=== PATIENT | male | born 1955 | race Caucasian/White ===

== ENCOUNTER 2017-10-03 11:53 | Outpatient (RCR) | payer MEDICARE, SELFPAY ==
[2017-09-10 16:59] LABS: Prothrombin Time (Protime)PT. 35.1 SECONDS (11.7-14.9)
[2017-09-10 17:25] LABS: International Normalized Ratio 3.7
[2017-10-03 12:27] LABS: Absolute Lymphocyte Count 1.36 X10^3/ul (0.83-4.51); Absolute Neutrophil Count 5.1 X10^3/uL (2.0-7.7); Basophil# 0.02 X10^3/uL; Basophil% 0.3 % (0-1); Eosinophil# 0.14 X10^3/uL; Eosinophils% 1.9 % (0-5); Hematocrit 45.5 % (40-54); Hemoglobin 15.1 g/dl (13.0-16.5); Lymphocyte # 1.36 X10^3/ul (4.0); Lymphocyte % 18.5 % (19-41); Mean Corp Hgb Conc 33.2 g/gl (32-36); Mean Corpuscular Hgb 32.7 pg (27.0-32.0); Mean Corpuscular Volume 98.5 fL (80-94); Mean Platelet Vol. 8.9 fl (6.2-12.0); Monocyte# 0.72 X10^3/uL; Monocyte% 9.8 % (0-10); Neutrophil # 5.09 X10^3/uL (2.7-7.7); Neutrophil % 69.1 % (47-70); Platelet Count 179 K/mm3 (150-450); RBC Distribution Width CV 13.9 % (11.6-14.6); RBC Distribution Width SD 49.4 fl (35.1-43.9); Red Blood Count 4.62 M/mm3 (4.6-6.2); White Blood Count 7.4 K/mm3 (4.4-11.0)
[2017-10-03 12:29] LABS: POSITIVE COUNT NO; POSITIVE DIFFERENTIAL NO; POSITIVE MORPHOLOGY NO
[2017-10-03 12:41] LABS: International Normalized Ratio 3.1
[2017-10-03 12:57] LABS: Vitamin B12 506 pg/mL (211-911)
[2017-10-03 13:00] LABS: ALB/GLOB Ratio 0.8 RATIO (0.9-2.4); AST(SGOT) 26 U/L (15-37); Alanine Aminotransfer ALT/SGPT 37 U/L (16-61); Albumin, Serum 3.5 g/dL (3.2-5.0); Alkaline Phosphatase 133 U/L (45-117); Anion Gap 7 (5-15); BUN 11 mg/dL (7-18); BUN/Creat Ratio 11.3 RATIO (10-20); Calcium,Total 8.3 mg/dL (8.5-10.1); Chloride 103 mmol/L (98-107); Creatinine, Serum 0.97 mg/dL (0.70-1.30); EST Glomerular Filtration Rate 83 mL/min (>60); Est Glom Filt Rate - Afr Amer 101 mL/min (>60); Globulin 4.2 g/dL (2.2-4.2); Glucose 93 mg/dL (70-110); Potassium 4.4 mmol/L (3.5-5.1); Protein, Total 7.7 g/dL (6.4-8.2); Sodium Level 138 mmol/L (136-145); Thyroid Stim Hormone (TSH) 1.66 uIU/mL (0.358-3.74)
[2017-10-05 03:56] LABS: Rapid Plasmin Reagin (RPR) NONREACTIVE (NONREACTIVE)
== END 2017-10-03 12:15 | disposition home or self-care (01) ==
LOC: LAB 11:53
PROVIDERS: Family Provider Preventive Medicine Occupational Medicine; PCP Preventive Medicine Occupational Medicine; Visit Provider Internal Medicine Cardiovascular Disease
DX: Z79.01 Long term (current) use of anticoagulants (principal); Z95.4 Presence of other heart-valve replacement; Z79.899 Other long term (current) drug therapy; F03.90 Unspecified dementia, unspecified severity, without behavioral disturbance, psychotic disturbance, mood disturbance, and anxiety
CPT/HCPCS: 36415; 80053; 82607; 84443; 85025; 85610; 86592

== ENCOUNTER → 2017-10-08 12:31 | Outpatient (CLI) | payer MEDICARE, SELFPAY ==
--- NOTE | 2017-10-08 13:05 | MRI_ITS ---
STUDY: MRI BRAIN WITHOUT CONTRAST REASON FOR EXAM: Male, 61 years old. MEMORY LOSS,DEMENTIA X 9 MONTHS. TECHNIQUE: Standardized multiplanar fat and water weighted pulse sequences were obtained. COMPARISON: May 12, 2017 FINDINGS: There is mild cerebral atrophy with widening of the extra-axial spaces and ventricular dilatation. There are a limited number of small white matter hyperintensities, distributed throughout the deep white matter tracts of the cerebral hemispheres, consistent with mild chronic white matter ischemic changes. Normal bilateral basal ganglia. Normal thalami. There is no extra-axial fluid accumulation. Normal flow voids within the major intracranial circulation suggesting patency by spin echo criteria. Normal sella turcica, pituitary gland, infundibular stalk, optic chiasm and hypothalamus. Normal tectal plate and pineal gland. Normal midbrain, vikki and medulla. Normal cerebellum. Normal basal cisterns. Normal bilateral temporal bones. Normal bilateral internal auditory canals. There is a left mastoid fluid signal. MRI/Brain without Contrast IMPRESSION: No acute intracranial abnormality or masses. Mild chronic microvascular ischemic changes. Electronically Signed: Cory Lopez MD at 11:35 EST Tel , Service support ,
== END ==
PROVIDERS: Family Provider Preventive Medicine Occupational Medicine; PCP Preventive Medicine Occupational Medicine; Visit Provider Psychiatry & Neurology Neurology
DX: R41.3 Other amnesia (principal); F03.90 Unspecified dementia, unspecified severity, without behavioral disturbance, psychotic disturbance, mood disturbance, and anxiety
CPT/HCPCS: 70551

== ENCOUNTER 2017-10-30 11:36 | Outpatient (RCR) | payer MEDICARE, SELFPAY ==
[2017-09-10 15:30] VITALS: BMI 35.6
[2017-09-10 15:34] VITALS: BP 96/60
[2017-10-30 12:56] LABS: International Normalized Ratio 3.2; Prothrombin Time (Protime)PT. 31.2 SECONDS (11.7-14.9)
== END 2017-10-30 15:00 | disposition home or self-care (01) ==
LOC: LAB 11:36
PROVIDERS: Family Provider Preventive Medicine Occupational Medicine; PCP Preventive Medicine Occupational Medicine; Visit Provider Internal Medicine Cardiovascular Disease
DX: Z95.4 Presence of other heart-valve replacement (principal); Z79.01 Long term (current) use of anticoagulants
CPT/HCPCS: 36415; 85610

== ENCOUNTER → 2017-11-05 10:35 | Outpatient (CLI) | payer MEDICARE, SELFPAY ==
--- NOTE | 2017-11-05 08:00 | PET_ITS ---
EXAMINATION: FDG PET BRAIN INDICATIONS: A 61-year-old male with reported history of short-term memory loss. COMPARISON EXAMINATION: None available. TECHNIQUE: Following the intravenous administration of 12.05 mCi of F-18 deoxyglucose via the left antecubital fossa, multiplanar image acquisitions of the brain obtained at 60 minutes post radiopharmaceutical administration reveal: SERUM GLUCOSE LEVEL: 101 mg/dl. HEIGHT: 73 inches. WEIGHT: 270 lbs. FINDINGS: 1. Qualitative, visual analysis demonstrates relatively symmetric and preserved glucose metabolism noted in the bilateral frontal, parietal, temporal and occipital lobes of the cerebral cortex. There is symmetric visualization of the basal ganglia, as well as cerebellar hemispheres. PET/PET Brain Metabolic Eval IMPRESSION: 1. NEGATIVE EXAMINATION. There is no definitive qualitative scintigraphic evidence of altered glucose metabolism indicative of dementia, Alzheimer type. (Kimmy, Molecular Imaging and Biology 4:239, 2004). Electronic Signature Allan Meraz D.O. Electronically Signed: Allan Meraz DO at 0:00 EST Tel , Service support ,
== END ==
PROVIDERS: Family Provider Preventive Medicine Occupational Medicine; PCP Preventive Medicine Occupational Medicine; Visit Provider Psychiatry & Neurology Neurology
DX: R41.3 Other amnesia (principal); F03.90 Unspecified dementia, unspecified severity, without behavioral disturbance, psychotic disturbance, mood disturbance, and anxiety
CPT/HCPCS: 78608; A9552

== ENCOUNTER → 2017-11-13 20:01 | Outpatient (CLI) | payer MEDICARE, MEDICAID, SELFPAY | PROVIDERS: Family Provider Preventive Medicine Occupational Medicine; PCP Preventive Medicine Occupational Medicine; Visit Provider Psychiatry & Neurology Neurology | DX: G47.33 Obstructive sleep apnea (adult) (pediatric) (principal) | CPT/HCPCS: 95810 ==

== ENCOUNTER → 2017-12-06 20:22 | Outpatient (CLI) | payer MEDICARE, SELFPAY | PROVIDERS: Family Provider Preventive Medicine Occupational Medicine; PCP Preventive Medicine Occupational Medicine; Visit Provider Psychiatry & Neurology Neurology | DX: G47.33 Obstructive sleep apnea (adult) (pediatric) (principal) | CPT/HCPCS: 95811 ==

== ENCOUNTER 2017-12-18 16:00 | Outpatient (RCR) | payer MEDICARE, SELFPAY ==
[2017-12-11 12:50] LABS: International Normalized Ratio 3.4; Prothrombin Time (Protime)PT. 34.4 SECONDS (11.7-14.9)
[2017-12-18 17:17] LABS: International Normalized Ratio 3.3; Prothrombin Time (Protime)PT. 33.5 SECONDS (11.7-14.9)
[2017-12-18 17:41] LABS: PSA,Total - Annual Screen 1.11 ng/mL (0.00-4.00)
== END 2017-12-18 17:00 | disposition home or self-care (01) ==
LOC: LAB 16:00
PROVIDERS: Family Provider Preventive Medicine Occupational Medicine; PCP Preventive Medicine Occupational Medicine; Visit Provider Internal Medicine Cardiovascular Disease
DX: I25.10 Atherosclerotic heart disease of native coronary artery without angina pectoris (principal); Z95.5 Presence of coronary angioplasty implant and graft; Z95.2 Presence of prosthetic heart valve; Z79.01 Long term (current) use of anticoagulants; Z12.5 Encounter for screening for malignant neoplasm of prostate
CPT/HCPCS: 36415; 84153; 85610; G0103

== ENCOUNTER 2018-01-08 10:38 | Outpatient (RCR) | payer MEDICARE, SELFPAY ==
[2018-01-08 11:53] LABS: International Normalized Ratio 3.3; Prothrombin Time (Protime)PT. 33.7 SECONDS (11.7-14.9)
== END 2018-01-08 11:00 | disposition home or self-care (01) ==
LOC: LAB 10:38
PROVIDERS: Family Provider Preventive Medicine Occupational Medicine; PCP Preventive Medicine Occupational Medicine; Visit Provider Internal Medicine Cardiovascular Disease
DX: I25.10 Atherosclerotic heart disease of native coronary artery without angina pectoris (principal); Z95.5 Presence of coronary angioplasty implant and graft; Z95.2 Presence of prosthetic heart valve; Z79.01 Long term (current) use of anticoagulants
CPT/HCPCS: 36415; 85610

== ENCOUNTER 2018-02-26 11:58 | Outpatient (RCR) | payer MEDICARE, SELFPAY ==
[2018-02-26 12:23] LABS: Prothrombin Time (Protime)PT. 36.7 SECONDS (11.7-14.9)
[2018-02-26 12:34] LABS: International Normalized Ratio 3.7
== END 2018-02-26 13:00 | disposition home or self-care (01) ==
LOC: LAB 11:58
PROVIDERS: Family Provider Preventive Medicine Occupational Medicine; PCP Preventive Medicine Occupational Medicine; Visit Provider Internal Medicine Cardiovascular Disease
DX: I25.10 Atherosclerotic heart disease of native coronary artery without angina pectoris (principal); Z95.5 Presence of coronary angioplasty implant and graft; Z95.2 Presence of prosthetic heart valve; Z79.01 Long term (current) use of anticoagulants
CPT/HCPCS: 36415; 85610

== ENCOUNTER 2018-03-07 12:29 | Outpatient (RCR) | payer MEDICARE, SELFPAY ==
[2018-03-07 13:36] LABS: International Normalized Ratio 3.4; Prothrombin Time (Protime)PT. 34.8 SECONDS (11.7-14.9)
== END 2018-03-07 14:00 | disposition home or self-care (01) ==
LOC: LAB 12:29
PROVIDERS: Family Provider Preventive Medicine Occupational Medicine; PCP Preventive Medicine Occupational Medicine; Visit Provider Internal Medicine Cardiovascular Disease
DX: I25.10 Atherosclerotic heart disease of native coronary artery without angina pectoris (principal); Z95.5 Presence of coronary angioplasty implant and graft; Z95.2 Presence of prosthetic heart valve; Z79.01 Long term (current) use of anticoagulants
CPT/HCPCS: 36415; 85610

== ENCOUNTER 2018-04-10 08:20 | Outpatient (RCR) | payer MEDICARE, SELFPAY ==
[2018-04-10 09:51] LABS: International Normalized Ratio 3.3; Prothrombin Time (Protime)PT. 33.8 SECONDS (11.7-14.9)
[2018-04-10 10:03] LABS: AST(SGOT) 27 U/L (15-37); Alanine Aminotransfer ALT/SGPT 36 U/L (16-61); Albumin, Serum 3.4 g/dL (3.2-5.0); Alkaline Phosphatase 119 U/L (45-117); Bilirubin, Direct 0.12 mg/dL (0.00-0.30); Cholesterol 145 mg/dL (200); Globulin 3.9 g/dL (2.2-4.2); High Density Lipoprotein 43 mg/dL; Protein, Total 7.3 g/dL (6.4-8.2); Triglycerides 134 mg/dL; Very Low Density Lipoprotein 27 mg/dL (5-40)
== END 2018-04-10 10:00 | disposition home or self-care (01) ==
LOC: LAB 08:20
PROVIDERS: Family Provider Preventive Medicine Occupational Medicine; PCP Preventive Medicine Occupational Medicine; Visit Provider Internal Medicine Cardiovascular Disease
DX: I25.10 Atherosclerotic heart disease of native coronary artery without angina pectoris (principal); Z95.5 Presence of coronary angioplasty implant and graft; Z95.2 Presence of prosthetic heart valve; Z79.01 Long term (current) use of anticoagulants
CPT/HCPCS: 36415; 80061; 80076; 85610

== ENCOUNTER → 2018-04-18 08:44 | Outpatient (CLI) | payer MEDICARE, MEDICAID, SELFPAY | PROVIDERS: Family Provider Preventive Medicine Occupational Medicine; PCP Preventive Medicine Occupational Medicine; Visit Provider Internal Medicine Cardiovascular Disease | DX: I35.2 Nonrheumatic aortic (valve) stenosis with insufficiency (principal) | CPT/HCPCS: 93306; Q9957; A4216; C8929 ==

== ENCOUNTER → 2018-04-23 08:20 | Outpatient (CLI) | payer MEDICARE, MEDICAID, SELFPAY | PROVIDERS: Family Provider Preventive Medicine Occupational Medicine; PCP Preventive Medicine Occupational Medicine; Visit Provider Preventive Medicine Occupational Medicine | DX: R10.11 Right upper quadrant pain (principal) | CPT/HCPCS: 76705 ==

== ENCOUNTER → 2018-05-14 13:00 | Outpatient (CLI) | payer MEDICARE, MEDICAID, SELFPAY ==
--- NOTE | 2018-05-14 13:02 | CT_ITS ---
STUDY: CTA OF THE ABDOMINAL AORTA AND BILATERAL LOWER EXTREMITIES REASON FOR EXAM: Male, 62 years old. Abdominal pain history of appendectomy calvarium. RADIATION DOSAGE (If Supplied By Facility): CTDIvol = ( 47.73 ) mGy, DLP = ( 1363.39 ) mGycm TECHNIQUE: Axial CT angiography multi-detector data acquisition was obtained from the lung bases to the acetabulum following intravenous administration of 100 ml of Isovue 370 contrast. Axial images and MIP images were reconstructed from the axial data set. Post-processing of the angiographic images was performed, with multiplanar reformation and 3D reconstruction. The patient was premedicated for iodine contrast. Individualized dose optimization techniques were used for this CT. TECHNICAL QUALITY: Good COMPARISON: CT angiogram January 12, 2015 Descriptors of Narrowing: None (0%) Mild (< 50%) Moderate (50-70%) Severe (70-90%) Subtotal/Total Occlusion (90-100%) Non-Evaluable (technically non-diagnostic FINDINGS: Abdominal aorta: Aorta is mildly tortuous as it enters the abdomen with minimal calcification. The aorta and at the celiac is not calcified measuring 2.6 x 2.6 cm. Aorta at the takeoff of the right renal artery measures 2.1 x 2.1 cm. There is calcification at the takeoff of the left renal artery and the aorta. The aorta below the kidneys measures 2.4 x 2.1 cm. Above the bifurcation the aorta is partially calcified and measures 3.0 x 2.9 cm. Celiac and superior mesenteric arteries: There is minimal plaque formation at the takeoff of the celiac. There is minimal less than 50% narrowing of the takeoff of the left celiac axis. There is calcification of the takeoff of the superior mesenteric artery with minimal peripheral thrombus and less than 50% stenosis. There is some calcification of the distal celiac without obstruction. Inferior mesenteric artery: There is calcification of the take off of the inferior mesenteric artery. Right renal artery(arteries): There is calcification the takeoff of the right renal artery with minimal narrowing. Left renal artery(arteries): There is fairly dense calcification the takeoff of the left renal artery with moderate narrowing of the takeoff. There is good contrast enhancement of the left renal artery. Right common iliac artery: There is moderate plaque formation the takeoff of the right iliac. Right proximal external iliac artery: There is mild to moderate plaque formation of the mid right external iliac. The distal right external iliac is out of the [id number]-geja. Right proximal internal iliac artery: There is mild diffuse narrowing. Left common iliac artery: There is mild diffuse narrowing. There is mild to moderate plaque formation at the takeoff. Left proximal external iliac artery: There is mild plaque formation minimal narrowing narrowing. Left proximal internal iliac artery: There is minimal calcification. Within the left and right hepatic lobes there are are small cystic structures measuring up to 5.8 mm suggesting small cyst or prominent portal triads. This is similar to the prior study. The gallbladder is nonvisualized. The spleen pancreas adrenal glands are normal. There is stable bilateral extrarenal pelvis. There is a floz-yi-otmdcqzq amount of stool in the colon. There is diverticulosis without diverticulitis. There is degenerative change in the thoracolumbar spine. There is a spinal fusion at L4-L5 and L5-S1. At the level of L2-L3 L3-L4 there is severe disc space narrowing and endplate sclerosis moderate neural foramina narrowing mild to moderate central stenosis. At L4-L5 there is a broad disc bulge and moderate to severe neural foramina narrowing moderate to severe central stenosis. There is mild neural foramina narrowing at L5-S1. There is degenerative change of the SI joints. There is bilateral lower lobe atelectasis and/or early developing infiltrates. There is a nodular density measuring 7.9 mm which is not seen on prior study. There is a partially visualized aortic cardiac valve repair. CT/CTA Abdomen W/WO Contrast IMPRESSION: Findings as detailed above with mild atherosclerotic disease of aorta. There is minimal relative distention of the distal aorta up to 3 cm slightly larger than prior study when it measured 2.8 x 2.6 cm, indicating mild aneurysmal dilatation for which a 6-12 month serial follow-up is recommended or as clinically appropriate. There is mild narrowing of the proximal celiac without stenosis. New left lower lobe 7.9 mm nodule which may represent postinflammatory change and/or neoplastic nodule. There is bilateral lower lobe minimal groundglass opacity suggesting atelectasis and/or developing infiltrates. Electronically Signed: Teetee Ni MD at 16:49 EDT Tel , Service support ,
[2018-05-14 13:15] LABS: CREATININE FINGERSTICK 1.1 mg/dL (0.70-1.30)
[2018-05-14 13:25] VITALS: BP 133/67; PULSE 62; RESP 18; O2SAT 95; BMI 33.6
== END ==
PROVIDERS: Family Provider Preventive Medicine Occupational Medicine; PCP Preventive Medicine Occupational Medicine; Visit Provider Internal Medicine Gastroenterology
DX: R10.9 Unspecified abdominal pain (principal); I77.4 Celiac artery compression syndrome
CPT/HCPCS: 74175; Q9967; J3490

== ENCOUNTER → 2018-06-07 08:51 | Outpatient (CLI) | payer MEDICARE, MEDICAID, SELFPAY ==
[2018-06-07 11:51] VITALS: PULSE 100; PULSE 66; PULSE 67; PULSE 89; PULSE 92; PULSE 94; PULSE 95; O2SAT 93; O2SAT 94; O2SAT 95; O2SAT 96; O2SAT 97
--- NOTE | 2018-06-07 14:39 | PCM.PSN.6M ---
PSN 6 Minute Walk Test - 6 Minute Walk Test 6 Minute Walk Test: 6 Minute Walk Test PSN:6-Minute Walk Test Start: 06/07/18 11:12 Freq: Status: Active Protocol: RESP.6MINW Document 06/07/18 11:51 [facility] (Rec: 06/07/18 11:54 [facility] [id number]) 6 Minute Walk Test Date Performed 06/07/18 Time Performed 09:00 Height 6 ft 1 in Weight: 117.934 kg Weight in Pounds 260.[address]: Misael Norton Assistive device used: None Pre-test Oxygen Delivery Method Room Air Pulse Ox (%) 96 Pulse Rate (60-100 beats/min) 66 Dyspnea Elba Scale (0-10) 4 Reported Symptoms Increased Work of Breathing 1st minute Oxygen Delivery Method Room Air Pulse Ox (%) 95 Pulse Rate (60-100 beats/min) 92 Dyspnea Elba Scale (0-10) 4 Number of Rests Taken 0 Reported Symptoms Increased Work of Breathing 2nd minute Oxygen Delivery Method Room Air Pulse Ox (%) 94 Pulse Rate (60-100 beats/min) 89 Dyspnea Elba Scale (0-10) 4 Number of Rests Taken 0 Reported Symptoms Increased Work of Breathing 3rd minute Oxygen Delivery Method Room Air Pulse Ox (%) 94 Pulse Rate (60-100 beats/min) 94 Dyspnea Elba Scale (0-10) 5 Number of Rests Taken 0 Reported Symptoms Increased Work of Breathing 4th minute Oxygen Delivery Method Room Air Pulse Ox (%) 93 Pulse Rate (60-100 beats/min) 95 Dyspnea Elba Scale (0-10) 5 Number of Rests Taken 0 Reported Symptoms Increased Work of Breathing 5th minute Oxygen Delivery Method Room Air Pulse Ox (%) 94 Pulse Rate (60-100 beats/min) 89 Dyspnea Elba Scale (0-10) 5 Number of Rests Taken 0 Reported Symptoms Increased Work of Breathing 6th minute Oxygen Delivery Method Room Air Pulse Ox (%) 94 Pulse Rate (60-100 beats/min) 100 Dyspnea Elba Scale (0-10) 5 Number of Rests Taken 0 Reported Symptoms Increased Work of Breathing Post-test Oxygen Delivery Method Room Air Pulse Ox (%) 97 Pulse Rate (60-100 beats/min) 67 Dyspnea Elba Scale (0-10) 3 Reported Symptoms Increased Work of Breathing Full Laps Walked 20 Partial Lap, Number of Tiles Walked 12 Total Distance Walked (ft) 1192 - Interpretation Interpretation: The patient was able to ambulate 1192 feet over the course of 6 minutes on room air with no assistive devices or breaks. The patient experienced no significant desaturation or tachycardia during testing. - Recommendations Recommendations: No supplemental oxygen is indicated. Normal walking oximetry.
--- NOTE | 2018-07-23 12:38 | WT_ITS ---
PSN 6 Minute Walk Test - 6 Minute Walk Test 6 Minute Walk Test: 6 Minute Walk Test PSN:6-Minute Walk Test Start: 06/07/18 11:12 Freq: Status: Active Protocol: RESP.6MINW Document 06/07/18 11:51 [facility] (Rec: 06/07/18 11:54 [facility] [id number]) 6 Minute Walk Test Date Performed 06/07/18 Time Performed 09:00 Height 6 ft 1 in Weight: 117.934 kg Weight in Pounds 260.[address]: Misael Norton Assistive device used: None Pre-test Oxygen Delivery Method Room Air Pulse Ox (%) 96 Pulse Rate (60-100 beats/min) 66 Dyspnea Elba Scale (0-10) 4 Reported Symptoms Increased Work of Breathing 1st minute Oxygen Delivery Method Room Air Pulse Ox (%) 95 Pulse Rate (60-100 beats/min) 92 Dyspnea Elba Scale (0-10) 4 Number of Rests Taken 0 Reported Symptoms Increased Work of Breathing 2nd minute Oxygen Delivery Method Room Air Pulse Ox (%) 94 Pulse Rate (60-100 beats/min) 89 Dyspnea Elba Scale (0-10) 4 Number of Rests Taken 0 Reported Symptoms Increased Work of Breathing 3rd minute Oxygen Delivery Method Room Air Pulse Ox (%) 94 Pulse Rate (60-100 beats/min) 94 Dyspnea Elba Scale (0-10) 5 Number of Rests Taken 0 Reported Symptoms Increased Work of Breathing 4th minute Oxygen Delivery Method Room Air Pulse Ox (%) 93 Pulse Rate (60-100 beats/min) 95 Dyspnea Elba Scale (0-10) 5 Number of Rests Taken 0 Reported Symptoms Increased Work of Breathing 5th minute Oxygen Delivery Method Room Air Pulse Ox (%) 94 Pulse Rate (60-100 beats/min) 89 Dyspnea Elba Scale (0-10) 5 Number of Rests Taken 0 Reported Symptoms Increased Work of Breathing 6th minute Oxygen Delivery Method Room Air Pulse Ox (%) 94 Pulse Rate (60-100 beats/min) 100 Dyspnea Elba Scale (0-10) 5 Number of Rests Taken 0 Reported Symptoms Increased Work of Breathing Post-test Oxygen Delivery Method Room Air Pulse Ox (%) 97 Pulse Rate (60-100 beats/min) 67 Dyspnea Elba Scale (0-10) 3 Reported Symptoms Increased Work of Breathing Full Laps Walked 20 Partial Lap, Number of Tiles Walked 12 Total Distance Walked (ft) 1192 - Interpretation Interpretation: The patient was able to ambulate 1192 feet over the course of 6 minutes on room air with no assistive devices or breaks. The patient experienced no significant desaturation or tachycardia during testing. - Recommendations Recommendations: No supplemental oxygen is indicated. Normal walking oximetry.
== END ==
PROVIDERS: Family Provider Preventive Medicine Occupational Medicine; PCP Preventive Medicine Occupational Medicine; Referring Provider Internal Medicine Critical Care Medicine; Visit Provider Internal Medicine Critical Care Medicine
DX: R06.02 Shortness of breath (principal); R06.00 Dyspnea, unspecified; R06.01 Orthopnea
CPT/HCPCS: 94618

== ENCOUNTER → 2018-06-08 08:58 | Outpatient (CLI) | payer MEDICARE, MEDICAID, SELFPAY ==
--- NOTE | 2018-06-08 09:12 | CT_ITS ---
STUDY: CT CHEST WITHOUT CONTRAST REASON FOR EXAM: Male, 62 years old. Pulmonary nodule follow-up, valve replacement, CABG and atrial fibrillation. RADIATION DOSAGE (If Supplied By Facility): CTDIvol = ( 17.94 ) mGy, DLP = ( 708.50 ) mGycm TECHNIQUE: Transaxial 2.5 mm imaging was performed without the administration of intravenous contrast material. Multiplanar coronal and sagittal images were reformatted. This examination is limited for the evaluation of gastrointestinal, solid organs and vascular structures due to the lack of intravenous contrast. Individualized dose optimization techniques were used for this CT. COMPARISON: CTA abdomen 05/14/2018. CT chest 11/21/2013. FINDINGS: The previously seen pleural based nodular density posterior medial left lower lobe with adjacent linear pattern likely atelectasis has decreased in size and density since previous examination, currently measuring 0.5 x 0.6 cm with resolution of previous atelectatic pattern. Mild symmetric centrilobular emphysema, peripheral interstitial pulmonary changes most consistent with mild pulmonary fibrosis in the apices as well as lung bases. The atelectatic changes/compression of basilar dependent parenchyma is less pronounced compared to previous CTA abdomen examination. There is no demonstrated pleural abnormality. Normal heart and pericardium. Post aortic valve replacement with postsurgical changes. There is coronary artery calcification/ Normal mediastinum. Normal hilar regions. Normal unenhanced pulmonary arteries. There is atherosclerotic calcification of the aortic arch with tortuosity and elongation of the aortic arch and descending thoracic aorta. There is ectasia of the ascending thoracic aorta 4.8 x 4.8 cm, previously 4.9 x 4.8 cm descending thoracic aorta of 2.9 x 2.9 cm. Status post CABG Appropriate osseous structures. There is no demonstrated abnormality of the visualized upper abdomen. CT/Chest without Contrast IMPRESSION: Improved aeration with significant resolution of previous atelectatic changes particularly involving the posterior medial left lower lobe with a faint pleural-based residual smaller nodule which has decreased density with improved aeration since previous examination felt to likely a benign entity. No other pulmonary nodules or masses detected. Mild symmetric centrilobular emphysema, mild pulmonary fibrosis. Ectasia of the ascending thoracic aorta, atherosclerosis, coronary artery disease, status post-CABG are stable findings. CT Follow-Up of Small Pulmonary Nodules Nodule size is average of length and width. Nodule size. Low risk patient. Non smoking history. <4mm No follow-up needed (risk of malignancy <1%) 4-6mm Follow up CT at 12 months, if unchanged, no further imaging needed. 6-8mm Initial follow up at 6-12 month, then at 18-24 months if no changes. > 8mm Follow-up CT at 3, 9, and 24 months, dynamic contrast CT, PET and /or biopsy. Nodule size. High risk patients. Smoking history. <4mm Follow-up 12 months: if unchanged, no further follow-up. 4-6mm Initial follow-up at 6-12 months,then at 18-24 months if no change. 6-8mm Initial follow-up at 3-6months, then at 9-12 and 24 months if no change. >8mm Same as for low risk patient. [employer] STATEMENT Electronically Signed: Marissa Rodriguez MD at 7:43 EDT , Service support ,
== END ==
PROVIDERS: Family Provider Preventive Medicine Occupational Medicine; PCP Preventive Medicine Occupational Medicine; Referring Provider Internal Medicine Critical Care Medicine; Visit Provider Internal Medicine Critical Care Medicine
DX: R91.1 Solitary pulmonary nodule (principal)
CPT/HCPCS: 71250

== ENCOUNTER → 2018-06-13 08:22 | Outpatient (CLI) | payer MEDICARE, SELFPAY ==
--- NOTE | 2018-06-13 13:04 | PFT ---
INTRODUCTION: The patient is a 62-year-old male that presents for pulmonary function studies secondary to a diagnosis of shortness of breath. Respiratory therapy reports good patient effort. Bronchodilators were used during testing. INTERPRETATION: Forced expiration spirometry demonstrates the presence of a mild large airways obstructive ventilatory defect. There was no significant response to aerosolized bronchodilators. Spirograms are of good quality and do not plateau indicating slow emptying of the lungs. Body plethysmography was performed and revealed a TLC and RV at the upper limits of normal. Diffusing capacity by single breath CO is within normal limits at 73% of predicted. IMPRESSION: These pulmonary function studies demonstrate the presence of an irreversible mild large airways obstructive ventilatory defect. TLC and RV are at the upper limits of normal, indicating possible early hyperinflation/air trapping. Diffusing capacity is preserved.
== END ==
PROVIDERS: Family Provider Preventive Medicine Occupational Medicine; PCP Preventive Medicine Occupational Medicine; Referring Provider Internal Medicine Critical Care Medicine; Visit Provider Internal Medicine Critical Care Medicine
DX: R06.00 Dyspnea, unspecified (principal); R06.01 Orthopnea; R06.02 Shortness of breath; G47.33 Obstructive sleep apnea (adult) (pediatric)
CPT/HCPCS: 94060; 94726; 94729; 94762

== ENCOUNTER → 2018-06-18 12:02 | Outpatient (CLI) | payer MEDICARE, SELFPAY | PROVIDERS: Family Provider Preventive Medicine Occupational Medicine; PCP Preventive Medicine Occupational Medicine; Visit Provider Internal Medicine Critical Care Medicine | DX: R69 Illness, unspecified (principal) ==

== ENCOUNTER → 2018-09-12 14:32 | Outpatient (CLI) | payer MEDICARE, SELFPAY ==
[2018-09-12 11:19] VITALS: BMI 33.9
--- NOTE | 2018-09-12 14:36 | CT_ITS ---
STUDY: CT CHEST WITHOUT CONTRAST REASON FOR EXAM: Male, 62 years old. Pulmonary nodule follow-up RADIATION DOSAGE (If Supplied By Facility): CTDIvol = ( 18.89 ) mGy, DLP = ( 769.50 ) mGycm TECHNIQUE: Transaxial imaging was performed without the administration of intravenous contrast material. Multiplanar coronal and sagittal images were reformatted. Individualized dose optimization techniques were used for this CT. COMPARISON: 06/08/2018 and 11/21/2013 FINDINGS: Pleural-based nodule evident on the prior chest CT has resolved with no noncalcified pulmonary nodule/mass identified on the current exam. Minimal amount of subpleural reticulation along the periphery of the bilateral upper lobes and bilateral lower lobes with overall decreased atelectasis in the lung bases. There is mild amount of central, cylindrical bronchiectasis. There is no demonstrated pleural abnormality. Normal heart and pericardium. Coronary artery calcifications and aortic valve replacement stable. Sternal wires and mediastinal surgical clips compatible with prior CABG. Normal mediastinum. Normal hilar regions. Normal unenhanced pulmonary arteries. There is atherosclerotic calcification of the aortic arch with tortuosity and elongation of the aortic arch and descending thoracic aorta. Ectasia of the ascending thoracic aorta similar with axial diameter measuring up to 4.8 cm, stable. Degenerative changes of the thoracic spine, stable. No compression deformity or lytic/sclerotic bone lesion. There is no demonstrated abnormality of the visualized upper abdomen. CT/Chest without Contrast IMPRESSION: 1. Since 06/08/2018, favorable change. Resolution of pleural-based nodule in the left lower lobe on the prior CT chest. NO pulmonary nodule/mass. 2. Mild bronchiectasis with subpleural fibrotic changes. Stable. 3. Decreased bibasilar atelectasis. 4. Stable ectasia of the ascending thoracic aorta. Electronically Signed: Feliz Jarrett MD at 16:22 EST , Service support ,
== END ==
PROVIDERS: Family Provider Preventive Medicine Occupational Medicine; PCP Preventive Medicine Occupational Medicine; Referring Provider Internal Medicine Critical Care Medicine; Visit Provider Internal Medicine Critical Care Medicine
DX: R91.1 Solitary pulmonary nodule (principal)
CPT/HCPCS: 71250

== ENCOUNTER 2018-09-12 14:59 | Outpatient (RCR) | payer MEDICARE, OTHER, SELFPAY ==
[2018-09-12 11:19] VITALS: BMI 33.9
[2018-09-12 15:49] LABS: Prothrombin Time (Protime)PT. 31.2 SECONDS (11.7-14.9)
== END 2018-09-12 16:00 | disposition home or self-care (01) ==
LOC: LAB 14:59
PROVIDERS: Family Provider Preventive Medicine Occupational Medicine; PCP Preventive Medicine Occupational Medicine; Visit Provider Internal Medicine Cardiovascular Disease
DX: R91.1 Solitary pulmonary nodule (principal); I25.10 Atherosclerotic heart disease of native coronary artery without angina pectoris; Z95.5 Presence of coronary angioplasty implant and graft; Z95.2 Presence of prosthetic heart valve; Z79.01 Long term (current) use of anticoagulants
CPT/HCPCS: 36415; 71250; 85610

== ENCOUNTER → 2018-09-18 14:58 | Outpatient (CLI) | payer MEDICARE, OTHER, SELFPAY ==
[2018-09-16 08:03] VITALS: BMI 34.2
== END ==
PROVIDERS: Family Provider Preventive Medicine Occupational Medicine; PCP Preventive Medicine Occupational Medicine; Referring Provider Nurse Practitioner Acute Care; Visit Provider Nurse Practitioner Acute Care
DX: J47.9 Bronchiectasis, uncomplicated (principal)
CPT/HCPCS: 94667

== ENCOUNTER → 2018-09-26 19:54 | Outpatient (CLI) | payer MEDICARE, SELFPAY ==
[2018-09-16 08:03] VITALS: BMI 34.2
== END ==
PROVIDERS: Family Provider Preventive Medicine Occupational Medicine; PCP Preventive Medicine Occupational Medicine; Referring Provider Nurse Practitioner Acute Care; Visit Provider Nurse Practitioner Acute Care
DX: G47.33 Obstructive sleep apnea (adult) (pediatric) (principal)
CPT/HCPCS: 95811

== ENCOUNTER → 2018-09-27 12:42 | Outpatient (CLI) | payer MEDICARE, SELFPAY ==
[2018-09-16 08:03] VITALS: BMI 34.2
== END ==
PROVIDERS: Family Provider Preventive Medicine Occupational Medicine; PCP Preventive Medicine Occupational Medicine; Referring Provider Nurse Practitioner Acute Care; Visit Provider Nurse Practitioner Acute Care
DX: G47.33 Obstructive sleep apnea (adult) (pediatric) (principal)

== ENCOUNTER 2018-10-03 19:48 | Observation (INO) | payer MEDICARE, OTHER, SELFPAY ==
[2018-09-16 08:03] VITALS: BMI 34.2
[2018-10-03 19:50] VITALS: BP 147/92; PULSE 68; RESP 22; TEMP 36.4; O2SAT 98; BMI 35.9
--- NOTE | 2018-10-03 20:07 | EKG12_ITS ---
Test Reason : CP Blood Pressure : / mmHG Vent. Rate : 070 BPM Atrial Rate : 070 BPM P-R Int : 214 ms QRS Dur : 172 ms QT Int : 484 ms P-R-T Axes : 063 028 172 degrees QTc Int : 522 ms Sinus rhythm with 1st degree A-V block Possible Left atrial enlargement Left bundle branch block Abnormal ECG Confirmed by JENNI MCLAIN, BERONICA ([id number]), industrial editor RICCI MONTGOMERY ([id number]) on 10/08/2018 8:40:26 AM Referred By: Brandy Larkin Confirmed By:BERONICA ARTEAGA MD
--- NOTE | 2018-10-03 20:07 | RAD_ITS ---
STUDY: X-RAY CHEST REASON FOR EXAM: Male, 62 years old. Left-sided chest pain. TECHNIQUE: Portable chest. COMPARISON: 09/12/2018. FINDINGS: Sternotomy wires are present. The lungs are clear and expanded. There is no demonstrated pleural abnormality. Normal size heart. Normal mediastinum and damian. Normal visualized pulmonary arteries. Normal visualized aortic arch and descending thoracic aorta. Normal visualized thoracic spine. Normal visualized ribs, clavicles, and shoulders. There is no demonstrated abnormality of the visualized soft tissue structures of the upper abdomen. RAD/Chest 1 View (Portable) IMPRESSION: Normal x-ray examination of the chest. Electronically Signed: Zoe Rivera MD at 21:10 EST Tel , Service support ,
[2018-10-03 20:16] LABS: Absolute Lymphocyte Count 1.34 X10^3/ul (0.83-4.51); Absolute Neutrophil Count 4.3 X10^3/uL (2.0-7.7); Basophil# 0.02 X10^3/uL; Basophil% 0.3 % (0-1); Eosinophil# 0.18 X10^3/uL; Eosinophils% 2.8 % (0-5); Hematocrit 42.4 % (40-54); Hemoglobin 14.1 g/dl (13.0-16.5); Lymphocyte # 1.34 X10^3/ul (4.0); Lymphocyte % 20.6 % (19-41); Mean Corp Hgb Conc 33.3 g/gl (32-36); Mean Corpuscular Hgb 32.2 pg (27.0-32.0); Mean Corpuscular Volume 96.8 fL (80-94); Mean Platelet Vol. 8.5 fl (6.2-12.0); Monocyte# 0.66 X10^3/uL; Monocyte% 10.1 % (0-10); Neutrophil # 4.29 X10^3/uL (2.7-7.7); Neutrophil % 65.9 % (47-70); POSITIVE COUNT NO; POSITIVE DIFFERENTIAL NO; POSITIVE MORPHOLOGY NO; Platelet Count 182 K/mm3 (150-450); RBC Distribution Width CV 13.3 % (11.6-14.6); RBC Distribution Width SD 47.6 fl (35.1-43.9); Red Blood Count 4.38 M/mm3 (4.6-6.2); White Blood Count 6.5 K/mm3 (4.4-11.0)
--- NOTE | 2018-10-03 20:18 | ED.DCSUM_ITS ---
- ER Visit Summary Date of Service: 10/03/18 Chief Complaint: Chest pain History of Present Illness: The patient is a 62 M presenting with chest pain. Patient states this started 1.5 hours ago. He states he was playing with his dog and developed midsternal and left-sided chest pain which radiates to his l eft arm. He has associated shortness of breath. He also has associated lightheadedness. He denies nausea, vomiting, diaphoresis. Pain is 8/10. It is worsened with exertion. He has a history of coronary disease, previous CABG and aortic valve replacement. He is on Plavix and Coumadin. He has a family history of early heart disease and is a previous smoker. Physical Examination: Vitals are stable. Patient is afebrile. Alert no acute distress. HEENT exam is unremarkable. Neck is supple. Lungs are mild expiratory wheezing bilaterally. Heart is regular rate and rhythm. Abdomen is soft nontender nondistended. Extremities are unremarkable. Skin is warm and dry. No focal neurologic deficit. Remainder of exam is unremarkable. Emergency Department Course and Treatment: Patient was given aspirin, morphine, Zofran. He was given albuterol aerosol. EKG is sinus rate of 70 with left bundle branch block. Chest x-ray shows no acute process. CBC, chemistries unremarkable. INR is 3.4. Troponin is negative. On repeat evaluation, patient is chest pain-free. Discussed with the hospitalist for admission. Disposition: Observation Impression: Chest pain This note was generated with [employer] dictation software. It may contain incorrect words, spelling, and punctuation that were not noted in review of the chart prior to signing ED Disposition - Plan for ED Patient: Referrals: Bartolo Mitchell DO [Primary Care Provider] -
[2018-10-03 20:19] VITALS: O2SAT 97
[2018-10-03] MEDS: Aspirin 81 MG TAB.CHEW 324 MG PO (20:20)
[2018-10-03] MEDS: Morphine 4 MG/ML Syringe IV (20:20)
[2018-10-03] MEDS: Ondansetron 4 MG/2 ML Vial IV (20:20)
[2018-10-03 20:23] LABS: International Normalized Ratio 3.4; Prothrombin Time (Protime)PT. 34.8 SECONDS (11.7-14.9)
[2018-10-03 20:25] VITALS: PULSE 73; RESP 19
[2018-10-03] MEDS: Albuterol 2.5 MG/3 ML VIAL.NEB. INHALATION (20:25)
[2018-10-03 20:36] LABS: Anion Gap 6 (5-15); BUN 11 mg/dL (7-18); BUN/Creat Ratio 10.6 RATIO (10-20); Calcium,Total 8.2 mg/dL (8.5-10.1); Chloride 106 mmol/L (98-107); Creatinine, Serum 1.04 mg/dL (0.70-1.30); EST Glomerular Filtration Rate 77 mL/min (>60); Est Glom Filt Rate - Afr Amer 93 mL/min (>60); Estimated Creatinine Clearance 86.72 ml/min; Glucose 105 mg/dL (74-106); Sodium Level 140 mmol/L (136-145)
--- NOTE | 2018-10-03 21:08 | PCM.HP.STD ---
Problem List (1) Stage 1 mild COPD by GOLD classification Status: Chronic (2) JAMES (obstructive sleep apnea) Status: Chronic Comment: AHI 16.7 - noncompliant (3) Atherosclerosis of coronary artery of grindstone heart without angina pectoris Status: Chronic Comment: CABG MEDINA-LAD, SVG-D1, SVG-OM1, SVG-PDA 01/2003 POBA-Anastomosis site of the MEDINA-LAD 06/16/2004 [facility] [id number]-RCA 03/2005 [id number]-D1 07/15/2012 @ [facility] (4) Presence of aortocoronary bypass graft Status: Chronic Comment: MEDINA-LAD, SVG-D1, SVG-OM1, SVG-PDA 01/2003 @ [facility] (5) H/O aortic valve replacement Status: Chronic Comment: Mechanical, on Coumadin therapy 09/2004 [facility] @ [facility] (6) Hypertension Status: Chronic History of Present Illness Date of Admission: 10/03/18 Chief Complaint: Chest pain. The patient is a 62 year old M with past medical history as mentioned above presented to the emergency room because of chest pain. This evening, he was playing with his dog when he started having left-sided chest pain, sharp pain, 8 out of 10 in severity, radiates to his left arm, lasted for about 1 hour, associated with mild shortness of breath, nausea and dizziness and without aggravating or relieving factors. When the pain lasted for about an hour, he decided to come to the emergency department. At this time, his pain is better after he received IV morphine and aspirin and it is down to 5 out of 10 in severity. In the emergency department, his vital signs were stable. Routine blood work was unremarkable. EKG revealed normal sinus rhythm with first degree AV block, left bundle branch block and this LBBB was not present on EKG from October,, no acute ST elevation. Chest x-ray showed no acute findings. Patient is being admitted for chest pain for evaluation. 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 (Chronic) Nonrheumatic aortic (valve) stenosis with insufficiency (Chronic) Atherosclerosis of coronary artery of grindstone heart without angina pectoris (Chronic) CABG MEDINA-LAD, SVG-D1, SVG-OM1, SVG-PDA 01/2003 POBA-Anastomosis site of the MEDINA-LAD 06/16/2004 [facility] [id number]-RCA 03/2005 [id number]-MAY-WDF-D1 07/15/2012 @ [facility] History of coronary artery stent placement (Chronic) POBA-Anastomosis site of the MEDINA-LAD 06/16/2004 [facility] [id number]-HFH-Tlp-RCA 03/2005 @ [facility] [id number]-D1 07/15/2012 @ [facility] Non-ST elevation (NSTEMI) myocardial infarction (Chronic) Presence of aortocoronary bypass graft (Chronic ~01/2003) MEDINA-LAD, SVG-D1, SVG-OM1, SVG-PDA 01/2003 @ [facility] H/O aortic valve replacement (Chronic ~09/2004) Mechanical, on Coumadin therapy 09/2004 [facility] @ [facility] Hypertension (Chronic) Medical History: Medical History (Last Reviewed 09/16/18 @ 08:19 by Lilliam Denney, MEDICAL HOUSEKEEPER-C) custodial (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) use of anticoagulants (Chronic) Z79.01 Nonrheumatic aortic (valve) stenosis with insufficiency (Chronic) I35.2 Atherosclerosis of coronary artery of grindstone heart without angina pectoris (Chronic) I25.10 CABG MEDINA-LAD, SVG-D1, SVG-OM1, SVG-PDA 01/2003 POBA-Anastomosis site of the MEDINA-LAD 06/16/2004 [facility] [id number]-HUP-[id number]-RCA 03/2005 [id number]-[id number]-D1 07/15/2012 @ [facility] Non-ST elevation (NSTEMI) myocardial infarction (Chronic) I21.4 Hypertension (Chronic) I10 Arthritis M19.90 Bipolar 1 disorder F31.9 COPD (chronic obstructive pulmonary disease) J44.9 CVA (cerebral vascular accident) I63.9 Depression F32.9 GERD (gastroesophageal reflux disease) K21.9 Lumbar disc disease M51.9 Obstructive sleep apnea G47.33 Peptic ulcer disease K27.9 Status post placement of implantable loop recorder Onset Date: ~2004 Z95.818 Syncope and collapse R55 Bicuspid aortic valve Q23.1 Allergies iodine Allergy (Verified 10/03/18 19:49) Other low BP- does fine with premedication contrast dye Allergy (Uncoded 10/03/18 19:49) Shortness of breath Home Medications: Ambulatory Orders Medication Instructions Recorded Benztropine [Cogentin] 0.5 mg PO BID 10/20/15 Clopidogrel Bisulfate [Plavix] 75 mg PO DAILY 10/20/15 Pravastatin [Pravachol] 40 mg PO DAILY 10/20/15 Risperidone [Risperdal] 4 mg PO BID 10/20/15 Pantoprazole Sodium [Protonix] 40 mg PO DAILY 02/01/17 Tamsulosin HCl [Flomax] 0.4 mg PO QHS 02/01/17 Fluticasone/Salmeterol [Advair 1 puff INHALATION DAILY 05/25/17 250/50 Mcg Diskus] warfarin 5 mg tablet 10 mg PO QDAY #60 tab 01/21/18 bupropion HCl XL 150 mg 24 hr 150 mg PO QAM 09/12/18 tablet, extended release buspirone 10 mg tablet 15 mg PO TID 09/12/18 cetirizine 10 mg tablet 10 mg PO DAILY 09/12/18 fluoxetine 60 mg tablet 60 mg PO DAILY 09/12/18 naltrexone 50 mg tablet 50 mg PO DAILY 09/12/18 potassium chloride ER 10 mEq 10 meq PO DAILY 09/12/18 capsule,extended release acapella See Rx Instructions .ROUTE 09/16/18 .MEDSUPPLY #1 ea albuterol sulfate HFA 90 2 puff INHALATION Q4H #18 g 09/16/18 mcg/actuation aerosol inhaler metoprolol tartrate 25 mg tablet 12.5 mg PO BID #30 tab 09/17/18 Donepezil HCl 10 mg PO DAILY 10/03/18 Surgical History: Surgical History (Last Reviewed 09/16/18 @ 08:19 by ARMEN Cordero) History of coronary artery stent placement (Chronic) Z95.5 POBA-Anastomosis site of the MEDINA-LAD 06/16/2004 [facility] [id number]-RCA 03/2005 @ [facility] [id number]-UVH-[id number]-D1 07/15/2012 @ [facility] Presence of aortocoronary bypass graft (Chronic) Onset Date: ~01/2003 Z95.1 MEDINA-LAD, SVG-D1, SVG-OM1, SVG-PDA 01/2003 @ [facility] H/O aortic valve replacement (Chronic) Onset Date: ~09/2004 Z95.2 Mechanical, on Coumadin therapy 09/2004 [facility] @ [facility] Abdominal Aortagram Onset Date: ~08/18/13 [facility] by Dr Siegel History of appendectomy Z98.890, Z90.49 History of left heart catheterization Onset Date: ~10/22/15 Z98.890 History of lumbar spinal fusion Onset Date: ~06/29/14 Z98.1 History of repair of right rotator cuff Z98.890 Surgical History: angioplasty, appendectomy, cholecystectomy, coronary bypass surgery, tonsillectomy, - - mechanical aortic valve replacement Psychiatric History: Bipolar - Patient is not currently on any medications for bipolar illness Lives: Spouse/ Significant Other Smoking Status: Former smoker Alcohol: None Drugs: None - *Family History Maternal Family History: Family History (Last Reviewed 09/16/18 @ 08:19 by ARMEN Cordero) Father CAD (coronary artery disease) Mother CAD (coronary artery disease) Sister CAD (coronary artery disease) CVA (cerebral vascular accident) History Items: No pertinent history Paternal Family History: Family History (Last Reviewed 09/16/18 @ 08:19 by ARMEN Cordero) Father CAD (coronary artery disease) Mother CAD (coronary artery disease) Sister CAD (coronary artery disease) CVA (cerebral vascular accident) History Items: Heart Disease, - - myocardial infarction Sibling Family History: Family History (Last Reviewed 09/16/18 @ 08:19 by ARMEN Cordero) Father CAD (coronary artery disease) Mother CAD (coronary artery disease) Sister CAD (coronary artery disease) CVA (cerebral vascular accident) History Items: No pertinent history Review of Systems Constitutional: Denies: Anorexia, Chills, Fever, Weakness Eyes: Denies: Blurred vision, Double vision, Drainage, Redness HEENT: Denies: Difficulty Hearing, Ear Pain, Eye Pain, Nasal Congestion, Sore Throat Cardiovascular: Reports: Chest Pain, Light Headedness. Denies: Chest Pressure, Chest Tightness, Edema, Orthopnea, Palpitations, Paroxysmal Noc. Dyspnea, Syncope Respiratory: Reports: Cough, Shortness of Breath. Denies: Sputum production, Wheezing Gastrointestinal: Reports: Nausea. Denies: Abdominal Pain, Constipation, Diarrhea, Vomiting Genitourinary: Denies: Dysuria, Frequency, Hematuria Musculoskeletal: Denies: Arm Pain, Back Pain, Foot Pain Skin: Denies: Dryness, Rash Neurological: Denies: Balance problems, Double vision, Change in Speech, Slurred speech, Headaches, Incoordination, Numbness Psychiatric: Reports: Depression. Denies: Anxiety Endocrine: Denies: Change in Body Habitus, Polydipsia VTE Information - Inpt Only VTE Present on Admission: No VTE Mechan Device Prophylaxis: None VTE Pharm Prophylaxis ordered?: No - Physical Exam General: Alert, Oriented x3, Cooperative, No apparent distress HEENT: Atraumatic, PERRLA, EOMI, Normocephalic Oral: Moist Mucosa, No Gingival or Mucosal Lesions/ Ulcerations Neck: Supple, No JVD, Negative Carotid Bruits, Trachea Midline, Thyroid Normal Size and Texture Lungs: No rales, Diminished, Rhonchi, Wheezes, - - Decreased breath sounds bilateral, bilateral expiratory wheezes, rhonchi. Cardiovascular: Regular rate, Regular Rhythm, Normal S1, Normal S2, - - Metallic click. Abdomen: Bowel Sounds Present, Soft, Non Tender, Non-Distended, No Hepato-splenomegaly, Obese Extremities: No clubbing, No cyanosis, No edema Skin: No rashes, No breakdown Lymphatic: No Cervical, Supraclavicular, or Inguinal Adenopathy Neurological: Cranial nerves II-XII grossly intact, Motor Exam 5/5 strength throughout Psych/Mental Status: Normal Affect, Appropriate, Alert and oriented to time, place, person, mood and affect Vital Signs Temp Pulse Resp BP Pulse Ox 97.5 F L 73 19 H 147/92 H 97 10/03/18 19:50 10/03/18 20:25 10/03/18 20:25 10/03/18 19:50 10/03/18 20:19 Oxygen Delivery Method Room Air Weight: 280 lb Body Mass Index (BMI) 35.9 Laboratory Tests Past 24 Hrs 10/03/18 10/03/18 10/03/18 20:07 20:07 20:07 WBC 6.5 RBC 4.38 L Hgb 14.1 Hct 42.4 MCV 96.8 H MCH 32.2 H MCHC 33.3 RDW 13.3 RDW Differential 47.6 H Plt Count 182 MPV 8.5 Immature Gran % (Auto) 0.300 Neut % (Auto) 65.9 Lymph % (Auto) 20.6 [place] % (Auto) 10.1 H Eos % (Auto) 2.8 Baso % (Auto) 0.3 Absolute Neuts (auto) 4.3 Absolute Lymphs (auto) 1.34 Total Counted Not Reportable PT 34.8 H INR 3.4 Sodium 140 Potassium 4.0 Chloride 106 Carbon Dioxide 28.0 Anion Gap 6 BUN 11 Creatinine 1.04 Estim Creat Clear Calc 86.72 Est GFR (MDRD) Af Amer 93 Est GFR (MDRD) Non-Af 77 BUN/Creatinine Ratio 10.6 Glucose 105 Calcium 8.2 L Troponin I < 0.015 Assessment/Plan This is a 62 years old male patient presented to the ED because of chest pain and he is being admitted for evaluation. #1 chest pain: Patient description of the pain seemed to be typical with radiation to the left arm, associated with shortness of breath, nausea and dizziness. EKG revealed normal sinus rhythm, LBBB which is not evident on EKG from October 15, 2016. Chest x-ray showed no acute findings. Troponin is negative. Plan: Admit to PCU for observation, cardiac monitoring, serial cardiac enzymes, repeat EKG tomorrow morning, nitroglycerin as needed, IV morphine as needed, Tylenol and Zofran as needed, nuclear stress test tomorrow morning if cardiac enzymes are negative, PT OT evaluation and treatment. #2 CAD status post CABG and stents: EKG reviewed as above. Troponin is negative. Plan as above, continue Plavix, metoprolol, statins and Coumadin. #3 status post aortic valve replacement with mechanical valve: On Coumadin, INR is therapeutic. Plan to continue Coumadin, repeat INR tomorrow morning. #4 COPD: Chest x-ray reviewed as above, plan for DuoNeb every 6 hours, albuterol as needed, incentive spirometer. #5 hypertension: Blood pressure stable, continue metoprolol. #6 depression: Continue risperidone and aspirin. #7 obstructive sleep apnea: Noncompliant with CPAP. #8 DVT prophylaxis: On Coumadin, INR is 3.4. This note was generated with Dragon dictation software. It may contain incorrect words, spelling, and punctuation that were not noted in checking the note before signing. Code Visit Inpatient E&M: 78500 Init Hosp L3
--- NOTE | 2018-10-03 21:38 | EKG12_ITS ---
Test Reason : CP ADMIT Blood Pressure : / mmHG Vent. Rate : 068 BPM Atrial Rate : 068 BPM P-R Int : 228 ms QRS Dur : 174 ms QT Int : 494 ms P-R-T Axes : 049 010 124 degrees QTc Int : 525 ms Sinus rhythm with 1st degree A-V block Left bundle branch block Abnormal ECG When compared with ECG of 03-OCT-2018 19:50, MANUAL COMPARISON REQUIRED, DATA IS UNCONFIRMED Confirmed by JENNI MCLAIN, BERONICA ([id number]), telegraph editor RICCI OMNTGOMERY ([id number]) on 10/08/2018 9:00:36 AM Referred By: Brandy Larkin Confirmed By:BERONICA ARTEAGA MD
[2018-10-03 21:50] VITALS: PULSE 73
[2018-10-03 21:54] VITALS: BP 142/68; PULSE 72; RESP 18; TEMP 36.8; O2SAT 96; BMI 34.3
[2018-10-03 23:29] VITALS: PULSE 78
[2018-10-04] VITALS (8 sets, daily range): BP systolic 129–145; BP diastolic 70–82; PULSE 62–72; RESP 14–18; TEMP 36.4–36.8; O2SAT 95–98; BMI 34.3
[2018-10-04] MEDS: busPIRone 15 MG TABLET PO ×2 (00:08→06:03)
[2018-10-04] MEDS: Metoprolol Tartrate 25 MG Tablet 12.5 MG PO ×2 (00:08→08:46)
[2018-10-04] MEDS: Pravastatin 40 MG Tablet PO (00:08)
[2018-10-04] MEDS: Tamsulosin HCl 0.4 MG Capsule PO (00:08)
[2018-10-04] MEDS: Morphine 2 MG/ML Syringe IV ×3 (00:15→10:05)
[2018-10-04] MEDS: 0.9% NaCl Peripheral Flush Adult/Peds IV ×3 (00:15→10:06)
[2018-10-04] MEDS: Ipratropium/Albuterol Sulfate 3 ML AMPUL.NEB INHALATION (01:05)
[2018-10-04 02:36] LABS: Absolute Neutrophil Count 4.4 X10^3/uL (2.0-7.7); Basophil# 0.03 X10^3/uL; Basophil% 0.4 % (0-1); Eosinophil# 0.27 X10^3/uL; Eosinophils% 3.8 % (0-5); Hemoglobin 13.7 g/dl (13.0-16.5); Lymphocyte % 22.7 % (19-41); Mean Corp Hgb Conc 33.4 g/gl (32-36); Mean Corpuscular Hgb 32.6 pg (27.0-32.0); Mean Corpuscular Volume 97.6 fL (80-94); Mean Platelet Vol. 8.9 fl (6.2-12.0); Monocyte# 0.69 X10^3/uL; Monocyte% 9.8 % (0-10); Neutrophil # 4.43 X10^3/uL (2.7-7.7); Neutrophil % 62.9 % (47-70); Platelet Count 210 K/mm3 (150-450); RBC Distribution Width CV 13.3 % (11.6-14.6); RBC Distribution Width SD 46.1 fl (35.1-43.9); White Blood Count 7.1 K/mm3 (4.4-11.0)
[2018-10-04 02:37] LABS: POSITIVE COUNT NO; POSITIVE DIFFERENTIAL NO; POSITIVE MORPHOLOGY NO
[2018-10-04 02:39] LABS: Prothrombin Time (Protime)PT. 35.3 SECONDS (11.7-14.9)
[2018-10-04 02:40] LABS: Partial Thromboplast Time 45.3 Seconds (24.1-36.2)
[2018-10-04 02:46] LABS: International Normalized Ratio 3.5
[2018-10-04 03:00] LABS: Anion Gap 8 (5-15); BUN 13 mg/dL (7-18); BUN/Creat Ratio 13.7 RATIO (10-20); Calcium,Total 8.3 mg/dL (8.5-10.1); Chloride 107 mmol/L (98-107); Creatinine, Serum 0.95 mg/dL (0.70-1.30); EST Glomerular Filtration Rate 86 mL/min (>60); Est Glom Filt Rate - Afr Amer 104 mL/min (>60); Estimated Creatinine Clearance 94.94 ml/min; Glucose 92 mg/dL (74-106); Potassium 3.8 mmol/L (3.5-5.1); Sodium Level 142 mmol/L (136-145)
--- NOTE | 2018-10-04 05:55 | EKG12_ITS ---
Test Reason : AM EKB Blood Pressure : / mmHG Vent. Rate : 060 BPM Atrial Rate : 060 BPM P-R Int : 240 ms QRS Dur : 184 ms QT Int : 508 ms P-R-T Axes : 069 024 161 degrees QTc Int : 508 ms Sinus rhythm with 1st degree A-V block Left bundle branch block Abnormal ECG When compared with ECG of 03-OCT-2018 21:57, MANUAL COMPARISON REQUIRED, DATA IS UNCONFIRMED Confirmed by JENNI MCLAIN, BERONICA ([id number]), brands editor RICCI MONTGOMERY ([id number]) on 10/08/2018 8:59:34 AM Referred By: Brandy Larkin Confirmed By:BERONICA ARTEAGA MD
[2018-10-04] MEDS: Clopidogrel Bisulfate 75 MG Tablet PO (06:03)
[2018-10-04] MEDS: Pantoprazole Sodium 40 MG Tablet PO (06:03)
[2018-10-04] MEDS: Acetaminophen 325 MG Tablet 650 MG PO (08:45)
[2018-10-04] MEDS: Donepezil HCl 10 MG Tablet PO (08:45)
[2018-10-04] MEDS: FLUoxetine 20 MG Capsule 60 MG PO (08:46)
[2018-10-04] MEDS: RisperiDONE 2 MG Tablet 4 MG PO (08:47)
[2018-10-04] MEDS: buPROPion (XL) 150 MG TABLET.XL PO (08:47)
--- NOTE | 2018-10-04 10:14 | PCM.DC ---
You will use the following diet at home:: Cardiac Discharge Activity: Return to Normal Activity Call your doctor if you observe: Shortness of breath, Dizziness, Fainting spells, Chest pain Additional Instructions: Your INR at discharge was 3.5. You will need to hold your coumadin 10/04/18 and 10/05/18. Repeat INR 10/07/18 and follow up with Dr. Uriostegui for results/further recommendations. Allergies/Adverse Reactions: Allergies iodine Allergy (Verified 10/03/18 19:49) Other low BP- does fine with premedication contrast dye Allergy (Uncoded 10/03/18 19:49) Shortness of breath Medications to take at Discharge Benztropine [Cogentin] 0.5 mg PO BID 10/20/15 Clopidogrel Bisulfate [Plavix] 75 mg PO DAILY 10/20/15 Pravastatin [Pravachol] 40 mg PO DAILY 10/20/15 Risperidone [Risperdal] 4 mg PO BID 10/20/15 Pantoprazole Sodium [Protonix] 40 mg PO DAILY 02/01/17 Tamsulosin HCl [Flomax] 0.4 mg PO QHS 02/01/17 Fluticasone/Salmeterol [Advair 250/50 Mcg Diskus] 1 puff INHALATION DAILY 05/25/17 warfarin 5 mg tablet 10 mg PO QDAY #60 tab 01/21/18 bupropion HCl XL 150 mg 24 hr tablet, extended release 150 mg PO QAM 09/12/18 buspirone 10 mg tablet 15 mg PO TID 09/12/18 cetirizine 10 mg tablet 10 mg PO DAILY 09/12/18 fluoxetine 60 mg tablet 60 mg PO DAILY 09/12/18 naltrexone 50 mg tablet 50 mg PO DAILY 09/12/18 potassium chloride ER 10 mEq capsule,extended release 10 meq PO DAILY 09/12/18 acapella See Rx Instructions .ROUTE .MEDSUPPLY #1 ea 09/16/18 metoprolol tartrate 25 mg tablet 12.5 mg PO BID #30 tab 09/17/18 Albuterol Sulfate [Ventolin Hfa] 2 puff INHALATION Q4H 10/03/18 Donepezil HCl 10 mg PO DAILY 10/03/18 Orders to be completed after discharge: Prothrombin Time w/INR Time Frame: 3 Days, Location: Laboratory Primary Care Physician: Bartolo Mitchell DO [Primary Care Provider] - Please follow up with your Primary Care Physician in: 1 Week Test Results: Test results from this visit will be discussed in further detail at your follow-up appointment, if applicable. Please Follow Up With: Darrel Uriostegui MD - May see ALUMINA REFINERY OPERATOR/PA When: 1-2 Weeks Proposed Discharge Date: 10/04/18
--- NOTE | 2018-10-04 10:20 | DCINST_ITS ---
You will use the following diet at home:: Cardiac Discharge Activity: Return to Normal Activity Call your doctor if you observe: Shortness of breath, Dizziness, Fainting spells, Chest pain Additional Instructions: Your INR at discharge was 3.5. You will need to hold your coumadin 10/04/18 and 10/05/18. Repeat INR 10/07/18 and follow up with Dr. Uriostegui for results/further recommendations. Allergies/Adverse Reactions: Allergies iodine Allergy (Verified 10/03/18 19:49) Other low BP- does fine with premedication contrast dye Allergy (Uncoded 10/03/18 19:49) Shortness of breath Medications to take at Discharge Benztropine [Cogentin] 0.5 mg PO BID 10/20/15 Clopidogrel Bisulfate [Plavix] 75 mg PO DAILY 10/20/15 Pravastatin [Pravachol] 40 mg PO DAILY 10/20/15 Risperidone [Risperdal] 4 mg PO BID 10/20/15 Pantoprazole Sodium [Protonix] 40 mg PO DAILY 02/01/17 Tamsulosin HCl [Flomax] 0.4 mg PO QHS 02/01/17 Fluticasone/Salmeterol [Advair 250/50 Mcg Diskus] 1 puff INHALATION DAILY 05/25/17 warfarin 5 mg tablet 10 mg PO QDAY #60 tab 01/21/18 bupropion HCl XL 150 mg 24 hr tablet, extended release 150 mg PO QAM 09/12/18 buspirone 10 mg tablet 15 mg PO TID 09/12/18 cetirizine 10 mg tablet 10 mg PO DAILY 09/12/18 fluoxetine 60 mg tablet 60 mg PO DAILY 09/12/18 naltrexone 50 mg tablet 50 mg PO DAILY 09/12/18 potassium chloride ER 10 mEq capsule,extended release 10 meq PO DAILY 09/12/18 acapella See Rx Instructions .ROUTE .MEDSUPPLY #1 ea 09/16/18 metoprolol tartrate 25 mg tablet 12.5 mg PO BID #30 tab 09/17/18 Albuterol Sulfate [Ventolin Hfa] 2 puff INHALATION Q4H 10/03/18 Donepezil HCl 10 mg PO DAILY 10/03/18 Orders to be completed after discharge: Prothrombin Time w/INR Time Frame: 3 Days, Location: Laboratory Primary Care Physician: Bartolo Mitchell DO [Primary Care Provider] - Please follow up with your Primary Care Physician in: 1 Week Test Results: Test results from this visit will be discussed in further detail at your follow- up appointment, if applicable. Please Follow Up With: Darrel Uriostegui MD - May see PLATFORM MATERIAL HANDLING SUPERVISOR/PA When: 1-2 Weeks Proposed Discharge Date: 10/04/18
--- NOTE | 2018-10-04 10:25 | PCM.DC.SUM ---
<Nettie Pizarro - Last Filed: 10/04/18 10:34> Discharge Date and Diagnosis Date of Admission: 10/03/18 Date of Discharge: 10/04/18 - Primary Discharge Diagnosis 1. Atypical chest pain, ACS ruled out 2. CAD status post CABG/stents 3. Status post aortic valve replacement with mechanical aortic valve 4. Supratherapeutic INR 5. Chronic COPD 6. Depression 7. Hypertension 8. JAMES 9. BPH - Secondary Discharge Diagnosis Chronic Problems (Last Reviewed 09/16/18 @ 08:19 by Lilliam Denney NP-Lesly) Stage 1 mild COPD by GOLD classification (Chronic) Lung nodule (Chronic) Repeat CT of the chest due September 12, 2019 JAMES (obstructive sleep apnea) (Chronic) AHI 16.7 - noncompliant [facility] (current) use of anticoagulants (Chronic) Nonrheumatic aortic (valve) stenosis with insufficiency (Chronic) Atherosclerosis of coronary artery of inupiat heart without angina pectoris (Chronic) CABG MEDINA-LAD, SVG-D1, SVG-OM1, SVG-PDA 01/2003 POBA-Anastomosis site of the MEDINA-LAD 06/16/2004 [facility] [id number] 03/2005 [id number] 07/15/2012 @ [facility] History of coronary artery stent placement (Chronic) POBA-Anastomosis site of the MEDINA-LAD 06/16/2004 [facility] [id number] 03/2005 @ [facility] [id number] 07/15/2012 @ [facility] Non-ST elevation (NSTEMI) myocardial infarction (Chronic) Presence of aortocoronary bypass graft (Chronic ~01/2003) MEDINA-LAD, SVG-D1, SVG-OM1, SVG-PDA 01/2003 @ [facility] H/O aortic valve replacement (Chronic ~09/2004) Mechanical, on Coumadin therapy 09/2004 [facility] @ [facility] Hypertension (Chronic) Hospital Course and Treatment Imaging Results: Diagnostic Data Chest X-Ray 10/03/18 20:07 IMPRESSION: Normal x-ray examination of the chest. Electronically Signed: Zoe Rivera MD at 21:10 EST Tel , Service support , Operations: None Procedures: Stress test Summary of Care Provided: The patient is a 62 year old M admitted 10/03/2018 due to chest pain. 1. Atypical chest pain, ACS ruled out-troponin negative. Chest x-ray without acute process. Patient underwent nuclear stress test which was negative for ischemia. Patient follows with Dr. Uriostegui. Follow-up with cardiology in 1-2 weeks. 2. CAD status post CABG/stents-continue Plavix, statin, Coumadin, beta-jd. 3. Status post aortic valve replacement with mechanical aortic valve 4. Supratherapeutic INR-INR 3.5 at discharge. Patient will hold Coumadin 10/04/18 and 10/05/18. Repeat INR 10/07/18 which will be followed by PCP/Cardiology. 5. Chronic COPD-no acute exacerbation. Chest x-ray on admission without acute process. 6. Depression/anxiety-continue home bupropion/buspirone/fluoxetine. 7. Hypertension-stable, continue home metoprolol regimen. 8. JAMES-history of noncompliance with CPAP. 9. BPH-on Flomax. General: Alert, Oriented x3, Cooperative, No apparent distress HEENT: Atraumatic, PERRLA, EOMI, Normocephalic Oral: Moist Mucosa, No Gingival or Mucosal Lesions/ Ulcerations Neck: Supple, No JVD, Negative Carotid Bruits, Trachea Midline, Thyroid Normal Size and Texture Lungs: Clear to auscultation, Diminished Cardiovascular: Regular rate, Regular Rhythm, Normal S1, Normal S2, murmur/click. Abdomen: Bowel Sounds Present, Soft, Non Tender, Non-Distended, No Hepato-splenomegaly, Obese Extremities: No clubbing, No cyanosis, No edema Skin: No rashes, No breakdown Lymphatic: No Cervical, Supraclavicular, or Inguinal Adenopathy Neurological: Cranial nerves II-XII grossly intact, Motor Exam 5/5 strength throughout Psych/Mental Status: Normal Affect, Appropriate Patient seen and examined prior to discharge. Physical assessment as noted above. Patient is stable for discharge with follow up recommendations as noted above. This patient was seen by ARMEN Elizabeth under the supervision of Dr. Savage. - Physical Exam Vital Signs Temp Pulse Resp BP Pulse Ox 98.3 F 72 14 141/82 H 97 10/04/18 08:48 10/04/18 08:48 10/04/18 08:48 10/04/18 08:48 10/04/18 08:48 Oxygen Delivery Method Room Air Weight: 267 lb 6.731 oz Body Mass Index (BMI) 34.3 Intake and Output for Last 24 Hours 10/02/18 10/03/18 10/04/18 23:59 23:59 23:59 Intake Total 325 / 325 Balance 325 / 325 Laboratory Tests Past 24 Hrs 10/03/18 10/03/18 10/03/18 20:07 20:07 20:07 WBC 6.5 RBC 4.38 L Hgb 14.1 Hct 42.4 MCV 96.8 H MCH 32.2 H MCHC 33.3 RDW 13.3 RDW Differential 47.6 H Plt Count 182 MPV 8.5 Immature Gran % (Auto) 0.300 Neut % (Auto) 65.9 Lymph % (Auto) 20.6 [place] % (Auto) 10.1 H Eos % (Auto) 2.8 Baso % (Auto) 0.3 Absolute Neuts (auto) 4.3 Absolute Lymphs (auto) 1.34 Total Counted Not Reportable PT 34.8 H INR 3.4 APTT Sodium 140 Potassium 4.0 Chloride 106 Carbon Dioxide 28.0 Anion Gap 6 BUN 11 Creatinine 1.04 Estim Creat Clear Calc 86.72 Est GFR (MDRD) Af Amer 93 Est GFR (MDRD) Non-Af 77 BUN/Creatinine Ratio 10.6 Glucose 105 Calcium 8.2 L Troponin I < 0.015 10/03/18 10/04/18 10/04/18 23:20 02:16 02:16 WBC 7.1 RBC 4.20 L Hgb 13.7 Hct 41.0 MCV 97.6 H MCH 32.6 H MCHC 33.4 RDW 13.3 RDW Differential 46.1 H Plt Count 210 MPV 8.9 Immature Gran % (Auto) 0.400 Neut % (Auto) 62.9 Lymph % (Auto) 22.7 [place] % (Auto) 9.8 Eos % (Auto) 3.8 Baso % (Auto) 0.4 Absolute Neuts (auto) 4.4 Absolute Lymphs (auto) 1.60 Total Counted Not Reportable PT INR APTT Sodium 142 Potassium 3.8 Chloride 107 Carbon Dioxide 27.0 Anion Gap 8 BUN 13 Creatinine 0.95 Estim Creat Clear Calc 94.94 Est GFR (MDRD) Af Amer 104 Est GFR (MDRD) Non-Af 86 BUN/Creatinine Ratio 13.7 Glucose 92 Calcium 8.3 L Troponin I < 0.015 < 0.015 10/04/18 02:16 WBC RBC Hgb Hct MCV MCH MCHC RDW RDW Differential Plt Count MPV Immature Gran % (Auto) Neut % (Auto) Lymph % (Auto) [place] % (Auto) Eos % (Auto) Baso % (Auto) Absolute Neuts (auto) Absolute Lymphs (auto) Total Counted PT 35.3 H INR 3.5 H* APTT 45.3 H Sodium Potassium Chloride Carbon Dioxide Anion Gap BUN Creatinine Estim Creat Clear Calc Est GFR (MDRD) Af Amer Est GFR (MDRD) Non-Af BUN/Creatinine Ratio Glucose Calcium Troponin I Discharge Diet: Low fat/ Low Cholesterol Discharge Activity: Return to Normal Activity Call your doctor if you observe: Shortness of breath, Dizziness, Fainting spells, Chest pain Home Medications: Medications to take at Discharge Benztropine [Cogentin] 0.5 mg PO BID 10/20/15 Clopidogrel Bisulfate [Plavix] 75 mg PO DAILY 10/20/15 Pravastatin [Pravachol] 40 mg PO DAILY 10/20/15 Risperidone [Risperdal] 4 mg PO BID 10/20/15 Pantoprazole Sodium [Protonix] 40 mg PO DAILY 02/01/17 Tamsulosin HCl [Flomax] 0.4 mg PO QHS 02/01/17 Fluticasone/Salmeterol [Advair 250/50 Mcg Diskus] 1 puff INHALATION DAILY 05/25/17 warfarin 5 mg tablet 10 mg PO QDAY #60 tab 01/21/18 bupropion HCl XL 150 mg 24 hr tablet, extended release 150 mg PO QAM 09/12/18 buspirone 10 mg tablet 15 mg PO TID 09/12/18 cetirizine 10 mg tablet 10 mg PO DAILY 09/12/18 fluoxetine 60 mg tablet 60 mg PO DAILY 09/12/18 naltrexone 50 mg tablet 50 mg PO DAILY 09/12/18 potassium chloride ER 10 mEq capsule,extended release 10 meq PO DAILY 09/12/18 acapella See Rx Instructions .ROUTE .MEDSUPPLY #1 ea 09/16/18 metoprolol tartrate 25 mg tablet 12.5 mg PO BID #30 tab 09/17/18 Albuterol Sulfate [Ventolin Hfa] 2 puff INHALATION Q4H 10/03/18 Donepezil HCl 10 mg PO DAILY 10/03/18 Other Amb Orders: Prothrombin Time w/INR Time Frame: 3 Days, Location: Laboratory Primary Care Physician: Bartolo Mitchell DO [Primary Care Provider] - Please follow up with your Primary Care Physician in: 1 Week Please Follow Up With: Darrel Uriostegui MD - May see PHARMACIST/PA When: 1-2 Weeks Disposition: Home Minutes spent on discharge:: 35 Patient Condition:: Stable Medical Necessity - Tobacco Use Smoking Status: Former smoker Meaningful Use Info Meaningful Use Diagnoses (Choose all that apply): None applicable <Fady Savage - Last Filed: 10/04/18 12:56> Discharge Date and Diagnosis - Secondary Discharge Diagnosis Chronic Problems (Last Reviewed 09/16/18 @ 08:19 by Lilliam Denney NP-C) Stage 1 mild COPD by GOLD classification (Chronic) Lung nodule (Chronic) Repeat CT of the chest due September 12, 2019 JAMES (obstructive sleep apnea) (Chronic) AHI 16.7 - noncompliant [employer] (current) use of anticoagulants (Chronic) Nonrheumatic aortic (valve) stenosis with insufficiency (Chronic) Atherosclerosis of coronary artery of in[place] heart without angina pectoris (Chronic) CABG MEDINA-LAD, SVG-D1, SVG-OM1, SVG-PDA 01/2003 POBA-Anastomosis site of the MEDINA-LAD 06/16/2004 [facility] [id number] 03/2005 [id number] 07/15/2012 @ [facility] History of coronary artery stent placement (Chronic) POBA-Anastomosis site of the MEDINA-LAD 06/16/2004 [facility] [id number] 03/2005 @ [facility] [id number] 07/15/2012 @ [facility] Non-ST elevation (NSTEMI) myocardial infarction (Chronic) Presence of aortocoronary bypass graft (Chronic ~01/2003) MEDINA-LAD, SVG-D1, SVG-OM1, SVG-PDA 01/2003 @ [facility] H/O aortic valve replacement (Chronic ~09/2004) Mechanical, on Coumadin therapy 09/2004 [facility]ve @ [facility] Hypertension (Chronic) Hospital Course and Treatment Imaging Results: 10/04/18 05:55 Nuclear Stress Test - Chemical [NM] AM (NON MEDS) Summary of Care Provided: This patient was seen in conjunction with ARMEN Elizabeth . I have independently interviewed and examined the patient and reviewed pertinent historical, laboratory, and other data. Please refer to ARMEN Elizabeth note for details of this patient's presentation, findings, and recommendations. I have reviewed ARMEN Elizabeth note and concur with documented findings. In brief, patient is a 62-year-old gentleman with past medical history significant for CAD status post previous CABG and stent placement, stroke mechanical aortic valve on systemic anticoagulant with Coumadin who presented with chest pain. Patient was placed on a monitored bed IA was ruled out with serial cardiac enzymes. Patient underwent subsequent nuclear stress test which was negative for stress-induced ischemia Regarding patient mechanical valve patient was on Coumadin with a therapeutic INR again (2.5-3.5). Patient was instructed to follow-up with PCP for repeat INR on 10/07/2018. Hospital course: As documented above - Physical Exam Vital Signs Temp Pulse Resp BP Pulse Ox 98.3 F 72 14 141/82 H 97 10/04/18 08:48 10/04/18 08:48 10/04/18 08:48 10/04/18 08:48 10/04/18 08:48 Oxygen Delivery Method Room Air Weight: 121.3 kg Body Mass Index (BMI) 34.3 Intake and Output for Last 24 Hours 10/02/18 10/03/18 10/04/18 23:59 23:59 23:59 Intake Total 825 / 825 Balance 825 / 825 Laboratory Tests Past 24 Hrs 10/03/18 10/03/18 10/03/18 20:07 20:07 20:07 WBC 6.5 RBC 4.38 L Hgb 14.1 Hct 42.4 MCV 96.8 H MCH 32.2 H MCHC 33.3 RDW 13.3 RDW Differential 47.6 H Plt Count 182 MPV 8.5 Immature Gran % (Auto) 0.300 Neut % (Auto) 65.9 Lymph % (Auto) 20.6 [place] % (Auto) 10.1 H Eos % (Auto) 2.8 Baso % (Auto) 0.3 Absolute Neuts (auto) 4.3 Absolute Lymphs (auto) 1.34 Total Counted Not Reportable PT 34.8 H INR 3.4 APTT Sodium 140 Potassium 4.0 Chloride 106 Carbon Dioxide 28.0 Anion Gap 6 BUN 11 Creatinine 1.04 Estim Creat Clear Calc 86.72 Est GFR (MDRD) Af Amer 93 Est GFR (MDRD) Non-Af 77 BUN/Creatinine Ratio 10.6 Glucose 105 Calcium 8.2 L Troponin I < 0.015 10/03/18 10/04/18 10/04/18 23:20 02:16 02:16 WBC 7.1 RBC 4.20 L Hgb 13.7 Hct 41.0 MCV 97.6 H MCH 32.6 H MCHC 33.4 RDW 13.3 RDW Differential 46.1 H Plt Count 210 MPV 8.9 Immature Gran % (Auto) 0.400 Neut % (Auto) 62.9 Lymph % (Auto) 22.7 [place] % (Auto) 9.8 Eos % (Auto) 3.8 Baso % (Auto) 0.4 Absolute Neuts (auto) 4.4 Absolute Lymphs (auto) 1.60 Total Counted Not Reportable PT INR APTT Sodium 142 Potassium 3.8 Chloride 107 Carbon Dioxide 27.0 Anion Gap 8 BUN 13 Creatinine 0.95 Estim Creat Clear Calc 94.94 Est GFR (MDRD) Af Amer 104 Est GFR (MDRD) Non-Af 86 BUN/Creatinine Ratio 13.7 Glucose 92 Calcium 8.3 L Troponin I < 0.015 < 0.015 10/04/18 02:16 WBC RBC Hgb Hct MCV MCH MCHC RDW RDW Differential Plt Count MPV Immature Gran % (Auto) Neut % (Auto) Lymph % (Auto) [place] % (Auto) Eos % (Auto) Baso % (Auto) Absolute Neuts (auto) Absolute Lymphs (auto) Total Counted PT 35.3 H INR 3.5 H* APTT 45.3 H Sodium Potassium Chloride Carbon Dioxide Anion Gap BUN Creatinine Estim Creat Clear Calc Est GFR (MDRD) Af Amer Est GFR (MDRD) Non-Af BUN/Creatinine Ratio Glucose Calcium Troponin I Code Visit OBSV E&M: [id number] Observation care discharge
--- NOTE | 2018-10-04 10:33 | DS.PCM_ITS ---
<Nettie Pizarro - Last Filed: 10/04/18 10:34> Discharge Date and Diagnosis Date of Admission: 10/03/18 Date of Discharge: 10/04/18 - Primary Discharge Diagnosis 1. Atypical chest pain, ACS ruled out 2. CAD status post CABG/stents 3. Status post aortic valve replacement with mechanical aortic valve 4. Supratherapeutic INR 5. Chronic COPD 6. Depression 7. Hypertension 8. JAMES 9. BPH - Secondary Discharge Diagnosis Chronic Problems (Last Reviewed 09/16/18 @ 08:19 by Lilliam Denney NP-Lesly) Stage 1 mild COPD by GOLD classification (Chronic) Lung nodule (Chronic) Repeat CT of the chest due September 12, 2019 JAMES (obstructive sleep apnea) (Chronic) AHI 16.7 - noncompliant residential (current) use of anticoagulants (Chronic) Nonrheumatic aortic (valve) stenosis with insufficiency (Chronic) Atherosclerosis of coronary artery of [place] heart without angina pectoris (Chronic) CABG MEDINA-LAD, SVG-D1, SVG-OM1, SVG-PDA 01/2003 POBA-Anastomosis site of the MEDINA-LAD 06/16/2004 [facility] [id number] 03/2005 [id number] 07/15/2012 @ [facility] History of coronary artery stent placement (Chronic) POBA-Anastomosis site of the MEDINA-LAD 06/16/2004 [facility] [id number]-VVP-[id number]-RCA 03/2005 @ [facility] [id number] 07/15/2012 @ [facility] Non-ST elevation (NSTEMI) myocardial infarction (Chronic) Presence of aortocoronary bypass graft (Chronic ~01/2003) MEDINA-LAD, SVG-D1, SVG-OM1, SVG-PDA 01/2003 @ [facility] H/O aortic valve replacement (Chronic ~09/2004) Mechanical, on Coumadin therapy 09/2004 [facility] @ [facility] Hypertension (Chronic) Hospital Course and Treatment Imaging Results: Diagnostic Data Chest X-Ray 10/03/18 20:07 IMPRESSION: Normal x-ray examination of the chest. Electronically Signed: Zoe Rivera MD at 21:10 EST Tel , Service support , Operations: None Procedures: Stress test Summary of Care Provided: The patient is a 62 year old M admitted 10/03/2018 due to chest pain. 1. Atypical chest pain, ACS ruled out-troponin negative. Chest x-ray without acute process. Patient underwent nuclear stress test which was negative for ischemia. Patient follows with Dr. Uriostegui. Follow-up with cardiology in 1-2 weeks. 2. CAD status post CABG/stents-continue Plavix, statin, Coumadin, beta-jd. 3. Status post aortic valve replacement with mechanical aortic valve 4. Supratherapeutic INR-INR 3.5 at discharge. Patient will hold Coumadin 10/04/18 and 10/05/18. Repeat INR 10/07/18 which will be followed by PCP/Cardiology. 5. Chronic COPD-no acute exacerbation. Chest x-ray on admission without acute process. 6. Depression/anxiety-continue home bupropion/buspirone/fluoxetine. 7. Hypertension-stable, continue home metoprolol regimen. 8. JAMES-history of noncompliance with CPAP. 9. BPH-on Flomax. General: Alert, Oriented x3, Cooperative, No apparent distress HEENT: Atraumatic, PERRLA, EOMI, Normocephalic Oral: Moist Mucosa, No Gingival or Mucosal Lesions/ Ulcerations Neck: Supple, No JVD, Negative Carotid Bruits, Trachea Midline, Thyroid Normal Size and Texture Lungs: Clear to auscultation, Diminished Cardiovascular: Regular rate, Regular Rhythm, Normal S1, Normal S2, murmur/click. Abdomen: Bowel Sounds Present, Soft, Non Tender, Non-Distended, No Hepato-sp lenomegaly, Obese Extremities: No clubbing, No cyanosis, No edema Skin: No rashes, No breakdown Lymphatic: No Cervical, Supraclavicular, or Inguinal Adenopathy Neurological: Cranial nerves II-XII grossly intact, Motor Exam 5/5 strength throughout Psych/Mental Status: Normal Affect, Appropriate Patient seen and examined prior to discharge. Physical assessment as noted above. Patient is stable for discharge with follow up recommendations as noted above. This patient was seen by ARMEN Elizabeth under the supervision of Dr. Savage. - Physical Exam Vital Signs Temp Pulse Resp BP Pulse Ox 98.3 F 72 14 141/82 H 97 10/04/18 08:48 10/04/18 08:48 10/04/18 08:48 10/04/18 08:48 10/04/18 08:48 Oxygen Delivery Method Room Air Weight: 267 lb 6.731 oz Body Mass Index (BMI) 34.3 Intake and Output for Last 24 Hours 10/02/18 10/03/18 10/04/18 23:59 23:59 23:59 Intake Total 325 / 325 Balance 325 / 325 Laboratory Tests Past 24 Hrs 10/03/18 10/03/18 10/03/18 20:07 20:07 20:07 WBC 6.5 RBC 4.38 L Hgb 14.1 Hct 42.4 MCV 96.8 H MCH 32.2 H MCHC 33.3 RDW 13.3 RDW Differential 47.6 H Plt Count 182 MPV 8.5 Immature Gran % (Auto) 0.300 Neut % (Auto) 65.9 Lymph % (Auto) 20.6 [place] % (Auto) 10.1 H Eos % (Auto) 2.8 Baso % (Auto) 0.3 Absolute Neuts (auto) 4.3 Absolute Lymphs (auto) 1.34 Total Counted Not Reportable PT 34.8 H INR 3.4 APTT Sodium 140 Potassium 4.0 Chloride 106 Carbon Dioxide 28.0 Anion Gap 6 BUN 11 Creatinine 1.04 Estim Creat Clear Calc 86.72 Est GFR (MDRD) Af Amer 93 Est GFR (MDRD) Non-Af 77 BUN/Creatinine Ratio 10.6 Glucose 105 Calcium 8.2 L Troponin I < 0.015 10/03/18 10/04/18 10/04/18 23:20 02:16 02:16 WBC 7.1 RBC 4.20 L Hgb 13.7 Hct 41.0 MCV 97.6 H MCH 32.6 H MCHC 33.4 RDW 13.3 RDW Differential 46.1 H Plt Count 210 MPV 8.9 Immature Gran % (Auto) 0.400 Neut % (Auto) 62.9 Lymph % (Auto) 22.7 [place] % (Auto) 9.8 Eos % (Auto) 3.8 Baso % (Auto) 0.4 Absolute Neuts (auto) 4.4 Absolute Lymphs (auto) 1.60 Total Counted Not Reportable PT INR APTT Sodium 142 Potassium 3.8 Chloride 107 Carbon Dioxide 27.0 Anion Gap 8 BUN 13 Creatinine 0.95 Estim Creat Clear Calc 94.94 Est GFR (MDRD) Af Amer 104 Est GFR (MDRD) Non-Af 86 BUN/Creatinine Ratio 13.7 Glucose 92 Calcium 8.3 L Troponin I < 0.015 < 0.015 10/04/18 02:16 WBC RBC Hgb Hct MCV MCH MCHC RDW RDW Differential Plt Count MPV Immature Gran % (Auto) Neut % (Auto) Lymph % (Auto) [place] % (Auto) Eos % (Auto) Baso % (Auto) Absolute Neuts (auto) Absolute Lymphs (auto) Total Counted PT 35.3 H INR 3.5 H* APTT 45.3 H Sodium Potassium Chloride Carbon Dioxide Anion Gap BUN Creatinine Estim Creat Clear Calc Est GFR (MDRD) Af Amer Est GFR (MDRD) Non-Af BUN/Creatinine Ratio Glucose Calcium Troponin I Discharge Diet: Low fat/ Low Cholesterol Discharge Activity: Return to Normal Activity Call your doctor if you observe: Shortness of breath, Dizziness, Fainting spells, Chest pain Home Medications: Medications to take at Discharge Benztropine [Cogentin] 0.5 mg PO BID 10/20/15 Clopidogrel Bisulfate [Plavix] 75 mg PO DAILY 10/20/15 Pravastatin [Pravachol] 40 mg PO DAILY 10/20/15 Risperidone [Risperdal] 4 mg PO BID 10/20/15 Pantoprazole Sodium [Protonix] 40 mg PO DAILY 02/01/17 Tamsulosin HCl [Flomax] 0.4 mg PO QHS 02/01/17 Fluticasone/Salmeterol [Advair 250/50 Mcg Diskus] 1 puff INHALATION DAILY 05/25/17 warfarin 5 mg tablet 10 mg PO QDAY #60 tab 01/21/18 bupropion HCl XL 150 mg 24 hr tablet, extended release 150 mg PO QAM 09/12/18 buspirone 10 mg tablet 15 mg PO TID 09/12/18 cetirizine 10 mg tablet 10 mg PO DAILY 09/12/18 fluoxetine 60 mg tablet 60 mg PO DAILY 09/12/18 naltrexone 50 mg tablet 50 mg PO DAILY 09/12/18 potassium chloride ER 10 mEq capsule,extended release 10 meq PO DAILY 09/12/18 ac[place] See Rx Instructions .ROUTE .MEDSUPPLY #1 ea 09/16/18 metoprolol tartrate 25 mg tablet 12.5 mg PO BID #30 tab 09/17/18 Albuterol Sulfate [Ventolin Hfa] 2 puff INHALATION Q4H 10/03/18 Donepezil HCl 10 mg PO DAILY 10/03/18 Other Amb Orders: Prothrombin Time w/INR Time Frame: 3 Days, Location: Laboratory Primary Care Physician: Bartolo Mitchell DO [Primary Care Provider] - Please follow up with your Primary Care Physician in: 1 Week Please Follow Up With: Darrel Uriostegui MD - May see CLIENT RELATIONSHIP CONSULTANT/PA When: 1-2 Weeks Disposition: Home Minutes spent on discharge:: 35 Patient Condition:: Stable Medical Necessity - Tobacco Use Smoking Status: Former smoker Meaningful Use Info Meaningful Use Diagnoses (Choose all that apply): None applicable <Fady Savage - Last Filed: 10/04/18 12:56> Discharge Date and Diagnosis - Secondary Discharge Diagnosis Chronic Problems (Last Reviewed 09/16/18 @ 08:19 by Lilliam Denney NP-C) Stage 1 mild COPD by GOLD classification (Chronic) Lung nodule (Chronic) Repeat CT of the chest due September 12, 2019 JAMES (obstructive sleep apnea) (Chronic) AHI 16.7 - noncompliant residential (current) use of anticoagulants (Chronic) Nonrheumatic aortic (valve) stenosis with insufficiency (Chronic) Atherosclerosis of coronary artery of [place] heart without angina pectoris (Chronic) CABG MEDINA-LAD, SVG-D1, SVG-OM1, SVG-PDA 01/2003 POBA-Anastomosis site of the MEDINA-LAD 06/16/2004 [facility] [id number] 03/2005 [id number]-D1 07/15/2012 @ [facility] History of coronary artery stent placement (Chronic) POBA-Anastomosis site of the MEDINA-LAD 06/16/2004 [facility] [id number] 03/2005 @ [facility] [id number] 07/15/2012 @ [facility] Non-ST elevation (NSTEMI) myocardial infarction (Chronic) Presence of aortocoronary bypass graft (Chronic ~01/2003) MEDINA-LAD, SVG-D1, SVG-OM1, SVG-PDA 01/2003 @ [facility] H/O aortic valve replacement (Chronic ~09/2004) Mechanical, on Coumadin therapy 09/2004 [facility] @ [facility] Hypertension (Chronic) Hospital Course and Treatment Imaging Results: 10/04/18 05:55 Nuclear Stress Test - Chemical [NM] AM (NON MEDS) Summary of Care Provided: This patient was seen in conjunction with ARMEN Elizabeth . I have independently interviewed and examined the patient and reviewed pertinent historical, laboratory, and other data. Please refer to ARMEN Elizabeth note for details of this patient's presentation, findings, and recommendations. I have reviewed ARMEN Elizabeth note and concur with documented findings. In brief, patient is a 62-year-old gentleman with past medical history significant for CAD status post previous CABG and stent placement, stroke mechanical aortic valve on systemic anticoagulant with Coumadin who presented with chest pain. Patient was placed on a monitored bed NV was ruled out with serial cardiac enzymes. Patient underwent subsequent nuclear stress test which was negative for stress-induced ischemia Regarding patient mechanical valve patient was on Coumadin with a therapeutic INR again (2.5-3.5). Patient was instructed to follow-up with PCP for repeat INR on 10/07/2018. Hospital course: As documented above - Physical Exam Vital Signs Temp Pulse Resp BP Pulse Ox 98.3 F 72 14 141/82 H 97 10/04/18 08:48 10/04/18 08:48 10/04/18 08:48 10/04/18 08:48 10/04/18 08:48 Oxygen Delivery Method Room Air Weight: 121.3 kg Body Mass Index (BMI) 34.3 Intake and Output for Last 24 Hours 10/02/18 10/03/18 10/04/18 23:59 23:59 23:59 Intake Total 825 / 825 Balance 825 / 825 Laboratory Tests Past 24 Hrs 10/03/18 10/03/18 10/03/18 20:07 20:07 20:07 WBC 6.5 RBC 4.38 L Hgb 14.1 Hct 42.4 MCV 96.8 H MCH 32.2 H MCHC 33.3 RDW 13.3 RDW Differential 47.6 H Plt Count 182 MPV 8.5 Immature Gran % (Auto) 0.300 Neut % (Auto) 65.9 Lymph % (Auto) 20.6 [place] % (Auto) 10.1 H Eos % (Auto) 2.8 Baso % (Auto) 0.3 Absolute Neuts (auto) 4.3 Absolute Lymphs (auto) 1.34 Total Counted Not Reportable PT 34.8 H INR 3.4 APTT Sodium 140 Potassium 4.0 Chloride 106 Carbon Dioxide 28.0 Anion Gap 6 BUN 11 Creatinine 1.04 Estim Creat Clear Calc 86.72 Est GFR (MDRD) Af Amer 93 Est GFR (MDRD) Non-Af 77 BUN/Creatinine Ratio 10.6 Glucose 105 Calcium 8.2 L Troponin I < 0.015 10/03/18 10/04/18 10/04/18 23:20 02:16 02:16 WBC 7.1 RBC 4.20 L Hgb 13.7 Hct 41.0 MCV 97.6 H MCH 32.6 H MCHC 33.4 RDW 13.3 RDW Differential 46.1 H Plt Count 210 MPV 8.9 Immature Gran % (Auto) 0.400 Neut % (Auto) 62.9 Lymph % (Auto) 22.7 [place] % (Auto) 9.8 Eos % (Auto) 3.8 Baso % (Auto) 0.4 Absolute Neuts (auto) 4.4 Absolute Lymphs (auto) 1.60 Total Counted Not Reportable PT INR APTT Sodium 142 Potassium 3.8 Chloride 107 Carbon Dioxide 27.0 Anion Gap 8 BUN 13 Creatinine 0.95 Estim Creat Clear Calc 94.94 Est GFR (MDRD) Af Amer 104 Est GFR (MDRD) Non-Af 86 BUN/Creatinine Ratio 13.7 Glucose 92 Calcium 8.3 L Troponin I < 0.015 < 0.015 10/04/18 02:16 WBC RBC Hgb Hct MCV MCH MCHC RDW RDW Differential Plt Count MPV Immature Gran % (Auto) Neut % (Auto) Lymph % (Auto) [place] % (Auto) Eos % (Auto) Baso % (Auto) Absolute Neuts (auto) Absolute Lymphs (auto) Total Counted PT 35.3 H INR 3.5 H* APTT 45.3 H Sodium Potassium Chloride Carbon Dioxide Anion Gap BUN Creatinine Estim Creat Clear Calc Est GFR (MDRD) Af Amer Est GFR (MDRD) Non-Af BUN/Creatinine Ratio Glucose Calcium Troponin I Code Visit OBSV E&M: 50159 Observation care discharge
--- NOTE | 2018-10-04 11:57 | STRESSREP ---
Stress Test Report Pharmacologic myocardial perfusion stress test. 62-year-old man with a history of chest pain, status post coronary bypass surgery. Medications Coumadin, Plavix, Lopressor, Flomax. Stress protocol: Resting EKG demonstrates normal sinus rhythm with a left bundle branch block is noted. 0.4 mg of regadenoson was infused per usual protocol followed by rapid intravenous saline flush injection continuous EKG monitoring was performed. The maximum heart rate attained was 84 bpm which was 52% of maximum predicted heart rate the maximum workload was 1 metabolic equivalent. The resting blood pressure 130/90 6 m of mercury. At rest and during peak infusion nonspecific ST-T wave changes were noted. Myocardial perfusion protocol. 15.0 mCi of technetium 99m sestamibi was injected at rest. 0.4 mg of regadenoson was infused per usual protocol peak infusion 44.0 mCi of technetium 99m sestamibi was injected stress images were obtained stress and rest images were reconstructed and compared in the short axis vertical and horizontal long axis. Gated images were also obtained per Perfusion SPECT analysis: Review of the stress images demonstrate mildly reduced perfusion noted in all areas of the myocardium the resting images demonstrate a similar pattern. No obvious reversibility is noted to suggest ischemia. Gated SPECT analysis: The gated ejection fraction is noted to be 49%. Conclusion: Normal pharmacologic myocardial perfusion stress test. Left bundle branch block patent noted Mild cardiomyopathy present.
--- NOTE | 2018-10-04 13:28 | NURSING ---
Alejandro Pizarro [employer] notified this RN that pt can take coumadin today and tomorrow. Voicemail left for pt stating this information by this RN. call back number left if pt had further questions
== END 2018-10-04 10:20 | disposition home or self-care (01) ==
LOC: ED 20:49 → PCU 21:19
PROVIDERS: Admitting Provider Hospitalist; Emergency Provider Emergency Medicine; Family Provider Preventive Medicine Occupational Medicine; PCP Preventive Medicine Occupational Medicine; Referring Provider Hospitalist; Visit Provider Internal Medicine
DX: R07.89 Other chest pain (principal); R06.02 Shortness of breath; R42 Dizziness and giddiness; I44.7 Left bundle-branch block, unspecified; G47.33 Obstructive sleep apnea (adult) (pediatric); I25.10 Atherosclerotic heart disease of native coronary artery without angina pectoris; I10 Essential (primary) hypertension; J44.9 Chronic obstructive pulmonary disease, unspecified; I25.2 Old myocardial infarction; M19.90 Unspecified osteoarthritis, unspecified site; M51.9 Unspecified thoracic, thoracolumbar and lumbosacral intervertebral disc disorder; F31.9 Bipolar disorder, unspecified; F41.9 Anxiety disorder, unspecified; Z95.1 Presence of aortocoronary bypass graft; Z82.49 Family history of ischemic heart disease and other diseases of the circulatory system; Z87.891 Personal history of nicotine dependence; Z95.2 Presence of prosthetic heart valve; Z91.19 Patient's noncompliance with other medical treatment and regimen; Z79.02 Long term (current) use of antithrombotics/antiplatelets; Z79.51 Long term (current) use of inhaled steroids; Z79.01 Long term (current) use of anticoagulants; Z79.899 Other long term (current) drug therapy
CPT/HCPCS: 36415; 71045; 78452; 80048; 84484; 85025; 85610; 85730; 93005; 93017; 94640; 96374; 96375; 96376; 99218; 99283; A9500; A4216; G0378; J2405; J2785

== ENCOUNTER 2018-10-15 12:46 | Outpatient (RCR) | payer MEDICARE, SELFPAY ==
[2018-10-04 08:07] VITALS: BMI 33.9
[2018-10-15 13:50] LABS: Prothrombin Time (Protime)PT. 35.3 SECONDS (11.7-14.9)
[2018-10-15 13:56] LABS: International Normalized Ratio 3.5
== END 2018-10-31 14:51 | disposition home or self-care (01) ==
LOC: LAB 12:46
PROVIDERS: Family Provider Preventive Medicine Occupational Medicine; PCP Preventive Medicine Occupational Medicine; Referring Provider Internal Medicine Cardiovascular Disease; Visit Provider Internal Medicine Cardiovascular Disease
DX: I25.10 Atherosclerotic heart disease of native coronary artery without angina pectoris (principal); Z95.5 Presence of coronary angioplasty implant and graft; Z95.2 Presence of prosthetic heart valve; Z79.01 Long term (current) use of anticoagulants
CPT/HCPCS: 36415; 85610

== ENCOUNTER → 2018-10-25 10:37 | Outpatient (CLI) | payer MEDICARE, OTHER, SELFPAY ==
[2018-10-23 14:22] VITALS: BMI 34.3
[2018-10-25 11:17] VITALS: PULSE 101; PULSE 108; PULSE 111; PULSE 112; PULSE 76; PULSE 80; O2SAT 93; O2SAT 94; O2SAT 96; O2SAT 984
--- NOTE | 2018-10-26 10:16 | PCM.PSN.6M ---
PSN 6 Minute Walk Test - 6 Minute Walk Test 6 Minute Walk Test: 6 Minute Walk Test PSN:6-Minute Walk Test Start: 10/25/18 11:17 Freq: Status: Active Protocol: [id number] Document 10/25/18 11:17 JIM (Rec: 10/25/18 11:20 JIM [id number]) 6 Minute Walk Test Date Performed 10/25/18 Time Performed 11:00 Height 6 ft 1 in Weight: 117.934 kg Weight in Pounds 260.[address]: Misael Norton Assistive device used: None Pre-test Oxygen Delivery Method Room Air Pulse Ox (%) 94 Pulse Rate (60-100 beats/min) 76 Dyspnea [place] Scale (0-10) 2 Exertion [place] Scale (6-20) 6 1st minute Oxygen Delivery Method Room Air Pulse Ox (%) 93 Pulse Rate (60-100 beats/min) 101 H 2nd minute Oxygen Delivery Method Room Air Pulse Ox (%) 93 Pulse Rate (60-100 beats/min) 112 H 3rd minute Oxygen Delivery Method Room Air Pulse Ox (%) 93 Pulse Rate (60-100 beats/min) 112 H 4th minute Oxygen Delivery Method Room Air Pulse Ox (%) 94 Pulse Rate (60-100 beats/min) 111 H 5th minute Oxygen Delivery Method Room Air Pulse Ox (%) 984 Pulse Rate (60-100 beats/min) 108 H 6th minute Oxygen Delivery Method Room Air Pulse Ox (%) 94 Pulse Rate (60-100 beats/min) 108 H Dyspnea [place] Scale (0-10) 4 Exertion [place] Scale (6-20) 14 Post-test Oxygen Delivery Method Room Air Pulse Ox (%) 96 Pulse Rate (60-100 beats/min) 80 Full Laps Walked 20 Partial Lap, Number of Tiles Walked 42 Total Distance Walked (ft) 1222 - Interpretation Interpretation: The patient was able to ambulate 1222 feet over the course of 6 minutes on room air with no assistive devices or breaks. The patient had an oxygen moi of 93% and a peak heart rate of 112 bpm. - Recommendations Recommendations: No supplemental oxygen is indicated at this time.
== END ==
PROVIDERS: Family Provider Preventive Medicine Occupational Medicine; PCP Preventive Medicine Occupational Medicine; Referring Provider Nurse Practitioner Acute Care; Visit Provider Nurse Practitioner Acute Care
DX: J44.9 Chronic obstructive pulmonary disease, unspecified (principal)
CPT/HCPCS: 94618

== ENCOUNTER 2018-11-16 05:47 | Inpatient (IN) | payer MEDICARE, SELFPAY ==
[2018-11-16] VITALS (22 sets, daily range): BP systolic 80–129; BP diastolic 58–72; PULSE 78–141; RESP 13–28; TEMP 36.7–38.8; O2SAT 92–100; BMI 35.3; BMI 35.6; BMI 35.7
--- NOTE | 2018-11-16 06:05 | RAD_ITS ---
STUDY: X-RAY CHEST REASON FOR EXAM: Male, 62 years old. New onset of shortness of breath. TECHNIQUE: Three AP portable views of the chest. COMPARISON: October 03, 2018. FINDINGS: The patient has had a sternotomy. Left-sided loop recorder is visible. There is hyperinflation of the lungs consistent with chronic obstructive lung disease (COPD). There is no demonstrated pleural abnormality. Normal size heart. Normal mediastinum and damian. There is prominence of the pulmonary hilar arteries without peripheral pulmonary vascular congestion. There is atherosclerotic calcification of the aortic arch with tortuosity. Normal visualized thoracic spine. Normal visualized ribs, clavicles, and shoulders. There is no demonstrated abnormality of the visualized soft tissue structures of the upper abdomen. RAD/Chest 1 View (Portable) IMPRESSION: Heterogeneous right basilar airspace consolidation suggesting pneumonia. Electronically Signed: Tania Ramires MD at 6:38 EDT , Service support ,
--- NOTE | 2018-11-16 06:05 | EKG12_ITS ---
Test Reason : CP Blood Pressure : / mmHG Vent. Rate : 134 BPM Atrial Rate : 147 BPM P-R Int : 000 ms QRS Dur : 154 ms QT Int : 372 ms P-R-T Axes : 000 020 110 degrees QTc Int : 555 ms Wide QRS tachycardia , probably Sinus Tachycardia w LBBB Left bundle branch block Abnormal ECG Confirmed by CHANDA RIBEIRO ([id number]), editor continuity and script SHERITA HANDY ([id number]) on 11/18/2018 4:27:47 PM Referred By: SALINA Confirmed By:CHANDA RIBEIRO
--- NOTE | 2018-11-16 06:10 | ED.VIS.GEN ---
History of Present Illness Chief Complaint: Shortness of Breath Informant: Patient Onset: Hours - 3 Context: Sudden Onset - woke him up from sleep Timing: Continuous Quality: wheezing Location: chest Current Severity: Moderate Maximum Severity: Moderate Worsened by: exertion Relieved by: albuterol at home but only a little Associated Symptoms: left chest pain w/ left arm numbness Narrative: Left arm numbness is gone now. Has COPD but no home oxygen. Since he felt like he was wheezing, he did a 3 mL vial of albuterol nebulized in addition to a puff from an MDI. This seemed to help a little. He is tachycardic, he does not feel his heart racing or any palpitations in his chest. No lightheadedness. No recent edema. No significant cough or upper respiratory infection symptoms lately, he states he felt fine when he went to bed. He has a history of mechanical aortic valve and several cardiac stents but never had a myocardial infarction and so has never had symptoms like this before. He is on warfarin and Plavix and states he has been on those medicines for several years. No recent travel, leg pain/swelling, fevers, hospitalization/immobilization or surgery. States he has been using his CPAP machine every night, including tonight. - Past Medical History (1) Atherosclerosis of coronary artery of [place] heart without angina pectoris Status: Chronic Comment: CABG MEDINA-LAD, SVG-D1, SVG-OM1, SVG-PDA 01/2003 POBA-Anastomosis site of the MEDINA-LAD 06/16/2004 [facility] [id number] 03/2005 [id number] 07[facility] (2) History of coronary artery stent placement Status: Chronic Comment: POBA-Anastomosis site of the MEDINA-LAD 06/16/2004 [facility] [id number] 03/2005 @ [facility] [id number] 07[facility]/2012 [facility] (3) Hypertension Status: Chronic (4) JAMES (obstructive sleep apnea) Status: Chronic Comment: AHI 16.7 - noncompliant (5) Stage 1 mild COPD by GOLD classification Status: Chronic Past Medical History - Allergies and Home Meds Allergies/Adverse Reactions: Allergies iodine Allergy (Verified 11/16/18 05:52) Other low BP- does fine with premedication contrast dye Allergy (Uncoded 11/16/18 05:52) Shortness of breath Primary Care Physician: Bartolo Mitchell DO [Primary Care Provider] - Surgical History: angioplasty, appendectomy, cholecystectomy, coronary bypass surgery, tonsillectomy, - - mechanical aortic valve replacement Lives: With Family Smoking Status: Former smoker Drugs: None - Family History Maternal Family History: Family History (Last Reviewed 10/31/18 @ 14:18 by ARMEN Cordero) Father CAD (coronary artery disease) Mother CAD (coronary artery disease) Sister CAD (coronary artery disease) CVA (cerebral vascular accident) Family History: Reports: No pertinent history Paternal Family History: Family History (Last Reviewed 10/31/18 @ 14:18 by ARMEN Cordero) Father CAD (coronary artery disease) Mother CAD (coronary artery disease) Sister CAD (coronary artery disease) CVA (cerebral vascular accident) Family History: Reports: Heart Disease, - - myocardial infarction Sibling Family History: Family History (Last Reviewed 10/31/18 @ 14:18 by ARMEN Cordero) Father CAD (coronary artery disease) Mother CAD (coronary artery disease) Sister CAD (coronary artery disease) CVA (cerebral vascular accident) Family History: Reports: No pertinent history Review of Systems General: Denies: Chills, Fever, Sweats Eyes: Denies: Visual changes - bilaterally, Diplopia ENT: Denies: Rhinorrhea, Sore throat Cardiovascular: Reports: Chest pain. Denies: Palpitations, Heart racing Respiratory: Reports: Dyspnea, Dyspnea on exertion, Paroxysmal nocturnal dyspnea. Denies: Cough, Sputum, Orthopnea Gastrointestinal: Reports: Nausea, Vomiting. Denies: Abdominal pain, Diarrhea Genitourinary: Denies: Dysuria, Hematuria, Frequency Musculoskeletal: Denies: Back pain, Swelling, Extremity Pain Skin: Denies: Rash, Wounds Neurological: Reports: Numbness. Denies: Headache, Weakness Hematologic: Reports: Easy bruising, Easy bleeding Physical Exam Vital Signs/Narrative: Vital Signs Temp Pulse Resp BP Pulse Ox 11/16/18 05:48 99.5 F H 141 H 28 H 97/66 95 Inital Vital Signs reviewed: Yes General: Well nourished, Well developed. Negative for: No Acute Distress - +mild resp distress Head: Normocephalic, Atraumatic Eyes: Perrl, EOMI ENT: Moist mucous membranes, No rhinorrhea Neck: Supple, Nontender Cardiovascular: Regular rate, Regular rhythm, Tachycardia Respiratory: Chest nontender, Wheezing - mild end-expiratory, diffusely; sounds tight, Diminished - throughout, - - mild resp distress. Negative for: Rales, Rhonchi Abdomen: Soft, Nontender, Nondistended, Normal bowel sounds Back: Nontender, Normal Inspection Extremities: Nontender, No edema. Negative for: Edema, Calf Tenderness Skin: Normal color, No rash Neurological: Alert, Oriented x3, Cranial nerves II-XII grossly intact, Normal Strength, Normal Sensation, Normal Gait Psychological: Normal affect, Normal Mood Diagnostic/Tx/Re-eval Impressions Chest X-Ray 11/16/18 06:05 IMPRESSION: Heterogeneous right basilar airspace consolidation suggesting pneumonia. Electronically Signed: Tania Ramires MD at 6:38 EDT , Service support , 11/16/18 06:05 Chest 1 View (Portable) [RAD] Stat Laboratory Results 11/16/18 11/16/18 11/16/18 05:54 05:54 05:54 WBC 6.4 RBC 4.46 L Hgb 14.8 Hct 43.6 MCV 97.8 H MCH 33.2 H MCHC 33.9 RDW 13.6 RDW Differential 47.4 H Plt Count 209 MPV 9.2 Immature Gran % (Auto) 0.300 Neut % (Auto) 81.5 H Lymph % (Auto) 9.7 L [place] % (Auto) 7.3 Eos % (Auto) 0.9 Baso % (Auto) 0.3 Absolute Neuts (auto) 5.2 Absolute Lymphs (auto) 0.62 L Total Counted Not Reportable PT 36.4 H INR 3.6 H* D-Dimer Quant (PE/DVT) Cancelled Sodium 141 Potassium 4.2 Chloride 110 H Carbon Dioxide 22.0 Anion Gap 9 BUN 13 Creatinine 1.20 Estim Creat Clear Calc 73.06 Est GFR (MDRD) Af Amer 79 Est GFR (MDRD) Non-Af 65 BUN/Creatinine Ratio 10.8 Glucose 158 H Lactic Acid Calcium 7.7 L Troponin I < 0.015 11/16/18 06:20 WBC RBC Hgb Hct MCV MCH MCHC RDW RDW Differential Plt Count MPV Immature Gran % (Auto) Neut % (Auto) Lymph % (Auto) Trinity % (Auto) Eos % (Auto) Baso % (Auto) Absolute Neuts (auto) Absolute Lymphs (auto) Total Counted PT INR D-Dimer Quant (PE/DVT) Sodium Potassium Chloride Carbon Dioxide Anion Gap BUN Creatinine Estim Creat Clear Calc Est GFR (MDRD) Af Amer Est GFR (MDRD) Non-Af BUN/Creatinine Ratio Glucose Lactic Acid 2.2 H Calcium Troponin I - Rhythm Strip Rhythm Strip: Sinus Tach Rate: 130 Ectopy: None - EKG Initial EKG Interpretation: No Acute Injury Pattern, Sinus Tachycardia, LBBB, Non-Specific ST Changes Prior: Unchanged - Medical Decision Making Given his tachypnea and tachycardia, as well as developing a temp over 101, meets sepsis criteria. His lactate returned elevated over 2, so he has severe sepsis. His blood pressure is stable and he does not require treatment for shock. He was given antibiotics just after blood cultures were obtained, all of which was ordered just after I saw his chest x-ray which shows a right lower lobe infiltrate. Interesting since the patient has not been coughing, but it does not look like pulmonary edema. His high fever is consistent with this. I am sending an influenza swab, he did not have an influenza vaccine this year. He is breathing much better after a duo nebulizer treatment, we did not give him a lot of beta agonist since he was already tachycardic. It did not make him more tachycardic it actually helped his breathing. He is feeling shaky and is asking for something to help him calm his nerves, so since we are monitoring him closely I will give him a small dose of IV Ativan. He is not hypoxic, but certainly has respiratory insufficiency and appears ill. Will admit him for further treatment. Solu-Medrol also given. Awaiting results of BNP. ED Disposition - Plan for ED Patient: Disposition: Acute Care [facility] Diagnosis: Chest pain, unspecified, Severe sepsis, Community acquired pneumonia, COPD with exacerbation, Respiratory insufficiency Referrals: Bartolo Mitchell DO [Primary Care Provider] -
[2018-11-16] MEDS: Ondansetron 4 MG/2 ML Vial IV (06:12)
[2018-11-16] MEDS: Aspirin 81 MG TAB.CHEW 324 MG PO (06:12)
--- NOTE | 2018-11-16 06:14 | ED.DCSUM_ITS ---
History of Present Illness Chief Complaint: Shortness of Breath Informant: Patient Onset: Hours - 3 Context: Sudden Onset - woke him up from sleep Timing: Continuous Quality: wheezing Location: chest Current Severity: Moderate Maximum Severity: Moderate Worsened by: exertion Relieved by: albuterol at home but only a little Associated Symptoms: left chest pain w/ left arm numbness Narrative: Left arm numbness is gone now. Has COPD but no home oxygen. Since he felt like he was wheezing, he did a 3 mL vial of albuterol nebulized in addition to a puff from an MDI. This seemed to help a little. He is tachycardic, he does not feel his heart racing or any palpitations in his chest. No lightheadedness. No recent edema. No significant cough or upper respiratory infection symptoms lately, he states he felt fine when he went to bed. He has a history of mechanical aortic valve and several cardiac stents but never had a myocardial infarction and so has never had symptoms like this before. He is on warfarin and Plavix and states he has been on those medicines for several years. No recent travel, leg pain/swelling, fevers, hospitalization/immobilization or surgery. States he has been using his CPAP machine every night, including t onight. - Past Medical History (1) Atherosclerosis of coronary artery of [place] heart without angina pectoris Status: Chronic Comment: CABG MEDINA-LAD, SVG-D1, SVG-OM1, SVG-PDA 01/2003 POBA-Anastomosis site of the MEDINA-LAD 06/16/2004 [facility] [id number] 03/2005 [id number] 07/15/2012 @ [facility] (2) History of coronary artery stent placement Status: Chronic Comment: POBA-Anastomosis site of the MEDINA-LAD 06/16/2004 [facility] [id number] 03/2005 @ [facility] [id number] 07/15/2012 @ [facility] (3) Hypertension Status: Chronic (4) JAMES (obstructive sleep apnea) Status: Chronic Comment: AHI 16.7 - noncompliant (5) Stage 1 mild COPD by GOLD classification Status: Chronic Past Medical History - Allergies and Home Meds Allergies/Adverse Reactions: Allergies iodine Allergy (Verified 11/16/18 05:52) Other low BP- does fine with premedication contrast dye Allergy (Uncoded 11/16/18 05:52) Shortness of breath Primary Care Physician: Bartolo Mitchell DO [Primary Care Provider] - Surgical History: angioplasty, appendectomy, cholecystectomy, coronary bypass surgery, tonsillectomy, - - mechanical aortic valve replacement Lives: With Family Smoking Status: Former smoker Drugs: None - Family History Maternal Family History: Family History (Last Reviewed 10/31/18 @ 14:18 by ARMEN Cordero) Father CAD (coronary artery disease) Mother CAD (coronary artery disease) Sister CAD (coronary artery disease) CVA (cerebral vascular accident) Family History: Reports: No pertinent history Paternal Family History: Family History (Last Reviewed 10/31/18 @ 14:18 by ARMEN Cordero) Father CAD (coronary artery disease) Mother CAD (coronary artery disease) Sister CAD (coronary artery disease) CVA (cerebral vascular accident) Family History: Reports: Heart Disease, - - myocardial infarction Sibling Family History: Family History (Last Reviewed 10/31/18 @ 14:18 by ARMEN Cordero) Father CAD (coronary artery disease) Mother CAD (coronary artery disease) Sister CAD (coronary artery disease) CVA (cerebral vascular accident) Family History: Reports: No pertinent history Review of Systems General: Denies: Chills, Fever, Sweats Eyes: Denies: Visual changes - bilaterally, Diplopia ENT: Denies: Rhinorrhea, Sore throat Cardiovascular: Reports: Chest pain. Denies: Palpitations, Heart racing Respiratory: Reports: Dyspnea, Dyspnea on exertion, Paroxysmal nocturnal dyspnea. Denies: Cough, Sputum, Orthopnea Gastrointestinal: Reports: Nausea, Vomiting. Denies: Abdominal pain, Diarrhea Genitourinary: Denies: Dysuria, Hematuria, Frequency Musculoskeletal: Denies: Back pain, Swelling, Extremity Pain Skin: Denies: Rash, Wounds Neurological: Reports: Numbness. Denies: Headache, Weakness Hematologic: Reports: Easy bruising, Easy bleeding Physical Exam Vital Signs/Narrative: Vital Signs Temp Pulse Resp BP Pulse Ox 11/16/18 05:48 99.5 F H 141 H 28 H 97/66 95 Inital Vital Signs reviewed: Yes General: Well nourished, Well developed. Negative for: No Acute Distress - +mild resp distress Head: Normocephalic, Atraumatic Eyes: Perrl, EOMI ENT: Moist mucous membranes, No rhinorrhea Neck: Supple, Nontender Cardiovascular: Regular rate, Regular rhythm, Tachycardia Respiratory: Chest nontender, Wheezing - mild end-expiratory, diffusely; sounds tight, Diminished - throughout, - - mild resp distress. Negative for: Rales, Rhonchi Abdomen: Soft, Nontender, Nondistended, Normal bowel sounds Back: Nontender, Normal Inspection Extremities: Nontender, No edema. Negative for: Edema, Calf Tenderness Skin: Normal color, No rash Neurological: Alert, Oriented x3, Cranial nerves II-XII grossly intact, Normal Strength, Normal Sensation, Normal Gait Psychological: Normal affect, Normal Mood Diagnostic/Tx/Re-eval Impressions Chest X-Ray 11/16/18 06:05 IMPRESSION: Heterogeneous right basilar airspace consolidation suggesting pneumonia. Electronically Signed: Tania Ramires MD at 6:38 EDT , Service support , 11/16/18 06:05 Chest 1 View (Portable) [RAD] Stat Laboratory Results 11/16/18 11/16/18 11/16/18 05:54 05:54 05:54 WBC 6.4 RBC 4.46 L Hgb 14.8 Hct 43.6 MCV 97.8 H MCH 33.2 H MCHC 33.9 RDW 13.6 RDW Differential 47.4 H Plt Count 209 MPV 9.2 Immature Gran % (Auto) 0.300 Neut % (Auto) 81.5 H Lymph % (Auto) 9.7 L [place] % (Auto) 7.3 Eos % (Auto) 0.9 Baso % (Auto) 0.3 Absolute Neuts (auto) 5.2 Absolute Lymphs (auto) 0.62 L Total Counted Not Reportable PT 36.4 H INR 3.6 H* D-Dimer Quant (PE/DVT) Cancelled Sodium 141 Potassium 4.2 Chloride 110 H Carbon Dioxide 22.0 Anion Gap 9 BUN 13 Creatinine 1.20 Estim Creat Clear Calc 73.06 Est GFR (MDRD) Af Amer 79 Est GFR (MDRD) Non-Af 65 BUN/Creatinine Ratio 10.8 Glucose 158 H Lactic Acid Calcium 7.7 L Troponin I < 0.015 11/16/18 06:20 WBC RBC Hgb Hct MCV MCH MCHC RDW RDW Differential Plt Count MPV Immature Gran % (Auto) Neut % (Auto) Lymph % (Auto) [place] % (Auto) Eos % (Auto) Baso % (Auto) Absolute Neuts (auto) Absolute Lymphs (auto) Total Counted PT INR D-Dimer Quant (PE/DVT) Sodium Potassium Chloride Carbon Dioxide Anion Gap BUN Creatinine Estim Creat Clear Calc Est GFR (MDRD) Af Amer Est GFR (MDRD) Non-Af BUN/Creatinine Ratio Glucose Lactic Acid 2.2 H Calcium Troponin I - Rhythm Strip Rhythm Strip: Sinus Tach Rate: 130 Ectopy: None - EKG Initial EKG Interpretation: No Acute Injury Pattern, Sinus Tachycardia, LBBB, Non-Specific ST Changes Prior: Unchanged - Medical Decision Making Given his tachypnea and tachycardia, as well as developing a temp over 101, meets sepsis criteria. His lactate returned elevated over 2, so he has severe sepsis. His blood pressure is stable and he does not require treatment for shock. He was given antibiotics just after blood cultures were obtained, all of which was ordered just after I saw his chest x-ray which shows a right lower lobe infiltrate. Interesting since the patient has not been coughing, but it does not look like pulmonary edema. His high fever is consistent with this. I am sending an influenza swab, he did not have an influenza vaccine this year. He is breathing much better after a duo nebulizer treatment, we did not give him a lot of beta agonist since he was already tachycardic. It did not make him more tachycardic it actually helped his breathing. He is feeling shaky and is asking for something to help him calm his nerves, so since we are monitoring him closely I will give him a small dose of IV Ativan. He is not hypoxic, but certainly has respiratory insufficiency and appears ill. Will admit him for further treatment. Solu-Medrol also given. Awaiting results of BNP. ED Disposition - Plan for ED Patient: Disposition: Acute Care Hospital [facility] Diagnosis: Chest pain, unspecified, Severe sepsis, Community acquired pneumonia, COPD with exacerbation, Respiratory insufficiency Referrals: Bartolo Mitchell DO [Primary Care Provider] -
[2018-11-16 06:15] LABS: Absolute Lymphocyte Count 0.62 X10^3/ul (0.83-4.51); Absolute Neutrophil Count 5.2 X10^3/uL (2.0-7.7); Basophil# 0.02 X10^3/uL; Basophil% 0.3 % (0-1); Eosinophil# 0.06 X10^3/uL; Eosinophils% 0.9 % (0-5); Hematocrit 43.6 % (40-54); Hemoglobin 14.8 g/dl (13.0-16.5); Lymphocyte # 0.62 X10^3/ul (4.0); Lymphocyte % 9.7 % (19-41); Mean Corp Hgb Conc 33.9 g/gl (32-36); Mean Corpuscular Hgb 33.2 pg (27.0-32.0); Mean Corpuscular Volume 97.8 fL (80-94); Mean Platelet Vol. 9.2 fl (6.2-12.0); Monocyte# 0.47 X10^3/uL; Monocyte% 7.3 % (0-10); Neutrophil # 5.23 X10^3/uL (2.7-7.7); Neutrophil % 81.5 % (47-70); Platelet Count 209 K/mm3 (150-450); RBC Distribution Width CV 13.6 % (11.6-14.6); RBC Distribution Width SD 47.4 fl (35.1-43.9); Red Blood Count 4.46 M/mm3 (4.6-6.2); White Blood Count 6.4 K/mm3 (4.4-11.0)
[2018-11-16 06:18] LABS: POSITIVE COUNT NO; POSITIVE DIFFERENTIAL NO; POSITIVE MORPHOLOGY NO
[2018-11-16 06:19] LABS: Prothrombin Time (Protime)PT. 36.4 SECONDS (11.7-14.9)
[2018-11-16 06:24] LABS: International Normalized Ratio 3.6
[2018-11-16] MEDS: Ipratropium/Albuterol Sulfate 3 ML AMPUL.NEB INHALATION ×5 (06:24→22:39)
[2018-11-16 06:38] LABS: Anion Gap 9 (5-15); BUN 13 mg/dL (7-18); BUN/Creat Ratio 10.8 RATIO (10-20); Calcium,Total 7.7 mg/dL (8.5-10.1); Chloride 110 mmol/L (98-107); EST Glomerular Filtration Rate 65 mL/min (>60); Est Glom Filt Rate - Afr Amer 79 mL/min (>60); Estimated Creatinine Clearance 73.06 ml/min; Glucose 158 mg/dL (74-106); Potassium 4.2 mmol/L (3.5-5.1); Sodium Level 141 mmol/L (136-145)
[2018-11-16] MEDS: Acetaminophen 500 MG Tablet 1000 MG PO (07:02)
[2018-11-16] MEDS: MethylPREDNISolone 125 MG/2 ML Vial IV (07:03)
[2018-11-16] MEDS: Azithromycin 250 MG Tablet 500 MG PO (07:03)
[2018-11-16] MEDS: LORazepam 2 MG/ML Syringe 0.5 MG IV (07:03)
[2018-11-16 07:04] LABS: Lactic Acid 2.2 mmol/L (0.4-2.0)
[2018-11-16] MEDS: Ceftriaxone 1 GM/50 ML BAG IV (07:07)
[2018-11-16] MEDS: 0.9% Normal Saline 1,000 ML 999 ML IV (07:07)
--- NOTE | 2018-11-16 07:18 | HP.PCM_ITS ---
Problem List (1) Aspiration pneumonia Status: Suspected Qualifiers: Laterality: right (2) Hypotension Status: Acute Qualifiers: Hypotension type: unspecified hypotension type Qualified Code(s): I95.9 - H ypotension, unspecified Comment: suspect due to dehydration (3) Dehydration Status: Acute (4) Chest pain, unspecified Status: Resolved (5) Community acquired pneumonia Status: Acute (6) COPD with exacerbation Status: Acute (7) Stage 1 mild COPD by GOLD classification Status: Chronic (8) Lung nodule Status: Chronic Comment: Repeat CT of the chest due September 12, 2019 (9) JAMES (obstructive sleep apnea) Status: Chronic Comment: AHI 16.7 - noncompliant (10) 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 Status: Chronic (11) Nonrheumatic aortic (valve) stenosis with insufficiency Status: Chronic (12) Atherosclerosis of coronary artery of [place] heart without angina pectoris Status: Chronic Comment: CABG MEDINA-LAD, SVG-D1, SVG-OM1, SVG-PDA 01/2003 POBA-Anastomosis site of the MEDINA-LAD 06/16/2004 [facility] [id number] 03/2005 [id number] 07/15/2012 @ [facility] (13) History of coronary artery stent placement Status: Chronic Comment: POBA-Anastomosis site of the MEDINA-LAD 06/16/2004 [facility] [id number] 03/2005 @ [facility] [id number] 07/15/2012 @ [facility] (14) Non-ST elevation (NSTEMI) myocardial infarction Status: Inactive (15) Presence of aortocoronary bypass graft Status: Chronic Comment: MEDINA-LAD, SVG-D1, SVG-OM1, SVG-PDA 01/2003 @ [facility] (16) H/O aortic valve replacement Status: Chronic Comment: Mechanical, on Coumadin therapy 09/2004 [facility] @ [facility] (17) Hypertension Status: Chronic (18) Dementia Status: Chronic (19) Bipolar disorder Status: Chronic (20) GERD (gastroesophageal reflux disease) Status: Chronic (21) CVA (cerebral vascular accident) Status: Chronic (22) PUD (peptic ulcer disease) Status: Chronic (23) Obesity (BMI 30-39.9) Status: Chronic History of Present Illness Date of Admission: 11/16/18 Chief Complaint: SOB, shaking The patient is a 62 year old M with a past medical history of hypertension, bipolar disorder, coronary artery disease with history of CABG and PCI, bicuspid aortic valve status post mechanical aortic valve replacement, chronic anticoagulation with warfarin, GERD, peptic ulcer disease, remote CVA, obstructive sleep apnea noncompliant with CPAP, COPD and obesity who presented to the emergency department at [facility] on 11/16/2018 complaining of awakening suddenly at 3 AM with shortness of breath and shaking. He states he felt well when he went to bed and denies any recent fever, chills, nausea, vomiting, cough, wheezing. He used his inhalers and then his nebulizer without significant improvement and he came to the emergency room. He denies any sick contacts. He did not have an influenza shot this year but he has had Pneumovax in the past. Vital signs of presentation to the emergency department were temperature 98.3, pulse rate 72, blood pressure 141/82, respiratory rate 14 and he was 95-97% saturated on room air. Respiratory rate then went up to 28. The blood pressure when I was in the room examining him was 80/50 and he complained of lightheadedness. CBC showed a white blood cell count of 6.4 with a left shift. Hemoglobin and platelets were within normal limits. INR was supratherapeutic at 3.6. BMP was unremarkable with the exception of creatinine of 1.2 which is up from 0.95 in early October. Lactic acid was 2.2 and troponin was less than 0.015. Chest x-ray showed right lower lobe pneumonia. He was given a DuoNeb aerosol in the emergency room and his breathing improved. At the time of my examination he had no conversational dyspnea, was not tachypneic and had no accessory muscle use. He was not wheezing. Influenza swab in the emergency room was negative. Blood cultures were sent. He was admitted to the hospital with a diagnosis of pneumonia and I suspect this may be secondary to aspiration due to it's very sudden onset and the face that he felt well when he went to bed and it awoke him suddenly from sleep. He has a known hx of GERD. ECHO within the past 6 months shows a normal AF and stress in Apr was negative. 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 (Chronic) Nonrheumatic aortic (valve) stenosis with insufficiency (Chronic) Atherosclerosis of coronary artery of [place] heart without angina pectoris (Chronic) CABG MEDINA-LAD, SVG-D1, SVG-OM1, SVG-PDA 01/2003 POBA-Anastomosis site of the MEDINA-LAD 06/16/2004 [facility] [id number] 03/2005 [id number] 07/15/2012 @ [facility] History of coronary artery stent placement (Chronic) POBA-Anastomosis site of the MEDINA-LAD 06/16/2004 [facility] [id number] 03/2005 @ [facility] [id number] 07/15/2012 @ [facility] Presence of aortocoronary bypass graft (Chronic ~01/2003) MEDINA-LAD, SVG-D1, SVG-OM1, SVG-PDA 01/2003 @ [facility] H/O aortic valve replacement (Chronic ~09/2004) Mechanical, on Coumadin therapy 09/2004 [facility]ve @ [facility] Hypertension (Chronic) Medical History: Medical History (Last Reviewed 11/16/18 @ 08:12 by Jose Lepe DO) alf (current) use of anticoagulants (Chronic) Z79.01 Nonrheumatic aortic (valve) stenosis with insufficiency (Chronic) I35.2 Atherosclerosis of coronary artery of [place] heart without angina pectoris (Chronic) I25.10 CABG MEDINA-LAD, SVG-D1, SVG-OM1, SVG-PDA 01/2003 POBA-Anastomosis site of the MEDINA-LAD 06/16/2004 [facility] [id number] 03/2005 [id number] 07/15/2012 @ [facility] Hypertension (Chronic) I10 Arthritis M19.90 Bipolar 1 disorder F31.9 COPD (chronic obstructive pulmonary disease) J44.9 CVA (cerebral vascular accident) I63.9 Depression F32.9 GERD (gastroesophageal reflux disease) K21.9 Lumbar disc disease M51.9 Obstructive sleep apnea G47.33 Peptic ulcer disease K27.9 Status post placement of implantable loop recorder Onset Date: ~2004 Z95.818 Syncope and collapse R55 Bicuspid aortic valve Q23.1 Non-ST elevation (NSTEMI) myocardial infarction (Inactive) I21.4 Allergies iodine Allergy (Verified 11/16/18 05:52) Other low BP- does fine with premedication contrast dye Allergy (Uncoded 11/16/18 05:52) Shortness of breath Home Medications: Ambulatory Orders Medication Instructions Recorded Benztropine [Cogentin] 0.5 mg PO TID 10/20/15 Clopidogrel Bisulfate [Plavix] 75 mg PO DAILY 10/20/15 Risperidone [Risperdal] 4 mg PO BID 10/20/15 Pantoprazole Sodium [Protonix] 40 mg PO BID 02/01/17 Tamsulosin HCl [Flomax] 0.4 mg PO QHS 02/01/17 Fluticasone/Salmeterol [Advair 1 puff INHALATION DAILY 05/25/17 250/50 Mcg Diskus] warfarin 5 mg tablet 10 mg PO QDAY #60 tab 01/21/18 bupropion HCl XL 150 mg 24 hr 150 mg PO QAM 09/12/18 tablet, extended release buspirone 10 mg tablet 15 mg PO TID 09/12/18 cetirizine 10 mg tablet 10 mg PO DAILY 09/12/18 fluoxetine 60 mg tablet 40 mg PO DAILY 09/12/18 naltrexone 50 mg tablet 50 mg PO DAILY 09/12/18 potassium chloride ER 10 mEq 10 meq PO DAILY 09/12/18 capsule,extended release acapella See Rx Instructions .ROUTE 09/16/18 .MEDSUPPLY #1 ea metoprolol tartrate 25 mg tablet 12.5 mg PO BID #30 tab 09/17/18 Albuterol Sulfate [Ventolin Hfa] 2 puff INHALATION Q4H 10/03/18 Donepezil HCl 10 mg PO DAILY 10/03/18 albuterol sulfate 2.5 mg/3 mL 2.5 mg INHALATION Q4H PRN #180 ml 10/23/18 (0.083 %) solution for nebulization Surgical History: Surgical History (Last Reviewed 11/16/18 @ 08:12 by Jose Lepe DO) History of coronary artery stent placement (Chronic) Z95.5 POBA-Anastomosis site of the MEDINA-LAD 06/16/2004 [facility] [id number] 03/2005 @ [facility] [id number] 07/15/2012 @ [facility] Presence of aortocoronary bypass graft (Chronic) Onset Date: ~01/2003 Z95.1 MEDINA-LAD, SVG-D1, SVG-OM1, SVG-PDA 01/2003 @ [facility] H/O aortic valve replacement (Chronic) Onset Date: ~09/2004 Z95.2 Mechanical, on Coumadin therapy 09/2004 [facility] Valve @ [facility] Abdominal Aortagram Onset Date: ~08/18/13 [facility] by Dr Siegel History of appendectomy Z98.890, Z90.49 History of left heart catheterization Onset Date: ~10/22/15 Z98.890 History of lumbar spinal fusion Onset Date: ~06/29/14 Z98.1 History of repair of right rotator cuff Z98.890 Surgical History: angioplasty, appendectomy, cholecystectomy, coronary bypass surgery, tonsillectomy, - - mechanical aortic valve replacement Psychiatric History: Bipolar Lives: With Family Smoking Status: Former smoker - quit in 2008 Tobacco Use: Non-smoker Alcohol: None Drugs: None - *Family History Maternal Family History: Family History (Last Reviewed 11/16/18 @ 08:11 by Jose Lepe DO) Father CAD (coronary artery disease) Mother CAD (coronary artery disease) Sister CAD (coronary artery disease) CVA (cerebral vascular accident) History Items: No pertinent history Paternal Family History: Family History (Last Reviewed 11/16/18 @ 08:11 by Jose Lepe DO) Father CAD (coronary artery disease) Mother CAD (coronary artery disease) Sister CAD (coronary artery disease) CVA (cerebral vascular accident) History Items: Heart Disease, - - myocardial infarction Sibling Family History: Family History (Last Reviewed 11/16/18 @ 08:11 by Jose Lepe DO) Father CAD (coronary artery disease) Mother CAD (coronary artery disease) Sister CAD (coronary artery disease) CVA (cerebral vascular accident) History Items: No pertinent history Review of Systems Constitutional: Denies: Anorexia, Chills, Fever, Malaise, Weight Change Eyes: Denies: Blurred vision HEENT: Denies: Difficulty Swallowing, Head Aches, Sinus Congestion, Sinus Drainage, Sore Throat Cardiovascular: Reports: Light Headedness. Denies: Chest Pain, Edema, Palpitations Respiratory: Reports: Shortness of Breath, Shortness of breath at rest, Shortness of breath upon exertion, Wheezing. Denies: Cough, Hemoptysis, Pleuritic Pain, Sputum production Gastrointestinal: Reports: Abdominal Pain - epigastric. Denies: Diarrhea, Nausea, Vomiting Genitourinary: Denies: Dysuria Musculoskeletal: Denies: Joint Pain, Joint Tenderness Skin: Denies: Jaundice, Rash, Wounds Neurological: Denies: Focal weakness, Numbness, Tingling, Seizures Psychiatric: Denies: Anxiety, Depression, Homicidal Ideations, Suicidal Ideations Endocrine: Denies: Change in Body Habitus Hematologic/ Lymphatic: Denies: Easy Bruising, Easy Bleeding, Hx of blood clot VTE Information - Inpt Only VTE Present on Admission: No VTE Mechan Device Prophylaxis: None VTE Pharm Prophylaxis ordered?: No Reason prophylaxis not ordered:: Treatment Not Indicated - he is supratherapeutic on Warfarin Patient Problems: Active and Suspected Problems (Last Reviewed 10/31/18 @ 14:18 by Lilliam almeida PRECIPITATOR OPERATOR-C) Community acquired pneumonia (Acute) COPD with exacerbation (Acute) Aspiration pneumonia (Suspected) Hypotension (Acute) suspect due to dehydration Dehydration (Acute) - Physical Exam General: Alert, Cooperative, No apparent distress HEENT: Atraumatic, PERRLA, EOMI, Normocephalic Neck: Supple, No JVD, Negative Carotid Bruits Lungs: Diminished, Rales - base, Wheezes - R base Cardiovascular: Regular rate, Normal S1, Normal S2, No murmurs - but he has a metallic click from the mechanical AV, No rub noted, No Gallop Abdomen: Bowel Sounds Present, Soft, Non Tender, Non-Distended, Obese Extremities: No clubbing, No cyanosis, No edema, Peripheral Pulses Normal Skin: No rashes, No breakdown Musculoskeletal: No Tenderness to Palpation of Joints or Extremities Neurological: Cranial nerves II-XII grossly intact, Neuro grossly intact Psych/Mental Status: Normal Affect, Appropriate Vital Signs Temp Pulse Resp BP Pulse Ox 101.9 F H 119 H 23 H 106/62 94 11/16/18 06:49 11/16/18 06:49 11/16/18 06:49 11/16/18 06:49 11/16/18 06:49 Oxygen Flow Rate (L/min) 2 Oxygen Delivery Method Nasal Cannula Weight: 270 lb Body Mass Index (BMI) 35.6 Laboratory Tests Past 24 Hrs 11/16/18 11/16/18 11/16/18 05:54 05:54 05:54 WBC 6.4 RBC 4.46 L Hgb 14.8 Hct 43.6 MCV 97.8 H MCH 33.2 H MCHC 33.9 RDW 13.6 RDW Differential 47.4 H Plt Count 209 MPV 9.2 Immature Gran % (Auto) 0.300 Neut % (Auto) 81.5 H Lymph % (Auto) 9.7 L [place] % (Auto) 7.3 Eos % (Auto) 0.9 Baso % (Auto) 0.3 Absolute Neuts (auto) 5.2 Absolute Lymphs (auto) 0.62 L Total Counted Not Reportable PT 36.4 H INR 3.6 H* D-Dimer Quant (PE/DVT) Cancelled Sodium 141 Potassium 4.2 Chloride 110 H Carbon Dioxide 22.0 Anion Gap 9 BUN 13 Creatinine 1.20 Estim Creat Clear Calc 73.06 Est GFR (MDRD) Af Amer 79 Est GFR (MDRD) Non-Af 65 BUN/Creatinine Ratio 10.8 Glucose 158 H Lactic Acid Calcium 7.7 L Troponin I < 0.015 B-Natriuretic Peptide 11/16/18 11/16/18 05:54 06:20 WBC RBC Hgb Hct MCV MCH MCHC RDW RDW Differential Plt Count MPV Immature Gran % (Auto) Neut % (Auto) Lymph % (Auto) [place] % (Auto) Eos % (Auto) Baso % (Auto) Absolute Neuts (auto) Absolute Lymphs (auto) Total Counted PT INR D-Dimer Quant (PE/DVT) Sodium Potassium Chloride Carbon Dioxide Anion Gap BUN Creatinine Estim Creat Clear Calc Est GFR (MDRD) Af Amer Est GFR (MDRD) Non-Af BUN/Creatinine Ratio Glucose Lactic Acid 2.2 H Calcium Troponin I B-Natriuretic Peptide Pending Assessment/Plan All Active Problems (Last Reviewed 10/31/18 @ 14:18 by Lilliam Denney, JOB-C) Community acquired pneumonia (Acute) COPD with exacerbation (Acute) Hypotension (Acute) Dehydration (Acute) Chest pain, unspecified (Resolved) Impressions 1. RLL PNA of sudden onset at 3 AM associated with sudden onset SOB. Suspect aspiration. Known hx of GERD. Zosyn started. Blood and sputum cultures ordered. Respiratory panel and urine for Legionella and streptococcal antigens ordered. 2. Acute exacerbation COPD. ATC aerosolized bronchodilators ordered. IS and PEP 3. hypotension with increased creat - suspect due to dehydration. 1 L NS bolus ordered. Maintenance fluids ordered at 150 cc/hr 4. COPD 5. CAD with hx of CABG and PCI 6. BPD 7. GERD/PUD 8. HTN 9. HLD Urine for streptococcal antigen Urine for Legionella antigen Respiratory panel Influenza swab Sputum for Gram stain C&S Blood cultures ?2 Mucinex 1200 mg twice daily Aerosolized bronchodilators Incentive spirometry PEP Ambulatory pulse ox prior to DC Code Visit Inpatient E&M: 43183 Subs Hosp L3
--- NOTE | 2018-11-16 07:30 | ED.RN ---
pt bp decreased. 80/50. rechecked bp x2, consistently low. ns bolus infusing.
--- NOTE | 2018-11-16 07:53 | ED.RN ---
0700 LACTIC 2.2 CALLED FROM THE LAB
[2018-11-16 08:33] LABS: BNP,B-Type NATRIURETIC PEPTIDE 75.2 pg/mL (0-100)
[2018-11-16 09:34] LABS: AST(SGOT) 23 U/L (15-37); Alanine Aminotransfer ALT/SGPT 32 U/L (16-61); Albumin, Serum 3.3 g/dL (3.2-5.0); Alkaline Phosphatase 153 U/L (45-117); Bilirubin, Direct 0.13 mg/dL (0.00-0.30); Globulin 3.4 g/dL (2.2-4.2); Magnesium 1.6 mg/dL (1.6-2.6); Phosphorus 1.1 mg/dL (2.5-4.9); Protein, Total 6.7 g/dL (6.4-8.2)
[2018-11-16 10:26] LABS: Reflex Lactate? Y
[2018-11-16] MEDS: Loratadine 10 MG Tablet PO (10:49)
[2018-11-16] MEDS: guaiFENesin 1,200 MG Tablet 1200 MG PO ×2 (10:49→21:58)
[2018-11-16] MEDS: Clopidogrel Bisulfate 75 MG Tablet PO (10:49)
[2018-11-16] MEDS: RisperiDONE 2 MG Tablet 4 MG PO ×2 (10:49→21:59)
[2018-11-16] MEDS: Pantoprazole Sodium 40 MG Tablet PO ×2 (10:49→21:58)
[2018-11-16] MEDS: buPROPion (XL) 150 MG TABLET.XL PO (10:49)
[2018-11-16] MEDS: FLUoxetine 20 MG Capsule 40 MG PO (10:49)
[2018-11-16] MEDS: 0.9% Normal Saline 1,000 ML 150 ML IV (11:16)
[2018-11-16 11:36] LABS: Lactic Acid 2.3 mmol/L (0.4-2.0)
[2018-11-16] MEDS: Acetaminophen 325 MG Tablet 650 MG PO ×2 (12:02→16:32)
[2018-11-16 12:37] LABS: Color, Urine Yellow (Yellow); Glucose, Dipstick Normal (Normal); Ketone-Dipstick Negative (Negative); Leukocyte Esterase-Dipstick Negative /ul (Negative); Nitrite-Dipstick Negative (Negative); Occult Blood-Urine 10 /ul (Negative); Protein-Dipstick Negative (Negative); Urine Bilirubin Dipstick Negative (Negative); Urine Clarity Clear (Clear); Urine Urobilinogen Normal (Normal)
[2018-11-16 12:47] LABS: M R Staph aureus DNA By PCR Negative (Negative); Probe Check PASS; Specimen Processing Control PASS
--- NOTE | 2018-11-16 13:22 | CM.UR ---
RN CM Assessment Met face to face with patient for initial transition planning/care coordination assessment. Introduced myself and my role. Verb understanding and agreement for assessment. Presentation: SOB--continued even after inhaler and aerosols. PCP: Paula Jimenez Pharmacy: [facility] Insurance: [facility] Prescription Benefit: yes LNOK: Alissa Matos Home: Apartment with 6 steps to enter. Has 2nd floor in apt with 11 steps to 2nd floor. ADLs: Independent with ADLs. Transportation: drives. States he can't drive any longer due to medication that causes blurred vision. DME: CPAP, nebulizer, grab bars. Got cpap and nebulizer from [facility]. SNF/HHC: [facility] previously. Passport/waiver care nurse rn: None Advance Directives: No advance directives. DC PLAN: Plan to dc home. Case Management will continue to follow for possible oxygen. patient would like home o2 d/t shortness of breath. Instructed he will need to meet criteria but we will continue to follow and help set up if needed. Verb understanding. Alejandro Aguilera RN, CCM.
[2018-11-16] MEDS: busPIRone 15 MG TABLET PO ×2 (15:18→21:58)
[2018-11-16] MEDS: Benztropine 2 MG Tablet 0.5 MG PO ×2 (15:18→21:57)
[2018-11-16] MEDS: Metoprolol Tartrate 25 MG Tablet 12.5 MG PO ×2 (15:19→21:58)
[2018-11-16] MEDS: LORazepam 0.5 MG Tablet PO (21:58)
[2018-11-16] MEDS: Donepezil HCl 10 MG Tablet PO (21:58)
[2018-11-16] MEDS: Tamsulosin HCl 0.4 MG Capsule PO (21:59)
[2018-11-17] VITALS (9 sets, daily range): BP systolic 135–153; BP diastolic 62–73; PULSE 70–100; RESP 18–20; TEMP 36.6–36.8; O2SAT 94–97
[2018-11-17] MEDS: 0.9% Normal Saline 1,000 ML 150 ML IV ×2 (03:27→10:27)
--- NOTE | 2018-11-17 05:15 | RAD_ITS ---
STUDY: X-RAY CHEST REASON FOR EXAM: Male, 62 years old. Acute exacerbation of COPD and chest pain. TECHNIQUE: PA and lateral views of the chest. COMPARISON: November 16, 2018. FINDINGS: A loop recorder is visible. Patient has had a sternotomy. Cardiac monitoring leads are present. There is hyperinflation of the lungs consistent with chronic obstructive lung disease (COPD). There is a patchy right sided basilar airspace consolidation and atelectasis. This could represent pneumonia. There is no demonstrated pleural abnormality. Normal size heart. Normal mediastinum and damian. Normal visualized pulmonary arteries. There is atherosclerotic calcification of the aortic arch with tortuosity. There are diffuse degenerative changes of the visualized thoracic spine. There are degenerative changes of both shoulders. There is no demonstrated abnormality of the visualized soft tissue structures of the upper abdomen. RAD/Chest PA and Lateral IMPRESSION: Residual right basilar airspace consolidation possibly representing pneumonia. Electronically Signed: Tania Ramires MD at 6:50 EDT , Service support ,
[2018-11-17 05:44] LABS: Prothrombin Time (Protime)PT. 42.5 SECONDS (11.7-14.9)
[2018-11-17] MEDS: Benztropine 2 MG Tablet 0.5 MG PO ×2 (05:45→14:31)
[2018-11-17] MEDS: busPIRone 15 MG TABLET PO ×2 (05:45→14:31)
[2018-11-17 05:59] LABS: International Normalized Ratio 4.4
[2018-11-17] MEDS: Ipratropium/Albuterol Sulfate 3 ML AMPUL.NEB INHALATION (06:50)
[2018-11-17] MEDS: guaiFENesin 1,200 MG Tablet 1200 MG PO (09:36)
[2018-11-17] MEDS: Loratadine 10 MG Tablet PO (09:36)
[2018-11-17] MEDS: Metoprolol Tartrate 25 MG Tablet 12.5 MG PO (09:36)
[2018-11-17] MEDS: Clopidogrel Bisulfate 75 MG Tablet PO (09:36)
[2018-11-17] MEDS: Pantoprazole Sodium 40 MG Tablet PO (09:37)
[2018-11-17] MEDS: FLUoxetine 20 MG Capsule 40 MG PO (09:37)
[2018-11-17] MEDS: RisperiDONE 2 MG Tablet 4 MG PO (09:37)
[2018-11-17] MEDS: buPROPion (XL) 150 MG TABLET.XL PO (09:38)
--- NOTE | 2018-11-17 12:13 | PN_ITS ---
Patient Problems: Active and Suspected Problems (Last Reviewed 11/16/18 @ 08:12 by Jose Lepe DO) Community acquired pneumonia (Acute) COPD with exacerbation (Acute) Aspiration pneumonia (Suspected) Hypotension (Acute) suspect due to dehydration Dehydration (Acute) Chest pain, unspecified (Acute) Severe sepsis (Acute) Respiratory insufficiency (Acute) Subjective: Day #2 Zosyn The patient is a 62 year old M with a past medical history of hypertension, bipolar disorder, coronary artery disease with history of CABG and PCI, bicuspid aortic valve status post mechanical aortic valve replacement, chronic anticoagulation with warfarin, GERD, peptic ulcer disease, remote CVA, obstructive sleep apnea noncompliant with CPAP, COPD and obesity who presented to the emergency department at [facility] on 11/16/2018 complaining of awakening suddenly at 3 AM with shortness of breath and shaking. He was diagnosed with RLL pneumonia which I suspect may be due to aspiration related to GERD. He was admitted to the hospital and started on Zosyn. T-max is 101.9 while in the ER. He has been afebrile since arriving on PCU. Vital signs are stable. He is 97% saturated on room air. Good oral intake All lab was personally reviewed. INR is 4.4 today despite giving a decreased dose yesterday of 2.5 (25% of his normal dose) Sputum had 1+ white blood cells with no organisms. Legionella and streptococcal antigens in the urine were negative. Respiratory panel was negative. - Physical Exam Vital Signs Temp Pulse Resp BP Pulse Ox 97.9 F 70 18 135/62 H 97 11/17/18 09:30 11/17/18 11:23 11/17/18 09:30 11/17/18 09:36 11/17/18 09:30 Oxygen Flow Rate (L/min) 2 Oxygen Delivery Method Room Air Weight: 270 lb 4.587 oz Body Mass Index (BMI) 35.6 Intake and Output for Last 24 Hours 11/15/18 11/16/18 11/17/18 23:59 23:59 23:59 Intake Total 1598 / 1598 2074 Balance 1598 / 1598 2074 Microbiology Past 72 Hours 11/16/18 14:45 Gram Stain - Final Sputum, Expectorated/Coughed 11/16/18 10:18 Respiratory Panel (PCR) - Final Mucosa - Nose 11/16/18 12:10 Streptococcus pneumoniae Antigen (M - Final Urine, Clean Catch 11/16/18 12:10 Legionella Antigen - Final Urine, Clean Catch 11/16/18 07:07 Influenza Types A,B Direct FA (ELVIA) - Final Mucosa - Nose Laboratory Tests Past 24 Hrs 11/16/18 11/16/18 11/17/18 10:25 12:10 04:55 PT 42.5 H INR 4.4 H* Urine Color Yellow Urine Clarity Clear Urine pH 6.0 Ur Specific [place] 1.010 Urine Protein Negative Urine Glucose (UA) Normal Urine Ketones Negative Urine Occult Blood 10 H Urine Nitrite Negative Urine Bilirubin Negative Urine Urobilinogen Normal Ur Leukocyte Esterase Negative MRSA (PCR) Negative Medical Necessity - Tobacco Use Smoking Status: Former smoker Tobacco Use: Non-smoker Assessment/Plan All Active Problems (Last Reviewed 11/16/18 @ 08:12 by Jose Lepe DO) Community acquired pneumonia (Acute) COPD with exacerbation (Acute) Hypotension (Acute) Dehydration (Acute) Chest pain, unspecified (Acute) Severe sepsis (Acute) Respiratory insufficiency (Acute) Chest pain, unspecified (Resolved)
--- NOTE | 2018-11-17 14:31 | DCINST_ITS ---
- Discharge Diagnoses Current Active Problems: Current Active and Chronic Problems (Last Reviewed 11/16/18 @ 08:12 by Jose Lepe DO) Community acquired pneumonia (Acute) COPD with exacerbation (Acute) Hypotension (Acute) suspect due to dehydration Dehydration (Acute) Dementia (Chronic) Bipolar disorder (Chronic) GERD (gastroesophageal reflux disease) (Chronic) CVA (cerebral vascular accident) (Chronic) PUD (peptic ulcer disease) (Chronic) Obesity (BMI 30-39.9) (Chronic) Chest pain, unspecified (Acute) Severe sepsis (Acute) Respiratory insufficiency (Acute) You will use the following diet at home:: Other - Resume previous diet Your food should be the consistency of: Regular Your liquids should be the consistency of: Regular/Thin Discharge Activity: Return to Normal Activity, - - Do not lie down for 2 hours after eating. Call your doctor if you observe: Fever of 101 or Higher, Shortness of breath, Dizziness, Fainting spells, Swelling in the ankles, Chest pain, - - Call your PCP if severe diarrhea ( > 5 stools a day), painful sores in the mouth, painful swallowing, rash or itching. Taking a probiotic such as Lactobacillus or Kefir can help with loose stools while taking antibiotics. Instructions: Lifestyle Changes for Controlling GERD, What Is GERD? Additional Instructions: I think the reason you woke up suddenly short of breath and why you got pneumonia when you were fine when you went to bed is that you had reflux and then aspirated into the trachea/lungs. You should not lie down for at least 2 hours after eating. I am sending you home on an antibiotic that you will take for 7 days. I advise you to use the aewrosol machine every 4 hours while awake for the next 3-4 days and then just as needed. The INR is too high. I only gave you 2.5 mg yesterday and it is still high so I want you to skip the warfarin today and then restart on Sunday. Allergies/Adverse Reactions: Allergies iodine Allergy (Verified 11/16/18 05:52) Other low BP- does fine with premedication contrast dye Allergy (Uncoded 11/16/18 05:52) Shortness of breath Medications to take at Discharge Benztropine [Cogentin] 0.5 mg PO TID 10/20/15 Clopidogrel Bisulfate [Plavix] 75 mg PO DAILY 10/20/15 Risperidone [Risperdal] 4 mg PO BID 10/20/15 Pantoprazole Sodium [Protonix] 40 mg PO BID 02/01/17 Tamsulosin HCl [Flomax] 0.4 mg PO QHS 02/01/17 Fluticasone/Salmeterol [Advair 250/50 Mcg Diskus] 1 puff INHALATION BID 05/25/17 bupropion HCl XL 150 mg 24 hr tablet, extended release 150 mg PO QAM 09/12/18 buspirone 10 mg tablet 15 mg PO TID 09/12/18 cetirizine 10 mg tablet 10 mg PO DAILY 09/12/18 fluoxetine 60 mg tablet 40 mg PO DAILY 09/12/18 naltrexone 50 mg tablet 50 mg PO DAILY 09/12/18 potassium chloride ER 10 mEq capsule,extended release 10 meq PO DAILY 09/12/18 acapella See Rx Instructions .ROUTE .MEDSUPPLY #1 ea 09/16/18 metoprolol tartrate 25 mg tablet 12.5 mg PO BID #30 tab 09/17/18 Albuterol Sulfate [Ventolin Hfa] 2 puff INHALATION Q4H 10/03/18 Donepezil HCl 10 mg PO QHS 10/03/18 albuterol sulfate 2.5 mg/3 mL (0.083 %) solution for nebulization 2.5 mg INHALATION Q4H PRN #180 ml 10/23/18 Warfarin Sodium [Coumadin] 10 mg PO QHS 11/16/18 Amox/Clavulanate Tablet [Augmentin Tablet] 875 mg PO Q12H #14 tablet 11/17/18 Guaifenesin [Mucinex] 1,200 mg PO BID #20 tab 11/17/18 The following prescriptions were given: Amox/Clavulanate Tablet [Augmentin Tablet] 875 mg PO Q12H #14 tablet Guaifenesin [Mucinex] 1,200 mg PO BID #20 tab Primary Care Physician: Bartolo Mitchell DO [Primary Care Provider] - Please follow up with your Primary Care Physician in: Sunday or SUN Test Results: Test results from this visit will be discussed in further detail at your follow- up appointment, if applicable. Proposed Discharge Date: 11/17/18
--- NOTE | 2018-11-17 14:42 | PCM.DC.SUM ---
Discharge Date and Diagnosis Date of Admission: 11/16/18 Date of Discharge: 11/17/18 - Primary Discharge Diagnosis Active and Suspected Problems (Last Reviewed 11/16/18 @ 08:12 by Jose Lepe DO) Aspiration Pneumonia COPD with exacerbation (Acute) Hypotension (Acute) due to dehydration Dehydration (Acute) Chest pain, unspecified (Acute) Severe sepsis (Acute) - ruled out Supratherapeutic INR - Secondary Discharge Diagnosis Chronic Problems (Last Reviewed 11/16/18 @ 08:12 by Jose Lepe DO) Dementia (Chronic) Bipolar disorder (Chronic) GERD (gastroesophageal reflux disease) (Chronic) CVA (cerebral vascular accident) (Chronic) PUD (peptic ulcer disease) (Chronic) Obesity (BMI 30-39.9) (Chronic) Stage 1 mild COPD by GOLD classification (Chronic) Lung nodule (Chronic) Repeat CT of the chest due September 12, 2019 JAMES (obstructive sleep apnea) (Chronic) AHI 16.7 - noncompliant FDC (current) use of anticoagulants (Chronic) Nonrheumatic aortic (valve) stenosis with insufficiency (Chronic) Atherosclerosis of coronary artery of [place] heart without angina pectoris (Chronic) CABG MEDINA-LAD, SVG-D1, SVG-OM1, SVG-PDA 01/2003 POBA-Anastomosis site of the MEDINA-LAD 06/16/2004 [facility] [id number] 03/2005 [id number] 07/15/2012 @ [facility] History of coronary artery stent placement (Chronic) POBA-Anastomosis site of the MEDINA-LAD 06/16/2004 [facility] [id number] 03/2005 @ [facility] [id number] 07/15/2012 @ [facility] Presence of aortocoronary bypass graft (Chronic ~01/2003) MEDINA-LAD, SVG-D1, SVG-OM1, SVG-PDA 01/2003 @ [facility] H/O aortic valve replacement (Chronic ~09/2004) Mechanical, on Coumadin therapy 09/2004 [facility] @ [facility] Hypertension (Chronic) Hospital Course and Treatment Imaging Results: Clinical Impression(s) from Imaging Studies Chest X-Ray 11/16/18 06:05 IMPRESSION: Heterogeneous right basilar airspace consolidation suggesting pneumonia. Electronically Signed: Tania Ramires MD at 6:38 EDT , Service support , Chest X-Ray 11/17/18 05:15 IMPRESSION: Residual right basilar airspace consolidation possibly representing pneumonia. Electronically Signed: Tania Ramires MD at 6:50 EDT , Service support , Laboratory Tests 11/17/18 11/16/18 11/16/18 Range/Units 04:55 12:10 11:02 WBC (4.4-11.0) K/mm3 RBC (4.6-6.2) M/mm3 Hgb (13.0-16.5) g/dl Hct (40-54) % MCV (80-94) fL MCH (27.0-32.0) pg MCHC (32-36) g/gl RDW (11.6-14.6) % RDW Differential (35.1-43.9) fl Plt Count (150-450) K/mm3 MPV (6.2-12.0) fl Immature Gran % (Auto) (0.0-0.9) % Neut % (Auto) (47-70) % Lymph % (Auto) (19-41) % [place] % (Auto) (0-10) % Eos % (Auto) (0-5) % Baso % (Auto) (0-1) % Absolute Neuts (auto) (2.0-7.7) X10^3/uL Absolute Lymphs (auto) (0.83-4.51) X10^3/ul Total Counted PT 42.5 H (11.7-14.9) SECONDS INR 4.4 H* D-Dimer Quant (PE/DVT) Sodium (136-145) mmol/L Potassium (3.5-5.1) mmol/L Chloride (98-107) mmol/L Carbon Dioxide (21.0-32.0) mmol/L Anion Gap (5-15) BUN (7-18) mg/dL Creatinine (0.70-1.30) mg/dL Estim Creat Clear Calc ml/min Est GFR (MDRD) Af Amer (>60) mL/min Est GFR (MDRD) Non-Af (>60) mL/min BUN/Creatinine Ratio (10-20) RATIO Glucose (74-106) mg/dL Lactic Acid 2.3 H (0.4-2.0) mmol/L Calcium (8.5-10.1) mg/dL Phosphorus (2.5-4.9) mg/dL Magnesium (1.6-2.6) mg/dL Total Bilirubin (0.20-1.00) mg/dL Direct Bilirubin (0.00-0.30) mg/dL AST (15-37) U/L ALT (16-61) U/L Alkaline Phosphatase (45-117) U/L Troponin I (<0.045) ng/mL B-Natriuretic Peptide (0-100) pg/mL Total Protein (6.4-8.2) g/dL Albumin (3.2-5.0) g/dL Globulin (2.2-4.2) g/dL Urine Color Yellow (Yellow) Urine Clarity Clear (Clear) Urine pH 6.0 (5.0 - 8.0) Ur Specific [place] 1.010 (1.002-1.030) Urine Protein Negative (Negative) mg/dl Urine Glucose (UA) Normal (Normal) mg/dl Urine Ketones Negative (Negative) mg/dl Urine Occult Blood 10 H (Negative) /ul Urine Nitrite Negative (Negative) Urine Bilirubin Negative (Negative) mg/dL Urine Urobilinogen Normal (Normal) mg/dl Ur Leukocyte Esterase Negative (Negative) /ul MRSA (PCR) (Negative) 11/16/18 11/16/18 11/16/18 Range/Units 10:25 06:20 05:54 WBC (4.4-11.0) K/mm3 RBC (4.6-6.2) M/mm3 Hgb (13.0-16.5) g/dl Hct (40-54) % MCV (80-94) fL MCH (27.0-32.0) pg MCHC (32-36) g/gl RDW (11.6-14.6) % RDW Differential (35.1-43.9) fl Plt Count (150-450) K/mm3 MPV (6.2-12.0) fl Immature Gran % (Auto) (0.0-0.9) % Neut % (Auto) (47-70) % Lymph % (Auto) (19-41) % [place] % (Auto) (0-10) % Eos % (Auto) (0-5) % Baso % (Auto) (0-1) % Absolute Neuts (auto) (2.0-7.7) X10^3/uL Absolute Lymphs (auto) (0.83-4.51) X10^3/ul Total Counted PT (11.7-14.9) SECONDS INR D-Dimer Quant (PE/DVT) Sodium (136-145) mmol/L Potassium (3.5-5.1) mmol/L Chloride (98-107) mmol/L Carbon Dioxide (21.0-32.0) mmol/L Anion Gap (5-15) BUN (7-18) mg/dL Creatinine (0.70-1.30) mg/dL Estim Creat Clear Calc ml/min Est GFR (MDRD) Af Amer (>60) mL/min Est GFR (MDRD) Non-Af (>60) mL/min BUN/Creatinine Ratio (10-20) RATIO Glucose (74-106) mg/dL Lactic Acid 2.2 H (0.4-2.0) mmol/L Calcium (8.5-10.1) mg/dL Phosphorus 1.1 L* (2.5-4.9) mg/dL Magnesium 1.6 (1.6-2.6) mg/dL Total Bilirubin 0.50 (0.20-1.00) mg/dL Direct Bilirubin 0.13 (0.00-0.30) mg/dL AST 23 (15-37) U/L ALT 32 (16-61) U/L Alkaline Phosphatase 153 H (45-117) U/L Troponin I (<0.045) ng/mL B-Natriuretic Peptide (0-100) pg/mL Total Protein 6.7 (6.4-8.2) g/dL Albumin 3.3 (3.2-5.0) g/dL Globulin 3.4 (2.2-4.2) g/dL Urine Color (Yellow) Urine Clarity (Clear) Urine pH (5.0 - 8.0) Ur Specific [place] (1.002-1.030) Urine Protein (Negative) mg/dl Urine Glucose (UA) (Normal) mg/dl Urine Ketones (Negative) mg/dl Urine Occult Blood (Negative) /ul Urine Nitrite (Negative) Urine Bilirubin (Negative) mg/dL Urine Urobilinogen (Normal) mg/dl Ur Leukocyte Esterase (Negative) /ul MRSA (PCR) Negative (Negative) 11/16/18 11/16/18 11/16/18 Range/Units 05:54 05:54 05:54 WBC (4.4-11.0) K/mm3 RBC (4.6-6.2) M/mm3 Hgb (13.0-16.5) g/dl Hct (40-54) % MCV (80-94) fL MCH (27.0-32.0) pg MCHC (32-36) g/gl RDW (11.6-14.6) % RDW Differential (35.1-43.9) fl Plt Count (150-450) K/mm3 MPV (6.2-12.0) fl Immature Gran % (Auto) (0.0-0.9) % Neut % (Auto) (47-70) % Lymph % (Auto) (19-41) % [place] % (Auto) (0-10) % Eos % (Auto) (0-5) % Baso % (Auto) (0-1) % Absolute Neuts (auto) (2.0-7.7) X10^3/uL Absolute Lymphs (auto) (0.83-4.51) X10^3/ul Total Counted PT 36.4 H (11.7-14.9) SECONDS INR 3.6 H* D-Dimer Quant (PE/DVT) Cancelled Sodium 141 (136-145) mmol/L Potassium 4.2 (3.5-5.1) mmol/L Chloride 110 H (98-107) mmol/L Carbon Dioxide 22.0 (21.0-32.0) mmol/L Anion Gap 9 (5-15) BUN 13 (7-18) mg/dL Creatinine 1.20 (0.70-1.30) mg/dL Estim Creat Clear Calc 73.06 ml/min Est GFR (MDRD) Af Amer 79 (>60) mL/min Est GFR (MDRD) Non-Af 65 (>60) mL/min BUN/Creatinine Ratio 10.8 (10-20) RATIO Glucose 158 H (74-106) mg/dL Lactic Acid (0.4-2.0) mmol/L Calcium 7.7 L (8.5-10.1) mg/dL Phosphorus (2.5-4.9) mg/dL Magnesium (1.6-2.6) mg/dL Total Bilirubin (0.20-1.00) mg/dL Direct Bilirubin (0.00-0.30) mg/dL AST (15-37) U/L ALT (16-61) U/L Alkaline Phosphatase (45-117) U/L Troponin I < 0.015 (<0.045) ng/mL B-Natriuretic Peptide 75.2 (0-100) pg/mL Total Protein (6.4-8.2) g/dL Albumin (3.2-5.0) g/dL Globulin (2.2-4.2) g/dL Urine Color (Yellow) Urine Clarity (Clear) Urine pH (5.0 - 8.0) Ur Specific [place] (1.002-1.030) Urine Protein (Negative) mg/dl Urine Glucose (UA) (Normal) mg/dl Urine Ketones (Negative) mg/dl Urine Occult Blood (Negative) /ul Urine Nitrite (Negative) Urine Bilirubin (Negative) mg/dL Urine Urobilinogen (Normal) mg/dl Ur Leukocyte Esterase (Negative) /ul MRSA (PCR) (Negative) 11/16/18 Range/Units 05:54 WBC 6.4 (4.4-11.0) K/mm3 RBC 4.46 L (4.6-6.2) M/mm3 Hgb 14.8 (13.0-16.5) g/dl Hct 43.6 (40-54) % MCV 97.8 H (80-94) fL MCH 33.2 H (27.0-32.0) pg MCHC 33.9 (32-36) g/gl RDW 13.6 (11.6-14.6) % RDW Differential 47.4 H (35.1-43.9) fl Plt Count 209 (150-450) K/mm3 MPV 9.2 (6.2-12.0) fl Immature Gran % (Auto) 0.300 (0.0-0.9) % Neut % (Auto) 81.5 H (47-70) % Lymph % (Auto) 9.7 L (19-41) % [place] % (Auto) 7.3 (0-10) % Eos % (Auto) 0.9 (0-5) % Baso % (Auto) 0.3 (0-1) % Absolute Neuts (auto) 5.2 (2.0-7.7) X10^3/uL Absolute Lymphs (auto) 0.62 L (0.83-4.51) X10^3/ul Total Counted Not Reportable PT (11.7-14.9) SECONDS INR D-Dimer Quant (PE/DVT) Sodium (136-145) mmol/L Potassium (3.5-5.1) mmol/L Chloride (98-107) mmol/L Carbon Dioxide (21.0-32.0) mmol/L Anion Gap (5-15) BUN (7-18) mg/dL Creatinine (0.70-1.30) mg/dL Estim Creat Clear Calc ml/min Est GFR (MDRD) Af Amer (>60) mL/min Est GFR (MDRD) Non-Af (>60) mL/min BUN/Creatinine Ratio (10-20) RATIO Glucose (74-106) mg/dL Lactic Acid (0.4-2.0) mmol/L Calcium (8.5-10.1) mg/dL Phosphorus (2.5-4.9) mg/dL Magnesium (1.6-2.6) mg/dL Total Bilirubin (0.20-1.00) mg/dL Direct Bilirubin (0.00-0.30) mg/dL AST (15-37) U/L ALT (16-61) U/L Alkaline Phosphatase (45-117) U/L Troponin I (<0.045) ng/mL B-Natriuretic Peptide (0-100) pg/mL Total Protein (6.4-8.2) g/dL Albumin (3.2-5.0) g/dL Globulin (2.2-4.2) g/dL Urine Color (Yellow) Urine Clarity (Clear) Urine pH (5.0 - 8.0) Ur Specific [place] (1.002-1.030) Urine Protein (Negative) mg/dl Urine Glucose (UA) (Normal) mg/dl Urine Ketones (Negative) mg/dl Urine Occult Blood (Negative) /ul Urine Nitrite (Negative) Urine Bilirubin (Negative) mg/dL Urine Urobilinogen (Normal) mg/dl Ur Leukocyte Esterase (Negative) /ul MRSA (PCR) (Negative) Microbiology 11/16/18 14:45 Sputum, Expectorated/Coughed Gram Stain - Final 11/16/18 14:45 Sputum, Expectorated/Coughed Respiratory Culture - Preliminary Appears to be normal respiratory kartik. Further studies to follow. 11/16/18 10:18 Mucosa - Nose Respiratory Panel (PCR) - Final 11/16/18 12:10 Urine, Clean Catch Streptococcus pneumoniae Antigen (M - Final 11/16/18 12:10 Urine, Clean Catch Legionella Antigen - Final 11/16/18 07:07 Mucosa - Nose Influenza Types A,B Direct FA (ELVIA) - Final none Operations: None Procedures: None Summary of Care Provided: The patient is a 62 year old M with a past medical history of hypertension, bipolar disorder, coronary artery disease with history of CABG and PCI, bicuspid aortic valve status post mechanical aortic valve replacement, chronic anticoagulation with warfarin, GERD, peptic ulcer disease, remote CVA, obstructive sleep apnea noncompliant with CPAP, COPD and obesity who presented to the emergency department at [facility] on 11/16/2018 complaining of awakening suddenly at 3 AM with shortness of breath and shaking. He states he felt well when he went to bed and denies any recent fever, chills, nausea, vomiting, cough, wheezing. He used his inhalers and then his nebulizer without significant improvement and he came to the emergency room. He denies any sick contacts. He did not have an influenza shot this year but he has had Pneumovax in the past. Vital signs of presentation to the emergency department were temperature 98.3, pulse rate 72, blood pressure 141/82, respiratory rate 14 and he was 95-97% saturated on room air. Respiratory rate then went up to 28. The blood pressure when I was in the room examining him was 80/50 and he complained of lightheadedness. CBC showed a white blood cell count of 6.4 with a left shift. Hemoglobin and platelets were within normal limits. INR was supratherapeutic at 3.6. BMP was unremarkable with the exception of creatinine of 1.2 which is up from 0.95 in early October. Lactic acid was 2.2 and troponin was less than 0.015. Chest x-ray showed right lower lobe pneumonia. He was given a DuoNeb aerosol in the emergency room and his breathing improved. At the time of my examination he had no conversational dyspnea, was not tachypneic and had no accessory muscle use. He was not wheezing. Influenza swab in the emergency room was negative. Blood cultures were sent. He was admitted to the hospital with a diagnosis of pneumonia and I suspect this may be secondary to aspiration due to it's very sudden onset and the face that he felt well when he went to bed and it awoke him suddenly from sleep. He has a known hx of GERD. He was admitted to the PCU on Zosyn. The following day he was AF with normal vital signs. He was 97% saturated on room air. He denied cough and also denies shortness of breath. Auscultation of the lungs revealed them to be clear to auscultation but diminished. There were no wheezes and no rails. Chest x-ray showed resolving right lower lobe infiltrate. Telemetry showed normal sinus rhythm and sinus tachycardia with bundle branch block. He was discharged home on Augmentin 875 mg twice daily. He was instructed to not take Coumadin tonight but resume on 11/18/2018. He will follow-up with his primary care physician in the next 2-3 days for a repeat PT/INR. This note was generated with [employer] dictation software. It may contain incorrect words, spelling, and punctuation that were not noted in checking the note before signing. - Physical Exam Vital Signs Temp Pulse Resp BP Pulse Ox 97.9 F 70 20 H 135/62 H 97 11/17/18 09:30 11/17/18 11:23 11/17/18 11:12 11/17/18 09:36 11/17/18 09:30 Oxygen Flow Rate (L/min) 2 Oxygen Delivery Method Room Air Weight: 270 lb 4.587 oz Body Mass Index (BMI) 35.6 Intake and Output for Last 24 Hours 11/15/18 11/16/18 11/17/18 23:59 23:59 23:59 Intake Total 1598 / 1598 2795 / 2795 Balance 1598 / 1598 2795 / 2795 Microbiology Past 72 Hours 11/16/18 14:45 Gram Stain - Final Sputum, Expectorated/Coughed Respiratory Culture - Preliminary Appears to be normal respiratory kartik. Further studies to follow. 11/16/18 10:18 Respiratory Panel (PCR) - Final Mucosa - Nose 11/16/18 12:10 Streptococcus pneumoniae Antigen (M - Final Urine, Clean Catch 11/16/18 12:10 Legionella Antigen - Final Urine, Clean Catch 11/16/18 07:07 Influenza Types A,B Direct FA (ELVIA) - Final Mucosa - Nose Laboratory Tests Past 24 Hrs 11/17/18 04:55 PT 42.5 H INR 4.4 H* Discharge Activity: Return to Normal Activity, - - Do not lie down for 2 hours after eating. Call your doctor if you observe: Fever of 101 or Higher, Shortness of breath, Dizziness, Fainting spells, Swelling in the ankles, Chest pain, - - Call your PCP if severe diarrhea ( > 5 stools a day), painful sores in the mouth, painful swallowing, rash or itching. Taking a probiotic such as Lactobacillus or Kefir can help with loose stools while taking antibiotics. Home Medications: Medications to take at Discharge Benztropine [Cogentin] 0.5 mg PO TID 10/20/15 Clopidogrel Bisulfate [Plavix] 75 mg PO DAILY 10/20/15 Risperidone [Risperdal] 4 mg PO BID 10/20/15 Pantoprazole Sodium [Protonix] 40 mg PO BID 02/01/17 Tamsulosin HCl [Flomax] 0.4 mg PO QHS 02/01/17 Fluticasone/Salmeterol [Advair 250/50 Mcg Diskus] 1 puff INHALATION BID 05/25/17 bupropion HCl XL 150 mg 24 hr tablet, extended release 150 mg PO QAM 09/12/18 buspirone 10 mg tablet 15 mg PO TID 09/12/18 cetirizine 10 mg tablet 10 mg PO DAILY 09/12/18 fluoxetine 60 mg tablet 40 mg PO DAILY 09/12/18 naltrexone 50 mg tablet 50 mg PO DAILY 09/12/18 potassium chloride ER 10 mEq capsule,extended release 10 meq PO DAILY 09/12/18 acapella See Rx Instructions .ROUTE .MEDSUPPLY #1 ea 01/14/19 metoprolol tartrate 25 mg tablet 12.5 mg PO BID #30 tab 09/17/18 Albuterol Sulfate [Ventolin Hfa] 2 puff INHALATION Q4H 10/03/18 Donepezil HCl 10 mg PO QHS 10/03/18 albuterol sulfate 2.5 mg/3 mL (0.083 %) solution for nebulization 2.5 mg INHALATION Q4H PRN #180 ml 10/23/18 Warfarin Sodium [Coumadin] 10 mg PO QHS 11/16/18 Amox/Clavulanate Tablet [Augmentin Tablet] 875 mg PO Q12H #14 tablet 11/17/18 Guaifenesin [Mucinex] 1,200 mg PO BID #20 tab 11/17/18 Following Prescrptions Were Given to Patient: Amox/Clavulanate Tablet [Augmentin Tablet] 875 mg PO Q12H #14 tablet Guaifenesin [Mucinex] 1,200 mg PO BID #20 tab Primary Care Physician: Bartolo Mitchell DO [Primary Care Provider] - Please follow up with your Primary Care Physician in: Sunday or SUN Patient Instructions: What Is GERD?, Lifestyle Changes for Controlling GERD Disposition: Home Minutes spent on discharge:: 30 Patient Condition:: Good Medical Necessity - Tobacco Use Smoking Status: Former smoker Tobacco Use: Non-smoker Meaningful Use Info Meaningful Use Diagnoses (Choose all that apply): None applicable Code Visit Inpatient E&M: 88196 Disch Hosp
--- NOTE | 2018-11-17 14:46 | DS.PCM_ITS ---
Discharge Date and Diagnosis Date of Admission: 11/16/18 Date of Discharge: 11/17/18 - Primary Discharge Diagnosis Active and Suspected Problems (Last Reviewed 11/16/18 @ 08:12 by Jose Lepe DO) Aspiration Pneumonia COPD with exacerbation (Acute) Hypotension (Acute) due to dehydration Dehydration (Acute) Chest pain, unspecified (Acute) Severe sepsis (Acute) - ruled out Supratherapeutic INR - Secondary Discharge Diagnosis Chronic Problems (Last Reviewed 11/16/18 @ 08:12 by Jose Lepe DO) Dementia (Chronic) Bipolar disorder (Chronic) GERD (gastroesophageal reflux disease) (Chronic) CVA (cerebral vascular accident) (Chronic) PUD (peptic ulcer disease) (Chronic) Obesity (BMI 30-39.9) (Chronic) Stage 1 mild COPD by GOLD classification (Chronic) Lung nodule (Chronic) Repeat CT of the chest due September 12, 2019 JAMES (obstructive sleep apnea) (Chronic) AHI 16.7 - noncompliant FPC (current) use of anticoagulants (Chronic) Nonrheumatic aortic (valve) stenosis with insufficiency (Chronic) Atherosclerosis of coronary artery of [place] heart without angina pectoris (Chronic) CABG MEDINA-LAD, SVG-D1, SVG-OM1, SVG-PDA 01/2003 POBA-Anastomosis site of the MEDINA-LAD 06/16/2004 [facility] [id number] 03/2005 [id number]-[id number]-CVP-D1 07/15/2012 @ [facility] History of coronary artery stent placement (Chronic) POBA-Anastomosis site of the MEDINA-LAD 06/16/2004 [facility] [id number]-[id number] 03/2005 @ [facility] [id number]-TPL-BWL-D1 07/15/2012 @ [facility] Presence of aortocoronary bypass graft (Chronic ~01/2003) MEDINA-LAD, SVG-D1, SVG-OM1, SVG-PDA 01/2003 @ [facility] H/O aortic valve replacement (Chronic ~09/2004) Mechanical, on Coumadin therapy 09/2004 [facility]ve @ [facility] Hypertension (Chronic) Hospital Course and Treatment Imaging Results: Clinical Impression(s) from Imaging Studies Chest X-Ray 11/16/18 06:05 IMPRESSION: Heterogeneous right basilar airspace consolidation suggesting pneumonia. Electronically Signed: Tania Ramires MD at 6:38 EDT , Service support , Chest X-Ray 11/17/18 05:15 IMPRESSION: Residual right basilar airspace consolidation possibly representing pneumonia. Electronically Signed: Tania Ramires MD at 6:50 EDT , Service support , Laboratory Tests 11/17/18 11/16/18 11/16/18 Range/Units 04:55 12:10 11:02 WBC (4.4-11.0) K/mm3 RBC (4.6-6.2) M/mm3 Hgb (13.0-16.5) g/dl Hct (40-54) % MCV (80-94) fL MCH (27.0-32.0) pg MCHC (32-36) g/gl RDW (11.6-14.6) % RDW Differential (35.1-43.9) fl Plt Count (150-450) K/mm3 MPV (6.2-12.0) fl Immature Gran % (Auto) (0.0-0.9) % Neut % (Auto) (47-70) % Lymph % (Auto) (19-41) % Reagan % (Auto) (0-10) % Eos % (Auto) (0-5) % Baso % (Auto) (0-1) % Absolute Neuts (auto) (2.0-7.7) X10^3/uL Absolute Lymphs (auto) (0.83-4.51) X10^3/ul Total Counted PT 42.5 H (11.7-14.9) SECONDS INR 4.4 H* D-Dimer Quant (PE/DVT) Sodium (136-145) mmol/L Potassium (3.5-5.1) mmol/L Chloride (98-107) mmol/L Carbon Dioxide (21.0-32.0) mmol/L Anion Gap (5-15) BUN (7-18) mg/dL Creatinine (0.70-1.30) mg/dL Estim Creat Clear Calc ml/min Est GFR (MDRD) Af Amer (>60) mL/min Est GFR (MDRD) Non-Af (>60) mL/min BUN/Creatinine Ratio (10-20) RATIO Glucose (74-106) mg/dL Lactic Acid 2.3 H (0.4-2.0) mmol/L Calcium (8.5-10.1) mg/dL Phosphorus (2.5-4.9) mg/dL Magnesium (1.6-2.6) mg/dL Total Bilirubin (0.20-1.00) mg/dL Direct Bilirubin (0.00-0.30) mg/dL AST (15-37) U/L ALT (16-61) U/L Alkaline Phosphatase (45-117) U/L Troponin I (<0.045) ng/mL B-Natriuretic Peptide (0-100) pg/mL Total Protein (6.4-8.2) g/dL Albumin (3.2-5.0) g/dL Globulin (2.2-4.2) g/dL Urine Color Yellow (Yellow) Urine Clarity Clear (Clear) Urine pH 6.0 (5.0 - 8.0) Ur Specific Bishop 1.010 (1.002-1.030) Urine Protein Negative (Negative) mg/dl Urine Glucose (UA) Normal (Normal) mg/dl Urine Ketones Negative (Negative) mg/dl Urine Occult Blood 10 H (Negative) /ul Urine Nitrite Negative (Negative) Urine Bilirubin Negative (Negative) mg/dL Urine Urobilinogen Normal (Normal) mg/dl Ur Leukocyte Esterase Negative (Negative) /ul MRSA (PCR) (Negative) 11/16/18 11/16/18 11/16/18 Range/Units 10:25 06:20 05:54 WBC (4.4-11.0) K/mm3 RBC (4.6-6.2) M/mm3 Hgb (13.0-16.5) g/dl Hct (40-54) % MCV (80-94) fL MCH (27.0-32.0) pg MCHC (32-36) g/gl RDW (11.6-14.6) % RDW Differential (35.1-43.9) fl Plt Count (150-450) K/mm3 MPV (6.2-12.0) fl Immature Gran % (Auto) (0.0-0.9) % Neut % (Auto) (47-70) % Lymph % (Auto) (19-41) % Reagan % (Auto) (0-10) % Eos % (Auto) (0-5) % Baso % (Auto) (0-1) % Absolute Neuts (auto) (2.0-7.7) X10^3/uL Absolute Lymphs (auto) (0.83-4.51) X10^3/ul Total Counted PT (11.7-14.9) SECONDS INR D-Dimer Quant (PE/DVT) Sodium (136-145) mmol/L Potassium (3.5-5.1) mmol/L Chloride (98-107) mmol/L Carbon Dioxide (21.0-32.0) mmol/L Anion Gap (5-15) BUN (7-18) mg/dL Creatinine (0.70-1.30) mg/dL Estim Creat Clear Calc ml/min Est GFR (MDRD) Af Amer (>60) mL/min Est GFR (MDRD) Non-Af (>60) mL/min BUN/Creatinine Ratio (10-20) RATIO Glucose (74-106) mg/dL Lactic Acid 2.2 H (0.4-2.0) mmol/L Calcium (8.5-10.1) mg/dL Phosphorus 1.1 L* (2.5-4.9) mg/dL Magnesium 1.6 (1.6-2.6) mg/dL Total Bilirubin 0.50 (0.20-1.00) mg/dL Direct Bilirubin 0.13 (0.00-0.30) mg/dL AST 23 (15-37) U/L ALT 32 (16-61) U/L Alkaline Phosphatase 153 H (45-117) U/L Troponin I (<0.045) ng/mL B-Natriuretic Peptide (0-100) pg/mL Total Protein 6.7 (6.4-8.2) g/dL Albumin 3.3 (3.2-5.0) g/dL Globulin 3.4 (2.2-4.2) g/dL Urine Color (Yellow) Urine Clarity (Clear) Urine pH (5.0 - 8.0) Ur Specific Bishop (1.002-1.030) Urine Protein (Negative) mg/dl Urine Glucose (UA) (Normal) mg/dl Urine Ketones (Negative) mg/dl Urine Occult Blood (Negative) /ul Urine Nitrite (Negative) Urine Bilirubin (Negative) mg/dL Urine Urobilinogen (Normal) mg/dl Ur Leukocyte Esterase (Negative) /ul MRSA (PCR) Negative (Negative) 11/16/18 11/16/18 11/16/18 Range/Units 05:54 05:54 05:54 WBC (4.4-11.0) K/mm3 RBC (4.6-6.2) M/mm3 Hgb (13.0-16.5) g/dl Hct (40-54) % MCV (80-94) fL MCH (27.0-32.0) pg MCHC (32-36) g/gl RDW (11.6-14.6) % RDW Differential (35.1-43.9) fl Plt Count (150-450) K/mm3 MPV (6.2-12.0) fl Immature Gran % (Auto) (0.0-0.9) % Neut % (Auto) (47-70) % Lymph % (Auto) (19-41) % Reagan % (Auto) (0-10) % Eos % (Auto) (0-5) % Baso % (Auto) (0-1) % Absolute Neuts (auto) (2.0-7.7) X10^3/uL Absolute Lymphs (auto) (0.83-4.51) X10^3/ul Total Counted PT 36.4 H (11.7-14.9) SECONDS INR 3.6 H* D-Dimer Quant (PE/DVT) Cancelled Sodium 141 (136-145) mmol/L Potassium 4.2 (3.5-5.1) mmol/L Chloride 110 H (98-107) mmol/L Carbon Dioxide 22.0 (21.0-32.0) mmol/L Anion Gap 9 (5-15) BUN 13 (7-18) mg/dL Creatinine 1.20 (0.70-1.30) mg/dL Estim Creat Clear Calc 73.06 ml/min Est GFR (MDRD) Af Amer 79 (>60) mL/min Est GFR (MDRD) Non-Af 65 (>60) mL/min BUN/Creatinine Ratio 10.8 (10-20) RATIO Glucose 158 H (74-106) mg/dL Lactic Acid (0.4-2.0) mmol/L Calcium 7.7 L (8.5-10.1) mg/dL Phosphorus (2.5-4.9) mg/dL Magnesium (1.6-2.6) mg/dL Total Bilirubin (0.20-1.00) mg/dL Direct Bilirubin (0.00-0.30) mg/dL AST (15-37) U/L ALT (16-61) U/L Alkaline Phosphatase (45-117) U/L Troponin I < 0.015 (<0.045) ng/mL B-Natriuretic Peptide 75.2 (0-100) pg/mL Total Protein (6.4-8.2) g/dL Albumin (3.2-5.0) g/dL Globulin (2.2-4.2) g/dL Urine Color (Yellow) Urine Clarity (Clear) Urine pH (5.0 - 8.0) Ur Specific Bishop (1.002-1.030) Urine Protein (Negative) mg/dl Urine Glucose (UA) (Normal) mg/dl Urine Ketones (Negative) mg/dl Urine Occult Blood (Negative) /ul Urine Nitrite (Negative) Urine Bilirubin (Negative) mg/dL Urine Urobilinogen (Normal) mg/dl Ur Leukocyte Esterase (Negative) /ul MRSA (PCR) (Negative) 11/16/18 Range/Units 05:54 WBC 6.4 (4.4-11.0) K/mm3 RBC 4.46 L (4.6-6.2) M/mm3 Hgb 14.8 (13.0-16.5) g/dl Hct 43.6 (40-54) % MCV 97.8 H (80-94) fL MCH 33.2 H (27.0-32.0) pg MCHC 33.9 (32-36) g/gl RDW 13.6 (11.6-14.6) % RDW Differential 47.4 H (35.1-43.9) fl Plt Count 209 (150-450) K/mm3 MPV 9.2 (6.2-12.0) fl Immature Gran % (Auto) 0.300 (0.0-0.9) % Neut % (Auto) 81.5 H (47-70) % Lymph % (Auto) 9.7 L (19-41) % Reagan % (Auto) 7.3 (0-10) % Eos % (Auto) 0.9 (0-5) % Baso % (Auto) 0.3 (0-1) % Absolute Neuts (auto) 5.2 (2.0-7.7) X10^3/uL Absolute Lymphs (auto) 0.62 L (0.83-4.51) X10^3/ul Total Counted Not Reportable PT (11.7-14.9) SECONDS INR D-Dimer Quant (PE/DVT) Sodium (136-145) mmol/L Potassium (3.5-5.1) mmol/L Chloride (98-107) mmol/L Carbon Dioxide (21.0-32.0) mmol/L Anion Gap (5-15) BUN (7-18) mg/dL Creatinine (0.70-1.30) mg/dL Estim Creat Clear Calc ml/min Est GFR (MDRD) Af Amer (>60) mL/min Est GFR (MDRD) Non-Af (>60) mL/min BUN/Creatinine Ratio (10-20) RATIO Glucose (74-106) mg/dL Lactic Acid (0.4-2.0) mmol/L Calcium (8.5-10.1) mg/dL Phosphorus (2.5-4.9) mg/dL Magnesium (1.6-2.6) mg/dL Total Bilirubin (0.20-1.00) mg/dL Direct Bilirubin (0.00-0.30) mg/dL AST (15-37) U/L ALT (16-61) U/L Alkaline Phosphatase (45-117) U/L Troponin I (<0.045) ng/mL B-Natriuretic Peptide (0-100) pg/mL Total Protein (6.4-8.2) g/dL Albumin (3.2-5.0) g/dL Globulin (2.2-4.2) g/dL Urine Color (Yellow) Urine Clarity (Clear) Urine pH (5.0 - 8.0) Ur Specific Bishop (1.002-1.030) Urine Protein (Negative) mg/dl Urine Glucose (UA) (Normal) mg/dl Urine Ketones (Negative) mg/dl Urine Occult Blood (Negative) /ul Urine Nitrite (Negative) Urine Bilirubin (Negative) mg/dL Urine Urobilinogen (Normal) mg/dl Ur Leukocyte Esterase (Negative) /ul MRSA (PCR) (Negative) Microbiology 11/16/18 14:45 Sputum, Expectorated/Coughed Gram Stain - Final 11/16/18 14:45 Sputum, Expectorated/Coughed Respiratory Culture - Preliminary Appears to be normal respiratory kartik. Further studies to follow. 11/16/18 10:18 Mucosa - Nose Respiratory Panel (PCR) - Final 11/16/18 12:10 Urine, Clean Catch Streptococcus pneumoniae Antigen (M - Final 11/16/18 12:10 Urine, Clean Catch Legionella Antigen - Final 11/16/18 07:07 Mucosa - Nose Influenza Types A,B Direct FA (ELVIA) - Final none Operations: None Procedures: None Summary of Care Provided: The patient is a 62 year old M with a past medical history of hypertension, bipolar disorder, coronary artery disease with history of CABG and PCI, bicuspid aortic valve status post mechanical aortic valve replacement, chronic anticoagulation with warfarin, GERD, peptic ulcer disease, remote CVA, obstructive sleep apnea noncompliant with CPAP, COPD and obesity who presented to the emergency department at [facility] on 11/16/2018 complaining of awakening suddenly at 3 AM with shortness of breath and shaking. He states he felt well when he went to bed and denies any recent fever, chills, nausea, vomiting, cough, wheezing. He used his inhalers and then his nebulizer without significant improvement and he came to the emergency room. He denies any sick contacts. He did not have an influenza shot this year but he has had Pneumovax in the past. Vital signs of presentation to the emergency department were temperature 98.3, pulse rate 72, blood pressure 141/82, respiratory rate 14 and he was 95-97% saturated on room air. Respiratory rate then went up to 28. The blood pressure when I was in the room examining him was 80/50 and he complained of lightheadedness. CBC showed a white blood cell count of 6.4 with a left shift. Hemoglobin and platelets were within normal limits. INR was supratherapeutic at 3.6. BMP was unremarkable with the exception of creatinine of 1.2 which is up from 0.95 in early October. Lactic acid was 2.2 and troponin was less than 0.015. Chest x-ray showed right lower lobe pneumonia. He was given a DuoNeb aerosol in the emergency room and his breathing improved. At the time of my examination he had no conversational dyspnea, was not tachypneic and had no accessory muscle use. He was not wheezing. Influenza swab in the emergency room was negative. Blood cultures were sent. He was admitted to the hospital with a diagnosis of pneumonia and I suspect this may be secondary to aspiration due to it's very sudden onset and the face that he felt well when he went to bed and it awoke him suddenly from sleep. He has a known hx of GERD. He was admitted to the PCU on Zosyn. The following day he was AF with normal vital signs. He was 97% saturated on room air. He denied cough and also denies shortness of breath. Auscultation of the lungs revealed them to be clear to auscultation but diminished. There were no wheezes and no rails. Chest x-ray showed resolving right lower lobe infiltrate. Telemetry showed normal sinus rhythm and sinus tachycardia with bundle branch block. He was discharged home on Augmentin 875 mg twice daily. He was instructed to not take Coumadin tonight but resume on 11/18/2018. He will follow-up with his primary care physician in the next 2-3 days for a repeat PT/INR. This note was generated with [employer] dictation software. It may contain incorrect words, spelling, and punctuation that were not noted in checking the note before signing. - Physical Exam Vital Signs Temp Pulse Resp BP Pulse Ox 97.9 F 70 20 H 135/62 H 97 11/17/18 09:30 11/17/18 11:23 11/17/18 11:12 11/17/18 09:36 11/17/18 09:30 Oxygen Flow Rate (L/min) 2 Oxygen Delivery Method Room Air Weight: 270 lb 4.587 oz Body Mass Index (BMI) 35.6 Intake and Output for Last 24 Hours 11/15/18 11/16/18 11/17/18 23:59 23:59 23:59 Intake Total 1598 / 1598 2795 / 2795 Balance 1598 / 1598 2795 / 2795 Microbiology Past 72 Hours 11/16/18 14:45 Gram Stain - Final Sputum, Expectorated/Coughed Respiratory Culture - Preliminary Appears to be normal respiratory kartik. Further studies to follow. 11/16/18 10:18 Respiratory Panel (PCR) - Final Mucosa - Nose 11/16/18 12:10 Streptococcus pneumoniae Antigen (M - Final Urine, Clean Catch 11/16/18 12:10 Legionella Antigen - Final Urine, Clean Catch 11/16/18 07:07 Influenza Types A,B Direct FA (ELVIA) - Final Mucosa - Nose Laboratory Tests Past 24 Hrs 11/17/18 04:55 PT 42.5 H INR 4.4 H* Discharge Activity: Return to Normal Activity, - - Do not lie down for 2 hours after eating. Call your doctor if you observe: Fever of 101 or Higher, Shortness of breath, Dizziness, Fainting spells, Swelling in the ankles, Chest pain, - - Call your PCP if severe diarrhea ( > 5 stools a day), painful sores in the mouth, painful swallowing, rash or itching. Taking a probiotic such as Lactobacillus or Kefir can help with loose stools while taking antibiotics. Home Medications: Medications to take at Discharge Benztropine [Cogentin] 0.5 mg PO TID 10/20/15 Clopidogrel Bisulfate [Plavix] 75 mg PO DAILY 10/20/15 Risperidone [Risperdal] 4 mg PO BID 10/20/15 Pantoprazole Sodium [Protonix] 40 mg PO BID 02/01/17 Tamsulosin HCl [Flomax] 0.4 mg PO QHS 02/01/17 Fluticasone/Salmeterol [Advair 250/50 Mcg Diskus] 1 puff INHALATION BID 05/25/17 bupropion HCl XL 150 mg 24 hr tablet, extended release 150 mg PO QAM 09/12/18 buspirone 10 mg tablet 15 mg PO TID 09/12/18 cetirizine 10 mg tablet 10 mg PO DAILY 09/12/18 fluoxetine 60 mg tablet 40 mg PO DAILY 09/12/18 naltrexone 50 mg tablet 50 mg PO DAILY 09/12/18 potassium chloride ER 10 mEq capsule,extended release 10 meq PO DAILY 09/12/18 acapella See Rx Instructions .ROUTE .MEDSUPPLY #1 ea 01/14/19 metoprolol tartrate 25 mg tablet 12.5 mg PO BID #30 tab 09/17/18 Albuterol Sulfate [Ventolin Hfa] 2 puff INHALATION Q4H 10/03/18 Donepezil HCl 10 mg PO QHS 10/03/18 albuterol sulfate 2.5 mg/3 mL (0.083 %) solution for nebulization 2.5 mg INHALATION Q4H PRN #180 ml 10/23/18 Warfarin Sodium [Coumadin] 10 mg PO QHS 11/16/18 Amox/Clavulanate Tablet [Augmentin Tablet] 875 mg PO Q12H #14 tablet 11/17/18 Guaifenesin [Mucinex] 1,200 mg PO BID #20 tab 11/17/18 Following Prescrptions Were Given to Patient: Amox/Clavulanate Tablet [Augmentin Tablet] 875 mg PO Q12H #14 tablet Guaifenesin [Mucinex] 1,200 mg PO BID #20 tab Primary Care Physician: Bartolo Mitchell DO [Primary Care Provider] - Please follow up with your Primary Care Physician in: Sunday or SUN Patient Instructions: What Is GERD?, Lifestyle Changes for Controlling GERD Disposition: Home Minutes spent on discharge:: 30 Patient Condition:: Good Medical Necessity - Tobacco Use Smoking Status: Former smoker Tobacco Use: Non-smoker Meaningful Use Info Meaningful Use Diagnoses (Choose all that apply): None applicable Code Visit Inpatient E&M: 68077 Disch Hosp
--- NOTE | 2018-11-19 15:40 | CASEMGMT ---
JACQUE CAMARA F/U Phone Call LACE: 9 Strata: 3 Discharge date: 11/17/18 Call date: 11/19/18 Call time: [phone] Attempted to reach pt without success at this time, unable to leave message for pt at this time. [place] JACQUE CAMARA Admission dx: CAP, Acute exac COPD, Chest pain
== END 2018-11-17 14:54 | disposition home or self-care (01) | DRG 178 ==
LOC: ED 07:13 → PCU 07:47
PROVIDERS: Admitting Provider Internal Medicine; Emergency Provider Emergency Medicine; Family Provider Preventive Medicine Occupational Medicine; PCP Preventive Medicine Occupational Medicine; Visit Provider Internal Medicine
DX: J69.0 Pneumonitis due to inhalation of food and vomit (principal); J44.1 Chronic obstructive pulmonary disease with (acute) exacerbation; E86.0 Dehydration; G47.33 Obstructive sleep apnea (adult) (pediatric); I25.10 Atherosclerotic heart disease of native coronary artery without angina pectoris; E66.9 Obesity, unspecified; I95.9 Hypotension, unspecified; F31.9 Bipolar disorder, unspecified; K21.9 Gastro-esophageal reflux disease without esophagitis; I10 Essential (primary) hypertension; Z95.2 Presence of prosthetic heart valve; Z68.35 Body mass index [BMI] 35.0-35.9, adult; Z95.5 Presence of coronary angioplasty implant and graft; Z95.1 Presence of aortocoronary bypass graft; Z79.01 Long term (current) use of anticoagulants; Z87.891 Personal history of nicotine dependence
CPT/HCPCS: 36415; 71045; 71046; 80048; 80076; 81002; 83605; 83735; 83880; 84100; 84484; 85025; 85610; 87040; 87070; 87205; 87449; 87633; 87641; 87804; 93005; 94640; 94667; 94668; 99251; 99285; J7030; J7040; A4216; G0463; J2405

== ENCOUNTER 2019-02-08 20:05 | Emergency (ER) | payer MEDICARE, OTHER, SELFPAY ==
[2018-11-16 09:08] VITALS: BMI 35.6
[2019-02-08 20:05] VITALS: BP 146/75; PULSE 106; RESP 18; TEMP 36.7; O2SAT 96; BMI 35.5
[2019-02-08] MEDS: HYDROcodone Bitartrate/Apap 5/325 Tablet PO (20:38)
[2019-02-08 21:10] LABS: Prothrombin Time (Protime)PT. 47.4 SECONDS (11.7-14.9)
--- NOTE | 2019-02-08 21:11 | ED.RN ---
DR. HAAS AWARE OF INR 5.0.
--- NOTE | 2019-02-08 21:20 | ED.DCSUM_ITS ---
- ER Visit Summary Date of Service: 02/08/19 Chief Complaint: Bug bite left arm History of Present Illness: The patient is a [address] Rodríguez, Dr. Uriostegui, and Dr. Norton. He reports that he noticed a bump to the medial left arm this morning and believes a bug bit him. However, he does not know what this would have been. He denies any other trauma. No fall, MVA, or change in activity. He denies any other complaints. Patient does have a history of a [facility] aortic valve replacement in 2004 and takes 10 mg of Coumadin a day. He reports his last INR was 2.5. He denies any easy bruising or bleeding. Physical Examination: Vitals: Stable. Afebrile. General: Well-nourished and well-developed. Head: Normocephalic atraumatic. Neck: Supple, no lymphadenopathy. No JVD. Nontender. Cardiovascular: Regular rate and rhythm. No murmurs. Respiratory: No respiratory distress. Clear to auscultation bilaterally. Abdominal: Soft, nontender, nondistended, normal bowel sounds. No guarding, rebound, or peritoneal signs. Back: Nontender. Extremities: There is no erythema or warmth to the medial left arm. There is a contusion that is approximately 5 cm in diameter that is mildly tender to palpation. He has no pain with movement of his arm. He is neurovascular intact distal to this. He has a 2+ radial pulse.. Skin: Normal color, no rash. Neurologic: Alert and oriented ?3. Cranial nerves II through XII are intact. Normal strength and sensation. Psych: Normal affect. Test Results: INR is 5 Emergency Department Course and Treatment: Patient was given a single dose of [place]. He is resting comfortably. Treatment Plan: Patient was discussed with Dr. Arvizu. He is instructed to hold his Coumadin for the next 2 days and then restarted at his previous dose of 10 mg a day. Get his INR checked again in 6 days. I have suggested that he use Tylenol for pain and ice the area. Follow-up with Dr. Rodríguez in 3 to 5 days if not improving. Return to the emergency department for any worsening symptoms. Disposition: To home in improved and stable condition. Impression: 1. Contusion left arm. 2. Coumadin coagulopathy. 3. History of mechanical aortic valve replacement. This note was generated with [employer] dictation software. It may contain incorrect words, spelling, and punctuation that were not noted in review of the chart prior to signing ED Disposition - Plan for ED Patient: Instructions: ED Hematoma Referrals: Bartolo Mitchell DO [Primary Care Provider] - 3-5 Days if not improving Additional Instructions: Do not take your Coumadin tomorrow or Sunday. Then resume your Coumadin at 10mg a day. Get your INR checked again on Sunday.
[2019-02-08 21:24] VITALS: BP 154/82; PULSE 92; RESP 18; O2SAT 97
== END 2019-02-08 21:26 | disposition home or self-care (01) ==
PROVIDERS: Emergency Provider Emergency Medicine; Family Provider Preventive Medicine Occupational Medicine; PCP Preventive Medicine Occupational Medicine
DX: S40.022A Contusion of left upper arm, initial encounter (principal); D68.32 Hemorrhagic disorder due to extrinsic circulating anticoagulants; T45.515A Adverse effect of anticoagulants, initial encounter; R01.1 Cardiac murmur, unspecified; X58.XXXA Exposure to other specified factors, initial encounter; Y93.9 Activity, unspecified; Y92.9 Unspecified place or not applicable; Z95.2 Presence of prosthetic heart valve; I25.10 Atherosclerotic heart disease of native coronary artery without angina pectoris; J44.9 Chronic obstructive pulmonary disease, unspecified; R10.9 Unspecified abdominal pain; G89.29 Other chronic pain; Z79.02 Long term (current) use of antithrombotics/antiplatelets; Z79.01 Long term (current) use of anticoagulants; Z79.899 Other long term (current) drug therapy
CPT/HCPCS: 36415; 85610; 99283

== ENCOUNTER 2019-02-17 10:58 | Outpatient (RCR) | payer MEDICARE, MEDICAID, SELFPAY ==
[2018-11-01 14:56] VITALS: BMI 34.3
[2019-02-12 12:27] LABS: International Normalized Ratio 1.9; Prothrombin Time (Protime)PT. 21.3 SECONDS (11.7-14.9)
[2019-02-17 11:51] LABS: International Normalized Ratio 3.1; Prothrombin Time (Protime)PT. 32.2 SECONDS (11.7-14.9)
== END 2019-03-02 12:00 | disposition home or self-care (01) ==
LOC: LAB 10:58
PROVIDERS: Physician Assistant Medical; Family Provider Preventive Medicine Occupational Medicine; PCP Preventive Medicine Occupational Medicine; Referring Provider Internal Medicine Cardiovascular Disease; Visit Provider Internal Medicine Cardiovascular Disease
DX: Z79.01 Long term (current) use of anticoagulants (principal)
CPT/HCPCS: 36415; 85610

== ENCOUNTER 2019-03-11 19:38 | Emergency (ER) | payer MEDICARE, OTHER, SELFPAY ==
[2019-03-03 10:26] VITALS: BMI 35.5
[2019-03-11 19:40] VITALS: BP 134/72; PULSE 85; RESP 17; TEMP 36.3; O2SAT 95; BMI 35.8
--- NOTE | 2019-03-11 20:15 | RAD_ITS ---
HISTORY:left shoulder pain. NKI left shoulder pain. NKI COMPARISON: None FINDINGS: # of images incl. paperwork: 4 XR Shoulder Min 2 Views: Left BONE AND JOINTS: No acute fracture or subluxation. There is mild chromic clavicular arthropathy. SOFT TISSUES: Unremarkable. No radiopaque foreign body. There is a battery overlying the left upper hemithorax RAD/Shoulder min 2 Views IMPRESSION: Mild chromic clavicular arthropathy If symptoms persist consider MRI for further evaluation. at 2035 Reported and signed by: Teetee Lynch DO Electronically Signed: Teetee Lynch DO at 20:34 EDT Tel , Service support ,
--- NOTE | 2019-03-11 20:43 | ED.VISSUMM ---
- ER Visit Summary Date of Service: 03/11/19 Chief Complaint: Shoulder pain History of Present Illness: The patient is a 63 M who presents with left shoulder pain that has been getting worse over the past week. Patient describes the pain as sharp and throbbing. Patient states the pain is worse with movement. Patient denies any paresthesias or weakness. Patient denies any specific trauma or injury. Patient thinks he may have torn his rotator cuff because this feels similar to his prior rotator cuff in his right shoulder. Physical Examination: Vital signs are stable. Patient is afebrile. Patient is in no acute distress. Musculoskeletal exam reveals tenderness over the left shoulder. There is no deformity noted. There is no edema or ecchymosis. Range of motion was limited in all motions of the left shoulder secondary to pain. Radial pulses are equal bilaterally. Sensation was intact to light touch in the radial, median, ulnar and axillary areas. Strength is 5/5 in the radial, median, and ulnar areas. Test Results: X-rays of the left shoulder were obtained. There is no acute fracture or dislocation. Emergency Department Course and Treatment: Patient was instructed to ice and elevate the left shoulder. Patient was given a prescription for meloxicam. Patient was instructed to follow-up with his primary care physician in 5 to 7 days. Patient understood and was agreeable with the plan. All questions were answered. Disposition: Discharge home Impression: Left shoulder strain This note was generated with [employer] dictation software. It may contain incorrect words, spelling, and punctuation that were not noted in review of the chart prior to signing ED Disposition - Plan for ED Patient: Disposition: Home or Assisted Living Diagnosis: Left shoulder strain Instructions: SHOULDER PAIN (Uncertain Cause) Prescriptions: Meloxicam 15 mg PO DAILY PRN PRN #20 tab PRN Reason: Pain Prescription Printed Referrals: Bartolo Mitchell DO [Primary Care Provider] - 5-7 Days
[2019-03-11] MEDS: HYDROcodone Bitartrate/Apap 5/325 Tablet PO (20:49)
[2019-03-11 21:59] VITALS: BP 141/73; PULSE 81; RESP 18; O2SAT 95
== END 2019-03-11 22:00 | disposition home or self-care (01) ==
PROVIDERS: Emergency Provider Emergency Medicine; Family Provider Preventive Medicine Occupational Medicine; PCP Preventive Medicine Occupational Medicine
DX: S46.912A Strain of unspecified muscle, fascia and tendon at shoulder and upper arm level, left arm, initial encounter (principal); X58.XXXA Exposure to other specified factors, initial encounter; Y93.9 Activity, unspecified; Y92.9 Unspecified place or not applicable; J44.9 Chronic obstructive pulmonary disease, unspecified; Z95.2 Presence of prosthetic heart valve; Z79.01 Long term (current) use of anticoagulants; Z79.899 Other long term (current) drug therapy
CPT/HCPCS: 36415; 73030; 80061; 80076; 85610; 99283

== ENCOUNTER → 2019-03-25 | Outpatient (CLI) | payer MEDICARE, OTHER, SELFPAY ==
[2019-03-03 10:26] VITALS: BMI 35.5
[2019-03-24 14:30] VITALS: BMI 35.9
[2019-03-25 11:16] VITALS: PULSE 78; PULSE 79; PULSE 89; PULSE 94; PULSE 96; PULSE 97; O2SAT 93; O2SAT 94; O2SAT 95
--- NOTE | 2019-03-25 13:14 | PCM.PSN.6M ---
PSN 6 Minute Walk Test - 6 Minute Walk Test 6 Minute Walk Test: 6 Minute Walk Test PSN:6-Minute Walk Test Start: 03/25/19 11:16 Freq: Status: Active Protocol: [id number] Document 03/25/19 11:16 FR (Rec: 03/25/19 11:21 FR [id number]) 6 Minute Walk Test Date Performed 03/25/19 Time Performed 11:00 Height 6 ft 1 in Weight: 123.377 kg Weight in Pounds 272.0 lbs Assistive device used: None Pre-test Oxygen Delivery Method Room Air Pulse Ox (%) 93 Pulse Rate (60-100 beats/min) 79 Dyspnea Elba Scale (0-10) 4 Exertion [place] Scale (6-20) 11 1st minute Oxygen Delivery Method Room Air Pulse Ox (%) 94 Pulse Rate (60-100 beats/min) 89 2nd minute Oxygen Delivery Method Room Air Pulse Ox (%) 93 Pulse Rate (60-100 beats/min) 94 3rd minute Oxygen Delivery Method Room Air Pulse Ox (%) 93 Pulse Rate (60-100 beats/min) 94 4th minute Oxygen Delivery Method Room Air Pulse Ox (%) 93 Pulse Rate (60-100 beats/min) 97 Reported Symptoms Increased Work of Breathing 5th minute Oxygen Delivery Method Room Air Pulse Ox (%) 94 Pulse Rate (60-100 beats/min) 96 Reported Symptoms Increased Work of Breathing 6th minute Oxygen Delivery Method Room Air Pulse Ox (%) 94 Pulse Rate (60-100 beats/min) 97 Dyspnea Elba Scale (0-10) 7 Exertion [place]ba Scale (6-20) 13 Reported Symptoms Increased Work of Breathing Post-test Oxygen Delivery Method Room Air Pulse Ox (%) 95 Pulse Rate (60-100 beats/min) 78 Full Laps Walked 20 Partial Lap, Number of Tiles Walked 14 Total Distance Walked (ft) 1194 - Interpretation Interpretation: The patient was able to ambulate 1194 feet over the course of 6 minutes on room air with no assistive devices or breaks. The patient did have a decreased baseline saturation of 93%, but no tachycardia or significant desaturation was noted during testing. These findings are consistent with a respiratory limitation exercise tolerance. - Recommendations Recommendations: No supplemental oxygen is indicated at this time.
== END | disposition home or self-care (01) ==
LOC: PSN 10:45
PROVIDERS: Family Provider Preventive Medicine Occupational Medicine; PCP Preventive Medicine Occupational Medicine; Referring Provider Internal Medicine Critical Care Medicine; Visit Provider Internal Medicine Critical Care Medicine
DX: J44.9 Chronic obstructive pulmonary disease, unspecified (principal)
CPT/HCPCS: 94618

== ENCOUNTER 2019-03-27 11:36 | Outpatient (RCR) | payer MEDICARE, SELFPAY ==
[2019-03-03 07:40] VITALS: BMI 35.5
[2019-03-03 10:26] VITALS: BMI 35.5
[2019-03-13 15:13] LABS: International Normalized Ratio 2.6; Prothrombin Time (Protime)PT. 27.9 SECONDS (11.7-14.9)
[2019-03-20 16:45] LABS: Prothrombin Time (Protime)PT. 37.8 SECONDS (11.7-14.9)
[2019-03-20 17:19] LABS: International Normalized Ratio 3.8
[2019-03-27 12:47] LABS: International Normalized Ratio 3.4; Prothrombin Time (Protime)PT. 34.6 SECONDS (11.7-14.9)
[2019-03-27 14:52] LABS: AST(SGOT) 25 U/L (15-37); Alanine Aminotransfer ALT/SGPT 29 U/L (16-61); Albumin, Serum 3.5 g/dL (3.2-5.0); Alkaline Phosphatase 135 U/L (45-117); Bilirubin, Direct 0.13 mg/dL (0.00-0.30); Cholesterol 144 mg/dL (200); Globulin 3.8 g/dL (2.2-4.2); High Density Lipoprotein 42 mg/dL; Protein, Total 7.3 g/dL (6.4-8.2); Triglycerides 120 mg/dL; Very Low Density Lipoprotein 24 mg/dL (5-40)
== END 2019-04-02 16:23 | disposition home or self-care (01) ==
LOC: LAB 11:36
PROVIDERS: Family Provider Preventive Medicine Occupational Medicine; PCP Preventive Medicine Occupational Medicine; Referring Provider Internal Medicine Cardiovascular Disease; Visit Provider Internal Medicine Cardiovascular Disease
DX: Z79.01 Long term (current) use of anticoagulants (principal)
CPT/HCPCS: 36415; 85610

== ENCOUNTER → 2019-03-28 | Outpatient (CLI) | payer MEDICARE, OTHER, SELFPAY ==
[2019-03-03 10:26] VITALS: BMI 35.5
[2019-03-24 14:30] VITALS: BMI 35.9
--- NOTE | 2019-03-28 10:58 | PFTCOMP_ITS ---
COMPLETE PULMONARY FUNCTION TEST INTERPRETATION Brief HPI: Patient is a 63 year old male, currently under the care of myself, who presents to [facility] for complete pulmonary function tests secondary to diagnosis of COPD. Respiratory therapist reports good effort and reproducible results. Interpretation: Forced expiration spirometry shows a mild large airways obstructive ventilatory defect with an FEV1 of 86% predicted. There is a significant bronchodilator response in FVC and FEV1 by strict ATS criteria. Spirograms are of good quality and plateau slowly, indicating slowly emptying areas of the lungs. The respiratory flow volume loop shows decreased expiratory flow rates at high lung volumes consistent with small airways obstruction. Lung volumes by body plethysmography show a normal total lung capacity at 8.17 L, 108% predicted. All other lung volumes are within normal limits. Diffusion capacity by carbon monoxide is decreased at 71% predicted. The airway resistance is normal. Compared to previous pulmonary function tests from 06/13/2018, there has been no significant change. Impression: Partially reversible mild large airways obstructive ventilatory defect and a pattern consistent with COPD/asthma overlap syndrome.
== END | disposition home or self-care (01) ==
LOC: PSN 06:47
PROVIDERS: Family Provider Preventive Medicine Occupational Medicine; PCP Preventive Medicine Occupational Medicine; Referring Provider Internal Medicine Critical Care Medicine; Visit Provider Internal Medicine Critical Care Medicine
DX: J44.9 Chronic obstructive pulmonary disease, unspecified (principal)
CPT/HCPCS: 94060; 94726; 94729

== ENCOUNTER 2019-04-14 10:42 | Outpatient (RCR) | payer MEDICARE, SELFPAY ==
[2019-03-24 14:30] VITALS: BMI 35.9
[2019-04-14 12:30] LABS: International Normalized Ratio 1.9; Prothrombin Time (Protime)PT. 21.3 SECONDS (11.7-14.9)
== END 2019-04-14 11:42 | disposition home or self-care (01) ==
LOC: LAB 10:42
PROVIDERS: Family Provider Preventive Medicine Occupational Medicine; PCP Preventive Medicine Occupational Medicine; Referring Provider Internal Medicine Cardiovascular Disease; Visit Provider Internal Medicine Cardiovascular Disease
DX: Z79.01 Long term (current) use of anticoagulants (principal)
CPT/HCPCS: 36415; 85610

== ENCOUNTER → 2019-04-14 | Outpatient (CLI) | payer MEDICARE, OTHER, SELFPAY ==
[2019-03-24 14:30] VITALS: BMI 35.9
--- NOTE | 2019-04-14 09:53 | ECHOCS_ITS ---
Reason For Study: CAD, AVR Procedure This was a 2D Doppler, Color Flow transthoracic echocardiogram. The study was technically difficult. Exam performed in department. Left Ventricle Moderate concentric left ventricular hypertrophy. The estimated ejection fraction is 45 %. Septal motion consistent with IVCD. Stage 1 diastolic dysfunction. There are regional wall motion abnormalities as specified. Right Ventricle Mildly dilated right ventricle. Normal systolic function. Atria Normal left atrium. Normal right atrium. Normal atrial septum. Mitral Valve The mitral valve is structurally normal. No prolapse or stenosis seen. Tricuspid Valve Normal tricuspid valve. Unable to estimate RV systolic pressure due to insufficient tricuspid regurgitant envelope. Aortic Valve Peak aortic valve gradient 14 mmHg. Mean aortic valve gradient 7 mmHg. Stable appearing mechanical aortic valve apparatus. Pulmonic Valve The pulmonic valve is not well visualized. Great Vessels Normal aortic root. Moderate atherosclerosis of the aortic arch. Normal inferior vena cava. Inferior vena cava collapse with sniff. Pericardium/Pleural No pericardial effusion. Medication 22 gauge I.V. with prn adaptor inserted into left arm. Diluted definity 4ml given slow IV push to enhance endocardial definition. MMode/2D Measurements & Calculations LVIDd: 4.8 cm IVSd: 1.7 cm LVOT diam: 2.7 cm LVIDs: 3.5 cm LVPWd: 1.5 cm RVDd: 3.8 cm FS: 27.5 % LVOT area: 5.8 cm2 Ao root diam: 4.3 cm LAV(MOD-bp): 58.4 ml LA A4 area: 20.1 cm2 LAV(MOD-bp) Indexed: 23.9 ml/m2 LAV(MOD-sp2): 68.5 ml LAV(MOD-sp4): 50.3 ml LA dimension(2D): 4.7 cm RA A4 area: 19.4 cm2 Doppler Measurements & Calculations MV E max troy: 48.3 cm/sec Lat Peak E' Troy: 6.1 cm/sec Med Peak E' Troy: 6.4 cm/sec MV A max troy: 131.3 cm/sec E/E' lat: 7.9 E/E' med: 7.6 MV E/A: 0.37 Ao V2 max: 186.2 cm/sec LV V1 max: 142.7 cm/sec SV(LVOT): 159.6 ml Ao max P.9 mmHg LV V1 max P.2 mmHg Ao V2 mean: 129.7 cm/sec LV V1 mean P.6 mmHg Ao mean P.4 mmHg LV V1 mean: 100.6 cm/sec Ao V2 VTI: 33.6 cm LV V1 VTI: 27.5 cm JOCELYN(I,D): 4.7 cm2 JOCELYN(V,D): 4.4 cm2 PA V2 max: 90.4 cm/sec Interpretation Summary Moderate concentric left ventricular hypertrophy. The estimated ejection fraction is 45 %. Stage 1 diastolic dysfunction. Mildly dilated right ventricle. Unable to estimate RV systolic pressure due to insufficient tricuspid regurgitant envelope. Peak aortic valve gradient 14 mmHg. Mean aortic valve gradient 7 mmHg. Compared to echo report dated 04/18/2018, no appreciable changes noted. The study was technically difficult. Contrast injection was performed. Ordering Physician: Darrel Uriostegui Referring Physician: MD Paula Bartolo Performed By: Judi Mendoza RDCS
== END | disposition home or self-care (01) ==
LOC: CVS 09:51
PROVIDERS: Family Provider Preventive Medicine Occupational Medicine; PCP Preventive Medicine Occupational Medicine; Referring Provider Internal Medicine Cardiovascular Disease; Visit Provider Internal Medicine Cardiovascular Disease
DX: I25.10 Atherosclerotic heart disease of native coronary artery without angina pectoris (principal); I35.2 Nonrheumatic aortic (valve) stenosis with insufficiency; Z95.5 Presence of coronary angioplasty implant and graft; Z95.1 Presence of aortocoronary bypass graft; Z95.2 Presence of prosthetic heart valve
CPT/HCPCS: 36415; 85610; 93306; Q9957; A4216; C8929

== ENCOUNTER 2019-04-28 11:26 | Outpatient (RCR) | payer MEDICARE, SELFPAY ==
[2019-03-24 14:30] VITALS: BMI 35.9
[2019-04-21 13:32] LABS: International Normalized Ratio 2.8; Prothrombin Time (Protime)PT. 29.5 SECONDS (11.7-14.9)
[2019-04-21 13:50] LABS: AST(SGOT) 28 U/L (15-37); Alanine Aminotransfer ALT/SGPT 37 U/L (16-61); Albumin, Serum 3.2 g/dL (3.2-5.0); Alkaline Phosphatase 142 U/L (45-117); Bilirubin, Direct 0.11 mg/dL (0.00-0.30); Cholesterol 131 mg/dL (200); Globulin 3.7 g/dL (2.2-4.2); High Density Lipoprotein 40 mg/dL; Protein, Total 6.9 g/dL (6.4-8.2); Triglycerides 177 mg/dL; Very Low Density Lipoprotein 35 mg/dL (5-40)
[2019-04-28 11:52] LABS: International Normalized Ratio 3.2
== END 2019-04-28 12:26 | disposition home or self-care (01) ==
LOC: LAB 11:26
PROVIDERS: Family Provider Preventive Medicine Occupational Medicine; PCP Preventive Medicine Occupational Medicine; Referring Provider Internal Medicine Cardiovascular Disease; Visit Provider Internal Medicine Cardiovascular Disease
DX: I25.10 Atherosclerotic heart disease of native coronary artery without angina pectoris (principal); Z95.1 Presence of aortocoronary bypass graft; Z95.5 Presence of coronary angioplasty implant and graft
CPT/HCPCS: 36415; 80061; 80076; 85610

== ENCOUNTER 2019-05-30 12:00 | Outpatient (RCR) | payer MEDICARE, OTHER, SELFPAY ==
[2019-03-24 14:30] VITALS: BMI 35.9
--- NOTE | 2019-05-02 15:25 | HP.PTEVAL_ITS ---
Patient's Visit Information PASHA DENISE is a 63 year old M referred to Physical Therapy by Lucius Donnelly DO with a diagnosis of PAIN IN LEFT UPPER ARM,ADHESIVE CAPSULITIS. Date of Evaluation: 05/02/19 Physical Therapist: Raffy Mcguire, PT, Cert MDT, OCS - Visit Plan Frequency: 2x /Week Duration: 4 Weeks Plan: POSSIBLE RTC INVOLVEMENT WITH WEAKNESS. PT INTERVENTIONS WITH RTC/SCAPULAR EX'S ,POSTURAL EX'S,MANUAL THERAPY,ROM,MODALITIES - Subjective Findings: This 63 y/o male presnets to physical therapy with left shoulder pain. Patient developed shoulder pain 2 weeks ,seen Dr arriaga in [place] then had x-ray s. Patient had injury or mechanism of inury otherwise inscidous onset of pain. Patient has shoulder pain global. Pateint is unable to raise arm OH activities impairs housework task ,ADL'S and self hygine. Patient denies parathesia/tingling. No symptoms at rest.Pain affects sleeping. Patient left shoulder impairs ADL's and function. Patient condition affects QOL.PMH: CABG,CVA AFFECTING LEFT SIDE 2012. VOCATION: retired. SOCIAL: - Pain Left Shoulder Pain Intensity (Out of 10): 8 Pain Intensity Range: 10 Comment: movement - Objective POSTURE: mild foward posture ,rounded shoulder. NEURO: intact. PALAPTION: long head,,AC joint. AROM: shoulder flexion 85 degrees,abduction 70 degrees,IR L1. PROM: supine flexion 160 degrees,abduction 155 degrres ,ER 90 degrees,. MMT: RTC 4-/5,supraspinatous 3+/5 pain ,deltoid 3+/5 - Special Tests L Shoulder External Rotation Lag Test - RC Tear: Negative L Shoulder Supine Impingement Test - RC Tear: Negative L Shoulder Drop Sign - IS Test: Negative L Shoulder Empty Can - SS: Positive L Shoulder Belly Press - SupScap: Negative L Shoulder Neer - Impingement: Positive L Shoulder Hand Lisandro - Impingement: Positive L Shoulder Speeds Test - Labrum/Biceps: Positive L Shoulder Shrug Sign - OA/Adhesive Capsulitis: Negative - Goals Goal 1:: Patient to be Independant with HEP Goal Time Frame: 4-6 Weeks Goal 2:: Patient to decrease left shoulder pain by 50% or greater to improve function with ADL'S Goal Time Frame: 4-6 Weeks Goal 3:: Patient to increase strength RTC 4/5 and deltoid 4-/5 to improve function with OH activities. Goal Time Frame: 4-6 Weeks Goal 4:: Patient to improve AROM shoulder flexion and abduction WFL to improve OH activities. Goal Time Frame: 4-6 Weeks Goal 5:: Patient to improve quick dash by 5 points or> to improve ADL'S and QOL. Goal Time Frame: 4-6 Weeks - Rehabilitation Potential Physical Therapy Diagnosis: This 63 y/o male presents with possible RTC involvement with partial tear due to weakness RTC,pain ,unable to raise arm OH for functional ADL'S thus benifit from skilled PT Rehabilitation Potential: Good - Anticipated Interventions Patient/Client Instruction: Educate patient on: Condition, Plan of Care For the Purpose of:: To decrease pain, To increase ROM, To improve muscle performance and motor function, To improve ability to perform ADL's, To increase tolerance to activity/condition/position, To improve ability of physical actions for home/community/work/leisure, To improve health of tissue, To decrease soft tissue restriction, To increase flexibility/ROM, To improve ability to perform tasks related to life management Therapeutic Exercise to Include: Strength training, Postural training, Flexibilty training, Active ROM, Scapular Strength/Stabilization Comment: RTC For the Purpose of:: To decrease pain, To increase ROM, To improve muscle performance and motor function, To increase tolerance to activity/condition/position, To improve ability of physical actions for home/community/work/leisure, To improve health of tissue, To decrease soft tissue restriction, To increase flexibility/ROM, To improve ability to perform tasks related to life management Manual Therapy Techniques to Include: Mobilization Comment: G-H 2-4 For the Purpose of:: To decrease pain, To increase ROM, To improve health of tissue, To decrease soft tissue restriction, To increase flexibility/ROM Thank you for the opportunity to evaluate your patient. For Medicare and Medicare HMO plans, please review the plan of care and approve it. It will need to be FAXED BACK to us at [phone] for Medicare purposes. For Medicare only, by signing this I certify the plan of care. Please let me know if there are questions or concerns regarding this plan of care. Physician Signature: Date:
--- NOTE | 2019-05-30 12:25 | HP.PTDCSUM ---
HP - PT D/C Summary It has been my pleasure to treat PASHA DENISE under orders from Lucius Donnelly DO, for the diagnosis of PAIN IN LEFT UPPER ARM,ADHESIVE CAPSULITIS for a total of 8 visit(s). Discharge Date: Please see the following information for a summary of their discharge status. - Subjective Subjective: Doing well no pain ..stiffness - Pain Left Shoulder Pain Intensity (Out of 10): 0 - Overall Improvement % Improvement: 75 - Objective Objective/Function: POSTURE: mild foward posture. AROM: SHOULDER flexion 140 defrres,abd 150 degrees,ER 90. MMT: RTC 4/5 ,4-/5 DELTOIS - Goals Goal 1:: Patient to be Independant with HEP Goal Progress: Goal Met Goal 2:: Patient to decrease left shoulder pain by 50% or greater to improve function with ADL'S Goal Progress: Goal Met Goal 3:: Patient to increase strength RTC 4/5 and deltoid 4-/5 to improve function with OH activities. Goal Progress: Goal Met Goal 4:: Patient to improve AROM shoulder flexion and abduction WFL to improve OH activities. Goal Progress: Goal Met Goal 5:: Patient to improve quick dash by 5 points or> to improve ADL'S and QOL. Goal Progress: Goal Met - Plan Plan: D/C TO HEP - D/C Information If there are questions or concerns regarding this patient's physical therapy, please feel free to call me at [phone]. Thank you for the referral of this patient. Sincerely, Raffy Mcguire, PT, Cert MDT, OCS
== END 2019-05-30 19:00 | disposition home or self-care (01) ==
LOC: PT 12:00
PROVIDERS: Family Provider Preventive Medicine Occupational Medicine; PCP Preventive Medicine Occupational Medicine; Visit Provider Student in an Organized Health Care Education/Training Program
DX: M79.622 Pain in left upper arm (principal); M75.00 Adhesive capsulitis of unspecified shoulder
CPT/HCPCS: 97110; 97162

== ENCOUNTER → 2019-06-09 14:22 | Outpatient (CLI) | payer MEDICARE, SELFPAY ==
[2019-06-09 07:58] VITALS: BMI 36.9
== END ==
PROVIDERS: Family Provider Preventive Medicine Occupational Medicine; PCP Preventive Medicine Occupational Medicine; Referring Provider Nurse Practitioner Acute Care; Visit Provider Nurse Practitioner Acute Care
DX: J44.1 Chronic obstructive pulmonary disease with (acute) exacerbation (principal)
CPT/HCPCS: 87070; 87205

== ENCOUNTER → 2019-09-19 11:12 | Outpatient (CLI) | payer MEDICARE, SELFPAY ==
[2019-09-19 07:05] VITALS: BMI 37.2
--- NOTE | 2019-09-19 11:34 | RAD_ITS ---
STUDY: X-RAY CHEST REASON FOR EXAM: Male, 63 years old. EFFUSION VS CHF TECHNIQUE: PA and lateral views of the chest. COMPARISON: 11/17/2018 FINDINGS: The lungs are clear and expanded. There is no demonstrated pleural abnormality. Sternal cerclage wires and vascular clips are present from a prior sternotomy and coronary artery bypass graft procedure (CABG). Normal mediastinum and damian. Normal visualized pulmonary arteries. There is atherosclerotic calcification of the aortic arch with tortuosity. Normal visualized thoracic spine. Normal visualized ribs, clavicles, and shoulders. There is no demonstrated abnormality of the visualized soft tissue structures of the upper abdomen. RAD/Chest PA and Lateral IMPRESSION: No acute pulmonary process Electronically Signed: Johan Barrientos MD at 11:50 EST , Service support ,
[2019-09-19 11:43] LABS: Basophil# 0.05 X10^3/uL; Basophil% 0.7 % (0-1); Eosinophil# 0.23 X10^3/uL; Eosinophils% 3.2 % (0-5); Hematocrit 43.8 % (40-54); Hemoglobin 14.4 g/dL (13.0-16.5); Lymphocyte % 15.3 % (19-41); Mean Corp Hgb Conc 32.9 g/dL (32-36); Mean Corpuscular Hgb 31.6 pg (27.0-32.0); Mean Corpuscular Volume 96.3 fL (80-94); Monocyte# 0.79 X10^3/uL; NRBC Flagged by Analyzer 0 % (0-5); Neutrophil # 4.97 X10^3/uL (2.7-7.7); Neutrophil % 69.4 % (47-70); Platelet Count 203 K/mm3 (150-450); RBC Distribution Width CV 13.1 % (11.6-14.6); RBC Distribution Width SD 46.5 fl (35.1-43.9); Red Blood Count 4.55 M/mm3 (4.6-6.2); White Blood Count 7.2 K/mm3 (4.4-11.0)
[2019-09-19 12:08] LABS: Anion Gap 5 (5-15); BUN 14 mg/dL (7-18); Calcium,Total 8.5 mg/dL (8.5-10.1); Chloride 107 mmol/L (98-107); Creatinine, Serum 1.08 mg/dL (0.70-1.30); EST Glomerular Filtration Rate 74 mL/min (>60); Est Glom Filt Rate - Afr Amer 89 mL/min (>60); Glucose 96 mg/dL (74-106); Potassium 4.3 mmol/L (3.5-5.1); Sodium Level 140 mmol/L (136-145)
[2019-09-19 12:13] LABS: BNP,B-Type NATRIURETIC PEPTIDE 53.3 pg/mL (0-100)
== END ==
PROVIDERS: PCP Preventive Medicine Occupational Medicine; Referring Provider Internal Medicine Critical Care Medicine; Visit Provider Internal Medicine Critical Care Medicine
DX: I50.40 Unspecified combined systolic (congestive) and diastolic (congestive) heart failure (principal); Q23.1 Congenital insufficiency of aortic valve; Z86.73 Personal history of transient ischemic attack (TIA), and cerebral infarction without residual deficits; Z95.2 Presence of prosthetic heart valve
CPT/HCPCS: 36415; 71046; 80048; 83880; 85025

== ENCOUNTER → 2019-10-02 12:29 | Outpatient (CLI) | payer MEDICARE, SELFPAY ==
[2019-09-19 07:05] VITALS: BMI 37.2
[2019-09-19 13:05] VITALS: BMI 37.3
[2019-10-02 12:30] VITALS: PULSE 103; PULSE 106; PULSE 110; PULSE 113; PULSE 129; PULSE 130; PULSE 131; O2SAT 94; O2SAT 95; O2SAT 97
--- NOTE | 2019-10-02 13:17 | STEWCON_ITS ---
Reason For Study: CHF Stress Results Protocol: Dobutamine Stress Protocol Maximum Predicted HR: 158 bpm Target HR: 134 bpm % Maximum Predicted HR: 97 % Heart Stage Duration Rate BP Dose Comment (mm:ss) (bpm) BASELINE 82 115/78 STAGE 1 4:13 74 133/6710.00 STAGE 2 3:07 103 117/8820.00 STAGE 3 3:10 120 150/8730.00 0.5MG ATROPINE GIVEN TOTAL, NO CHEST PAIN OR DYSPNEA STAGE 4 3:53 153 162/9940.00THROUGHOUT TEST RECOVERY 94 148/90 Stress Duration: 14:23 mm:ss Maximum Stress HR: 153 bpm Baseline Echocardiogram Findings The estimated ejection fraction is 45 %. Stress Echo Wall motion Data Resting WM Intermediate WM Stress WM Resting Wall Motion Wall Motion Stress Basal anteroseptal: Mildly All other cordova appear to hypokinetic. contract normally. Mid-Anterior : Severely Hypokinetic. Mid-anteroseptal : Mildly hypokinetic. EKG Data The baseline ECG displays normal sinus rhythm. The patient was titrated from 10 mcg to a maximum of 40 mcg of dobutamine during the stress. The maximum heart rate attained was 153 beats per minute. This was 96% of maximum predicted heart rate. During dobutamine infusion, there were no ST or T wave changes noted to suggest ischemia. No clinical angina was noted. Interpretation Summary The estimated ejection fraction is 45 %. Normal, adequate, dobutamine echocardiogram. Negative for ischemia by EKG and echocardiographic anterior. No anginal symptoms noted. Rare PACs and PVCs noted. Appropriate blood pressure response to dobutamine. Final LVEF of 55%. Decrease sensitivity due to left bundle branch block, poor echo windows requiring Definity agent. Test terminated due to attainment target heart rate and dyspnea. Patient tolerated procedure well. No complications. The study was technically difficult. Contrast injection was performed. Ordering Physician: Darrel Uriostegui Referring Physician: Darrel Uriostegui Performed By: Mini Alex RDCS
[2019-10-02 13:52] LABS: Prothrombin Time (Protime)PT. 39.2 SECONDS (11.7-14.9)
[2019-10-02 14:08] LABS: AST(SGOT) 24 U/L (15-37); Alanine Aminotransfer ALT/SGPT 35 U/L (16-61); Albumin, Serum 3.5 g/dL (3.2-5.0); Alkaline Phosphatase 150 U/L (45-117); Bilirubin, Direct 0.13 mg/dL (0.00-0.30); Cholesterol 150 mg/dL (200); Globulin 3.9 g/dL (2.2-4.2); High Density Lipoprotein 42 mg/dL; Protein, Total 7.4 g/dL (6.4-8.2); Triglycerides 153 mg/dL; Very Low Density Lipoprotein 31 mg/dL (5-40)
--- NOTE | 2019-10-03 10:37 | PCM.PSN.6M ---
PSN 6 Minute Walk Test - 6 Minute Walk Test 6 Minute Walk Test: 6 Minute Walk Test PSN:6-Minute Walk Test Start: 10/02/19 12:48 Freq: Status: Active Protocol: RESP.6MINW Document 10/02/19 12:30 HG (Rec: 10/02/19 12:50 HG [id number]) 6 Minute Walk Test Date Performed 10/02/19 Time Performed 12:30 Height 6 ft 2 in Weight: 260 lb Weight in Pounds 260.[address]: Darrel Uriostegui Assistive device used: None Pre-test Oxygen Delivery Method Room Air Pulse Ox (%) 97 Pulse Rate (60-100 beats/min) 106 H Dyspnea Elba Scale (0-10) 2 Exertion Elba Scale (6-20) 8 1st minute Oxygen Delivery Method Room Air Pulse Ox (%) 95 Pulse Rate (60-100 beats/min) 103 H 2nd minute Oxygen Delivery Method Room Air Pulse Ox (%) 94 Pulse Rate (60-100 beats/min) 113 H 3rd minute Oxygen Delivery Method Room Air Pulse Ox (%) 94 Pulse Rate (60-100 beats/min) 113 H 4th minute Oxygen Delivery Method Room Air Pulse Ox (%) 94 Pulse Rate (60-100 beats/min) 131 H 5th minute Oxygen Delivery Method Room Air Pulse Ox (%) 95 Pulse Rate (60-100 beats/min) 129 H 6th minute Oxygen Delivery Method Room Air Pulse Ox (%) 95 Pulse Rate (60-100 beats/min) 130 H Post-test Oxygen Delivery Method Room Air Pulse Ox (%) 97 Pulse Rate (60-100 beats/min) 110 H Dyspnea Elba Scale (0-10) 5 Exertion Elba Scale (6-20) 14 Full Laps Walked 18 Partial Lap, Number of Tiles Walked 0 Total Distance Walked (ft) 1062 - Interpretation Interpretation: The patient ambulated 1062 feet over the course of 6 minutes beginning on room air without assistive devices or breaks. Pretesting oxygen saturation was noted to be 97% on room air. With ambulation, the moi oxygen saturation was 94%. There was no significant exertional oxygen desaturation. - Recommendations Recommendations: There is no indication for the use of supplemental oxygen at this time.
== END ==
PROVIDERS: PCP Preventive Medicine Occupational Medicine; Referring Provider Internal Medicine Cardiovascular Disease; Visit Provider Internal Medicine Cardiovascular Disease
DX: R06.00 Dyspnea, unspecified (principal); I50.40 Unspecified combined systolic (congestive) and diastolic (congestive) heart failure; Q23.1 Congenital insufficiency of aortic valve; E78.00 Pure hypercholesterolemia, unspecified; Z79.01 Long term (current) use of anticoagulants; Z95.2 Presence of prosthetic heart valve
CPT/HCPCS: 36415; 80061; 80076; 85610; 93017; 93350; 94618; J7040; Q9957; A4216; C8928

== ENCOUNTER → 2019-10-09 10:54 | Outpatient (CLI) | payer MEDICARE, SELFPAY ==
[2019-09-19 07:05] VITALS: BMI 37.2
[2019-09-19 13:05] VITALS: BMI 37.3
--- NOTE | 2019-10-09 15:19 | PFTCOMP ---
COMPLETE PULMONARY FUNCTION TEST INTERPRETATION Brief HPI: Patient is a 63 year old male, currently under the care of myself, who presents to [facility] for complete pulmonary function tests secondary to diagnosis of dyspnea. Respiratory therapist reports good effort and reproducible results. Patient was on steroids at the time of testing Interpretation: Forced expiration spirometry shows a mild large airways obstructive ventilatory defect with an FEV1 of 86% predicted. There is a significant bronchodilator response in FEV1 by strict ATS criteria. Spirograms are of good quality and plateau slowly, indicating slowly emptying areas of the lungs. The respiratory flow volume loop shows decreased expiratory flow rates at all lung volumes consistent with airway obstruction. Lung volumes by body plethysmography show an elevated total lung capacity at 8.48 L, 115% predicted. FRC and RV are elevated out of proportion. Lung volume measurements are consistent with hyperinflation and air-trapping. Diffusion capacity by carbon monoxide is decreased at 64% predicted. The airway resistance is normal. Compared to previous pulmonary function tests from 03/28/2019, there is been a significant reduction in DLCO by 15%. Impression: Partially reversible mild large airways obstructive ventilatory defect with a symmetric reduction diffusing capacity, resulting in air trapping with hyperinflation, and a pattern consistent with COPD/asthma overlap syndrome.
== END ==
PROVIDERS: PCP Preventive Medicine Occupational Medicine; Referring Provider Internal Medicine Critical Care Medicine; Visit Provider Internal Medicine Critical Care Medicine
DX: I50.40 Unspecified combined systolic (congestive) and diastolic (congestive) heart failure (principal); Q23.1 Congenital insufficiency of aortic valve; Z95.2 Presence of prosthetic heart valve; Z79.01 Long term (current) use of anticoagulants
CPT/HCPCS: 36415; 85610; 94060; 94726; 94729

== ENCOUNTER 2019-10-09 11:50 | Outpatient (RCR) | payer MEDICARE, SELFPAY ==
[2019-03-24 14:30] VITALS: BMI 35.9
[2019-09-19 13:05] VITALS: BMI 37.3
[2019-10-09 13:02] LABS: International Normalized Ratio 3.3; Prothrombin Time (Protime)PT. 34.1 SECONDS (11.7-14.9)
== END 2019-10-09 18:00 | disposition home or self-care (01) ==
LOC: LAB 11:50
PROVIDERS: Family Provider Preventive Medicine Occupational Medicine; PCP Preventive Medicine Occupational Medicine; Referring Provider Internal Medicine Cardiovascular Disease; Visit Provider Internal Medicine Cardiovascular Disease
DX: Z79.01 Long term (current) use of anticoagulants (principal)
CPT/HCPCS: 36415; 85610

== ENCOUNTER → 2019-11-27 10:51 | Outpatient (CLI) | payer MEDICARE, SELFPAY ==
[2019-09-19 13:05] VITALS: BMI 37.3
--- NOTE | 2019-11-27 11:09 | MRI_ITS ---
STUDY: MRI BRAIN WITHOUT CONTRAST REASON FOR EXAM: Male, 63 years old. Ataxia, memory issues, hx panc ca TECHNIQUE: Standardized multiplanar fat and water weighted pulse sequences were obtained. COMPARISON: 10/08/2017. FINDINGS: No restricted diffusion to suspect acute or subacute ischemic infarct. Normal size of the ventricles and extra-axial spaces for the patient''s age. Subcortical white matter T2 FLAIR hyperintensity foci in both cerebral hemispheres are nonspecific. They''re most likely chronic white matter ischemic changes. They were present previously. No midline shift and no mass effects. Normal bilateral basal ganglia. Normal thalami. There is no extra-axial fluid accumulation. Normal flow voids within the major intracranial circulation suggesting patency by spin echo criteria. Normal sella turcica, pituitary gland, infundibular stalk, optic chiasm and hypothalamus. Normal tectal plate and pineal gland. Normal midbrain, vikki and medulla. Normal cerebellum. Normal basal cisterns. Decreased mucosal edema of the left temporal mastoid bone. Normal right temporal bone. Normal bilateral internal auditory canals. No demonstrated orbital abnormality, within the constraints of a routine brain study. Normal visualized paranasal sinuses. Normal calvarium and skull base. Normal visualized soft tissue structures. Normal visualized upper cervical spine. MRI/Brain without Contrast IMPRESSION: 1. No MRI evidence of acute or subacute ischemic infarct, intracranial mass or acute intracranial abnormality. 2. Chronic subcortical white matter ischemic changes in both cerebral hemispheres are unchanged. 3. Decrease mucosal edema of the left temporal mastoid bone when compared to 10/08/2017. Electronically Signed: Blade Mesa MD at 14:02 EDT , Service support ,
== END ==
PROVIDERS: PCP Preventive Medicine Occupational Medicine; Referring Provider Psychiatry & Neurology Neurology; Visit Provider Psychiatry & Neurology Neurology
DX: R27.0 Ataxia, unspecified (principal); Z79.01 Long term (current) use of anticoagulants
CPT/HCPCS: 36415; 70551; 85610

== ENCOUNTER 2019-12-01 11:07 | Outpatient (RCR) | payer MEDICARE, SELFPAY ==
[2019-09-19 13:05] VITALS: BMI 37.3
[2019-11-27 11:34] LABS: Prothrombin Time (Protime)PT. 58.6 SECONDS (11.7-14.9)
[2019-11-27 11:42] LABS: International Normalized Ratio 6.6
[2019-12-01 12:10] LABS: International Normalized Ratio 2.4; Prothrombin Time (Protime)PT. 26.4 SECONDS (11.7-14.9)
== END 2019-12-01 18:00 | disposition home or self-care (01) ==
LOC: LAB 11:07
PROVIDERS: Family Provider Preventive Medicine Occupational Medicine; PCP Preventive Medicine Occupational Medicine; Referring Provider Internal Medicine Cardiovascular Disease; Visit Provider Internal Medicine Cardiovascular Disease
DX: Z79.01 Long term (current) use of anticoagulants (principal)
CPT/HCPCS: 36415; 85610

== ENCOUNTER 2019-12-02 10:54 | Inpatient (IN) | payer MEDICARE, SELFPAY ==
[2019-09-19 13:05] VITALS: BMI 37.3
[2019-12-02] VITALS (27 sets, daily range): BP systolic 92–134; BP diastolic 60–97; PULSE 82–137; RESP 10–33; TEMP 36.3–38.3; O2SAT 93–99; BMI 35.9; BMI 35.8
--- NOTE | 2019-12-02 11:04 | EKG12_ITS ---
Test Reason : SOB Blood Pressure : / mmHG Vent. Rate : 124 BPM Atrial Rate : 068 BPM P-R Int : 000 ms QRS Dur : 152 ms QT Int : 394 ms P-R-T Axes : 000 031 153 degrees QTc Int : 566 ms Sinus tachycardia Left bundle branch block Abnormal ECG Confirmed by NAKITA MCLAIN, TOMA ([id number]), video editor RICCI MONTGOMERY ([id number] on 12/09/2019 1:57:49 PM Referred By: ORALIA Confirmed By:MARY MACE MD
--- NOTE | 2019-12-02 11:07 | ED.VIS.GEN ---
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 Patient is a poor historian and cannot provide much in the way of history. He tends to answer yes to most questions. He does admit to shortness of breath and cough for the past couple of days. He answers no when asked if he had a fever. He does tell me has a history of breathing problems but is not normally on oxygen. I am unable to verify this. He does report pain on his left side. - Past Medical History (1) Bipolar disorder Status: Chronic (2) COPD (chronic obstructive pulmonary disease) Status: Chronic (3) CVA (cerebral vascular accident) Status: Chronic (4) Dementia Status: Chronic (5) Depression Status: Chronic (6) GERD (gastroesophageal reflux disease) Status: Chronic (7) H/O aortic valve replacement Status: Chronic Comment: Mechanical, on Coumadin therapy 09/2004 [facility] @ [facility] (8) History of coronary artery stent placement Status: Chronic Comment: POBA-Anastomosis site of the MEDINA-LAD 06/16/2004 [facility] [id number] 03/2005 @ [facility] [id number] 07/15/2012 @ [facility] (9) Hypertension Status: Chronic (10) PUD (peptic ulcer disease) Status: Chronic (11) History of appendectomy Status: Resolved Past Medical History - Allergies and Home Meds Allergies/Adverse Reactions: Allergies iodine Allergy (Verified 12/02/19 11:01) Other low BP- does fine with premedication contrast dye Allergy (Uncoded 12/02/19 11:01) Shortness of breath Primary Care Physician: Bartolo Mitchell DO [Primary Care Provider] - Prior records reviewed: Yes Surgical History: angioplasty, appendectomy, cholecystectomy, coronary bypass surgery, tonsillectomy, - - mechanical aortic valve replacement Smoking Status: Former smoker - Family History Maternal Family History: Family History (Last Reviewed 10/23/19 @ 10:49 by ARMEN Cordero) Father CAD (coronary artery disease) Mother CAD (coronary artery disease) Sister CAD (coronary artery disease) CVA (cerebral vascular accident) Family History: Reports: No pertinent history Paternal Family History: Family History (Last Reviewed 10/23/19 @ 10:49 by ARMEN Cordero) Father CAD (coronary artery disease) Mother CAD (coronary artery disease) Sister CAD (coronary artery disease) CVA (cerebral vascular accident) Family History: Reports: Heart Disease, - - myocardial infarction Sibling Family History: Family History (Last Reviewed 10/23/19 @ 10:49 by ARMEN Cordero) Father CAD (coronary artery disease) Mother CAD (coronary artery disease) Sister CAD (coronary artery disease) CVA (cerebral vascular accident) Family History: Reports: No pertinent history Review of Systems General: Reports: - - Difficult to obtain review of systems secondary to patient answering yes to every question. He does answer no when asked about fever.. Denies: Fever Cardiovascular: Reports: Chest pain Respiratory: Reports: Dyspnea, Cough Gastrointestinal: Reports: Abdominal pain Musculoskeletal: Reports: Arthralgias Hematologic: Denies: Easy bruising Allergy: Denies: Uticaria Physical Exam Vital Signs/Narrative: Vital Signs Temp Pulse Resp BP Pulse Ox 12/02/19 10:55 99 F 137 H 33 H 134/97 H 95 Inital Vital Signs reviewed: Yes General: Well nourished, Well developed Head: Normocephalic ENT: Moist mucous membranes Neck: Supple Cardiovascular: Tachycardia Respiratory: Decreased Air Movement Abdomen: Soft, Nontender Extremities: Nontender, No edema Skin: Normal color Neurological: Alert Diagnostic/Tx/Re-eval 12/02/19 12:07 Chest 1 View (Portable) [RAD] Stat Chest x-ray per my review reveals no focal infiltrate. Laboratory Results 12/02/19 12/02/19 12/02/19 11:05 11:05 11:05 WBC 12.2 H RBC 4.48 L Hgb 14.8 Hct 43.5 MCV 97.1 H MCH 33.0 H MCHC 34.0 RDW Std Deviation 52.4 H RDW Coeff of Adalberto 15.0 H Plt Count 214 MPV 8.7 Immature Gran % (Auto) 0.500 Neut % (Auto) 83.7 H Lymph % (Auto) 7.7 L [place] % (Auto) 7.1 Eos % (Auto) 0.6 Baso % (Auto) 0.4 Absolute Neuts (auto) 10.2 H Absolute Lymphs (auto) 0.94 Nucleated RBC % 0 PT INR Sodium 141 Potassium 3.8 Chloride 110 H Carbon Dioxide 23.0 Anion Gap 8 BUN 15 Creatinine 1.12 Estim Creat Clear Calc 79.51 Est GFR (MDRD) Af Amer 85 Est GFR (MDRD) Non-Af 70 BUN/Creatinine Ratio 13.4 Glucose 83 Lactic Acid 3.1 H* Calcium 8.3 L Total Bilirubin 0.50 Direct Bilirubin 0.16 AST 22 ALT 32 Alkaline Phosphatase 158 H Troponin I < 0.015 B-Natriuretic Peptide Total Protein 7.5 Albumin 3.3 Globulin 4.2 Lipase 12/02/19 12/02/19 12/02/19 11:05 11:05 11:05 WBC RBC Hgb Hct MCV MCH MCHC RDW Std Deviation RDW Coeff of Adalberto Plt Count MPV Immature Gran % (Auto) Neut % (Auto) Lymph % (Auto) [place] % (Auto) Eos % (Auto) Baso % (Auto) Absolute Neuts (auto) Absolute Lymphs (auto) Nucleated RBC % PT 30.1 H INR 2.9 Sodium Potassium Chloride Carbon Dioxide Anion Gap BUN Creatinine Estim Creat Clear Calc Est GFR (MDRD) Af Amer Est GFR (MDRD) Non-Af BUN/Creatinine Ratio Glucose Lactic Acid Calcium Total Bilirubin Direct Bilirubin AST ALT Alkaline Phosphatase Troponin I B-Natriuretic Peptide 70.4 Total Protein Albumin Globulin Lipase 59 L - EKG Initial EKG Interpretation: - - Wide-complex QRS with left bundle branch block. This appears similar to EKG from November 16, 2018. At that time is felt patient likely had sinus tach with left bundle branch block. - Medical Decision Making Patient's O2 sats were in the mid 90s on 4 L nasal cannula at the initial time of my evaluation. DuoNeb treatment was ordered. When staff went in to give this patient was standing at bedside and was more agitated. He was given DuoNeb treatment and then started on CPAP. I was able to review prior pulmonary and cardiology records in the computer. It does appear the patient has asthma as well as COPD. He is not on home oxygen. He does supposedly wear CPAP at night. Patient was given 2 additional albuterol treatments with CPAP in place. Patient is currently in bed with respiratory rate around 20. He is still agitated and trying to pull out his monitoring leads, but not attempting to go to bed. I spoke with Dr. Norton who sees the patient from a pulmonary standpoint as an outpatient. He states the patient does have some degree of confusion with dementia, but this certainly sounds more profound than his baseline. He does tend to have asthma as a more prominent feature from a respiratory standpoint as opposed to COPD. We discussed treating patient as a asthma exacerbation for the first 24 hours and if we do not see significant improvement, will certainly require further testing for viral etiology such as coronavirus. Addendum: I spoke with the hospitalist. They requested CT scan of the head to make sure patient did not have a head bleed causing his confusion. This returns with some chronic changes but no acute bleed. Chest CT was also obtained with the patient was in CAT scan. This revealed some scarring at the lung bases but no other abnormality noted. Shortly after I initially spoke with the hospitalist patient's blood pressure did drop to 98/68. He was initiated on IV fluid bolus. Blood pressures responded appropriately with systolic pressure currently in the 120s. Heart rate is improved. Respiratory rate is 20 and O2 sat is 98 to 100% on CPAP. Patient is breathing much more comfortably. Nursing staff states that he does remain confused however is following more commands than he was on arrival. I will speak with hospitalist regarding admission. ED Disposition - Plan for ED Patient: Disposition: [facility] Diagnosis: Severe sepsis, Asthma exacerbation Referrals: Bartolo Mitchell DO [Primary Care Provider] -
[2019-12-02] MEDS: 0.9% Normal Saline 1,000 ML 150 ML IV ×2 (11:11→15:47)
[2019-12-02 11:21] LABS: Absolute Lymphocyte Count 0.94 X10^3/uL (0.83-4.51); Absolute Neutrophil Count 10.2 X10^3/uL (2.0-7.7); Basophil# 0.05 X10^3/uL; Basophil% 0.4 % (0-1); Eosinophil# 0.07 X10^3/uL; Eosinophils% 0.6 % (0-5); Hematocrit 43.5 % (40-54); Hemoglobin 14.8 g/dL (13.0-16.5); Lymphocyte # 0.94 X10^3/ul (4.0); Lymphocyte % 7.7 % (19-41); Mean Corpuscular Volume 97.1 fL (80-94); Mean Platelet Vol. 8.7 fl (6.2-12.0); Monocyte# 0.86 X10^3/uL; Monocyte% 7.1 % (0-10); NRBC Flagged by Analyzer 0 % (0-5); Neutrophil # 10.19 X10^3/uL (2.7-7.7); Neutrophil % 83.7 % (47-70); Platelet Count 214 K/mm3 (150-450); RBC Distribution Width SD 52.4 fl (35.1-43.9); Red Blood Count 4.48 M/mm3 (4.6-6.2); White Blood Count 12.2 K/mm3 (4.4-11.0)
[2019-12-02] MEDS: Ipratropium/Albuterol Sulfate 3 ML AMPUL.NEB INHALATION (11:29)
[2019-12-02 11:34] LABS: AST(SGOT) 22 U/L (15-37); Alanine Aminotransfer ALT/SGPT 32 U/L (16-61); Albumin, Serum 3.3 g/dL (3.2-5.0); Alkaline Phosphatase 158 U/L (45-117); Anion Gap 8 (5-15); BUN 15 mg/dL (7-18); BUN/Creat Ratio 13.4 RATIO (10-20); Bilirubin, Direct 0.16 mg/dL (0.00-0.30); Calcium,Total 8.3 mg/dL (8.5-10.1); Chloride 110 mmol/L (98-107); Creatinine, Serum 1.12 mg/dL (0.70-1.30); EST Glomerular Filtration Rate 70 mL/min (>60); Est Glom Filt Rate - Afr Amer 85 mL/min (>60); Estimated Creatinine Clearance 79.51 ml/min; Globulin 4.2 g/dL (2.2-4.2); Glucose 83 mg/dL (74-106); Potassium 3.8 mmol/L (3.5-5.1); Protein, Total 7.5 g/dL (6.4-8.2); Sodium Level 141 mmol/L (136-145)
[2019-12-02] MEDS: MethylPREDNISolone 125 MG/2 ML Vial IV (11:37)
[2019-12-02 11:44] LABS: BNP,B-Type NATRIURETIC PEPTIDE 70.4 pg/mL (0-100); Lactic Acid 3.1 mmol/L (0.4-1.9)
[2019-12-02] MEDS: Albuterol 2.5 MG/3 ML VIAL.NEB. INHALATION ×3 (11:48→19:45)
[2019-12-02 11:56] LABS: International Normalized Ratio 2.9; Prothrombin Time (Protime)PT. 30.1 SECONDS (11.7-14.9)
[2019-12-02 11:58] LABS: Lipase 59 U/L (73-393)
--- NOTE | 2019-12-02 12:07 | RAD_ITS ---
STUDY: X-RAY CHEST REASON FOR EXAM: Male, 63 years old. Sob, copd; -- H/O [place] TECHNIQUE: Single AP portable view of the chest. COMPARISON: Comparison is made with prior study dated September 19, 2019. FINDINGS: Stable mild increased linear markings at the left lung base suggestive of scarring. There is no demonstrated pleural abnormality. Sternal cerclage wires and vascular clips are present from a prior sternotomy and coronary artery bypass graft procedure (CABG). Recording device is seen in the left axillary region. Normal mediastinum and damian. Normal visualized pulmonary arteries. There is atherosclerotic calcification of the aortic arch with tortuosity. Normal visualized thoracic spine. There is degenerative osteoarthritis of the bilateral shoulders. There is no demonstrated abnormality of the visualized soft tissue structures of the upper abdomen. RAD/Chest 1 View (Portable) IMPRESSION: Stable mild increased markings at the left lung base suggestive of scarring. Electronically Signed: Floyd Lobato, at 12:41 EDT , Service support ,
[2019-12-02] MEDS: Ceftriaxone 1 GM/50 ML BAG IV (12:46)
[2019-12-02] MEDS: 0.9% Normal Saline 1,000 ML 999 ML IV ×2 (12:51→12:52)
--- NOTE | 2019-12-02 12:55 | CT_ITS ---
STUDY: CT BRAIN WITHOUT CONTRAST REASON FOR EXAM: Male, 63 years old. CONFUSION, DYSPNEA, HX-COPD, ASTHMA, GERD, MAGDALENO G-AORTIC VALVE REPLACEMENT, APPY, CABG RADIATION DOSAGE (If Supplied By Facility): CTDIvol = ( 44.99 ) mGy, DLP = ( 812.98 ) mGycm TECHNIQUE: Transaxial CT imaging of the brain was performed without administration of intravenous contrast material. Individualized dose optimization techniques were used for this CT. COMPARISON: Comparison is made with prior examination dated November 21, 2013. FINDINGS: Normal soft tissue structures. Normal calvarium. There is mild cerebral atrophy with widening of the extra-axial spaces and ventricular dilatation. Normal white matter tracts of the cerebral hemispheres. Normal basal ganglia and thalami. Normal brainstem. Normal cerebellum. There is no intracranial hemorrhage. There are no findings of an acute ischemic infarction. Atherosclerotic calcification of the cavernous portions of the internal carotid arteries bilaterally. Normal visualized paranasal sinuses. CT/Brain/Head without Contrast IMPRESSION: Chronic involutional changes of the brain. Electronically Signed: Floyd Lobato, at 13:34 EDT , Service support ,
--- NOTE | 2019-12-02 13:05 | CT_ITS ---
STUDY: CT CHEST WITHOUT CONTRAST REASON FOR EXAM: Male, 63 years old. CONFUSION, DYSPNEA, HX-COPD, ASTHMA, GERD, SURG-AORTIC VALVE REPLACEMENT, APPY, CABG RADIATION DOSAGE (If Supplied By Facility): CTDIvol = ( 20.14 ) mGy, DLP = ( 744.86 ) mGycm TECHNIQUE: Transaxial imaging was performed without the administration of intravenous contrast material. Multiplanar coronal and sagittal images were reformatted. Individualized dose optimization techniques were used for this CT. COMPARISON: Comparison is made with prior examination dated September 12, 2018. FINDINGS: Stable mild degree of scarring in the upper lobes. Since prior study, there has been progressive increased interstitial markings at the lung bases with areas of confluence suggestive of a progressive scarring. No focal consolidation is seen. There is no demonstrated pleural abnormality. Sternal cerclage wires and vascular clips are present from a prior sternotomy and coronary artery bypass graft procedure (CABG). The patient is status post aortic valve replacement. There are calcifications of the coronary arteries. There are multiple small lymph nodes within the mediastinum, which are normal in size and morphology most compatible with reactive lymph hyperplasia. Normal hilar regions. Normal unenhanced pulmonary arteries. There is atherosclerotic calcification of the aortic arch with tortuosity and elongation of the aortic arch and descending thoracic aorta. There is dilatation of the ascending thoracic aorta with a transverse dimension of 4.5 cm. Normal osseous structures. The patient is status post cholecystectomy. CT/Chest without Contrast IMPRESSION: Progressive increased markings at the lung bases suggestive of scarring. Electronically Signed: Floyd Lobato, at 13:47 EDT , Service support ,
--- NOTE | 2019-12-02 13:37 | ED.RN ---
called pt's to update on patient's status. will call when we have a room number to inform her.
[2019-12-02] MEDS: Acetaminophen 650 MG/20 ML UDC PO (13:58)
--- NOTE | 2019-12-02 14:23 | NURSING ---
ICU PAINTSIL SEVERE SEPSIS
--- NOTE | 2019-12-02 14:28 | PCM.HP.STD ---
Problem List (1) Respiratory failure Status: Acute Qualifiers: Chronicity: acute Respiratory failure complication: unspecified whether with hypoxia or hypercapnia Qualified Code(s): J96.00 - Acute respiratory failure, unspecified whether with hypoxia or hypercapnia (2) Fever Status: Acute Qualifiers: Fever type: unspecified Qualified Code(s): R50.9 - Fever, unspecified History of Present Illness Date of Admission: 12/02/19 Chief Complaint: Shortness of breath, chest pain, fever - 3 days The patient is a 63 year old M with past medical history of COPD/asthma, CAD status post CABG, Hypertension who comes in with progressive SOB and fever. Patient denies any sick contacts. He lives at home with his . He states that he started having chest wall discomfort with shortness of breath. His cough is nonproductive. He denies wearing oxygen at home. Patient is a poor historian. His vitals in the ED show Tmax 101F, HR 121, lowest BP 98/68, average BP 132/82, RR 30, He was saturating 95% on 4L and then started on Bipap. His WBC count is 12.2, hemoglobin 14.8, platelet 214, INR 2.8, sodium 141, potassium 3.8, chloride 110, bicarbonate 23, BUN 15, creatinine 1.12, lactic acid 3.1. Chest x-ray showed stable mild increased markings left lung suggestive of scarring. Discussed of the brain showed chronic involutional changes. Chest CT show progressive increased markings at the lung bases suggestive of scarring. Past Medical History Past Medical History (Chronic Problems): Chronic Problems (Last Reviewed 10/23/19 @ 10:49 by Lilliam Denney NP-C) CVA (cerebral vascular accident) (Chronic) GERD (gastroesophageal reflux disease) (Chronic) COPD (chronic obstructive pulmonary disease) (Chronic) Bipolar 1 disorder (Chronic) Depression (Chronic) Obstructive sleep apnea (Chronic) Lumbar disc disease (Chronic) Arthritis (Chronic) Syncope and collapse (Chronic) Peptic ulcer disease (Chronic) Status post placement of implantable loop recorder (Chronic ~2004) Dementia (Chronic) Bipolar disorder (Chronic) GERD (gastroesophageal reflux disease) (Chronic) CVA (cerebral vascular accident) (Chronic) PUD (peptic ulcer disease) (Chronic) Obesity (BMI 30-39.9) (Chronic) Stage 1 mild COPD by GOLD classification (Chronic) Lung nodule (Chronic) Repeat CT of the chest due September 12, 2019 JAMES (obstructive sleep apnea) (Chronic) AHI 16.7 - noncompliant 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 of anticoagulants (Chronic) Nonrheumatic aortic (valve) stenosis with insufficiency (Chronic) Atherosclerosis of coronary artery of [place] heart without angina pectoris (Chronic) CABG MEDINA-LAD, SVG-D1, SVG-OM1, SVG-PDA 01/2003 POBA-Anastomosis site of the MEDINA-LAD 06/16/2004 [facility] ZBR-VZH-Lti-RCA 03/2005 ZCV-QWL-CYD-D1 07/15/2012 @ [facility] History of coronary artery stent placement (Chronic) POBA-Anastomosis site of the MEDINA-LAD 06/16/2004 [facility] IOQ-EES-Jds-RCA 03/2005 @ [facility] [id number]-KDX-[id number]-D1 07/15/2012 @ [facility] Presence of aortocoronary bypass graft (Chronic ~01/2003) MEDINA-LAD, SVG-D1, SVG-OM1, SVG-PDA 01/2003 @ [facility] H/O aortic valve replacement (Chronic ~09/2004) Mechanical, on Coumadin therapy 09/2004 [facility] @ [facility] Hypertension (Chronic) Medical History: Medical History (Last Reviewed 10/23/19 @ 10:49 by Lilliam Denney PROFESSOR [employer]IC[employer]-C) CVA (cerebral vascular accident) (Chronic) I63.9 GERD (gastroesophageal reflux disease) (Chronic) K21.9 COPD (chronic obstructive pulmonary disease) (Chronic) J44.9 Bipolar 1 disorder (Chronic) F31.9 Depression (Chronic) F32.9 Bicuspid aortic valve (Resolved) Q23.1 Obstructive sleep apnea (Chronic) G47.33 Lumbar disc disease (Chronic) M51.9 Arthritis (Chronic) M19.90 Syncope and collapse (Chronic) R55 Peptic ulcer disease (Chronic) K27.9 Status post placement of implantable loop recorder (Chronic) Onset Date: ~2004 Z95.818 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 of anticoagulants (Chronic) Z79.01 Nonrheumatic aortic (valve) stenosis with insufficiency (Chronic) I35.2 Atherosclerosis of coronary artery of [place] heart without angina pectoris (Chronic) I25.10 CABG MEDINA-LAD, SVG-D1, SVG-OM1, SVG-PDA 01/2003 POBA-Anastomosis site of the MEDINA-LAD 06/16/2004 [facility] YFQ-DKG-Elp-RCA 03/2005 CBQ-MSK-GVO-D1 07/15/2012 @ [facility] Hypertension (Chronic) I10 Non-ST elevation (NSTEMI) myocardial infarction (Inactive) I21.4 Allergies iodine Allergy (Verified 12/02/19 11:01) Other low BP- does fine with premedication contrast dye Allergy (Uncoded 12/02/19 11:01) Shortness of breath Home Medications: Ambulatory Orders Medication Instructions Recorded Benztropine [Cogentin] 0.5 mg PO TID 10/20/15 Clopidogrel Bisulfate [Plavix] 75 mg PO DAILY 10/20/15 Risperidone [Risperdal] 4 mg PO BID 10/20/15 Pantoprazole Sodium [Protonix] 40 mg PO BID 02/01/17 Tamsulosin HCl [Flomax] 0.4 mg PO QHS 02/01/17 bupropion HCl 150 mg 24 hr tablet, 150 mg PO QAM 09/12/18 extended release buspirone 10 mg tablet 15 mg PO TID 09/12/18 cetirizine 10 mg tablet 10 mg PO DAILY 09/12/18 fluoxetine 60 mg tablet 40 mg PO DAILY 09/12/18 naltrexone 50 mg tablet 50 mg PO DAILY 09/12/18 potassium chloride 10 mEq 10 meq PO DAILY 09/12/18 capsule,extended release acapella See Rx Instructions .ROUTE 09/16/18 .MEDSUPPLY #1 ea metoprolol tartrate 25 mg tablet 12.5 mg PO BID #30 tab 09/17/18 Donepezil HCl 10 mg PO QHS 10/03/18 albuterol sulfate 2.5 mg INHALATION Q4H PRN #180 ml 10/23/18 Guaifenesin [Mucinex] 1,200 mg PO BID #20 tab 11/17/18 Meloxicam 15 mg PO DAILY PRN PRN #20 tab 03/11/19 fluticasone 500 mcg-salmeterol 50 1 inh INHALATION BID 03/24/19 mcg/dose blistr powdr for inhalation furosemide 40 mg tablet 40 mg PO DAILY #30 tab 09/19/19 mepolizumab 100 mg/mL subcutaneous 100 mg SC Q4W #1 ml 10/22/19 syringe montelukast 10 mg tablet 10 mg PO QPM #30 tab 10/22/19 Warfarin Sodium [Coumadin] 6 mg PO TUWETH 12/02/19 Warfarin Sodium [Coumadin] 7.5 mg PO SUMOFRSA 12/02/19 Surgical History: Surgical History (Last Reviewed 10/23/19 @ 10:49 by ARMEN Cordero) Abdominal Aortagram (Resolved) Onset Date: ~08/18/[address] [address] Siegel History of left heart catheterization (Resolved) Onset Date: ~10/22/15 Z98.890 History of appendectomy (Resolved) Z98.890, Z90.49 History of repair of right rotator cuff (Resolved) Z98.890 History of lumbar spinal fusion (Resolved) Onset Date: ~06/29/14 Z98.1 History of coronary artery stent placement (Chronic) Z95.5 POBA-Anastomosis site of the MEDINA-LAD 06/16/2004 [facility] QIN-KLH-Qjd-RCA 03/2005 @ [facility] FXX-HJX-TMS-D1 07/15/2012 @ [facility] Presence of aortocoronary bypass graft (Chronic) Onset Date: ~01/2003 Z95.1 MEDINA-LAD, SVG-D1, SVG-OM1, SVG-PDA 01/2003 @ [facility] H/O aortic valve replacement (Chronic) Onset Date: ~09/2004 Z95.2 Mechanical, on Coumadin therapy 09/2004 [facility] @ [facility] Surgical History: angioplasty, appendectomy, cholecystectomy, coronary bypass surgery, tonsillectomy, - - mechanical aortic valve replacement Psychiatric History: Bipolar Lives: Spouse/ Significant Other Smoking Status: Former smoker Tobacco Use: Non-smoker Alcohol: None - *Family History Maternal Family History: Family History (Last Reviewed 10/23/19 @ 10:49 by ARMEN Cordero) Father CAD (coronary artery disease) Mother CAD (coronary artery disease) Sister CAD (coronary artery disease) CVA (cerebral vascular accident) History Items: No pertinent history Paternal Family History: Family History (Last Reviewed 10/23/19 @ 10:49 by ARMEN Cordero) Father CAD (coronary artery disease) Mother CAD (coronary artery disease) Sister CAD (coronary artery disease) CVA (cerebral vascular accident) History Items: Heart Disease, - - myocardial infarction Sibling Family History: Family History (Last Reviewed 10/23/19 @ 10:49 by ARMEN Cordero) Father CAD (coronary artery disease) Mother CAD (coronary artery disease) Sister CAD (coronary artery disease) CVA (cerebral vascular accident) History Items: No pertinent history Review of Systems Unable to obtain accurate/complete ROS d/t: Unable to reliably get ROS as patient is on Bipap and is a poor historian VTE Information - Inpt Only VTE Present on Admission: No VTE Pharm Prophylaxis ordered?: Yes Patient Problems: Active and Suspected Problems (Last Reviewed 10/23/19 @ 10:49 by ARMEN Cordero) Asthma exacerbation (Acute) Respiratory failure (Acute) Fever (Acute) Severe sepsis (Acute) - Physical Exam Vitals/I&O's: Vital Signs Temp Pulse Resp BP Pulse Ox 101 F H 112 H 24 H 132/82 H 98 12/02/19 13:47 12/02/19 13:47 12/02/19 13:47 12/02/19 13:47 12/02/19 13:47 Oxygen Flow Rate (L/min) 4 Oxygen Delivery Method Bi-pap Weight: 127.1 kg Body Mass Index (BMI) 35.9 Intake and Output for Last 24 Hours 11/30/19 12/01/19 12/02/19 23:59 23:59 23:59 Intake Total 2305.0 / 2305.0 Balance 2305.0 / 2305.0 General: Alert, Oriented x3, Cooperative HEENT: Atraumatic, PERRLA, EOMI, Normocephalic Neck: Supple, No JVD, Negative Carotid Bruits Lungs: Clear to auscultation, Normal air movement Cardiovascular: Regular rate, No murmurs Abdomen: Bowel Sounds Present, Soft, Non Tender Extremities: No edema, Capillary Refill Less than 3 Seconds Skin: No rashes, No breakdown Musculoskeletal: No Tenderness to Palpation of Joints or Extremities Neurological: Cranial nerves II-XII grossly intact Psych/Mental Status: Normal Affect, Appropriate Laboratory Results 12/02/19 11:05: WBC 12.2 H, RBC 4.48 L, Hgb 14.8, Hct 43.5, MCV 97.1 H, MCH 33.0 H, MCHC 34.0, RDW Std Deviation 52.4 H, RDW Coeff of Adalberto 15.0 H, Plt Count 214, MPV 8.7, Immature Gran % (Auto) 0.500, Neut % (Auto) 83.7 H, Lymph % (Auto) 7.7 L, [place] % (Auto) 7.1, Eos % (Auto) 0.6, Baso % (Auto) 0.4, Absolute Neuts (auto) 10.2 H, Absolute Lymphs (auto) 0.94, Nucleated RBC % 0 12/02/19 11:05: Sodium 141, Potassium 3.8, Chloride 110 H, Carbon Dioxide 23.0, Anion Gap 8, BUN 15, Creatinine 1.12, Estim Creat Clear Calc 79.51, Est GFR (MDRD) Af Amer 85, Est GFR (MDRD) Non-Af 70, BUN/Creatinine Ratio 13.4, Glucose 83, Calcium 8.3 L, Total Bilirubin 0.50, Direct Bilirubin 0.16, AST 22, ALT 32, Alkaline Phosphatase 158 H, Troponin I < 0.015, Total Protein 7.5, Albumin 3.3, Globulin 4.2 12/02/19 11:05: Lactic Acid 3.1 H* 12/02/19 11:05: B-Natriuretic Peptide 70.4 12/02/19 11:05: PT 30.1 H, INR 2.9 12/02/19 11:05: Lipase 59 L Current Medications Sodium Chloride () 1,000 mls @ 150 mls/hr IV .Q6H40M [facility] Last Infusion: 12/02/19 13:28 Dose: Infused Documented by: Assessment/Plan All Active Problems (Last Reviewed 10/23/19 @ 10:49 by Lilliam Denney, JOB-C) Asthma exacerbation (Acute) Respiratory failure (Acute) Fever (Acute) Abdominal Aortagram (Resolved ~08/18/13) History of left heart catheterization (Resolved ~10/22/15) Bicuspid aortic valve (Resolved) History of appendectomy (Resolved) History of repair of right rotator cuff (Resolved) History of lumbar spinal fusion (Resolved ~06/29/14) Community acquired pneumonia (Acute) COPD with exacerbation (Acute) Hypotension (Acute) Dehydration (Acute) Chest pain, unspecified (Acute) Severe sepsis (Acute) Respiratory insufficiency (Acute) Chest pain, unspecified (Resolved) 63 year old M with past medical history of COPD/asthma, CAD status post CABG, Hypertension who comes in with progressive SOB and fever. 1. Acute respiratory failure, unclear etiology, in a patient not on oxygen at home Currently on Bipap Less likely secondary to acute asthma exacerbation as pt had no wheezes on exam. Presented with fever, leukocytosis, lymphopenia Respiratory panel is negative Would need to rule out COVID-19 in the light of this pandemic Admit to ICU, follow airborne protocols 2. Lactic acidosis, admitting lactic acid of 3.1, likely related to hypoxia Will continue to monitor 3. Acute metabolic encephalopathy in a patient with cognitive impairment CT scan of brain shows chronic involutional changes. 4. Hypertension, controlled, initially slightly low, later responsive to fluids Will hold metoprolol for now, will resume if stable 5. CAD s/p CABG/h/o CVA/h/o aortic valve replacement/chronic combined CHF INR is therapeutic at 2.9, continue on coumadin, Plavix, metoprolol on hold for now. 6. Anxiety/depression, on Bupropion, Buspar, Risperidone 7. DVT PPx- INR was therapeutic, 2.9 8. Code status -DNR CCA Discussed in detail with the patient explaining the various types of CODE STATUS-full code, DNR CCA, DNR CC. Patient stated that he did not want to be intubated and kept on artificial support. I am going to keep this CODE STATUS for now. Patient seemed very lucid and understood what I meant. Granted that he came in confused and is reported to have improved tremendously, I will discuss this again with the . Attempts at calling all the phone numbers listed in the system went to voicemail. Will agree to DNR CCA for now and reevaluate that again in a couple of hours. Inpatient E&M: 27841 Init Hosp L3 Procedures: 35639 Advncd Care Plan 30 Min
--- NOTE | 2019-12-02 14:31 | NURSING ---
ICU 2
[2019-12-02 15:11] LABS: Reflex Lactate? Y
--- NOTE | 2019-12-02 15:15 | CPS ---
pt moved to icu on 4 l/m nc-pt placed back on bipap due to sl sob from moving beds.
[2019-12-02] MEDS: 0.9% Normal Saline 1,000 ML 75 ML IV (16:00)
[2019-12-02 16:13] LABS: Lactic Acid 2.7 mmol/L (0.4-1.9)
--- NOTE | 2019-12-02 16:25 | CON.PCM_ITS ---
Problem List (1) Asthma exacerbation Status: Acute Qualifiers: Asthma severity: severe Asthma persistence: persistent Qualified Code(s): J45.51 - Severe persistent asthma with (acute) exacerbation (2) Respiratory failure Status: Acute Qualifiers: Chronicity: acute Respiratory failure complication: unspecified whether with hypoxia or hypercapnia Qualified Code(s): J96.00 - Acute respiratory failure, unspecified whether with hypoxia or hypercapnia (3) CVA (cerebral vascular accident) Status: Chronic (4) GERD (gastroesophageal reflux disease) Status: Chronic (5) COPD (chronic obstructive pulmonary disease) Status: Chronic Qualifiers: COPD type: unspecified COPD Qualified Code(s): J44.9 - Chronic obstructive pulmonary disease, unspecified (6) Bipolar 1 disorder Status: Chronic (7) Depression Status: Chronic (8) Bicuspid aortic valve Status: Resolved (9) Obstructive sleep apnea Status: Chronic (10) Peptic ulcer disease Status: Chronic (11) Status post placement of implantable loop recorder Status: Chronic (12) History of appendectomy Status: Resolved (13) History of repair of right rotator cuff Status: Resolved (14) History of lumbar spinal fusion Status: Resolved (15) Dementia Status: Chronic (16) PUD (peptic ulcer disease) Status: Chronic (17) Obesity (BMI 30-39.9) Status: Chronic (18) Stage 1 mild COPD by GOLD classification Status: Chronic (19) History of coronary artery stent placement Status: Chronic Comment: POBA-Anastomosis site of the MEDINA-LAD 06/16/2004 [facility] [id number] 03/2005 @ [facility] [id number] 07/15/2012 @ [facility] (20) Presence of aortocoronary bypass graft Status: Chronic Comment: MEDINA-LAD, SVG-D1, SVG-OM1, SVG-PDA 01/2003 @ [facility] (21) H/O aortic valve replacement Status: Chronic Comment: Mechanical, on Coumadin therapy 09/2004 [facility] @ [facility] Reason for Consult Date of Consultation: 12/02/19 History of Present Illness: The patient is a 63 year old M, with past medical history listed below and well- known to me from the outpatient office, who presented to [facility] via EMS secondary to shortness of breath. Patient had admitted to some shortness of breath and cough, but became very confused when asked additional questions. Patient is not normally on oxygen, but was hypoxic on presentation. Patient was very confused and unable to provide additional information. In the ER, patient was requiring 4 L nasal cannula to maintain appropriate saturations. Patient had received DuoNeb and was started on BiPAP therapy. Patient received an additional 2 albuterol units with some improvement. Patient was confused and agitated and pulling off leads. After discussing with the hospitalist, a CT scan of the head and chest were obtained. Patient was noted to have a decrease in blood pressure to 98/68 and was initiated on a 30 cc/kg fluid bolus. Patient was then transferred to the intensive care unit. On my evaluation in the intensive care unit, patient was more directable. Past Medical History Past Medical History (Chronic Problems): Chronic Problems (Last Reviewed 10/23/19 @ 10:49 by Lilliam Denney NP-C) CVA (cerebral vascular accident) (Chronic) GERD (gastroesophageal reflux disease) (Chronic) COPD (chronic obstructive pulmonary disease) (Chronic) Bipolar 1 disorder (Chronic) Depression (Chronic) Obstructive sleep apnea (Chronic) Lumbar disc disease (Chronic) Arthritis (Chronic) Syncope and collapse (Chronic) Peptic ulcer disease (Chronic) Status post placement of implantable loop recorder (Chronic ~2004) Dementia (Chronic) Bipolar disorder (Chronic) GERD (gastroesophageal reflux disease) (Chronic) CVA (cerebral vascular accident) (Chronic) PUD (peptic ulcer disease) (Chronic) Obesity (BMI 30-39.9) (Chronic) Stage 1 mild COPD by GOLD classification (Chronic) Lung nodule (Chronic) Repeat CT of the chest due September 12, 2019 JAMES (obstructive sleep apnea) (Chronic) 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) use of anticoagulants (Chronic) Nonrheumatic aortic (valve) stenosis with insufficiency (Chronic) Atherosclerosis of coronary artery of [place] heart without angina pectoris (Chronic) CABG MEDINA-LAD, SVG-D1, SVG-OM1, SVG-PDA 01/2003 POBA-Anastomosis site of the MEDINA-LAD 06/16/2004 [facility] [id number] 03/2005 [id number] 07/15/2012 @ [facility] History of coronary artery stent placement (Chronic) POBA-Anastomosis site of the MEDINA-LAD 06/16/2004 [facility] [id number] 03/2005 @ [facility] [id number] 07/15/2012 @ [facility] Presence of aortocoronary bypass graft (Chronic ~01/2003) MEDINA-LAD, SVG-D1, SVG-OM1, SVG-PDA 01/2003 @ [facility] H/O aortic valve replacement (Chronic ~09/2004) Mechanical, on Coumadin therapy 09/2004 [facility] Valve @ [facility] Hypertension (Chronic) Medical History: Medical History (Last Reviewed 10/23/19 @ 10:49 by Lilliam Denney, JOB-C) CVA (cerebral vascular accident) (Chronic) I63.9 GERD (gastroesophageal reflux disease) (Chronic) K21.9 COPD (chronic obstructive pulmonary disease) (Chronic) J44.9 Bipolar 1 disorder (Chronic) F31.9 Depression (Chronic) F32.9 Bicuspid aortic valve (Resolved) Q23.1 Obstructive sleep apnea (Chronic) G47.33 Lumbar disc disease (Chronic) M51.9 Arthritis (Chronic) M19.90 Syncope and collapse (Chronic) R55 Peptic ulcer disease (Chronic) K27.9 Status post placement of implantable loop recorder (Chronic) Onset Date: ~2004 Z95.818 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) use of anticoagulants (Chronic) Z79.01 Nonrheumatic aortic (valve) stenosis with insufficiency (Chronic) I35.2 Atherosclerosis of coronary artery of [place] heart without angina pectoris (Chronic) I25.10 CABG MEDINA-LAD, SVG-D1, SVG-OM1, SVG-PDA 01/2003 POBA-Anastomosis site of the MEDINA-LAD 06/16/2004 [facility] [id number] 03/2005 [id number] 07/15/2012 @ [facility] Hypertension (Chronic) I10 Non-ST elevation (NSTEMI) myocardial infarction (Inactive) I21.4 Allergies iodine Allergy (Verified 12/02/19 11:01) Other low BP- does fine with premedication contrast dye Allergy (Uncoded 12/02/19 11:01) Shortness of breath Home Medications: Ambulatory Orders Medication Instructions Recorded Benztropine [Cogentin] 0.5 mg PO TID 10/20/15 Clopidogrel Bisulfate [Plavix] 75 mg PO DAILY 10/20/15 Risperidone [Risperdal] 4 mg PO BID 10/20/15 Pantoprazole Sodium [Protonix] 40 mg PO BID 02/01/17 Tamsulosin HCl [Flomax] 0.4 mg PO QHS 02/01/17 bupropion HCl 150 mg 24 hr tablet, 150 mg PO QAM 09/12/18 extended release buspirone 10 mg tablet 15 mg PO TID 09/12/18 cetirizine 10 mg tablet 10 mg PO DAILY 09/12/18 fluoxetine 60 mg tablet 40 mg PO DAILY 09/12/18 naltrexone 50 mg tablet 50 mg PO DAILY 09/12/18 potassium chloride 10 mEq 10 meq PO DAILY 09/12/18 capsule,extended release acapella See Rx Instructions .ROUTE 09/16/18 .MEDSUPPLY #1 ea metoprolol tartrate 25 mg tablet 12.5 mg PO BID #30 tab 09/17/18 Donepezil HCl 10 mg PO QHS 10/03/18 albuterol sulfate 2.5 mg INHALATION Q4H PRN #180 ml 10/23/18 Guaifenesin [Mucinex] 1,200 mg PO BID #20 tab 11/17/18 Meloxicam 15 mg PO DAILY PRN PRN #20 tab 03/11/19 fluticasone 500 mcg-salmeterol 50 1 inh INHALATION BID 03/24/19 mcg/dose blistr powdr for inhalation furosemide 40 mg tablet 40 mg PO DAILY #30 tab 09/19/19 mepolizumab 100 mg/mL subcutaneous 100 mg SC Q4W #1 ml 10/22/19 syringe montelukast 10 mg tablet 10 mg PO QPM #30 tab 10/22/19 Warfarin Sodium [Coumadin] 6 mg PO TUWETH 12/02/19 Warfarin Sodium [Coumadin] 7.5 mg PO SUMOFRSA 12/02/19 Surgical History: Surgical History (Last Reviewed 10/23/19 @ 10:49 by Lilliam Denney NP-C) Abdominal Aortagram (Resolved) Onset Date: ~08/18/[address] [address] Siegel History of left heart catheterization (Resolved) Onset Date: ~10/22/15 Z98.890 History of appendectomy (Resolved) Z98.890, Z90.49 History of repair of right rotator cuff (Resolved) Z98.890 History of lumbar spinal fusion (Resolved) Onset Date: ~06/29/14 Z98.1 History of coronary artery stent placement (Chronic) Z95.5 POBA-Anastomosis site of the MEDINA-LAD 06/16/2004 [facility] [id number] 03/2005 @ [facility] [id number] 07/15/2012 @ [facility] Presence of aortocoronary bypass graft (Chronic) Onset Date: ~01/2003 Z95.1 MEDINA-LAD, SVG-D1, SVG-OM1, SVG-PDA 01/2003 @ [facility] H/O aortic valve replacement (Chronic) Onset Date: ~09/2004 Z95.2 Mechanical, on Coumadin therapy 09/2004 [facility] Valve @ [facility] Surgical History: angioplasty, appendectomy, cholecystectomy, coronary bypass surgery, tonsillectomy, - - mechanical aortic valve replacement Psychiatric History: Bipolar Lives: Spouse/ Significant Other Smoking Status: Former smoker Tobacco Use: Non-smoker Alcohol: None - *Family History Maternal Family History: Family History (Last Reviewed 10/23/19 @ 10:49 by ARMEN Cordero) Father CAD (coronary artery disease) Mother CAD (coronary artery disease) Sister CAD (coronary artery disease) CVA (cerebral vascular accident) History Items: No pertinent history Paternal Family History: Family History (Last Reviewed 10/23/19 @ 10:49 by ARMEN Cordero) Father CAD (coronary artery disease) Mother CAD (coronary artery disease) Sister CAD (coronary artery disease) CVA (cerebral vascular accident) History Items: Heart Disease, - - myocardial infarction Sibling Family History: Family History (Last Reviewed 10/23/19 @ 10:49 by ARMEN Cordero) Father CAD (coronary artery disease) Mother CAD (coronary artery disease) Sister CAD (coronary artery disease) CVA (cerebral vascular accident) History Items: No pertinent history Patient Problems: Active and Suspected Problems (Last Reviewed 10/23/19 @ 10:49 by ARMEN Cordero) Asthma exacerbation (Acute) Respiratory failure (Acute) Fever (Acute) Severe sepsis (Acute) Objective: CT scan of the chest was personally reviewed. This does show what I believe to be an early right lower lobe infiltrate, but there is significant motion art ifact. Complete PFT (10/09/2019): Partially reversible mild large airways obstructive ventilatory defect resulting in air trapping and a reduction in DLCO. (FVC 97%, FEV1 86%, TLC 115%, RV 151%, DLCO 64%) MRI (11/27/2019): No acute infarct with chronic subcortical white matter changes and improved mucosal edema of the left temporal mastoid bone. Stress echo (10/03/2019): EF 55% with left bundle branch block noted. - Physical Exam Vitals/I&O's: Vital Signs Temp Pulse Resp BP Pulse Ox 37.6 C H 107 H 23 H 122/78 H 98 12/02/19 14:41 12/02/19 15:13 12/02/19 15:13 12/02/19 14:41 12/02/19 15:13 Oxygen Flow Rate (L/min) 4 Oxygen Delivery Method Room Air Weight: 127.1 kg Body Mass Index (BMI) 35.9 Intake and Output for Last 24 Hours 11/30/19 12/01/19 12/02/19 23:59 23:59 23:59 Intake Total 3305.0 / 3305.0 Balance 3305.0 / 3305.0 General: Cooperative, Confused, Disoriented HEENT: Atraumatic, PERRLA, EOMI, Normocephalic Oral: Moist Mucosa, No Gingival or Mucosal Lesions/ Ulcerations Neck: Supple, No JVD, No Nodes, Trachea Midline Lungs: No wheeze, No rales, Diminished, Rhonchi - Right base Cardiovascular: Regular rate, Regular Rhythm, Normal S1, Normal S2, No murmurs, No rub noted, No Gallop Abdomen: Bowel Sounds Present, Soft, Non Tender, Non-Distended Extremities: No clubbing, No cyanosis, No edema, Capillary Refill Less than 3 Seconds Skin: No rashes, - - Bruising Musculoskeletal: No Tenderness to Palpation of Joints or Extremities Lymphatic: No Cervical, Supraclavicular, or Inguinal Adenopathy Neurological: Cranial nerves II-XII grossly intact, Neuro grossly intact, Motor Exam 5/5 strength throughout Psych/Mental Status: Agitated, Impulsive, Restless Microbiology Past 72 Hours 12/02/19 11:16 Mucosa - Nasopharyngeal Respiratory Panel (PCR) - Final Laboratory Results 12/02/19 11:05: WBC 12.2 H, RBC 4.48 L, Hgb 14.8, Hct 43.5, MCV 97.1 H, MCH 33.0 H, MCHC 34.0, RDW Std Deviation 52.4 H, RDW Coeff of Adalberto 15.0 H, Plt Count 214, MPV 8.7, Immature Gran % (Auto) 0.500, Neut % (Auto) 83.7 H, Lymph % (Auto) 7.7 L, [place] % (Auto) 7.1, Eos % (Auto) 0.6, Baso % (Auto) 0.4, Absolute Neuts (auto) 10.2 H, Absolute Lymphs (auto) 0.94, Nucleated RBC % 0 12/02/19 11:05: Sodium 141, Potassium 3.8, Chloride 110 H, Carbon Dioxide 23.0, Anion Gap 8, BUN 15, Creatinine 1.12, Estim Creat Clear Calc 79.51, Est GFR (MDRD) Af Amer 85, Est GFR (MDRD) Non-Af 70, BUN/Creatinine Ratio 13.4, Glucose 83, Calcium 8.3 L, Total Bilirubin 0.50, Direct Bilirubin 0.16, AST 22, ALT 32, Alkaline Phosphatase 158 H, Troponin I < 0.015, Total Protein 7.5, Albumin 3.3, Globulin 4.2 12/02/19 11:05: Lactic Acid 3.1 H* 12/02/19 11:05: B-Natriuretic Peptide 70.4 12/02/19 11:05: PT 30.1 H, INR 2.9 12/02/19 11:05: Lipase 59 L 12/02/19 15:30: Lactic Acid 2.7 H* Current Medications Acetaminophen (Tylenol) 650 mg PO Q6H PRN PRN PRN Reason: Pain Score 1-10/Temp > 100.7 F Benztropine Mesylate (Cogentin) 0.5 mg PO TID [facility] Bupropion HCl (Wellbutrin Xl) 150 mg PO QAM [facility] Buspirone HCl (Buspar) 15 mg PO TID [facility] Clopidogrel Bisulfate (Plavix) 75 mg PO DAILY [facility] Donepezil HCl (Aricept) 10 mg PO QHS [facility] Fluoxetine HCl (Prozac) 40 mg PO DAILY [facility] Guaifenesin (Mucinex) 1,200 mg PO BID [facility] Heparin Sodium (Porcine) (Heparin Na) 5,000 unit SC Q8 [facility] Sodium Chloride () 1,000 mls @ 150 mls/hr IV .Q6H40M [facility] Last Admin: 12/02/19 15:47 Dose: 150 mls/hr Documented by: Sodium Chloride () 1,000 mls @ 75 mls/hr IV .[id number] [facility] Stop: 12/03/19 05:27 Loratadine (Claritin) 10 mg PO DAILY [facility] Magnesium Hydroxide (Milk Of Magnesia) 30 ml PO DAILY PRN PRN PRN Reason: Constipation Montelukast Sodium (Singulair) 10 mg PO QHS [facility] Nitroglycerin (Nitrostat) 0.4 mg SUBLINGUAL Q5M PRN PRN Reason: CARDIAC/CHEST PAIN Ondansetron HCl (Zofran) 4 mg IV Q8H PRN PRN PRN Reason: NAUSEA/VOMITING Pantoprazole Sodium (Protonix) 40 mg PO BID [facility] Potassium Chloride (K-Dur) 10 meq PO DAILYCM [facility] Psyllium Hydrophilic Mucilloid (Metamucil) 1 packet PO DAILY PRN PRN PRN Reason: Constipation Risperidone (Risperdal) 4 mg PO BID [facility] Fluticasone/Salmeterol (Advair 500/50 Mcg Diskus) 1 puff INHALATION BID [facility] Tamsulosin HCl (Flomax) 0.4 mg PO QHS [facility] Warfarin Sodium (Coumadin (Pbkc)) 6 mg PO TUWETH [facility] Warfarin Sodium (Coumadin (Pbkc)) 7.5 mg PO SUMOFRSA [facility]; Protocol Clinical Impression(s) from Imaging Studies Chest X-Ray 12/02/19 12:07 IMPRESSION: Stable mild increased markings at the left lung base suggestive of scarring. Electronically Signed: Floyd Lobato, at 12:41 EDT , Service support , Brain CT 12/02/19 12:55 IMPRESSION: Chronic involutional changes of the brain. Electronically Signed: Floyd Lobato, at 13:34 EDT , Service support , Chest CT 12/02/19 13:05 IMPRESSION: Progressive increased markings at the lung bases suggestive of scarring. Electronically Signed: Floyd Lobato, at 13:47 EDT , Service support , Assessment/Plan Active and Suspected Problems (Last Reviewed 10/23/19 @ 10:49 by Lilliam Denney, ARMEN) Asthma exacerbation (Acute) Respiratory failure (Acute) Fever (Acute) Severe sepsis (Acute) RECOMMENDATIONS: 1. Initiate antibiotics for community-acquired pneumonia 2. BiPAP breaks as tolerated 3. Agree with bronchodilators and steroid therapy 4. Okay to stop checking lactates 5. Repeat chest x-ray in a.m. IMPRESSIONS: 1. Acute hypoxic respiratory failure My personal review of the CT scan the chest shows a right lower lobe infiltrate. This was not obvious on chest x-ray. There is significant motion artifact. Will repeat chest x-ray tomorrow. Would treat with antibiotics in the interim, along with steroid therapy. Patient's predominant pathology from a lung perspective is asthma. COVID 19 testing has been sent by the hospitalist. Doubt PE as patient is currently therapeutic on warfarin therapy. 2. Metabolic encephalopathy Clinical suspicion for an element of hypoxia leading to increased c onfusion. Patient does have an element of dementia at baseline, but is able to recognize me in the office, along with his location. We will continue to monitor closely. Delirium protocol is in place. Recent MRI showed no acute cerebral insult, and CT of the head shows no acute bleed. 3. Hypotension Patient with a baseline of hypertension, so baseline medications will be held. Patient has been responsive to fluid thus far. Will need to watch closely as patient also has a history of chronic combined CHF. Patient does not appear to be in acute CHF at this time. Patient's INR is therapeutic, so DVT prophylaxis is likely not indicated. 4. Dementia/CAD status post CABG/history of CVA/aortic valve replacement/anxiety/depression/poor history Complicates care, management, recovery and prognosis. Likely okay to continue baseline psychiatric medications. Would watch INR on a daily basis for Coumadin dosing. TIME: 35 minutes critical care time spent addressing patient's acute hypoxic respiratory failure, encephalopathy, review of all data and collaboration with care team. (4 PM to 5:12 PM) [id number]: [id number] Critical care first hour
[2019-12-02] MEDS: 0.9% Saline Lock 10 ML Syringe IV (21:39)
[2019-12-03] VITALS (33 sets, daily range): BP systolic 97–155; BP diastolic 54–135; PULSE 73–110; RESP 12–22; TEMP 36.4–36.6; O2SAT 94–100
[2019-12-03 03:15] LABS: Glucose, Dipstick Normal (Normal); Ketone-Dipstick Negative (Negative); Leukocyte Esterase-Dipstick Negative /ul (Negative); Nitrite-Dipstick Negative (Negative); Occult Blood-Urine 10 /ul (Negative); Protein-Dipstick 15 mg/dl (Negative); Specific Gravity, Urine 1.025 (1.002-1.030); Urine Bilirubin Dipstick Negative (Negative); Urine Urobilinogen Normal (Normal)
[2019-12-03 03:16] LABS: Color, Urine Yellow (Yellow); Urine Clarity Clear (Clear)
[2019-12-03] MEDS: 0.9% Normal Saline 1,000 ML 75 ML IV (04:25)
[2019-12-03] MEDS: 0.9% Saline Lock 10 ML Syringe IV ×4 (04:25→22:12)
[2019-12-03 04:42] LABS: Absolute Lymphocyte Count 0.74 X10^3/uL (0.83-4.51); Absolute Neutrophil Count 12.8 X10^3/uL (2.0-7.7); Basophil# 0.02 X10^3/uL; Basophil% 0.1 % (0-1); Hematocrit 38.2 % (40-54); Hemoglobin 12.7 g/dL (13.0-16.5); Lymphocyte # 0.74 X10^3/ul (4.0); Lymphocyte % 5.2 % (19-41); Mean Corp Hgb Conc 33.2 g/dL (32-36); Mean Corpuscular Hgb 32.6 pg (27.0-32.0); Mean Corpuscular Volume 97.9 fL (80-94); Monocyte% 4.2 % (0-10); NRBC Flagged by Analyzer 0 % (0-5); Neutrophil % 90.1 % (47-70); Platelet Count 183 K/mm3 (150-450); RBC Distribution Width CV 14.9 % (11.6-14.6); RBC Distribution Width SD 53.6 fl (35.1-43.9); White Blood Count 14.2 K/mm3 (4.4-11.0)
[2019-12-03 04:59] LABS: ALB/GLOB Ratio 0.7 RATIO (0.9-2.4); AST(SGOT) 21 U/L (15-37); Alanine Aminotransfer ALT/SGPT 25 U/L (16-61); Albumin, Serum 2.6 g/dL (3.2-5.0); Alkaline Phosphatase 84 U/L (45-117); Anion Gap 7 (5-15); BUN 14 mg/dL (7-18); BUN/Creat Ratio 18.1 RATIO (10-20); Calcium,Total 7.7 mg/dL (8.5-10.1); Chloride 109 mmol/L (98-107); Creatinine, Serum 0.77 mg/dL (0.70-1.30); EST Glomerular Filtration Rate 108 mL/min (>60); Est Glom Filt Rate - Afr Amer 131 mL/min (>60); Estimated Creatinine Clearance 118.89 ml/min; Globulin 3.7 g/dL (2.2-4.2); Glucose 140 mg/dL (74-106); Potassium 3.7 mmol/L (3.5-5.1); Protein, Total 6.3 g/dL (6.4-8.2); Sodium Level 141 mmol/L (136-145)
[2019-12-03] MEDS: Albuterol 2.5 MG/3 ML VIAL.NEB. INHALATION ×3 (08:16→19:49)
--- NOTE | 2019-12-03 08:56 | PN_ITS ---
Patient Problems: Active and Suspected Problems (Last Updated 12/03/19 @ 09:[address] Brandy Larkin MD) Acute respiratory failure with hypoxia (Acute) Community acquired pneumonia (Acute) Asthma exacerbation (Acute) Subjective: Chief complaint: Follow-up after admission for acute hypoxic respiratory failure, asthma exacerbation, severe sepsis, probable community-acquired pneumonia and suspected COVID 19. Patient seen and examined. No acute events overnight. Today, he is feeling better, shortness of breath minimally improved, denied cough or sputum production. Remains on BiPAP. Heart rate and blood pressure stable, has been having spikes of fever overnight, on BiPAP. He is DNR CCA, no intubation. - Physical Exam Vitals/I&O's: Vital Signs Temp Pulse Resp BP Pulse Ox 97.7 F L 97 18 97/54 L 96 12/03/19 04:00 12/03/19 08:16 12/03/19 08:16 12/03/19 07:00 12/03/19 08:17 Oxygen Flow Rate (L/min) 6 Oxygen Delivery Method Nasal Cannula Weight: 286 lb 9.615 oz Body Mass Index (BMI) 35.8 Intake and Output for Last 24 Hours 12/01/19 12/02/19 12/03/19 23:59 23:59 23:59 Intake Total 3305.0 / 3305.0 1000 / 1000 Output Total 350 / 350 1450 / 1450 Balance 2955.0 / 2955.0 -450 / -450 General: Alert, Cooperative, Confused, - - Mildly short of breath. HEENT: Atraumatic, PERRLA, EOMI, Normocephalic Oral: Moist Mucosa, No Gingival or Mucosal Lesions/ Ulcerations Neck: Supple, No JVD, Negative Carotid Bruits, Trachea Midline, Thyroid Normal Size and Texture Lungs: No wheeze, Diminished, Rhonchi, Short of Breath, - - Decreased with sounds bilateral more on the right base, scattered rhonchi. Cardiovascular: Regular rate, Regular Rhythm, Normal S1, Normal S2, PMI Normal Abdomen: Bowel Sounds Present, Soft, Non Tender, Non-Distended, No Hepato- splenomegaly Extremities: No clubbing, No cyanosis, No edema Skin: No rashes, No breakdown Lymphatic: No Cervical, Supraclavicular, or Inguinal Adenopathy Neurological: Cranial nerves II-XII grossly intact, Neuro grossly intact Psych/Mental Status: Normal Affect, Appropriate Microbiology Past 72 Hours 12/02/19 11:16 Mucosa - Nasopharyngeal Respiratory Panel (PCR) - Final Laboratory Results 12/02/19 11:05: WBC 12.2 H, RBC 4.48 L, Hgb 14.8, Hct 43.5, MCV 97.1 H, MCH 33.0 H, MCHC 34.0, RDW Std Deviation 52.4 H, RDW Coeff of Adalberto 15.0 H, Plt Count 214, MPV 8.7, Immature Gran % (Auto) 0.500, Neut % (Auto) 83.7 H, Lymph % (Auto) 7.7 L, Gibson % (Auto) 7.1, Eos % (Auto) 0.6, Baso % (Auto) 0.4, Absolute Neuts (auto) 10.2 H, Absolute Lymphs (auto) 0.94, Nucleated RBC % 0 12/02/19 11:05: Sodium 141, Potassium 3.8, Chloride 110 H, Carbon Dioxide 23.0, Anion Gap 8, BUN 15, Creatinine 1.12, Estim Creat Clear Calc 79.51, Est GFR (MDRD) Af Amer 85, Est GFR (MDRD) Non-Af 70, BUN/Creatinine Ratio 13.4, Glucose 83, Calcium 8.3 L, Total Bilirubin 0.50, Direct Bilirubin 0.16, AST 22, ALT 32, Alkaline Phosphatase 158 H, Troponin I < 0.015, Total Protein 7.5, Albumin 3.3, Globulin 4.2 12/02/19 11:05: Lactic Acid 3.1 H* 12/02/19 11:05: B-Natriuretic Peptide 70.4 12/02/19 11:05: PT 30.1 H, INR 2.9 12/02/19 11:05: Lipase 59 L 12/02/19 15:30: Lactic Acid 2.7 H* 12/02/19 16:30: COVID-19 (RYLIE) Pending 12/03/19 03:10: Urine Color Yellow, Urine Clarity Clear, Urine pH 6.0, Ur Specific [place] 1.025, Urine Protein 15 H, Urine Glucose (UA) Normal, Urine Ketones Negative, Urine Occult Blood 10 H, Urine Nitrite Negative, Urine Bilirubin Negative, Urine Urobilinogen Normal, Ur Leukocyte Esterase Negative 12/03/19 04:25: WBC 14.2 H, RBC 3.90 L, Hgb 12.7 L, Hct 38.2 L, MCV 97.9 H, MCH 32.6 H, MCHC 33.2, RDW Std Deviation 53.6 H, RDW Coeff of Adalberto 14.9 H, Plt Count 183, MPV 9.0, Immature Gran % (Auto) 0.400, Neut % (Auto) 90.1 H, Lymph % (Auto) 5.2 L, Gibson % (Auto) 4.2, Eos % (Auto) 0.0, Baso % (Auto) 0.1, Absolute Neuts (auto) 12.8 H, Absolute Lymphs (auto) 0.74 L, Nucleated RBC % 0 12/03/19 04:25: Sodium 141, Potassium 3.7, Chloride 109 H, Carbon Dioxide 25.0, Anion Gap 7, BUN 14, Creatinine 0.77, Estim Creat Clear Calc 118.89, Est GFR (MDRD) Af Amer 131, Est GFR (MDRD) Non-Af 108, BUN/Creatinine Ratio 18.1, Glucose 140 H, Calcium 7.7 L, Total Bilirubin 0.50, AST 21, ALT 25, Alkaline Phosphatase 84, Total Protein 6.3 L, Albumin 2.6 L, Globulin 3.7, Albumin/Globulin Ratio 0.7 L Clinical Impression(s) from Imaging Studies Chest X-Ray 12/02/19 12:07 IMPRESSION: Stable mild increased markings at the left lung base suggestive of scarring. Electronically Signed: Floyd Lobato, at 12:41 EDT , Service support , Brain CT 12/02/19 12:55 IMPRESSION: Chronic involutional changes of the brain. Electronically Signed: Floyd Lobato, at 13:34 EDT , Service support , Chest CT 12/02/19 13:05 IMPRESSION: Progressive increased markings at the lung bases suggestive of scarring. Electronically Signed: Floyd Lobato, at 13:47 EDT , Service support , Current Medications Acetaminophen (Tylenol) 650 mg PO Q6H PRN PRN PRN Reason: Pain Score 1-10/Temp > 100.7 F Albuterol Sulfate (Ventolin Aerosols) 2.5 mg INHALATION Q6HWA.RT [facility] Last Admin: 12/03/19 08:16 Dose: 2.5 mg Documented by: Benztropine Mesylate (Cogentin) 0.5 mg PO TID [facility] Last Admin: 12/03/19 05:32 Dose: Not Given Documented by: Bupropion HCl (Wellbutrin Xl) 150 mg PO QAM [facility] Buspirone HCl (Buspar) 15 mg PO TID [facility] Last Admin: 12/03/19 05:32 Dose: Not Given Documented by: Clopidogrel Bisulfate (Plavix) 75 mg PO DAILY [facility] Donepezil HCl (Aricept) 10 mg PO QHS [facility] Last Admin: 12/02/19 23:30 Dose: Not Given Documented by: Fluoxetine HCl (Prozac) 40 mg PO DAILY [facility] Guaifenesin (Mucinex) 1,200 mg PO BID [facility] Last Admin: 12/02/19 23:31 Dose: Not Given Documented by: Azithromycin 500 mg/ Dextrose 255 mls @ 250 mls/hr IV Q24 [facility] Stop: 12/04/19 11:02 Ceftriaxone Sodium (Rocephin) 1 gm in 50 mls @ 100 mls/hr IV Q24 [facility] Sodium Chloride () 250 mls @ 15 mls/hr IV .[id number] PRN PRN Reason: Saline Flush Sodium Chloride () 250 mls @ 15 mls/hr IV .[id number] PRN PRN Reason: Additional IVPB Infusion Loratadine (Claritin) 10 mg PO DAILY [facility] Magnesium Hydroxide (Milk Of Magnesia) 30 ml PO DAILY PRN PRN PRN Reason: Constipation Methylprednisolone (Solu-Medrol) 40 mg IV Q8 [facility] Last Admin: 12/03/19 05:31 Dose: 40 mg Documented by: Montelukast Sodium (Singulair) 10 mg PO QHS [facility] Last Admin: 12/02/19 23:31 Dose: Not Given Documented by: Nitroglycerin (Nitrostat) 0.4 mg SUBLINGUAL Q5M PRN PRN Reason: CARDIAC/CHEST PAIN Ondansetron HCl (Zofran) 4 mg IV Q8H PRN PRN PRN Reason: NAUSEA/VOMITING Pantoprazole Sodium (Protonix) 40 mg PO BID [facility] Last Admin: 12/02/19 23:31 Dose: Not Given Documented by: Potassium Chloride (K-Dur) [facility] Psyllium Hydrophilic Mucilloid (Metamucil) 1 packet PO DAILY PRN PRN PRN Reason: Constipation Risperidone (Risperdal) 4 mg PO BID [facility] Last Admin: 12/02/19 23:31 Dose: Not Given Documented by: Sodium Chloride () 10 - 40 ml IV UD PRN PRN Reason: SALINE FLUSH Last Admin: 12/03/19 05:31 Dose: 10 ml Documented by: Tamsulosin HCl (Flomax) 0.4 mg PO QHS [facility] Last Admin: 12/02/19 23:31 Dose: Not Given Documented by: Warfarin Sodium (Coumadin (Pbkc)) 6 mg PO TuWeTh@1700 [facility]ES[facility] Last Admin: 12/02/19 23:30 Dose: Not Given Documented by: Warfarin Sodium (Coumadin (Pbkc)) 7.5 mg PO SuMoFrSa@1700 TRES[facility]; Protocol Medical Necessity - Tobacco Use Smoking Status: Former smoker Tobacco Use: Non-smoker Assessment/Plan All Active Problems (Last Updated 12/03/19 @ 09:[address] Brandy Larkin MD) Acute respiratory failure with hypoxia (Acute) Community acquired pneumonia (Acute) Asthma exacerbation (Acute) This is a 63 years old male patient presented to the emergency room because of shortness of breath and he was found to have severe sepsis secondary to probable community-acquired pneumonia which is complicated by acute hypoxic respiratory failure and acute metabolic encephalopathy. #1 acute hypoxic respiratory failure: Secondary to severe sepsis and pneumonia which could be viral. Possible asthma exacerbation cannot be ruled out. Patient is on BiPAP. He is DNR CCA, no intubation. Last night, had spikes of fever, heart rate stable, blood pressure is borderline. Pulse ox is 96% on BiPAP. Respiratory panel for viruses was negative. Blood and urine cultures are pending. Patient is on IV antibiotics and IV steroids. Critical care on the case. Plan to continue same treatment. #2 severe sepsis/probable community-acquired pneumonia/suspected COVID-19: Chest x-ray and CT scan chest reviewed. Probable right lung infiltrate. He is on IV Rocephin and Zithromax. Has been having spikes of fever, WBC is trending up. Respiratory panel for pressors were negative. Cultures are pending. Testing for COVID-19 sent, pending. Plan to continue same treatment. #3 acute metabolic encephalopathy: He does have a history of dementia which could be exaggerated by sepsis and infection. Patient is confused and disoriented. CT scan brain showed no acute findings. Plan to treat underlying cause. #4 CAD status post CABG and stents: Stable, no complaints. He is on Plavix and Coumadin. Metoprolol held because of borderline blood pressure. #5 status post aortic valve replacement with mechanical valve: On Coumadin, INR is 2.9. #6 hypertension: Blood pressure is borderline at this time. Lasix and metoprolol held. Plan to monitor. #7 bipolar disorder/depression: Stable, continue Wellbutrin, BuSpar, Prozac and risperidone. #8 history of peptic ulcer disease: He is on Protonix twice daily. #9 COPD: On BiPAP, IV antibiotics and bronchodilators. Plan as above. #10 dementia: Continue Cogentin and Aricept. #11 DVT prophylaxis: On Coumadin, INR is 2.9. This note was generated with [employer] software. It may contain incorrect words, spelling, and punctuation that were not noted in checking the note before signing. Inpatient E&M: [id number] [facility] L3
[2019-12-03] MEDS: FLUoxetine 20 MG Capsule 40 MG PO (09:08)
[2019-12-03] MEDS: Clopidogrel Bisulfate 75 MG Tablet PO (09:08)
[2019-12-03] MEDS: Loratadine 10 MG Tablet PO (09:09)
[2019-12-03] MEDS: Pantoprazole Sodium 40 MG Tablet PO ×2 (09:09→22:10)
[2019-12-03] MEDS: RisperiDONE 2 MG Tablet 4 MG PO ×2 (09:09→22:10)
[2019-12-03] MEDS: guaiFENesin 1,200 MG Tablet 1200 MG PO ×2 (09:09→22:11)
--- NOTE | 2019-12-03 10:06 | PN_ITS ---
Subjective: Patient did okay overnight. Patient did not have any BiPAP breaks, but stabilized on 30% FiO2. Patient did have a fever overnight, but this continues to improve. No hemodynamic instability was reported. General: Alert, No apparent distress, Confused - Still unable to recognize me, Disoriented - Was aware of his name and place, but unaware of clinical condition HEENT: Atraumatic, PERRLA, EOMI, Normocephalic, - - No scleral icterus or injection noted Oral: Moist Mucosa, No Gingival or Mucosal Lesions/ Ulcerations Neck: Supple, No JVD, No Nodes, Trachea Midline Lungs: No rales, Diminished, Rhonchi - Right base, Wheezes Cardiovascular: Regular rate, Regular Rhythm, Normal S1, Normal S2, No murmurs, No rub noted, No Gallop Abdomen: Bowel Sounds Present, Soft, Non Tender, Non-Distended, Obese Extremities: No clubbing, No cyanosis, No edema Skin: - - Unchanged from previous Musculoskeletal: No Tenderness to Palpation of Joints or Extremities Lymphatic: No Cervical, Supraclavicular, or Inguinal Adenopathy Neurological: Cranial nerves II-XII grossly intact, Neuro grossly intact, Motor Exam 5/5 strength throughout Psych/Mental Status: Normal Affect, Appropriate Vital Signs Temp Pulse Resp BP Pulse Ox 36.5 C L 97 18 97/54 L 96 12/03/19 04:00 12/03/19 08:16 12/03/19 08:16 12/03/19 07:00 12/03/19 08:17 Oxygen Flow Rate (L/min) 6 Oxygen Delivery Method Nasal Cannula Weight: 130 kg Body Mass Index (BMI) 35.8 Intake and Output for Last 24 Hours 12/01/19 12/02/19 12/03/19 23:59 23:59 23:59 Intake Total 3305.0 / 3305.0 1000 / 1000 Output Total 350 / 350 1450 / 1450 Balance 2955.0 / 2955.0 -450 / -450 Labs (Last 48 Hours) 12/02/19 12/02/19 12/02/19 11:05 11:05 11:05 WBC 12.2 H RBC 4.48 L Hgb 14.8 Hct 43.5 MCV 97.1 H MCH 33.0 H MCHC 34.0 RDW Std Deviation 52.4 H RDW Coeff of Adalberto 15.0 H Plt Count 214 MPV 8.7 Immature Gran % (Auto) 0.500 Neut % (Auto) 83.7 H Lymph % (Auto) 7.7 L Stanton % (Auto) 7.1 Eos % (Auto) 0.6 Baso % (Auto) 0.4 Absolute Neuts (auto) 10.2 H Absolute Lymphs (auto) 0.94 Nucleated RBC % 0 PT INR Sodium 141 Potassium 3.8 Chloride 110 H Carbon Dioxide 23.0 Anion Gap 8 BUN 15 Creatinine 1.12 Estim Creat Clear Calc 79.51 Est GFR (MDRD) Af Amer 85 Est GFR (MDRD) Non-Af 70 BUN/Creatinine Ratio 13.4 Glucose 83 Lactic Acid 3.1 H* Calcium 8.3 L Total Bilirubin 0.50 Direct Bilirubin 0.16 AST 22 ALT 32 Alkaline Phosphatase 158 H Troponin I < 0.015 B-Natriuretic Peptide Total Protein 7.5 Albumin 3.3 Globulin 4.2 Albumin/Globulin Ratio Lipase Urine Color Urine Clarity Urine pH Ur Specific [place] Urine Protein Urine Glucose (UA) Urine Ketones Urine Occult Blood Urine Nitrite Urine Bilirubin Urine Urobilinogen Ur Leukocyte Esterase COVID-19 (RYLIE) 12/02/19 12/02/19 12/02/19 11:05 11:05 11:05 WBC RBC Hgb Hct MCV MCH MCHC RDW Std Deviation RDW Coeff of Adalberto Plt Count MPV Immature Gran % (Auto) Neut % (Auto) Lymph % (Auto) Stanton % (Auto) Eos % (Auto) Baso % (Auto) Absolute Neuts (auto) Absolute Lymphs (auto) Nucleated RBC % PT 30.1 H INR 2.9 Sodium Potassium Chloride Carbon Dioxide Anion Gap BUN Creatinine Estim Creat Clear Calc Est GFR (MDRD) Af Amer Est GFR (MDRD) Non-Af BUN/Creatinine Ratio Glucose Lactic Acid Calcium Total Bilirubin Direct Bilirubin AST ALT Alkaline Phosphatase Troponin I B-Natriuretic Peptide 70.4 Total Protein Albumin Globulin Albumin/Globulin Ratio Lipase 59 L Urine Color Urine Clarity Urine pH Ur Specific [place] Urine Protein Urine Glucose (UA) Urine Ketones Urine Occult Blood Urine Nitrite Urine Bilirubin Urine Urobilinogen Ur Leukocyte Esterase COVID-19 (RYLIE) 12/02/19 12/02/19 12/03/19 15:30 16:30 03:10 WBC RBC Hgb Hct MCV MCH MCHC RDW Std Deviation RDW Coeff of Adalberto Plt Count MPV Immature Gran % (Auto) Neut % (Auto) Lymph % (Auto) Stanton % (Auto) Eos % (Auto) Baso % (Auto) Absolute Neuts (auto) Absolute Lymphs (auto) Nucleated RBC % PT INR Sodium Potassium Chloride Carbon Dioxide Anion Gap BUN Creatinine Estim Creat Clear Calc Est GFR (MDRD) Af Amer Est GFR (MDRD) Non-Af BUN/Creatinine Ratio Glucose Lactic Acid 2.7 H* Calcium Total Bilirubin Direct Bilirubin AST ALT Alkaline Phosphatase Troponin I B-Natriuretic Peptide Total Protein Albumin Globulin Albumin/Globulin Ratio Lipase Urine Color Yellow Urine Clarity Clear Urine pH 6.0 Ur Specific [place] 1.025 Urine Protein 15 H Urine Glucose (UA) Normal Urine Ketones Negative Urine Occult Blood 10 H Urine Nitrite Negative Urine Bilirubin Negative Urine Urobilinogen Normal Ur Leukocyte Esterase Negative COVID-19 (RYLIE) Pending 12/03/19 12/03/19 04:25 04:25 WBC 14.2 H RBC 3.90 L Hgb 12.7 L Hct 38.2 L MCV 97.9 H MCH 32.6 H MCHC 33.2 RDW Std Deviation 53.6 H RDW Coeff of Adalberto 14.9 H Plt Count 183 MPV 9.0 Immature Gran % (Auto) 0.400 Neut % (Auto) 90.1 H Lymph % (Auto) 5.2 L Stanton % (Auto) 4.2 Eos % (Auto) 0.0 Baso % (Auto) 0.1 Absolute Neuts (auto) 12.8 H Absolute Lymphs (auto) 0.74 L Nucleated RBC % 0 PT INR Sodium 141 Potassium 3.7 Chloride 109 H Carbon Dioxide 25.0 Anion Gap 7 BUN 14 Creatinine 0.77 Estim Creat Clear Calc 118.89 Est GFR (MDRD) Af Amer 131 Est GFR (MDRD) Non-Af 108 BUN/Creatinine Ratio 18.1 Glucose 140 H Lactic Acid Calcium 7.7 L Total Bilirubin 0.50 Direct Bilirubin AST 21 ALT 25 Alkaline Phosphatase 84 Troponin I B-Natriuretic Peptide Total Protein 6.3 L Albumin 2.6 L Globulin 3.7 Albumin/Globulin Ratio 0.7 L Lipase Urine Color Urine Clarity Urine pH Ur Specific [place] Urine Protein Urine Glucose (UA) Urine Ketones Urine Occult Blood Urine Nitrite Urine Bilirubin Urine Urobilinogen Ur Leukocyte Esterase COVID-19 (RYLIE) Microbiology 12/02/19 11:16 Mucosa - Nasopharyngeal Respiratory Panel (PCR) - Final Clinical Impression(s) from Imaging Studies Chest X-Ray 12/02/19 12:07 IMPRESSION: Stable mild increased markings at the left lung base suggestive of scarring. Electronically Signed: Floyd Lobato, at 12:41 EDT , Service support , Brain CT 12/02/19 12:55 IMPRESSION: Chronic involutional changes of the brain. Electronically Signed: Floyd Florlisa, at 13:34 EDT , Service support , Chest CT 12/02/19 13:05 IMPRESSION: Progressive increased markings at the lung bases suggestive of scarring. Electronically Signed: Floyd Florlisa, at 13:47 EDT , Service support , Medical Necessity - Tobacco Use Smoking Status: Former smoker Tobacco Use: Non-smoker Assessment/Plan All Active Problems (Last Updated 12/03/19 @ 09:[address] Brandy Larkin MD) Acute respiratory failure with hypoxia (Acute) Community acquired pneumonia (Acute) Asthma exacerbation (Acute) RECOMMENDATIONS: 1. Continue antibiotics for community-acquired pneumonia 2. BiPAP breaks as tolerated 3. Continue with bronchodilators and steroid therapy 4. Await COVID testing. 5. Possible transfer from the intensive care unit tomorrow IMPRESSIONS: 1. Acute hypoxic respiratory failure My personal review of the CT scan the chest shows a right lower lobe infiltrate. This was not obvious on chest x-ray. There is significant motion artifact. Patient does appear to be responding to therapy. Would treat with antibiotics in the interim, along with steroid therapy. Patient's predominant pathology from a lung perspective is asthma. COVID 19 testing has been sent by the hospitalist. Doubt PE as patient is currently therapeutic on warfarin therapy. 2. Metabolic encephalopathy Slowly improving. Clinical suspicion for an element of hypoxia leading to increased confusion. Patient does have an element of dementia at baseline, but is able to recognize me from the office. We will continue to monitor closely. Delirium protocol is in place. Recent MRI showed no acute cerebral insult, and CT of the head shows no acute bleed. 3. Hypotension Resolved. Patient with a baseline of hypertension, so baseline medications will be held. No additional fluid boluses have been required. Will need to watch closely as patient also has a history of chronic combined CHF. Patient does not appear to be in acute CHF at this time. Patient's INR is therapeutic, so DVT prophylaxis is likely not indicated. Recheck INR tomorrow 4. Dementia/CAD status post CABG/history of CVA/aortic valve replacement/anxiety/depression/poor history Complicates care, management, recovery and prognosis. Likely okay to continue baseline psychiatric medications. Would watch INR on a daily basis for Coumadin dosing. Inpatient E&M: [id number] [facility] L3
[2019-12-03] MEDS: Ceftriaxone 1 GM/50 ML BAG IV (10:29)
--- NOTE | 2019-12-03 12:05 | CASEMGMT ---
RN JAX ASSESSMENT Respiratory panel negative. COVID 19 suspected .Test sent. Pt in isolation precautions. Pt w/confusion. Call placed to pt's at this time. Introduced self and role of JACQUE CAMARA. agreeable to talking w/JACQUE CAMARA and the following information was obtained by her. PCP: Dr Bartolo Mitchell Specialists: Dr Norton--pulmonology, Dr Uriostegui-cardiology, Dr Riley-oncology Preferred Pharmacy: [facility] Retail Insurance: [facility] A and B. Prescription Benefit: Yes. [employer]. Living Will/HPOA: Pt does not have LW or Healthcare POA LNOK: , Iesla Matos. Has 4 adult children. Living Arrangements: Lives with and 2 daughters, Keiko and Charline, in 2-story [facility] w/4 steps to enter. Has approx 8 steps up to 2nd floor where bedroom is. states has rails on stairs and pt able to navigate well. Was independent with IADL's. states d/t memory issues, he needs reminded to do self-care. and daughters manage home mgmt tasks. Transportation: drives. She denies transportation concerns. DME: Has rails on stairs. Has CPAP but does not use it. Nebulizer. Ambulates independently without DME. Does not have Home O2. Reviewed list of local DME companies if pt would need home O2 at discharge. She denies having preference. States no need for further DME at this time. HHC/SNF: [facility] and [facility]HC in the past. wishes for pt to return home and states has no concerns with him going home at time of discharge. CM to follow for home oxygen needs and any further discharge planning/needs. voices no concerns/needs at this time. Advised her to ask for CM if any further questions/concerns/needs arise. Voices understanding. PLAN: D/C Home Follow for O2 needs at discharge. Melissa COUGHLIN RN, CM
[2019-12-03] MEDS: Benztropine 2 MG Tablet 0.5 MG PO ×2 (14:49→22:09)
[2019-12-03] MEDS: busPIRone 15 MG TABLET PO ×2 (14:49→22:11)
[2019-12-03] MEDS: buPROPion (XL) 150 MG TABLET.XL PO (14:49)
[2019-12-03] MEDS: Ondansetron 4 MG/2 ML Vial IV (19:57)
[2019-12-03] MEDS: Tamsulosin HCl 0.4 MG Capsule PO (22:09)
[2019-12-03] MEDS: Donepezil HCl 10 MG Tablet PO (22:10)
[2019-12-03] MEDS: Montelukast 10 MG Tablet PO (22:10)
[2019-12-04] VITALS (15 sets, daily range): BP systolic 106–140; BP diastolic 33–75; PULSE 57–96; RESP 14–20; TEMP 36.1–36.4; O2SAT 95–98
[2019-12-04] MEDS: 0.9% Saline Lock 10 ML Syringe IV ×2 (05:30→21:23)
[2019-12-04] MEDS: busPIRone 15 MG TABLET PO ×3 (06:00→21:18)
[2019-12-04] MEDS: Benztropine 2 MG Tablet 0.5 MG PO ×3 (06:00→21:17)
[2019-12-04] MEDS: Albuterol 2.5 MG/3 ML VIAL.NEB. INHALATION ×3 (07:10→18:45)
[2019-12-04 08:47] LABS: International Normalized Ratio 2.6; Prothrombin Time (Protime)PT. 27.5 SECONDS (11.7-14.9)
[2019-12-04 08:55] LABS: Anion Gap 5 (5-15); BUN 11 mg/dL (7-18); BUN/Creat Ratio 14.7 RATIO (10-20); Calcium,Total 8.2 mg/dL (8.5-10.1); Chloride 109 mmol/L (98-107); Creatinine, Serum 0.75 mg/dL (0.70-1.30); EST Glomerular Filtration Rate 112 mL/min (>60); Est Glom Filt Rate - Afr Amer 136 mL/min (>60); Estimated Creatinine Clearance 122.06 ml/min; Glucose 123 mg/dL (74-106); Potassium 4.3 mmol/L (3.5-5.1); Sodium Level 142 mmol/L (136-145)
--- NOTE | 2019-12-04 09:49 | PN_ITS ---
Patient Problems: Active and Suspected Problems (Last Updated 12/03/19 @ 09:[address] Brandy Larkin MD) Acute respiratory failure with hypoxia (Acute) Community acquired pneumonia (Acute) Asthma exacerbation (Acute) Subjective: Chief complaint: Follow-up after admission for acute hypoxic respiratory failure, asthma exacerbation, severe sepsis, probable community-acquired pneumonia and suspected COVID 19. Patient seen and examined. No acute events overnight. Today, is feeling better, shortness of breath continue to improve every day. Still having mild cough, no sputum production. He remained on oxygen at 4 L since yesterday afternoon. Other vital signs are stable. - Physical Exam Vitals/I&O's: Vital Signs Temp Pulse Resp BP Pulse Ox 97.6 F L 59 L 16 123/72 H 96 12/04/19 00:00 12/04/19 08:32 12/04/19 01:00 12/04/19 01:00 12/04/19 01:00 Oxygen Flow Rate (L/min) 4 Oxygen Delivery Method Nasal Cannula Weight: 286 lb 9.615 oz Body Mass Index (BMI) 35.8 Intake and Output for Last 24 Hours 12/02/19 12/03/19 12/04/19 23:59 23:59 23:59 Intake Total 3305.0 / 3305.0 2955 / 3195 240 / 240 Output Total 350 / 350 3200 / 3650 450 / 450 Balance 2955.0 / 2955.0 -245 / -455 -210 / -210 General: Alert, Cooperative, No apparent distress HEENT: Atraumatic, PERRLA, EOMI, Normocephalic Oral: Moist Mucosa, No Gingival or Mucosal Lesions/ Ulcerations Neck: Supple, No JVD, Negative Carotid Bruits, Trachea Midline, Thyroid Normal Size and Texture Lungs: Normal air movement, No wheeze, No rales, Diminished, - - Decreased breath sounds bilateral. Cardiovascular: Regular rate, Regular Rhythm, Normal S1, Normal S2, PMI Normal Abdomen: Bowel Sounds Present, Soft, Non Tender, Non-Distended, No Hepato- splenomegaly Extremities: No clubbing, No cyanosis, No edema Skin: No rashes, No breakdown Lymphatic: No Cervical, Supraclavicular, or Inguinal Adenopathy Neurological: Cranial nerves II-XII grossly intact, Neuro grossly intact Psych/Mental Status: Normal Affect, Appropriate Microbiology Past 72 Hours 12/02/19 11:10 Blood Culture (Wb) - Anticubital Left Blood Culture - Preliminary No growth in 48 hours. 12/02/19 11:05 Blood Culture (Wb) - Right Hand Blood Culture - Preliminary No growth in 48 hours. 12/02/19 11:16 Mucosa - Nasopharyngeal Respiratory Panel (PCR) - Final Laboratory Results 12/02/19 16:30: COVID-19 (RYLIE) Pending 12/04/19 05:30: WBC Pending, RBC Pending, Hgb Pending, Hct Pending, MCV Pending, MCH Pending, MCHC Pending, RDW Std Deviation Pending, RDW Coeff of Adalberto Pending, Plt Count Pending, Neut % (Auto) Pending, Absolute Neuts (auto) Pending 12/04/19 05:30: PT 27.5 H, INR 2.6 12/04/19 05:30: Sodium Pending, Potassium Pending, Chloride Pending, Carbon Dioxide Pending, Anion Gap Pending, BUN Pending, Creatinine Pending, Est GFR (MDRD) Af Amer Pending, Est GFR (MDRD) Non-Af Pending, BUN/Creatinine Ratio Pending, Glucose Pending, Calcium Pending Current Medications Acetaminophen (Tylenol) 650 mg PO Q6H PRN PRN PRN Reason: Pain Score 1-10/Temp > 100.7 F Albuterol Sulfate (Ventolin Aerosols) 2.5 mg INHALATION Q6HWA.RT [facility] Last Admin: 12/03/19 19:49 Dose: 2.5 mg Documented by: Benztropine Mesylate (Cogentin) 0.5 mg PO TID [facility] Last Admin: 12/04/19 09:46 Dose: Not Given Documented by: Bupropion HCl (Wellbutrin Xl) 150 mg PO QAM [facility] Last Admin: 12/03/19 14:49 Dose: 150 mg Documented by: Buspirone HCl (Buspar) 15 mg PO TID [facility] Last Admin: 12/04/19 09:46 Dose: Not Given Documented by: Clopidogrel Bisulfate (Plavix) 75 mg PO DAILY [facility] Last Admin: 12/03/19 09:08 Dose: 75 mg Documented by: Donepezil HCl (Aricept) 10 mg PO QHS [facility] Last Admin: 12/03/19 22:10 Dose: 10 mg Documented by: Fluoxetine HCl (Prozac) 40 mg PO DAILY [facility] Last Admin: 12/03/19 09:08 Dose: 40 mg Documented by: Guaifenesin (Mucinex) 1,200 mg PO BID [facility] Last Admin: 12/03/19 22:11 Dose: 1,200 mg Documented by: Azithromycin 500 mg/ Dextrose 255 mls @ 250 mls/hr IV Q24 [facility] Stop: 12/04/19 11:02 Last Infusion: 12/03/19 10:00 Dose: Infused Documented by: Ceftriaxone Sodium (Rocephin) 1 gm in 50 mls @ 100 mls/hr IV Q24 [facility] Last Admin: 12/03/19 10:29 Dose: 100 mls/hr Documented by: Sodium Chloride () 250 mls @ 15 mls/hr IV .[id number] PRN PRN Reason: Saline Flush Sodium Chloride () 250 mls @ 15 mls/hr IV .[id number] PRN PRN Reason: Additional IVPB Infusion Loratadine (Claritin) 10 mg PO DAILY [facility] Last Admin: 12/03/19 09:09 Dose: 10 mg Documented by: Magnesium Hydroxide (Milk Of Magnesia) 30 ml PO DAILY PRN PRN PRN Reason: Constipation Methylprednisolone (Solu-Medrol) 40 mg IV Q8 [facility] Last Admin: 12/04/19 09:47 Dose: Not Given Documented by: Montelukast Sodium (Singulair) 10 mg PO QHS [facility] Last Admin: 12/03/19 22:10 Dose: 10 mg Documented by: Nitroglycerin (Nitrostat) 0.4 mg SUBLINGUAL Q5M PRN PRN Reason: CARDIAC/CHEST PAIN Ondansetron HCl (Zofran) 4 mg IV Q8H PRN PRN PRN Reason: NAUSEA/VOMITING Last Admin: 12/03/19 19:57 Dose: 4 mg Documented by: Pantoprazole Sodium (Protonix) 40 mg PO BID [facility] Last Admin: 12/03/19 22:10 Dose: 40 mg Documented by: Potassium [facility] Last Admin: 12/04/19 09:47 Dose: Not Given Documented by: Psyllium Hydrophilic Mucilloid (Metamucil) 1 packet PO DAILY PRN PRN PRN Reason: Constipation Risperidone (Risperdal) 4 mg PO BID [facility] Last Admin: 12/03/19 22:10 Dose: 4 mg Documented by: Sodium Chloride () 10 - 40 ml IV UD PRN PRN Reason: SALINE FLUSH Last Admin: 12/03/19 22:12 Dose: 10 ml Documented by: Sodium Chloride () 10 - 40 ml IV UD PRN PRN Reason: SALINE FLUSH Tamsulosin HCl (Flomax) 0.4 mg PO QHS [facility] Last Admin: 12/03/19 22:09 Dose: 0.4 mg Documented by: Warfarin Sodium (Coumadin (Pbkc)) 6 mg PO [id number] [facility] Last Admin: 12/03/19 16:07 Dose: 6 mg Documented by: Warfarin Sodium (Coumadin (Pbkc)) 7.5 mg PO SuMoFrSa@1700 [facility]; Protocol Medical Necessity - Tobacco Use Smoking Status: Former smoker Tobacco Use: Non-smoker Assessment/Plan All Active Problems (Last Updated 12/03/19 @ 09:[address] Brandy Larkin MD) Acute respiratory failure with hypoxia (Acute) Community acquired pneumonia (Acute) Asthma exacerbation (Acute) This is a 63 years old male patient presented to the emergency room because of shortness of breath and he was found to have severe sepsis secondary to probable community-acquired pneumonia which is complicated by acute hypoxic respiratory f ailure and acute metabolic encephalopathy. #1 acute hypoxic respiratory failure: Attributed to severe sepsis and pneumonia which could be viral. Possible asthma exacerbation cannot be ruled out. He is on IV Rocephin and Zithromax as well as IV Solu-Medrol. He has been on 4 L of oxygen since yesterday, down to 3 L this morning. He is feeling better, less short of breath. Respiratory panel for viruses was negative. Blood culture showed no growth in 48 hours. Urine culture showed no growth. Plan to transfer to [facility] or [facility] based on COVID-19 results. #2 severe sepsis/probable community-acquired pneumonia/suspected COVID-19: Remained on IV Rocephin and Zithromax. He has been afebrile overnight, blood pressure and heart rate are stable, oxygen requirement has been decreasing. Respiratory panel for pressors were negative. Cultures are negative as above. Testing for COVID-19 sent, pending. Plan as above. #3 acute metabolic encephalopathy: He does have a history of dementia which could be exaggerated by sepsis and infection. CT scan brain showed no acute findings. Plan to treat underlying cause. #4 CAD status post CABG and stents: Stable, no complaints. He is on Plavix and Coumadin. Keep holding metoprolol for now.. #5 status post aortic valve replacement with mechanical valve: On Coumadin, INR is 2.6. #6 hypertension: Blood pressure stabilized. Lasix and metoprolol held. Plan to monitor. #7 bipolar disorder/depression: Stable, continue Wellbutrin, BuSpar, Prozac and risperidone. #8 history of peptic ulcer disease: He is on Protonix twice daily. #9 COPD: On BiPAP, IV antibiotics and bronchodilators. Plan as above. #10 dementia: Continue Cogentin and Aricept. #11 DVT prophylaxis: On Coumadin, INR is 2.6. This note was generated with [employer] dictation software. It may contain incorrect words, spelling, and punctuation that were not noted in checking the note before signing. Inpatient E&M: 87137 Subs Hosp L2
[2019-12-04] MEDS: Loratadine 10 MG Tablet PO (10:39)
[2019-12-04] MEDS: Clopidogrel Bisulfate 75 MG Tablet PO (10:39)
[2019-12-04] MEDS: FLUoxetine 20 MG Capsule 40 MG PO (10:39)
[2019-12-04] MEDS: RisperiDONE 2 MG Tablet 4 MG PO ×2 (10:39→21:18)
[2019-12-04] MEDS: buPROPion (XL) 150 MG TABLET.XL PO (10:39)
[2019-12-04] MEDS: guaiFENesin 1,200 MG Tablet 1200 MG PO ×2 (10:39→21:16)
[2019-12-04] MEDS: Pantoprazole Sodium 40 MG Tablet PO ×2 (10:39→21:17)
[2019-12-04] MEDS: Ceftriaxone 1 GM/50 ML BAG IV (10:39)
[2019-12-04 11:49] LABS: Absolute Lymphocyte Count 0.84 X10^3/uL (0.83-4.51); Absolute Neutrophil Count 13.7 X10^3/uL (2.0-7.7); Basophil# 0.01 X10^3/uL; Basophil% 0.1 % (0-1); Hematocrit 38.5 % (40-54); Hemoglobin 12.6 g/dL (13.0-16.5); Lymphocyte # 0.84 X10^3/ul (4.0); Lymphocyte % 5.4 % (19-41); Mean Corp Hgb Conc 32.7 g/dL (32-36); Mean Corpuscular Hgb 32.5 pg (27.0-32.0); Mean Corpuscular Volume 99.2 fL (80-94); Mean Platelet Vol. 9.2 fl (6.2-12.0); Monocyte# 0.88 X10^3/uL; Monocyte% 5.6 % (0-10); NRBC Flagged by Analyzer 0 % (0-5); Neutrophil # 13.68 X10^3/uL (2.7-7.7); Neutrophil % 87.7 % (47-70); Platelet Count 210 K/mm3 (150-450); RBC Distribution Width SD 54.3 fl (35.1-43.9); Red Blood Count 3.88 M/mm3 (4.6-6.2); White Blood Count 15.6 K/mm3 (4.4-11.0)
--- NOTE | 2019-12-04 12:53 | PCM.PN.INT ---
Subjective: Late entry: Patient did well overnight. Patient did not require BiPAP and oxygenation has continued to improve. Patient reports subjective improvement in overall condition. No hemodynamic instability has been reported. Patient's mentation has improved from yesterday. General: Alert, Cooperative, No apparent distress, Disoriented - Intermittently, - - Obese. No conversational dyspnea noted HEENT: Atraumatic, PERRLA, EOMI, Normocephalic, - - No scleral icterus or injection noted Oral: Moist Mucosa, No Gingival or Mucosal Lesions/ Ulcerations, - - Crowded posterior pharynx Neck: Supple, No JVD, No Nodes, Trachea Midline Lungs: No rhonchi, No wheeze, No rales, Diminished, - - Symmetric expansion. No dullness to percussion. Cardiovascular: Regular rate, Regular Rhythm, Normal S1, Normal S2, No murmurs, No rub noted, No Gallop Abdomen: Bowel Sounds Present, Soft, Non Tender, Non-Distended, Obese Extremities: No clubbing, No cyanosis, No edema Skin: - - No change compared to previous Musculoskeletal: No Tenderness to Palpation of Joints or Extremities Lymphatic: No Cervical, Supraclavicular, or Inguinal Adenopathy Neurological: Cranial nerves II-XII grossly intact, Neuro grossly intact, Motor Exam 5/5 strength throughout Psych/Mental Status: Normal Affect, Appropriate Vital Signs Temp Pulse Resp BP Pulse Ox 36.3 C L 94 16 140/75 H 95 12/04/19 11:12 12/04/19 11:27 12/04/19 11:12 12/04/19 11:12 12/04/19 11:12 Oxygen Flow Rate (L/min) 3 Oxygen Delivery Method Nasal Cannula Weight: 130 kg Body Mass Index (BMI) 35.8 Intake and Output for Last 24 Hours 12/02/19 12/03/19 12/04/19 23:59 23:59 23:59 Intake Total 3305.0 / 3305.0 3005 / 3245 545 / 545 Output Total 350 / 350 3200 / 3650 1200 / 1200 Balance 2955.0 / 2955.0 -195 / -405 -655 / -655 Labs (Last 48 Hours) 12/02/19 12/02/19 12/03/19 15:30 16:30 03:10 WBC RBC Hgb Hct MCV MCH MCHC RDW Std Deviation RDW Coeff of Adalberto Plt Count MPV Immature Gran % (Auto) Neut % (Auto) Lymph % (Auto) [place] % (Auto) Eos % (Auto) Baso % (Auto) Absolute Neuts (auto) Absolute Lymphs (auto) Nucleated RBC % PT INR Sodium Potassium Chloride Carbon Dioxide Anion Gap BUN Creatinine Estim Creat Clear Calc Est GFR (MDRD) Af Amer Est GFR (MDRD) Non-Af BUN/Creatinine Ratio Glucose Lactic Acid 2.7 H* Calcium Total Bilirubin AST ALT Alkaline Phosphatase Total Protein Albumin Globulin Albumin/Globulin Ratio Urine Color Yellow Urine Clarity Clear Urine pH 6.0 Ur Specific [place] 1.025 Urine Protein 15 H Urine Glucose (UA) Normal Urine Ketones Negative Urine Occult Blood 10 H Urine Nitrite Negative Urine Bilirubin Negative Urine Urobilinogen Normal Ur Leukocyte Esterase Negative COVID-19 ([facility]LIE) Pending 12/03/19 12/03/19 12/04/19 04:25 04:25 05:30 WBC 14.2 H 15.6 H RBC 3.90 L 3.88 L Hgb 12.7 L 12.6 L Hct 38.2 L 38.5 L MCV 97.9 H 99.2 H MCH 32.6 H 32.5 H MCHC 33.2 32.7 RDW Std Deviation 53.6 H 54.3 H RDW Coeff of Adalberto 14.9 H 15.0 H Plt Count 183 210 MPV 9.0 9.2 Immature Gran % (Auto) 0.400 1.200 H Neut % (Auto) 90.1 H 87.7 H Lymph % (Auto) 5.2 L 5.4 L [place]ette % (Auto) 4.2 5.6 Eos % (Auto) 0.0 0.0 Baso % (Auto) 0.1 0.1 Absolute Neuts (auto) 12.8 H 13.7 H Absolute Lymphs (auto) 0.74 L 0.84 Nucleated RBC % 0 0 PT INR Sodium 141 Potassium 3.7 Chloride 109 H Carbon Dioxide 25.0 Anion Gap 7 BUN 14 Creatinine 0.77 Estim Creat Clear Calc 118.89 Est GFR (MDRD) Af Amer 131 Est GFR (MDRD) Non-Af 108 BUN/Creatinine Ratio 18.1 Glucose 140 H Lactic Acid Calcium 7.7 L Total Bilirubin 0.50 AST 21 ALT 25 Alkaline Phosphatase 84 Total Protein 6.3 L Albumin 2.6 L Globulin 3.7 Albumin/Globulin Ratio 0.7 L Urine Color Urine Clarity Urine pH Ur Specific [place] Urine Protein Urine Glucose (UA) Urine Ketones Urine Occult Blood Urine Nitrite Urine Bilirubin Urine Urobilinogen Ur Leukocyte Esterase COVID-19 (RYLIE) 12/04/19 12/04/19 05:30 05:30 WBC RBC Hgb Hct MCV MCH MCHC RDW Std Deviation RDW Coeff of Adalberto Plt Count MPV Immature Gran % (Auto) Neut % (Auto) Lymph % (Auto) [place] % (Auto) Eos % (Auto) Baso % (Auto) Absolute Neuts (auto) Absolute Lymphs (auto) Nucleated RBC % PT 27.5 H INR 2.6 Sodium 142 Potassium 4.3 Chloride 109 H Carbon Dioxide 28.0 Anion Gap 5 BUN 11 Creatinine 0.75 Estim Creat Clear Calc 122.06 Est GFR (MDRD) Af Amer 136 Est GFR (MDRD) Non-Af 112 BUN/Creatinine Ratio 14.7 Glucose 123 H Lactic Acid Calcium 8.2 L Total Bilirubin AST ALT Alkaline Phosphatase Total Protein Albumin Globulin Albumin/Globulin Ratio Urine Color Urine Clarity Urine pH Ur Specific [place] Urine Protein Urine Glucose (UA) Urine Ketones Urine Occult Blood Urine Nitrite Urine Bilirubin Urine Urobilinogen Ur Leukocyte Esterase COVID-19 ([facility]LIE) Microbiology 12/03/19 03:10 Urine, Clean Catch Urine Culture - Preliminary Culture exhibits no growth. 12/02/19 11:10 Blood Culture (Wb) - Anticubital Left Blood Culture - Preliminary No growth in 48 hours. 12/02/19 11:05 Blood Culture (Wb) - Right Hand Blood Culture - Preliminary No growth in 48 hours. 12/02/19 11:16 Mucosa - Nasopharyngeal Respiratory Panel (PCR) - Final Medical Necessity - Tobacco Use Smoking Status: Former smoker Tobacco Use: Non-smoker Assessment/Plan All Active Problems (Last Updated 12/03/19 @ 09:[address] Brandy Larkin MD) Acute respiratory failure with hypoxia (Acute) Community acquired pneumonia (Acute) Asthma exacerbation (Acute) RECOMMENDATIONS: 1. Continue current antibiotics for community-acquired pneumonia to complete a 5-day course 2. Wean steroids as tolerated 3. Continue with bronchodilators 4. Await COVID testing. 5. Okay to transfer from the intensive care unit IMPRESSIONS: 1. Acute hypoxic respiratory failure My personal review of the CT scan the chest shows a right lower lobe infiltrate. This was not obvious on chest x-ray. There is significant motion artifact. Patient does appear to be responding to antibiotic therapy. Oxygenation is much improved. Will decrease steroid therapy. Patient's predominant pathology from a lung perspective is asthma. COVID 19 testing is still pending. Doubt PE as patient is currently therapeutic on warfarin therapy. 2. Metabolic encephalopathy Slowly improving. Clinical suspicion for an element of hypoxia leading to increased confusion. Patient does have an element of dementia at baseline, but is able to recognize me from the office. We will continue to monitor closely. Delirium protocol is in place. Recent MRI, prior to this hospitalization, showed no acute cerebral insult, and CT of the head shows no acute bleed. 3. Hypotension Resolved. Patient with a baseline of hypertension, so baseline medications will be held. No additional fluid boluses have been required. Will need to watch closely as patient also has a history of chronic combined CHF. Patient does not appear to be in acute CHF at this time. Patient's INR is therapeutic, so additional DVT prophylaxis is likely not indicated. Recheck INR daily as long as on antibiotics 4. Dementia/CAD status post CABG/history of CVA/aortic valve replacement/anxiety/depression/poor history Complicates care, management, recovery and prognosis. Likely okay to continue baseline psychiatric medications. Would watch INR on a daily basis for Coumadin dosing. Inpatient E&M: [id number] [facility] L3
[2019-12-04] MEDS: Acetaminophen 325 MG Tablet 650 MG PO (18:13)
--- NOTE | 2019-12-04 18:45 | CPS ---
pt refused BiPAP for tonight
--- NOTE | 2019-12-04 20:12 | NURSING ---
Received notification from Nursing Knife Setter Fabiola Verma that patients covid 19 test result came back negative.
--- NOTE | 2019-12-04 20:27 | PCM.PN.BLA ---
Progress Note Notified by nursing supervisor parachute manufacturing that Covid 19 test was negative. Also comprehensive respiratory pathogen panel was negative. Discontinue covid 19 precautions. STROKE Vital Signs/Narrative: Vital Signs Pulse Resp 12/04/19 18:45 62 15
[2019-12-04] MEDS: Tamsulosin HCl 0.4 MG Capsule PO (21:17)
[2019-12-04] MEDS: Donepezil HCl 10 MG Tablet PO (21:17)
[2019-12-04] MEDS: Montelukast 10 MG Tablet PO (21:17)
--- NOTE | 2019-12-04 21:55 | PCM.PN.BLA ---
Progress Note Toradol and K pad given for back pain. STROKE Vital Signs/Narrative: Vital Signs Temp Pulse Resp BP Pulse Ox 12/04/19 21:00 97.5 F L 74 18 130/70 H 96 12/04/19 19:00 89 12/04/19 18:45 62 15
[2019-12-04] MEDS: Ketorolac 10 MG Tablet PO (22:03)
[2019-12-05] VITALS (10 sets, daily range): BP systolic 134–143; BP diastolic 59–65; PULSE 51–86; RESP 18–20; TEMP 35.5–36.4; O2SAT 85–96
[2019-12-05] MEDS: Acetaminophen 325 MG Tablet 650 MG PO (02:58)
[2019-12-05] MEDS: 0.9% Saline Lock 10 ML Syringe IV (02:59)
[2019-12-05] MEDS: Benztropine 2 MG Tablet 0.5 MG PO (05:48)
[2019-12-05] MEDS: busPIRone 15 MG TABLET PO (05:48)
[2019-12-05 06:13] LABS: Absolute Neutrophil Count 10.8 X10^3/uL (2.0-7.7); Basophil# 0.01 X10^3/uL; Basophil% 0.1 % (0-1); Hematocrit 39.1 % (40-54); Hemoglobin 12.8 g/dL (13.0-16.5); Lymphocyte % 7.2 % (19-41); Mean Corp Hgb Conc 32.7 g/dL (32-36); Mean Corpuscular Hgb 32.4 pg (27.0-32.0); Mean Platelet Vol. 9.2 fl (6.2-12.0); Monocyte# 0.72 X10^3/uL; Monocyte% 5.7 % (0-10); NRBC Flagged by Analyzer 0 % (0-5); Neutrophil # 10.77 X10^3/uL (2.7-7.7); Neutrophil % 85.7 % (47-70); Platelet Count 202 K/mm3 (150-450); RBC Distribution Width CV 14.8 % (11.6-14.6); RBC Distribution Width SD 53.5 fl (35.1-43.9); Red Blood Count 3.95 M/mm3 (4.6-6.2); White Blood Count 12.6 K/mm3 (4.4-11.0)
[2019-12-05 06:26] LABS: Anion Gap 7 (5-15); BUN 16 mg/dL (7-18); BUN/Creat Ratio 19.7 RATIO (10-20); Calcium,Total 8.3 mg/dL (8.5-10.1); Chloride 110 mmol/L (98-107); Creatinine, Serum 0.81 mg/dL (0.70-1.30); EST Glomerular Filtration Rate 102 mL/min (>60); Est Glom Filt Rate - Afr Amer 124 mL/min (>60); Estimated Creatinine Clearance 113.01 ml/min; Glucose 119 mg/dL (74-106); Potassium 4.2 mmol/L (3.5-5.1); Sodium Level 143 mmol/L (136-145)
[2019-12-05 06:32] LABS: International Normalized Ratio 2.4; Prothrombin Time (Protime)PT. 26.5 SECONDS (11.7-14.9)
[2019-12-05] MEDS: Albuterol 2.5 MG/3 ML VIAL.NEB. INHALATION (06:36)
--- NOTE | 2019-12-05 07:08 | PN_ITS ---
Patient Problems: Active and Suspected Problems (Last Updated 12/03/19 @ 09:[address] Brandy Larkin MD) Acute respiratory failure with hypoxia (Acute) Community acquired pneumonia (Acute) Asthma exacerbation (Acute) Subjective: Patient transferred out of the intensive care unit yesterday. Patient states that he has been doing well overnight and has saturated well on room air. No bleeding has been reported. Patient has not had any significant ambulation, but was just rolled out of COVID yesterday. - Physical Exam Vitals/I&O's: Vital Signs Temp Pulse Resp BP Pulse Ox 36.4 C L 70 18 134/65 H 91 12/05/19 02:52 12/05/19 06:36 12/05/19 06:36 12/05/19 02:52 12/05/19 06:36 Oxygen Flow Rate (L/min) 2 Oxygen Delivery Method Room Air Weight: 127.9 kg Body Mass Index (BMI) 35.8 Intake and Output for Last 24 Hours 12/03/19 12/04/19 12/05/19 23:59 23:59 23:59 Intake Total 3005 / 3245 1325 / 1325 50 / 50 Output Total 3200 / 3650 3600 / 3600 Balance -195 / -405 -2275 / -2275 50 / 50 General: Alert, Oriented x3, Cooperative, No apparent distress, - - Back to baseline from a mentation standpoint. Obese. No conversational dyspnea. HEENT: Atraumatic, PERRLA, EOMI, Normocephalic, - - No scleral icterus or injection noted Oral: Moist Mucosa, No Gingival or Mucosal Lesions/ Ulcerations Neck: Supple, No Nodes, Trachea Midline Lungs: No rhonchi, No rales, Diminished, Wheezes - Sporadic Cardiovascular: Regular rate, Regular Rhythm, Normal S1, Normal S2, No murmurs, No rub noted, No Gallop Abdomen: Bowel Sounds Present, Soft, Non Tender, Non-Distended, Obese Extremities: No clubbing, No cyanosis, Edema - Trace lower extremity Skin: No rashes, No breakdown Musculoskeletal: No Tenderness to Palpation of Joints or Extremities Lymphatic: No Cervical, Supraclavicular, or Inguinal Adenopathy Neurological: Neuro grossly intact - Grossly back to baseline function. Does have history of CVA in the past Psych/Mental Status: Normal Affect, Appropriate Microbiology Past 72 Hours 12/03/19 03:10 Urine, Clean Catch Urine Culture - Preliminary Culture exhibits no growth. 12/02/19 11:10 Blood Culture (Wb) - Anticubital Left Blood Culture - Preliminary No growth in 48 hours. 12/02/19 11:05 Blood Culture (Wb) - Right Hand Blood Culture - Preliminary No growth in 48 hours. 12/02/19 11:16 Mucosa - Nasopharyngeal Respiratory Panel (PCR) - Final Laboratory Results 12/02/19 16:30: COVID-19 (RYLIE) 12/04/19 05:30: WBC 15.6 H, RBC 3.88 L, Hgb 12.6 L, Hct 38.5 L, MCV 99.2 H, MCH 32.5 H, MCHC 32.7, RDW Std Deviation 54.3 H, RDW Coeff of Adalberto 15.0 H, Plt Count 210, MPV 9.2, Immature Gran % (Auto) 1.200 H, Neut % (Auto) 87.7 H, Lymph % (Auto) 5.4 L, [place] % (Auto) 5.6, Eos % (Auto) 0.0, Baso % (Auto) 0.1, Absolute Neuts (auto) 13.7 H, Absolute Lymphs (auto) 0.84, Nucleated RBC % 0 12/04/19 05:30: PT 27.5 H, INR 2.6 12/04/19 05:30: Sodium 142, Potassium 4.3, Chloride 109 H, Carbon Dioxide 28.0, Anion Gap 5, BUN 11, Creatinine 0.75, Estim Creat Clear Calc 122.06, Est GFR ( RD) Af Amer 136, Est GFR (MDRD) Non-Af 112, BUN/Creatinine Ratio 14.7, Glucose 123 H, Calcium 8.2 L 12/05/19 06:04: WBC 12.6 H, RBC 3.95 L, Hgb 12.8 L, Hct 39.1 L, MCV 99.0 H, MCH 32.4 H, MCHC 32.7, RDW Std Deviation 53.5 H, RDW Coeff of Adalberto 14.8 H, Plt Count 202, MPV 9.2, Immature Gran % (Auto) 1.300 H, Neut % (Auto) 85.7 H, Lymph % (Auto) 7.2 L, [place] % (Auto) 5.7, Eos % (Auto) 0.0, Baso % (Auto) 0.1, Absolute Neuts (auto) 10.8 H, Absolute Lymphs (auto) 0.90, Nucleated RBC % 0 12/05/19 06:04: PT 26.5 H, INR 2.4 12/05/19 06:04: Sodium 143, Potassium 4.2, Chloride 110 H, Carbon Dioxide 26.0, Anion Gap 7, BUN 16, Creatinine 0.81, Estim Creat Clear Calc 113.01, Est GFR (MDRD) Af Amer 124, Est GFR (MDRD) Non-Af 102, BUN/Creatinine Ratio 19.7, Glucose 119 H, Calcium 8.3 L Current Medications Acetaminophen (Tylenol) 650 mg PO Q6H PRN PRN PRN Reason: Pain Score 1-10/Temp > 100.7 F Last Admin: 12/05/19 02:58 Dose: 650 mg Documented by: Albuterol Sulfate (Ventolin Aerosols) 2.5 mg INHALATION Q6HWA.RT [facility] Last Admin: 12/05/19 06:36 Dose: 2.5 mg Documented by: Benztropine Mesylate (Cogentin) 0.5 mg PO TID [facility] Last Admin: 12/05/19 05:48 Dose: 0.5 mg Documented by: Bupropion HCl (Wellbutrin Xl) 150 mg PO QAM [facility] Last Admin: 12/04/19 10:39 Dose: 150 mg Documented by: Buspirone HCl (Buspar) 15 mg PO TID [facility] Last Admin: 12/05/19 05:48 Dose: 15 mg Documented by: Clopidogrel Bisulfate (Plavix) 75 mg PO DAILY [facility] Last Admin: 12/04/19 10:39 Dose: 75 mg Documented by: Donepezil HCl (Aricept) 10 mg PO QHS [facility] Last Admin: 12/04/19 21:17 Dose: 10 mg Documented by: Fluoxetine HCl (Prozac) 40 mg PO DAILY [facility] Last Admin: 12/04/19 10:39 Dose: 40 mg Documented by: Guaifenesin (Mucinex) 1,200 mg PO BID [facility] Last Admin: 12/04/19 21:16 Dose: 1,200 mg Documented by: Ceftriaxone Sodium (Rocephin) 1 gm in 50 mls @ 100 mls/hr IV Q24 [facility] Last Infusion: 12/04/19 11:09 Dose: Infused Documented by: Sodium Chloride () 250 mls @ 15 mls/hr IV .[id number] PRN PRN Reason: Saline Flush Sodium Chloride () 250 mls @ 15 mls/hr IV .[id number] PRN PRN Reason: Additional IVPB Infusion Loratadine (Claritin) 10 mg PO DAILY [facility] Last Admin: 12/04/19 10:39 Dose: 10 mg Documented by: Magnesium Hydroxide (Milk Of Magnesia) 30 ml PO DAILY PRN PRN PRN Reason: Constipation Montelukast Sodium (Singulair) 10 mg PO QHS [facility] Last Admin: 12/04/19 21:17 Dose: 10 mg Documented by: Nitroglycerin (Nitrostat) 0.4 mg SUBLINGUAL Q5M PRN PRN Reason: CARDIAC/CHEST PAIN Ondansetron HCl (Zofran) 4 mg IV Q8H PRN PRN PRN Reason: NAUSEA/VOMITING Last Admin: 12/03/19 19:57 Dose: 4 mg Documented by: Pantoprazole Sodium (Protonix) 40 mg PO BID [facility] Last Admin: 12/04/19 21:17 Dose: 40 mg Documented by: Potassium Chloride (K-Dur) [facility] Last Admin: 12/04/19 09:47 Dose: Not Given Documented by: Psyllium Hydrophilic Mucilloid (Metamucil) 1 packet PO DAILY PRN PRN PRN Reason: Constipation Risperidone (Risperdal) 4 mg PO BID [facility] Last Admin: 12/04/19 21:18 Dose: 4 mg Documented by: Sodium Chloride () 10 - 40 ml IV UD PRN PRN Reason: SALINE FLUSH Last Admin: 12/05/19 02:59 Dose: 10 ml Documented by: Sodium Chloride () 10 - 40 ml IV UD PRN PRN Reason: SALINE FLUSH Last Admin: 12/04/19 05:30 Dose: 10 ml Documented by: Tamsulosin HCl (Flomax) 0.4 mg PO QHS [facility] Last Admin: 12/04/19 21:17 Dose: 0.4 mg Documented by: Warfarin Sodium (Coumadin (Pbkc)) 6 mg PO @1700 [facility] Last Admin: 12/04/19 16:58 Dose: 6 mg Documented by: Warfarin Sodium (Coumadin ([facility])) 7.5 mg PO SuMoFrSa@1700 TRESSA; Protocol Medical Necessity - Tobacco Use Smoking Status: Former smoker Tobacco Use: Non-smoker Assessment/Plan All Active Problems (Last Updated 12/03/19 @ 09:[address] Brandy Larkin MD) Acute respiratory failure with hypoxia (Acute) Community acquired pneumonia (Acute) Asthma exacerbation (Acute) RECOMMENDATIONS: 1. Okay to transition to p.o. antibiotics to complete a 5-day course 2. Transition to prednisone therapy and wean over the next 12 days 3. Continue with bronchodilators 4. Walking oximetry prior to discharge. Okay to discharge if no supplemental oxygen is required 5. Okay to discharge from a pulmonary perspective with a 2-week follow-up with nurse practitioner IMPRESSIONS: 1. Acute hypoxic respiratory failure My personal review of the CT scan the chest shows a right lower lobe infiltrate. This was not obvious on chest x-ray. There is significant motion artifact. Patient does appear to be responding to antibiotic therapy. Oxygenation is much improved. We will transition to prednisone therapy at home. This can be weaned over the next 12 days. Patient's predominant pathology from a lung perspective is asthma. COVID 19 testing is negative. Doubt PE as patient is currently therapeutic on warfarin therapy. 2. Metabolic encephalopathy Resolved. Clinical suspicion for an element of hypoxia leading to increased confusion. Patient does have an element of dementia at baseline. Delirium protocol is in place. Recent MRI, prior to this hospitalization, showed no acute cerebral insult, and CT of the head shows no acute bleed. 3. Hypotension Resolved. Patient with a baseline of hypertension, so baseline medication s will be held. No additional fluid boluses have been required. Will need to watch closely as patient also has a history of chronic combined CHF. Patient does not appear to be in acute CHF at this time. Patient's INR is therapeutic, so additional DVT prophylaxis is likely not indicated. Recheck INR daily as long as on antibiotics 4. Dementia/CAD status post CABG/history of CVA/aortic valve replacement/anxiety/depression/poor history Complicates care, management, recovery and prognosis. Likely okay to continue baseline psychiatric medications. Would watch INR on a daily basis for Coumadin dosing. Inpatient E&M: [id number] [facility] Hosp L2
--- NOTE | 2019-12-05 09:02 | DCINST_ITS ---
- Discharge Diagnoses Current Active Problems: Current Active and Chronic Problems (Last Updated 12/03/19 @ 09:[address] Brandy Larkin MD) Acute respiratory failure with hypoxia (Acute) Community acquired pneumonia (Acute) Asthma exacerbation (Acute) You will use the following diet at home:: Cardiac Your food should be the consistency of: Regular Discharge Activity: Return to Normal Activity Weight Bearing Status: Weight bearing as tolerated Call your doctor if you observe: Fever of 101 or Higher, Shortness of breath, Dizziness, Fainting spells, Chest pain, Increased palpitations (irregular heartbeat), Uncontrolled pain Allergies/Adverse Reactions: Allergies iodine Allergy (Verified 12/02/19 11:01) Other low BP- does fine with premedication contrast dye Allergy (Uncoded 12/02/19 11:01) Shortness of breath Medications to take at Discharge Benztropine [Cogentin] 0.5 mg PO TID 10/20/15 Clopidogrel Bisulfate [Plavix] 75 mg PO DAILY 10/20/15 Risperidone [Risperdal] 4 mg PO BID 10/20/15 Pantoprazole Sodium [Protonix] 40 mg PO BID 02/01/17 Tamsulosin HCl [Flomax] 0.4 mg PO QHS 02/01/17 bupropion HCl 150 mg 24 hr tablet, extended release 150 mg PO QAM 09/12/18 buspirone 10 mg tablet 15 mg PO TID 09/12/18 cetirizine 10 mg tablet 10 mg PO DAILY 09/12/18 fluoxetine 60 mg tablet 40 mg PO DAILY 09/12/18 naltrexone 50 mg tablet 50 mg PO DAILY 09/12/18 potassium chloride 10 mEq capsule,extended release 10 meq PO DAILY 09/12/18 acapella See Rx Instructions .ROUTE .MEDSUPPLY #1 ea 09/16/18 metoprolol tartrate 25 mg tablet 12.5 mg PO BID #30 tab 09/17/18 Donepezil HCl 10 mg PO QHS 10/03/18 albuterol sulfate 2.5 mg INHALATION Q4H PRN #180 ml 10/23/18 Guaifenesin [Mucinex] 1,200 mg PO BID #20 tab 11/17/18 Meloxicam 15 mg PO DAILY PRN PRN #20 tab 03/11/19 fluticasone 500 mcg-salmeterol 50 mcg/dose blistr powdr for inhalation 1 inh INHALATION BID 03/24/19 furosemide 40 mg tablet 40 mg PO DAILY #30 tab 09/19/19 mepolizumab 100 mg/mL subcutaneous syringe 100 mg SC Q4W #1 ml 10/22/19 montelukast 10 mg tablet 10 mg PO QPM #30 tab 10/22/19 Warfarin Sodium [Coumadin] 6 mg PO TUWETH 12/02/19 Warfarin Sodium [Coumadin] 7.5 mg PO SUMOFRSA 12/02/19 Oxycodone HCl/Acetaminophen [Percocet 10-325 mg Tablet] 1 tab PO Q6H PRN PRN 12/04/19 Cefdinir [Omnicef [equiv]] 300 mg PO Q12H #6 cap 12/05/19 Prednisone 40 mg PO DAILY #30 tab 12/05/19 The following prescriptions were given: Cefdinir [Omnicef [equiv]] 300 mg PO Q12H #6 cap Transmission Status: Pending to [facility] Prednisone 40 mg PO DAILY #30 tab Prescription Printed Primary Care Physician: Bartolo Mitchell DO [Primary Care Provider] - Please follow up with your Primary Care Physician in: 1 week. Test Results: Test results from this visit will be discussed in further detail at your follow- up appointment, if applicable.
[2019-12-05] MEDS: FLUoxetine 20 MG Capsule 40 MG PO (10:10)
[2019-12-05] MEDS: Pantoprazole Sodium 40 MG Tablet PO (10:10)
[2019-12-05] MEDS: guaiFENesin 1,200 MG Tablet 1200 MG PO (10:10)
[2019-12-05] MEDS: buPROPion (XL) 150 MG TABLET.XL PO (10:11)
[2019-12-05] MEDS: RisperiDONE 2 MG Tablet 4 MG PO (10:11)
[2019-12-05] MEDS: predniSONE 20 MG Tablet 40 MG PO (10:11)
[2019-12-05] MEDS: Clopidogrel Bisulfate 75 MG Tablet PO (10:11)
[2019-12-05] MEDS: Metoprolol Tartrate 25 MG Tablet 12.5 MG PO (10:12)
[2019-12-05] MEDS: Ceftriaxone 1 GM/50 ML BAG IV (10:32)
--- NOTE | 2019-12-05 11:09 | CASEMGMT ---
JACQUE CM NOTE: Ambulatory pulse ox completed. Pt does not qualify for oxygen at this time. COVID test returned and is negative. Discharge order is in. PT/OT evals have been ordered but have not been completed at this time. Call placed to PT/OT to let them know of discharge order to have them come see pt prior to being discharged. Per nurse, Valorie, pt ambulated well during testing. PT/OT state evals deferred at this time. Melissa WASHINGTONN RN CM
--- NOTE | 2019-12-05 12:05 | PCM.DC.SUM ---
Discharge Date and Diagnosis - Problem List Patient Problems: Active and Suspected Problems (Last Updated 12/03/19 @ 09:[address] Brandy Larkin MD) Acute respiratory failure with hypoxia (Acute) Community acquired pneumonia (Acute) Date of Admission: 12/02/19 Date of Discharge: 12/05/19 - Primary Discharge Diagnosis Active and Suspected Problems (Last Updated 12/03/19 @ 09:[address] Brandy Larkin MD) #1 probable community-acquired pneumonia. #2 severe sepsis. #3 acute hypoxic respiratory failure. #4 metabolic encephalopathy. - Secondary Discharge Diagnosis Chronic Problems (Last Updated 12/03/19 @ 09:[address] Brandy Larkin MD) CVA (cerebral vascular accident) (Chronic) GERD (gastroesophageal reflux disease) (Chronic) Bipolar 1 disorder (Chronic) Depression (Chronic) Lumbar disc disease (Chronic) Peptic ulcer disease (Chronic) Status post placement of implantable loop recorder (Chronic ~2004) Dementia (Chronic) Obesity (BMI 30-39.9) (Chronic) Stage 1 mild COPD by GOLD classification (Chronic) Lung nodule (Chronic) Repeat CT of the chest due September 12, 2019 JAMES (obstructive sleep apnea) (Chronic) AHI 16.7 - noncompliant Nonrheumatic aortic (valve) stenosis with insufficiency (Chronic) Atherosclerosis of coronary artery of false pass heart without angina pectoris (Chronic) CABG MEDINA-LAD, SVG-D1, SVG-OM1, SVG-PDA 01/2003 POBA-Anastomosis site of the MEDINA-LAD 06/16/2004 [facility] [id number] 03/2005 [id number] 07/15/2012 @ [facility] History of coronary artery stent placement (Chronic) POBA-Anastomosis site of the MEDINA-LAD 06/16/2004 [facility] [id number] 03/2005 @ [facility] [id number] 07/15/2012 [facility] Presence of aortocoronary bypass graft (Chronic ~01/2003) MEDINA-LAD, SVG-D1, SVG-OM1, SVG-PDA 01/2003 [facility] H/O aortic valve replacement (Chronic ~09/2004) Mechanical, on Coumadin therapy 09/2004 [facility] Valve @ [facility] Hypertension (Chronic) Hospital Course and Treatment Imaging Results: Clinical Impression(s) from Imaging Studies Chest X-Ray 12/02/19 12:07 IMPRESSION: Stable mild increased markings at the left lung base suggestive of scarring. Electronically Signed: Floyd Lobato, at 12:41 EDT , Service support , Brain CT 12/02/19 12:55 IMPRESSION: Chronic involutional changes of the brain. Electronically Signed: Floyd Lobato, at 13:34 EDT , Service support , Chest CT 12/02/19 13:05 IMPRESSION: Progressive increased markings at the lung bases suggestive of scarring. Electronically Signed: Floyd Florrosendopuneet, at 13:47 EDT , Service support , Dr. Norton, pulmonology. Operations: None Procedures: None Summary of Care Provided: Patient seen and examined on the day of discharge and appeared to be stable to be discharged home. Shortness of breath resolved and he remained on room air and pulse ox has been around 94%. Other vital signs are stable. The patient is a 63 year old M presented to the emergency room because of shortness of breath and he was found to have severe sepsis secondary to probable community-acquired pneumonia which is complicated by acute hypoxic respiratory failure and acute metabolic encephalopathy. Also, possibly he had asthma exacerbation. His chest x-ray revealed scarring of the left lung base. CT scan chest without contrast revealed probable right lower lobe infiltrate although it was read by radiology as scarring. Initially, patient was admitted to intensive care unit, was started on BiPAP, IV antibiotics, IV steroids and bronchodilators. There was a concern that he may have COVID-19 viral pneumonia but COVID-19 testing came back negative. Respiratory panel for viruses was negative. Blood and urine culture showed no growth. With IV antibiotics and IV steroids treatment, patient symptoms improved. His oxygenation improved and he was able to come off oxygen. Initially, he required BiPAP and oxygen of up to 6 L. He remained afebrile for more than 48 hours. Ambulatory pulse oximetry performed and his pulse ox remained around 95% on room air with ambulation. Patient discharged home in a stable medical condition, discharged on cefdinir 300 mg p.o. twice daily for 3 days more to complete total of 7 days of treatment, discharged on prednisone taper, continued on his previous home medications without any changes, recommended follow-up with PCP in 1 week. Patient Problems: Active and Suspected Problems (Last Updated 12/03/19 @ 09:[address] Brandy Larkin MD) Acute respiratory failure with hypoxia (Acute) Community acquired pneumonia (Acute) - Physical Exam Vitals/I&O's: Vital Signs Temp Pulse Resp BP Pulse Ox 96 F L 69 18 143/59 H 96 12/05/19 09:58 12/05/19 10:12 12/05/19 09:58 12/05/19 09:58 12/05/19 10:40 Oxygen Flow Rate (L/min) 2 Oxygen Delivery Method Room Air Weight: 281 lb 15.539 oz Body Mass Index (BMI) 35.8 Intake and Output for Last 24 Hours 12/03/19 12/04/19 12/05/19 23:59 23:59 23:59 Intake Total 3005 / 3245 1325 / 1325 50 / 50 Output Total 3200 / 3650 3600 / 3600 Balance -195 / -405 -2275 / -2275 50 / 50 General: Alert, Oriented x3, Cooperative, No apparent distress HEENT: Atraumatic, PERRLA, EOMI, Normocephalic Oral: Moist Mucosa, No Gingival or Mucosal Lesions/ Ulcerations Neck: Supple, No JVD, Negative Carotid Bruits, Trachea Midline, Thyroid Normal Size and Texture Lungs: Clear to auscultation, Normal air movement, No rhonchi, No wheeze, No rales, Diminished Cardiovascular: Regular rate, Regular Rhythm, Normal S1, Normal S2, PMI Normal Abdomen: Bowel Sounds Present, Soft, Non Tender, Non-Distended, No Hepato-splenomegaly Extremities: No clubbing, No cyanosis, No edema Skin: No rashes, No breakdown Lymphatic: No Cervical, Supraclavicular, or Inguinal Adenopathy Neurological: Cranial nerves II-XII grossly intact, Neuro grossly intact Psych/Mental Status: Normal Affect, Appropriate Microbiology Past 72 Hours 12/03/19 03:10 Urine, Clean Catch Urine Culture - Final Culture exhibits no growth. 12/02/19 11:10 Blood Culture (Wb) - Anticubital Left Blood Culture - Preliminary No growth in 48 hours. 12/02/19 11:05 Blood Culture (Wb) - Right Hand Blood Culture - Preliminary No growth in 48 hours. 12/02/19 11:16 Mucosa - Nasopharyngeal Respiratory Panel (PCR) - Final Laboratory Results 12/02/19 16:30: COVID-19 (RYLIE) 12/05/19 06:04: WBC 12.6 H, RBC 3.95 L, Hgb 12.8 L, Hct 39.1 L, MCV 99.0 H, MCH 32.4 H, MCHC 32.7, RDW Std Deviation 53.5 H, RDW Coeff of Adalberto 14.8 H, Plt Count 202, MPV 9.2, Immature Gran % (Auto) 1.300 H, Neut % (Auto) 85.7 H, Lymph % (Auto) 7.2 L, [place] % (Auto) 5.7, Eos % (Auto) 0.0, Baso % (Auto) 0.1, Absolute Neuts (auto) 10.8 H, Absolute Lymphs (auto) 0.90, Nucleated RBC % 0 12/05/19 06:04: PT 26.5 H, INR 2.4 12/05/19 06:04: Sodium 143, Potassium 4.2, Chloride 110 H, Carbon Dioxide 26.0, Anion Gap 7, BUN 16, Creatinine 0.81, Estim Creat Clear Calc 113.01, Est GFR (MDRD) Af Amer 124, Est GFR (MDRD) Non-Af 102, BUN/Creatinine Ratio 19.7, Glucose 119 H, Calcium 8.3 L Discharge Activity: Return to Normal Activity Weight Bearing Status: Weight bearing as tolerated Call your doctor if you observe: Fever of 101 or Higher, Shortness of breath, Dizziness, Fainting spells, Chest pain, Increased palpitations (irregular heartbeat), Uncontrolled pain Home Medications: Medications to take at Discharge Benztropine [Cogentin] 0.5 mg PO TID 10/20/15 Clopidogrel Bisulfate [Plavix] 75 mg PO DAILY 10/20/15 Risperidone [Risperdal] 4 mg PO BID 10/20/15 Pantoprazole Sodium [Protonix] 40 mg PO BID 02/01/17 Tamsulosin HCl [Flomax] 0.4 mg PO QHS 02/01/17 bupropion HCl 150 mg 24 hr tablet, extended release 150 mg PO QAM 09/12/18 buspirone 10 mg tablet 15 mg PO TID 09/12/18 cetirizine 10 mg tablet 10 mg PO DAILY 09/12/18 fluoxetine 60 mg tablet 40 mg PO DAILY 09/12/18 naltrexone 50 mg tablet 50 mg PO DAILY 09/12/18 potassium chloride 10 mEq capsule,extended release 10 meq PO DAILY 09/12/18 acapella See Rx Instructions .ROUTE .MEDSUPPLY #1 ea 09/16/18 metoprolol tartrate 25 mg tablet 12.5 mg PO BID #30 tab 09/17/18 Donepezil HCl 10 mg PO QHS 10/03/18 albuterol sulfate 2.5 mg INHALATION Q4H PRN #180 ml 10/23/18 Guaifenesin [Mucinex] 1,200 mg PO BID #20 tab 11/17/18 Meloxicam 15 mg PO DAILY PRN PRN #20 tab 03/11/19 fluticasone 500 mcg-salmeterol 50 mcg/dose blistr powdr for inhalation 1 inh INHALATION BID 03/24/19 furosemide 40 mg tablet 40 mg PO DAILY #30 tab 09/19/19 mepolizumab 100 mg/mL subcutaneous syringe 100 mg SC Q4W #1 ml 10/22/19 montelukast 10 mg tablet 10 mg PO QPM #30 tab 10/22/19 Warfarin Sodium [Coumadin] 6 mg PO TUWETH 12/02/19 Warfarin Sodium [Coumadin] 7.5 mg PO SUMOFRSA 12/02/19 Oxycodone HCl/Acetaminophen [Percocet 10-325 mg Tablet] 1 tab PO Q6H PRN PRN 12/04/19 Cefdinir [Omnicef [equiv]] 300 mg PO Q12H #6 cap 12/05/19 Prednisone 40 mg PO DAILY #30 tab 12/05/19 Following Prescrptions Were Given to Patient: Cefdinir [Omnicef [equiv]] 300 mg PO Q12H #6 cap Transmission Status: Received by [facility] Prednisone 40 mg PO DAILY #30 tab Prescription Printed Primary Care Physician: Bartolo Mitchell DO [Primary Care Provider] - Please follow up with your Primary Care Physician in: 1 week. Disposition: Home Minutes spent on discharge:: 32 Patient Condition:: Stable Medical Necessity - Tobacco Use Smoking Status: Former smoker Tobacco Use: Non-smoker Meaningful Use Info Meaningful Use Diagnoses (Choose all that apply): None applicable Inpatient E&M: 32093 Disch Hosp
--- NOTE | 2019-12-08 14:57 | CASEMGMT ---
DC DATE: 12.05.2019 DC DISPOSITION: Home DC DIAGNOSIS: pneumonia LACE/STRATA: 07/06 F/U APPTS MADE PRIOR TO DC: no PRESCRIPTIONS ACQUIRED BY PT: yes Call to patient's cell phone. Intro role of CM to patient who states he is improving. No questions re: medications, f/u or instructions. RN CM thanked pt for using [facility] and pt states he has no care improvement suggestions. States the care was great. Ruiz WASHINGTONN RN ACM
== END 2019-12-05 11:20 | disposition home or self-care (01) | DRG 871 ==
LOC: ED 14:30 → ICU 14:37 → MS2 12-04 14:46
PROVIDERS: Internal Medicine Critical Care Medicine; Admitting Provider Internal Medicine; Emergency Provider Emergency Medicine; PCP Preventive Medicine Occupational Medicine; Visit Provider Hospitalist
DX: A41.9 Sepsis, unspecified organism (principal); J18.9 Pneumonia, unspecified organism; J96.01 Acute respiratory failure with hypoxia; G93.41 Metabolic encephalopathy; J44.0 Chronic obstructive pulmonary disease with (acute) lower respiratory infection; J45.51 Severe persistent asthma with (acute) exacerbation; E87.2 Acidosis; I50.42 Chronic combined systolic (congestive) and diastolic (congestive) heart failure; I11.0 Hypertensive heart disease with heart failure; R65.20 Severe sepsis without septic shock; I25.10 Atherosclerotic heart disease of native coronary artery without angina pectoris; I95.9 Hypotension, unspecified; F03.90 Unspecified dementia, unspecified severity, without behavioral disturbance, psychotic disturbance, mood disturbance, and anxiety; K21.9 Gastro-esophageal reflux disease without esophagitis; G47.33 Obstructive sleep apnea (adult) (pediatric); F31.9 Bipolar disorder, unspecified; Z66 Do not resuscitate; E66.9 Obesity, unspecified; Z68.35 Body mass index [BMI] 35.0-35.9, adult; Z79.01 Long term (current) use of anticoagulants; Z79.02 Long term (current) use of antithrombotics/antiplatelets; Z79.1 Long term (current) use of non-steroidal anti-inflammatories (NSAID); Z79.899 Other long term (current) drug therapy; I25.2 Old myocardial infarction; Z86.73 Personal history of transient ischemic attack (TIA), and cerebral infarction without residual deficits; Z87.11 Personal history of peptic ulcer disease; Z87.891 Personal history of nicotine dependence; Z95.2 Presence of prosthetic heart valve; Z95.5 Presence of coronary angioplasty implant and graft; Z95.1 Presence of aortocoronary bypass graft
CPT/HCPCS: 36415; 70450; 71045; 71250; 80048; 80053; 80076; 81002; 83605; 83690; 83880; 84484; 85025; 85610; 87040; 87086; 87633; 87635; 93005; 94002; 94003; 94640; 99251; 99285; J7030; A4216; G0463; J2405; U0004

== ENCOUNTER 2019-12-12 12:59 | Outpatient (RCR) | payer MEDICARE, SELFPAY ==
[2019-12-02 15:39] VITALS: BMI 35.8
[2019-12-12 13:26] LABS: International Normalized Ratio 2.7; Prothrombin Time (Protime)PT. 28.1 SECONDS (11.7-14.9)
== END 2020-01-01 18:00 | disposition home or self-care (01) ==
LOC: LAB 12:59
PROVIDERS: Family Provider Preventive Medicine Occupational Medicine; PCP Preventive Medicine Occupational Medicine; Referring Provider Internal Medicine Cardiovascular Disease; Visit Provider Internal Medicine Cardiovascular Disease
DX: Z79.01 Long term (current) use of anticoagulants (principal)
CPT/HCPCS: 36415; 85610

== ENCOUNTER 2020-02-27 12:52 | Outpatient (RCR) | payer MEDICARE, SELFPAY ==
[2019-12-02 15:39] VITALS: BMI 35.8
[2020-02-10 12:21] LABS: Prothrombin Time Fingerstick 26.4 SEC (11.9-14.4)
[2020-02-18 11:44] LABS: International Normalized Ratio 2.2; Prothrombin Time (Protime)PT. 23.6 SECONDS (11.7-14.9)
[2020-02-27 13:16] LABS: International Normalized Ratio 2.7; Prothrombin Time (Protime)PT. 28.2 SECONDS (11.7-14.9)
== END 2020-02-27 18:00 | disposition home or self-care (01) ==
LOC: LAB 12:52
PROVIDERS: Family Provider Preventive Medicine Occupational Medicine; PCP Preventive Medicine Occupational Medicine; Referring Provider Internal Medicine Cardiovascular Disease; Visit Provider Internal Medicine Cardiovascular Disease
DX: Z95.2 Presence of prosthetic heart valve (principal); Z79.01 Long term (current) use of anticoagulants
CPT/HCPCS: 36415; 36416; 85610

== ENCOUNTER 2020-03-18 11:43 | Outpatient (RCR) | payer MEDICARE, SELFPAY ==
[2019-12-02 15:39] VITALS: BMI 35.8
[2020-03-17 09:05] VITALS: BMI 35.8
[2020-03-18 13:25] LABS: International Normalized Ratio 2.7
== END 2020-03-18 18:00 | disposition home or self-care (01) ==
LOC: LAB 11:43
PROVIDERS: Family Provider Preventive Medicine Occupational Medicine; PCP Preventive Medicine Occupational Medicine; Referring Provider Internal Medicine Cardiovascular Disease; Visit Provider Internal Medicine Cardiovascular Disease
DX: Z95.2 Presence of prosthetic heart valve (principal); Z79.01 Long term (current) use of anticoagulants
CPT/HCPCS: 36415; 85610

== ENCOUNTER 2020-04-19 13:39 | Outpatient (RCR) | payer MEDICARE, SELFPAY ==
[2020-03-17 09:05] VITALS: BMI 35.8
[2020-04-19 10:48] VITALS: BMI 37.7
[2020-04-19 14:02] LABS: International Normalized Ratio 2.9
== END 2020-05-03 18:00 | disposition home or self-care (01) ==
LOC: LAB 13:39
PROVIDERS: Family Provider Preventive Medicine Occupational Medicine; PCP Preventive Medicine Occupational Medicine; Referring Provider Internal Medicine Cardiovascular Disease; Visit Provider Internal Medicine Cardiovascular Disease
DX: Z95.2 Presence of prosthetic heart valve (principal); Z79.01 Long term (current) use of anticoagulants; R91.1 Solitary pulmonary nodule
CPT/HCPCS: 36415; 85610

== ENCOUNTER → 2020-04-28 13:48 | Outpatient (CLI) | payer MEDICARE, SELFPAY ==
[2020-04-19 10:48] VITALS: BMI 37.7
--- NOTE | 2020-04-28 13:49 | ECHOD_ITS ---
Reason For Study: Valve Replacement Eval Procedure This was a 2D Doppler, Color Flow transthoracic echocardiogram. Exam performed in department. Left Ventricle Mildly dilated left ventricle. The estimated ejection fraction is 45 %. Septal motion consistent with IVCD. Basal anteroseptal: Mildly hypokinetic. Mid-Anterior : Hypokinetic. Mid-anteroseptal : Mildly hypokinetic. Right Ventricle Normal size and thickness. Normal systolic function. Atria Normal left atrium. Normal right atrium. Normal atrial septum. Mitral Valve The mitral valve is structurally normal. No prolapse or stenosis seen. Trivial mitral valve insufficiency. Tricuspid Valve Normal tricuspid valve. Unable to estimate RV systolic pressure due to insufficient tricuspid regurgitant envelope. Aortic Valve Peak aortic valve gradient 14 mmHg. Mean aortic valve gradient 8 mmHg. Stable appearing mechanical aortic valve apparatus. Pulmonic Valve Normal pulmonic valve. Great Vessels Mildly dilated aortic root. Mild atherosclerosis of the aortic arch. Normal inferior vena cava. Inferior vena cava collapse with sniff. Pericardium/Pleural No pericardial effusion. Medication Diluted definity 4ml given slow IV push to enhance endocardial definition. MMode/2D Measurements & Calculations LVIDd: 5.2 cm IVSd: 1.5 cm LVOT diam: 2.7 cm LVIDs: 3.7 cm LVPWd: 1.1 cm RVDd: 4.1 cm FS: 28.8 % LVOT area: 5.8 cm2 Ao root diam: 4.5 cm LAV(MOD-bp): 56.5 ml LVAd ap4: 44.8 cm2 LAV(MOD-bp) Indexed: 22.6 ml/m2 EDV(MOD-sp4): 171.1 ml LAV(MOD-sp2): 70.4 ml EDV(sp4-el): 175.8 ml LAV(MOD-sp4): 45.3 ml LVAs ap4: 29.2 cm2 ESV(MOD-sp4): 85.9 ml ESV(sp4-el): 87.9 ml EF(MOD-sp4): 49.8 % EF(sp4-el): 50.0 % SV(MOD-sp4): 85.1 ml SV(sp4-el): 87.9 ml LA A4 area: 18.0 cm2 LA dimension(2D): 4.1 cm RA A4 area: 17.9 cm2 Doppler Measurements & Calculations MV E max troy: 57.8 cm/sec Lat Peak E' Troy: 5.9 cm/sec Ao V2 max: 183.4 cm/sec MV A max troy: 92.1 cm/sec E/E' lat: 9.7 Ao max P.5 mmHg MV E/A: 0.63 Ao V2 mean: 133.7 cm/sec Ao mean P.8 mmHg Ao V2 VTI: 35.5 cm JOCELYN(I,D): 4.6 cm2 JOCELYN(V,D): 4.6 cm2 LV V1 max: 145.0 cm/sec SV(LVOT): 164.7 ml PA V2 max: 64.7 cm/sec LV V1 max P.4 mmHg LV V1 mean P.0 mmHg LV V1 mean: 106.8 cm/sec LV V1 VTI: 28.6 cm Interpretation Summary Mildly dilated left ventricle. The estimated ejection fraction is 45 %. Basal anteroseptal: Mildly hypokinetic Mid-Anterior : Hypokinetic Mid-anteroseptal : Mildly hypokinetic Trivial mitral valve insufficiency. Unable to estimate RV systolic pressure due to insufficient tricuspid regurgitant envelope. Mildly dilated aortic root. Mild atherosclerosis of the aortic arch. Stable appearing and normal functioning mechanical aortic valve apparatus. Compared to echo report dated 04/14/2019, no appreciable changes noted. The study was technically difficult. Contrast injection was performed. Ordering Physician: Darrel Uriostegui Referring Physician: Bartolo Mitchell Performed By: Maddy Cagle RDCS, RVT
== END ==
PROVIDERS: PCP Preventive Medicine Occupational Medicine; Referring Provider Internal Medicine Cardiovascular Disease; Visit Provider Internal Medicine Cardiovascular Disease
DX: J96.01 Acute respiratory failure with hypoxia (principal); Z95.2 Presence of prosthetic heart valve
CPT/HCPCS: 93306; Q9957; A4216; C8929

== ENCOUNTER 2020-06-21 11:38 | Outpatient (RCR) | payer MEDICARE, SELFPAY ==
[2020-05-12 09:06] VITALS: BMI 37.7
[2020-06-21 12:11] LABS: International Normalized Ratio 3.2; Prothrombin Time (Protime)PT. 32.8 SECONDS (11.7-14.9)
== END 2020-06-21 18:00 | disposition home or self-care (01) ==
LOC: LAB 11:38
PROVIDERS: Family Provider Preventive Medicine Occupational Medicine; PCP Preventive Medicine Occupational Medicine; Referring Provider Internal Medicine Cardiovascular Disease; Visit Provider Internal Medicine Cardiovascular Disease
DX: Z95.2 Presence of prosthetic heart valve (principal); Z79.01 Long term (current) use of anticoagulants
CPT/HCPCS: 36415; 85610

== ENCOUNTER → 2020-08-25 10:16 | Outpatient (CLI) | payer MEDICARE, SELFPAY ==
[2020-05-12 09:06] VITALS: BMI 37.7
== END ==
PROVIDERS: PCP Preventive Medicine Occupational Medicine; Referring Provider Internal Medicine Gastroenterology; Visit Provider Internal Medicine Gastroenterology
DX: Z20.828 Contact with and (suspected) exposure to other viral communicable diseases (principal); Z11.59 Encounter for screening for other viral diseases
CPT/HCPCS: 87635; C9803; U0003

== ENCOUNTER 2020-09-01 09:48 | Outpatient (RCR) | payer MEDICARE, SELFPAY ==
[2020-05-12 09:06] VITALS: BMI 37.7
[2020-09-01 10:19] LABS: International Normalized Ratio 2.6; Prothrombin Time (Protime)PT. 27.4 SECONDS (11.7-14.9)
== END 2020-09-01 18:00 | disposition home or self-care (01) ==
LOC: LAB 09:48
PROVIDERS: Specialist; Family Provider Preventive Medicine Occupational Medicine; PCP Preventive Medicine Occupational Medicine; Referring Provider Internal Medicine Cardiovascular Disease; Visit Provider Internal Medicine Cardiovascular Disease
DX: Z95.2 Presence of prosthetic heart valve (principal); Z79.01 Long term (current) use of anticoagulants
CPT/HCPCS: 36415; 85610

== ENCOUNTER 2020-09-21 10:47 | Outpatient (RCR) | payer MEDICARE, SELFPAY ==
[2020-09-07 10:23] LABS: International Normalized Ratio 2.4; Prothrombin Time (Protime)PT. 25.9 SECONDS (11.7-14.9)
[2020-09-21 11:27] LABS: International Normalized Ratio 2.7; Prothrombin Time (Protime)PT. 27.9 SECONDS (11.7-14.9)
== END 2020-09-21 18:00 | disposition home or self-care (01) ==
LOC: LAB 10:47
PROVIDERS: Family Provider Preventive Medicine Occupational Medicine; PCP Preventive Medicine Occupational Medicine; Referring Provider Specialist; Visit Provider Specialist
DX: Z95.2 Presence of prosthetic heart valve (principal); Z79.01 Long term (current) use of anticoagulants
CPT/HCPCS: 36415; 85610

== ENCOUNTER 2020-10-19 09:56 | Day surgery (SDC) | payer MEDICARE, SELFPAY ==
[2020-10-19] VITALS (8 sets, daily range): BP systolic 99–155; BP diastolic 64–88; PULSE 101–117; RESP 16–20; TEMP 36.2–36.5; O2SAT 94–96; BMI 38.1
--- NOTE | 2020-10-19 10:09 | ED.VISSUMM ---
- ER Visit Summary Date of Service: 10/19/20 Chief Complaint: Esophageal food bolus History of Present Illness: The patient is a 64 M who presents with a pork chop stuck in his throat that began this morning. Patient states he did not think he chewed it well enough and it became lodged in his upper throat. Patient states he has been unable to swallow since this time. Patient states nothing seems to help it. Patient admits to a cough and some shortness of breath. Patient denies any chest pain. Patient denies any nausea or vomiting. Patient denies any fevers or chills. Physical Examination: Vital signs are stable except for mild tachycardia of 114 and a mild tachypnea of 20. Patient is afebrile. Patient is in no acute distress. Oral mucosa is pink and moist. Neck is supple. Trachea is midline. There is no JVD noted. Heart was regular rate and rhythm. Lungs are clear and equal bilaterally. Abdomen is soft. Bowel sounds are normal. There is no tenderness. There is no rebound or guarding noted. Skin is warm dry. Cranial nerves II through XII are intact. There are no focal motor or sensory deficits noted. Extremities are intact. There is no calf tenderness or edema. Test Results: Portable 1 view chest x-ray was obtained. On my interpretation, lung vera show chronic changes. There is normal cardiac silhouette. Bony thorax is normal. There is no acute process noted. Radiologist also interpreted the x-ray and agrees. Emergency Department Course and Treatment: Patient was given a dose of glucagon here. Patient had no improvement with this. Case was discussed with Dr. Dorman. He will take the patient to endoscopy. Patient understood and was agreeable with the plan. All questions were answered. Disposition: Discharged to endoscopy Impression: 1. Esophageal food impaction This note was generated with [employer] dictation software. It may contain incorrect words, spelling, and punctuation that were not noted in review of the chart prior to signing ED Disposition - Plan for ED Patient: Disposition: Acute Care Hospital [facility] Diagnosis: Esophageal obstruction due to food impaction Referrals: Bartolo Mitchell DO [Primary Care Provider] -
--- NOTE | 2020-10-19 10:25 | RAD_ITS ---
STUDY: X-RAY CHEST REASON FOR EXAM: Male, 64 years old. Pt. choked on a pork chop, feels like still in Esophagus TECHNIQUE: Single AP portable view of the chest. COMPARISON: Comparison is made with prior examination dated 12/02/2019. FINDINGS: EKG electrodes are seen. Hyperinflation. Stable mild increased markings at the left lung base suggestive scarring. There is no demonstrated pleural abnormality. Sternal cerclage wires and vascular clips are present from a prior sternotomy and coronary artery bypass graft procedure (CABG). A loop recording device is once again seen in the left axillary region. Normal mediastinum and damian. Normal visualized pulmonary arteries. There is atherosclerotic calcification of the aortic arch with tortuosity. There are degenerative changes of the visualized thoracic spine. Normal visualized ribs, clavicles, and shoulders. There is no demonstrated abnormality of the visualized soft tissue structures of the upper abdomen. RAD/Chest 1 View (Portable) IMPRESSION: Hyperinflation. Stable mild increased markings at the left lung base suggestive of scarring. Electronically Signed: Floyd Lobato MD at 10:43 EST , Service support ,
[2020-10-19] MEDS: Glucagon 1 MG/ML Syringe IV (10:29)
--- NOTE | 2020-10-19 12:00 | EGD_PTH ---
PATIENT: PASHA DENISE LOC: EN U#:[id number] AGE/SX: 64/M ROOM: RE10/19/[address]: Dr. Cosme Dorman MD : 1955 BED: DIS: 10/19/2020 SPEC #: [id number] RECD: 10/19/20 12:33 STATUS: MAURICIO COREEN #: [id number] DORIE: 10/19/20 12:[address]: Cosme Dorman DEPT: SURGICAL PATHOLOGY RECD BY: Nahomi Alba ENTERED: 10/19/20 12:55 SP TYPE: EGD BIOPSY OTHR DR: Dr. Bartolo Mitchell DO Tissues: Esophagus, NOS Procedures: Special Stain Group I Surgery Specimen Level IV GMS Stain (control) HEADER OPERATION: EGD (MAC), removal foreign body PRE-OP DIAGNOSIS: Foreign body TISSUE SUBMITTED: Mid esophagus biopsy MICROSCOPIC DIAGNOSIS Mid esophagus, biopsy: Fragments of squamous epithelium with acute inflammation. See comment. SJ:evon 10/20/2020 COMMENT Special stain for fungi is negative for organisms; matched control is appropriate. MICROSCOPIC DESCRIPTION Slides are reviewed. GROSS DESCRIPTION Received in fixative is one container labeled with the patient's name and designated mid esophagus biopsy. The specimen consists of multiple irregular fragments of light maldonado soft tissue that in aggregate measure 1 x 0.3 x 0.1 cm. The specimen is totally submitted in one cassette. / AM:evon 10/19/20 TC:2 CPT: 65809, 67956
--- NOTE | 2020-10-19 12:23 | OP.EGD_ITS ---
Patient Name: Fady Matos Procedure Date: 10/19/2020 11:42 AM Date of : 1955 Age: 64 Procedure: Upper GI endoscopy Indications: Foreign body in the esophagus Providers: Cosme Dorman MD Medicines: Monitored Anesthesia Care Patient Profile: This is a 64 year old male. Refer to note in patient chart for documentation of history and physical. Complications: No immediate complications. Estimated blood loss: Minimal. Procedure: Pre-Anesthesia Assessment: - Prior to the procedure, a History and Physical was performed, and patient medications and allergies were reviewed. The patient's tolerance of previous anesthesia was also reviewed. The risks and benefits of the procedure and the sedation options and risks were discussed with the patient. All questions were answered, and informed consent was obtained. Prior Anticoagulants: The patient has taken Plavix (clopidogrel), last dose was day of procedure. After reviewing the risks and benefits, the patient was deemed in satisfactory condition to undergo the procedure. After obtaining informed consent, the endoscope was passed under direct vision. Throughout the procedure, the patient's blood pressure, pulse, and oxygen saturations were monitored continuously. The gastroscope was introduced through the mouth, and advanced to the second part of duodenum. The upper GI endoscopy was accomplished without difficulty. The patient tolerated the procedure well. Scope In: 12:15:17 PM Scope Out: 12:19:53 PM Total Procedure Duration Time 0 hours 4 minutes 36 seconds Findings: One stenosis was found in the upper third of the esophagus. The food bolus was advanced into the stomach. This stenosis was moderately severe. The stenosis was traversed. Biopsies were taken with a cold forceps for histology. Food was found in the upper third of the esophagus. Advancement of food into stomach was accomplished. Impression: - Esophageal stenosis. Biopsied. Recommendation: - Discharge patient to home. - Resume previous diet. - Continue present medications. - Await pathology results. Procedure Code(s): --- Professional --- 59323, Esophagogastroduodenoscopy, flexible, transoral; with removal of foreign body(s) 39938, Esophagogastroduodenoscopy, flexible, transoral; with biopsy, single or multiple Diagnosis Code(s): --- Professional --- K22.2, Esophageal obstruction T18.108A, Unspecified foreign body in esophagus causing other injury, initial encounter CPT copyright 2017 [employer]. All rights reserved. The codes documented in this report are preliminary and upon embedded software design engineer review may be revised to meet current compliance requirements. Cosme Dorman MD 10/19/2020 12:23:25 PM This report has been signed electronically. Number of Addenda: 0 Note Initiated On: 10/19/2020 11:42 AM
--- NOTE | 2020-10-19 12:24 | OP.CCLET_ITS ---
10/19/2020 Bartolo Mitchell [address] [place] [address] Re : Upper GI endoscopy procedure for Fady Matos Dear Dr. Mitchell This procedure was performed on Monday, October 19, 2020. My impressions and recommendations are as follows: Impressions : - Esophageal stenosis. Biopsied. Recommendations : - Discharge patient to home. - Resume previous diet. - Continue present medications. - Await pathology results. My findings are described in the full procedure note, which is enclosed. If I can be of further assistance, please feel free to contact me at Doctor phone number(s): , Work: . Sincerely, Cosme Dorman MD 10/19/2020 12:23:25 PM This report has been signed electronically.
--- NOTE | 2020-10-19 12:24 | PCM.HP.STD ---
Problem List (1) Esophageal obstruction due to food impaction Status: Acute History of Present Illness Date of Admission: 10/19/20 The patient is a 64 year old M who presented after eating pork chops this morning. He says he feels that they are stuck in his chest and he is not able to swallow any liquids or solids. This has happened to him in the past. He is on a PPI. He reports that he had an EGD in the past which did not show anything. Past Medical History Past Medical History (Chronic Problems): Chronic Problems (Last Reviewed 04/28/20 @ 09:07 by Lilliam Denney BOILER HOUSE INSPECTOR, BOILER HOUSE INSPECTOR-C) Hyperlipidemia (Chronic) Asthma (Chronic) CVA (cerebral vascular accident) (Chronic) GERD (gastroesophageal reflux disease) (Chronic) Bipolar 1 disorder (Chronic) Depression (Chronic) Lumbar disc disease (Chronic) Peptic ulcer disease (Chronic) Status post placement of implantable loop recorder (Chronic ~2004) Dementia (Chronic) Obesity (BMI 30-39.9) (Chronic) Stage 1 mild COPD by GOLD classification (Chronic) Lung nodule (Chronic) Repeat CT of the chest due September 12, 2019 JAMES (obstructive sleep apnea) (Chronic) AHI 16.7 - noncompliant Nonrheumatic aortic (valve) stenosis with insufficiency (Chronic) Atherosclerosis of coronary artery of [place] heart without angina pectoris (Chronic) CABG MEDINA-LAD, SVG-D1, SVG-OM1, SVG-PDA 01/2003 POBA-Anastomosis site of the MEDINA-LAD 06/16/2004 [facility] [id number]-[id number] 03/2005 [id number] 07/15/2012 @ [facility] History of coronary artery stent placement (Chronic) POBA-Anastomosis site of the MEDINA-LAD 06/16/2004 [facility] PQZ-SHW-Swr-RCA 03/2005 @ [facility] [id number] 07/15/2012 @ [facility] Presence of aortocoronary bypass graft (Chronic ~01/2003) MEDINA-LAD, SVG-D1, SVG-OM1, SVG-PDA 01/2003 @ [facility] H/O aortic valve replacement (Chronic ~09/2004) Mechanical, on Coumadin therapy 09/2004 [facility] Valve @ [facility] Hypertension (Chronic) Medical History: Medical History (Last Reviewed 04/28/20 @ 09:07 by Lilliam Denney BOILER HOUSE INSPECTOR, BOILER HOUSE INSPECTOR-C) Hyperlipidemia (Chronic) E78.5 CVA (cerebral vascular accident) (Chronic) I63.9 GERD (gastroesophageal reflux disease) (Chronic) K21.9 Bipolar 1 disorder (Chronic) F31.9 Depression (Chronic) F32.9 Lumbar disc disease (Chronic) M51.9 Peptic ulcer disease (Chronic) K27.9 Status post placement of implantable loop recorder (Chronic) Onset Date: ~2004 Z95.818 Nonrheumatic aortic (valve) stenosis with insufficiency (Chronic) I35.2 Atherosclerosis of coronary artery of [place] heart without angina pectoris (Chronic) I25.10 CABG MEDINA-LAD, SVG-D1, SVG-OM1, SVG-PDA 01/2003 POBA-Anastomosis site of the MEDINA-LAD 06/16/2004 [facility] [id number]-[id number] 03/2005 [id number] 07/15/2012 @ [facility] Hypertension (Chronic) I10 Non-ST elevation (NSTEMI) myocardial infarction (Inactive) I21.4 Allergies iodine Allergy (Verified 10/19/20 09:57) Other low BP- does fine with premedication contrast dye Allergy (Uncoded 10/19/20 09:57) Shortness of breath Home Medications: Ambulatory Orders Medication Instructions Recorded Benztropine [Cogentin] 0.5 mg PO TID 10/20/15 Clopidogrel Bisulfate [Plavix] 75 mg PO DAILY 10/20/15 Risperidone [Risperdal] 4 mg PO BID 10/20/15 Pantoprazole Sodium [Protonix] 40 mg PO BID 02/01/17 Tamsulosin HCl [Flomax] 0.4 mg PO QHS 02/01/17 buspirone 10 mg tablet 15 mg PO TID 09/12/18 cetirizine 10 mg tablet 10 mg PO DAILY 09/12/18 naltrexone 50 mg tablet 50 mg PO DAILY 09/12/18 potassium chloride 10 mEq 10 meq PO DAILY 09/12/18 capsule,extended release acapella See Rx Instructions .ROUTE 09/16/18 .MEDSUPPLY #1 ea metoprolol tartrate 25 mg tablet 12.5 mg PO BID #30 tab 09/17/18 Donepezil HCl 10 mg PO QHS 10/03/18 Guaifenesin [Mucinex] 1,200 mg PO BID #20 tab 11/17/18 Warfarin Sodium [Coumadin] 6 mg PO TUWETH 12/02/19 montelukast 10 mg tablet 10 mg PO QPM #30 tab 03/15/20 budesonide-formoterol HFA 160 2 puff INHALATION BID #1 ea 03/31/20 mcg-4.5 mcg/actuation aerosol inhaler benralizumab 30 mg/mL subcutaneous 30 mg SC Q8W #1 ml 04/09/20 syringe bupropion HCl 300 mg 24 hr tablet, 300 mg PO QAM 04/19/20 extended release fluoxetine 40 mg capsule 40 mg PO DAILY 04/19/20 warfarin 5 mg tablet 7.5 mg PO SUMOFRSA 90 Days #90 tab 07/08/20 furosemide 40 mg tablet 40 mg PO DAILY #90 tab 09/23/20 albuterol sulfate 2.5 mg INHALATION Q4H PRN #180 ml 10/11/20 Surgical History: Surgical History (Last Reviewed 04/28/20 @ 09:07 by Lilliam Denney BOILER HOUSE INSPECTOR, BOILER HOUSE INSPECTOR-C) History of coronary artery stent placement (Chronic) Z95.5 POBA-Anastomosis site of the MEDINA-LAD 06/16/2004 [facility] SHX-WPS-Ycz-RCA 03/2005 @ [facility] [id number]-D1 07/15/2012 @ [facility] Presence of aortocoronary bypass graft (Chronic) Onset Date: ~01/2003 Z95.1 MEDINA-LAD, SVG-D1, SVG-OM1, SVG-PDA 01/2003 @ [facility] H/O aortic valve replacement (Chronic) Onset Date: ~09/2004 Z95.2 Mechanical, on Coumadin therapy 09/2004 [facility] Valve @ [facility] Abdominal Aortagram (Inactive) Onset Date: ~08/18/13 [facility] by Dr Siegel History of appendectomy (Inactive) Z98.890, Z90.49 History of lumbar spinal fusion (Inactive) Onset Date: ~06/29/14 Z98.1 History of repair of right rotator cuff (Inactive) Z98.890 Surgical History: angioplasty, appendectomy, cholecystectomy, coronary bypass surgery, tonsillectomy, - - mechanical aortic valve replacement Psychiatric History: Bipolar Smoking Status: Former smoker - *Family History Maternal Family History: Family History (Last Reviewed 04/28/20 @ 09:07 by Lilliam Denney BOILER HOUSE INSPECTOR, BOILER HOUSE INSPECTOR-C) Father CAD (coronary artery disease) Mother CAD (coronary artery disease) Sister CAD (coronary artery disease) CVA (cerebral vascular accident) History Items: No pertinent history Paternal Family History: Family History (Last Reviewed 04/28/20 @ 09:07 by Lilliam Denney BOILER HOUSE INSPECTOR, BOILER HOUSE INSPECTOR-C) Father CAD (coronary artery disease) Mother CAD (coronary artery disease) Sister CAD (coronary artery disease) CVA (cerebral vascular accident) History Items: Heart Disease, - - myocardial infarction Sibling Family History: Family History (Last Reviewed 04/28/20 @ 09:07 by Lilliam Denney BOILER HOUSE INSPECTOR, BOILER HOUSE INSPECTOR-C) Father CAD (coronary artery disease) Mother CAD (coronary artery disease) Sister CAD (coronary artery disease) CVA (cerebral vascular accident) History Items: No pertinent history Review of Systems Constitutional: Denies: Anorexia, Fever HEENT: Reports: Difficulty Swallowing Cardiovascular: Denies: Chest Pain Respiratory: Denies: Cough Gastrointestinal: Denies: Abdominal Pain, Constipation Genitourinary: Denies: Dysuria Skin: Denies: Jaundice Hematologic/ Lymphatic: Denies: Anemia VTE Information - Inpt Only VTE Present on Admission: No Patient Problems: Active and Suspected Problems (Last Reviewed 04/28/20 @ 09:07 by Lilliam Denney BOILER HOUSE INSPECTOR, BOILER HOUSE INSPECTOR-C) Esophageal obstruction due to food impaction (Acute) - Physical Exam Vitals/I&O's: Vital Signs Temp Pulse Resp BP Pulse Ox 97.2 F L 114 H 20 H 155/88 H 95 10/19/20 09:57 10/19/20 09:59 10/19/20 09:59 10/19/20 09:57 10/19/20 09:57 Oxygen Delivery Method Room Air Weight: 289 lb 0.416 oz Body Mass Index (BMI) 38.1 General: Alert, Oriented x3 Lungs: Normal air movement Cardiovascular: Regular rate, Regular Rhythm Abdomen: Soft, Non Tender, Non-Distended Assessment/Plan All Active Problems (Last Reviewed 04/28/20 @ 09:07 by Lilliam Denney NP, BOILER HOUSE INSPECTOR-C) Esophageal obstruction due to food impaction (Acute) Acute respiratory failure with hypoxia (Acute) Community acquired pneumonia (Acute) Asthma exacerbation (Acute) 64-year-old male with esophageal food impaction 1. I discussed EGD with the patient and I discussed the risks of bleeding, infection, perforation of the esophagus. I explained that he was at increased risk as he is on Plavix and Coumadin. The patient agreed to the risks and was willing to proceed. 2. I performed an EGD in the endoscopy suite. The food bolus was able to be pushed into the stomach without trauma. The patient had a stenosis in the upper third of his esophagus. I did perform biopsies of this area. I would like to perform an outpatient EGD to confirm that this area has healed or to take more biopsies off of his blood thinners. I advised him to follow-up with me for future EGD. At this time I recommend the patient stay on soft foods for 2 days and then advance to regular diet. Patient will be discharged home from PACU. Csome Dorman MD Pager: [facility] [address] [place] [address], [address] [place] [address] Office:
== END 2020-10-19 13:01 | disposition home or self-care (01) ==
LOC: ED 11:38 → EN 11:43 → ACINP 11:44
PROVIDERS: Emergency Provider Emergency Medicine; PCP Preventive Medicine Occupational Medicine; Referring Provider Surgery; Visit Provider Surgery
PROC: 0DJ08ZZ Inspection of Upper Intestinal Tract, Via Natural or Artificial Opening Endoscopic (ICD-10-PCS; CPT 43235; principal; 2020-10-19 11:55)
DX: K22.2 Esophageal obstruction (principal); T18.128A Food in esophagus causing other injury, initial encounter; X58.XXXA Exposure to other specified factors, initial encounter; Y93.9 Activity, unspecified; Y92.9 Unspecified place or not applicable; Y99.9 Unspecified external cause status; I25.10 Atherosclerotic heart disease of native coronary artery without angina pectoris; J44.9 Chronic obstructive pulmonary disease, unspecified; I10 Essential (primary) hypertension; E78.5 Hyperlipidemia, unspecified; M06.9 Rheumatoid arthritis, unspecified; G47.33 Obstructive sleep apnea (adult) (pediatric); K21.9 Gastro-esophageal reflux disease without esophagitis; F31.9 Bipolar disorder, unspecified; F41.9 Anxiety disorder, unspecified; F03.90 Unspecified dementia, unspecified severity, without behavioral disturbance, psychotic disturbance, mood disturbance, and anxiety; I25.2 Old myocardial infarction; Z79.01 Long term (current) use of anticoagulants; Z79.02 Long term (current) use of antithrombotics/antiplatelets; Z79.899 Other long term (current) drug therapy; Z86.73 Personal history of transient ischemic attack (TIA), and cerebral infarction without residual deficits; Z87.891 Personal history of nicotine dependence; Z95.5 Presence of coronary angioplasty implant and graft; Z95.1 Presence of aortocoronary bypass graft; Z95.2 Presence of prosthetic heart valve
CPT/HCPCS: 43239; 43247; 71045; 88305; 88312; 99282; J7120; A4216; J1610; J2405

== ENCOUNTER 2020-10-27 10:32 | Outpatient (RCR) | payer MEDICARE, SELFPAY ==
[2020-10-26 12:55] VITALS: BMI 36.4
[2020-10-26 14:43] LABS: Absolute Lymphocyte Count 1.74 X10^3/uL (0.83-4.51); Absolute Neutrophil Count 5.7 X10^3/uL (2.0-7.7); Basophil# 0.01 X10^3/uL; Basophil% 0.1 % (0-1); Hematocrit 43.4 % (40-54); Hemoglobin 14.1 g/dL (13.0-16.5); Lymphocyte # 1.74 X10^3/ul (4.0); Mean Corp Hgb Conc 32.5 g/dL (32-36); Mean Corpuscular Volume 95.4 fL (80-94); Mean Platelet Vol. 9.1 fl (6.2-12.0); Monocyte# 0.83 X10^3/uL; NRBC Flagged by Analyzer 0 % (0-5); Neutrophil # 5.67 X10^3/uL (2.7-7.7); Neutrophil % 68.4 % (47-70); Platelet Count 278 K/mm3 (150-450); RBC Distribution Width CV 13.4 % (11.6-14.6); RBC Distribution Width SD 47.5 fl (35.1-43.9); Red Blood Count 4.55 M/mm3 (4.6-6.2); White Blood Count 8.3 K/mm3 (4.4-11.0)
[2020-10-26 15:05] LABS: Anion Gap 4 (5-15); BNP,B-Type NATRIURETIC PEPTIDE 48.6 pg/mL (0-100); BUN 7 mg/dL (7-18); BUN/Creat Ratio 6.7 RATIO (10-20); Calcium,Total 8.5 mg/dL (8.5-10.1); Chloride 104 mmol/L (98-107); Creatinine, Serum 1.04 mg/dL (0.70-1.30); EST Glomerular Filtration Rate 77 mL/min (>60); Est Glom Filt Rate - Afr Amer 93 mL/min (>60); Glucose 68 mg/dL (74-106); Potassium 3.9 mmol/L (3.5-5.1); Sodium Level 139 mmol/L (136-145)
[2020-10-27 11:01] LABS: International Normalized Ratio 2.7; Prothrombin Time (Protime)PT. 27.9 SECONDS (11.7-14.9)
== END 2020-10-27 18:00 | disposition home or self-care (01) ==
LOC: LAB 10:32
PROVIDERS: Nurse Practitioner Family; Family Provider Preventive Medicine Occupational Medicine; PCP Preventive Medicine Occupational Medicine; Referring Provider Specialist; Visit Provider Specialist
DX: R06.00 Dyspnea, unspecified (principal); Z95.2 Presence of prosthetic heart valve; Z79.01 Long term (current) use of anticoagulants; R42 Dizziness and giddiness
CPT/HCPCS: 36415; 80048; 83880; 85025; 85610

== ENCOUNTER → 2020-11-03 13:04 | Outpatient (CLI) | payer MEDICARE, SELFPAY ==
[2020-10-26 12:55] VITALS: BMI 36.4
[2020-10-27 09:49] VITALS: BMI 36.3
--- NOTE | 2020-11-03 13:06 | CDU_ITS ---
Reason For Study: DIZZINESS Rt. Velocities/BP Lt. Velocities/BP Prox CCA 81.6/11.2 cm/sec. Prox CCA 113.7/27.8 cm/sec. Mid CCA 72.5/17.7 cm/sec. Mid CCA 69.9/15.8 cm/sec. Dist CCA 55.9/18.1 cm/sec. Dist CCA 74.8/18.3 cm/sec. Prox ICA 45.7/12.5 cm/sec. Prox ICA 73.6/15.8 cm/sec. Mid ICA 70.2/16.2 cm/sec. Mid ICA 71.1/23.2 cm/sec. Dist ICA 80.9/23.2 cm/sec. Dist ICA 89.5/33.0 cm/sec. Rt. ICA/CCA = 80.9/81.6=1.0. Lt. ICA/CCA = 89.5/113.7=0.8. Prox ECA 83.3/18.2 cm/sec. Prox ECA 88.3/17.1 cm/sec. Rt. Vert. 57.8/18.2 cm/sec. Lt. Vert. 41.6/10.9 cm/sec. Right Extracranial There is intimal thickening but no significant atherosclerotic plaque noted in the right common carotid artery. There is homogeneous, smooth atherosclerotic plaque noted in the right internal carotid artery. There is heterogeneous, irregular atherosclerotic plaque noted in the right external carotid artery. Antegrade flow is noted in the right vertebral artery. Left Extracranial There is intimal thickening but no significant atherosclerotic plaque noted in the left common carotid artery. There is heterogeneous, irregular atherosclerotic plaque noted in the left internal carotid artery. There is heterogeneous, smooth atherosclerotic plaque noted in the left external carotid artery. Antegrade flow is noted in the left vertebral artery. There is heterogeneous, irregular atherosclerotic plaque noted in the left bulb. Procedure Carotid Duplex [id number]. Exam performed in department. Interpretation Summary Minimal smooth plaque at the proximal right internal carotid artery with some irregular plaque at the proximal right external carotid artery <50% stenosis right internal carotid <50% stenosis right external carotid Irregular calcific plaque with shadowing left carotid bulb and proximal internal and external carotid arteries <50% stenosis left internal carotid <50% stenosis left external carotid Patent and antegrade vertebrals bilaterally Ordering Physician: Conor Cagle Referring Physician: Bartolo Mitchell Performed By: Marah Tracy RDCS, RVT
== END ==
PROVIDERS: PCP Preventive Medicine Occupational Medicine; Referring Provider Nurse Practitioner Family; Visit Provider Nurse Practitioner Family
DX: I65.22 Occlusion and stenosis of left carotid artery (principal); R42 Dizziness and giddiness; I25.10 Atherosclerotic heart disease of native coronary artery without angina pectoris
CPT/HCPCS: 93880

== ENCOUNTER 2020-11-05 08:32 | Day surgery (SDC) | payer MEDICARE, SELFPAY ==
[2020-10-27 09:49] VITALS: BMI 36.3
[2020-11-05] VITALS (8 sets, daily range): BP systolic 109–139; BP diastolic 71–95; PULSE 57–68; RESP 20–22; TEMP 36.1–36.3; O2SAT 93–99; BMI 37.7
--- NOTE | 2020-11-05 06:52 | HP_ITS ---
Intake Intake Visit Reasons: F/U RESULTS Chief Complaint: post FB removal Powder Worker Required: No Is patient in pain?: No Allergies iodine Allergy (Verified 10/26/20 14:10) Other contrast dye Allergy (Uncoded 10/19/20 09:57) Shortness of breath Subjective Details: Patient reports no issues since his EGD with food. He says that he had an EGD back in August and biopsies were performed as well. Patient still says he is having dysphagia and problems occasionally. Objective Details: Normal physical exam. Patient is slightly short of breath. Abdomen is soft and nontender. Assessment & Plan Problems 1. Dysphagia R13.10 Plan Patient has esophageal dysphagia. He had food impacted in his esophagus last week and I performed a bedside EGD and advance the food and perform biopsies. It was in his mid esophagus. The biopsies came back as acute inflammation. There was no malignancy. I would like to repeat an EGD without the inflammation to see what his esophagus appears like and possibly mechanically dilate. I explained endoscopy in detail to the patient. I explained the risks including but not limited to stroke or heart attack with anesthesia, perforation of the GI tract, bleeding, infection. I explained that any of these could necessitate further emergency surgery. The patient understands and all questions were answered sufficiently. The patient wishes to proceed with procedure. The patient also reports that the medicine he is on is not helping very well for his GERD. I will change his Protonix to Nexium to see if this helps. Cosme Dorman MD Pager: [facility] [address] [place] [address], [address] [place] [address] Office: Orders Orders: EGD Today R13.10 Medications New: esomeprazole magnesium (Nexium 24HR) 20 mg PO DAILY 60 tabs 0RF Coding Level of Care Code Off vis,est,level 3 Diagnoses Dysphagia R13.10 I have re-examined the patient. There are no clinical changes since date of exam.
[2020-11-05] MEDS: Lactated Ringers 1,000 ML 100 ML IV (09:25)
[2020-11-05 12:41] LABS: Prothrombin Time Fingerstick 50.9 SEC (11.9-14.4)
== END 2020-11-05 10:57 | disposition home or self-care (01) ==
LOC: EN 08:33 → AC 08:33
PROVIDERS: PCP Preventive Medicine Occupational Medicine; Referring Provider Preventive Medicine Occupational Medicine; Visit Provider Surgery
PROC: 0DJ08ZZ Inspection of Upper Intestinal Tract, Via Natural or Artificial Opening Endoscopic (ICD-10-PCS; CPT 43235; principal; 2020-11-05 09:40)
DX: R13.10 Dysphagia, unspecified (principal); K21.9 Gastro-esophageal reflux disease without esophagitis; I10 Essential (primary) hypertension; J44.9 Chronic obstructive pulmonary disease, unspecified; F41.9 Anxiety disorder, unspecified; F32.9 Major depressive disorder, single episode, unspecified; Z87.891 Personal history of nicotine dependence; Z86.73 Personal history of transient ischemic attack (TIA), and cerebral infarction without residual deficits; Z79.899 Other long term (current) drug therapy; Z79.01 Long term (current) use of anticoagulants; Z79.51 Long term (current) use of inhaled steroids; Z20.822 Contact with and (suspected) exposure to COVID-19; Z79.02 Long term (current) use of antithrombotics/antiplatelets
CPT/HCPCS: 43235; 36416; 85610; 87426; 94640; C9803; J7120; J2405

== ENCOUNTER 2020-11-12 10:24 | Outpatient (RCR) | payer MEDICARE, SELFPAY ==
[2020-11-05 08:58] VITALS: BMI 37.7
[2020-11-12] MEDS: COVID-19 VACC, MRNA(PFIZER)/PF 30 MCG/0.3 ML SYRINGE IM (15:54)
[2020-12-03] MEDS: COVID-19 VACC, MRNA(PFIZER)/PF 30 MCG/0.3 ML SYRINGE IM (15:29)
== END 2021-02-08 23:59 ==
LOC: IMMUN 10:24
PROVIDERS: PCP Preventive Medicine Occupational Medicine; Visit Provider Family Medicine
DX: Z23 Encounter for immunization (principal)
CPT/HCPCS: 0001A; 0002A; 91300

== ENCOUNTER 2020-11-15 14:14 | Outpatient (RCR) | payer MEDICARE, SELFPAY ==
[2020-10-27 09:49] VITALS: BMI 36.3
[2020-11-05 08:58] VITALS: BMI 37.7
[2020-11-08 14:38] LABS: International Normalized Ratio 1.7; Prothrombin Time (Protime)PT. 19.8 SECONDS (11.7-14.9)
[2020-11-15 14:52] LABS: International Normalized Ratio 2.2
[2020-11-15 15:16] LABS: AST(SGOT) 28 U/L (15-37); Alanine Aminotransfer ALT/SGPT 33 U/L (16-61); Albumin, Serum 3.5 g/dL (3.2-5.0); Alkaline Phosphatase 146 U/L (45-117); Bilirubin, Direct 0.15 mg/dL (0.00-0.30); Cholesterol 141 mg/dL (200); Globulin 4.2 g/dL (2.2-4.2); High Density Lipoprotein 44 mg/dL; Protein, Total 7.7 g/dL (6.4-8.2); Triglycerides 151 mg/dL; Very Low Density Lipoprotein 30 mg/dL (5-40)
== END 2020-11-15 18:00 | disposition home or self-care (01) ==
LOC: LAB 14:14
PROVIDERS: Internal Medicine Cardiovascular Disease; Family Provider Preventive Medicine Occupational Medicine; PCP Preventive Medicine Occupational Medicine; Referring Provider Specialist; Visit Provider Specialist
DX: Z79.01 Long term (current) use of anticoagulants (principal); R06.00 Dyspnea, unspecified; R42 Dizziness and giddiness; I10 Essential (primary) hypertension; Z95.2 Presence of prosthetic heart valve; Z95.5 Presence of coronary angioplasty implant and graft
CPT/HCPCS: 36415; 80061; 80076; 85610

== ENCOUNTER 2020-12-27 11:56 | Outpatient (RCR) | payer MEDICARE, SELFPAY ==
[2020-11-05 08:58] VITALS: BMI 37.7
[2020-12-27 12:50] LABS: International Normalized Ratio 3.1; Prothrombin Time (Protime)PT. 31.4 SECONDS (11.7-14.9)
== END 2020-12-27 18:00 | disposition home or self-care (01) ==
LOC: LAB 11:56
PROVIDERS: Family Provider Preventive Medicine Occupational Medicine; PCP Preventive Medicine Occupational Medicine; Referring Provider Specialist; Visit Provider Specialist
DX: Z95.2 Presence of prosthetic heart valve (principal); Z79.01 Long term (current) use of anticoagulants
CPT/HCPCS: 36415; 85610

== ENCOUNTER 2021-01-28 11:06 | Outpatient (RCR) | payer MEDICARE, SELFPAY ==
[2021-01-01 04:01] VITALS: BMI 38.1
[2021-01-24 07:54] VITALS: BMI 34.7
[2021-01-24 12:53] LABS: Prothrombin Time (Protime)PT. 44.4 SECONDS (11.7-14.9)
[2021-01-24 12:57] LABS: International Normalized Ratio 4.8
[2021-01-28 11:36] LABS: International Normalized Ratio 1.5; Prothrombin Time (Protime)PT. 17.3 SECONDS (11.7-14.9)
== END 2021-01-28 18:00 | disposition home or self-care (01) ==
LOC: LAB 11:06
PROVIDERS: Family Provider Preventive Medicine Occupational Medicine; PCP Preventive Medicine Occupational Medicine; Referring Provider Specialist; Visit Provider Specialist
DX: Z95.2 Presence of prosthetic heart valve (principal); Z79.01 Long term (current) use of anticoagulants
CPT/HCPCS: 36415; 85610

== ENCOUNTER 2021-02-21 10:58 | Outpatient (RCR) | payer MEDICARE, SELFPAY ==
[2021-01-24 07:54] VITALS: BMI 34.7
[2021-02-11 12:39] LABS: International Normalized Ratio 1.9; Prothrombin Time (Protime)PT. 21.1 SECONDS (11.7-14.9)
[2021-02-21 11:44] LABS: International Normalized Ratio 3.3; Prothrombin Time (Protime)PT. 32.9 SECONDS (11.7-14.9)
== END 2021-02-21 18:00 | disposition home or self-care (01) ==
LOC: LAB 10:58
PROVIDERS: Family Provider Preventive Medicine Occupational Medicine; PCP Preventive Medicine Occupational Medicine; Referring Provider Specialist; Visit Provider Specialist
DX: Z95.2 Presence of prosthetic heart valve (principal); Z79.01 Long term (current) use of anticoagulants
CPT/HCPCS: 36415; 85610

== ENCOUNTER 2021-03-15 11:37 | Outpatient (RCR) | payer MEDICARE, SELFPAY ==
[2021-02-16 09:07] VITALS: BMI 34.7
[2021-03-15 12:39] LABS: International Normalized Ratio 2.8; Prothrombin Time (Protime)PT. 28.7 SECONDS (11.7-14.9)
== END 2021-03-15 18:00 | disposition home or self-care (01) ==
LOC: LAB 11:37
PROVIDERS: Family Provider Preventive Medicine Occupational Medicine; PCP Preventive Medicine Occupational Medicine; Referring Provider Specialist; Visit Provider Specialist
DX: Z95.2 Presence of prosthetic heart valve (principal); Z79.01 Long term (current) use of anticoagulants
CPT/HCPCS: 36415; 85610

== ENCOUNTER → 2021-04-21 13:41 | Outpatient (CLI) | payer MEDICARE, SELFPAY ==
[2021-04-14 13:02] VITALS: BMI 34.7
--- NOTE | 2021-04-21 13:56 | ECHOCS_ITS ---
Reason For Study: AVR;SYNCOPE Procedure This was a 2D Doppler, Color Flow transthoracic echocardiogram. The study was technically difficult. Contrast injection was performed. Exam performed in department. Left Ventricle Normal LV size. Segmental dysfunction with preserved ejection fraction (see wall motion). The estimated ejection fraction is 55 %. Post operative septal motion. Diastolic function is indeterminate. Basal inferoseptal: Hypokinetic. Basal anteroseptal: Hypokinetic. Right Ventricle Normal RV size. Normal systolic function. Atria Normal left atrium. Normal right atrium. No doppler evidence for ASD. Mitral Valve There is no mitral annular calcification. Normal mitral valve. Trivial mitral valve insufficiency. Tricuspid Valve Normal tricuspid valve. Trivial tricuspid valve insufficiency. Unable to estimate RV systolic pressure/pulmonary artery pressure due to technically difficult study. Aortic Valve Mild aortic stenosis. The aortic valve is not well visualized, however, based upon the 2D echocardiographic images obtained there appears to be a stable mechanical aortic valve prosthesis in place. Pulmonic Valve The pulmonic valve is not well visualized. Great Vessels The aortic root is not well visualized. Pericardium/Pleural No pericardial effusion. Medication 22 gauge I.V. with prn adaptor inserted into left arm. Diluted definity 3.5ml given slow IV push to enhance endocardial definition. MMode/2D Measurements & Calculations LVIDd: 3.8 cm IVSd: 0.95 cm LVOT diam: 2.2 cm LVIDs: 2.8 cm LVPWd: 0.84 cm FS: 26.5 % LVOT area: 3.7 cm2 LAV(MOD-bp): 55.0 ml EDV(MOD-sp4): 150.0 ml EDV(MOD-sp2): 141.6 ml LAV(MOD-bp) Indexed: 22.7 ml/m2 ESV(MOD-sp4): 66.9 ml ESV(MOD-sp2): 66.3 ml LAV(MOD-sp2): 53.7 ml EF(MOD-sp4): 55.4 % EF(MOD-sp2): 53.2 % LAV(MOD-sp4): 47.1 ml SV(MOD-sp4): 83.1 ml SV(MOD-sp2): 75.3 ml LA A4 area: 19.5 cm2 LA dimension(2D): 3.9 cm RA A4 area: 19.5 cm2 Doppler Measurements & Calculations MV E max troy: 31.8 cm/sec Lat Peak E' Troy: 6.7 cm/sec Med Peak E' Troy: 3.4 cm/sec MV A max troy: 103.7 cm/sec E/E' lat: 4.7 E/E' med: 9.5 MV E/A: 0.31 MV V2 max: 112.7 cm/sec Ao V2 max: 159.5 cm/sec LV V1 max: 76.9 cm/sec MV max P.1 mmHg Ao max P.2 mmHg LV V1 max P.4 mmHg MV V2 mean: 64.3 cm/sec Ao V2 mean: 120.4 cm/sec LV V1 mean P.6 mmHg MV mean P.9 mmHg Ao mean P.2 mmHg LV V1 mean: 61.7 cm/sec MV V2 VTI: 26.4 cm Ao V2 VTI: 28.9 cm LV V1 VTI: 14.2 cm MVA(VTI): 2.0 cm2 JOCELYN(I,D): 1.8 cm2 JOCELYN(V,D): 1.8 cm2 SV(LVOT): 52.9 ml PA V2 max: 83.6 cm/sec ECHO/Echo Complete W/ Contrast Interpretation Summary The study was technically difficult. Contrast injection was performed. Segmental dysfunction with preserved ejection fraction (see wall motion). The estimated ejection fraction is 55 %. Post operative septal motion. Trivial mitral valve insufficiency. Trivial tricuspid valve insufficiency. The aortic valve is not well visualized, however, based upon the 2D echocardiog raphic images obtained there appears to be a stable mechanical aortic valve prosthesis in darleen ce. Mild aortic stenosis. Unable to estimate RV systolic pressure/pulmonary artery pressure due to techni samy difficult study. Diastolic function is indeterminate. Ordering Physician: Conor Cagle Referring Physician: ABDIRASHID RAND Performed By: April Pickens, MINI, RVT
[2021-04-21 14:09] LABS: Absolute Lymphocyte Count 1.52 X10^3/uL (0.83-4.51); Absolute Neutrophil Count 4.9 X10^3/uL (2.0-7.7); Basophil# 0.01 X10^3/uL; Basophil% 0.1 % (0-1); Hematocrit 45.4 % (40-54); Hemoglobin 14.7 g/dL (13.0-16.5); Lymphocyte # 1.52 X10^3/ul (0.83-4.51); Lymphocyte % 20.9 % (19-41); Mean Corp Hgb Conc 32.4 g/dL (32-36); Mean Corpuscular Hgb 31.3 pg (27.0-32.0); Mean Corpuscular Volume 96.8 fL (80-94); Mean Platelet Vol. 9.2 fl (6.2-12.0); Monocyte# 0.83 X10^3/uL; Monocyte% 11.4 % (0-10); NRBC Flagged by Analyzer 0 % (0-5); Neutrophil # 4.86 X10^3/uL (2.7-7.7); Platelet Count 270 K/mm3 (150-450); RBC Distribution Width CV 13.3 % (11.6-14.6); RBC Distribution Width SD 47.4 fl (35.1-43.9); Red Blood Count 4.69 M/mm3 (4.6-6.2); White Blood Count 7.3 K/mm3 (4.4-11.0)
[2021-04-21 14:32] LABS: BNP,B-Type NATRIURETIC PEPTIDE 52.6 pg/mL (0-100)
[2021-04-21 14:36] LABS: Anion Gap 6 (5-15); BUN 14 mg/dL (7-18); BUN/Creat Ratio 13.1 RATIO (10-20); Calcium,Total 8.8 mg/dL (8.5-10.1); Chloride 105 mmol/L (98-107); Creatinine, Serum 1.07 mg/dL (0.70-1.30); EST Glomerular Filtration Rate 74 mL/min (>60); Est Glom Filt Rate - Afr Amer 89 mL/min (>60); Glucose 104 mg/dL (74-106); Magnesium 2.2 mg/dL (1.6-2.6); Potassium 4.2 mmol/L (3.5-5.1); Sodium Level 137 mmol/L (136-145)
== END ==
LOC: CVS 13:43
PROVIDERS: PCP Preventive Medicine Occupational Medicine; Visit Provider Nurse Practitioner Family
DX: R06.00 Dyspnea, unspecified (principal); I25.10 Atherosclerotic heart disease of native coronary artery without angina pectoris; I10 Essential (primary) hypertension; E78.5 Hyperlipidemia, unspecified; Z95.1 Presence of aortocoronary bypass graft; Z95.2 Presence of prosthetic heart valve; Z95.5 Presence of coronary angioplasty implant and graft
CPT/HCPCS: 36415; 80048; 83735; 83880; 85025; 93306; Q9957; A4216; C8929; J3490

== ENCOUNTER 2021-08-15 00:01 | Inpatient (IN) | payer MEDICARE, SELFPAY ==
[2021-08-15] VITALS (30 sets, daily range): BP systolic 96–132; BP diastolic 51–90; PULSE 72–169; RESP 14–48; TEMP 35.8–37.2; O2SAT 91–97; BMI 33.3
--- NOTE | 2021-08-15 00:16 | EKG12_ITS ---
Test Reason : REPEAT Blood Pressure : / mmHG Vent. Rate : 105 BPM Atrial Rate : 105 BPM P-R Int : 180 ms QRS Dur : 166 ms QT Int : 386 ms P-R-T Axes : 087 032 148 degrees QTc Int : 510 ms Sinus tachycardia with prolonged IL-interval Left bundle branch block Abnormal ECG Confirmed by DMITRY MCLAIN, ALCON ([id number]), purchase request editor LLOYD BATISTA ([id number]) on 08/17/2021 11:22:52 AM Referred By: BRUCE Confirmed By:ALCON ANDRES MD
--- NOTE | 2021-08-15 00:16 | RAD_ITS ---
EXAM: XR CHEST, 1 VIEW CLINICAL INDICATION: chest pain TECHNIQUE: Frontal view of the chest. This report was created using [employer] report generation technology. COMPARISON: Chest x-ray 10/19/2020 FINDINGS: LUNGS AND PLEURAL SPACES: Minimal subsegmental atelectasis at the left base. No dense consolidation. No pleural effusion or pneumothorax. HEART: Unremarkable. Cardiac silhouette not enlarged. MEDIASTINUM: Central airways and mediastinal contour are unremarkable. BONES/JOINTS: Redemonstration of disrupted uppermost sternotomy wire. Degenerative changes of the left glenohumeral joint and acromioclavicular joint. The right side is not visualized. SOFT TISSUES: Unremarkable. VASCULATURE: Atherosclerotic calcifications of the ectatic thoracic arch. No hilar or mediastinal enlargement. Trachea is unremarkable. RAD/Chest 1 View (Portable) IMPRESSION: No definite acute cardiopulmonary disease. Electronically Signed: Constantino Melendez MD at 1:10 EST Tel , Service support ,
--- NOTE | 2021-08-15 00:23 | ED.VIS.DYS ---
HPI History of Present Illness Chief Complaint: Shortness of Breath Detail of Chief Complaint: And accelerated heart rate. Informant: patient and spouse/S.O. Onset/Context/Timing Onset: Today and Hours Context: sudden Timing: Continuous Current Severity: Mild Maximum Severity: Moderate Worsened by: Nothing Relieved by: Nothing Associated Symptoms Negative for cough, rhinorrhea, fever, sore throat, subjective, sweats, clear sputum, white sputum, yellow sputum or green sputum Chest Pain: Positive for Continuous Narrative Narrative: 65-year-old male on Plavix and Coumadin. Said 2 to 3 hours ago he had shaking, accelerated heart rate and began having shortness of breath. Prior to this he felt fine. He denies any fever or chills. Denies any recent cough. Said about an hour ago he developed mild left-sided chest pain. Denies any recent hospitalization or illness. He does have a history of A. fib, mechanical valve for which he is on Coumadin and prior CABG with 4 cardiac stents. PE Risk Factors: Negative for Cancer, OCP + Smoking + > 35, Prior DVT or PE, Recent immobilization, Recent surgery and Recent travel Prior similar symptoms: Yes Recent Illness/Hospitalization: No [facility] Medical History (Updated 08/15/21 @ 03:32 by Chen Kolb) Atherosclerosis of coronary artery of three affiliated heart without angina pectoris Bipolar 1 disorder CVA (cerebral vascular accident) Depression GERD (gastroesophageal reflux disease) Hyperlipidemia Hypertension Lumbar disc disease Non-ST elevation (NSTEMI) myocardial infarction Nonrheumatic aortic (valve) stenosis with insufficiency Peptic ulcer disease Right rotator cuff tear arthropathy Shortness of breath Status post placement of implantable loop recorder (~2004) Home Medications benztropine 1 mg PO TID 10/20/15 [History Last Taken 11/05/20 07:00] clopidogrel 75 mg PO DAILY 10/20/15 [History Last Taken 10/03/18 09:00 75 mg] risperidone 4 mg PO BID 10/20/15 [History Last Taken 10/03/18 09:00 4 mg] tamsulosin 0.4 mg PO QHS 02/01/17 [History Last Taken 10/02/18 21:00 0.4mg] buspirone 10 mg tablet 15 mg PO TID 09/12/18 [History Last Taken 10/03/18 16:00 15 mg] potassium chloride 10 mEq capsule,extended release 10 meq PO DAILY 09/12/18 [History Last Taken 10/03/18 09:00 10 meq] metoprolol tartrate 25 mg tablet 12.5 mg PO BID #30 tab 09/17/18 [Rx Last Taken 11/05/20 07:00] donepezil 10 mg PO QHS 10/03/18 [History Last Taken 10/03/18 09:00 10 mg] fluoxetine 40 mg capsule 20 mg PO DAILY 04/19/20 [History Last Taken Unknown] albuterol sulfate 2.5 mg INHALATION Q4H PRN #180 ml 10/11/20 [Rx Last Taken Unknown] budesonide-formoterol 1 puff INHALATION BID PRN 10/29/20 [History Last Taken Unknown] esomeprazole magnesium 20 mg PO BID 10/29/20 [History Last Taken 11/05/20 07:00] cholecalciferol (vitamin D3) 50 mcg PO DAILY 11/01/20 [History Last Taken Unknown] memantine 5 mg PO BID 11/01/20 [History Last Taken Unknown] montelukast 10 mg PO QHS 11/01/20 [History Last Taken Unknown] pantoprazole 40 mg PO BID 11/01/20 [History Last Taken Unknown] acetaminophen 500 mg capsule 500 mg PO TID PRN cap 12/20/20 [History Last Taken Unknown] warfarin 1 mg tablet 1 mg PO .COMPLEX #45 tab 02/23/21 [Rx Last Taken Unknown] warfarin 6 mg tablet 6 mg PO .COMPLEX #90 tab 02/23/21 [Rx Last Taken Unknown] benralizumab 30 mg/mL subcutaneous syringe 30 mg SC Q8W #1 ml 04/11/21 [Rx Last Taken Unknown] furosemide [Lasix] 40 mg PO DAILY 08/15/21 [History Last Taken Unknown] Allergy/AdvReac Type Severity Reaction Status Date / Time iodine Allergy Other Verified 08/15/21 00:11 contrast dye Allergy Shortness Uncoded 08/15/21 00:11 of breath Family History Father CAD (coronary artery disease) Mother CAD (coronary artery disease) Sister CAD (coronary artery disease) CVA (cerebral vascular accident) Surgical History Abdominal Aortagram (~08/18/13) H/O aortic valve replacement (~09/2004) History of appendectomy History of coronary artery stent placement History of foreign body in respiratory tract History of lumbar spinal fusion (~06/29/14) History of repair of right rotator cuff Presence of aortocoronary bypass graft (~01/2003) Social History Smoking Status: Former smoker quit date: 06/12/04 Tobacco: How many years used: 15 ROS ROS ED ROS Narrative Shortness of breath. Accelerated heart rate. Chest pain. Review of Systems ROS Unobtainable: Denies due to encephalopathy Constitutional Constitutional ED: Denies chills or fever(s) Eyes Eyes: Denies change in vision ENT ENT ED: Denies ear pain Cardiovascular Cardiovascular: Reports chest pain and racing heartbeat; Denies palpitations Respiratory/Chest Respiratory/Chest: Reports dyspnea; Denies cough or sputum Gastrointestinal Gastrointestinal: Denies abdominal pain, diarrhea, nausea or vomiting Genitourinary Genitourinary ED: Denies dysuria Musculoskeletal Musculoskeletal: Denies myalgias Integumentary Denies rash Neurologic Neurologic: Denies headache(s) Psychiatric Psychiatric: Denies depression Endocrine Endocrinology: Denies polyuria Hematologic/Lymphatic Hematologic/Lymphatic: Denies easy bruising Allergic/Immunologic Allergic/Immunologic ED: Denies urticaria EXAM Physical Exam Narrative Exam Narrative: Six 5-year-old male with accelerated heart rate on the monitor about 160 with a left bundle branch block. Vital signs otherwise his blood pressure is 121/90 his pulse ox 94% on room air no hypoxia. He is afebrile. He does not look septic or toxic. He is actually tolerating this quite well. H EENT exam unremarkable atraumatic. Neck nontender no JVD. No lymphadenopathy. Lungs few rales scattered. Heart tachycardic rate about 160. Abdomen soft nontender. Moving all 4 extremities. Normal instant powder supervisor strength. Normal range of motion. No edema nontender calves. Neurologically is awake and alert. Following commands. Answering questions. Const Vital Signs: 08/15/21 00:02 08/15/21 00:11 08/15/21 00:26 Temperature 96.5 F L Temperature Source Temporal Pulse Rate 160 H Respiratory Rate 30 H Respiratory Effort Short of Breath Respiratory Depth Deep Respiratory Pattern Tachypnea Blood Pressure 121/90 H Blood Pressure Mean 100 Pulse Ox 94 93 Oxygen Delivery Method Room Air Room Air Nasal Cannula Oxygen Flow Rate (L/min) 2 08/15/21 00:46 08/15/21 01:48 08/15/21 01:49 Temperature Temperature Source Pulse Rate 135 H 133 H 133 H Respiratory Rate 30 H 21 H Respiratory Effort Respiratory Depth Respiratory Pattern Blood Pressure 112/84 H 112/84 H Blood Pressure Mean 93 93 Pulse Ox 94 94 Oxygen Delivery Method Room Air Room Air Oxygen Flow Rate (L/min) 08/15/21 02:04 Temperature Temperature Source Pulse Rate 120 H Respiratory Rate 22 H Respiratory Effort Respiratory Depth Respiratory Pattern Blood Pressure 121/69 H Blood Pressure Mean 86 Pulse Ox 96 Oxygen Delivery Method Nasal Cannula Oxygen Flow Rate (L/min) 2 Positive well nourished, well developed and obese; Negative for cachectic, contractures or unkempt General Appearance ED: well developed and NAD; Negative for unkempt, cachectic or contractures Nutritional Appearance: obese; Negative for cachectic HEENT Reports moist mucous membranes atraumatic; Negative for trauma or tenderness Eyes PERRL and EOMs intact bilaterally Neck no lymphadenopathy, supple, no meningeal signs and no JVD General: Negative for tenderness Resp normal respiratory effort and No clear to auscultation bilaterally Auscultation: rales; Negative for rhonchi, wheezes or diminished lung sounds Cardio Negative for regular rate or regular rhythm Cardio Narrative: Wide-complex tachycardia on the monitor rate about 160. Rate: tachycardic GI non-tender, non-distended and no masses Auscultation: normoactive bowel sounds Palpation: soft; Negative for tender, guarding or rebound tenderness present Back/Spine normal to inspection; Negative for no CVA tenderness Extremity normal to inspection General Extremety ED: Negative for edema or tenderness General Extremity: Negative for edema Neuro oriented x3 Sensorium / Orientation: alert, oriented to person, oriented to place and oriented to time; Negative for orientation impaired, confused or lethargic Psych mental status grossly normal Appearance: Negative for unkempt Thought Process: normal thought process Skin no wounds and No skin turgor normal Lesions: no lesions Rashes: no rashes MDM MDM MDM Narrative Medical decision making narrative: 65-year-old male with a wide-complex tachycardia with a history of A. fib and prior cardiac surgery. This may be A. fib RVR with left bundle branch block. Was treated with IV Cardizem. Undergo cardiac work-up. Repeat exam after the initial IV Cardizem bolus his heart rate still is 124. He will be placed on a Cardizem drip. Have already spoken to the hospitalist he will be admitted to PCU for recurrent A. fib RVR. Lab Data Attestation: I reviewed the patient's lab results. Lab results narrative: CBC shows a white count 13.4. Hemoglobin 15. Platelets 273. Chemistry panel shows a gap at 9 BUN of 19 creatinine 1.1. Glucose 145. Troponin equals 8. BNP equals 84 INR of 2.5 he is on Coumadin. Labs: Laboratory Results - last 24 hr 08/15/21 08/15/21 08/15/21 00:16 00:16 00:16 WBC 13.4 H RBC 5.02 Hgb 15.7 Hct 48.0 MCV 95.6 H MCH 31.3 MCHC 32.7 RDW Std Deviation 47.4 H RDW Coeff of Adalberto 13.3 Plt Count 273 MPV 9.0 Immature Gran % (Auto) 0.500 Neut % (Auto) 77.7 H Lymph % (Auto) 16.4 L [place] % (Auto) 5.2 Eos % (Auto) 0.0 Baso % (Auto) 0.2 Absolute Neuts (auto) 10.4 H Absolute Lymphs (auto) 2.20 Nucleated RBC % 0 PT 26.4 H INR 2.5 Sodium 140 Potassium 4.1 Chloride 105 Carbon Dioxide 26.0 Anion Gap 9 BUN 19 H Creatinine 1.17 Estim Creat Clear Calc 74.16 Est GFR (MDRD) Af Amer 81 Est GFR (MDRD) Non-Af 67 BUN/Creatinine Ratio 16.2 Glucose 145 H Calcium 8.9 Magnesium Troponin I High Sens 8 B-Natriuretic Peptide 08/15/21 08/15/21 00:16 00:16 WBC RBC Hgb Hct MCV MCH MCHC RDW Std Deviation RDW Coeff of Adalberto Plt Count MPV Immature Gran % (Auto) Neut % (Auto) Lymph % (Auto) [place] % (Auto) Eos % (Auto) Baso % (Auto) Absolute Neuts (auto) Absolute Lymphs (auto) Nucleated RBC % PT INR Sodium Potassium Chloride Carbon Dioxide Anion Gap BUN Creatinine Estim Creat Clear Calc Est GFR (MDRD) Af Amer Est GFR (MDRD) Non-Af BUN/Creatinine Ratio Glucose Calcium Magnesium 1.8 Troponin I High Sens B-Natriuretic Peptide 84.8 Radiography Chest X-Ray - ED: 1 View, Read by ED Physician, Heart, Lungs, Mediastinum, Bony Structures, No Acute Disease, Chronic Changes and CHF Diagnostic Testing: Clinical Impression(s) from Imaging Studies Chest X-Ray 08/15/21 00:16 IMPRESSION: No definite acute cardiopulmonary disease. Electronically Signed: Constantino Melendez MD at 1:10 EST Tel , Service support , Chest x-ray, portable, single view interpreted by myself shows chronic changes. Normal cardiac silhouette. Rhythm Strip Rhythm Strip: Wide-complex tachycardia Rate: 156 Ectopy: None EKG Initial EKG: Attestation: I personally reviewed and interpreted this EKG as follows: Interpretation: No Acute Injury Pattern Comments: Wide-complex tachycardia with interventricular conduction delay. Appears to have a left bundle branch block similar to an EKG had on November 2019. Prior: Unchanged Discharge Plan Dx/Rx/DC Orders Clinical Impression: Atrial fibrillation with rapid ventricular response, Adequate anticoagulation on anticoagulant therapy, History of coronary artery disease, History of heart valve replacement with mechanical valve Disposition Disposition: Acute Care Hospital [facility]
[2021-08-15] MEDS: dilTIAZem 25 MG/5 ML Vial IV BOLUS (00:28)
[2021-08-15 00:34] LABS: Absolute Neutrophil Count 10.4 X10^3/uL (2.0-7.7); Basophil# 0.03 X10^3/uL; Basophil% 0.2 % (0-1); Hemoglobin 15.7 g/dL (13.0-16.5); Lymphocyte % 16.4 % (19-41); Mean Corp Hgb Conc 32.7 g/dL (32-36); Mean Corpuscular Hgb 31.3 pg (27.0-32.0); Mean Corpuscular Volume 95.6 fL (80-94); Monocyte% 5.2 % (0-10); NRBC Flagged by Analyzer 0 % (0-5); Neutrophil # 10.39 X10^3/uL (2.7-7.7); Neutrophil % 77.7 % (47-70); Platelet Count 273 K/mm3 (150-450); RBC Distribution Width CV 13.3 % (11.6-14.6); RBC Distribution Width SD 47.4 fl (35.1-43.9); Red Blood Count 5.02 M/mm3 (4.6-6.2); White Blood Count 13.4 K/mm3 (4.4-11.0)
[2021-08-15 00:57] LABS: Anion Gap 9 (5-15); BUN 19 mg/dL (7-18); BUN/Creat Ratio 16.2 RATIO (10-20); Calcium,Total 8.9 mg/dL (8.5-10.1); Chloride 105 mmol/L (98-107); Creatinine, Serum 1.17 mg/dL (0.70-1.30); EST Glomerular Filtration Rate 67 mL/min (>60); Est Glom Filt Rate - Afr Amer 81 mL/min (>60); Estimated Creatinine Clearance 74.16 ml/min; Glucose 145 mg/dL (74-106); Potassium 4.1 mmol/L (3.5-5.1); Sodium Level 140 mmol/L (136-145); Troponin-I HS 8 pg/mL (3.0-78.0)
[2021-08-15 01:12] LABS: International Normalized Ratio 2.5; Prothrombin Time (Protime)PT. 26.4 SECONDS (11.7-14.9)
[2021-08-15 01:35] LABS: BNP,B-Type NATRIURETIC PEPTIDE 84.8 pg/mL (0-100)
[2021-08-15] MEDS: LORazepam 1 MG Tablet PO (01:50)
--- NOTE | 2021-08-15 02:32 | PCM.HP.STD ---
HPI - General General Date of Admission: 08/15/21 HPI Narrative PASHA DENISE, is a 65 M with a significant history of COPD; CAD status post CABG and stent; obstructive sleep apnea on CPAP who presents to the emergency department with sudden onset shakiness that started few hours before presentation. Associated with symptom is some shortness of breath and pain under his left breast. He described the pain under his left breast as sharp and achy with intensity of 5 out of 6. He denies any nausea or vomiting. Emergency part of the reported the patient is seen recurrence A. drea with rapid ventricular response and was given Cardizem IV bolus and started on Cardizem drip [facility] Medical History Atherosclerosis of coronary artery of [place] heart without angina pectoris Bipolar 1 disorder CVA (cerebral vascular accident) Depression GERD (gastroesophageal reflux disease) Hyperlipidemia Hypertension Lumbar disc disease Non-ST elevation (NSTEMI) myocardial infarction Nonrheumatic aortic (valve) stenosis with insufficiency Peptic ulcer disease Shortness of breath Status post placement of implantable loop recorder (~2004) Home Medications benztropine 1 mg PO TID 10/20/15 [History Last Taken 11/05/20 07:00] clopidogrel 75 mg PO DAILY 10/20/15 [History Last Taken 10/03/18 09:00 75 mg] risperidone 4 mg PO BID 10/20/15 [History Last Taken 10/03/18 09:00 4 mg] tamsulosin 0.4 mg PO QHS 02/01/17 [History Last Taken 10/02/18 21:00 0.4mg] buspirone 10 mg tablet 15 mg PO TID 09/12/18 [History Last Taken 10/03/18 16:00 15 mg] potassium chloride 10 mEq capsule,extended release 10 meq PO DAILY 09/12/18 [History Last Taken 10/03/18 09:00 10 meq] metoprolol tartrate 25 mg tablet 12.5 mg PO BID #30 tab 09/17/18 [Rx Last Taken 11/05/20 07:00] donepezil 10 mg PO QHS 10/03/18 [History Last Taken 10/03/18 09:00 10 mg] fluoxetine 40 mg capsule 20 mg PO DAILY 04/19/20 [History Last Taken Unknown] albuterol sulfate 2.5 mg INHALATION Q4H PRN #180 ml 10/11/20 [Rx Last Taken Unknown] budesonide-formoterol 1 puff INHALATION BID PRN 10/29/20 [History Last Taken Unknown] esomeprazole magnesium 20 mg PO BID 10/29/20 [History Last Taken 11/05/20 07:00] cholecalciferol (vitamin D3) 50 mcg PO DAILY 11/01/20 [History Last Taken Unknown] memantine 5 mg PO BID 11/01/20 [History Last Taken Unknown] montelukast 10 mg PO QHS 11/01/20 [History Last Taken Unknown] pantoprazole 40 mg PO BID 11/01/20 [History Last Taken Unknown] acetaminophen 500 mg capsule 500 mg PO TID PRN cap 12/20/20 [History Last Taken Unknown] warfarin 1 mg tablet 1 mg PO .COMPLEX #45 tab 02/23/21 [Rx Last Taken Unknown] warfarin 6 mg tablet 6 mg PO .COMPLEX #90 tab 02/23/21 [Rx Last Taken Unknown] benralizumab 30 mg/mL subcutaneous syringe 30 mg SC Q8W #1 ml 04/11/21 [Rx Last Taken Unknown] furosemide [Lasix] 40 mg PO DAILY 08/15/21 [History Last Taken Unknown] Allergy/AdvReac Type Severity Reaction Status Date / Time iodine Allergy Other Verified 08/15/21 00:11 contrast dye Allergy Shortness Uncoded 08/15/21 00:11 of breath Family History Father CAD (coronary artery disease) Mother CAD (coronary artery disease) Sister CAD (coronary artery disease) CVA (cerebral vascular accident) Surgical History Abdominal Aortagram (~08/18/13) H/O aortic valve replacement (~09/2004) History of appendectomy History of coronary artery stent placement History of foreign body in respiratory tract History of lumbar spinal fusion (~06/29/14) History of repair of right rotator cuff Presence of aortocoronary bypass graft (~01/2003) Social History Smoking Status: Former smoker quit date: 06/12/04 Tobacco: How many years used: 15 ROS ROS Narrative Constitutional: Denies fever, chills, fatigue, anorexia and change in weight Eyes: Denies blurry vision, change in eye color, change in vision, discharge from eye(s), double vision, erythema, eye pain, loss of vision or other HEENT: Denies abnormal hearing, dysphagia, ear pain, epistaxis, headache(s), hearing loss, nasal congestion, nasal discharge, post nasal drip, sinus pressure, sore throat or other Cardiovascular: Reports chest pain. He denies palpitations. Respiratory/Chest: Reports cough with small clear sputum. Reports shortness of breath. Gastrointestinal: Denies abdominal pain, coffee ground emesis, constipation, diarrhea, dyspepsia, hematemesis, hematochezia, loose stools, melena, nausea, vomiting or other Genitourinary: Denies burning urination, difficulty urinating, dysuria, hematuria, nocturia, urinary frequency, urinary hesitancy, urinary incontinence, urinary urgency or other Musculoskeletal: Denies arthralgias, back pain, joint pain, joint stiffness, joint swelling, myalgias, neck pain or other Neurologic: Denies abnormal gait, abnormal speech, confusion, disequilibrium, dizziness, focal weakness, headache(s), numbness, paresthesias, seizure-like activity, seizures, syncope, tingling, tremor(s) or other Psychiatric: Denies anxiety, depression, homicidal ideation, suicidal ideation or other Endocrinology: Denies change in body appearance, cold intolerance, excessive sweating, heat intolerance, polydipsia, polyuria or other Hematologic/Lymphatic: Denies anemia, easy bleeding, easy bruising, lymphadenopathy or other Integumentary: Denies rashes Allergic/Immunologic: Denies rhinitis, hives, eczema, asthma or other Vital Signs Vital Signs Vital Signs: 08/15/21 00:02 08/15/21 00:11 08/15/21 00:26 Temperature 96.5 F L Temperature Source Temporal Pulse Rate 160 H Respiratory Rate 30 H Respiratory Effort Short of Breath Respiratory Depth Deep Respiratory Pattern Tachypnea Blood Pressure 121/90 H Blood Pressure Mean 100 Pulse Ox 94 93 Oxygen Delivery Method Room Air Room Air Nasal Cannula Oxygen Flow Rate (L/min) 2 08/15/21 00:46 08/15/21 01:48 08/15/21 01:49 Temperature Temperature Source Pulse Rate 135 H 133 H 133 H Respiratory Rate 30 H 21 H Respiratory Effort Respiratory Depth Respiratory Pattern Blood Pressure 112/84 H 112/84 H Blood Pressure Mean 93 93 Pulse Ox 94 94 Oxygen Delivery Method Room Air Room Air Oxygen Flow Rate (L/min) 08/15/21 02:04 Temperature Temperature Source Pulse Rate 120 H Respiratory Rate 22 H Respiratory Effort Respiratory Depth Respiratory Pattern Blood Pressure 121/69 H Blood Pressure Mean 86 Pulse Ox 96 Oxygen Delivery Method Nasal Cannula Oxygen Flow Rate (L/min) 2 Weight Weight: 117.934 kg Body Mass Index (BMI) 33.3 Results Lab / Micro Data Result Diagrams: 08/15/21 00:16 08/15/21 00:16 Labs: Laboratory Results - last 24 hr 08/15/21 00:16: WBC 13.4 H, RBC 5.02, Hgb 15.7, Hct 48.0, MCV 95.6 H, MCH 31.3, MCHC 32.7, RDW Std Deviation 47.4 H, RDW Coeff of Adalberto 13.3, Plt Count 273, MPV 9.0, Immature Gran % (Auto) 0.500, Neut % (Auto) 77.7 H, Lymph % (Auto) 16.4 L, [place] % (Auto) 5.2, Eos % (Auto) 0.0, Baso % (Auto) 0.2, Absolute Neuts (auto) 10.4 H, Absolute Lymphs (auto) 2.20, Nucleated RBC % 0 08/15/21 00:16: PT 26.4 H, INR 2.5 08/15/21 00:16: Sodium 140, Potassium 4.1, Chloride 105, Carbon Dioxide 26.0, Anion Gap 9, BUN 19 H, Creatinine 1.17, Estim Creat Clear Calc 74.16, Est GFR (MDRD) Af Amer 81, Est GFR (MDRD) Non-Af 67, BUN/Creatinine Ratio 16.2, Glucose 145 H, Calcium 8.9, Troponin I High Sens 8 08/15/21 00:16: B-Natriuretic Peptide 84.8 Rhythm Strip Rhythm Strip: Wide-complex tachycardia Rate: 156 Ectopy: None Radiology Impression Chest X-Ray 08/15/21 00:16 IMPRESSION: No definite acute cardiopulmonary disease. Electronically Signed: Constantino Melendez MD at 1:10 EST Tel , Service support , Assessment & Plan Assessment/Plan (1) Wide-complex tachycardia: PLAN: Wide-complex tachycardia EKG reviewed showed wide complex tachycardia/left bundle branch block. Review of previous EKG showed additional new. Received Cardizem bolus at the emergency department; started on Cardizem drip at emergency department. Cardizem drip continued. Review of labs showed normal potassium. Will trend BMP. Will check magnesium and will check TSH. Last TSH on file was on 10/03/2017. If symptoms persist consider cardiology consult Chest pain Acute chest x-ray image independently interpreted did not show any acute cardiopulmonary process. I agree with radiologist interpretation Initial troponin is negative, trend. Trend troponins. History of atrial fibrillation Last echocardiogram on file was on 04/21/2021. Echocardiogram that time showed segmental dysfunction with preserved ejection fraction. His medication fraction was 55%. Diastolic function was indeterminate. There was base anteroseptal hypokinesis. And basal inferoseptal hypokinesis. Per echocardiogram there appeared to be stable mechanical aortic valve prosthesis in place. Metoprolol continued. Not started on Cardizem drip. Continue warfarin. INR is therapeutic. Trend. Dyspnea Check ABG, check BNP. History of CAD status post stents and CABG. Plavix and Coumadin continued. Metoprolol continued. Psychiatry disease/dementia Donepezil and Namenda continued. Risperidone continued. Benztropine continued. JAMES CPAP continued. DVT prophylaxis: Not indicated as patient is on warfarin and INR is therapeutic. Warfarin continued Charges/Coding Visit Charges Inpatient E&M: 82167 Init Hosp L3
[2021-08-15 03:20] LABS: Magnesium 1.8 mg/dL (1.6-2.6)
[2021-08-15 04:44] LABS: Troponin-I HS 280 pg/mL (3.0-78.0)
--- NOTE | 2021-08-15 05:42 | PCS.PANDOC ---
PANDEMIC DOCUMENTATION INITIATED: Date: 08/15/2021 Time: 4075
[2021-08-15 06:28] LABS: Absolute Lymphocyte Count 0.82 X10^3/uL (0.83-4.51); Basophil# 0.03 X10^3/uL; Basophil% 0.2 % (0-1); Hematocrit 46.2 % (40-54); Hemoglobin 15.2 g/dL (13.0-16.5); Lymphocyte # 0.82 X10^3/ul (0.83-4.51); Lymphocyte % 6.4 % (19-41); Mean Corp Hgb Conc 32.9 g/dL (32-36); Mean Corpuscular Hgb 31.1 pg (27.0-32.0); Mean Corpuscular Volume 94.7 fL (80-94); Mean Platelet Vol. 9.1 fl (6.2-12.0); Monocyte# 0.98 X10^3/uL; Monocyte% 7.6 % (0-10); NRBC Flagged by Analyzer 0 % (0-5); Neutrophil # 10.99 X10^3/uL (2.7-7.7); Neutrophil % 85.1 % (47-70); Platelet Count 227 K/mm3 (150-450); RBC Distribution Width CV 13.2 % (11.6-14.6); RBC Distribution Width SD 46.2 fl (35.1-43.9); Red Blood Count 4.88 M/mm3 (4.6-6.2); White Blood Count 12.9 K/mm3 (4.4-11.0)
[2021-08-15] MEDS: Benztropine Mesylate 0.5 MG TABLET 1 MG PO ×3 (06:43→20:49)
[2021-08-15] MEDS: Albuterol 2.5 MG/3 ML VIAL.NEB. INHALATION ×3 (06:57→19:26)
[2021-08-15] MEDS: Budesonide Respules 0.5 MG/2 ML AMPUL.NEB. INHALATION ×2 (06:57→19:26)
[2021-08-15 07:04] LABS: Troponin-I HS 370 pg/mL (3.0-78.0)
[2021-08-15 07:15] LABS: Anion Gap 7 (5-15); BUN 26 mg/dL (7-18); BUN/Creat Ratio 23.9 RATIO (10-20); Chloride 106 mmol/L (98-107); Creatinine, Serum 1.09 mg/dL (0.70-1.30); EST Glomerular Filtration Rate 72 mL/min (>60); Est Glom Filt Rate - Afr Amer 87 mL/min (>60); Glucose 103 mg/dL (74-106); Potassium 3.9 mmol/L (3.5-5.1); Sodium Level 138 mmol/L (136-145); Thyroid Stim Hormone (TSH) 0.92 uIU/mL (0.358-3.74)
[2021-08-15] MEDS: Pantoprazole Sodium 40 MG Tablet PO ×2 (08:01→20:50)
[2021-08-15] MEDS: Furosemide 40 MG Tablet PO (08:01)
[2021-08-15] MEDS: Potassium Chloride Oral Tablet 10 MEQ PO (08:01)
[2021-08-15] MEDS: Memantine Hydrochloride 5 MG Tablet PO ×2 (08:02→20:49)
[2021-08-15] MEDS: Metoprolol Tartrate 25 MG Tablet 12.5 MG PO (08:02)
[2021-08-15] MEDS: RisperiDONE 2 MG Tablet 4 MG PO ×2 (08:03→20:50)
[2021-08-15] MEDS: Cholecalciferol (VIT D3) 25 MCG TABLET (1,000 UNITS) 50 MCG PO (08:03)
[2021-08-15] MEDS: FLUoxetine 20 MG Capsule PO (08:03)
[2021-08-15] MEDS: Clopidogrel Bisulfate 75 MG Tablet PO (08:03)
--- NOTE | 2021-08-15 10:23 | PCS.PANDOC ---
PANDEMIC DOCUMENTATION INITIATED: Date: 04/18/2021 Time: 190
--- NOTE | 2021-08-15 11:46 | PN.HOSP_ITS ---
Subjective Subjective Patient seen and examined. He had no active complaints. He denied any chest pain or palpitations. Review of systems otherwise negative. High-sensitivity troponin trended up to 370. He appears to have converted in sinus rhythm now though he remains on Cardizem drip. Objective Data Objective Data Vital Signs: Vital Signs Temp Pulse Resp BP Pulse Ox 98.1 F 77 20 H 103/82 H 93 08/15/21 10:30 08/15/21 10:53 08/15/21 10:30 08/15/21 10:30 08/15/21 10:30 Oxygen Flow Rate (L/min) 2 Oxygen Delivery Method Room Air Weight: 260 lb Body Mass Index (BMI) 33.3 Intake & Output: Intake and Output for Last 24 Hours 08/13/21 08/14/21 08/15/21 23:59 23:59 23:59 Intake Total 72.33 / 72.33 Balance 72.33 / 72.33 Lab / Micro Data Result Diagrams: 08/15/21 05:55 08/15/21 05:55 Labs: Laboratory Results - last 24 hr 08/15/21 00:16: WBC 13.4 H, RBC 5.02, Hgb 15.7, Hct 48.0, MCV 95.6 H, MCH 31.3, MCHC 32.7, RDW Std Deviation 47.4 H, RDW Coeff of Adalberto 13.3, Plt Count 273, MPV 9.0, Immature Gran % (Auto) 0.500, Neut % (Auto) 77.7 H, Lymph % (Auto) 16.4 L, [place] % (Auto) 5.2, Eos % (Auto) 0.0, Baso % (Auto) 0.2, Absolute Neuts (auto) 10.4 H, Absolute Lymphs (auto) 2.20, Nucleated RBC % 0 08/15/21 00:16: PT 26.4 H, INR 2.5 08/15/21 00:16: Sodium 140, Potassium 4.1, Chloride 105, Carbon Dioxide 26.0, Anion Gap 9, BUN 19 H, Creatinine 1.17, Estim Creat Clear Calc 74.16, Est GFR (MDRD) Af Amer 81, Est GFR (MDRD) Non-Af 67, BUN/Creatinine Ratio 16.2, Glucose 145 H, Calcium 8.9, Troponin I High Sens 8 08/15/21 00:16: B-Natriuretic Peptide 84.8 08/15/21 00:16: Magnesium 1.8 08/15/21 03:48: Troponin I High Sens 280 H* 08/15/21 05:55: WBC 12.9 H, RBC 4.88, Hgb 15.2, Hct 46.2, MCV 94.7 H, MCH 31.1, MCHC 32.9, RDW Std Deviation 46.2 H, RDW Coeff of Adalberto 13.2, Plt Count 227, MPV 9.1, Immature Gran % (Auto) 0.700, Neut % (Auto) 85.1 H, Lymph % (Auto) 6.4 L, [place] % (Auto) 7.6, Eos % (Auto) 0.0, Baso % (Auto) 0.2, Absolute Neuts (auto) 11.0 H, Absolute Lymphs (auto) 0.82 L, Nucleated RBC % 0 08/15/21 05:55: Sodium 138, Potassium 3.9, Chloride 106, Carbon Dioxide 25.0, Anion Gap 7, BUN 26 H, Creatinine 1.09, Estim Creat Clear Calc 79.60, Est GFR (MDRD) Af Amer 87, Est GFR (MDRD) Non-Af 72, BUN/Creatinine Ratio 23.9 H, Glucose 103, Calcium 9.0, TSH 0.92 08/15/21 05:55: Troponin I High Sens 370 H* Radiography Diagnostic Testing: Radiology Impression Chest X-Ray 08/15/21 00:16 IMPRESSION: No definite acute cardiopulmonary disease. Electronically Signed: Constantino Melendez MD at 1:10 EST Tel , Service support , Rhythm Strip Rhythm Strip: Wide-complex tachycardia Rate: 156 Ectopy: None Physical Exam Const alert, oriented x3 and no apparent distress Exam Limitations: no limitations HEENT head/scalp atraumatic and moist oral mucous membranes Head and Scalp: normocephalic Eyes PERRL, EOMs intact bilaterally and conjunctivae normal Neck no lymphadenopathy Resp normal respiratory effort, no retractions, no use of accessory muscles and clear to auscultation bilaterally Cardio regular rhythm, S1 normal heart sound, S2 normal heart sound and no murmurs GI normal to inspection, nondistended, normoactive bowel sounds, soft to palpation, non-tender, non-distended and hepatosplenomegaly Extremity normal to inspection, full ROM and no clubbing, cyanosis or edema Peripheral Pulses: Yes pulses 2+ throughout Skin no rashes or lesions noted Neuro oriented x3, CN's II-XII intact bilaterally and moves all extremities Sensorium / Orientation: awake and alert Psych affect normal Assessment & Plan Assessment/Plan (1) Atrial fibrillation with rapid ventricular response: (2) NSTEMI, initial episode of care: PLAN: #Afib with RVR * on cardizem drip * now appears to be in normal sinus rhythm * troponins trended upwards. * he denies any chest pain now and shortness of breath has improved. * wean off cardizem as tolerated * cardiology on board. * On Coumadin * #Nonstemi * troponins trended upwards to 380, from 270 * cardiology on board. * on statin and plavix as well as aspirin and metoprolol. * #Depression: on buspirone and fluoxetine #Dementia: on memantine #GERD: On PPI #Hypertension: On metoprolol #Hyperlipidemia: On statin DVT prophylaxis: Not indicated as patient is on Coumadin. INR is 2.5 Charges/Coding Visit Charges Inpatient E&M: 05865 Subs Hosp L3
--- NOTE | 2021-08-15 11:50 | CASEMGMT ---
RN JAX Face to Face with patient for initial transition planning/care coordination assessment. RN CM introduced self and role at [facility]. Patient lying in bed, alert and oriented. Patient willing to participate in assessment and is able to answer all questions appropriately. Care providers, pharmacy, and demographics verified. Patient wishes to discharge home, denies need for home health at this time. Patient states he has no further needs or concerns at this time. CM to follow for discharge planning needs that may arise. PCP: Paula Specialists: none Preferred Pharmacy: [facility] Insurance: [facility] Prescription Benefit: yes Living Will/HPOA: none LNOK: Living Arrangements: Patient lives with in a 1st floor apartment with 5-6 steps and railing to enter the home. Patient states he is independent at home. Transportation: DME/HHC: Patient states he has a cane at home. No previous HHC or SNF. Will monitor progress with therapy Disposition Plan: Patient to discharge home with family support and follow-up plans in place. Kelly COUGHLIN, RN, CM
--- NOTE | 2021-08-15 12:59 | EKG12_ITS ---
Test Reason : SOB Blood Pressure : / mmHG Vent. Rate : 156 BPM Atrial Rate : 170 BPM P-R Int : 000 ms QRS Dur : 146 ms QT Int : 336 ms P-R-T Axes : 000 045 151 degrees QTc Int : 541 ms Wide QRS tachycardia Left bundle branch block Abnormal ECG Confirmed by DMITRY MCLAIN, ALCON ([id number]), story editor LLOYD BATISTA ([id number]) on 08/17/2021 11:26:22 AM Referred By: ROSANNE Confirmed By:ALCON ANDRES MD
--- NOTE | 2021-08-15 13:11 | EKG12_ITS ---
Test Reason : Blood Pressure : / mmHG Vent. Rate : 074 BPM Atrial Rate : 074 BPM P-R Int : 242 ms QRS Dur : 172 ms QT Int : 464 ms P-R-T Axes : 062 018 180 degrees QTc Int : 515 ms Sinus rhythm with 1st degree A-V block Left bundle branch block Abnormal ECG Confirmed by DMITRY MCLAIN, ALCON ([id number]), editorial clerk LLOYD BATISTA ([id number]) on 08/17/2021 12:26:31 PM Referred By: JENNI Confirmed By:ALCON ANDRES MD
--- NOTE | 2021-08-15 14:17 | PN.CARD_ITS ---
Subjective Subjective 65-year-old man with a history of known coronary artery disease who presented to the emergency room with shakiness as well as shortness of breath and an episode of chest discomfort which she describes as sharp. He was noted to be in a wide- complex rhythm which was thought to be atrial fibrillation and he was admitted through the emergency room and placed on intravenous diltiazem. He subsequently converted to sinus rhythm. It was thought that he had been in atrial fibrillation. Cardiology was apparently consulted. He has a history of bipolar disorder, hypertension, and hypercholesterolemia. Specifically, patient has a history of four-vessel bypass surgery in 1999. At that time he received a MEDINA to the LAD, saphenous vein graft to the diagonal and obtuse marginal, and a saphenous vein graft to the PDA. In June 2004 the patient returned with atypical substernal chest pain, a stress test was done which was found to be nondiagnostic and a repeat catheterization was performed at that time. This was done at [facility]. At that time he received a balloon angioplasty only of the anastomotic site of the MEDINA to the LAD. He had repeat catheterization in 2004 after being diagnosed with COPD by CAT scan. Patient had aggressively worsening aortic valvular issues including aortic stenosis and aortic insufficiency. He underwent subsequent [place] aortic valvular replacement due to his bicuspid aortic valve by Dr. Lainez in 2004. Patient had subsequent episodes of chest pain and received multiple interventions since that time. He had angioplasty and stenting of his RCA and subsequently to his vein graft to his PDA with less than optimal flow. On 07/24/2012 the patient had repeat coronary angiography by Dr. Galeano at [facility] where he presented with chest pain from [place]. At that time, he was found to have a significant stenosis in the vein graft to the diagonal branch. The patient received a 4.0X 38 Promus stent which appear to be a complex and tedious procedure requiring guide liner therapy, with temporary no reflow resolved with export and verapamil. He does have a history of obstructive lung disease as well as atrial fibrillation and a left bundle branch block. He has been on Coumadin. He does have shortness of breath and uses his CPAP mask. He denies any exertional angina or syncope. Objective Data Vital Signs: Vital Signs Temp Pulse Resp BP Pulse Ox 98.1 F 78 23 H 105/57 L 93 08/15/21 10:30 08/15/21 13:00 08/15/21 13:00 08/15/21 13:00 08/15/21 13:00 Oxygen Flow Rate (L/min) 2 Oxygen Delivery Method Room Air Weight: 260 lb Body Mass Index (BMI) 33.3 Intake & Output: Intake and Output for Last 24 Hours 08/13/21 08/14/21 08/15/21 23:59 23:59 23:59 Intake Total 245.17 / 245.17 Balance 245.17 / 245.17 Lab / Micro Data Result Diagrams: 08/15/21 05:55 08/15/21 05:55 Labs: Laboratory Results - last 24 hr 08/15/21 00:16: WBC 13.4 H, RBC 5.02, Hgb 15.7, Hct 48.0, MCV 95.6 H, MCH 31.3, MCHC 32.7, RDW Std Deviation 47.4 H, RDW Coeff of Adalberto 13.3, Plt Count 273, MPV 9.0, Immature Gran % (Auto) 0.500, Neut % (Auto) 77.7 H, Lymph % (Auto) 16.4 L, Sanders % (Auto) 5.2, Eos % (Auto) 0.0, Baso % (Auto) 0.2, Absolute Neuts (auto) 10.4 H, Absolute Lymphs (auto) 2.20, Nucleated RBC % 0 08/15/21 00:16: PT 26.4 H, INR 2.5 08/15/21 00:16: Sodium 140, Potassium 4.1, Chloride 105, Carbon Dioxide 26.0, Anion Gap 9, BUN 19 H, Creatinine 1.17, Estim Creat Clear Calc 74.16, Est GFR (MDRD) Af Amer 81, Est GFR (MDRD) Non-Af 67, BUN/Creatinine Ratio 16.2, Glucose 145 H, Calcium 8.9, Troponin I High Sens 8 08/15/21 00:16: B-Natriuretic Peptide 84.8 08/15/21 00:16: Magnesium 1.8 08/15/21 03:48: Troponin I High Sens 280 H* 08/15/21 05:55: WBC 12.9 H, RBC 4.88, Hgb 15.2, Hct 46.2, MCV 94.7 H, MCH 31.1, MCHC 32.9, RDW Std Deviation 46.2 H, RDW Coeff of Adalberto 13.2, Plt Count 227, MPV 9.1, Immature Gran % (Auto) 0.700, Neut % (Auto) 85.1 H, Lymph % (Auto) 6.4 L, Sanders % (Auto) 7.6, Eos % (Auto) 0.0, Baso % (Auto) 0.2, Absolute Neuts (auto) 11.0 H, Absolute Lymphs (auto) 0.82 L, Nucleated RBC % 0 08/15/21 05:55: Sodium 138, Potassium 3.9, Chloride 106, Carbon Dioxide 25.0, Anion Gap 7, BUN 26 H, Creatinine 1.09, Estim Creat Clear Calc 79.60, Est GFR (MDRD) Af Amer 87, Est GFR (MDRD) Non-Af 72, BUN/Creatinine Ratio 23.9 H, Glucose 103, Calcium 9.0, TSH 0.92 08/15/21 05:55: Troponin I High Sens 370 H* Rhythm Strip Rhythm Strip: Wide-complex tachycardia Rate: 156 Ectopy: None Cardiology Labs/Tests 08/15/21 00:16: WBC 13.4 H, RBC 5.02, Hgb 15.7, Hct 48.0, MCV 95.6 H, MCH 31.3, MCHC 32.7, Plt Count 273, MPV 9.0, Immature Gran % (Auto) 0.500, Neut % (Auto) 77.7 H, Lymph % (Auto) 16.4 L, Sanders % (Auto) 5.2, Eos % (Auto) 0.0, Baso % (Auto) 0.2, Absolute Neuts (auto) 10.4 H, Nucleated RBC % 0 08/15/21 00:16: PT 26.4 H, INR 2.5 08/15/21 00:16: Sodium 140, Potassium 4.1, Chloride 105, Carbon Dioxide 26.0, Anion Gap 9, BUN 19 H, Creatinine 1.17, Est GFR (MDRD) Af Amer 81, Est GFR (MDRD) Non-Af 67, BUN/Creatinine Ratio 16.2, Glucose 145 H, Calcium 8.9 08/15/21 00:16: B-Natriuretic Peptide 84.8 08/15/21 00:16: Magnesium 1.8 08/15/21 05:55: WBC 12.9 H, RBC 4.88, Hgb 15.2, Hct 46.2, MCV 94.7 H, MCH 31.1, MCHC 32.9, Plt Count 227, MPV 9.1, Immature Gran % (Auto) 0.700, Neut % (Auto) 85.1 H, Lymph % (Auto) 6.4 L, Sanders % (Auto) 7.6, Eos % (Auto) 0.0, Baso % (Auto) 0.2, Absolute Neuts (auto) 11.0 H, Nucleated RBC % 0 08/15/21 05:55: Sodium 138, Potassium 3.9, Chloride 106, Carbon Dioxide 25.0, Anion Gap 7, BUN 26 H, Creatinine 1.09, Est GFR (MDRD) Af Amer 87, Est GFR (MDRD) Non-Af 72, BUN/Creatinine Ratio 23.9 H, Glucose 103, Calcium 9.0 Rhythm: EKG: ECHO: Stress Test: Cardiac Cath: PCI: CT Surgery: Holter monitor: EPS: PPM: CXR: Chest CT Scan: Radiography Diagnostic Testing: Radiology Impression Chest X-Ray 08/15/21 00:16 IMPRESSION: No definite acute cardiopulmonary disease. Electronically Signed: Constantino Melendez MD at 1:10 EST Tel , Service support , Physical Exam Const alert, oriented x3 and no apparent distress General Appearance: cooperative HEENT hearing grossly normal bilaterally Head and Scalp: atraumatic Eyes EOMs intact bilaterally Neck General: normal visual inspection Chest inspection of chest normal and palpation of chest normal Resp normal respiratory effort Auscultation: clear to auscultation bilaterally Cardio regular rate, regular rhythm, S1 normal heart sound and S2 normal heart sound Jugular Venous Distention: JVD GI normal to inspection, nondistended, normoactive bowel sounds Extremity normal capillary refill and no pedal edema Peripheral Pulses: Yes pulses 2+ throughout and femoral pulses present Skin no rashes or lesions noted Neuro oriented x3 and CN's II-XII intact bilaterally Psych Appearance: grossly normal and appropriate Assessment & Plan Assessment/Plan (1) NSTEMI, initial episode of care: PLAN: He does have evidence of elevated high-sensitivity troponin. His chest pain was rather atypical. My recommendation at this time would be to maximize his beta-jd therapy as well as continue him on the clopidogrel. I would recommend a pharmacologic myocardial perfusion stress test in a.m. If there is significant ischemia noted then we would proceed with a left heart ca theterization. This is especially in light of the fact that his anticoagulation would need to be discontinued for his mechanical valve. (2) Atrial fibrillation with rapid ventricular response: PLAN: He did present with atrial fibrillation with a rapid ventricular response rate with a left bundle branch block pattern. He appears to have converted back to sinus rhythm. * He will continue with the anticoagulation and I would recommend increasing his beta-jd to metoprolol 25 mg twice a day. (3) Atherosclerosis of coronary artery of [place] heart without angina pectoris: QUALIFIERS: Coronary Disease-Associated Artery/Lesion type: [place] artery Qualified Code(s): I25.10 - Atherosclerotic heart disease of [place] coronary artery without angina pectoris PLAN: He does have a history of coronary artery disease status post previous angioplasty and stenting and status post coronary bypass surgery. He has had multiple procedures in the past. We will assess the above to see whether there is a significant area of ischemia noted. (4) H/O aortic valve replacement: PLAN: He does have a history of aortic valve replacement. His last echocardiogram was from April of this year with preserved ejection fraction with some segmental wall motion abnormalities. This will be reevaluated. His aortic valve however appears to be normally functioning. He will continue with antibiotic prophylaxis. (5) Hypertension: QUALIFIERS: Hypertension type: essential hypertension Qualified Code(s): I10 - Essential (primary) hypertension PLAN: He does have a history of hypertension which appears to be under good control at this time. I would recommend increasing his beta-jd. (6) Presence of aortocoronary bypass graft: PLAN: He is status post coronary bypass surgery as noted above. His anatomy is described in the HPI. (7) Hyperlipidemia: QUALIFIERS: Hyperlipidemia type: unspecified Qualified Code(s): E 78.5 - Hyperlipidemia, unspecified PLAN: He will continue with high intensity statin.
[2021-08-15] MEDS: 0.9% Saline Lock 10 ML Syringe IV (15:37)
[2021-08-15] MEDS: Acetaminophen 500 MG Tablet PO (15:45)
--- NOTE | 2021-08-15 16:21 | PCM.CONS.C ---
Assessment & Plan Assessment/Plan (1) NSTEMI, initial episode of care: PLAN: He does have evidence of elevated high-sensitivity troponin. His chest pain was rather atypical. My recommendation at this time would be to maximize his beta-jd therapy as well as continue him on the clopidogrel. I would recommend a pharmacologic myocardial perfusion stress test in a.m. If there is significant ischemia noted then we would proceed with a left heart catheterization. This is especially in light of the fact that his anticoagulation would need to be discontinued for his mechanical valve. (2) Atrial fibrillation with rapid ventricular response: PLAN: He did present with atrial fibrillation with a rapid ventricular response rate with a left bundle branch block pattern. He appears to have converted back to sinus rhythm. He will continue with the anticoagulation and I would recommend increasing his beta-jd to metoprolol 25 mg twice a day. (3) Atherosclerosis of coronary artery of [place] heart without angina pectoris: QUALIFIERS: Coronary Disease-Associated Artery/Lesion type: [place] artery Qualified Code(s): I25.10 - Atherosclerotic heart disease of [place] coronary artery without angina pectoris PLAN: He does have a history of coronary artery disease status post previous angioplasty and stenting and status post coronary bypass surgery. He has had multiple procedures in the past. We will assess the above to see whether there is a significant area of ischemia noted. (4) H/O aortic valve replacement: PLAN: He does have a history of aortic valve replacement. His last echocardiogram was from April of this year with preserved ejection fraction with some segmental wall motion abnormalities. This will be reevaluated. His aortic valve however appears to be normally functioning. He will continue with antibiotic prophylaxis. (5) Hypertension: QUALIFIERS: Hypertension type: essential hypertension Qualified Code(s): I10 - Essential (primary) hypertension PLAN: He does have a history of hypertension which appears to be under good control at this time. I would recommend increasing his beta-jd. (6) Presence of aortocoronary bypass graft: PLAN: He is status post coronary bypass surgery as noted above. His anatomy is described in the HPI. (7) Hyperlipidemia: QUALIFIERS: Hyperlipidemia type: unspecified Qualified Code(s): E78.5 - Hyperlipidemia, unspecified PLAN: He will continue with high intensity statin. HPI Consult Data Date of Consult: 08/15/21 HPI Narrative HPI Narrative: PASHA DENISE, is a 65 M who presents with atypical chest pain and leg pain.He has a known coronary artery disease who presented to the emergency room with shakiness as well as shortness of breath and an episode of chest discomfort which she describes as sharp. He was noted to be in a wide-complex rhythm which was thought to be atrial fibrillation and he was admitted through the emergency room and placed on intravenous diltiazem. He subsequently converted to sinus rhythm. It was thought that he had been in atrial fibrillation. Cardiology was apparently consulted. He has a history of bipolar disorder, hypertension, and hypercholesterolemia. Specifically, patient has a history of four-vessel bypass surgery in 1999. At that time he received a MEDINA to the LAD, saphenous vein graft to the diagonal and obtuse marginal, and a saphenous vein graft to the PDA. In June 2004 the patient returned with atypical substernal chest pain, a stress test was done which was found to be nondiagnostic and a repeat catheterization was performed at that time. This was done at [facility]. At that time he received a balloon angioplasty only of the anastomotic site of the MEDINA to the LAD. He had repeat catheterization in 2004 after being diagnosed with COPD by CAT scan. Patient had aggressively worsening aortic valvular issues including aortic stenosis and aortic insufficiency. He underwent subsequent [place] aortic valvular replacement due to his bicuspid aortic valve by Dr. Lainez in 2004. Patient had subsequent episodes of chest pain and received multiple interventions since that time. He had angioplasty and stenting of his RCA and subsequently to his vein graft to his PDA with less than optimal flow. On 07/24/2012 the patient had repeat coronary angiography by Dr. Galeano at [facility] where he presented with chest pain from [place]. At that time, he was found to have a significant stenosis in the vein graft to the diagonal branch. The patient received a 4.0X 38 Promus stent which appear to be a complex and tedious procedure requiring guide liner therapy, with temporary no reflow resolved with export and verapamil. He does have a history of obstructive lung disease as well as atrial fibrillation and a left bundle branch block. He has been on Coumadin. He does have shortness of breath and uses his CPAP mask. He denies any exertional angina or syncope. [facility] Medical History Atherosclerosis of coronary artery of [place] heart without angina pectoris Bipolar 1 disorder CVA (cerebral vascular accident) Depression GERD (gastroesophageal reflux disease) Hyperlipidemia Hypertension Lumbar disc disease Non-ST elevation (NSTEMI) myocardial infarction Nonrheumatic aortic (valve) stenosis with insufficiency Peptic ulcer disease Right rotator cuff tear arthropathy Shortness of breath Status post placement of implantable loop recorder (~2004) Home Medications benztropine 1 mg PO TID 10/20/15 [History Last Taken 11/05/20 07:00] clopidogrel 75 mg PO DAILY 10/20/15 [History Last Taken 10/03/18 09:00 75 mg] risperidone 4 mg PO BID 10/20/15 [History Last Taken 10/03/18 09:00 4 mg] tamsulosin 0.4 mg PO QHS 02/01/17 [History Last Taken 10/02/18 21:00 0.4mg] buspirone 10 mg tablet 15 mg PO TID 09/12/18 [History Last Taken 10/03/18 16:00 15 mg] potassium chloride 10 mEq capsule,extended release 10 meq PO DAILY 09/12/18 [History Last Taken 10/03/18 09:00 10 meq] metoprolol tartrate 25 mg tablet 12.5 mg PO BID #30 tab 09/17/18 [Rx Last Taken 11/05/20 07:00] donepezil 10 mg PO QHS 10/03/18 [History Last Taken 10/03/18 09:00 10 mg] fluoxetine 40 mg capsule 20 mg PO DAILY 04/19/20 [History Last Taken Unknown] albuterol sulfate 2.5 mg INHALATION Q4H PRN #180 ml 10/11/20 [Rx Last Taken Unknown] budesonide-formoterol 1 puff INHALATION BID PRN 10/29/20 [History Last Taken Unknown] esomeprazole magnesium 20 mg PO BID 10/29/20 [History Last Taken 11/05/20 07:00] cholecalciferol (vitamin D3) 50 mcg PO DAILY 11/01/20 [History Last Taken Unknown] memantine 5 mg PO BID 11/01/20 [History Last Taken Unknown] montelukast 10 mg PO QHS 11/01/20 [History Last Taken Unknown] pantoprazole 40 mg PO BID 11/01/20 [History Last Taken Unknown] acetaminophen 500 mg capsule 500 mg PO TID PRN cap 12/20/20 [History Last Taken Unknown] warfarin 1 mg tablet 1 mg PO .COMPLEX #45 tab 02/23/21 [Rx Last Taken Unknown] warfarin 6 mg tablet 6 mg PO .COMPLEX #90 tab 02/23/21 [Rx Last Taken Unknown] benralizumab 30 mg/mL subcutaneous syringe 30 mg SC Q8W #1 ml 04/11/21 [Rx Last Taken Unknown] furosemide [Lasix] 40 mg PO DAILY 08/15/21 [History Last Taken Unknown] Allergy/AdvReac Type Severity Reaction Status Date / Time iodine Allergy Other Verified 08/15/21 00:11 contrast dye Allergy Shortness Uncoded 08/15/21 00:11 of breath Family History Father CAD (coronary artery disease) Mother CAD (coronary artery disease) Sister CAD (coronary artery disease) CVA (cerebral vascular accident) Surgical History Abdominal Aortagram (~08/18/13) H/O aortic valve replacement (~09/2004) History of appendectomy History of coronary artery stent placement History of foreign body in respiratory tract History of lumbar spinal fusion (~06/29/14) History of repair of right rotator cuff Presence of aortocoronary bypass graft (~01/2003) Social History Smoking Status: Former smoker quit date: 06/12/04 Tobacco: How many years used: 15 ROS ROS Narrative Constitutional: Denies fever, chills, fatigue, anorexia and change in weight Eyes: Denies blurry vision, change in eye color, change in vision, discharge from eye(s), double vision, erythema, eye pain, loss of vision or other HEENT: Denies abnormal hearing, dysphagia, ear pain, epistaxis, headache(s), hearing loss, nasal congestion, nasal discharge, post nasal drip, sinus pressure, sore throat or other Cardiovascular: Reports chest pain. He denies palpitations. Respiratory/Chest: Reports cough with small clear sputum. Reports shortness of breath. Gastrointestinal: Denies abdominal pain, coffee ground emesis, constipation, diarrhea, dyspepsia, hematemesis, hematochezia, loose stools, melena, nausea, vomiting or other Genitourinary: Denies burning urination, difficulty urinating, dysuria, hematuria, nocturia, urinary frequency, urinary hesitancy, urinary incontinence, urinary urgency or other Musculoskeletal: Denies arthralgias, back pain, joint pain, joint stiffness, joint swelling, myalgias, neck pain or other Neurologic: Denies abnormal gait, abnormal speech, confusion, disequilibrium, dizziness, focal weakness, headache(s), numbness, paresthesias, seizure-like activity, seizures, syncope, tingling, tremor(s) or other Psychiatric: Denies anxiety, depression, homicidal ideation, suicidal ideation or other Endocrinology: Denies change in body appearance, cold intolerance, excessive sweating, heat intolerance, polydipsia, polyuria or other Hematologic/Lymphatic: Denies anemia, easy bleeding, easy bruising, lymphadenopathy or other Integumentary: Denies rashes Allergic/Immunologic: Denies rhinitis, hives, eczema, asthma or other Review of Systems ROS Unobtainable: Denies due to encephalopathy Constitutional Constitutional: Denies fever(s) or weight loss Eyes Eyes: Reports systems reviewed and no addt'l complaints, except as documented ENT HEENT: Reports systems reviewed and no addt'l complaints, except as documented Cardiovascular Cardiovascular: Denies chest pain at rest, chest pain with activity, dyspnea at rest, dyspnea on exertion, edema, palpitations or paroxysmal nocturnal dyspnea Respiratory/Chest Respiratory/Chest: Denies dyspnea on exertion, productive cough, shortness of breath at rest or shortness of breath with exertion Gastrointestinal Gastrointestinal: Denies change in bowel habits, nausea, vomiting or weight changes Genitourinary Genitourinary: Denies difficulty urinating Musculoskeletal Musculoskeletal: Denies joint stiffness or muscle weakness Integumentary Integumentary: Denies lesions Neurologic Neurologic: Denies dizziness or syncope Psychiatric Psychiatric: Denies anxiety Endocrine Endocrinology: Denies excessive sweating or fatigue Hematologic/Lymphatic Hematologic/Lymphatic: Denies anemia Allergic/Immunologic Allergic/Immunologic: Denies seasonal rhinorrhea Physical Exam Const alert, oriented x3 and no apparent distress General Appearance: cooperative HEENT hearing grossly normal bilaterally Head and Scalp: atraumatic Eyes EOMs intact bilaterally Neck General: normal visual inspection Chest inspection of chest normal and palpation of chest normal Resp normal respiratory effort Auscultation: clear to auscultation bilaterally Cardio regular rate, regular rhythm, S1 normal heart sound and S2 normal heart sound Jugular Venous Distention: JVD GI normal to inspection, nondistended, normoactive bowel sounds Extremity normal capillary refill and no pedal edema Peripheral Pulses: Yes pulses 2+ throughout and femoral pulses present Skin no rashes or lesions noted Neuro oriented x3 and CN's II-XII intact bilaterally Psych Appearance: grossly normal and appropriate Risk Stratification Risk Stratification Applicable: No Objective Data Vital Signs: Vital Signs Temp Pulse Resp BP Pulse Ox 98.3 F 88 18 112/66 94 08/15/21 15:50 08/15/21 15:50 08/15/21 15:50 08/15/21 15:50 08/15/21 15:50 Oxygen Flow Rate (L/min) 2 Oxygen Delivery Method Room Air Weight: 260 lb Body Mass Index (BMI) 33.3 Intake & Output: Intake and Output for Last 24 Hours 08/13/21 08/14/21 08/15/21 23:59 23:59 23:59 Intake Total 270.33 / 270.33 Balance 270.33 / 270.33 Lab / Micro Data Result Diagrams: 08/15/21 05:55 08/15/21 05:55 Labs: Laboratory Results - last 24 hr 08/15/21 00:16: WBC 13.4 H, RBC 5.02, Hgb 15.7, Hct 48.0, MCV 95.6 H, MCH 31.3, MCHC 32.7, RDW Std Deviation 47.4 H, RDW Coeff of Adalberto 13.3, Plt Count 273, MPV 9.0, Immature Gran % (Auto) 0.500, Neut % (Auto) 77.7 H, Lymph % (Auto) 16.4 L, [place] % (Auto) 5.2, Eos % (Auto) 0.0, Baso % (Auto) 0.2, Absolute Neuts (auto) 10.4 H, Absolute Lymphs (auto) 2.20, Nucleated RBC % 0 08/15/21 00:16: PT 26.4 H, INR 2.5 08/15/21 00:16: Sodium 140, Potassium 4.1, Chloride 105, Carbon Dioxide 26.0, Anion Gap 9, BUN 19 H, Creatinine 1.17, Estim Creat Clear Calc 74.16, Est GFR (MDRD) Af Amer 81, Est GFR (MDRD) Non-Af 67, BUN/Creatinine Ratio 16.2, Glucose 145 H, Calcium 8.9, Troponin I High Sens 8 08/15/21 00:16: B-Natriuretic Peptide 84.8 08/15/21 00:16: Magnesium 1.8 08/15/21 03:48: Troponin I High Sens 280 H* 08/15/21 05:55: WBC 12.9 H, RBC 4.88, Hgb 15.2, Hct 46.2, MCV 94.7 H, MCH 31.1, MCHC 32.9, RDW Std Deviation 46.2 H, RDW Coeff of Adalberto 13.2, Plt Count 227, MPV 9.1, Immature Gran % (Auto) 0.700, Neut % (Auto) 85.1 H, Lymph % (Auto) 6.4 L, [place] % (Auto) 7.6, Eos % (Auto) 0.0, Baso % (Auto) 0.2, Absolute Neuts (auto) 11.0 H, Absolute Lymphs (auto) 0.82 L, Nucleated RBC % 0 08/15/21 05:55: Sodium 138, Potassium 3.9, Chloride 106, Carbon Dioxide 25.0, Anion Gap 7, BUN 26 H, Creatinine 1.09, Estim Creat Clear Calc 79.60, Est GFR (MDRD) Af Amer 87, Est GFR (MDRD) Non-Af 72, BUN/Creatinine Ratio 23.9 H, Glucose 103, Calcium 9.0, TSH 0.92 08/15/21 05:55: Troponin I High Sens 370 H* Rhythm Strip Rhythm Strip: Wide-complex tachycardia Rate: 156 Ectopy: None Cardiology Labs/Tests 08/15/21 00:16: WBC 13.4 H, RBC 5.02, Hgb 15.7, Hct 48.0, MCV 95.6 H, MCH 31.3, MCHC 32.7, Plt Count 273, MPV 9.0, Immature Gran % (Auto) 0.500, Neut % (Auto) 77.7 H, Lymph % (Auto) 16.4 L, [place] % (Auto) 5.2, Eos % (Auto) 0.0, Baso % (Auto) 0.2, Absolute Neuts (auto) 10.4 H, Nucleated RBC % 0 08/15/21 00:16: PT 26.4 H, INR 2.5 08/15/21 00:16: Sodium 140, Potassium 4.1, Chloride 105, Carbon Dioxide 26.0, Anion Gap 9, BUN 19 H, Creatinine 1.17, Est GFR (MDRD) Af Amer 81, Est GFR (MDRD) Non-Af 67, BUN/Creatinine Ratio 16.2, Glucose 145 H, Calcium 8.9 08/15/21 00:16: B-Natriuretic Peptide 84.8 08/15/21 00:16: Magnesium 1.8 08/15/21 05:55: WBC 12.9 H, RBC 4.88, Hgb 15.2, Hct 46.2, MCV 94.7 H, MCH 31.1, MCHC 32.9, Plt Count 227, MPV 9.1, Immature Gran % (Auto) 0.700, Neut % (Auto) 85.1 H, Lymph % (Auto) 6.4 L, [place] % (Auto) 7.6, Eos % (Auto) 0.0, Baso % (Auto) 0.2, Absolute Neuts (auto) 11.0 H, Nucleated RBC % 0 08/15/21 05:55: Sodium 138, Potassium 3.9, Chloride 106, Carbon Dioxide 25.0, Anion Gap 7, BUN 26 H, Creatinine 1.09, Est GFR (MDRD) Af Amer 87, Est GFR (MDRD) Non-Af 72, BUN/Creatinine Ratio 23.9 H, Glucose 103, Calcium 9.0 Rhythm: EKG: ECHO: Stress Test: Cardiac Cath: PCI: CT Surgery: Holter monitor: EPS: PPM: CXR: Chest CT Scan: Radiography Diagnostic Testing: Radiology Impression Chest X-Ray 08/15/21 00:16 IMPRESSION: No definite acute cardiopulmonary disease. Electronically Signed: Constantino Melendez MD at 1:10 EST Tel , Service support ,
[2021-08-15] MEDS: Metoprolol Tartrate 25 MG Tablet PO (20:49)
[2021-08-15] MEDS: Atorvastatin Calcium 40 MG Tablet PO (20:49)
[2021-08-15] MEDS: Tamsulosin HCl 0.4 MG Capsule PO (20:49)
[2021-08-15] MEDS: Montelukast 10 MG Tablet PO (20:49)
[2021-08-15] MEDS: Donepezil HCl 10 MG Tablet PO (20:50)
[2021-08-15] MEDS: traZODone 50 MG Tablet PO (21:32)
[2021-08-16] VITALS (10 sets, daily range): BP systolic 101–125; BP diastolic 71–81; PULSE 71–92; RESP 14–20; TEMP 36.5–37.2; O2SAT 92–100
[2021-08-16] MEDS: Benztropine Mesylate 0.5 MG TABLET 1 MG PO ×2 (05:19→10:34)
[2021-08-16] MEDS: Aspirin E.C. 81 MG Tablet PO (05:20)
[2021-08-16] MEDS: Clopidogrel Bisulfate 75 MG Tablet PO (05:20)
--- NOTE | 2021-08-16 05:55 | EKG12_ITS ---
Test Reason : AM EKG Blood Pressure : / mmHG Vent. Rate : 077 BPM Atrial Rate : 077 BPM P-R Int : 218 ms QRS Dur : 174 ms QT Int : 448 ms P-R-T Axes : 059 017 139 degrees QTc Int : 506 ms Sinus rhythm with 1st degree A-V block Left bundle branch block Abnormal ECG Confirmed by DMITRY MCLAIN, ALCON ([id number]), newspaper editor managing LLOYD BATISTA ([id number]) on 08/17/2021 12:17:44 PM Referred By: FRANCINE Confirmed By:ALCON ANDRES MD
[2021-08-16] MEDS: Budesonide Respules 0.5 MG/2 ML AMPUL.NEB. INHALATION (07:06)
[2021-08-16] MEDS: Albuterol 2.5 MG/3 ML VIAL.NEB. INHALATION ×2 (07:06→13:15)
--- NOTE | 2021-08-16 08:43 | NURSING ---
Off floor for stress test.
[2021-08-16 08:45] LABS: Absolute Lymphocyte Count 0.87 X10^3/uL (0.83-4.51); Absolute Neutrophil Count 10.2 X10^3/uL (2.0-7.7); Basophil# 0.01 X10^3/uL; Basophil% 0.1 % (0-1); Hematocrit 40.9 % (40-54); Hemoglobin 13.5 g/dL (13.0-16.5); Lymphocyte # 0.87 X10^3/ul (0.83-4.51); Lymphocyte % 7.1 % (19-41); Mean Corpuscular Hgb 31.7 pg (27.0-32.0); Mean Platelet Vol. 9.3 fl (6.2-12.0); Monocyte# 1.07 X10^3/uL; Monocyte% 8.7 % (0-10); NRBC Flagged by Analyzer 0 % (0-5); Neutrophil # 10.22 X10^3/uL (2.7-7.7); Neutrophil % 83.6 % (47-70); Platelet Count 203 K/mm3 (150-450); RBC Distribution Width CV 13.7 % (11.6-14.6); RBC Distribution Width SD 48.1 fl (35.1-43.9); Red Blood Count 4.26 M/mm3 (4.6-6.2); White Blood Count 12.2 K/mm3 (4.4-11.0)
[2021-08-16 08:51] LABS: Prothrombin Time (Protime)PT. 30.7 SECONDS (11.7-14.9)
[2021-08-16 09:32] LABS: ALB/GLOB Ratio 0.7 RATIO (0.9-2.4); AST(SGOT) 21 U/L (15-37); Alanine Aminotransfer ALT/SGPT 19 U/L (16-61); Albumin, Serum 2.8 g/dL (3.2-5.0); Alkaline Phosphatase 115 U/L (45-117); Anion Gap 7 (5-15); BUN 14 mg/dL (7-18); BUN/Creat Ratio 18.4 RATIO (10-20); Calcium,Total 8.9 mg/dL (8.5-10.1); Chloride 104 mmol/L (98-107); Creatinine, Serum 0.76 mg/dL (0.70-1.30); EST Glomerular Filtration Rate 110 mL/min (>60); Est Glom Filt Rate - Afr Amer 133 mL/min (>60); Estimated Creatinine Clearance 114.17 ml/min; Globulin 3.8 g/dL (2.2-4.2); Glucose 78 mg/dL (74-106); Potassium 4.1 mmol/L (3.5-5.1); Protein, Total 6.6 g/dL (6.4-8.2); Sodium Level 135 mmol/L (136-145)
[2021-08-16] MEDS: Cholecalciferol (VIT D3) 25 MCG TABLET (1,000 UNITS) 50 MCG PO (10:32)
[2021-08-16] MEDS: Metoprolol Tartrate 25 MG Tablet PO (10:32)
[2021-08-16] MEDS: Potassium Chloride Oral Tablet 10 MEQ PO (10:33)
[2021-08-16] MEDS: FLUoxetine 20 MG Capsule PO (10:34)
[2021-08-16] MEDS: Pantoprazole Sodium 40 MG Tablet PO (10:34)
[2021-08-16] MEDS: Memantine Hydrochloride 5 MG Tablet PO (10:34)
[2021-08-16] MEDS: Furosemide 40 MG Tablet PO (10:34)
[2021-08-16] MEDS: RisperiDONE 2 MG Tablet 4 MG PO (10:34)
--- NOTE | 2021-08-16 13:16 | STRESSREP ---
Stress Test Report Pharmacologic myocardial perfusion stress test. 65-year-old man with a history of coronary artery disease status post non-ST elevation myocardial infarction. Stress protocol: Resting EKG demonstrates normal sinus rhythm with a rate of 104 bpm and a left bundle branch block pattern. Resting blood pressure is 122/70 mmHg. 0.4 mg of regadenoson was infused per usual protocol followed by rapid intravenous saline flush injection continuous EKG monitoring was performed. The maximum heart rate attained was 116 bpm which was 74% of max impact at heart rate the maximum workload was 1 metabolic equivalent. At rest there were no ST or T wave changes noted to suggest abnormal flow reserve a left bundle branch block pattern was noted. Myocardial perfusion protocol. 14.7 mCi of technetium 99m sestamibi was injected at rest. 0.4 mg of regadenoson was infused per usual protocol at peak infusion 44.7 mCi of technetium 99m sestamibi was injected stress images were obtained stress and rest images were reconstructed and compared in the short axis vertical long horizontal long axis. Gated images were also obtained to Perfusion SPECT analysis: Review of the stress images demonstrated nondilated cardiac silhouette size. There is a small to medium sized area noted in the mid anterior wall with reduced perfusion on the stress images. The inferior wall lateral wall and septum appear to be well perfused. On the resting images there is improvement in the perfusion abnormality in the mid anterior wall suggesting a moderate amount of mid anterior ischemia. Gated SPECT analysis: The gated ejection fraction is approximately 47%. Conclusion: Abnormal pharmacologic myocardial perfusion stress test with mid anterior ischemia mild to moderate. Left bundle branch block noted. Mild reduction in left ventricular function.
--- NOTE | 2021-08-16 13:19 | PN.CARD_ITS ---
Subjective Subjective Patient seen and evaluated. Appears to be doing well. No complaints. Objective Data Vital Signs: Vital Signs Temp Pulse Resp BP Pulse Ox 98.3 F 87 20 H 122/74 H 92 08/16/21 07:54 08/16/21 10:32 08/16/21 07:57 08/16/21 10:32 08/16/21 07:54 Oxygen Flow Rate (L/min) 2 Oxygen Delivery Method Room Air Weight: 260 lb Body Mass Index (BMI) 33.3 Intake & Output: Intake and Output for Last 24 Hours 08/14/21 08/15/21 08/16/21 23:59 23:59 23:59 Intake Total 770.33 / 770.33 330 / 330 Balance 770.33 / 770.33 330 / 330 Lab / Micro Data Result Diagrams: 08/16/21 06:20 08/16/21 06:20 Labs: Laboratory Results - last 24 hr 08/16/21 06:20: PT 30.7 H, INR 3.0 08/16/21 06:20: WBC 12.2 H, RBC 4.26 L, Hgb 13.5, Hct 40.9, MCV 96.0 H, MCH 31.7, MCHC 33.0, RDW Std Deviation 48.1 H, RDW Coeff of Adalberto 13.7, Plt Count 203, MPV 9.3, Immature Gran % (Auto) 0.500, Neut % (Auto) 83.6 H, Lymph % (Auto) 7.1 L, [place] % (Auto) 8.7, Eos % (Auto) 0.0, Baso % (Auto) 0.1, Absolute Neuts (auto) 10.2 H, Absolute Lymphs (auto) 0.87, Nucleated RBC % 0 08/16/21 06:20: Sodium 135 L, Potassium 4.1, Chloride 104, Carbon Dioxide 24.0, Anion Gap 7, BUN 14, Creatinine 0.76, Estim Creat Clear Calc 114.17, Est GFR (MDRD) Af Amer 133, Est GFR (MDRD) Non-Af 110, BUN/Creatinine Ratio 18.4, Gluc ose 78, Calcium 8.9, Total Bilirubin 0.90, AST 21, ALT 19, Alkaline Phosphatase 115, Total Protein 6.6, Albumin 2.8 L, Globulin 3.8, Albumin/Globulin Ratio 0.7 L Rhythm Strip Rhythm Strip: Wide-complex tachycardia Rate: 156 Ectopy: None Cardiology Labs/Tests 08/16/21 06:20: PT 30.7 H, INR 3.0 08/16/21 06:20: WBC 12.2 H, RBC 4.26 L, Hgb 13.5, Hct 40.9, MCV 96.0 H, MCH 31.7, MCHC 33.0, Plt Count 203, MPV 9.3, Immature Gran % (Auto) 0.500, Neut % (Auto) 83.6 H, Lymph % (Auto) 7.1 L, [place] % (Auto) 8.7, Eos % (Auto) 0.0, Baso % (Auto) 0.1, Absolute Neuts (auto) 10.2 H, Nucleated RBC % 0 08/16/21 06:20: Sodium 135 L, Potassium 4.1, Chloride 104, Carbon Dioxide 24.0, Anion Gap 7, BUN 14, Creatinine 0.76, Est GFR (MDRD) Af Amer 133, Est GFR (MDRD) Non-Af 110, BUN/Creatinine Ratio 18.4, Glucose 78, Calcium 8.9, Total Bilirubin 0.90 Rhythm: EKG: ECHO: Stress Test: Cardiac Cath: PCI: CT Surgery: Holter monitor: EPS: PPM: CXR: Chest CT Scan: Physical Exam Const alert, oriented x3 and no apparent distress General Appearance: cooperative HEENT hearing grossly normal bilaterally Head and Scalp: atraumatic Eyes EOMs intact bilaterally Neck General: normal visual inspection Chest inspection of chest normal and palpation of chest normal Resp normal respiratory effort Auscultation: clear to auscultation bilaterally Cardio regular rate, regular rhythm, S1 normal heart sound and S2 normal heart sound Jugular Venous Distention: JVD GI normal to inspection, nondistended, normoactive bowel sounds Extremity normal capillary refill and no pedal edema Peripheral Pulses: Yes pulses 2+ throughout and femoral pulses present Skin no rashes or lesions noted Neuro oriented x3 and CN's II-XII intact bilaterally Psych Appearance: grossly normal and appropriate Assessment & Plan Assessment/Plan (1) NSTEMI, initial episode of care: PLAN: He does have evidence of elevated high-sensitivity troponin. His chest pain was rather atypical. My recommendation at this time would be to maximize his beta-jd therapy as well as continue him on the clopidogrel. He did undergo a stress test which demonstrated moderate amount of ischemia in a small to medium size zone. He is stable and I would recommend that with the current bed situation admits the Covid crisis and the fact that he is stable we would maximally medically manage him for now and arrange an outpatient cardiac catheterization. Would recommend increasing his beta-jd to metoprolol 50 mg twice a day Continue clopidogrel Continue aspirin Follow-up in my office in a week. Arranged. (2) Atrial fibrillation with rapid ventricular response: PLAN: He did present with atrial fibrillation with a rapid ventricular response rate with a left bundle branch block pattern. He appears to have converted back to sinus rhythm. * He will continue with the anticoagulation and I would recommend increasing his beta-jd to metoprolol 50 mg twice a day. (3) Atherosclerosis of coronary artery of [place] heart without angina pectoris: QUALIFIERS: Coronary Disease-Associated Artery/Lesion type: [place] artery Qualified Code(s): I25.10 - Atherosclerotic heart disease of [place] coronary artery without angina pectoris PLAN: He does have a history of coronary artery disease status post pr evious angioplasty and stenting and status post coronary bypass surgery. He has had multiple procedures in the past. His MEDINA to the LAD was not very functional. Would attempt to get the films to evaluate before pursuing a cardiac catheterization (4) H/O aortic valve replacement: PLAN: He does have a history of aortic valve replacement. His last echoc ardiogram was from April of this year with preserved ejection fraction with some segmental wall motion abnormalities. His aortic valve however appears to be normally functioning. He will continue with antibiotic prophylaxis. (5) Hypertension: QUALIFIERS: Hypertension type: essential hypertension Qualified Code(s): I10 - Essential (primary) hypertension PLAN: He does have a history of hypertension which appears to be under good control at this time. I would recommend increasing his beta-jd. (6) Presence of aortocoronary bypass graft: PLAN: He is status post coronary bypass surgery as noted above. His anatomy is described in the HPI. (7) Hyperlipidemia: QUALIFIERS: Hyperlipidemia type: unspecified Qualified Code(s): E78.5 - Hyperlipidemia, unspecified PLAN: He will continue with high intensity statin.
--- NOTE | 2021-08-16 15:15 | PCM.DC.SUM ---
Providers Date of Admission: 08/15/21 Primary Care Physician: Dr. Bartolo Mitchell DO Consultations 08/15/21 04:45 Consult: Cardiology Routine Consulting Provider: Abisai Ko Reason for Consult: Elevated troponin EMERGENT Consult: No MD Notified: Yes Date Notified: 08/15/21 Time Notified: 04:45 Method of Notification: Text Reason For Visit: A FIB WITH RVR Diagnosis Discharge Diagnosis (1) NSTEMI, initial episode of care: Status: Acute Code(s): I21.4 - Non-ST elevation (NSTEMI) myocardial infarction (2) Atrial fibrillation with rapid ventricular response: Status: Acute Code(s): I48.91 - Unspecified atrial fibrillation (3) Atherosclerosis of coronary artery of [place] heart without angina pectoris: Status: Chronic Code(s): I25.10 - Atherosclerotic heart disease of [place] coronary artery without angina pectoris Qualifiers: Coronary Disease-Associated Artery/Lesion type: [place] artery Qualified Code(s): I25.10 - Atherosclerotic heart disease of [place] coronary artery without angina pectoris (4) H/O aortic valve replacement: Status: Chronic Code(s): Z95.2 - Presence of prosthetic heart valve (5) Hypertension: Status: Chronic Code(s): I10 - Essential (primary) hypertension Qualifiers: Hypertension type: essential hypertension Qualified Code(s): I10 - Essential (primary) hypertension (6) Presence of aortocoronary bypass graft: Status: Chronic Code(s): Z95.1 - Presence of aortocoronary bypass graft (7) Hyperlipidemia: Status: Chronic Code(s): E78.5 - Hyperlipidemia, unspecified Qualifiers: Hyperlipidemia type: unspecified Qualified Code(s): E78.5 - Hyperlipidemia, unspecified Medications at Discharge Home Medications benztropine 1 mg PO TID 10/20/15 clopidogrel 75 mg PO DAILY 10/20/15 risperidone 4 mg PO BID 10/20/15 tamsulosin 0.4 mg PO QHS 02/01/17 buspirone 10 mg tablet 15 mg PO TID 09/12/18 potassium chloride 10 mEq capsule,extended release 10 meq PO DAILY 09/12/18 donepezil 10 mg PO QHS 10/03/18 fluoxetine 40 mg capsule 20 mg PO DAILY 04/19/20 albuterol sulfate 2.5 mg INHALATION Q4H PRN #180 ml 10/11/20 budesonide-formoterol 1 puff INHALATION BID PRN 10/29/20 esomeprazole magnesium 20 mg PO BID 10/29/20 cholecalciferol (vitamin D3) 50 mcg PO DAILY 11/01/20 memantine 5 mg PO BID 11/01/20 montelukast 10 mg PO QHS 11/01/20 pantoprazole 40 mg PO BID 11/01/20 acetaminophen 500 mg capsule 500 mg PO TID PRN cap 12/20/20 warfarin 1 mg tablet 1 mg PO .COMPLEX #45 tab 02/23/21 warfarin 6 mg tablet 6 mg PO .COMPLEX #90 tab 02/23/21 benralizumab 30 mg/mL subcutaneous syringe 30 mg SC Q8W #1 ml 04/11/21 furosemide [Lasix] 40 mg PO DAILY 08/15/21 trazodone 50 mg PO QHS 08/15/21 atorvastatin 40 mg PO QHS #30 tab 08/16/21 metoprolol tartrate 50 mg PO BID #60 tab 08/16/21 Hospital Course Operations None Procedures Cardiac catheterization and Stress test Summary of Care Provided Minutes Spent on Discharge: 45 Hospital Course: Patient is a 65-year-old male with an extensive past medical history as outlined was admitted to the ED on 08/15/2021 with a complaint of shortness of breath and pain under his left breast as well as some generalized shaking. He was found to be in A. fib with RVR on admission and admitted to be managed for A. fib with RVR. He was started on Cardizem drip after he received a Cardizem bolus. Patient's troponins trended up so cardiology was consulted. He had a stress test on 08/16 2021 which showed evidence of mild to moderate anterior ischemia. Patient was weaned off of Cardizem and transition to oral medication. Per discussion with cardiology, patient could follow-up on outpatient basis for outpatient cardiac cath. He remained stable and was discharged home on 08/16/2021 and is to follow-up with cardiology on outpatient basis within a week for cardiac cath. Patient seen and examined prior to discharge. He had no complaints. Review of systems otherwise negative. Labs and vitals reviewed. Home medication reviewed and reconciled. Of note, metoprolol was increased from 12.5 mg twice daily to 50 mg twice daily. Physical Exam Const alert, oriented x3 and no apparent distress General Appearance: cooperative and comfortable Exam Limitations: no limitations HEENT normocephalic, head/scalp atraumatic and moist oral mucous membranes Eyes PERRL, EOMs intact bilaterally and conjunctivae normal Neck no lymphadenopathy Resp normal respiratory effort, no retractions, no use of accessory muscles and clear to auscultation bilaterally Cardio S1 normal heart sound, S2 normal heart sound and no murmurs Cardio Narrative: afib, rate controlled GI normal to inspection, nondistended, normoactive bowel sounds, soft to palpation, non-tender, non-distended and hepatosplenomegaly Extremity normal to inspection, full ROM and no clubbing, cyanosis or edema Skin no rashes or lesions noted Neuro oriented x3, CN's II-XII intact bilaterally and moves all extremities Sensorium / Orientation: awake and alert Psych affect normal Weight / BMI Weight Weight: 260 lb Body Mass Index (BMI) 33.3 ABG / Lab / Microbiology Data Result Diagrams: 08/16/21 06:20 08/16/21 06:20 Laboratory: Laboratory Results - last 24 hr 08/16/21 06:20: PT 30.7 H, INR 3.0 08/16/21 06:20: WBC 12.2 H, RBC 4.26 L, Hgb 13.5, Hct 40.9, MCV 96.0 H, MCH 31.7, MCHC 33.0, RDW Std Deviation 48.1 H, RDW Coeff of Adalberto 13.7, Plt Count 203, MPV 9.3, Immature Gran % (Auto) 0.500, Neut % (Auto) 83.6 H, Lymph % (Auto) 7.1 L, [place] % (Auto) 8.7, Eos % (Auto) 0.0, Baso % (Auto) 0.1, Absolute Neuts (auto) 10.2 H, Absolute Lymphs (auto) 0.87, Nucleated RBC % 0 08/16/21 06:20: Sodium 135 L, Potassium 4.1, Chloride 104, Carbon Dioxide 24.0, Anion Gap 7, BUN 14, Creatinine 0.76, Estim Creat Clear Calc 114.17, Est GFR (MDRD) Af Amer 133, Est GFR (MDRD) Non-Af 110, BUN/Creatinine Ratio 18.4, Glucose 78, Calcium 8.9, Total Bilirubin 0.90, AST 21, ALT 19, Alkaline Phosphatase 115, Total Protein 6.6, Albumin 2.8 L, Globulin 3.8, Albumin/Globulin Ratio 0.7 L D/C Instructions Discharge Diet: Low fat / Low cholesterol Discharge Activity: Return to Normal Activity Weight Bearing Status: Weight bearing as tolerated Call your doctor if you observe: Fever of 101 or Higher, Shortness of breath, Dizziness, Swelling in the ankles, Chest pain and Increased palpitations (irregular heartbeat) Meaningful Use Info Meaningful Use Diagnoses (Choose all that apply): None applicable Discharge Plan Admission Admit Date/Time: 08/15/21 02:19 Primary Reason for Your Visit: afib wtih RVR Attending Provider: Magali Rich Primary Care Provider: Bartolo Mitchell Consulting Providers: Abisai Ko Discharge Orders/Prescriptions Prescriptions: New atorvastatin 40 mg Tablet 40 mg PO QHS Qty: 30 RF: 1 metoprolol tartrate 50 mg Tablet 50 mg PO BID Qty: 60 RF: 1 Continued potassium chloride 10 mEq capsule, extended release 10 meq PO DAILY RF: 0 buspirone 10 mg tablet 15 mg PO TID RF: 0 fluoxetine 40 mg capsule 20 mg PO DAILY RF: 0 clopidogrel 75 MG tablet 75 mg PO DAILY RF: 0 risperidone 2 MG tablet 4 mg PO BID RF: 0 benztropine 2 MG tablet 1 mg PO TID RF: 0 tamsulosin 0.4 MG capsule,extended release 24hr 0.4 mg PO QHS RF: 0 donepezil 10 MG tablet 10 mg PO QHS RF: 0 budesonide-formoterol 1 INHALER inhaler 1 puff INHALATION BID PRN (Reason: COPD) RF: 0 esomeprazole magnesium 20 MG tablet,delayed release (DR/EC) 20 mg PO BID RF: 0 pantoprazole 40 MG tablet 40 mg PO BID RF: 0 montelukast 10 MG tablet 10 mg PO QHS RF: 0 memantine 5 MG tablet 5 mg PO BID RF: 0 cholecalciferol (vitamin D3) 50 MCG tablet 50 mcg PO DAILY RF: 0 furosemide [Lasix] 40 mg Tablet 40 mg PO DAILY RF: 0 trazodone 50 mg Tablet 50 mg PO QHS RF: 0 albuterol sulfate 2.5 mg /3 mL (0.083 %) solution for nebulization 2.5 mg INHALATION Q4H PRN (Reason: Sob &/Or Wheezing) Qty: 180 RF: 3 acetaminophen 500 mg capsule 500 mg PO TID PRN (Reason: for arm pain per PCP) RF: 0 warfarin 1 mg tablet 1 mg PO .COMPLEX Qty: 45 RF: 3 warfarin 6 mg tablet 6 mg PO .COMPLEX Qty: 90 RF: 3 Fasenra 30 mg/mL syringe 30 mg SC Q8W Qty: 1 RF: 11 Discontinued metoprolol tartrate 25 mg tablet 12.5 mg PO BID Qty: 30 RF: 11 Referrals / Follow Up: Oscar Arvizu MD [STAFF PHYSICIAN] - 08/25/21 9:30 am Bartolo Mitchell DO [Primary Care Provider] - Within 2 Weeks Disposition Disposition (needs filled in before D/C Order can be placed): Home, Self Care Charges/Coding Visit Charges Inpatient E&M: 05215 Disch Hosp
--- NOTE | 2021-08-16 15:39 | CASEMGMT ---
Pt not being placed on any new meds at discharge and had stated no concerns with going home at discharge. Delfino SANTILLAN CM
== END 2021-08-16 15:56 | disposition home or self-care (01) | DRG 281 ==
LOC: ED 02:23 → PCU 03:00
PROVIDERS: Admitting Provider Hospitalist; Emergency Provider Emergency Medicine; PCP Preventive Medicine Occupational Medicine; Visit Provider Student in an Organized Health Care Education/Training Program
DX: I48.91 Unspecified atrial fibrillation (principal); I21.4 Non-ST elevation (NSTEMI) myocardial infarction; Q23.1 Congenital insufficiency of aortic valve; I25.10 Atherosclerotic heart disease of native coronary artery without angina pectoris; J44.9 Chronic obstructive pulmonary disease, unspecified; I35.2 Nonrheumatic aortic (valve) stenosis with insufficiency; F03.90 Unspecified dementia, unspecified severity, without behavioral disturbance, psychotic disturbance, mood disturbance, and anxiety; I10 Essential (primary) hypertension; E78.5 Hyperlipidemia, unspecified; K21.9 Gastro-esophageal reflux disease without esophagitis; F31.9 Bipolar disorder, unspecified; G47.33 Obstructive sleep apnea (adult) (pediatric); E66.9 Obesity, unspecified; Z79.02 Long term (current) use of antithrombotics/antiplatelets; Z79.01 Long term (current) use of anticoagulants; Z79.899 Other long term (current) drug therapy; I25.2 Old myocardial infarction; Z86.73 Personal history of transient ischemic attack (TIA), and cerebral infarction without residual deficits; Z87.891 Personal history of nicotine dependence; Z95.2 Presence of prosthetic heart valve; Z95.1 Presence of aortocoronary bypass graft
CPT/HCPCS: 36415; 71045; 78452; 80048; 80053; 83735; 83880; 84443; 84484; 85025; 85610; 93005; 93017; 94640; 99285; A9500; A4216; J2785

== ENCOUNTER 2021-09-12 13:04 | Outpatient (CLI) | payer MEDICARE, SELFPAY | END 2021-09-12 23:59 | disposition short-term general hospital (02) | LOC: PSN 13:06 | PROVIDERS: PCP Preventive Medicine Occupational Medicine; Referring Provider Nurse Practitioner Family; Visit Provider Nurse Practitioner Family | DX: Z01.818 Encounter for other preprocedural examination (principal) | CPT/HCPCS: 87635; C9803; U0003; U0005 ==

== ENCOUNTER 2021-09-27 06:27 | Day surgery (SDC) | payer MEDICARE, SELFPAY ==
[2021-09-08 08:29] VITALS: BMI 33.0
--- NOTE | 2021-09-27 08:52 | CL.D_ITS ---
Patient Name: PASHA DENISE Study Date: 09/27/2021 Performing: Oscar Arvizu MD Ht: 74.01 inches 188 cm : 1955 Wt: 257.94 lbs 117 kg Age: 65 Gender: male BSA: 2.42 PROCEDURE(S) PERFORMED DC04-([id number])LHC/COR/CABG CLINICAL PROFILE AND INDICATIONS Indications: Stable Known CAD Heart Failure: None Stress/Imaging Date: 08/26/2021 CAD Presentations: Symptom unlikely to be ischemic. CONCLUSIONS Coronary disease noted with a patent MEDINA to the LAD and right coronary artery previously stented whi ch is patent with moderate in-stent stenosis. The saphenous vein graft to the posterior descending artery and diagonal vessel which was previously stented have occluded RECOMMENDATIONS Medical therapy DESCRIPTION OF PROCEDURE The patient arrived to the procedure lab. The risks and benefits of the procedure as well as a full d escription of our services here and current unavailability of surgical backup were fully explained to the patient and/or their significant other prior to the catheterization. The Timeout was completed, verifying the correct patient and procedure. The patient's procedural site was prepped and draped in the usual fashion. Local anesthetic was given subcutaneously to right groin region with Lidocaine 2%. Using a modified Seldinger technique, arterial access was obtained via the right femoral artery, a 5 Fr sheath was inserted. Left Coronary Artery selective angiography was performed in multiple views u sing a 5 Fr. JL4 catheter. Right Coronary Artery selective angiography was then performed in multiple views using a 5 Fr. 3DRC (Sam) catheter. Saphenous Vein graft to the RPDA selective angiography was performed in multiple views using a 5 Fr. 3DRC (Sam) catheter, occluded. Left internal mammary artery graft to the LAD selective angiography was performed in multiple views using a 5 Fr. 3DRC (Sam) catheter. Left internal mammary artery graft to the LAD selective angiography was performed in multiple views using a 5 Fr. IM catheter. Right Coronary Artery selective angiograp hy was then performed in multiple views using a 5 Fr. AR MOD catheter. Saphenous Vein graft to the DI AG 1 selective angiography was performed in multiple views using a 5 Fr. AL 2 catheter, occluded. Sap henous Vein graft to the OM 1 selective angiography was performed in multiple views using a 5 Fr. AL 2 catheter.The arterial sheath was pulled and manual compression applied until hemostasis is achieved . CORONARY ANGIOGRAPHY DOMINANCE: Right Dominant LEFT HEART ASSESSMENT Left Ventricular Ejection Fraction: by LV Gram 50 % Normal Left Ventricular systolic function LEFT MAIN: Mild calcification, No significant disease noted LEFT ANTERIOR DESCENDING ARTERY: MID LAD: is occluded CIRCUMFLEX ARTERY: MID CIRC: is occluded RIGHT CORONARY ARTERY: This vessel is large dominant previously stented with a proximal focal eccentr ic 60% stenotic lesion within the stent. The mid segment has a stent which is patent and the distal vessel has luminal irregularities of up to 40%. GRAFTS: MEDINA graft to the Mid LAD is patent Saphenous Vein graft to the 1st Diagonal is totally occluded Saphenous Vein graft to the RPDA is totally occluded Saphenous Vein graft to the 1st OM This is patent and retrogradely fills the distal circumflex artery with some stenosis in the retrograde portion. VALVE FINDINGS: Metallic prosthetic aortic valve functioning well COMPLICATIONS No Complications PROCEDURE MEDICATIONS Versed 1 mg IV Fentanyl 50 mcg IV Versed 1 mg IV Oxygen: 2 L/min via nasal cannula Benadryl 25 mg IV @ 09/27/2021 07:37:54 Solu-cortef 100 mg IV 09/27/2021 07:38:00 SUMMARY OF HEMODYNAMIC DATA Time AIR REST ECG 07:00:51 AO 132/70 (95) SA 07:59:04 Signed By Oscar Arvizu MD On 09/27/2021 08:51:38 Oscar Arvizu MD
== END 2021-09-27 23:59 | disposition home or self-care (01) ==
PROVIDERS: PCP Preventive Medicine Occupational Medicine; Referring Provider Internal Medicine Cardiovascular Disease; Visit Provider Internal Medicine Cardiovascular Disease
DX: I25.810 Atherosclerosis of coronary artery bypass graft(s) without angina pectoris (principal); F31.9 Bipolar disorder, unspecified; I10 Essential (primary) hypertension; E78.5 Hyperlipidemia, unspecified; I25.5 Ischemic cardiomyopathy; K21.9 Gastro-esophageal reflux disease without esophagitis; F32.A Depression, unspecified; I25.2 Old myocardial infarction; E78.00 Pure hypercholesterolemia, unspecified; I35.2 Nonrheumatic aortic (valve) stenosis with insufficiency; Z87.11 Personal history of peptic ulcer disease; Z95.818 Presence of other cardiac implants and grafts; Z86.73 Personal history of transient ischemic attack (TIA), and cerebral infarction without residual deficits; Z79.02 Long term (current) use of antithrombotics/antiplatelets; Z79.899 Other long term (current) drug therapy; Z79.82 Long term (current) use of aspirin; Z87.891 Personal history of nicotine dependence
CPT/HCPCS: 93459; 99152; 99153; J7040; A4216; C1769; Q9967

== ENCOUNTER 2021-10-03 11:43 | Outpatient (RCR) | payer MEDICARE, SELFPAY ==
[2021-02-16 09:07] VITALS: BMI 34.7
[2021-09-06 14:29] LABS: Prothrombin Time (Protime)PT. 36.3 SECONDS (11.7-14.9)
[2021-09-06 14:30] LABS: International Normalized Ratio 3.8
[2021-09-16 11:45] LABS: Absolute Lymphocyte Count 2.08 X10^3/uL (0.83-4.51); Absolute Neutrophil Count 6.3 X10^3/uL (2.0-7.7); Basophil# 0.01 X10^3/uL; Basophil% 0.1 % (0-1); Hemoglobin 14.4 g/dL (13.0-16.5); Lymphocyte # 2.08 X10^3/ul (0.83-4.51); Lymphocyte % 22.2 % (19-41); Mean Corp Hgb Conc 32.7 g/dL (32-36); Mean Corpuscular Volume 94.8 fL (80-94); Monocyte# 0.98 X10^3/uL; Monocyte% 10.4 % (0-10); NRBC Flagged by Analyzer 0 % (0-5); Neutrophil # 6.28 X10^3/uL (2.7-7.7); Neutrophil % 66.9 % (47-70); Platelet Count 268 K/mm3 (150-450); RBC Distribution Width CV 14.3 % (11.6-14.6); RBC Distribution Width SD 49.8 fl (35.1-43.9); Red Blood Count 4.64 M/mm3 (4.6-6.2); White Blood Count 9.4 K/mm3 (4.4-11.0)
[2021-09-16 11:48] LABS: International Normalized Ratio 2.5; Prothrombin Time (Protime)PT. 25.8 SECONDS (11.7-14.9)
[2021-09-16 12:08] LABS: Anion Gap 3 (5-15); BUN 11 mg/dL (7-18); BUN/Creat Ratio 12.4 RATIO (10-20); Calcium,Total 8.4 mg/dL (8.5-10.1); Chloride 109 mmol/L (98-107); Creatinine, Serum 0.89 mg/dL (0.70-1.30); EST Glomerular Filtration Rate 92 mL/min (>60); Est Glom Filt Rate - Afr Amer 111 mL/min (>60); Glucose 117 mg/dL (74-106); Potassium 4.2 mmol/L (3.5-5.1); Sodium Level 136 mmol/L (136-145)
[2021-09-20 13:58] LABS: International Normalized Ratio 2.8; Prothrombin Time (Protime)PT. 28.5 SECONDS (11.7-14.9)
[2021-09-22 12:09] LABS: International Normalized Ratio 3.5; Prothrombin Time (Protime)PT. 34.5 SECONDS (11.7-14.9)
[2021-09-26 11:57] LABS: International Normalized Ratio 1.3; Prothrombin Time (Protime)PT. 15.6 SECONDS (11.7-14.9)
[2021-09-30 15:05] LABS: International Normalized Ratio 1.2; Prothrombin Time (Protime)PT. 14.2 SECONDS (11.7-14.9)
[2021-10-03 13:51] LABS: International Normalized Ratio 1.5
== END 2021-10-03 18:00 | disposition home or self-care (01) ==
LOC: LAB 11:43
PROVIDERS: Internal Medicine Cardiovascular Disease; Family Provider Preventive Medicine Occupational Medicine; PCP Preventive Medicine Occupational Medicine; Referring Provider Specialist; Visit Provider Specialist
DX: Z95.2 Presence of prosthetic heart valve (principal); Z79.01 Long term (current) use of anticoagulants
CPT/HCPCS: 36415; 80048; 85025; 85610

== ENCOUNTER 2021-10-12 12:50 | Outpatient (CLI) | payer MEDICARE, SELFPAY ==
--- NOTE | 2021-10-12 12:52 | CT_ITS ---
STUDY: CT RIGHT SHOULDER REASON FOR EXAM: Right glenohumeral osteoarthritis, surgical planning. TECHNIQUE: The patient was scanned in a multi detector CT scanner. High resolution transaxial imaging was performed without the administration of intravenous contrast material. Sagittal and coronal images were reconstructed. Individualized dose optimization techniques were used for this CT. COMPARISON: None. FINDINGS: There is glenohumeral arthrosis with joint space narrowing and pressure erosion of the posterior glenoid (axial images 21-24). There is an anchor in the anterior aspect of the greater tuberosity and a subchondral cyst in the greater tuberosity (sagittal reconstruction 26). There is superior migration of the humeral head with pressure erosion of the inferior acromion (coronal reconstruction 45) consistent with rotator cuff tear. There is a small ossicle at the anterior aspect of the acromium (axial images 8, 9). Normal visualized lateral clavicle. There is acromioclavicular arthrosis (coronal reconstruction 51). There is a Type II morphology (curved), with a neutral orientation. There is atrophy with partial fat replacement of the supraspinatus and subscapularis muscles and to a lesser extent the infraspinatus muscle (sagittal reconstruction 46). CT/Extremity Upper without Contra IMPRESSION: Glenohumeral osteoarthritis. Superior migration of the humeral head secondary to rotator cuff tear. Atrophy of the supraspinatus, subscapularis and infraspinatus muscles. Acromioclavicular arthrosis. Electronically Signed: Isaac Chaudhary MD at 14:52 EST ,
== END 2021-10-12 23:59 | disposition home or self-care (01) ==
LOC: RAD 12:51
PROVIDERS: PCP Preventive Medicine Occupational Medicine; Referring Provider Orthopaedic Surgery; Visit Provider Orthopaedic Surgery
DX: M75.41 Impingement syndrome of right shoulder (principal); E66.9 Obesity, unspecified
CPT/HCPCS: 73200

== ENCOUNTER 2021-10-20 09:11 | Outpatient (RCR) | payer MEDICARE, SELFPAY ==
[2021-10-04 02:16] VITALS: BMI 34.7
[2021-10-10 13:54] LABS: International Normalized Ratio 2.1; Prothrombin Time (Protime)PT. 22.4 SECONDS (11.7-14.9)
[2021-10-13 10:40] LABS: International Normalized Ratio 2.6; Prothrombin Time (Protime)PT. 26.9 SECONDS (11.7-14.9)
[2021-10-20 10:06] LABS: International Normalized Ratio 2.4; Prothrombin Time (Protime)PT. 25.4 SECONDS (11.7-14.9)
== END 2021-10-20 23:59 | disposition home or self-care (01) ==
LOC: LAB 09:11
PROVIDERS: Family Provider Preventive Medicine Occupational Medicine; PCP Preventive Medicine Occupational Medicine; Referring Provider Specialist; Visit Provider Specialist
DX: Z95.2 Presence of prosthetic heart valve (principal); Z79.01 Long term (current) use of anticoagulants
CPT/HCPCS: 36415; 85610

== ENCOUNTER 2021-11-25 13:17 | Outpatient (RCR) | payer MEDICARE, SELFPAY ==
[2021-11-01 10:25] VITALS: BMI 34.7
[2021-11-04 12:45] LABS: International Normalized Ratio 2.8; Prothrombin Time (Protime)PT. 28.7 SECONDS (11.7-14.9)
[2021-11-04 13:13] LABS: AST(SGOT) 19 U/L (15-37); Alanine Aminotransfer ALT/SGPT 28 U/L (16-61); Albumin, Serum 3.2 g/dL (3.2-5.0); Alkaline Phosphatase 150 U/L (45-117); Bilirubin, Direct 0.11 mg/dL (0.00-0.30); Cholesterol 132 mg/dL (200); High Density Lipoprotein 44 mg/dL; Protein, Total 7.2 g/dL (6.4-8.2); Triglycerides 104 mg/dL; Very Low Density Lipoprotein 21 mg/dL (5-40)
[2021-11-25 14:41] LABS: Prothrombin Time (Protime)PT. 37.9 SECONDS (11.7-14.9)
== END 2021-12-01 18:00 | disposition home or self-care (01) ==
LOC: LAB 13:17
PROVIDERS: Nurse Practitioner Family; Family Provider Preventive Medicine Occupational Medicine; PCP Preventive Medicine Occupational Medicine; Referring Provider Specialist; Visit Provider Specialist
DX: E78.00 Pure hypercholesterolemia, unspecified; E78.5 Hyperlipidemia, unspecified; Z95.2 Presence of prosthetic heart valve; Z79.01 Long term (current) use of anticoagulants
CPT/HCPCS: 36415; 80061; 80076; 85610

== ENCOUNTER 2021-11-25 13:23 | Outpatient (CLI) | payer MEDICARE, SELFPAY ==
--- NOTE | 2021-11-25 15:54 | NEURO ---
NCS and/or EMG Patient Report Ordering Doctor: Chalino Whitehead DATE OF SERVICE: 11/25/21 Indication: Progressive right hand weakness. Numbness of the lesser fingers. Evaluate for entrapment neuropathy. Findings: Nerve conduction studies were performed in the right upper extremity. The right median motor study recording the abductor pollicis brevis showed a normal amplitude, prolonged distal latency and borderline conduction velocity. The right ulnar motor study recording the abductor digiti minimi showed a normal amplitude, normal distal latency and borderline conduction velocity. Focal slowing was present across the elbow. The right ulnar motor study recording the first dorsal interosseous showed a normal amplitude, normal distal latency and slowed conduction velocity. Focal slowing was present across the elbow. Right median-ulnar lumbrical / interosseous motor latencies showed a prolonged median latency compared to the ulnar. The right median sensory response recording digit two showed a normal amplitude, borderline latency and mildly slowed conduction velocity. The right ulnar sensory response recording digit five showed a reduced amplitude, normal latency and borderline conduction velocity. The right radial sensory response recording over the extensor snuff box showed a normal amplitude, latency and conduction velocity. Needle EMG of the right upper extremity and cervical paraspinal muscles was performed. No denervation was seen in any muscle. Motor units in the first dorsal interosseous and abductor pollicis brevis were large amplitude, long duration with slightly reduced recruitment. All other motor unit morphology, activation and recruitment patterns were normal. Impression: This is an abnormal study. There is electrophysiologic evidence of ulnar neuropathy across the right elbow. The pathophysiology is predominantly demyelination, though there is significant secondary axonal loss. In addition, there is electrophysiologic evidence of a median neuropathy across the right wrist. This finding is compatible with the clinical diagnosis of carpal tunnel syndrome. Chiki Garsia D.O. Multi Select Codes Neurology Neurology Interp Codes: 27524-20 Musc test done w/n test comp (interp) and 89897-19 Nrv cndj test 7-8 studies (interp)
== END 2021-11-25 23:59 | disposition home or self-care (01) ==
PROVIDERS: PCP Preventive Medicine Occupational Medicine; Referring Provider Specialist; Visit Provider Specialist
DX: R53.1 Weakness (principal); R20.0 Anesthesia of skin; G56.01 Carpal tunnel syndrome, right upper limb; E78.00 Pure hypercholesterolemia, unspecified; E78.5 Hyperlipidemia, unspecified; Z79.01 Long term (current) use of anticoagulants; Z95.2 Presence of prosthetic heart valve
CPT/HCPCS: 36415; 85610; 95886; 95910

== ENCOUNTER 2021-12-20 12:28 | Outpatient (RCR) | payer MEDICARE, SELFPAY ==
[2021-12-02 03:38] VITALS: BMI 34.7
[2021-12-06 13:58] LABS: International Normalized Ratio 3.5; Prothrombin Time (Protime)PT. 34.4 SECONDS (11.7-14.9)
[2021-12-20 13:45] LABS: International Normalized Ratio 2.9; Prothrombin Time (Protime)PT. 30.3 SECONDS (11.7-14.9)
== END 2021-12-20 18:00 | disposition home or self-care (01) ==
LOC: LAB 12:28
PROVIDERS: Internal Medicine Cardiovascular Disease; Family Provider Preventive Medicine Occupational Medicine; PCP Preventive Medicine Occupational Medicine; Referring Provider Specialist; Visit Provider Specialist
DX: Z79.2 Long term (current) use of antibiotics (principal); Z79.01 Long term (current) use of anticoagulants
CPT/HCPCS: 36415; 85610

== ENCOUNTER → 2022-01-06 | Outpatient (CLI) | payer MEDICARE, SELFPAY ==
--- NOTE | 2022-01-06 14:54 | CT_ITS ---
STUDY: CT RIGHT SHOULDER REASON FOR EXAM: Male, 66 years old. POST TRAUMA OSTEOARTHRITIS RADIATION DOSAGE (If Supplied By Facility): CTDIvol = ( 38.40 ) mGy, DLP = ( 944.79 ) mGycm TECHNIQUE: The patient was scanned in a multi detector CT scanner. High resolution transaxial imaging was performed without the administration of intravenous contrast material. Sagittal and coronal images were reconstructed. Individualized dose optimization techniques were used for this CT. COMPARISON: Comparison is made with prior study dated 10/12/2021. FINDINGS: 1 segment, there is glenohumeral arthrosis with joint space narrowing in the erosive changes in the posterior glenoid. A metallic anchors once again seen in the anterior aspect of the greater tuberosity. A subchondral cyst is seen in the greater tuberosity. Once again, there is cephalic migration of the humeral head with pressure erosion of the inferior acromion in keeping with rotator cuff disease. Normal coracoid process. Normal visualized lateral clavicle. There is mild osteoarthritis with articular joint space narrowing. There is a Type II morphology (curved), with a neutral orientation. There is evidence of stable atrophy and fatty replacement of the supraspinatus and subscapularis muscles. CT/Extremity Upper without Contra IMPRESSION: Stable examination. Electronically Signed: Floyd Lobato MD at 15:26 EDT ,
== END | disposition home or self-care (01) ==
LOC: CT 14:53
PROVIDERS: PCP Preventive Medicine Occupational Medicine; Referring Provider Specialist; Visit Provider Specialist
DX: M19.111 Post-traumatic osteoarthritis, right shoulder (principal)
CPT/HCPCS: 73200

== ENCOUNTER 2022-01-10 11:29 | Outpatient (RCR) | payer MEDICARE, SELFPAY ==
[2022-01-01 04:46] VITALS: BMI 34.7
[2022-01-10 12:12] LABS: International Normalized Ratio 3.2; Prothrombin Time (Protime)PT. 32.6 SECONDS (11.7-14.9)
== END 2022-01-10 18:00 | disposition home or self-care (01) ==
LOC: LAB 11:29
PROVIDERS: Family Provider Preventive Medicine Occupational Medicine; PCP Preventive Medicine Occupational Medicine; Referring Provider Specialist; Visit Provider Specialist
DX: Z79.2 Long term (current) use of antibiotics (principal); Z79.01 Long term (current) use of anticoagulants
CPT/HCPCS: 36415; 85610

== ENCOUNTER 2022-02-09 13:23 | Outpatient (CLI) | payer MEDICARE, SELFPAY ==
--- NOTE | 2022-02-09 13:25 | CT_ITS ---
EXAM: CT CHEST, LUNG CANCER SCREENING WITHOUT INTRAVENOUS CONTRAST CLINICAL INDICATION: and gt; 20 pack years quit 2009 TECHNIQUE: Helically acquired images were obtained of the chest without intravenous contrast using low dose (LDCT) lung cancer screening protocol. This CT exam was performed using one or more of the following dose reduction techniques: automated exposure control, adjustment of the mA and/or kV according to patient size, and/or use of iterative reconstruction technique. This report was created using [employer] report generation technology. COMPARISON: 12/02/2019 FINDINGS: LUNGS AND PLEURAL SPACES: Unremarkable. No mass. No consolidation or edema. No pleural effusion or thickening. No pneumothorax. HEART: There are coronary artery calcifications present. Heart size is normal. No pericardial effusion. MEDIASTINUM: Unremarkable. No mediastinal or hilar adenopathy. Esophagus is unremarkable. No hiatal hernia. THYROID: Unremarkable. No thyroid lesions. BONES/JOINTS: Unremarkable. No suspicious lytic or blastic abnormality. VASCULATURE: Unremarkable. Thoracic aorta is non-dilated. LYMPH NODES: Unremarkable. No enlarged lymph nodes. CT/Low Dose CT Lung Screening IMPRESSION: 1. No acute pulmonary abnormality. 2. Lung RADS category 1. Electronically Signed: Bethel Richardson MD at 18:04 EDT ,
== END 2022-02-09 23:59 | disposition home or self-care (01) ==
PROVIDERS: PCP Preventive Medicine Occupational Medicine; Visit Provider Nurse Practitioner Acute Care
DX: Z87.891 Personal history of nicotine dependence (principal); Z79.01 Long term (current) use of anticoagulants; Z95.2 Presence of prosthetic heart valve
CPT/HCPCS: 36415; 71271; 85610

== ENCOUNTER 2022-02-09 13:40 | Outpatient (RCR) | payer MEDICARE, SELFPAY ==
[2022-01-31 21:19] VITALS: BMI 34.7
[2022-02-09 15:08] LABS: International Normalized Ratio 3.1; Prothrombin Time (Protime)PT. 31.6 SECONDS (11.7-14.9)
== END 2022-02-09 23:59 | disposition home or self-care (01) ==
LOC: LAB 13:40
PROVIDERS: Family Provider Preventive Medicine Occupational Medicine; PCP Preventive Medicine Occupational Medicine; Referring Provider Specialist; Visit Provider Specialist
DX: Z95.2 Presence of prosthetic heart valve (principal); Z79.01 Long term (current) use of anticoagulants
CPT/HCPCS: 36415; 85610

== ENCOUNTER 2022-03-28 11:56 | Outpatient (RCR) | payer MEDICARE, SELFPAY ==
[2022-03-03 07:41] VITALS: BMI 34.7
[2022-03-15 10:01] LABS: International Normalized Ratio 2.2; Prothrombin Time (Protime)PT. 24.2 SECONDS (11.7-14.9)
[2022-03-28 12:46] LABS: International Normalized Ratio 1.7; Prothrombin Time (Protime)PT. 19.7 SECONDS (11.7-14.9)
[2022-09-29 11:14] LABS: International Normalized Ratio 3.1
== END 2022-04-02 02:58 | disposition home or self-care (01) ==
LOC: LAB 11:56
PROVIDERS: Family Provider Preventive Medicine Occupational Medicine; PCP Preventive Medicine Occupational Medicine; Referring Provider Specialist; Visit Provider Specialist
DX: Z95.2 Presence of prosthetic heart valve (principal); Z79.01 Long term (current) use of anticoagulants
CPT/HCPCS: 36415; 85610

== ENCOUNTER → 2022-04-12 | Outpatient (CLI) | payer MEDICARE, SELFPAY ==
--- NOTE | 2022-04-13 13:35 | PFT ---
INTRODUCTION: The patient is a 66-year-old male that presents for pulmonary function studies secondary to a diagnosis of shortness of breath. Respiratory therapy reported good patient effort. Bronchodilators were used during testing. INTERPRETATION: Forced expiration spirometry demonstrates the presence of a mild large airways obstructive ventilatory defect. There was a significant response to aerosolized bronchodilators noted. Spirograms are of good quality but do not plateau indicating slow emptying of the lungs. Body plethysmography was performed and reveals lung volumes to be within normal limits. Diffusing capacity by single breath CO is reduced at 61% of predicted. IMPRESSION: Partially reversible mild large airways obstructive ventilatory defect with preserved lung volumes and symmetric reduction in diffusing capacity.
== END | disposition home or self-care (01) ==
LOC: PSN 08:01
PROVIDERS: PCP Preventive Medicine Occupational Medicine; Referring Provider Nurse Practitioner Acute Care; Visit Provider Nurse Practitioner Acute Care
DX: R06.02 Shortness of breath (principal)
CPT/HCPCS: 94060; 94726; 94729

== ENCOUNTER → 2022-04-18 | Outpatient (CLI) | payer MEDICARE, SELFPAY ==
[2022-04-18 13:55] VITALS: PULSE 75; PULSE 78; PULSE 84; PULSE 89; PULSE 93; PULSE 96; PULSE 97; O2SAT 93; O2SAT 94; O2SAT 95; O2SAT 96; O2SAT 97
--- NOTE | 2022-04-19 05:53 | WT_ITS ---
PSN 6 Minute Walk Test 6 Minute Walk Test 6 Minute Walk Test: 6 Minute Walk Test PSN:6-Minute Walk Test Start: 04/18/22 13:55 Freq: Status: Active Protocol: RESP.6MINW Document 04/18/22 13:55 FERNANDOMARK (Rec: 04/18/22 13:57 FERNANDOON [id number]) 6 Minute Walk Test Date Performed 04/18/22 Time Performed 13:45 Height 6 ft 2 in Weight: 127.006 kg Weight in Pounds 280.[address]: Lilliam Denney [employer] Assistive device used: None Pre-test Oxygen Delivery Method Room Air Pulse Ox (%) 97 Pulse Rate (60-100 beats/min) 75 Dyspnea Elba Scale (0-10) 1 Exertion Elba Scale (6-20) 6 1st minute Oxygen Delivery Method Room Air Pulse Ox (%) 96 Pulse Rate (60-100 beats/min) 84 2nd minute Oxygen Delivery Method Room Air Pulse Ox (%) 94 Pulse Rate (60-100 beats/min) 89 3rd minute Oxygen Delivery Method Room Air Pulse Ox (%) 95 Pulse Rate (60-100 beats/min) 93 4th minute Oxygen Delivery Method Room Air Pulse Ox (%) 93 Pulse Rate (60-100 beats/min) 96 5th minute Oxygen Delivery Method Room Air Pulse Ox (%) 95 Pulse Rate (60-100 beats/min) 96 6th minute Oxygen Delivery Method Room Air Pulse Ox (%) 94 Pulse Rate (60-100 beats/min) 97 Dyspnea Elba Scale (0-10) 5 Exertion Elba Scale (6-20) 13 Post-test Oxygen Delivery Method Room Air Pulse Ox (%) 96 Pulse Rate (60-100 beats/min) 78 Full Laps Walked 18 Partial Lap, Number of Tiles Walked 38 Total Distance Walked (ft) 1100 Interpretation Interpretation: The patient was able to ambulate 1100 feet over the course of 6 minutes on room air with no assistive devices or breaks. The patient experienced no significant desaturation or tachycardia during testing. These findings are consistent with a normal walking oximetry. Recommendations Recommendations: No supplemental oxygen is indicated at this time.
== END | disposition home or self-care (01) ==
LOC: PSN 13:35
PROVIDERS: PCP Preventive Medicine Occupational Medicine; Referring Provider Nurse Practitioner Acute Care; Visit Provider Nurse Practitioner Acute Care
DX: R06.02 Shortness of breath (principal)
CPT/HCPCS: 94618

== ENCOUNTER 2022-04-19 12:25 | Observation (INO) | payer MEDICARE, SELFPAY ==
--- NOTE | 2022-04-04 08:58 | EKG12_ITS ---
Test Reason : PREOP Blood Pressure : / mmHG Vent. Rate : 068 BPM Atrial Rate : 068 BPM P-R Int : 240 ms QRS Dur : 164 ms QT Int : 462 ms P-R-T Axes : 014 033 185 degrees QTc Int : 491 ms Sinus rhythm with 1st degree A-V block with Premature supraventricular complexes Left bundle branch block Abnormal ECG Confirmed by DMITRY MCLAIN, ALCON ([id number]), rewrite editor LLOYD BATISTA ([id number]) on 04/05/2022 9:12:23 AM Referred By: Chalino Whitehead Confirmed By:ALCON ANDRES MD
[2022-04-04 09:51] LABS: Absolute Lymphocyte Count 1.74 X10^3/uL (0.83-4.51); Basophil# 0.01 X10^3/uL; Basophil% 0.1 % (0-1); Hematocrit 43.9 % (40-54); Hemoglobin 14.4 g/dL (13.0-16.5); Lymphocyte # 1.74 X10^3/ul (0.83-4.51); Lymphocyte % 19.9 % (19-41); Mean Corp Hgb Conc 32.8 g/dL (32-36); Mean Corpuscular Volume 100.7 fL (80-94); Mean Platelet Vol. 9.3 fl (6.2-12.0); Monocyte# 0.92 X10^3/uL; Monocyte% 10.5 % (0-10); NRBC Flagged by Analyzer 0 % (0-5); Neutrophil # 6.03 X10^3/uL (2.7-7.7); Neutrophil % 69.2 % (47-70); Platelet Count 210 K/mm3 (150-450); RBC Distribution Width CV 13.1 % (11.6-14.6); RBC Distribution Width SD 48.5 fl (35.1-43.9); Red Blood Count 4.36 M/mm3 (4.6-6.2); White Blood Count 8.7 K/mm3 (4.4-11.0)
[2022-04-04 10:08] LABS: International Normalized Ratio 2.9; Prothrombin Time (Protime)PT. 30.4 SECONDS (11.7-14.9)
[2022-04-04 10:10] LABS: Hemoglobin A1c 5.3 % (3.8-5.6)
[2022-04-04 10:20] LABS: Albumin, Serum 3.4 g/dL (3.2-5.0); Anion Gap 4 (5-15); BUN 8 mg/dL (7-18); BUN/Creat Ratio 8.6 RATIO (10-20); Calcium,Total 8.5 mg/dL (8.5-10.1); Chloride 105 mmol/L (98-107); Creatinine, Serum 0.93 mg/dL (0.70-1.30); EST Glomerular Filtration Rate 86 mL/min (>60); Est Glom Filt Rate - Afr Amer 104 mL/min (>60); Glucose 109 mg/dL (74-106); Potassium 4.1 mmol/L (3.5-5.1); Sodium Level 137 mmol/L (136-145)
[2022-04-04 10:30] LABS: AST(SGOT) 25 U/L (15-37); Alanine Aminotransfer ALT/SGPT 28 U/L (16-61); Albumin, Serum 3.5 g/dL (3.2-5.0); Alkaline Phosphatase 141 U/L (45-117); Bilirubin, Direct 0.14 mg/dL (0.00-0.30); Globulin 3.6 g/dL (2.2-4.2); Magnesium 1.8 mg/dL (1.6-2.6); Protein, Total 7.1 g/dL (6.4-8.2)
--- NOTE | 2022-04-05 22:12 | PCM.HP.BLA ---
History and Physical History and Physical [facility] Patient Name: Fady Matos : 1955 From:? GENIA MARSHALL PA-C? DATE OF SURGERY:? 04/19/2022 SCHEDULED PROCEDURE:? ?right reverse total shoulder arthroplasty HISTORY OF PRESENT ILLNESS: Preoperative history and physical exam was performed on April 03, 2022.? This is a 66-year-old male who has been having ongoing pain for several months with the right shoulder.? He is right-hand dominant.? Patient's pain is located over the anterior and lateral right shoulder.? It occasionally wakes him at night.? Patient has difficulty with any activity of daily living that requires motion over his head or reaching behind him.? He has difficulty getting dressed secondary to the pain.? He does feel his motion is limited on the right shoulder.? He has tried previous conservative measures including [id number] Tylenol without relief, corticosteroid injection with only 2 weeks of relief.? Patient states he does have previous history of a work-related injury 12 years ago which she was treated with a rotator cuff repair.? He has had CT scan of the shoulder which does reveal severe glenohumeral arthrosis with rotator cuff atrophy consistent with chronic rotator cuff tear arthropathy.? After failing conservative measures and discussing treatment options with Dr. Chalino Whitehead, the patient does wish to proceed with a right reverse total shoulder arthroplasty.? He has medical history pertinent for coronary artery disease, previous mini stroke over 5 years ago, emphysema, ulcers, gastroesophageal reflux disease, sleep apnea, hypercholesterolemia, previous heart valve replacement and heart bypass.? We have obtain surgical clearance from the primary care physician Dr. Rodríguez, director of guidance Dr. Norton, and patient services coordinator Dr. Arvizu.? Cardiology recommends that we stop the Coumadin 5 days prior to surgery.? We'll also stop Plavix 3 days prior to surgery.? Cardiology did not recommend any bridging preoperatively.? Resume anticoagulants postoperatively.? Patient currently denies any chest pain, shortness of breath, fevers chills or recent infections. REVIEW OF SYSTEMS: Review Of Systems: Constitutional: Reports anxiety, but denies anorexia, change in appetite, fever, difficulty sleeping, weight change. Cardiovasular: Reports irregular heartbeat, but denies chest pain, heart murmur and peripheral vascular disease. Respiratory: Reports shortness of breath, but denies asthma, cough, pneumonia, sleep apnea, tuberculosis and wheezing. Gastrointestinal: Reports heartburn, but denies constipation, diarrhea, nausea, rectal itching, bloody stools and vomiting. Genitourinary: Denies incontinence. Musculoskeletal: Reports leg swelling and trouble walking, but denies pain and weakness. Skin: Reports tattoo, but denies Raynaud's and history of shingles. Neurological: Denies ambulatory dysfunction, dizziness, numbness/tingling and tremor. Psychiatric: Reports anxiety and stress, but denies depression, insomnia and mental illness. Hematologic/Lymphatic: Denies anemia, bleeding/bruising tendency and past transfusion. Reviewed, no changes. PAST MEDICAL HISTORY: Advance Care Plan: No Advance Directives Effective Date: 08/04/2021 Past Medical History: Medical Problems: Arthritis, Coronary Artery Disease (CAD) Stroke - MINI Emphysema, Ulcers, Gastroesophageal Reflux Disease, Sleep Apnea, Hypercholesterolemia Accidents: None Surgical Hx: Appendectomy - [facility] Heart Bypass (CABG) - [facility] Heart Valve Replacement - [facility] RT Shoulder Rotator Cuff, heart cath(2021) Anesthesia Complications: None Assistive Devices: Glasses, Dentures Reviewed and updated. SOCIAL HISTORY: Social History: Marital: .Occupation: Disabled.Work Status: Disabled - SINCE 2007.Hand Dominance: Right-handed. Personal Habits:? Cigarette Use: Former.Smokeless Tobacco: Never Used Smokeless Tobacco.E-Cigarette Use: Never used.Alcohol: Has consumed alcohol in the past.Drug Use: Former Illegal Drug User.Enjoy Exercising: Never Exercises. Reviewed, no changes. VITALS: Ht: 74 Wt: 260lb 8oz Wt k.163 BMI: 33.4 BP: 130/70 Pulse: 60 Resp: 20 T: 97.2 T: 36.2C Pain Level: 6 O2SatR: 100 ALLERGIES: No Known Drug Allergy Contrast Dye? MEDICATIONS: Benztropine Mesylate 0.5 mg 1 PO bid, Risperidone 3 mg 1 PO in afternoon, Coumadin 7.5 mg 3po 7.5/ 4po 6mg, Clopidogrel Bisulfate 75 mg 1 by mouth every day, Klor-Con 10 10 Meq, Vitamin D3 Extra Strength 25 mcg, Fluoxetine HCL 20 mg 1 by mouth every day, Memantine HCL 5 mg take 1 tablet by mouth twice daily., Pantoprazole Sodium 40 mg 1 by mouth every day, Buspirone HCL 15 mg take 1 tablet by mouth twice daily., Metoprolol Succinate ER 25 mg 1 by mouth every day, Donepezil HCL 10 mg 1 by mouth every day, Montelukast Sodium 10 mg 1 by mouth every day, Trazodone HCL 50 mg 1 by mouth every day, Aspirin Adult Low Dose 81 mg by mouth 1 a day PRE-OP EXAM:? General appearance:NORMAL? ? ? Other: Eyes: Conjunctivae and lids: NORMAL? Pupils: ERR Ears, Nose, Mouth, and Throat: NORMAL? Other: Inspection of lips, teeth and gums: NORMAL? ?Other: Neck: Examination of neck: no masses noted. Respiratory: Assessment of respiratory effort: NORMAL? ?Other: ?Auscultation of lungs: clear to auscultation no wheezes, rhonchi or rales. Cardiovascular:? Auscultation of heart: regular rate and rhythm, no murmurs, gallops or rubs. PHYSICAL EXAMINATION: Right shoulder is cool to touch without erythema or signs of infection.? Previous incisions from mini open rotator cuff repair is well-healed.? He does get increased pain with any range of motion of the shoulder.? Crepitus with range of motion.? Passive forward elevation 135.? Actively 125 on the right, external rotation 25 on the right and 45 on the left, internal rotation L1 on the left and L4 on the right.? With range of motion he does have scapular dyskinesia.? 3/5 supraspinatus strength on the right and 4/5 on the left, 4/5 external rotation on the right and 5/5 on the left.? Internal rotation 5/5 bilaterally.? Sensation intact to light touch to axillary, radial, median, ulnar nerve distribution. IMAGING STUDIES: Previous x-rays of the right shoulder reveal severe glenohumeral joint space narrowing with subchondral sclerosis, previous rotator cuff repair anchor.? There is migration of the humeral head and subchondral sclerosis on the undersurface of the acromion consistent with severe rotator cuff dysfunction associated secondary osteoarthritis. CT scan were also reviewed which did reveal severe glenohumeral arthrosis with rotator cuff arthropathy with rotator cuff atrophy. IMPRESSION: 1.? Severe right shoulder glenohumeral osteoarthritis with chronic rotator cuff arthropathy 2.? Coronary artery disease 3.? Previous heart bypass and valve replacement 4.? Previous mini stroke 5.? Chronic obstructive pulmonary disease and asthma 6.? History of ulcers 7.? Gastroesophageal reflux disease 8.? Sleep apnea 9.? Hypercholesterolemia PLAN: Dr. Chalino Whitehead did discuss and review with the patient all treatment options including surgical versus nonsurgical options.? Patient does wish to proceed with the above-stated procedure.? Potential risks, benefits, and complications of the procedure were discussed in detail including but not limited to , infection, nerve and blood vessel damage, persistent pain, numbness, tingling, paresthesias, blood clot, pulmonary embolism, and requirement for possible further surgery.? The patient expressed full understanding and has no further questions for the doctor.? Patient does agree to proceed with the above-stated procedure and has signed the surgery consent form. We discussed the current risks associated with COVID 19.? This does include the risk of exposure while in the hospital.? Patient was reassured local hospitals have low infection rates and are taking all necessary precautions to avoid exposure to patients.? In addition, we discussed strategies that can be used to help limit exposure including those that limit the patient's time in the hospital.? Also using strategies to limit the patient's need for continued inpatient services after being discharged from the hospital.? Patient was notified that we will need to comply with any screening or testing the hospital wishes to perform or that surgery may be delayed for any positive results. This dictation was created using voice recognition software. Phonetic and/or grammatical errors may exist. ___? I have re-examined the patient.? There are no clinical changes since date of exam. ___? See progress notes for changes. ___? Dictated on admission Date: ? ? ?Time: Signature:
[2022-04-19] VITALS (14 sets, daily range): BP systolic 108–132; BP diastolic 55–83; PULSE 63–99; RESP 16–19; TEMP 35.8–36.5; O2SAT 92–99; BMI 32.8
--- NOTE | 2022-04-19 | SHO_PTH ---
PATIENT: PASHA DENISE LOC: MS3 U#:[id number] AGE/SX: 66/M [place] [facility] [place]: Dr. Chalino Whitehead MD : 1955 BED: 1 DIS: 04/20/2022 SPEC #: [id number] RECD: 04/19/22 16:59 STATUS: MAURICIO REWillie #: [id number] DORIE: 04/19/22 00:[address]: Chalino Whitehead DEPT: SURGICAL PATHOLOGY RECD BY: Bernard Guzman ENTERED: 04/20/22 08:56 SP TYPE: HUMERUS OTHR DR: DO Dr. Bartolo Kim DO Tissues: Humerus, NOS Procedures: Decalcification bone/plaque Surgery Specimen Level IV HEADER OPERATION: Total shoulder replacement, reverse PRE-OP DIAGNOSIS: Severe right shoulder glenohumeral osteoarthritis with chronic rotator cuff arthropathy TISSUE SUBMITTED: Bone and soft tissue of right shoulder MICROSCOPIC DIAGNOSIS Bone and tissue of right shoulder, total shoulder resection: Degenerative joint disease. Mild synovial hyperplasia. AM:evon 04/24/2022 MICROSCOPIC DESCRIPTION Slides are reviewed. GROSS DESCRIPTION Received is one container labeled with the patient name and designated bone and soft tissue. The specimen consists of a humeral head measuring 5 x 5 x 3 cm. The articular surface shows areas of erosion, eburnation and osteophyte formation. Also received are multiple pieces of soft tissue measuring in aggregate 6 x 6 x 2 cm. Collaborative Physician sections are submitted in two cassettes as follows: 1 - soft tissue, 2 - humeral head after decalcification. / SJ:cc 04/20/22 TC:5 [facility]: [id number], [id number]
--- NOTE | 2022-04-19 07:04 | OP.PCM_ITS ---
Report of Operation Date of Procedure: 04/19/22 Pre-Operative Diagnosis: Right shoulder osteoarthritis with rotator cuff dysfun ction Post-Operative Diagnosis: Right shoulder osteoarthritis with rotator cuff dysfunction Surgery/Procedure Performed:: Right reverse total shoulder replacement Description of Surgical Findings:: Stable shoulder Surgeon: Chalino Whitehead global marketing operations manager: Shaggy Barraza Type of Anesthesia: General Anesthesiologist: Mickey Shaw Special Medications: 2 g Ancef, 1 g TXA at incision, 1 g TXA closure, 10 mg Decadron Specimen's removed: Bony cuts Estimated Blood Loss (mL): 200 Fluids Replaced: 1500 Description of Procedure: Components used 1. [place] reunion glenoid baseplate 2. [place] reunion 36 mm, 6mm Glenosphere 3. [place] reunion 36mm, 4mm humeral liner 4. [place] reunion reverse TSA humeral adapter tray 2mm 5. [place] reunion humeral stem primary press-fit 18mm size Brief history/Operative indications: 66 yo m with history of right shoulder pain and cuff tear arthropathy. Patient failed conservative measures as mentioned in the H&P. After discussion of risk and benefits of reverse total shoulder replacement including but not limited to blood loss, DVTs, PEs, nerve vessel damage, infection, general risk of anesthesia including loss of life, instability and stiffness patient demonstrating understanding wish to proceed was able to sign informed consent. Medical clearance was obtained. Procedure: On the date of the procedure, patient's right upper extremity was marked in the preoperative area. Patient was taken back to the operating room where they were placed on the table in the supine position. Anesthesia assumed control of the C-spine and airway, then administered anesthetic. All bony prominences were identified well-padded, the head was secured and the patient was placed in the beachchair position at about 35? inclination. Anesthesia remained in control of the C-spine airway throughout the remainder of the procedure. Patient was then appropriately fastened to the table and the right upper extremity was prepped in a sterile fashion. The surgeons then scrubbed. Upon reentering the room, the right upper extremity was draped in a sterile fashion and the incision was marked out. Timeout was called, everyone agreed upon the side, the site, the procedure to be performed, patient identity and antibiotics given. Incision was taken down through skin and subcutaneous tissue, fat down to fascia. The stripe of the deltopectoral interval and cephalic vein were identified and blunt dissection was used to retract the deltoid. The cephalic vein was retracted laterally. Clavipectoral fascia was then incised and a cobra retractor was placed in the wound. The proximal one third of the pectoralis major insertion was released. Pectoralis tendon insertion was used to tenodesed the biceps tendon which was identified in the bicipital groove. Tenodesis was done with #1 Vicryl. Proximally we followed the biceps tendon after transecting it into the rotator interval. The rotator interval was split and the arm was externally rotated. The split was 1 cm medial to the bicipital groove. Subscapularis tendon was released. We released down the anterior portion of the humeral head and a marina elevator was used to release the inferior portion of the humeral head. The arm was externally rotated and the shoulder was dislocated. The humeral head was then cut at its natural retroversion. Once his humeral head cut was made humerus was retracted out of the way and the glenoid was exposed. After exposing the glenoid, the labrum and the remaining proximal biceps were debrided. At this time we are able to view the entire outer edge of the glenoid. A central pin was placed we sequentially reamed over this central pin to 36mm. Once this was completed the central screw was measured and found to be. The glenoid baseplate was screwed into place. Wound was closely irrigated out with normal saline we then drilled sequentially for 2 screws. Screws were placed superiorly and inferiorly and tightened down the screws. Once the screws were appropriately tightened into place the glenoid baseplate was compressed against the exposed subchondral bone. A 36mm glenosphere was impacted into place engaging the Little taper. Attention was then turned towards the humerus. The humerus was again externally rotated exposing the proximal portion of the humerus. Central canal finder was then used to open up the canal. We reamed to a 18mm reamer. We then broached to a 18mm stem. We trialed the 4mm liner, with the 2mm humeral baseplate. We obtained an adequate reduction at this time with a nice stable shoulder. Good internal rotation to the gluteus, forward elevation to 140?, external rotation to 20?. Final components were then assembled on the back table, trials were removed and the wound was copiously irrigated with normal saline after dislocating the shoulder. Once the final components were assembled they were impacted into place. Shoulder was then reduced and found to be stable with good range of motion. Subscapularis tendon was not repairable. The wound was with chlorhexidine solution then copiously irrigated out with a 1 L normal saline lavage. The deltopectoral fascia was then closed using #1 Vicryl skin was closed using 2-0 Vicryl interrupted sutures and final skin closure was done with 3-0 Monocryl. Steri-Strips are placed for final skin closure. Sterile dressing was placed patient was then placed in a sling and awakened by anesthesia. Patient was then transferred to the PACU for recovery. Postoperative plan: Patient will be admitted to the hospital overnight. They will get physical therapy starting in 2 weeks with normal postoperative regimen. Patient will be placed on doxycycline 100 mg twice daily due to an MRSA colonization preoperatively. Patient will resume Coumadin home dose tomorrow for DVT prophylaxis. The first postoperative appointment will be in 2 weeks for wound check and initiation of phase 1 physical therapy. During the course of the procedure the physician clinical physician assistant played a vital role. His intimate knowledge of my steps in the procedure aided in safe and expedient completion of the procedure. The PA played a vital rolls in positioning particularly in obtaining the appropriate beach chair position and securing the patient's body and head to the table. The PA was also vital in the retraction of soft tissues during the exposure and especially the glenoid work as this is a vital part of the procedure to prevent neurovascular damage. the PA was also vital and protecting soft tissues during times of bony cuts and reaming. He also played a vital role in closure with my direct supervision. The PA was also important during reduction and dislocation of the joint and trials intraoperatively. Complications No intraoperative complications Admit VTE Documentation VTE Present on Admission: No VTE Mechan Device Prophylaxis: SCD's VTE Pharm Prophylaxis ordered?: Yes
[2022-04-19 08:15] LABS: Bedside Glucose 157 mg/dL (74-106)
[2022-04-19 08:26] LABS: International Normalized Ratio 1.3; Prothrombin Time (Protime)PT. 16.1 SECONDS (11.7-14.9)
[2022-04-19] MEDS: Magnesium 2 GM IV (08:27)
[2022-04-19] MEDS: Acetaminophen 500 MG Tablet 1000 MG PO ×2 (08:27→17:25)
[2022-04-19] MEDS: Gabapentin 600 MG Tablet PO (08:27)
[2022-04-19] MEDS: Lactated Ringers 1,000 ML 999 ML IV ×2 (08:27→11:55)
--- NOTE | 2022-04-19 08:59 | CPS ---
Could not scan Duoneb for aerosol. Given in AC, med not verified by Pharmacy
[2022-04-19] MEDS: Lactated Ringers 1,000 ML 75 ML IV (09:30)
[2022-04-19] MEDS: Cefazolin 2 GM in 0.9% Normal Saline 100 ML IV (10:10)
[2022-04-19] MEDS: dexAMETHasone 10 MG/ML Vial IV (10:10)
[2022-04-19] MEDS: TXA in NS 100ml (Placed in Wound) OPERA.SITE (10:52)
[2022-04-19 10:55] LABS: INR Fingerstick 1.5; Prothrombin Time Fingerstick 18.7 SEC (11.7-14.9)
--- NOTE | 2022-04-19 12:10 | RAD_ITS ---
INDICATION: post op -- AP and Lateral X-Ray of operative shoulder in PACU EXAMINATION/TECHNIQUE: X-RAY - RIGHT XR Shoulder Min 2 Views 2 VIEWS COMPARISON: 08/15/2021. FINDINGS: SOFT TISSUES: No soft tissue swelling or gas. No radiopaque foreign body. Unremarkable alignment of the right shoulder prosthesis, no evidence of lucency surrounding the prosthesis. No evidence of cortical irregularity or lucency to suggest a fracture. Soft tissue swelling and air visualized in the overlying soft tissues consistent with postoperative changes. The underlying soft tissues are unremarkable. RAD/Shoulder min 2 Views IMPRESSION: Unremarkable alignment of the right shoulder prosthesis, postoperative changes. Electronically Signed: Abraham Simpson MD at 12:29 EDT ,
[2022-04-19] MEDS: Lactated Ringers 1,000 ML 125 ML IV (12:54)
--- NOTE | 2022-04-19 14:13 | PN.HOSP_ITS ---
Subjective Subjective Yasmine is a 66-year-old white male who presented for an elective total shoulder arthroplasty on 04/19/2022. The patient has a previous history of a right shoulder rotator cuff tear and arthropathy and had unfortunately failed conservative measures as an outpatient. He had been experiencing ongoing shoulder pain for several months that was located over the anterior lateral right shoulder. It was waking him up at night and he was having difficulty with any ADLs and IADLs specifically that required motion over his head or reaching behind his back. He evidently had a previous history of a work-related injury 12 years prior that was treated with a rotator cuff repair. A CT scan of his shoulder revealed severe glenohumeral arthrosis with rotator cuff atrophy. His past medical history is pertinent for CAD/TI A/emphysema/COPD/PUD/GERD/JAMES/hyperlipidemia and previous CABG with aortic valve replacement. The patient was cleared medically for surgery by his cabinet mounter Dr. Norton, and his rail signal mechanic Dr. Arvizu. Instructions were given to stop Coumadin 5 days prior to surgery and Plavix was stopped 3 days prior to surgery. No bridging was required per cardiology's recommendations. The patient is seen in the postoperative period after his transfer from the PACU to the medical floor. Nerve block and is currently experiencing no pain. He sitting up in a chair eating lunch he had a preoperative nerve block and is currently experiencing no pain. He sitting up in chair eating dinner. Objective Data Objective Data Vital Signs: Vital Signs Temp Pulse Resp BP Pulse Ox O2 Del Method O2 Flow Rate 96.8 F L 63 18 108/59 L 98 Nasal Cannula 4 04/19/22 13:30 04/19/22 13:30 04/19/22 13:30 04/19/22 13:30 04/19/22 13:50 04/19/22 13:50 04/19/22 13:50 Oxygen Flow Rate (L/min) 4 Oxygen Delivery Method Nasal Cannula Weight: 116 kg Body Mass Index (BMI) 32.8 Intake & Output: Intake and Output for Last 24 Hours 04/17/22 04/18/22 04/19/22 23:59 23:59 23:59 Intake Total 2749 / 2749 Balance 2749 / 2749 Lab / Micro Data Result Diagrams: 04/04/22 09:13 04/04/22 09:13 Labs: Laboratory Results - last 24 hr 04/19/22 07:49: POC PT 18.7 H, INR 1.5 04/19/22 07:53: POC Glucose 157 H 04/19/22 08:10: PT 16.1 H, INR 1.3 Micro: Microbiology 04/04/22 09:13 Swab (Method) Nasal Screen MRSA/MSSA - Final Radiography Diagnostic Testing: Radiology Impression Shoulder X-Ray 04/19/22 12:10 IMPRESSION: Unremarkable alignment of the right shoulder prosthesis, postoperative changes. Electronically Signed: Abraham Simpson MD at 12:29 EDT , Physical Exam Const alert, oriented x3, no apparent distress and well nourished Constitutional Narrative: Obese, white male sitting up in a chair eating dinner, family at bedside, right arm is in a sling HEENT head/scalp atraumatic, moist oral mucous membranes, oropharynx normal and gingiva normal HEENT Narrative: Mallampati 3, no thrush Resp normal respiratory effort, no retractions, no use of accessory muscles and clear to auscultation bilaterally Auscultation: Negative for crackles, rales, rhonchi or wheezes Cardio regular rate, regular rhythm, S1 normal heart sound, S2 normal heart sound, no murmurs, no rub, no gallops and no JVD Cardio Narrative: Click noted GI normal to inspection, nondistended, normoactive bowel sounds, soft to palpation, non-tender and non-distended Extremity no clubbing, cyanosis or edema Extremity Narrative: Right upper extremity in a sling, cap refill is 2+, extremity is warm, radial pulses are 2+ Neuro oriented x3, CN's II-XII intact bilaterally and no focal motor deficits Neuro Narrative: Limited movement right upper extremity secondary to surgery however all extremities are symmetrical otherwise Speech: speech normal Psych affect normal Psych Narrative: Very pleasant and appropriately interactive Assessment & Plan Assessment/Plan (1) Pneumococcal arthritis, right shoulder: (2) Osteoarthritis, shoulder: PLAN: Plan Right shoulder arthritis status post reverse TSR -Postop day 0 -Management per primary service -Recommend bowel regimen -Reinitiation of anticoagulation with Coumadin per orthopedic surgery -Reinitiation of antiplatelet therapy per orthopedic surgery -Therapy services. He had been experiencing ongoing shoulder pain per orthopedic surgery recommendation CAD -History of CABG/aortic valve replacement -CABG x 4 MEDINA-LAD, SVG-D1, SVG-OM1, SVG-PDA? 01/2003 -2004 [facility] mechanical valve--> goal INR 2.5-3.5 -Restart antiplatelet medications when okay with orthopedic surgery -Continue home Lasix -Continue home metoprolol Hypertension -Continue home Lasix continue metoprolol Hyperlipidemia -Continue home atorvastatin COPD -Continue home as needed albuterol Continue home Symbicort -Continue home Singulair -Restart benralizumab upon discharge GERD/PUD -Continue home Protonix Bipolar disorder -Continue home Risperdal -Continue home trazodone -Continue home fluoxetine -Continue home mood spar -Continue home Cogentin Dementia -Continue home Aricept -Continue home Namenda History of tobacco abuse -Quit smoking 06/12/2004 -Encourage continued cessation DVT prophylaxis -Per primary service Charges/Coding Visit Charges OBSV E&M: 36683 Initial observation care L2
[2022-04-19] MEDS: busPIRone 15 MG TABLET PO ×2 (15:33→21:08)
[2022-04-19] MEDS: Benztropine 2 MG Tablet 1 MG PO ×2 (15:35→21:08)
[2022-04-19] MEDS: Ensure Surgery 237 ML LIQUID PO (17:26)
[2022-04-19] MEDS: oxyCODONE 5 MG Tablet PO ×2 (17:28→21:23)
[2022-04-19] MEDS: Cefazolin 1 GM/50 ML BAG IV (17:42)
[2022-04-19] MEDS: Albuterol 2.5 MG/3 ML VIAL.NEB. INHALATION (19:02)
[2022-04-19] MEDS: Budesonide Respules 0.5 MG/2 ML AMPUL.NEB. INHALATION (19:02)
[2022-04-19] MEDS: Memantine Hydrochloride 5 MG Tablet PO (21:08)
[2022-04-19] MEDS: Donepezil HCl 10 MG Tablet PO (21:09)
[2022-04-19] MEDS: traZODone 50 MG Tablet PO (21:09)
[2022-04-19] MEDS: Senna/Docusate Sodium 1 Tablet 2 TABLET PO (21:09)
[2022-04-19] MEDS: RisperiDONE 2 MG Tablet 4 MG PO (21:10)
[2022-04-19] MEDS: Atorvastatin Calcium 40 MG Tablet PO (21:10)
[2022-04-19] MEDS: Metoprolol Tartrate 50 MG Tablet PO (21:30)
[2022-04-19] MEDS: Pantoprazole Sodium 40 MG Tablet PO (21:34)
[2022-04-19] MEDS: Montelukast 10 MG Tablet PO (21:34)
[2022-04-20] MEDS: Acetaminophen 500 MG Tablet 1000 MG PO ×2 (00:16→08:33)
[2022-04-20 01:07] VITALS: BP 120/62; PULSE 70; RESP 16; TEMP 36.8; O2SAT 97
[2022-04-20] MEDS: Cefazolin 1 GM/50 ML BAG IV (01:58)
[2022-04-20] MEDS: oxyCODONE 5 MG Tablet PO ×3 (02:08→10:36)
[2022-04-20] MEDS: Benztropine 2 MG Tablet 1 MG PO (05:22)
[2022-04-20] MEDS: busPIRone 15 MG TABLET PO (05:22)
[2022-04-20 05:31] VITALS: BP 124/67; PULSE 74; RESP 16; TEMP 36.6; O2SAT 97
[2022-04-20 06:07] LABS: Hematocrit 39.3 % (40-54); Hemoglobin 13.1 g/dL (13.0-16.5); Mean Corp Hgb Conc 33.3 g/dL (32-36); Mean Corpuscular Hgb 33.5 pg (27.0-32.0); Mean Corpuscular Volume 100.5 fL (80-94); Mean Platelet Vol. 9.2 fl (6.2-12.0); Platelet Count 177 K/mm3 (150-450); RBC Distribution Width CV 12.9 % (11.6-14.6); RBC Distribution Width SD 48.1 fl (35.1-43.9); Red Blood Count 3.91 M/mm3 (4.6-6.2); White Blood Count 14.1 K/mm3 (4.4-11.0)
[2022-04-20 06:37] LABS: Anion Gap 4 (5-15); BUN 7 mg/dL (7-18); BUN/Creat Ratio 8.6 RATIO (10-20); Calcium,Total 8.1 mg/dL (8.5-10.1); Chloride 106 mmol/L (98-107); Creatinine, Serum 0.81 mg/dL (0.70-1.30); EST Glomerular Filtration Rate 101 mL/min (>60); Est Glom Filt Rate - Afr Amer 122 mL/min (>60); Estimated Creatinine Clearance 105.71 ml/min; Glucose 136 mg/dL (74-106); Potassium 4.2 mmol/L (3.5-5.1); Sodium Level 139 mmol/L (136-145)
[2022-04-20] MEDS: Aspirin 81 MG TAB.CHEW PO (08:33)
--- NOTE | 2022-04-20 09:01 | PCM.PN.HOSP ---
Subjective Subjective Has some pain in RUE. No events overnight. Objective Data Objective Data Vital Signs: Vital Signs Temp Pulse Resp BP Pulse Ox O2 Del Method O2 Flow Rate 36.6 C 74 16 124/67 H 97 Room Air 4 04/20/22 05:31 04/20/22 05:31 04/20/22 05:31 04/20/22 05:31 04/20/22 05:31 04/20/22 05:31 04/19/22 13:50 Oxygen Flow Rate (L/min) 4 Oxygen Delivery Method Room Air Weight: 116 kg Body Mass Index (BMI) 32.8 Intake & Output: Intake and Output for Last 24 Hours 04/18/22 04/19/22 04/20/22 23:59 23:59 23:59 Intake Total 4476.08 / 4476.08 180.00 / 180.00 Balance 4476.08 / 4476.08 180.00 / 180.00 Lab / Micro Data Result Diagrams: 04/20/22 05:55 04/20/22 05:55 Labs: Laboratory Results - last 24 hr 04/19/22 07:49: POC PT 18.7 H, INR 1.5 04/20/22 05:55: WBC 14.1 H, RBC 3.91 L, Hgb 13.1, Hct 39.3 L, MCV 100.5 H, MCH 33.5 H, MCHC 33.3, RDW Std Deviation 48.1 H, RDW Coeff of Adalberto 12.9, Plt Count 177, MPV 9.2 04/20/22 05:55: Sodium 139, Potassium 4.2, Chloride 106, Carbon Dioxide 29.0, Anion Gap 4 L, BUN 7, Creatinine 0.81, Estim Creat Clear Calc 105.71, Est GFR (MDRD) Af Amer 122, Est GFR (MDRD) Non-Af 101, BUN/Creatinine Ratio 8.6 L, Glucose 136 H, Calcium 8.1 L Micro: Microbiology 04/04/22 09:13 Swab (Method) Nasal Screen MRSA/MSSA - Final Radiography Diagnostic Testing: Radiology Impression Shoulder X-Ray 04/19/22 12:10 IMPRESSION: Unremarkable alignment of the right shoulder prosthesis, postoperative changes. Electronically Signed: Abraham Simpson MD at 12:29 EDT , Physical Exam Const alert and no apparent distress Resp normal respiratory effort, no retractions, no use of accessory muscles and clear to auscultation bilaterally Cardio Cardio Narrative: aortic valve click. GI normal to inspection, nondistended, normoactive bowel sounds and soft to palpation Extremity Extremity Narrative: right arm in immoblizer. Assessment & Plan Assessment/Plan (1) Pneumococcal arthritis, right shoulder: (2) Osteoarthritis, shoulder: PLAN: Plan Right shoulder arthritis status post reverse TSR -Postop day 1 -Management per primary service -Recommend bowel regimen -[facility] of ortho, ok from ortho to resume warfarin. -Therapy services. He had been experiencing ongoing shoulder pain per orthopedic surgery recommendation CAD -History of CABG/aortic valve replacement -CABG x 4 MEDINA-LAD, SVG-D1, SVG-OM1, SVG-PDA? 01/2003 -2004 [facility] mechanical valve--> goal INR 2.5-3.5 -[facility] of ortho, ok to resume antiplatelets. -Continue home Lasix -Continue home metoprolol Hypertension -Continue home Lasix continue metoprolol Hyperlipidemia -Continue home atorvastatin COPD -Continue home as needed albuterol Continue home Symbicort -Continue home Singulair -Restart benralizumab upon discharge GERD/PUD -Continue home Protonix Bipolar disorder -Continue home Risperdal -Continue home trazodone -Continue home fluoxetine -Continue home mood spar -Continue home Cogentin Dementia -Continue home Aricept -Continue home Namenda History of tobacco abuse -Quit smoking 06/12/2004 -Encourage continued cessation Leukocytosis -Likely reactive + steroids. -No additional work up. Medically stable for discharge. Charges/Coding Visit Charges Inpatient E&M: 43345 Subs Hosp L2
[2022-04-20 09:33] VITALS: BP 140/66; PULSE 79; RESP 18; TEMP 36.7; O2SAT 95
[2022-04-20] MEDS: Potassium Chloride Oral Tablet 10 MEQ PO (09:42)
[2022-04-20 09:43] VITALS: PULSE 79
[2022-04-20] MEDS: Famotidine 20 MG Tablet PO (09:43)
[2022-04-20] MEDS: FLUoxetine 20 MG Capsule PO (09:43)
[2022-04-20] MEDS: Pantoprazole Sodium 40 MG Tablet PO (09:43)
[2022-04-20] MEDS: RisperiDONE 2 MG Tablet 4 MG PO (09:43)
[2022-04-20] MEDS: Senna/Docusate Sodium 1 Tablet 2 TABLET PO (09:43)
[2022-04-20] MEDS: Cholecalciferol (VIT D3) 25 MCG TABLET (1,000 UNITS) 50 MCG PO (09:43)
[2022-04-20] MEDS: Furosemide 40 MG Tablet PO (09:43)
[2022-04-20] MEDS: Metoprolol Tartrate 50 MG Tablet PO (09:43)
[2022-04-20] MEDS: Memantine Hydrochloride 5 MG Tablet PO (09:43)
[2022-04-20] MEDS: Ensure Surgery 237 ML LIQUID PO (09:50)
--- NOTE | 2022-04-20 09:58 | PCM.PN.ORT ---
Subjective Subjective The patient was sitting in bed upon examination. Patient denies any chest pain, shortness of breath, dizziness, lightheadedness, nausea or vomiting, or calf pain. Pain is controlled on medications. No adverse overnight events. Patient states he does have pain in the right shoulder which is controlled on medications. He was having numbness and tingling yesterday but this has resolved. Patient is alert and oriented x3. He states he does have help at home. Does wish to go home today. Objective Data Objective Data Vital Signs: Vital Signs Temp Pulse Resp BP Pulse Ox O2 Del Method O2 Flow Rate 98.1 F 79 18 140/66 H 95 Room Air 4 04/20/22 09:33 04/20/22 09:43 04/20/22 09:33 04/20/22 09:33 04/20/22 09:33 04/20/22 09:33 04/19/22 13:50 Oxygen Flow Rate (L/min) 4 Oxygen Delivery Method Room Air Weight: 116 kg Body Mass Index (BMI) 32.8 Intake & Output: Intake and Output for Last 24 Hours 04/18/22 04/19/22 04/20/22 23:59 23:59 23:59 Intake Total 4476.08 / 4476.08 180.00 / 180.00 Balance 4476.08 / 4476.08 180.00 / 180.00 Lab / Micro Data Result Diagrams: 04/20/22 05:55 04/20/22 05:55 Labs: Laboratory Results - last 24 hr 04/19/22 07:49: POC PT 18.7 H, INR 1.5 04/20/22 05:55: WBC 14.1 H, RBC 3.91 L, Hgb 13.1, Hct 39.3 L, MCV 100.5 H, MCH 33.5 H, MCHC 33.3, RDW Std Deviation 48.1 H, RDW Coeff of Adalberto 12.9, Plt Count 177, MPV 9.2 04/20/22 05:55: Sodium 139, Potassium 4.2, Chloride 106, Carbon Dioxide 29.0, Anion Gap 4 L, BUN 7, Creatinine 0.81, Estim Creat Clear Calc 105.71, Est GFR (MDRD) Af Amer 122, Est GFR (MDRD) Non-Af 101, BUN/Creatinine Ratio 8.6 L, Glucose 136 H, Calcium 8.1 L Micro: Microbiology 04/04/22 09:13 Swab (Method) Nasal Screen MRSA/MSSA - Final Radiography Diagnostic Testing: Radiology Impression Shoulder X-Ray 04/19/22 12:10 IMPRESSION: Unremarkable alignment of the right shoulder prosthesis, postoperative changes. Electronically Signed: Abraham Simpson MD at 12:29 EDT Reading Location ID and State: [facility] / [place] Tel , Service support , Physical Exam Narrative Vital signs stable, afebrile SCDs and IRIS hose are in place bilaterally Dressing is clean, dry, intact Ultra-sling fitting appropriately Sensation intact to axillary, radial, median, and ulnar distribution Motor intact to AIN, PIN, and ulnar nerve Const alert, oriented x3 and no apparent distress Assessment & Plan Assessment/Plan (1) Status post reverse total arthroplasty of right shoulder: PLAN: 1. S/P right reverse total shoulder arthroplasty POD #1 2. Continue Pain Medications: Tylenol and oxycodone 3. DVT Prophylaxis: Patient will resume his Coumadin and Plavix today. He should follow-up with who is managing his Coumadin for INR checks. Patient voiced understanding agreement. 4. PT/OT: Continue with UltraSling at all times except to come out for range of motion exercises of the elbow and pendulum exercise 3 times daily. No range of motion of the postoperative shoulder until outpatient physical therapy begins. Outpatient physical therapy will begin 2 weeks postoperatively after follow-up with [facility] with x-rays and incision check. 5. H & H: 13.1/39.3, asymptomatic. Postoperative anemia secondary to acute blood loss from surgery without any intra operative complications. 6. Reactive leukocytosis: Currently 14.1, afebrile. Patient did receive Decadron intraoperatively 7. Continue postoperative medical management per medicine: Medicine feels patient is appropriate for discharge. 8. Encouraged Incentive Spirometry 9. Disposition: Plan will be for discharge home today. Patient's pain is been controlled on medications. He has been stable medically. He would like his prescriptions E scribed to [facility] in [facility]. He will follow-up per postop instructions. He does have outpatient physical therapy established. He will contact her office upon discharge with any concerns or questions. I have reviewed the [place] Automated Rx Reporting System (OARRS) report for this patient for refill pattern and other prescriber involvement as part of the appropriate surveillance for the provision of acute and chronic controlled medications. The report was requested and reviewed on the date of this entry and was considered in the prescribing process. This dictation was created using voice recognition software. Phonetic and/or grammatical errors may exist.
--- NOTE | 2022-04-20 10:02 | PCM.DC ---
Discharge Instructions Diet Discharge Diet: No restrictions Activity Discharge Activity: May Not Drive (No driving while wearing the UltraSling for 6 weeks postoperatively.) May shower in (days): 1 (Dressing must be intact to skin. Turn dressing away from water.) Ice area for (Minutes): 20 (Every 1-2 hours while awake[address] place barrier between skin and ice pack.) Weight Bearing Status: No weight bearing (Postoperative upper extremity) Additional Activity Instructions:: Continue with UltraSling at all times. Please come out of UltraSling 3 times daily working on elbow range of motion and pendulum exercises. No range of motion of postoperative shoulder. Will begin outpatient physical therapy after 2-week scheduled follow-up. Dressing / Incision Call your doctor if your incision/area has: Continuous Slow Oozing, Sudden Increased Bleeding, Increased Pain/ Swelling, Increased Redness and Foul Smelling Discharge Call your doctor if you observe: Fever of 101 or Higher, Shortness of breath, Chest pain and Uncontrolled pain Remove Dressing in: 4 days (Okay to remove dressing on April 24, 2022) Additional Dressing/Incision Instructions:: Follow [facility] Post-op Instructions. Once postoperative dressing has been removed only use gentle soap and water over the incision. Do not use any ointments, Neosporin, salves, alcohol pads, hydrogen peroxide over the incision for 6 weeks postoperatively. Do not submerge underwater for 6 weeks postoperatively. Do NOT use alcohol with narcotic pain medication. Do NOT make important decisions while taking narcotic medication. If you have problems with taking your medication (rash, itching, nausea, etc.) call the office at once. Follow Up Care Test Results: Test results from this visit will be discussed in further detail at your follow-up appointment, if applicable. Discharge Plan Admission Admit Date/Time: 04/19/22 12:25 Attending Provider: Chalino Whitehead Primary Care Provider: Bartolo Mitchell Consulting Providers: Lex Puckett Discharge Orders/Prescriptions Prescriptions: New acetaminophen 500 mg Tablet 1,000 mg PO TID Qty: 0 0RF Rx Instructions: Do not take more than 3000 mg Tylenol in a 24-hour period. oxycodone 5 mg Tablet 5 - 10 mg PO Q4H PRN PRN (Reason: As needed for pain) 5 Days Qty: 42 0RF sennosides-docusate sodium [Stool Softener-Stimulant Laxat] 8.6-50 mg Tablet 2 tab PO BID Qty: 30 0RF Rx Instructions: Take until first bowel movement, then as needed Continued potassium chloride 10 mEq capsule, extended release 10 meq PO DAILY buspirone 10 mg tablet 15 mg PO TID fluoxetine 40 mg capsule 20 mg PO DAILY risperidone 4 mg tablet 4 mg PO BID albuterol sulfate 2.5 mg /3 mL (0.083 %) solution for nebulization 2.5 mg INHALATION Q4H PRN (Reason: Sob &/Or Wheezing) Qty: 180 3RF benztropine 2 MG tablet 1 mg PO TID Label Comments: prevent side effects of medications donepezil [Aricept] 10 MG tablet 10 mg PO QHS pantoprazole 40 MG tablet 40 mg PO BID memantine [Namenda] 5 MG tablet 5 mg PO BID cholecalciferol (vitamin D3) 50 MCG tablet 50 mcg PO DAILY trazodone 50 mg Tablet 50 mg PO QHS aspirin 81 mg Tablet 81 mg PO DAILY furosemide [Lasix] 40 mg Tablet 40 mg PO DAILY metoprolol tartrate [Lopressor] 50 mg tablet 50 mg PO BID montelukast [Singulair] 10 mg tablet 10 mg PO QHS budesonide-formoterol [Symbicort] 160-4.5 mcg/actuation HFA aerosol inhaler 1 puff INHALATION BID PRN (Reason: COPD) Rx Instructions: administer with spacer, rinse mouth after each use Fasenra 30 mg/mL syringe 30 mg SC Q8W Qty: 1 11RF atorvastatin 40 mg tablet 40 mg PO QHS Qty: 30 11RF warfarin 1 mg tablet 1 mg PO .COMPLEX Qty: 45 3RF Protocol: Dose Management Condition: Sunday Dose/Route: 6 mg Instruction: 1 x 6 mg tablet Condition: Sunday Dose/Route: 6 mg Instruction: 1 x 6 mg tablet Condition: Sunday Dose/Route: 7.5 mg Instruction: 1.5 x 5 mg tablets Condition: Sunday Dose/Route: 7.5 mg Instruction: 1.5 x 5 mg tablets Condition: Dose/Route: 7.5 mg Instruction: 1.5 x 5 mg tablets Condition: Sunday Dose/Route: 6 mg Instruction: 1 x 6 mg tablet Condition: Sunday Dose/Route: 6 mg Instruction: 1 x 6 mg tablet Protocol Text: Adjustment Start Date: 04/06/22 INR Value: 2.9 INR Date: 04/04/22 Recheck Date: 04/20/22 Rx Instructions: 1 mg PO take 1.5 tablets with a 6 mg tablet on Sunday and Sunday, or as directed; warfarin 6 mg tablet 6 mg PO .COMPLEX Qty: 90 3RF Protocol: Dose Management Condition: Sunday Dose/Route: 6 mg Instruction: 1 x 6 mg tablet Condition: Sunday Dose/Route: 6 mg Instruction: 1 x 6 mg tablet Condition: Sunday Dose/Route: 7.5 mg Instruction: 1.5 x 5 mg tablets Condition: Sunday Dose/Route: 7.5 mg Instruction: 1.5 x 5 mg tablets Condition: Dose/Route: 7.5 mg Instruction: 1.5 x 5 mg tablets Condition: Sunday Dose/Route: 6 mg Instruction: 1 x 6 mg tablet Condition: Sunday Dose/Route: 6 mg Instruction: 1 x 6 mg tablet Protocol Text: Adjustment Start Date: 04/06/22 INR Value: 2.9 INR Date: 04/04/22 Recheck Date: 04/20/22 Rx Instructions: 6 mg PO daily Sunday through : take with 1.5 of 1 mg tablet to = 7.5 mg on Fridays and Saturdays, or as directed.; warfarin 5 mg tablet 5 mg PO .COMPLEX Qty: 90 3RF Protocol: Dose Management Condition: Sunday Dose/Route: 6 mg Instruction: 1 x 6 mg tablet Condition: Sunday Dose/Route: 6 mg Instruction: 1 x 6 mg tablet Condition: Sunday Dose/Route: 7.5 mg Instruction: 1.5 x 5 mg tablets Condition: Sunday Dose/Route: 7.5 mg Instruction: 1.5 x 5 mg tablets Condition: Dose/Route: 7.5 mg Instruction: 1.5 x 5 mg tablets Condition: Sunday Dose/Route: 6 mg Instruction: 1 x 6 mg tablet Condition: Sunday Dose/Route: 6 mg Instruction: 1 x 6 mg tablet Protocol Text: Adjustment Start Date: 04/06/22 INR Value: 2.9 INR Date: 04/04/22 Recheck Date: 04/20/22 Rx Instructions: 5 mg PO Take 5 mg daily or as directed for dose changes. Discontinued acetaminophen 500 mg capsule 500 mg PO TID PRN (Reason: for arm pain per PCP) Referrals / Follow Up: Bartolo Mitchell DO [Primary Care Provider] - Shaggy Barraza PA-C [Med Staff - [facility]] - 05/04/22 1:15 pm Physical,Therapy [Other] - 05/04/22 2:30 pm Disposition Disposition (needs filled in before D/C Order can be placed): Home, Self Care
--- NOTE | 2022-04-20 10:10 | CASEMGMT ---
JACQUE CAMARA Face to Face with patient for initial transition planning/care coordination assessment. RN CM introduced self and role at [facility]. Patient sitting in chair, alert and oriented. Patient willing to participate in assessment and is able to answer all questions appropriately. Care providers, pharmacy, and demographics verified. Patient wishes to discharge home and is scheduled to start outpatient therapy in 2 weeks. Patient states he has no further needs or concerns at this time. CM to follow for discharge planning needs that may arise. PCP: Paula Specialists: joni Whitehead; Errol, corporate associate attorney; Rosemary, oncologist Preferred Pharmacy:[facility] Insurance: [facility] Prescription Benefit: yes Living Will/HPOA: none LNOK: Living Arrangements: Patient lives in a 2 story townhouse with bed and bath on first floor. Patient states he is independent and able to ambulate stairs at home. Transportation: DME/HHC: Patient states he has cane, raised toilet, and nebulizer at home. Patient has perviously been to [facility]. No previous HHC. Disposition Plan: Patient to discharge home with family support and follow-up plans in place. Kelly COUGHLIN, RN, CM
--- NOTE | 2022-04-20 10:15 | CASEMGMT ---
JACQUE CM in to complete MERRITT form with patient. RN JAX explained MERRITT form to patient, patient voiced understanding. Patient signed MERRITT form and filed in chart. Patient provided with copy of signed MERRITT form. Patient had no further questions or concerns at this time.
--- NOTE | 2022-04-20 10:48 | PHA.DC.MC ---
Pharmacy Service has performed discharge medication reconciliation and counseling for this patient. The patient was counseled on the following discharge medications and changes in medications for homegoing were reviewed. The Reason for Use, instructions for use, and potential side effects were reviewed for all new medications. The patient's questions regarding all of their medications were answered. The patient was able to verbally demonstrate an understanding of their discharge medications. Home Medications benztropine 2 mg tablet 1 mg PO TID shaking 10/20/15 buspirone 10 mg tablet 15 mg PO TID anxiety 09/12/18 potassium chloride 10 mEq capsule,extended release 10 meq PO DAILY supplement 09/12/18 donepezil 10 mg tablet (Aricept) 10 mg PO QHS memory 10/03/18 fluoxetine 40 mg capsule 20 mg PO DAILY mental health 04/19/20 cholecalciferol (vitamin D3) 50 mcg (2,000 unit) tablet 50 mcg PO DAILY vitamin 11/01/20 memantine 5 mg tablet (Namenda) 5 mg PO BID memory 11/01/20 pantoprazole 40 mg tablet,delayed release 40 mg PO BID reflux 11/01/20 benralizumab 30 mg/mL subcutaneous syringe (Fasenra) 30 mg subcut Q8W #1 mL 04/11/21 trazodone 50 mg tablet 50 mg PO QHS sleep 08/15/21 aspirin 81 mg tablet 81 mg PO DAILY 09/27/21 atorvastatin 40 mg tablet 40 mg PO QHS #30 tabs 11/03/21 warfarin 1 mg tablet 1 mg PO .COMPLEX #45 tabs 01/09/22 warfarin 6 mg tablet 6 mg PO .COMPLEX #90 tabs 01/09/22 warfarin 5 mg tablet 5 mg PO .COMPLEX #90 tabs 01/23/22 albuterol sulfate 2.5 mg/3 mL (0.083 %) solution for nebulization 2.5 mg (3 mL) inhalation Q4H PRN Sob &/Or Wheezing #180 mL 02/02/22 risperidone 4 mg tablet 4 mg PO BID 02/02/22 budesonide-formoterol HFA 160 mcg-4.5 mcg/actuation aerosol inhaler (Symbicort) 1 puff inhalation BID PRN COPD 04/07/22 furosemide 40 mg tablet (Lasix) 40 mg PO DAILY 04/07/22 metoprolol tartrate 50 mg tablet (Lopressor) 50 mg PO BID 04/07/22 montelukast 10 mg tablet (Singulair) 10 mg PO QHS allergies 04/07/22 acetaminophen 500 mg tablet 1,000 mg PO TID #0 tabs 04/20/22 oxycodone 5 mg tablet 5 - 10 mg PO Q4H PRN PRN As needed for pain 5 days #42 tabs 04/20/22 sennosides 8.6 mg-docusate sodium 50 mg tablet (Stool Softener-Stimulant Laxative) 2 tab PO BID #30 tabs 04/20/22 The patient's discharge medication list was reviewed for discrepancies and discrepancies were resolved.
--- NOTE | 2022-04-20 11:23 | CASEMGMT ---
JACQUE CAMARA NOTE: Spoke w/pt's in room. Per , appt scheduled for f/u w/EVELINE Coon, @ [facility] on 05/04 @ 1:15 PM, followed by 1st OP PT appt @ [facility] @ 2:30 on the same day. Call placed to [facility] and appts were confirmed. Melissa COUGHLIN RN, CM
== END 2022-04-20 13:35 | disposition home or self-care (01) ==
LOC: SDC 12:25 → MS3 12:25
PROVIDERS: Anesthesiology; Admitting Provider Specialist; PCP Preventive Medicine Occupational Medicine; Referring Provider Specialist; Visit Provider Specialist
PROC: (CPT 23472; principal; 2022-04-19 09:30)
DX: M19.011 Primary osteoarthritis, right shoulder (principal); M00.111 Pneumococcal arthritis, right shoulder; F03.90 Unspecified dementia, unspecified severity, without behavioral disturbance, psychotic disturbance, mood disturbance, and anxiety; J43.9 Emphysema, unspecified; F31.9 Bipolar disorder, unspecified; E78.00 Pure hypercholesterolemia, unspecified; Z87.891 Personal history of nicotine dependence; G47.33 Obstructive sleep apnea (adult) (pediatric); K21.9 Gastro-esophageal reflux disease without esophagitis; I25.10 Atherosclerotic heart disease of native coronary artery without angina pectoris; Z79.899 Other long term (current) drug therapy; Z79.82 Long term (current) use of aspirin; Z79.01 Long term (current) use of anticoagulants; Z95.1 Presence of aortocoronary bypass graft; Z95.2 Presence of prosthetic heart valve
CPT/HCPCS: 23472; 01638; 64415; 36415; 36416; 73030; 80048; 80076; 82040; 82962; 83036; 83735; 85025; 85027; 85610; 85730; 87077; 87081; 88305; 88311; 93005; 94640; 96361; 96365; 96366; 97166; 97535; 99218; 99251; C1713; C1776; J7040; J7120; G0378; G0463

== ENCOUNTER 2022-06-15 12:11 | Outpatient (RCR) | payer MEDICARE, SELFPAY ==
[2022-04-02 02:58] VITALS: BMI 34.7
[2022-06-15 12:41] LABS: International Normalized Ratio 2.6; Prothrombin Time (Protime)PT. 27.7 SECONDS (11.7-14.9)
== END 2022-07-03 09:59 | disposition home or self-care (01) ==
LOC: LAB 12:11
PROVIDERS: Specialist; Family Provider Preventive Medicine Occupational Medicine; PCP Preventive Medicine Occupational Medicine; Referring Provider Internal Medicine Cardiovascular Disease; Visit Provider Internal Medicine Cardiovascular Disease
DX: Z95.2 Presence of prosthetic heart valve (principal); Z79.01 Long term (current) use of anticoagulants
CPT/HCPCS: 36415; 85610

== ENCOUNTER 2022-09-29 09:36 | Outpatient (RCR) | payer MEDICARE, SELFPAY ==
[2022-07-04 10:00] VITALS: BMI 34.7
[2022-09-14 10:08] LABS: Prothrombin Time (Protime)PT. 38.6 SECONDS (11.7-14.9)
== END 2022-09-29 11:00 | disposition home or self-care (01) ==
LOC: LAB 09:36
PROVIDERS: Family Provider Preventive Medicine Occupational Medicine; PCP Preventive Medicine Occupational Medicine; Referring Provider Internal Medicine Cardiovascular Disease; Visit Provider Internal Medicine Cardiovascular Disease
DX: Z95.2 Presence of prosthetic heart valve (principal); Z79.01 Long term (current) use of anticoagulants
CPT/HCPCS: 36415; 85610

== ENCOUNTER 2022-11-14 12:42 | Outpatient (RCR) | payer MEDICARE, SELFPAY ==
[2022-10-04 08:28] VITALS: BMI 34.7
[2022-11-14 13:28] LABS: Absolute Lymphocyte Count 1.87 X10^3/uL (0.83-4.51); Absolute Neutrophil Count 6.1 X10^3/uL (2.0-7.7); Basophil# 0.02 X10^3/uL; Basophil% 0.2 % (0-1); Hematocrit 40.2 % (40-54); Hemoglobin 12.9 g/dL (13.0-16.5); Lymphocyte # 1.87 X10^3/ul (0.83-4.51); Lymphocyte % 21.1 % (19-41); Mean Corp Hgb Conc 32.1 g/dL (32-36); Mean Corpuscular Hgb 32.3 pg (27.0-32.0); Mean Corpuscular Volume 100.5 fL (80-94); Mean Platelet Vol. 9.1 fl (6.2-12.0); Monocyte# 0.87 X10^3/uL; Monocyte% 9.8 % (0-10); NRBC Flagged by Analyzer 0 % (0-5); Neutrophil # 6.06 X10^3/uL (2.7-7.7); Neutrophil % 68.6 % (47-70); Platelet Count 212 K/mm3 (150-450); RBC Distribution Width SD 51.2 fl (35.1-43.9); White Blood Count 8.9 K/mm3 (4.4-11.0)
[2022-11-14 13:39] LABS: International Normalized Ratio 3.3; Prothrombin Time (Protime)PT. 32.9 SECONDS (11.7-14.9)
[2022-11-14 13:54] LABS: Anion Gap 6 (5-15); BNP,B-Type NATRIURETIC PEPTIDE 85.4 pg/mL (0-100); BUN 11 mg/dL (7-18); BUN/Creat Ratio 13.3 RATIO (10-20); Calcium,Total 8.1 mg/dL (8.5-10.1); Chloride 103 mmol/L (98-107); Creatinine, Serum 0.83 mg/dL (0.70-1.30); EST Glomerular Filtration Rate 99 mL/min (>60); Est Glom Filt Rate - Afr Amer 119 mL/min (>60); Glucose 143 mg/dL (74-106); Potassium 4.2 mmol/L (3.5-5.1); Sodium Level 135 mmol/L (136-145)
== END 2022-12-01 23:22 | disposition home or self-care (01) ==
LOC: LAB 12:42
PROVIDERS: Nurse Practitioner Family; Family Provider Preventive Medicine Occupational Medicine; PCP Preventive Medicine Occupational Medicine; Referring Provider Internal Medicine Cardiovascular Disease; Visit Provider Internal Medicine Cardiovascular Disease
DX: Z95.2 Presence of prosthetic heart valve (principal); Z79.01 Long term (current) use of anticoagulants; R06.09 Other forms of dyspnea; I25.5 Ischemic cardiomyopathy; Z95.1 Presence of aortocoronary bypass graft
CPT/HCPCS: 36415; 80048; 83880; 85025; 85610

== ENCOUNTER → 2022-11-22 | Outpatient (CLI) | payer MEDICARE, SELFPAY ==
--- NOTE | 2022-11-22 09:59 | ECHOCS_ITS ---
Reason For Study: Dyspnea/SOB Procedure This was a 2D Doppler, Color Flow transthoracic echocardiogram. The study was technically difficult. Contrast injection was performed. Exam performed in department. Left Ventricle Normal LV size. Moderate concentric left ventricular hypertrophy. Left ventricular systolic function is normal. The estimated ejection fraction is 55 %. No regional wall motion abnormalities noted. Right Ventricle Normal RV size. Normal systolic function. Atria The left atrium is mildly enlarged. Normal right atrium. Mitral Valve Normal mitral valve. Tricuspid Valve Normal tricuspid valve. Unable to estimate RV systolic pressure due to inadequate jet, pulmonary artery pressure probably normal. Aortic Valve The aortic valve is not well visualized. Pulmonic Valve The pulmonic valve is not well visualized. Great Vessels Moderately dilated aortic root. The pulmonary artery is normal size. Normal inferior vena cava. Pericardium/Pleural No pericardial effusion. Medication 22 gauge I.V. with prn adaptor inserted into right arm. Diluted definity 4ml given slow IV push to enhance endocardial definition. MMode/2D Measurements & Calculations LVIDd: 4.8 cm IVSd: 1.4 cm LVOT diam: 2.2 cm LVIDs: 3.7 cm LVPWd: 1.5 cm RVDd: 4.0 cm FS: 22.3 % LVOT area: 3.7 cm2 Ao root diam: 5.6 cm LAV(MOD-bp): 68.0 ml LVAd ap4: 42.1 cm2 LAV(MOD-bp) Indexed: 28.9 ml/m2 LVLd ap4: 9.3 cm LAV(MOD-sp2): 71.9 ml EDV(MOD-sp4): 157.0 ml LAV(MOD-sp4): 62.7 ml EDV(sp4-el): 162.3 ml LVAs ap4: 29.7 cm2 LVLs ap4: 8.2 cm ESV(MOD-sp4): 87.1 ml ESV(sp4-el): 91.7 ml EF(MOD-sp4): 44.5 % EF(sp4-el): 43.5 % SV(MOD-sp4): 69.9 ml SV(sp4-el): 70.6 ml LA A4 area: 22.0 cm2 RA A4 area: 16.6 cm2 Time Measurements MV dec time: 0.18 sec Doppler Measurements & Calculations MV E max troy: 67.8 cm/sec Lat Peak E' [place]: 9.2 cm/sec Med Peak E' [place]: 10.6 cm/sec MV A max troy: 118.3 cm/sec E/E' lat: 7.4 E/E' med: 6.4 MV E/A: 0.57 MV V2 max: 117.1 cm/sec Ao V2 max: 187.6 cm/sec LV V1 max: 96.0 cm/sec MV max P.5 mmHg Ao max P.1 mmHg LV V1 max P.7 mmHg MV V2 mean: 68.3 cm/sec Ao V2 mean: 121.5 cm/sec LV V1 mean P.3 mmHg MV mean P.3 mmHg Ao mean P.1 mmHg LV V1 mean: 70.3 cm/sec MV V2 VTI: 20.1 cm Ao V2 VTI: 38.7 cm LV V1 VTI: 19.9 cm MVA(VTI): 3.7 cm2 AV (velocity ratio): 0.51 JOCELYN(I,D): 1.9 cm2 JOCELYN(V,D): 1.9 cm2 SV(LVOT): 74.1 ml ECHO/Echo Complete W/ Contrast Interpretation Summary Normal LV size. Moderate concentric left ventricular hypertrophy. Left ventricular systolic function is normal. The estimated ejection fraction is 55 %. Moderately dilated aortic root. The aortic valve is not well visualized. Contrast injection was performed. Ordering Physician: Conor Cagle Referring Physician: Bartolo Mitchell Performed By: Terence Castro RCS
== END | disposition home or self-care (01) ==
LOC: CVS 09:58
PROVIDERS: PCP Preventive Medicine Occupational Medicine; Referring Provider Nurse Practitioner Family; Visit Provider Nurse Practitioner Family
DX: R06.00 Dyspnea, unspecified (principal)
CPT/HCPCS: 93306; Q9957; A4216; C8929

== ENCOUNTER → 2022-11-30 | Outpatient (CLI) | payer MEDICARE, SELFPAY ==
--- NOTE | 2022-11-30 14:25 | CT_ITS ---
STUDY: CTA CHEST REASON FOR EXAM: Male, 66 years old. Evaluated aortic root, SOB RADIATION DOSAGE (If Supplied By Facility): CTDIvol = ( 16.16 ) mGy, DLP = ( 747.68 ) mGycm TECHNIQUE: The examination was performed with the intravenous administration of IV 100mL [id number]-370. Post-processing of the angiographic images was performed, with multiplanar reformation and 3D reconstruction. Individualized dose optimization techniques were used for this CT. COMPARISON: None. FINDINGS: Normal enhancement of the main pulmonary artery and right and left pulmonary arteries. Normal enhancement of the bilateral peripheral pulmonary arteries. There is no demonstrated pulmonary embolism. Dilated ascending aorta measuring 4.67 cm in diameter. There is no demonstrated aortic dissection. Normal heart and pericardium. Normal mediastinum. Normal hilar regions. Normal visualized trachea and bronchi. The lungs are well expanded. Normal pulmonary parenchyma. Normal pleura. Normal chest wall structures. Normal osseous structures. Bilateral renal cysts. CT/CTA Chest W/WO Contrast IMPRESSION: No demonstrated pulmonary embolism or arterial dissection. Dilated ascending aorta. Electronically Signed: Rolando Lou DO at 21:26 EDT Reading Location ID and State: [facility] / [place] Tel [phone], Service support ,
== END | disposition home or self-care (01) ==
LOC: CT 14:24
PROVIDERS: PCP Preventive Medicine Occupational Medicine; Referring Provider Nurse Practitioner Family; Visit Provider Nurse Practitioner Family
DX: I77.810 Thoracic aortic ectasia (principal)
CPT/HCPCS: 71275; Q9967

== ENCOUNTER 2023-03-13 14:05 | Outpatient (RCR) | payer MEDICARE, SELFPAY ==
[2022-12-01 23:22] VITALS: BMI 34.7
[2023-03-13 15:36] LABS: International Normalized Ratio 3.2; Prothrombin Time (Protime)PT. 33.6 SECONDS (11.7-14.9)
== END 2023-04-02 18:00 | disposition home or self-care (01) ==
LOC: LAB 14:05
PROVIDERS: Family Provider Preventive Medicine Occupational Medicine; PCP Preventive Medicine Occupational Medicine; Referring Provider Internal Medicine Cardiovascular Disease; Visit Provider Internal Medicine Cardiovascular Disease
DX: Z95.2 Presence of prosthetic heart valve (principal); Z79.01 Long term (current) use of anticoagulants
CPT/HCPCS: 36415; 85610

== ENCOUNTER → 2023-06-19 | Outpatient (CLI) | payer MEDICARE, SELFPAY ==
--- NOTE | 2023-06-20 08:59 | STRESSREP ---
Stress Test Report Pharmacologic myocardial perfusion stress test. 67-year-old man with a history of shortness of breath Resting EKG demonstrates sinus rhythm with a rate of 66 bpm. Left bundle branch block pattern was noted resting blood pressure is 110/72 mmHg. 0.4 mg of regadenoson was infused per usual protocol followed by rapid intravenous saline flush injection. Continuous EKG monitoring was performed. The maximum heart rate was 91 bpm which was 59% of max impacted heart rate the maximum workload was 1 metabolic equivalent. At rest there were no ST or T wave changes noted to suggest ischemia and at peak infusion nonspecific ST changes were noted which did not meet the criteria for ischemia. No clinical angina is noted. The final blood pressure was 120/70 mmHg. Myocardial perfusion protocol. 14.8 mCi of technetium 99m sestamibi was injected at rest. 0.4 mg of regadenoson was infused per usual protocol. At peak infusion 44.7 mCi of technetium 99m sestamibi was injected stress images were obtained stress and rest images were reconstructed and compared in the short axis vertical long and horizontal long axis. Gated images were also obtained. Perfusion SPECT analysis: Review of the stress images demonstrate normal uptake of tracer noted in all areas of the myocardium except for the apex with reduced perfusion. The resting images similar demonstrated normal uptake of tracer noted in all areas of the myocardium except for the apex with reduced perfusion. No areas of reversibility are noted to suggest ischemia and a previous apical infarct could not be excluded. Gated SPECT analysis: The gated ejection fraction is 48%. Conclusion: Normal pharmacologic myocardial perfusion stress test. No ischemia is noted and a previous apical infarct cannot be completely excluded Low normal ejection fraction.
== END | disposition home or self-care (01) ==
LOC: CVS 06:03
PROVIDERS: PCP Preventive Medicine Occupational Medicine; Referring Provider Nurse Practitioner Family; Visit Provider Nurse Practitioner Family
DX: R06.09 Other forms of dyspnea (principal); Z95.1 Presence of aortocoronary bypass graft; Z95.5 Presence of coronary angioplasty implant and graft
CPT/HCPCS: 78452; 93017; A9500; A4216; J2785

== ENCOUNTER 2023-08-17 11:42 | Outpatient (RCR) | payer MEDICARE, SELFPAY ==
[2023-04-03 01:05] VITALS: BMI 34.7
[2023-08-17 12:13] LABS: International Normalized Ratio 2.7; Prothrombin Time (Protime)PT. 28.7 SECONDS (11.7-14.9)
== END 2023-09-02 18:00 | disposition home or self-care (01) ==
LOC: LAB 11:42
PROVIDERS: Family Provider Preventive Medicine Occupational Medicine; PCP Preventive Medicine Occupational Medicine; Referring Provider Internal Medicine Cardiovascular Disease; Visit Provider Internal Medicine Cardiovascular Disease
DX: Z95.2 Presence of prosthetic heart valve (principal); Z79.01 Long term (current) use of anticoagulants
CPT/HCPCS: 36415; 85610

== ENCOUNTER 2023-09-04 13:15 | Emergency (ER) | payer MEDICARE, SELFPAY ==
[2023-09-04] VITALS (7 sets, daily range): BP systolic 123–157; BP diastolic 74–82; PULSE 115–135; RESP 13–24; TEMP 36.3–38.1; O2SAT 93–96; BMI 30.4
--- NOTE | 2023-09-04 13:58 | RAD_ITS ---
INDICATION: cough sob copd EXAMINATION/TECHNIQUE: X-RAY - XR Chest 2 Views COMPARISON: Prior study dated: 08/15/2021 FINDINGS: LINES/DEVICES: None. LUNGS: No consolidation, edema or effusion. No pneumothorax. MEDIASTINUM AND CARDIOVASCULAR STRUCTURES: Status post median sternotomy. External cardiac pacer device or monitor overlying the left chest. BONES AND SOFT TISSUES: No demonstrated acute osseous changes. RAD/Chest PA and Lateral IMPRESSION: No radiographic evidence of acute cardiopulmonary disease. Electronically Signed: Vargas Anne MD at 14:52 EST ,
--- NOTE | 2023-09-04 14:00 | EDS_ITS ---
HPI History of Present Illness Chief Complaint: Shortness of Breath Informant: patient and family Narrative Narrative: Patient started feeling short of breath this morning. He admits to having a cough with some white sputum. He has inhalers at home and does not know why, EMR shows a history of COPD. He is not on home oxygen. He states he is having some chest discomfort lower substernal that feels like grabbing . He did not know he had any fevers at home, but he has a temperature of 100.6 here. Yesterday he had 2-3 episodes of vomiting, he did not feel like he aspirated. The son who is with him states that everyone in the house has had stomach flu s ymptoms recently. The patient has had no diarrhea or abdominal pain. No leg swelling acutely today. 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 Lumbar disc disease Marijuana use Non-ST elevation (NSTEMI) myocardial infarction Nonrheumatic aortic (valve) stenosis with insufficiency Peptic ulcer disease Restless legs Right rotator cuff tear arthropathy Shortness of breath on exertion Sleep apnea Wears dentures Wears glasses Wide-complex tachycardia Home Medications benztropine 2 mg tablet 1 mg PO TID shaking 10/20/15 [History Last Taken 11/05/20 07:00] buspirone 10 mg tablet 15 mg PO TID anxiety 09/12/18 [History Last Taken 04/19/22] potassium chloride 10 mEq capsule,extended release 10 meq PO DAILY supplement 09/12/18 [History Last Taken 10/03/18 09:00 10 meq] donepezil 10 mg tablet (Aricept) 10 mg PO QHS memory 10/03/18 [History Last Taken 04/19/22] fluoxetine 40 mg capsule 20 mg PO DAILY mental health 04/19/20 [History Last Taken 04/19/22] cholecalciferol (vitamin D3) 50 mcg (2,000 unit) tablet 50 mcg PO DAILY vitamin 11/01/20 [History Last Taken Unknown] memantine 5 mg tablet (Namenda) 5 mg PO BID memory 11/01/20 [History Last Taken Unknown] pantoprazole 40 mg tablet,delayed release 40 mg PO BID reflux 11/01/20 [History Last Taken 04/19/22] trazodone 50 mg tablet 50 mg PO QHS sleep 08/15/21 [History Last Taken Unknown] aspirin 81 mg tablet 81 mg PO DAILY 09/27/21 [History Last Taken 09/27/21] albuterol sulfate 2.5 mg/3 mL (0.083 %) solution for nebulization 2.5 mg (3 mL) inhalation Q4H PRN Sob &/Or Wheezing #180 mL 02/02/22 [Rx Last Taken Unknown] risperidone 4 mg tablet 4 mg PO BID 02/02/22 [History Last Taken Unknown] furosemide 40 mg tablet (Lasix) 40 mg PO DAILY 04/07/22 [History Last Taken Unknown] montelukast 10 mg tablet (Singulair) 10 mg PO QHS allergies 04/07/22 [History Last Taken Unknown] acetaminophen 500 mg tablet 1,000 mg (2 x 500 mg) PO TID #0 tabs 04/20/22 [Rx Last Taken Unknown] oxycodone 5 mg tablet 5 - 10 mg (1 - 2 x 5 mg) PO Q4H PRN PRN As needed for pain 5 days #42 tabs 04/20/22 [Rx Last Taken Unknown] sennosides 8.6 mg-docusate sodium 50 mg tablet (Stool Softener-Stimulant Laxative) 2 tab PO BID #30 tabs 04/20/22 [Rx Last Taken Unknown] benralizumab 30 mg/mL subcutaneous syringe (Fasenra) 30 mg subcut Q8W #1 mL 09/14/22 [Rx Last Taken Unknown] metoprolol tartrate 50 mg tablet (Lopressor) 50 mg PO BID #180 tabs 12/10/22 [Rx Last Taken Unknown] atorvastatin 40 mg tablet 40 mg PO QHS #90 tabs 01/09/23 [Rx Last Taken Unknown] warfarin 5 mg tablet 5 mg PO .COMPLEX #90 tabs 04/05/23 [Rx Last Taken Unknown] azithromycin 250 mg tablet See Rx Instructions PO .COMPLEX #6 tabs 07/17/23 [Rx Last Taken Unknown] budesonide-formoterol HFA 160 mcg-4.5 mcg/actuation aerosol inhaler (Symbicort) 1 puff inhalation BID COPD #10.2 grams 07/17/23 [Rx Last Taken Unknown] warfarin 1 mg tablet 1 mg PO .COMPLEX #45 tabs 07/30/23 [Rx Last Taken Unknown] warfarin 6 mg tablet 6 mg PO .COMPLEX #90 tabs 07/30/23 [Rx Last Taken Unknown] doxycycline monohydrate 100 mg capsule 100 mg PO BID #14 CAPSULES 09/04/23 [Rx Last Taken Unknown] prednisone 10 mg tablet 10 mg PO UD #33 tabs 09/04/23 [Rx Last Taken Unknown] Allergy/AdvReac Type Severity Reaction Status Date / Time Iodinated Contrast Media Allergy Shortness Verified 09/04/23 13:16 [CONTRASTS] of breath iodine Allergy Other Verified 09/04/23 13:16 Family History Father CAD (coronary artery disease) Mother CAD (coronary artery disease) Sister CAD (coronary artery disease) CVA (cerebral vascular accident) Surgical History Abdominal Aortagram (08/18/13) H/O coronary artery bypass surgery (01/2003) History of appendectomy History of coronary artery stent placement (07/15/12) History of foreign body in respiratory tract History of left heart catheterization (09/27/21) History of lumbar spinal fusion (06/29/14) History of mechanical aortic valve replacement History of repair of right rotator cuff Status post placement of implantable loop recorder (2004) Social History Smoking Status: Former smoker quit date: 06/12/04 Tobacco: How many years used: 15 ROS ROS ED Constitutional Constitutional ED: Reports malaise; Denies chills or fever(s) Eyes Eyes: Denies change in vision or diplopia ENT ENT ED: Denies rhinorrhea or sore throat Cardiovascular Cardiovascular: Reports chest pain; Denies palpitations Respiratory/Chest Respiratory/Chest: Reports cough, dyspnea and sputum Gastrointestinal Gastrointestinal: Reports nausea and vomiting; Denies abdominal pain or diarrhea Genitourinary Genitourinary ED: Denies dysuria or hematuria Musculoskeletal Musculoskeletal: Denies back pain or neck pain Integumentary Denies abscess or rash Neurologic Neurologic: Denies headache(s), paresthesias or weakness Psychiatric Psychiatric: Denies anxiety or suicidal thoughts EXAM Physical Exam Const Vital Signs: 09/04/23 13:16 09/04/23 13:37 09/04/23 13:39 Temperature 97.3 F L 100.6 F H Temperature Source Temporal Oral Pulse Rate 124 H 116 H Respiratory Rate 22 H 18 Respiratory Effort Short of Breath Respiratory Depth Normal Respiratory Pattern Tachypnea Blood Pressure 123/82 H 132/76 H Blood Pressure Mean 95 94 Pulse Ox 93 93 Oxygen Delivery Method Room Air Room Air Room Air 09/04/23 13:40 09/04/23 14:10 09/04/23 14:41 Temperature 100.6 F H Temperature Source Oral Pulse Rate 115 H 126 H Respiratory Rate 17 13 Respiratory Effort Respiratory Depth Respiratory Pattern Normal Blood Pressure 132/76 H Blood Pressure Mean 94 Pulse Ox 95 Oxygen Delivery Method Room Air Room Air 09/04/23 15:57 09/04/23 15:57 09/04/23 15:58 Temperature 99.4 F H 99.4 F H 99.4 F H Temperature Source Temporal Temporal Pulse Rate 135 H 135 H 135 H Respiratory Rate 24 H 22 H 22 H Respiratory Effort Respiratory Depth Respiratory Pattern Blood Pressure 157/74 H 157/74 H 157/74 H Blood Pressure Mean 101 101 101 Pulse Ox 94 94 94 Oxygen Delivery Method Room Air Room Air Positive well nourished and well developed General Appearance ED: well developed and NAD HEENT Reports moist mucous membranes normocephalic and atraumatic Eyes PERRL and EOMs intact bilaterally Neck full ROM, no lymphadenopathy, supple and no JVD Resp Resp Narrative: Mild tachypnea no distress. Diffuse expiratory wheezes and diminished throughout symmetrically, otherwise clear lungs. Cardio regular rate, regular rhythm and no murmurs Rate: tachycardic GI non-tender and non-distended Auscultation: normoactive bowel sounds Palpation: soft Back/Spine no CVA tenderness General Back: other FROM Extremity normal to inspection General Extremety ED: Negative for edema, pulses abnormal or tenderness General Extremity: Negative for edema or pulses abnormal Neuro oriented x3, CN's II-XII intact bilaterally and no sensory deficits noted Sensorium / Orientation: awake and alert Motor Exam: strength 5/5 throughout Skin no rashes or lesions noted and no wounds MDM MDM MDM Narrative Medical decision making narrative: After nebulizer treatments patient is breathing much better. Workup is negative for acute coronary injury, he did develop a low-grade temperature while he is here consistent with illness, COVID and influenza swabs are negative and chest x-ray 2 views of my interpretation negative for pneumonia. Radiology in agreement. He is not hypoxic at rest 94%. He is not on home oxygen. We ambulated him, he did not become hypoxic and wants to go home. Solu-Medrol given here will give him Tylenol prior to discharge for his fever in addition to some prophylactic antibiotics to prevent bacterial superinfection, as well as a course of prednisone for his COPD. Given discharge instructions to follow-up. Lab Data Attestation: I reviewed the patient's lab results. Labs: Laboratory Results - last 24 hr 09/04/23 14:00 WBC 7.3 RBC 4.58 L Hgb 14.0 Hct 44.6 MCV 97.4 H MCH 30.6 MCHC 31.4 L RDW Std Deviation 49.5 H RDW Coeff of Adalberto 13.8 Plt Count 182 MPV 8.6 Immature Gran % (Auto) 0.500 Neut % (Auto) 84.7 H Lymph % (Auto) 5.9 L [place] % (Auto) 8.8 Eos % (Auto) 0.0 Baso % (Auto) 0.1 Absolute Neuts (auto) 6.2 Absolute Lymphs (auto) 0.43 L Nucleated RBC % 0 Differential Comment COMMENT Sodium 137 Potassium 3.9 Chloride 106 Carbon Dioxide 27.0 Anion Gap 4 L BUN 12 Creatinine 1.06 Estim Creat Clear Calc 79.70 Est GFR (MDRD) Af Amer 90 Est GFR (MDRD) Non-Af 74 BUN/Creatinine Ratio 11.3 Glucose 124 H Calcium 8.5 Troponin I High Sens 11 Radiography Chest X-Ray - ED: 2 View, Read by ED Physician and No Infiltrates Diagnostic Testing: Clinical Impression(s) from Imaging Studies Chest X-Ray 09/04/23 13:58 IMPRESSION: No radiographic evidence of acute cardiopulmonary disease. Electronically Signed: Vargas Anne MD at 14:52 EST , Rhythm Strip Rhythm Strip: Sinus Rhythm Rate: 105 Ectopy: None EKG Initial EKG: Attestation: I personally reviewed and interpreted this EKG as follows: Interpretation: No Acute Injury Pattern, Sinus Tachycardia and LBBB Prior EKG tracings: available for review Prior: Unchanged Discharge Plan Triage Chief Complaint: Shortness of Breath ED Provider: Ankush Weber Dx/Rx/DC Orders Clinical Impression: Acute exacerbation of chronic obstructive pulmonary disease (COPD), Acute viral bronchitis, Chest pain, unspecified Instructions: ED COPD Flare Prescriptions: New prednisone 10 mg tablet 10 mg PO UD Qty: 33 0RF Rx Instructions: Take 4 tablets daily for 3 days, then 3 daily for 3 days, then 2 daily for 3 days, then 1 a day for 3 days then 1 QOD for 3 doses. doxycycline monohydrate 100 mg capsule 100 mg PO BID Qty: 14 0RF No Action potassium chloride 10 mEq capsule, extended release 10 meq PO DAILY buspirone 10 mg tablet 15 mg PO TID fluoxetine 40 mg capsule 20 mg PO DAILY risperidone 4 mg tablet 4 mg PO BID albuterol sulfate 2.5 mg /3 mL (0.083 %) solution for nebulization 2.5 mg INHALATION Q4H PRN (Reason: Sob &/Or Wheezing) Qty: 180 3RF Fasenra 30 mg/mL syringe 30 mg SC Q8W Qty: 1 11RF azithromycin 250 mg tablet See Rx Instructions PO .COMPLEX Qty: 6 0RF Rx Instructions: For 250 mg dose pack: take 500 mg today (day 1), then 250 mg for 4 days (days 2-5) PO budesonide-formoterol [Symbicort] 160-4.5 mcg/actuation HFA aerosol inhaler 1 puff INHALATION BID Qty: 10.2 11RF Rx Instructions: administer with spacer, rinse mouth after each use benztropine 2 MG tablet 1 mg PO TID Patient Comments: prevent side effects of medications donepezil [Aricept] 10 MG tablet 10 mg PO QHS pantoprazole 40 MG tablet 40 mg PO BID memantine [Namenda] 5 MG tablet 5 mg PO BID cholecalciferol (vitamin D3) 50 MCG tablet 50 mcg PO DAILY trazodone 50 mg Tablet 50 mg PO QHS aspirin 81 mg Tablet 81 mg PO DAILY furosemide [Lasix] 40 mg Tablet 40 mg PO DAILY montelukast [Singulair] 10 mg tablet 10 mg PO QHS acetaminophen 500 mg Tablet 1,000 mg PO TID Qty: 0 0RF Rx Instructions: Do not take more than 3000 mg Tylenol in a 24-hour period. oxycodone 5 mg Tablet 5 - 10 mg PO Q4H PRN PRN (Reason: As needed for pain) 5 Days Qty: 42 0RF sennosides-docusate sodium [Stool Softener-Stimulant Laxat] 8.6-50 mg Tablet 2 tab PO BID Qty: 30 0RF Rx Instructions: Take until first bowel movement, then as needed metoprolol tartrate [Lopressor] 50 mg tablet 50 mg PO BID Qty: 180 3RF atorvastatin 40 mg tablet 40 mg PO QHS Qty: 90 3RF warfarin 5 mg tablet 5 mg PO .COMPLEX Qty: 90 3RF Protocol: Dose Management Condition: Sunday Dose/Route: 6 mg Instruction: 1 x 6 mg tablet Condition: Sunday Dose/Route: 6 mg Instruction: 1 x 6 mg tablet Condition: Sunday Dose/Route: 7.5 mg Instruction: 1.5 x 5 mg tablets Condition: Sunday Dose/Route: 6 mg Instruction: 1 x 6 mg tablet Condition: Dose/Route: 6 mg Instruction: 1 x 6 mg tablet Condition: Sunday Dose/Route: 6 mg Instruction: 1 x 6 mg tablet Condition: Sunday Dose/Route: 6 mg Instruction: 1 x 6 mg tablet Protocol Text: Adjustment Start Date: Sunday08/17/23 INR Value: 2.7 INR Date: 08/17/23 Recheck Date: 09/16/23 Rx Instructions: 5 mg PO Take 5 mg daily or as directed for dose changes. warfarin 1 mg tablet 1 mg PO .COMPLEX Qty: 45 3RF Protocol: Dose Management Condition: Sunday Dose/Route: 6 mg Instruction: 1 x 6 mg tablet Condition: Sunday Dose/Route: 6 mg Instruction: 1 x 6 mg tablet Condition: Sunday Dose/Route: 7.5 mg Instruction: 1.5 x 5 mg tablets Condition: Sunday Dose/Route: 6 mg Instruction: 1 x 6 mg tablet Condition: Dose/Route: 6 mg Instruction: 1 x 6 mg tablet Condition: Sunday Dose/Route: 6 mg Instruction: 1 x 6 mg tablet Condition: Sunday Dose/Route: 6 mg Instruction: 1 x 6 mg tablet Protocol Text: Adjustment Start Date: Sunday08/17/23 INR Value: 2.7 INR Date: 08/17/23 Recheck Date: 09/16/23 Rx Instructions: 1 mg PO take 1.5 tablets with a 6 mg tablet on Tuesdays, or as directed; warfarin 6 mg tablet 6 mg PO .COMPLEX Qty: 90 3RF Protocol: Dose Management Condition: Sunday Dose/Route: 6 mg Instruction: 1 x 6 mg tablet Condition: Sunday Dose/Route: 6 mg Instruction: 1 x 6 mg tablet Condition: Sunday Dose/Route: 7.5 mg Instruction: 1.5 x 5 mg tablets Condition: Sunday Dose/Route: 6 mg Instruction: 1 x 6 mg tablet Condition: Dose/Route: 6 mg Instruction: 1 x 6 mg tablet Condition: Sunday Dose/Route: 6 mg Instruction: 1 x 6 mg tablet Condition: Sunday Dose/Route: 6 mg Instruction: 1 x 6 mg tablet Protocol Text: Adjustment Start Date: Sunday08/17/23 INR Value: 2.7 INR Date: 08/17/23 Recheck Date: 09/16/23 Rx Instructions: 6 mg PO daily daily: take with 1.5 of 1 mg tablet to = 7.5 mg on Tuesdays, or as directed.; Primary Care Provider: Bartolo Mitchell Referrals: Bartolo Mitchell DO [Primary Care Provider] - 5-7 Days (or your pulmonary doctor if you have one) Disposition Disposition: Home, Self Care
[2023-09-04] MEDS: Ipratropium/Albuterol Sulfate 3 ML AMPUL.NEB INHALATION (14:07)
[2023-09-04] MEDS: MethylPREDNISolone 125 MG/2 ML Vial IV (14:07)
[2023-09-04 14:19] LABS: Absolute Lymphocyte Count 0.43 X10^3/uL (0.83-4.51); Absolute Neutrophil Count 6.2 X10^3/uL (2.0-7.7); Basophil# 0.01 X10^3/uL; Basophil% 0.1 % (0-1); Hematocrit 44.6 % (40-54); Lymphocyte # 0.43 X10^3/ul (0.83-4.51); Lymphocyte % 5.9 % (19-41); Mean Corp Hgb Conc 31.4 g/dL (32-36); Mean Corpuscular Hgb 30.6 pg (27.0-32.0); Mean Corpuscular Volume 97.4 fL (80-94); Mean Platelet Vol. 8.6 fl (6.2-12.0); Monocyte# 0.64 X10^3/uL; Monocyte% 8.8 % (0-10); NRBC Flagged by Analyzer 0 % (0-5); Neutrophil # 6.19 X10^3/uL (2.7-7.7); Neutrophil % 84.7 % (47-70); POSITIVE DIFFERENTIAL YES; Platelet Count 182 K/mm3 (150-450); RBC Distribution Width CV 13.8 % (11.6-14.6); RBC Distribution Width SD 49.5 fl (35.1-43.9); Red Blood Count 4.58 M/mm3 (4.6-6.2); White Blood Count 7.3 K/mm3 (4.4-11.0)
[2023-09-04 14:20] LABS: Differential Indicated SCAN CRITERIA MET
[2023-09-04 14:37] LABS: Anion Gap 4 (5-15); BUN 12 mg/dL (7-18); BUN/Creat Ratio 11.3 RATIO (10-20); Calcium,Total 8.5 mg/dL (8.5-10.1); Chloride 106 mmol/L (98-107); Creatinine, Serum 1.06 mg/dL (0.70-1.30); EST Glomerular Filtration Rate 74 mL/min (>60); Est Glom Filt Rate - Afr Amer 90 mL/min (>60); Glucose 124 mg/dL (74-106); Potassium 3.9 mmol/L (3.5-5.1); Sodium Level 137 mmol/L (136-145); Troponin-I HS 11 pg/mL (3.0-78.0)
[2023-09-04] MEDS: Albuterol 2.5 MG/3 ML VIAL.NEB. INHALATION ×3 (14:39)
[2023-09-04] MEDS: Acetaminophen 500 MG Tablet 1000 MG PO (15:54)
== END 2023-09-04 16:06 | disposition home or self-care (01) ==
PROVIDERS: Emergency Provider Emergency Medicine; PCP Preventive Medicine Occupational Medicine; Visit Provider Emergency Medicine
DX: J44.0 Chronic obstructive pulmonary disease with (acute) lower respiratory infection (principal); J44.1 Chronic obstructive pulmonary disease with (acute) exacerbation; J20.8 Acute bronchitis due to other specified organisms; I10 Essential (primary) hypertension; E87.5 Hyperkalemia; Z79.82 Long term (current) use of aspirin; Z79.01 Long term (current) use of anticoagulants; Z79.899 Other long term (current) drug therapy; Z95.1 Presence of aortocoronary bypass graft; Z86.73 Personal history of transient ischemic attack (TIA), and cerebral infarction without residual deficits; Z87.891 Personal history of nicotine dependence
CPT/HCPCS: 71046; 80048; 84484; 85025; 87428; 93005; 94640; 96374; 99284; A4216

== ENCOUNTER 2023-11-17 19:37 | Emergency (ER) | payer MEDICARE, SELFPAY ==
[2023-11-17] VITALS (13 sets, daily range): BP systolic 103–147; BP diastolic 72–109; PULSE 57–82; RESP 13–24; TEMP 36.6–37; O2SAT 95–99; BMI 31.5
--- NOTE | 2023-11-17 20:06 | EX.ED.DYSGE1 ---
HPI History of Present Illness Chief Complaint: General Illness Narrative Narrative: 67-year-old male presenting with chills. He states he felt cold at home and had some shaking and this was noticed by his daughter who went and got his who noticed the shaking as well. Patient was alert and awake throughout this. They looked at the thermostat and said it was 80 degrees in the house. Patient is currently feels a little bit cold but he is not having any chills. He takes deep breaths and hold his breath at times but his family states that is baseline. Patient has not had any fever. He does not feel ill like he is come down with a cough at home. He is not nauseous. He denies chest pain. Family was concerned because the last time he had chills like this they stated he came to the ER and was life flighted to [facility]. This was over a decade ago. 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 Lumbar disc disease Marijuana use Non-ST elevation (NSTEMI) myocardial infarction Nonrheumatic aortic (valve) stenosis with insufficiency Peptic ulcer disease Restless legs Right rotator cuff tear arthropathy Shortness of breath on exertion Sleep apnea Wears dentures Wears glasses Wide-complex tachycardia Home Medications benztropine 2 mg tablet 1 mg PO TID shaking 10/20/15 [History Last Taken 11/05/20 07:00] buspirone 10 mg tablet 15 mg PO TID anxiety 09/12/18 [History Last Taken 04/19/22] potassium chloride 10 mEq capsule,extended release 10 meq PO DAILY supplement 09/12/18 [History Last Taken 10/03/18 09:00 10 meq] donepezil 10 mg tablet (Aricept) 10 mg PO QHS memory 10/03/18 [History Last Taken 04/19/22] fluoxetine 40 mg capsule 20 mg PO DAILY mental health 04/19/20 [History Last Taken 04/19/22] cholecalciferol (vitamin D3) 50 mcg (2,000 unit) tablet 50 mcg PO DAILY vitamin 11/01/20 [History Last Taken Unknown] memantine 5 mg tablet (Namenda) 5 mg PO BID memory 11/01/20 [History Last Taken Unknown] pantoprazole 40 mg tablet,delayed release 40 mg PO BID reflux 11/01/20 [History Last Taken 04/19/22] trazodone 50 mg tablet 50 mg PO QHS sleep 08/15/21 [History Last Taken Unknown] aspirin 81 mg tablet 81 mg PO DAILY 09/27/21 [History Last Taken 09/27/21] albuterol sulfate 2.5 mg/3 mL (0.083 %) solution for nebulization 2.5 mg (3 mL) inhalation Q4H PRN Sob &/Or Wheezing #180 mL 02/02/22 [Rx Last Taken Unknown] risperidone 4 mg tablet 4 mg PO BID 02/02/22 [History Last Taken Unknown] furosemide 40 mg tablet (Lasix) 40 mg PO DAILY 04/07/22 [History Last Taken Unknown] montelukast 10 mg tablet (Singulair) 10 mg PO QHS allergies 04/07/22 [History Last Taken Unknown] acetaminophen 500 mg tablet 1,000 mg (2 x 500 mg) PO TID #0 tabs 04/20/22 [Rx Last Taken Unknown] oxycodone 5 mg tablet 5 - 10 mg (1 - 2 x 5 mg) PO Q4H PRN PRN As needed for pain 5 days #42 tabs 04/20/22 [Rx Last Taken Unknown] sennosides 8.6 mg-docusate sodium 50 mg tablet (Stool Softener-Stimulant Laxative) 2 tab PO BID #30 tabs 04/20/22 [Rx Last Taken Unknown] benralizumab 30 mg/mL subcutaneous syringe (Fasenra) 30 mg subcut Q8W #1 mL 09/14/22 [Rx Last Taken Unknown] metoprolol tartrate 50 mg tablet (Lopressor) 50 mg PO BID #180 tabs 12/10/22 [Rx Last Taken Unknown] warfarin 5 mg tablet 5 mg PO .COMPLEX #90 tabs 04/05/23 [Rx Last Taken Unknown] azithromycin 250 mg tablet See Rx Instructions PO .COMPLEX #6 tabs 07/17/23 [Rx Last Taken Unknown] budesonide-formoterol HFA 160 mcg-4.5 mcg/actuation aerosol inhaler (Symbicort) 1 puff inhalation BID COPD #10.2 grams 07/17/23 [Rx Last Taken Unknown] warfarin 1 mg tablet 1 mg PO .COMPLEX #45 tabs 07/30/23 [Rx Last Taken Unknown] warfarin 6 mg tablet 6 mg PO .COMPLEX #90 tabs 07/30/23 [Rx Last Taken Unknown] doxycycline monohydrate 100 mg capsule 100 mg PO BID #14 CAPSULES 09/04/23 [Rx Last Taken Unknown] prednisone 10 mg tablet 10 mg PO UD #33 tabs 09/04/23 [Rx Last Taken Unknown] atorvastatin 40 mg tablet 40 mg PO QHS #90 tabs 11/14/23 [Rx Last Taken Unknown] Allergy/AdvReac Type Severity Reaction Status Date / Time Iodinated Contrast Media Allergy Shortness Verified 11/17/23 19:42 [CONTRASTS] of breath iodine Allergy Other Verified 11/17/23 19:42 Family History Father CAD (coronary artery disease) Mother CAD (coronary artery disease) Sister CAD (coronary artery disease) CVA (cerebral vascular accident) Surgical History Abdominal Aortagram (08/18/13) H/O coronary artery bypass surgery (01/2003) History of appendectomy History of coronary artery stent placement (07/15/12) History of foreign body in respiratory tract History of left heart catheterization (09/27/21) History of lumbar spinal fusion (06/29/14) History of mechanical aortic valve replacement History of repair of right rotator cuff Status post placement of implantable loop recorder (2004) Social History Smoking Status: Former smoker quit date: 06/12/04 Tobacco: How many years used: 15 ROS ROS ED Constitutional Constitutional ED: Reports chills; Denies fever(s) or sweats Eyes Eyes: Denies blurry vision or change in vision ENT ENT ED: Denies ear pain or sore throat Cardiovascular Cardiovascular: Denies chest pain, palpitations or racing heartbeat Respiratory/Chest Respiratory/Chest: Denies cough, dyspnea or sputum Gastrointestinal Gastrointestinal: Denies abdominal pain, constipation, diarrhea, nausea or vomiting Genitourinary Genitourinary ED: Denies dysuria, hematuria or urinary frequency Musculoskeletal Musculoskeletal: Denies arthralgias, myalgias or neck pain Integumentary Denies abscess, Abrasions or rash Neurologic Neurologic: Denies headache(s), paresthesias or weakness Psychiatric Psychiatric: Denies anxiety, depression, suicidal ideation or suicidal thoughts Endocrine Endocrinology: Denies polydipsia or polyuria EXAM Physical Exam Const Vital Signs: 11/17/23 19:40 11/17/23 19:52 11/17/23 19:52 Temperature 98.2 F 98.2 F Temperature Source Oral Oral Pulse Rate 58 L 77 Respiratory Rate 18 18 Respiratory Effort Normal Non-Labored Respiratory Pattern Normal Blood Pressure 112/91 H 107/83 H Blood Pressure Mean 98 91 Pulse Ox 98 99 Oxygen Delivery Method Room Air Room Air 11/17/23 21:46 11/17/23 20:42 11/17/23 21:00 Temperature 97.8 F 98.4 F 98.6 F Temperature Source Oral Oral Pulse Rate 79 80 57 L Respiratory Rate 14 15 17 Respiratory Effort Respiratory Pattern Blood Pressure 103/85 H 112/72 147/74 H Blood Pressure Mean 91 85 98 Pulse Ox 96 97 97 Oxygen Delivery Method Room Air Room Air 11/17/23 20:41 11/17/23 20:45 11/17/23 20:50 Temperature Temperature Source Pulse Rate 80 82 Respiratory Rate 15 17 17 Respiratory Effort Respiratory Pattern Blood Pressure 127/79 H Blood Pressure Mean 95 Pulse Ox 95 95 97 Oxygen Delivery Method 11/17/23 21:00 11/17/23 21:10 11/17/23 21:15 Temperature Temperature Source Pulse Rate 72 78 Respiratory Rate 18 22 H Respiratory Effort Respiratory Pattern Blood Pressure 121/73 H 131/84 H Blood Pressure Mean 88 96 Pulse Ox 95 97 Oxygen Delivery Method Room Air 11/17/23 21:20 11/17/23 21:30 11/17/23 21:40 Temperature Temperature Source Pulse Rate 79 78 Respiratory Rate 24 H 13 Respiratory Effort Respiratory Pattern Blood Pressure 141/109 H Blood Pressure Mean 120 Pulse Ox 95 96 Oxygen Delivery Method Room Air General Appearance ED: Negative for pallor HEENT Reports normocephalic, head/scalp atraumatic and moist mucous membranes Eyes PERRL and EOMs intact bilaterally Neck no lymphadenopathy and supple Chest Wall inspection of chest normal and palpation of chest normal Resp normal respiratory effort and clear to auscultation bilaterally Auscultation: Negative for rales, rhonchi or wheezes Cardio regular rate and regular rhythm GI normal to inspection, nondistended, normoactive bowel sounds Palpation: soft Narrative: Deferred Extremity normal to inspection Neuro oriented x3 and CN's II-XII intact bilaterally Sensorium / Orientation: alert Motor Exam: strength 5/5 throughout Psych mental status grossly normal Attitude: No agitated Skin no rashes or lesions noted and no wounds General Skin Exam: Negative for jaundice or pallor MDM MDM MDM Narrative Medical decision making narrative: Patient presenting with chills. He really has no other symptoms at this point. Vital signs are stable he is afebrile. Exam is unremarkable. I did talk to the family at length as they were concerned to the last time he was very sick. We obtained a CBC to assess for blood cell count, hemoglobin, platelets. PT/INR to assess for coagulopathy as patient is not Coumadin. BMP to assess for renal function and electrolytes. Urinalysis to assess for UTI. All of these labs were unremarkable with exception of a mild leukocytosis 12.5. Urinalysis negative for infection. Chest x-ray my interpretation shows no acute process. High-sensitivity troponin is 8. EKG sinus rhythm without evidence of ischemia on my interpretation. Still awaiting a COVID, flu, RSV swab but the patient does not feel like he is ill. Apparently there was a delay in obtaining the results as there was an error code reported by the lab. They stated will take about another 35 to 40 minutes and the patient does not want to wait for this result. I will they will check with her online medical records to see if the test comes back positive and they wish to be discharged home. Impression: 1. Chills Lab Data Attestation: I reviewed the patient's lab results. Labs: Laboratory Results - last 24 hr 11/17/23 11/17/23 20:13 20:20 WBC 12.5 H RBC 4.22 L Hgb 12.9 L Hct 40.5 MCV 96.0 H MCH 30.6 MCHC 31.9 L RDW Std Deviation 48.8 H RDW Coeff of Adalberto 13.9 Plt Count 234 MPV 9.1 Immature Gran % (Auto) 0.400 Neut % (Auto) 75.5 H Lymph % (Auto) 12.7 L [place] % (Auto) 11.2 H Eos % (Auto) 0.0 Baso % (Auto) 0.2 Absolute Neuts (auto) 9.4 H Absolute Lymphs (auto) 1.58 Nucleated RBC % 0 PT 31.7 H INR 3.1 Sodium 135 L Potassium 4.6 Chloride 101 Carbon Dioxide 32.0 Anion Gap 2 L BUN 12 Creatinine 0.86 Estim Creat Clear Calc 109.14 Est GFR (MDRD) Af Amer 114 Est GFR (MDRD) Non-Af 94 BUN/Creatinine Ratio 14.0 Glucose 74 Calcium 8.6 Troponin I High Sens 8 Urine Color Yellow Urine Clarity Clear Urine pH 6.0 Ur Specific [place] 1.020 Urine Protein 15 H Urine Glucose (UA) Normal Urine Ketones 5 H Urine Occult Blood 50 H Urine Nitrite Negative Urine Bilirubin Negative Urine Urobilinogen 1 H Ur Leukocyte Esterase 25 H Urine RBC 0 SEEN Urine WBC 0-5 SEEN Ur Squamous Epith Cells 0 SEEN Urine Bacteria 0 SEEN Urine Mucus 0 SEEN Radiography Diagnostic Testing: Clinical Impression(s) from Imaging Studies Chest X-Ray 11/17/23 20:28 IMPRESSION: No radiographic evidence of acute cardiopulmonary disease. Electronically Signed: Bethel Richardson MD at 21:01 EDT , Discharge Plan Triage Chief Complaint: General Illness ED Provider: Marbin Mcmahon Dx/Rx/DC Orders Clinical Impression: Chills Prescriptions: No Action potassium chloride 10 mEq capsule, extended release 10 meq PO DAILY buspirone 10 mg tablet 15 mg PO TID fluoxetine 40 mg capsule 20 mg PO DAILY risperidone 4 mg tablet 4 mg PO BID albuterol sulfate 2.5 mg /3 mL (0.083 %) solution for nebulization 2.5 mg INHALATION Q4H PRN (Reason: Sob &/Or Wheezing) Qty: 180 3RF Fasenra 30 mg/mL syringe 30 mg SC Q8W Qty: 1 11RF azithromycin 250 mg tablet See Rx Instructions PO .COMPLEX Qty: 6 0RF Rx Instructions: For 250 mg dose pack: take 500 mg today (day 1), then 250 mg for 4 days (days 2-5) PO budesonide-formoterol [Symbicort] 160-4.5 mcg/actuation HFA aerosol inhaler 1 puff INHALATION BID Qty: 10.2 11RF Rx Instructions: administer with spacer, rinse mouth after each use benztropine 2 MG tablet 1 mg PO TID Patient Comments: prevent side effects of medications donepezil [Aricept] 10 MG tablet 10 mg PO QHS pantoprazole 40 MG tablet 40 mg PO BID memantine [Namenda] 5 MG tablet 5 mg PO BID cholecalciferol (vitamin D3) 50 MCG tablet 50 mcg PO DAILY trazodone 50 mg Tablet 50 mg PO QHS aspirin 81 mg Tablet 81 mg PO DAILY furosemide [Lasix] 40 mg Tablet 40 mg PO DAILY montelukast [Singulair] 10 mg tablet 10 mg PO QHS acetaminophen 500 mg Tablet 1,000 mg PO TID Qty: 0 0RF Rx Instructions: Do not take more than 3000 mg Tylenol in a 24-hour period. oxycodone 5 mg Tablet 5 - 10 mg PO Q4H PRN PRN (Reason: As needed for pain) 5 Days Qty: 42 0RF sennosides-docusate sodium [Stool Softener-Stimulant Laxat] 8.6-50 mg Tablet 2 tab PO BID Qty: 30 0RF Rx Instructions: Take until first bowel movement, then as needed prednisone 10 mg tablet 10 mg PO UD Qty: 33 0RF Rx Instructions: Take 4 tablets daily for 3 days, then 3 daily for 3 days, then 2 daily for 3 days, then 1 a day for 3 days then 1 QOD for 3 doses. doxycycline monohydrate 100 mg capsule 100 mg PO BID Qty: 14 0RF metoprolol tartrate [Lopressor] 50 mg tablet 50 mg PO BID Qty: 180 3RF warfarin 5 mg tablet 5 mg PO .COMPLEX Qty: 90 3RF Protocol: Dose Management Condition: Sunday Dose/Route: 6 mg Instruction: 1 x 6 mg tablet Condition: Sunday Dose/Route: 6 mg Instruction: 1 x 6 mg tablet Condition: Sunday Dose/Route: 7.5 mg Instruction: 1.5 x 5 mg tablets Condition: Sunday Dose/Route: 6 mg Instruction: 1 x 6 mg tablet Condition: Dose/Route: 6 mg Instruction: 1 x 6 mg tablet Condition: Sunday Dose/Route: 6 mg Instruction: 1 x 6 mg tablet Condition: Sunday Dose/Route: 6 mg Instruction: 1 x 6 mg tablet Protocol Text: Adjustment Start Date: Sunday08/17/23 INR Value: 2.7 INR Date: 08/17/23 Recheck Date: 09/16/23 Rx Instructions: 5 mg PO Take 5 mg daily or as directed for dose changes. warfarin 1 mg tablet 1 mg PO .COMPLEX Qty: 45 3RF Protocol: Dose Management Condition: Sunday Dose/Route: 6 mg Instruction: 1 x 6 mg tablet Condition: Sunday Dose/Route: 6 mg Instruction: 1 x 6 mg tablet Condition: Sunday Dose/Route: 7.5 mg Instruction: 1.5 x 5 mg tablets Condition: Sunday Dose/Route: 6 mg Instruction: 1 x 6 mg tablet Condition: Dose/Route: 6 mg Instruction: 1 x 6 mg tablet Condition: Sunday Dose/Route: 6 mg Instruction: 1 x 6 mg tablet Condition: Sunday Dose/Route: 6 mg Instruction: 1 x 6 mg tablet Protocol Text: Adjustment Start Date: Sunday08/17/23 INR Value: 2.7 INR Date: 08/17/23 Recheck Date: 09/16/23 Rx Instructions: 1 mg PO take 1.5 tablets with a 6 mg tablet on Tuesdays, or as directed; warfarin 6 mg tablet 6 mg PO .COMPLEX Qty: 90 3RF Protocol: Dose Management Condition: Sunday Dose/Route: 6 mg Instruction: 1 x 6 mg tablet Condition: Sunday Dose/Route: 6 mg Instruction: 1 x 6 mg tablet Condition: Sunday Dose/Route: 7.5 mg Instruction: 1.5 x 5 mg tablets Condition: Sunday Dose/Route: 6 mg Instruction: 1 x 6 mg tablet Condition: Dose/Route: 6 mg Instruction: 1 x 6 mg tablet Condition: Sunday Dose/Route: 6 mg Instruction: 1 x 6 mg tablet Condition: Sunday Dose/Route: 6 mg Instruction: 1 x 6 mg tablet Protocol Text: Adjustment Start Date: Sunday08/17/23 INR Value: 2.7 INR Date: 08/17/23 Recheck Date: 09/16/23 Rx Instructions: 6 mg PO daily daily: take with 1.5 of 1 mg tablet to = 7.5 mg on Tuesdays, or as directed.; atorvastatin 40 mg tablet 40 mg PO QHS Qty: 90 3RF Primary Care Provider: Bartolo Mitchell Referrals: Bartolo Mitchell DO [Primary Care Provider] - Disposition Disposition: Home, Self Care Discharge Date/Time: 11/17/23 21:52
[2023-11-17 20:26] LABS: Bacteria 0 SEEN /hpf (None Seen); Mucous, Urine 0 SEEN /hpf (<or=2+); Red Blood Cells-Urine 0 SEEN /hpf (0-5); Squamous Epithelial Cells - UA 0 SEEN /hpf (0-5)
--- NOTE | 2023-11-17 20:28 | RAD_ITS ---
EXAM: XR CHEST, 1 VIEW CLINICAL INDICATION: chills TECHNIQUE: Frontal view of the chest. COMPARISON: 09/04/2023 FINDINGS: LUNGS AND PLEURAL SPACES: Unremarkable. No consolidation or edema. No pneumothorax. No effusion. HEART: Unremarkable. Cardiac silhouette not enlarged. MEDIASTINUM: Central airways and mediastinal contour are unremarkable. BONES/JOINTS: Unremarkable. No acute fracture. SOFT TISSUES: Unremarkable. RAD/Chest 1 View (Portable) IMPRESSION: No radiographic evidence of acute cardiopulmonary disease. Electronically Signed: Bethel Richardson MD at 21:01 EDT ,
[2023-11-17 20:32] LABS: Absolute Lymphocyte Count 1.58 X10^3/uL (0.83-4.51); Absolute Neutrophil Count 9.4 X10^3/uL (2.0-7.7); Basophil# 0.03 X10^3/uL; Basophil% 0.2 % (0-1); Hematocrit 40.5 % (40-54); Hemoglobin 12.9 g/dL (13.0-16.5); Lymphocyte # 1.58 X10^3/ul (0.83-4.51); Lymphocyte % 12.7 % (19-41); Mean Corp Hgb Conc 31.9 g/dL (32-36); Mean Corpuscular Hgb 30.6 pg (27.0-32.0); Mean Platelet Vol. 9.1 fl (6.2-12.0); Monocyte% 11.2 % (0-10); NRBC Flagged by Analyzer 0 % (0-5); Neutrophil # 9.43 X10^3/uL (2.7-7.7); Neutrophil % 75.5 % (47-70); Platelet Count 234 K/mm3 (150-450); RBC Distribution Width CV 13.9 % (11.6-14.6); RBC Distribution Width SD 48.8 fl (35.1-43.9); Red Blood Count 4.22 M/mm3 (4.6-6.2); White Blood Count 12.5 K/mm3 (4.4-11.0)
[2023-11-17 20:37] LABS: Color, Urine Yellow (Yellow); Glucose, Dipstick Normal (Normal); Ketone-Dipstick 5 mg/dl (Negative); Leukocyte Esterase-Dipstick 25 /ul (Negative); Nitrite-Dipstick Negative (Negative); Occult Blood-Urine 50 /ul (Negative); Protein-Dipstick 15 mg/dl (Negative); Urine Bilirubin Dipstick Negative (Negative); Urine Clarity Clear (Clear); Urine Urobilinogen 1 mg/dl (Normal)
[2023-11-17 20:40] LABS: International Normalized Ratio 3.1; Prothrombin Time (Protime)PT. 31.7 SECONDS (11.7-14.9)
[2023-11-17 20:46] LABS: White Blood Cells 0-5 SEEN /hpf (0-5)
[2023-11-17 21:04] LABS: Anion Gap 2 (5-15); BUN 12 mg/dL (7-18); Calcium,Total 8.6 mg/dL (8.5-10.1); Chloride 101 mmol/L (98-107); Creatinine, Serum 0.86 mg/dL (0.70-1.30); EST Glomerular Filtration Rate 94 mL/min (>60); Est Glom Filt Rate - Afr Amer 114 mL/min (>60); Estimated Creatinine Clearance 109.14 ml/min; Glucose 74 mg/dL (74-106); Potassium 4.6 mmol/L (3.5-5.1); Sodium Level 135 mmol/L (136-145); Troponin-I HS 8 pg/mL (3.0-78.0)
== END 2023-11-17 21:52 | disposition home or self-care (01) ==
PROVIDERS: Emergency Provider Student in an Organized Health Care Education/Training Program; PCP Preventive Medicine Occupational Medicine; Visit Provider Student in an Organized Health Care Education/Training Program
DX: R68.83 Chills (without fever) (principal); F31.9 Bipolar disorder, unspecified; Z87.891 Personal history of nicotine dependence; Z95.1 Presence of aortocoronary bypass graft; Z95.2 Presence of prosthetic heart valve; Z95.5 Presence of coronary angioplasty implant and graft; I25.10 Atherosclerotic heart disease of native coronary artery without angina pectoris; Z86.73 Personal history of transient ischemic attack (TIA), and cerebral infarction without residual deficits; I10 Essential (primary) hypertension; K21.9 Gastro-esophageal reflux disease without esophagitis; E78.5 Hyperlipidemia, unspecified; I25.2 Old myocardial infarction; Z79.01 Long term (current) use of anticoagulants
CPT/HCPCS: 71045; 80048; 81001; 84484; 85025; 85610; 87631; 93005; 99284; A4216

== ENCOUNTER → 2023-11-26 | Outpatient (CLI) | payer MEDICARE, SELFPAY | END | disposition home or self-care (01) | LOC: LABSPEC 08:51 | PROVIDERS: PCP Preventive Medicine Occupational Medicine; Referring Provider Nurse Practitioner Acute Care; Visit Provider Nurse Practitioner Acute Care | DX: J45.50 Severe persistent asthma, uncomplicated (principal) | CPT/HCPCS: 87070; 87077; 87186; 87205 ==

== ENCOUNTER 2023-11-30 22:25 | Inpatient (IN) | payer MEDICARE, SELFPAY ==
[2023-11-30 22:26] VITALS: BP 161/65; PULSE 82; RESP 16; TEMP 36.6; O2SAT 95; BMI 33.0
--- NOTE | 2023-11-30 22:26 | EKG12_ITS ---
Test Reason : DYSRHYTHMIA Blood Pressure : / mmHG Vent. Rate : 074 BPM Atrial Rate : 080 BPM P-R Int : 000 ms QRS Dur : 172 ms QT Int : 464 ms P-R-T Axes : 070 030 113 degrees QTc Int : 515 ms Critical Test Result: AV Block Sinus rhythm with 2nd degree A-V block (Mobitz I) with Premature supraventricular complexes with vent ricular escape complexes Left bundle branch block Abnormal ECG Confirmed by Lucius Briceño ([id number]), desk editor LLOYD BATISTA ([id number]) on 12/03/2023 11:10:04 AM Referred By: Confirmed By:Lucius Briceño
--- NOTE | 2023-11-30 22:52 | CT_ITS ---
STUDY: CT CERVICAL SPINE WITHOUT CONTRAST REASON FOR EXAM: Male, 67 years old. Injury RADIATION DOSAGE (If Supplied By Facility): CTDIvol = ( 27.68 ) mGy, DLP = ( 655.08 ) mGycm TECHNIQUE: High resolution transaxial imaging was performed without contrast material. Sagittal and coronal images were reconstructed. Individualized dose optimization techniques were used for this CT. COMPARISON: None FINDINGS: Normal craniovertebral junction. Normal anterior atlantoaxial articulation. Normal odontoid process. Straightening of the cervical lordosis. Normal vertebral bodies and posterior osseous elements. C2-3: Normal endplates. Normal disc height and morphology. Normal central canal. Facet hypertrophy slightly narrowing the left intervertebral neural foramen. C3-4: Spurring at the endplates. Narrowed disc height. Mild spurring slightly protruding into the central canal. Uncovertebral spurring narrowing the intervertebral neuroforamina. C4-5: Mild spurring at the endplates. Narrowed disc height. Normal central canal. Uncovertebral spurring slightly narrowing the intervertebral neuroforamina. C5-6: Mild spurring at the endplates. Narrowed disc height. Normal central canal and intervertebral neuroforamina. C6-7: Spurring at the endplates. Narrowed disc height. Posterior spurring protruding through the central canal. Uncovertebral spurring narrowing the intervertebral neuroforamina. C7-T1: Normal endplates. Normal disc height and morphology. Normal central canal and intervertebral neuroforamina. Normal visualized soft tissue structures. Bilateral mastoiditis. Motion artifact limiting the lower cervical images. CT/Spine Cervical without Contras IMPRESSION: Degenerative changes of the cervical spine. Bilateral mastoiditis. Electronically Signed: Rolando Lou DO at 23:47 EDT Reading Location ID and State: [facility] / [place] Tel [phone], Service support ,
--- NOTE | 2023-11-30 22:52 | CT_ITS ---
STUDY: CT BRAIN WITHOUT CONTRAST REASON FOR EXAM: Male, 67 years old. Syncope RADIATION DOSAGE (If Supplied By Facility): CTDIvol = ( 44.99 ) mGy, DLP = ( 846.73 ) mGycm TECHNIQUE: Transaxial CT imaging of the brain was performed without administration of intravenous contrast material. Individualized dose optimization techniques were used for this CT. COMPARISON: No relevant priors. FINDINGS: Normal soft tissue structures. Normal calvarium. Prominent ventricles and extra-axial spaces with atrophy. Mild white matter microangiopathic ischemic changes of the cerebral hemispheres. Normal basal ganglia and thalami. Normal brainstem. Normal cerebellum. There is no intracranial hemorrhage. There are no findings of an acute ischemic infarction. Near complete opacification of the left maxillary sinus. Bilateral mastoiditis. CT/Brain/Head without Contrast IMPRESSION: No acute intracranial pathology of the brain. Electronically Signed: Rolando Lou DO at 23:51 EDT ,
[2023-11-30 23:00] LABS: Absolute Lymphocyte Count 1.09 X10^3/uL (0.83-4.51); Absolute Neutrophil Count 4.8 X10^3/uL (2.0-7.7); Basophil# 0.01 X10^3/uL; Basophil% 0.1 % (0-1); Hematocrit 36.6 % (40-54); Hemoglobin 11.9 g/dL (13.0-16.5); Lymphocyte # 1.09 X10^3/ul (0.83-4.51); Mean Corp Hgb Conc 32.5 g/dL (32-36); Mean Corpuscular Hgb 30.9 pg (27.0-32.0); Mean Corpuscular Volume 95.1 fL (80-94); Mean Platelet Vol. 9.1 fl (6.2-12.0); Monocyte# 0.91 X10^3/uL; Monocyte% 13.3 % (0-10); NRBC Flagged by Analyzer 0 % (0-5); Neutrophil # 4.77 X10^3/uL (2.7-7.7); Platelet Count 221 K/mm3 (150-450); RBC Distribution Width SD 48.8 fl (35.1-43.9); Red Blood Count 3.85 M/mm3 (4.6-6.2); White Blood Count 6.8 K/mm3 (4.4-11.0)
[2023-11-30] MEDS: Ondansetron 4 MG/2 ML Vial IV (23:01)
[2023-11-30] MEDS: Morphine 4 MG/ML Syringe IV (23:03)
[2023-11-30] MEDS: 0.9% Normal Saline (500mL Bag) 500 ML 999 ML IV (23:04)
[2023-11-30 23:11] LABS: International Normalized Ratio 3.5; Prothrombin Time (Protime)PT. 34.9 SECONDS (11.7-14.9)
--- NOTE | 2023-11-30 23:13 | EX.ED.DYSGE1 ---
HPI History of Present Illness Chief Complaint: Syncope Informant: patient and family Narrative Narrative: Patient is a 67-year-old male with past medical history of hypertension hyperlipidemia COPD and mechanical aortic valve currently on Coumadin. Patient states that he walked down the stairs roughly half hour prior to arrival then felt dizzy and then had a brief bout of syncope where he fell and struck the wall with his head. Patient states he does not remember falling but son/family did see the event. 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 Lumbar disc disease Marijuana use Non-ST elevation (NSTEMI) myocardial infarction Nonrheumatic aortic (valve) stenosis with insufficiency Peptic ulcer disease Restless legs Right rotator cuff tear arthropathy Shortness of breath on exertion Sleep apnea Wears dentures Wears glasses Wide-complex tachycardia Home Medications benztropine 2 mg tablet 1 mg PO TID shaking 10/20/15 [History Last Taken 12/01/23] buspirone 10 mg tablet 15 mg PO TID anxiety 09/12/18 [History Last Taken 12/01/23] donepezil 10 mg tablet (Aricept) 10 mg PO QHS memory 10/03/18 [History Last Taken 12/01/23] fluoxetine 40 mg capsule 20 mg PO DAILY mental health 04/19/20 [History Last Taken 12/01/23] cholecalciferol (vitamin D3) 50 mcg (2,000 unit) tablet 50 mcg PO DAILY vitamin 11/01/20 [History Last Taken 12/01/23] pantoprazole 40 mg tablet,delayed release 40 mg PO BID reflux 11/01/20 [History Last Taken 12/01/23] trazodone 50 mg tablet 50 mg PO QHS sleep 08/15/21 [History Last Taken 12/01/23] aspirin 81 mg tablet 81 mg PO DAILY BLOOD THINNER 09/27/21 [History Last Taken 12/01/23] albuterol sulfate 2.5 mg/3 mL (0.083 %) solution for nebulization 2.5 mg (3 mL) inhalation Q4H PRN Sob &/Or Wheezing #180 mL 02/02/22 [Rx Last Taken Unknown] risperidone 4 mg tablet 4 mg PO BID FOR BRAIN 02/02/22 [History Last Taken 12/01/23] furosemide 40 mg tablet (Lasix) 40 mg PO DAILY HEART 04/07/22 [History Last Taken Unknown] montelukast 10 mg tablet (Singulair) 10 mg PO QHS allergies 04/07/22 [History Last Taken 12/01/23] sennosides 8.6 mg-docusate sodium 50 mg tablet (Stool Softener-Stimulant Laxative) 2 tab PO BID BM #30 tabs 04/20/22 [Rx Last Taken Unknown] benralizumab 30 mg/mL subcutaneous syringe (Fasenra) 30 mg subcut Q8W #1 mL 09/14/22 [Rx Last Taken Unknown] metoprolol tartrate 50 mg tablet (Lopressor) 50 mg PO BID BP #180 tabs 12/10/22 [Rx Last Taken 12/01/23] warfarin 5 mg tablet 5 mg PO .COMPLEX BLOOD #90 tabs 04/05/23 [Rx Last Taken Unknown] warfarin 1 mg tablet 1 mg PO .COMPLEX BLOOD THINNER #45 tabs 07/30/23 [Rx Last Taken 12/01/23] warfarin 6 mg tablet 6 mg PO .COMPLEX BLOOD THINNER #90 tabs 07/30/23 [Rx Last Taken Unknown] atorvastatin 40 mg tablet 40 mg PO QHS #90 tabs 11/14/23 [Rx Last Taken Unknown] doxycycline monohydrate 100 mg capsule 100 mg PO BID ABX #14 CAPSULES 11/26/23 [Rx Last Taken 12/01/23] memantine 5 mg tablet (Namenda) 10 mg PO BID memory 11/26/23 [History Last Taken 12/01/23] Allergy/AdvReac Type Severity Reaction Status Date / Time Iodinated Contrast Media Allergy Shortness Verified 11/30/23 22:29 [CONTRASTS] of breath iodine Allergy Other Verified 11/30/23 22:29 Family History Father CAD (coronary artery disease) Mother CAD (coronary artery disease) Sister CAD (coronary artery disease) CVA (cerebral vascular accident) Surgical History Abdominal Aortagram (08/18/13) H/O coronary artery bypass surgery (01/2003) History of appendectomy History of coronary artery stent placement (07/15/12) History of foreign body in respiratory tract History of left heart catheterization (09/27/21) History of lumbar spinal fusion (06/29/14) History of mechanical aortic valve replacement History of repair of right rotator cuff Status post placement of implantable loop recorder (2004) Social History (Reviewed 11/26/23 @ 08:32 by Lilliam Denney SLEEVE MACHINE TENDER, SLEEVE MACHINE TENDER-C) Smoking Status: Former smoker quit date: 06/12/04 Tobacco: How many years used: 15 ROS ROS ED Constitutional Constitutional ED: Denies chills or fever(s) Eyes Eyes: Denies change in vision ENT ENT ED: Denies sore throat Cardiovascular Cardiovascular: Denies chest pain, palpitations or racing heartbeat Respiratory/Chest Respiratory/Chest: Denies cough or dyspnea Gastrointestinal Gastrointestinal: Denies abdominal pain, diarrhea, nausea or vomiting Genitourinary Genitourinary ED: Denies dysuria Musculoskeletal Musculoskeletal: Reports back pain and neck pain Integumentary Denies rash Neurologic Neurologic: Reports other Details: Positive syncope and dizziness ; Denies headache(s) Hematologic/Lymphatic Hematologic/Lymphatic: Reports easy bleeding and easy bruising EXAM Physical Exam Const Vital Signs: 11/30/23 22:26 11/30/23 22:30 11/30/23 22:31 Temperature 97.8 F Temperature Source Temporal Pulse Rate 82 Respiratory Rate 16 Respiratory Effort Normal Non-Labored Normal Non-Labored Respiratory Depth Normal Respiratory Pattern Normal Normal Blood Pressure 161/65 H Blood Pressure Mean 97 Pulse Ox 95 Oxygen Delivery Method Room Air Room Air 11/30/23 23:26 12/01/23 00:00 12/01/23 00:31 Temperature 98 F 98.8 F Temperature Source Temporal Pulse Rate 75 72 69 Respiratory Rate 15 23 H 20 H Respiratory Effort Respiratory Depth Respiratory Pattern Blood Pressure 136/75 H 136/75 H 130/72 H Blood Pressure Mean 95 95 91 Pulse Ox 95 95 94 Oxygen Delivery Method Room Air Room Air Positive well nourished and well developed General Appearance ED: well developed HEENT HEENT Narrative: No signs of depressed or basilar skull fracture Mucous membranes are dry and tacky Eyes PERRL and EOMs intact bilaterally General Eye ED: Negative for scleral icterus Neck Neck Narrative: C-collar in place No obvious bony deformity or step-off of the cervical spine but there is midline pain on palpation Chest Wall palpation of chest normal Chest Narrative: No bony deformity or crepitus noted Resp normal respiratory effort Resp Narrative: Breath sounds are diminished throughout with diffuse rhonchi consistent with history of COPD but no signs of respiratory distress Cardio regular rate and regular rhythm GI normal to inspection, nondistended, normoactive bowel sounds, non-tender, non-distended and no masses GI Narrative: No voluntary guarding or rigidity or pulsatile mass Auscultation: normoactive bowel sounds Palpation: soft Back/Spine Back/Spine Narrative: No bony deformity or step-off of the thoracic or lumbar spine but there is midline pain on palpation of the mid thoracic and lower lumbar region. Extremity Extremity Narrative: Pelvis is stable there is no shortening or external rotation of either lower extremity. Patient does have pain on palpation in the left inguinal region however Patient can still lift both legs and arms without difficulty. There is no obvious bony deformity or joint effusion Neuro oriented x3, CN's II-XII intact bilaterally and no sensory deficits noted Neuro Narrative: Cranial nerves II through XII are grossly intact there are no focal neurologic deficits No pronator drift no dysmetria no truncal ataxia NIH stroke scale score 0 No nystagmus noted Sensorium / Orientation: alert Motor Exam: strength 5/5 throughout Psych mental status grossly normal Skin no rashes or lesions noted MDM MDM MDM Narrative Medical decision making narrative: Patient presented to the ER awake and alert with stable vital. He reported a syncopal event and therefore differential diagnosis is for orthostasis versus cardiac dysrhythmia versus acute blood loss anemia versus electrolyte derangement. There is also concern for underlying skull fracture/brain bleed or cervical spine injury based on the trauma. Secondary to this an EKG was obtained as well as basic laboratory values. Labs showed a therapeutic INR 3.5 and otherwise no clinically significant findings. Imaging studies revealed no signs of trauma. However his EKG appeared to show a heart block and therefore he was sent to the bottling supervisor on-call. Dr. Ko/cardiology feels this is a second-degree Mobitz type II and as the patient was symptomatic sustaining a bout of syncope with it believes he will need evaluated for a pacemaker and recommends admission. Secondary to this the case was discussed with the hospitalist who agrees to accept the patient. At this time as he does not have any severe electrolyte abnormality needed and corrected no signs of internal bleeding or underlying trauma he is safe to keep at this facility for further workup History & Record Review Discussion w/independent historian: Patient and Family Lab Data Attestation: I reviewed the patient's lab results. Labs: Laboratory Results - last 24 hr 11/30/23 22:17 WBC 6.8 RBC 3.85 L Hgb 11.9 L Hct 36.6 L MCV 95.1 H MCH 30.9 MCHC 32.5 RDW Std Deviation 48.8 H RDW Coeff of Adalberto 14.0 Plt Count 221 MPV 9.1 Immature Gran % (Auto) 0.600 Neut % (Auto) 70.0 Lymph % (Auto) 16.0 L [place] % (Auto) 13.3 H Eos % (Auto) 0.0 Baso % (Auto) 0.1 Absolute Neuts (auto) 4.8 Absolute Lymphs (auto) 1.09 Nucleated RBC % 0 PT 34.9 H INR 3.5 Sodium 136 Potassium 3.5 Chloride 104 Carbon Dioxide 26.0 Anion Gap 6 BUN 7 Creatinine 0.98 Estim Creat Clear Calc 97.89 Est GFR (MDRD) Af Amer 99 Est GFR (MDRD) Non-Af 82 BUN/Creatinine Ratio 7.2 L Glucose 119 H Calcium 8.5 Magnesium 1.6 Radiography Diagnostic Testing: Clinical Impression(s) from Imaging Studies Brain CT 11/30/23 22:52 IMPRESSION: No acute intracranial pathology of the brain. Electronically Signed: Rolando Lou DO at 23:51 EDT , Cervical Spine CT 11/30/23 22:52 IMPRESSION: Degenerative changes of the cervical spine. Bilateral mastoiditis. Electronically Signed: Rolando Lou DO at 23:47 EDT , Chest X-Ray 11/30/23 23:15 IMPRESSION: No acute cardiopulmonary disease. Electronically Signed: Constantino Melendez MD at 0:54 EDT , Pelvis X-Ray 11/30/23 23:23 IMPRESSION: Mild degenerative changes of the hip joints bilaterally. No acute osseous abnormalities or malalignment. No other findings to explain pain. Electronically Signed: Constantino Melendez MD at 0:37 EDT , Thoracic Spine X-Ray 11/30/23 23:28 IMPRESSION: Mild degenerative changes. No acute or healing fracture or malalignment. Electronically Signed: Constantino Melendez MD at 0:33 EDT , 1 view pelvis x-ray as interpreted by the emergency medicine physician reveals degenerative changes without acute fracture or dislocation Thoracic spine x-ray as interpreted by the emergency medicine physician reveals no compression fracture or spondylolisthesis X-ray of the lumbar spine as interpreted by the emergency medicine physician reveals hardware to be intact and in place with degenerative changes without acute compression fracture or spinal thesis Chest x-ray as interpreted by the emergency medicine physician reveals no acute infiltrate or pneumothorax Management Discussion w/another healthcare provider: Hospitalist and Property Portfolio Officer Discharge Plan Triage Chief Complaint: Syncope Other Complaint: Head Injury ED Provider: Constantino Alexis Dx/Rx/DC Orders Clinical Impression: Mobitz type 2 second degree atrioventricular block, Current use of supervisor intermediates anticoagulation, Essential hypertension, Syncope, COPD (chronic obstructive pulmonary disease) Primary Care Provider: Bartolo Mitchell Disposition Disposition: [facility]
--- NOTE | 2023-11-30 23:15 | RAD_ITS ---
EXAM: XR CHEST, 1 VIEW CLINICAL INDICATION: syncope TECHNIQUE: Frontal view of the chest. COMPARISON: No relevant prior studies available. FINDINGS: LUNGS AND PLEURAL SPACES: Mild subsegmental atelectasis and/or scarring at the left base. No pneumothorax. No effusion. HEART: Unremarkable. Cardiac silhouette not enlarged. MEDIASTINUM: Central airways and mediastinal contour are unremarkable. BONES/JOINTS: Disrupted most cranial sternotomy wire. Degenerative changes of the spine. No acute fracture. SOFT TISSUES: Unremarkable. VASCULATURE: Atherosclerotic calcifications of the ectatic thoracic aortic arch. RAD/Chest 1 View (Portable) IMPRESSION: No acute cardiopulmonary disease. Electronically Signed: Constantino Melendez MD at 0:54 EDT ,
--- NOTE | 2023-11-30 23:20 | RAD_ITS ---
EXAM: XR LUMBOSACRAL SPINE, 2 OR 3 VIEWS CLINICAL INDICATION: pain TECHNIQUE: Frontal and lateral views of the lumbar spine and sacrum. COMPARISON: No relevant prior studies available. FINDINGS: VERTEBRAE: Moderate vertebral body height loss involving the L1 vertebral body. Mild height loss involving the L2 vertebral body. L4-5 posterior metallic with interbody spacer. No hardware complications. Rightward curvature of the lumbar spine centered at L3. No significant facet arthropathy. No acute or healing fracture. No obvious spondylolisthesis. DISC SPACES: Multilevel spine degenerative changes. VASCULATURE: Infrarenal abdominal aortic aneurysm measuring up to 4.2 cm in anterior to posterior dimension. GASTROINTESTINAL TRACT: Unremarkable as visualized. Included bowel gas pattern is non-obstructive. RAD/Lumbar Spine 2 or 3 Views IMPRESSION: 1. Multilevel spine degenerative changes. 2. Chronic vertebral body height loss involving the L1 and L2 levels. 3. No acute osseous abnormalities. 4. No hardware complications associated with L4-5 posterior osteometallic fusion. 5. 4.3 cm infrarenal abdominal aortic aneurysm. Electronically Signed: Constantino Melendez MD at 1:01 EDT ,
--- NOTE | 2023-11-30 23:23 | RAD_ITS ---
EXAM: XR PELVIS, 1 OR 2 VIEWS CLINICAL INDICATION: pain TECHNIQUE: Frontal view of the pelvis. COMPARISON: No relevant prior studies available. FINDINGS: BONES/JOINTS: Degenerative changes of the visualized lumbar spine at multiple levels. L4-5 posterior osseous metallic fusion without any hardware complications. Mild degenerative changes of the hip joints bilaterally with no evidence for osteonecrosis. No displaced fracture. Sacroiliac joints are unremarkable. No widening of the pubic symphysis. No unusual lytic or sclerotic lesions of bone. SOFT TISSUES: Unremarkable. No soft tissue swelling or gas. VASCULATURE: Phleboliths in the pelvis. RAD/Pelvis 1 or 2 Views IMPRESSION: Mild degenerative changes of the hip joints bilaterally. No acute osseous abnormalities or malalignment. No other findings to explain pain. Electronically Signed: Constantino Melendez MD at 0:37 EDT ,
[2023-11-30 23:26] VITALS: BP 136/75; PULSE 75; RESP 15; TEMP 36.6; O2SAT 95
--- NOTE | 2023-11-30 23:28 | RAD_ITS ---
EXAM: XR THORACIC SPINE, 3 VIEWS CLINICAL INDICATION: pain TECHNIQUE: Frontal, lateral and swimmer''s views of the thoracic spine. COMPARISON: No relevant prior studies available. FINDINGS: VERTEBRAE: Unremarkable. Preservation of the normal thoracic kyphosis. No significant facet arthropathy. No unusual lytic or sclerotic lesions of bone. No acute or healing fracture or spondylolisthesis. OTHER BONES/JOINTS: Disruption of the most cranial sternotomy wires. DISC SPACES: Mild multilevel spine degenerative changes. SOFT TISSUES: Soft tissues are unremarkable. RAD/Thoracic Spine 3 Views IMPRESSION: Mild degenerative changes. No acute or healing fracture or malalignment. Electronically Signed: Constantino Melendez MD at 0:33 EDT ,
[2023-11-30 23:30] LABS: Anion Gap 6 (5-15); BUN 7 mg/dL (7-18); BUN/Creat Ratio 7.2 RATIO (10-20); Calcium,Total 8.5 mg/dL (8.5-10.1); Chloride 104 mmol/L (98-107); Creatinine, Serum 0.98 mg/dL (0.70-1.30); EST Glomerular Filtration Rate 82 mL/min (>60); Est Glom Filt Rate - Afr Amer 99 mL/min (>60); Estimated Creatinine Clearance 97.89 ml/min; Glucose 119 mg/dL (74-106); Magnesium 1.6 mg/dL (1.6-2.6); Potassium 3.5 mmol/L (3.5-5.1); Sodium Level 136 mmol/L (136-145)
[2023-12-01] VITALS (10 sets, daily range): BP systolic 125–143; BP diastolic 56–76; PULSE 56–80; RESP 16–23; TEMP 36.5–37.1; O2SAT 91–98; BMI 31.7
--- NOTE | 2023-12-01 00:17 | HP.PCM.HOS_ITS ---
[facility] - General General Date of Admission: 12/01/23 Date of Service: 12/01/23 Chief Complaint: Syncope. [facility] Narrative PASHA MATOS, is a 67 M with a past medical history of essential hypertension; on metoprolol, hyperlipidemia, obesity; with BMI of 33 this admission, remote history of tobacco abuse (quit 2003), history of CVA (2009), history of CAD; status post non-STEMI with stent placement (2011) after a CABG x 4 (2002), history of aortic stenosis with aortic root dilatation; status post mechanical aortic valve replacement on chronic Coumadin, bipolar disorder, RLS, chronic dementia; on Namenda and donepezil, history of cannabis abuse, history of esophageal obstruction due to food impaction; presumably due to esophageal stenosis, GERD; with history of peptic ulcer disease, DDD of the lumbar spine; status post lumbar spine fusion (2013) and osteoarthritis who presents to [facility] ER complaining of a syncopal event. Mr. Matos is not a fully reliable historian at this time given his history of dementia and recent injury so information was gathered from chart, medical staff and computer. According to the records his family reported that he was walking down a flight of stairs about 30 minutes prior to arrival when he complained of feeling dizzy and then briefly passed out resulting in him falling and then striking the wall with his head with no attempt to protect his head by placing his arms outward. The patient states he has no memory of the fall or the syncopal event but thankfully, the event was witnessed by the family. He woke up shortly after the episode and had no signs of seizure activity, bowel or bladder incontinence, postictal changes, signs of severe bleeding or other serious injury. There was also no report of fever, chills, nausea, vomiting or other focal neurologic deficits. In the ER the patient's EKG was remarkable for a Mobitz type II second-degree heart block with patient care assistant on-call recommending pacemaker placement after recent syncopal event in a patient with extensive history of coronary artery disease and mechanical heart valve; on chronic Coumadin with recommendation to allow INR to slowly drift downward to allow for pacemaker implantation in the near future complicated by urine drug screen positive for opiates and THC. He was then admitted to the PCU for ongoing care for stay that is expected to be greater than 48 hours. [facility] Medical History Aortic root dilatation Arthritis Atherosclerosis of coronary artery of [place] heart without angina pectoris Bicuspid aortic valve Bipolar 1 disorder Cancer CVA (cerebral vascular accident) (2009) Dementia Depression Esophageal obstruction due to food impaction Essential hypertension GERD (gastroesophageal reflux disease) Hyperlipidemia custodial current use of anticoagulant Lumbar disc disease Marijuana use Non-ST elevation (NSTEMI) myocardial infarction Nonrheumatic aortic (valve) stenosis with insufficiency Peptic ulcer disease Restless legs Right rotator cuff tear arthropathy Shortness of breath on exertion Sleep apnea Wears dentures Wears glasses Wide-complex tachycardia Home Medications benztropine 2 mg tablet 1 mg PO TID shaking 10/20/15 [History Last Taken 12/01/23] buspirone 10 mg tablet 15 mg PO TID anxiety 09/12/18 [History Last Taken 12/01/23] donepezil 10 mg tablet (Aricept) 10 mg PO QHS memory 10/03/18 [History Last Taken 12/01/23] fluoxetine 40 mg capsule 20 mg PO DAILY mental health 04/19/20 [History Last Taken 12/01/23] cholecalciferol (vitamin D3) 50 mcg (2,000 unit) tablet 50 mcg PO DAILY vitamin 11/01/20 [History Last Taken 12/01/23] pantoprazole 40 mg tablet,delayed release 40 mg PO BID reflux 11/01/20 [History Last Taken 12/01/23] trazodone 50 mg tablet 50 mg PO QHS sleep 08/15/21 [History Last Taken 12/01/23] aspirin 81 mg tablet 81 mg PO DAILY BLOOD THINNER 09/27/21 [History Last Taken 12/01/23] albuterol sulfate 2.5 mg/3 mL (0.083 %) solution for nebulization 2.5 mg (3 mL) inhalation Q4H PRN Sob &/Or Wheezing #180 mL 02/02/22 [Rx Last Taken Unknown] risperidone 4 mg tablet 4 mg PO BID FOR BRAIN 02/02/22 [History Last Taken 12/01/23] furosemide 40 mg tablet (Lasix) 40 mg PO DAILY HEART 04/07/22 [History Last Taken Unknown] montelukast 10 mg tablet (Singulair) 10 mg PO QHS allergies 04/07/22 [History Last Taken 12/01/23] sennosides 8.6 mg-docusate sodium 50 mg tablet (Stool Softener-Stimulant La xative) 2 tab PO BID BM #30 tabs 04/20/22 [Rx Last Taken Unknown] benralizumab 30 mg/mL subcutaneous syringe (Fasenra) 30 mg subcut Q8W #1 mL 09/14/22 [Rx Last Taken Unknown] metoprolol tartrate 50 mg tablet (Lopressor) 50 mg PO BID BP #180 tabs 12/10/22 [Rx Last Taken 12/01/23] warfarin 5 mg tablet 5 mg PO .COMPLEX BLOOD #90 tabs 04/05/23 [Rx Last Taken Unknown] warfarin 1 mg tablet 1 mg PO .COMPLEX BLOOD THINNER #45 tabs 07/30/23 [Rx Last Taken 12/01/23] warfarin 6 mg tablet 6 mg PO .COMPLEX BLOOD THINNER #90 tabs 07/30/23 [Rx Last Taken Unknown] atorvastatin 40 mg tablet 40 mg PO QHS #90 tabs 11/14/23 [Rx Last Taken Unknown] doxycycline monohydrate 100 mg capsule 100 mg PO BID ABX #14 CAPSULES 11/26/23 [Rx Last Taken 12/01/23] memantine 5 mg tablet (Namenda) 10 mg PO BID memory 11/26/23 [History Last Taken 12/01/23] Allergy/AdvReac Type Severity Reaction Status Date / Time Iodinated Contrast Media Allergy Shortness Verified 11/30/23 22:29 [CONTRASTS] of breath iodine Allergy Other Verified 11/30/23 22:29 Family History Father CAD (coronary artery disease) Mother CAD (coronary artery disease) Sister CAD (coronary artery disease) CVA (cerebral vascular accident) Surgical History Abdominal Aortagram (08/18/13) H/O coronary artery bypass surgery (01/2003) History of appendectomy History of coronary artery stent placement (07/15/12) History of foreign body in respiratory tract History of left heart catheterization (09/27/21) History of lumbar spinal fusion (06/29/14) History of mechanical aortic valve replacement History of repair of right rotator cuff Status post placement of implantable loop recorder (2004) Social History Smoking Status: Former smoker quit date: 06/12/04 Tobacco: How many years used: 15 Vital Signs Vital Signs Vital Signs: 11/30/23 22:26 11/30/23 22:30 11/30/23 22:31 Temperature 97.8 F Temperature Source Temporal Pulse Rate 82 Respiratory Rate 16 Respiratory Effort Normal Non-Labored Normal Non-Labored Respiratory Depth Normal Respiratory Pattern Normal Normal Blood Pressure 161/65 H Blood Pressure Mean 97 Pulse Ox 95 Oxygen Delivery Method Room Air Room Air 11/30/23 23:26 12/01/23 00:00 Temperature 98 F Temperature Source Temporal Pulse Rate 75 72 Respiratory Rate 15 23 H Respiratory Effort Respiratory Depth Respiratory Pattern Blood Pressure 136/75 H 136/75 H Blood Pressure Mean 95 95 Pulse Ox 95 95 Oxygen Delivery Method Room Air Room Air Weight Weight: 250 lb 3.594 oz Body Mass Index (BMI) 33.0 Results Medical Records Data Attestation: I reviewed the patient's medical records Lab / Micro Data Attestation: I reviewed the patient's lab results. Lab results narrative: RUN DATE: 12/01/23 [facility], DEPARTMENT OF LABORATORIES PAGE 1 RUN TIME: 328 Specimen Inquiry [address] [facility] [place], [address] PATIENT: PASHA MATOS LOC: [facility] U #: [id number] : 1955 AGE/SX: 67/M FACILITY: [facility] ROOM: [facility] RE12/01/[address]: Zach Yao STATUS:ADM IN ED: 1 DIS: ~ SPEC #: [id number] DORIE: 12/01/23-99 STATUS: COMP REQ #: [id number] RECD: 12/01/23-[address]: Dr. Pasha Wesley DO ENTERED: 12/01/23-[address]: Dr. Bartolo Mitchell DO ~ Test Result Flag Adult Reference Range DRUG CONFIRM CONFIRMATORY TESTING FOR ALL POSITIVE URINE DRUG SCREEN RESULTS WILL ONLY BE SENT OUT UPON PHYSICIAN ORDER. VISTA Urine Drug Screen methods provide only preliminary analytical test results. A more specific alternate chemical method must be used in order to obtain a confirmed analytical result. Gas chromatography/mass spectrometery (GC/MS) is the preferred confirmatory method. Clinical consideration and professional judgement should be applied to any drug of abuse test result, particularly when preliminary positive results are used. URINE TCA TESTING MUST BE ORDERED SEPARATELY. USE TEST MNEMONIC: UTCA Previous reported result: Edited by: GIN on 12/01/23:0107 AMENDED REPORT 12/01/23106 TO BE CONFIRMED previously reported as: CONFIRMATORY TESTING FOR ALL POSITIVE URINE DRUG SCREEN RESULTS WILL ONLY BE SENT OUT UPON PHYSICIAN ORDER. VISTA Urine Drug Screen methods provide only preliminary analytical test results. A more specific alternate chemical method must be used in order to obtain a confirmed analytical result. Gas chromatography/mass spectrometery (GC/MS) is the preferred confirmatory method. Clinical consideration and professional judgement should be geetha lied to any drug of abuse test result, particularly when preliminary positive results are used. URINE TCA TESTING MUST BE ORDERED SEPARATELY. USE TEST MNEMONIC: [facility]CA UDS, VISTA VISTA UDS PH 6 AMPHETAMINES NEGATIVE <1000 ng/mL BARBITIURATES NEGATIVE < 200 ng/mL BENZODIAZIPINE NEGATIVE < 200 ng/mL COCAINE NEGATIVE < 300 ng/mL ECSTACY NEGATIVE < 500 ng/mL METHADONE NEGATIVE < 300 ng/mL OPIATES POSITIVE H < 300 ng/mL PCP NEGATIVE < 25 ng/mL THC POSITIVE H < 50 ng/mL 11/30/23 22:17 11/30/23 22:17 Labs: Laboratory Results - last 24 hr 11/30/23 22:17: WBC 6.8, RBC 3.85 L, Hgb 11.9 L, Hct 36.6 L, MCV 95.1 H, MCH 30 .9, MCHC 32.5, RDW Std Deviation 48.8 H, RDW Coeff of Adalberto 14.0, Plt Count 221, MPV 9.1, Immature Gran % (Auto) 0.600, Neut % (Auto) 70.0, Lymph % (Auto) 16.0 L , Runnels % (Auto) 13.3 H, Eos % (Auto) 0.0, Baso % (Auto) 0.1, Absolute Neuts (auto) 4.8, Absolute Lymphs (auto) 1.09, Nucleated RBC % 0, PT 34.9 H, INR 3.5, Sodium 136, Potassium 3.5, Chloride 104, Carbon Dioxide 26.0, Anion Gap 6, BUN 7, Creatinine 0.98, Estim Creat Clear Calc 97.89, Est GFR (MDRD) Af Amer 99, Est GFR (MDRD) Non-Af 82, BUN/Creatinine Ratio 7.2 L, Glucose 119 H, Calcium 8.5, Magnesium 1.6 Imaging Radiology Impression Brain CT 11/30/23 22:52 IMPRESSION: No acute intracranial pathology of the brain. Electronically Signed: Rolando Lou DO at 23:51 EDT , Cervical Spine CT 11/30/23 22:52 IMPRESSION: Degenerative changes of the cervical spine. Bilateral mastoiditis. Electronically Signed: Rolando Lou DO at 23:47 EDT , Assessment & Plan Assessment/Plan (1) Mobitz type 2 second degree atrioventricular block: (2) Syncope and collapse: (3) H/O mechanical aortic valve replacement: (4) H/O coronary artery bypass surgery: (5) History of coronary artery stent placement: PLAN: Plan 1. Mobitz type II heart block with patient care assistant on-call recommending pacemaker placement after recent syncopal event and patient on metoprolol - Admit to PCU. Avoid all AV-gee blocking agents and hold Lopressor to prevent potential recurrences or worsening of this issue. We will give gentle IV fluid hydration, check echocardiogram to evaluate left ventricular ejection fraction and check carotid Doppler to evaluate for stenosis. Finally, we will consult patient care assistant on-call to see this patient on rounds in the a.m. for further recommendations with help appreciated in advance. 2. Extensive history of coronary artery disease; status post CABG x 4 and non- ST elevation IA with stent plus mechanical aortic valve; on chronic Coumadin with recommendation to allow INR to slowly drift downward to allow for pacemaker implantation in the near future complicating #1 - Noted. Hold Coumadin until further notice. Check INR daily to know when it would be safest to proceed with intended pacemaker placement. 3. Essential hypertension; on metoprolol - Hold metoprolol as outlined above. Give IV hydralazine as needed for systolic blood pressure greater than 160 mmHg. 4. Chronic dementia; on Namenda and donepezil with listed history of cannabis abuse compounding #1 to #3 - Continue Namenda and donepezil as previous. Checked [place] urine drug screen to evaluate for other potential reversible causes of confusion with this test notably positive for opiates and THC. We will also check B12 and folate levels to evaluate for potential nutritional deficiencies that may be contributing to his chronic cognitive decline. 5. Hyperlipidemia - Resume statin and check lipid profile. 6. Obesity; with BMI of 33 this admission - Weight loss will be recommended. Check TSH in light of #1. 7. History of CVA (2009) - Noted. 8. Bipolar disorder - Continue home regimen as previous. 9. RLS - Resume current treatment plan. 10. GERD; with history of peptic ulcer disease and esophageal obstruction due to food impaction; presumably due to esophageal stenosis - Stable. Continue Protonix 40 mg p.o. twice daily as previous. 11. DDD of the lumbar spine; status post lumbar spine fusion (2013) - Noted. 12. Osteoarthritis - Stable. Give Tylenol as needed. 13. Remote history of tobacco abuse (quit 2003) - Noted. 14. DVT prophylaxis - Patient is on Coumadin for mechanical aortic valve replacement with INR 3.5 present on admission. Total time: Approximately 75 minutes. Charges/Coding Visit Charges Inpatient E&M: 46439 Init Hosp L3
--- NOTE | 2023-12-01 00:41 | ECHOD_ITS ---
Reason For Study: HEART BLOCK Procedure This was a 2D Doppler, Color Flow transthoracic echocardiogram. Exam performed portable in patient room. Left Ventricle Normal left ventricle. The estimated ejection fraction is 45-50 %. Repeat study using contrast echo for better evaluation of LV systolic function. Right Ventricle Normal right ventricle. Normal systolic function. Atria Normal left atrium. Normal right atrium. Bubble contrast study is negative for PFO/ASD. Mitral Valve There is mild to moderate mitral annular calcification. Trivial mitral valve insufficiency. Tricuspid Valve Normal tricuspid valve. Trivial tricuspid valve insufficiency. Aortic Valve Normal aortic valve mechanical prosthesis function With no significant aortic valve regurgitation Aortic valve area calculated 1.8 cm?? with a max pressure gradient of 20.8 and a mean pressure gradient of 10.8. Pulmonic Valve The pulmonic valve is not well visualized. Great Vessels Normal aortic root. Pericardium/Pleural No pericardial effusion. Medication Performed a rapid injection of agitated mix of 9 cc saline and 1cc air to assess for atrial septal defect. MMode/2D Measurements & Calculations RVDd: 4.7 cm LVOT diam: 2.0 cm Ao root diam: 4.4 cm LVOT area: 3.1 cm2 LAV(MOD-sp4): 48.9 ml SV(MOD-sp4): 30.3 ml LVAd ap4: 36.0 cm2 LVLd ap4: 9.5 cm EDV(MOD-sp4): 114.8 ml EDV(sp4-el): 115.5 ml LVAs ap4: 29.0 cm2 LVLs ap4: 8.5 cm ESV(MOD-sp4): 84.5 ml ESV(sp4-el): 83.3 ml EF(MOD-sp4): 26.4 % EF(sp4-el): 27.9 % SV(sp4-el): 32.2 ml LA dimension(2D): 3.9 cm LA A4 area: 19.0 cm2 TAPSE: 2.0 cm RA A4 area: 26.2 cm2 Doppler Measurements & Calculations MV E max bairon: 98.7 cm/sec Ao V2 max: 227.7 cm/sec LV V1 max: 133.2 cm/sec Ao max P.8 mmHg LV V1 max P.1 mmHg Ao V2 mean: 150.5 cm/sec LV V1 mean P.9 mmHg Ao mean P.8 mmHg LV V1 mean: 89.8 cm/sec Ao V2 VTI: 56.3 cm LV V1 VTI: 27.6 cm AV (velocity ratio): 0.49 JOCELYN(I,D): 1.5 cm2 JOCELYN(V,D): 1.8 cm2 SV(LVOT): 84.5 ml ECHO/Echo Complete Interpretation Summary The estimated ejection fraction is 45-50 %. Normal aortic valve mechanical prosthesis function With no significant aortic valve regurgitation Aortic valve area calculated 1.8 cm?? with a max pressure gradient of 20.8 and a mean pressure gradient of 10.8. Recommendations; Repeat study using contrast echo for better evaluation of LV systolic function Ordering Physician: Fady Wesley Referring Physician: ABDIRASHID RAND Performed By: Johana De Souza RCS
[2023-12-01 01:19] LABS: Amphetamine Urine VISTA NEGATIVE (<1000 ng/mL); Barbiturate Urine VISTA NEGATIVE (< 200 ng/mL); Benzodiazepine Urine VISTA NEGATIVE (< 200 ng/mL); Cocaine Urine VISTA NEGATIVE (< 300 ng/mL); Ecstacy Urine VISTA NEGATIVE (< 500 ng/mL); Methadone Urine VISTA NEGATIVE (< 300 ng/mL); PCP Urine VISTA NEGATIVE (< 25 ng/mL); THC Urine VISTA POSITIVE (< 50 ng/mL); Vista UDS pH Range 6
[2023-12-01] MEDS: 0.9% Normal Saline (1000mL) 1,000 ML 70 ML IV (01:30)
[2023-12-01 01:38] LABS: Valproic Acid (Depakene) Level < 3 ug/mL (50-100)
[2023-12-01] MEDS: Morphine 2 MG/ML Syringe 1 MG IV (03:25)
[2023-12-01] MEDS: Benztropine Mesylate 0.5 MG TABLET 1 MG PO ×3 (06:06→20:14)
[2023-12-01] MEDS: busPIRone 15 MG TABLET PO ×3 (06:06→20:14)
[2023-12-01 06:51] LABS: Absolute Lymphocyte Count 0.95 X10^3/uL (0.83-4.51); Absolute Neutrophil Count 5.2 X10^3/uL (2.0-7.7); Basophil# 0.01 X10^3/uL; Basophil% 0.1 % (0-1); Hematocrit 34.9 % (40-54); Hemoglobin 11.2 g/dL (13.0-16.5); Lymphocyte # 0.95 X10^3/ul (0.83-4.51); Lymphocyte % 13.1 % (19-41); Mean Corp Hgb Conc 32.1 g/dL (32-36); Mean Corpuscular Hgb 30.3 pg (27.0-32.0); Mean Corpuscular Volume 94.3 fL (80-94); Monocyte# 1.07 X10^3/uL; Monocyte% 14.7 % (0-10); NRBC Flagged by Analyzer 0 % (0-5); Neutrophil % 71.7 % (47-70); Platelet Count 219 K/mm3 (150-450); RBC Distribution Width CV 14.1 % (11.6-14.6); White Blood Count 7.3 K/mm3 (4.4-11.0)
[2023-12-01] MEDS: Budesonide Respules 0.5 MG/2 ML AMPUL.NEB. INHALATION ×2 (06:53→20:04)
[2023-12-01] MEDS: Albuterol 2.5 MG/3 ML VIAL.NEB. INHALATION ×2 (06:53→20:04)
[2023-12-01 07:01] LABS: International Normalized Ratio 3.3; Prothrombin Time (Protime)PT. 32.9 SECONDS (11.7-14.9)
[2023-12-01 07:19] LABS: ALB/GLOB Ratio 0.8 RATIO (0.9-2.4); AST(SGOT) 19 U/L (15-37); Alanine Aminotransfer ALT/SGPT 15 U/L (16-61); Albumin, Serum 2.8 g/dL (3.2-5.0); Alkaline Phosphatase 98 U/L (45-117); Anion Gap 4 (5-15); BUN 7 mg/dL (7-18); BUN/Creat Ratio 8.7 RATIO (10-20); Calcium,Total 7.8 mg/dL (8.5-10.1); Chloride 106 mmol/L (98-107); Creatinine, Serum 0.81 mg/dL (0.70-1.30); EST Glomerular Filtration Rate 102 mL/min (>60); Est Glom Filt Rate - Afr Amer 123 mL/min (>60); Estimated Creatinine Clearance 116.25 ml/min; Globulin 3.6 g/dL (2.2-4.2); Glucose 118 mg/dL (74-106); Magnesium 1.6 mg/dL (1.6-2.6); Phosphorus 2.6 mg/dL (2.5-4.9); Potassium 3.3 mmol/L (3.5-5.1); Protein, Total 6.4 g/dL (6.4-8.2); Sodium Level 137 mmol/L (136-145); Thyroid Stim Hormone (TSH) 1.17 uIU/mL (0.358-3.74)
[2023-12-01] MEDS: Acetaminophen 325 MG Tablet 650 MG PO (08:11)
[2023-12-01] MEDS: Cholecalciferol (VIT D3) 25 MCG TABLET (1,000 UNITS) 50 MCG PO (09:55)
[2023-12-01] MEDS: Senna/Docusate Sodium 1 Tablet 2 TABLET PO (09:55)
[2023-12-01] MEDS: FLUoxetine 20 MG Capsule PO (09:55)
[2023-12-01] MEDS: RisperiDONE 2 MG Tablet 4 MG PO ×2 (09:55→20:14)
[2023-12-01] MEDS: Potassium Chloride Oral Tablet 10 MEQ PO (09:56)
[2023-12-01] MEDS: Pantoprazole Sodium 40 MG Tablet PO ×2 (09:57→20:14)
[2023-12-01] MEDS: Memantine Hydrochloride 10 MG Tablet PO (09:57)
[2023-12-01] MEDS: Potassium Chloride Oral Tablet 20 MEQ 60 MEQ PO (09:58)
[2023-12-01] MEDS: oxyCODONE 5 MG Tablet PO ×2 (11:25→20:16)
--- NOTE | 2023-12-01 11:35 | CASEMGMT ---
RN?CM?[employer]IR[employer]?CM?to room to meet with patient for initial transition planning/care coordination?assessment.?RN?CM?introduced self and role at [facility].? Pt voices understanding and consents to?assessment?at this time.? Pt resting in bed in no distress at this time.? @ bedside. Pt is A/O at this time and answers all questions appropriately.?? Care providers, pharmacy, and demographics verified/updated at this time. PCP: Dr Mitchell Specialists:Lilliam Denney/ASSISTANT ART DIRECTOR-pulm, [facility] onc/Vlad, [facility]/cardiology Preferred Pharmacy: [facility] Insurance: [facility] A/B Prescription Benefit:?yes, [employer] Living Will/HPOA:?Pt does not currently have LW/HCPOA LNOK: Alissa Living Arrangements: Lives w/ and 2 adult sons in 2-story townhouse w/no steps to enter through yard, which is the entrance pt uses. Bedroom and bathroom is on 2nd floor and there is a bathroom on main floor as well. Pt is independent w/ADL's. manages his medications and does home mgnt tasks. Transportation:?Pt does not drive. provides transportation. DME: States has the following DME:?cane available but does not use. Has a CPAP but does not use it/has not used in a long time. Has a nebulizer. ?Pt and state no need for further DME at this time.? HHC/SNF: Hx [facility]. No hx of HHC. Went to [facility] in 2021 for OP therapy after surgery. Pt declines need for HHC or OP therapy. Pt wishes to return home and states has no concerns with going home at time of discharge.? CM?to follow for any discharge planning/needs.? Pt and voice no concerns/needs at this time.? PLAN:??Home w/spousal support and discharge plans in place. Melissa WASHINGTONN?RN?CM
--- NOTE | 2023-12-01 12:08 | PCM.PN.HOSP ---
Reason for Visit Reason for Visit: Syncope Subjective Subjective Mr. Matos is a 67-year-old white male who presented to the emergency department at [facility] on 12/01/2023 with syncope. He has a significant cardiac history with previous CABG x 4 in 2002 in conjunction with mechanical aortic valve replacement as well as NSTEMI with stent in 2011 who due to his dementia has trouble being a reliable historian so information was gathered from his chart and ER staff. It was reported that he was walking down a flight of stairs and about 30 minutes prior to the arrival to the emergency department when he complained of feeling dizzy and briefly passed out resulting him in falling and striking the wall with his head. No protective extension was noted with the fall. The patient reported he had no memory of the fall but the event was witnessed by family. In the emergency department an EKG was performed and he was found to be in Mobitz type II second-degree heart block and the on-call edge inker uppers recommended admission for pacemaker evaluation. He is on Coumadin chronically for his mechanical heart valve and is recommended that we hold this and let it drift down slowly for pacemaker implantation in the future. He was admitted to the PCU for ongoing monitoring on telemetry and cardiology was consulted. He has had ongoing Mobitz type II heart block with heart rates between the mid 50s to the mid 70s. He is currently asymptomatic and his only complaints are pain related to the fall. He asked if we could order some medication for him. I told him we would ordered scheduled Tylenol some as needed oxycodone to help with his injuries sustained in the fall. All imaging done related to the fall was negative for any signs of acute injury or fracture. Objective Data Objective Data Vital Signs: Vital Signs Temp Pulse Resp BP Pulse Ox O2 Del Method 97.7 F L 68 18 140/63 H 94 Room Air 12/01/23 09:50 12/01/23 09:50 12/01/23 09:50 12/01/23 09:50 12/01/23 09:50 12/01/23 09:50 Oxygen Delivery Method Room Air Weight: 109.2 kg Body Mass Index (BMI) 31.7 Intake & Output: Intake and Output for Last 24 Hours 11/29/23 11/30/23 12/01/23 23:59 23:59 23:59 Intake Total 0 / 0 1552.17 / 1552.17 Output Total 1200 / 1200 Balance 0 / 0 352.17 / 352.17 Lab / Micro Data 12/01/23 06:30 12/01/23 06:30 Labs: Laboratory Results - last 24 hr 11/30/23 22:17: WBC 6.8, RBC 3.85 L, Hgb 11.9 L, Hct 36.6 L, MCV 95.1 H, MCH 30.9, MCHC 32.5, RDW Std Deviation 48.8 H, RDW Coeff of Adalberto 14.0, Plt Count 221, MPV 9.1, Immature Gran % (Auto) 0.600, Neut % (Auto) 70.0, Lymph % (Auto) 16.0 L, [place] % (Auto) 13.3 H, Eos % (Auto) 0.0, Baso % (Auto) 0.1, Absolute Neuts (auto) 4.8, Absolute Lymphs (auto) 1.09, Nucleated RBC % 0, PT 34.9 H, INR 3.5, Sodium 136, Potassium 3.5, Chloride 104, Carbon Dioxide 26.0, Anion Gap 6, BUN 7, Creatinine 0.98, Estim Creat Clear Calc 97.89, Est GFR (MDRD) Af Amer 99, Est GFR (MDRD) Non-Af 82, BUN/Creatinine Ratio 7.2 L, Glucose 119 H, Calcium 8.5, Magnesium 1.6 12/01/23 01:00: Urine Opiates Screen POSITIVE H, Urine Methadone Screen NEGATIVE, Ur Barbiturates Screen NEGATIVE, Valproic Acid < 3 L, Ur Phencyclidine Scrn NEGATIVE, Ur Amphetamines Screen NEGATIVE, MDMA (Ecstasy) Screen NEGATIVE, U Benzodiazepines Scrn NEGATIVE, Urine Cocaine Screen NEGATIVE, U Cannabinoids Screen POSITIVE H, Ur Drug Screen Comment 12/01/23 06:30: WBC 7.3, RBC 3.70 L, Hgb 11.2 L, Hct 34.9 L, MCV 94.3 H, MCH 30.3, MCHC 32.1, RDW Std Deviation 49.0 H, RDW Coeff of Adalberto 14.1, Plt Count 219, MPV 9.0, Immature Gran % (Auto) 0.400, Neut % (Auto) 71.7 H, Lymph % (Auto) 13.1 L, [place] % (Auto) 14.7 H, Eos % (Auto) 0.0, Baso % (Auto) 0.1, Absolute Neuts (auto) 5.2, Absolute Lymphs (auto) 0.95, Nucleated RBC % 0, PT 32.9 H, INR 3.3, Sodium 137, Potassium 3.3 L, Chloride 106, Carbon Dioxide 27.0, Anion Gap 4 L, BUN 7, Creatinine 0.81, Estim Creat Clear Calc 116.25, Est GFR (MDRD) Af Amer 123, Est GFR (MDRD) Non-Af 102, BUN/Creatinine Ratio 8.7 L, Glucose 118 H, Calcium 7.8 L, Phosphorus 2.6, Magnesium 1.6, Total Bilirubin 0.50, AST 19, ALT 15 L, Alkaline Phosphatase 98, Total Protein 6.4, Albumin 2.8 L, Globulin 3.6, Albumin/Globulin Ratio 0.8 L, Folate 5.70, TSH 1.17 Radiography Diagnostic Testing: Radiology Impression Brain CT 11/30/23 22:52 IMPRESSION: No acute intracranial pathology of the brain. Electronically Signed: Rolando Lou DO at 23:51 EDT , Cervical Spine CT 11/30/23 22:52 IMPRESSION: Degenerative changes of the cervical spine. Bilateral mastoiditis. Electronically Signed: Rolando Lou DO at 23:47 EDT , Chest X-Ray 11/30/23 23:15 IMPRESSION: No acute cardiopulmonary disease. Electronically Signed: Constantino Melendez MD at 0:54 EDT , Lumbar Spine X-Ray 11/30/23 23:20 IMPRESSION: 1. Multilevel spine degenerative changes. 2. Chronic vertebral body height loss involving the L1 and L2 levels. 3. No acute osseous abnormalities. 4. No hardware complications associated with L4-5 posterior osteometallic fusion. 5. 4.3 cm infrarenal abdominal aortic aneurysm. Electronically Signed: Constantino Melendez MD at 1:01 EDT , Pelvis X-Ray 11/30/23 23:23 IMPRESSION: Mild degenerative changes of the hip joints bilaterally. No acute osseous abnormalities or malalignment. No other findings to explain pain. Electronically Signed: Constantino Melendez MD at 0:37 EDT , Thoracic Spine X-Ray 11/30/23 23:28 IMPRESSION: Mild degenerative changes. No acute or healing fracture or malalignment. Electronically Signed: Constantino Melendez MD at 0:33 EDT , Physical Exam Const alert, no apparent distress and well nourished Constitutional Narrative: Chronically ill, obese, white male, sitting up in bed, appears much older than stated age, currently appears comfortable and nontoxic, watching television HEENT head/scalp atraumatic and moist oral mucous membranes HEENT Narrative: No abrasions or ecchymosis noted on head from fall, dentition is poor, Mallampati is 3, no thrush Head and Scalp: normocephalic Resp normal respiratory effort, no retractions, no use of accessory muscles and clear to auscultation bilaterally Resp Narrative: Diminished but clear Auscultation: Negative for rales, rhonchi or wheezes Cardio regular rate, S1 normal heart sound, S2 normal heart sound, no murmurs, no rub and no gallops; Negative for no clicks Cardio Narrative: Rhythm is somewhat irregular, positive click GI normal to inspection, nondistended, normoactive bowel sounds, soft to palpation and non-tender Extremity no clubbing, cyanosis or edema Extremity Narrative: Pedal pulses are 2+ Neuro moves all extremities and no focal motor deficits Speech: speech normal Psych Psych Narrative: Affect is slightly flat, eye contact is good and patient interacts appropriately Assessment & Plan Assessment/Plan (1) Syncope: (2) Mobitz type 2 second degree atrioventricular block: (3) Hypokalemia: PLAN: Plan Syncope secondary to Mobitz type II heart block -Per ER discussion with on-call edge inker uppers pacemaker was recommended -Will hold Coumadin but no reversal agents for now -Cardiology consult is pending -Avoid all AV gee blocking agents and hold home Lopressor -Stop IV fluids -Echocardiogram is pending -Will hold on carotid ultrasound for now given the above -Could consider in the future if recurrent syncope is problematic -TSH is within normal limits -Cardiology consultation is pending Hypokalemia -Potassium replacement given -Repeat lab in a.m. -Check a.m. magnesium level Chronic macrocytic anemia -Hemoglobin stable -Continue to monitor -Folic acid is normal -B12 is pending Supratherapeutic INR -Goal INR for mechanical aortic valve is 2-3 -3.5 on admission -3.3 today -Repeat INR in a.m. -Continue to hold Coumadin CAD/HTN/HPL/aortic valve insufficiency/history of atrial fibrillation -CABG in 2019 with MEDINA to the LAD, saphenous vein graft to the diagonal and obtuse marginal, and a saphenous vein graft to the PDA--> 2023 had atypical substernal chest pain with repeat catheterization showing some stenosis in the MEDINA to the LAD which required balloon angioplasty--> 2011 stent to first diagonal--> 2020 left heart cath with right coronary artery was 60% in-stent stenosis that was decided to be treated with medical management -Aortic valve replacement in 2004 with [facility] mechanical aortic valve (had anatomic bicuspid aortic valve)--> Dr. Philippe -Hold metoprolol due to the above -Hold aspirin -Continue home atorvastatin -Hold Coumadin -Continue home Lasix Infrarenal aortic aneurysm -Measured at 4.3 cm -Will need outpatient vascular follow-up to monitor but no acute needs at this time History of asthma/COPD stage I -Follows with pulmonary medicine -Vapes -Continue home inhalers -Continue home Singulair AJMES -Patient is noncompliant with CPAP Restless leg syndrome -Continue home treatment GERD/history of peptic ulcer disease/history of esophageal obstruction due to food impaction -Previous esophageal stenosis had been dilated -Continue Protonix 40 mg twice daily Dementia-suspect vascular with previous stroke -Hold donepezil and Namenda as they both can cause bradycardia History of stroke -Aspirin on hold due to possible need for pacemaker placement -PT/OT consultation History of OA -Will schedule Tylenol as the patient is sore after his fall -As needed oxycodone DDD of the lumbar spine -History of lumbar fusion in 2013 -Pain management as above History of bipolar disorder -Continue home risperidone -Continue home trazodone -Continue on fluoxetine -Continue home BuSpar -Continue home Cogentin Obesity -BMI 31.8 -Recommend weight loss next-complicates treatment, prognosis, outcomes Marijuana abuse -Recommend cessation DVT prophylaxis -Patient's INR is still supratherapeutic at 3.3 -Continue to monitor CODE STATUS -Full code but will need to verify with family once available Charges/Coding Visit Charges Inpatient E&M: 72296 Subs Hosp L2
[2023-12-01] MEDS: Acetaminophen 500 MG Tablet 1000 MG PO ×2 (14:39→20:14)
--- NOTE | 2023-12-01 15:02 | CON.PCM.CA_ITS ---
Assessment & Plan Assessment/Plan (1) H/O mechanical aortic valve replacement: (2) H/O coronary artery bypass surgery: (3) History of coronary artery stent placement: (4) Essential hypertension: (5) Hyperlipidemia: QUALIFIERS: Hyperlipidemia type: unspecified Qualified Code(s): E78.5 - Hyperlipidemia, unspecified (6) COPD (chronic obstructive pulmonary disease): (7) Mobitz type 2 second degree atrioventricular block: (8) Hypokalemia: (9) Syncope and collapse: PLAN: Plan 67-year-old patient presented to the ER at [facility] with syncope. Patient has extensive cardiac history with history of CABG x 4 this was in 2002 Subsequently he had a PCI and stents in 1999 for PCI to the mid RCA and PCI to the SVG graft to the diagonal The bypass graft include MEDINA to LAD, SVG to D1, SVG to OM2, SVG to RPDA. Patient also has aortic valve prosthesis/mechanical valve and has been on anticoagulation with Coumadin. The event of syncope he is at home coming from the stairs and then he had a fall and hit his head and his son was at the at the scene No seizure disorder reported. Other medical problem include history of COPD, JAMES GERD prior history of stroke and history of dementia Cardiac care plan recommendation; In this admission patient has evaluation by EKG which demonstrated evidence of underlying left bundle branch block Has Mobitz type II AV block has been stable hemodynamically does not require urgent temporary pacer Review of the echocardiogram showed his EF in the range of 45?50 With normal aortic valve prosthetic function Cardiac care plan discussed patient has symptomatic bradycardia he is currently not on any beta-jd And has abnormal EKG and environmental monitoring specialist showing Mobitz type II AV block This class I indication for permanent pacemaker implant We will manage his anticoagulation with we will hold on the Coumadin continue to monitor INR Also will resume and start on heparin once INR is less than 1.5. With the plan of permanent pacemaker during this admission. I discussed cardiac care plan medication and environmental monitoring specialist findings in detail with the patient as well as with the nursing staff. Abisai Ko MD,[facility] HPI Consult Data Date of Consult: 12/01/23 HPI Narrative Reason for Consultation: CAD/CABG/AVR-syncope with Mobitz type II HPI Narrative: PASHA DENISE, is a 67 M who [facility] Medical History (Updated 12/01/23 @ 15:[address] Abisai Ko MD) Aortic root dilatation Arthritis Atherosclerosis of coronary artery of [place] heart without angina pectoris Bicuspid aortic valve Bipolar 1 disorder Cancer CVA (cerebral vascular accident) (2009) Dementia Depression Esophageal obstruction due to food impaction Essential hypertension GERD (gastroesophageal reflux disease) Hyperlipidemia meterman current use of anticoagulant Lumbar disc disease Marijuana use Non-ST elevation (NSTEMI) myocardial infarction Nonrheumatic aortic (valve) stenosis with insufficiency Peptic ulcer disease Restless legs Right rotator cuff tear arthropathy Shortness of breath on exertion Sleep apnea Wears dentures Wears glasses Wide-complex tachycardia Home Medications benztropine 2 mg tablet 1 mg PO TID shaking 10/20/15 [History Last Taken 12/01/23] buspirone 10 mg tablet 15 mg PO TID anxiety 09/12/18 [History Last Taken 12/01/23] donepezil 10 mg tablet (Aricept) 10 mg PO QHS memory 10/03/18 [History Last Taken 12/01/23] fluoxetine 40 mg capsule 20 mg PO DAILY mental health 04/19/20 [History Last Taken 12/01/23] cholecalciferol (vitamin D3) 50 mcg (2,000 unit) tablet 50 mcg PO DAILY vitamin 11/01/20 [History Last Taken 12/01/23] pantoprazole 40 mg tablet,delayed release 40 mg PO BID reflux 11/01/20 [History Last Taken 12/01/23] trazodone 50 mg tablet 50 mg PO QHS sleep 08/15/21 [History Last Taken 12/01/23] aspirin 81 mg tablet 81 mg PO DAILY BLOOD THINNER 09/27/21 [History Last Taken 12/01/23] albuterol sulfate 2.5 mg/3 mL (0.083 %) solution for nebulization 2.5 mg (3 mL) inhalation Q4H PRN Sob &/Or Wheezing #180 mL 02/02/22 [Rx Last Taken Unknown] risperidone 4 mg tablet 4 mg PO BID FOR BRAIN 02/02/22 [History Last Taken 12/01/23] furosemide 40 mg tablet (Lasix) 40 mg PO DAILY HEART 04/07/22 [History Last Taken Unknown] montelukast 10 mg tablet (Singulair) 10 mg PO QHS allergies 04/07/22 [History Last Taken 12/01/23] sennosides 8.6 mg-docusate sodium 50 mg tablet (Stool Softener-Stimulant Laxative) 2 tab PO BID BM #30 tabs 04/20/22 [Rx Last Taken Unknown] benralizumab 30 mg/mL subcutaneous syringe (Fasenra) 30 mg subcut Q8W #1 mL 09/14/22 [Rx Last Taken Unknown] metoprolol tartrate 50 mg tablet (Lopressor) 50 mg PO BID BP #180 tabs 12/10/22 [Rx Last Taken 12/01/23] warfarin 5 mg tablet 5 mg PO .COMPLEX BLOOD #90 tabs 04/05/23 [Rx Last Taken Unknown] warfarin 1 mg tablet 1 mg PO .COMPLEX BLOOD THINNER #45 tabs 07/30/23 [Rx Last Taken 12/01/23] warfarin 6 mg tablet 6 mg PO .COMPLEX BLOOD THINNER #90 tabs 07/30/23 [Rx Last Taken Unknown] atorvastatin 40 mg tablet 40 mg PO QHS #90 tabs 11/14/23 [Rx Last Taken Unknown] doxycycline monohydrate 100 mg capsule 100 mg PO BID ABX #14 CAPSULES 11/26/23 [Rx Last Taken 12/01/23] memantine 5 mg tablet (Namenda) 10 mg PO BID memory 11/26/23 [History Last Taken 12/01/23] Allergy/AdvReac Type Severity Reaction Status Date / Time Iodinated Contrast Media Allergy Shortness Verified 11/30/23 22:29 [CONTRASTS] of breath iodine Allergy Other Verified 11/30/23 22:29 Family History Father CAD (coronary artery disease) Mother CAD (coronary artery disease) Sister CAD (coronary artery disease) CVA (cerebral vascular accident) Surgical History (Updated 12/01/23 @ 13:[address] Maria Luisa Sunshine DO) Abdominal Aortagram (08/18/13) H/O coronary artery bypass surgery (01/2003) History of appendectomy History of coronary artery stent placement (07/15/12) History of foreign body in respiratory tract History of left heart catheterization (09/27/21) History of lumbar spinal fusion (06/29/14) History of mechanical aortic valve replacement History of repair of right rotator cuff Status post placement of implantable loop recorder (2004) Status post reverse total arthroplasty of right shoulder Social History Smoking Status: Former smoker quit date: 06/12/04 Tobacco: How many years used: 15 Physical Exam Cardio Cardio Narrative: Seen and evaluated at bedside discussed with the nursing staff Review of the cardiac telemetry showed Mobitz type II AV block Cardiac exam normal aortic valve prosthetic sounds Chest exam clear to auscultation bilateral Examination lower extremity lower extremity edema Risk Stratification Risk Stratification Applicable: No Objective Data Vital Signs: Vital Signs Temp Pulse Resp BP Pulse Ox O2 Del Method 97.7 F L 68 18 140/63 H 94 Room Air 12/01/23 09:50 12/01/23 09:50 12/01/23 09:50 12/01/23 09:50 12/01/23 09:50 12/01/23 14:27 Oxygen Delivery Method Room Air Weight: 240 lb 11.916 oz Body Mass Index (BMI) 31.7 Intake & Output: Intake and Output for Last 24 Hours 11/29/23 11/30/23 12/01/23 23:59 23:59 23:59 Intake Total 0 / 0 1552.17 / 1552.17 Output Total 1200 / 1200 Balance 0 / 0 352.17 / 352.17 Lab / Micro Data 12/01/23 06:30 12/01/23 06:30 Labs: Laboratory Results - last 24 hr 11/30/23 22:17: WBC 6.8, RBC 3.85 L, Hgb 11.9 L, Hct 36.6 L, MCV 95.1 H, MCH 30.9, MCHC 32.5, RDW Std Deviation 48.8 H, RDW Coeff of Adalberto 14.0, Plt Count 221, MPV 9.1, Immature Gran % (Auto) 0.600, Neut % (Auto) 70.0, Lymph % (Auto) 16.0 L, [place] % (Auto) 13.3 H, Eos % (Auto) 0.0, Baso % (Auto) 0.1, Absolute Neuts (auto) 4.8, Absolute Lymphs (auto) 1.09, Nucleated RBC % 0, PT 34.9 H, INR 3.5, Sodium 136, Potassium 3.5, Chloride 104, Carbon Dioxide 26.0, Anion Gap 6, BUN 7, Creatinine 0.98, Estim Creat Clear Calc 97.89, Est GFR (MDRD) Af Amer 99, Est GFR (MDRD) Non-Af 82, BUN/Creatinine Ratio 7.2 L, Glucose 119 H, Calcium 8.5, Magnesium 1.6 12/01/23 01:00: Urine Opiates Screen POSITIVE H, Urine Methadone Screen NEGATIVE, Ur Barbiturates Screen NEGATIVE, Valproic Acid < 3 L, Ur Phencyclidine Scrn NEGATIVE, Ur Amphetamines Screen NEGATIVE, MDMA (Ecstasy) Screen NEGATIVE, U Benzodiazepines Scrn NEGATIVE, Urine Cocaine Screen NEGATIVE, U Cannabinoids Screen POSITIVE H, Ur Drug Screen Comment 12/01/23 06:30: WBC 7.3, RBC 3.70 L, Hgb 11.2 L, Hct 34.9 L, MCV 94.3 H, MCH 30.3, MCHC 32.1, RDW Std Deviation 49.0 H, RDW Coeff of Adalberto 14.1, Plt Count 219, MPV 9.0, Immature Gran % (Auto) 0.400, Neut % (Auto) 71.7 H, Lymph % (Auto) 13.1 L, [place] % (Auto) 14.7 H, Eos % (Auto) 0.0, Baso % (Auto) 0.1, Absolute Neuts (auto) 5.2, Absolute Lymphs (auto) 0.95, Nucleated RBC % 0, PT 32.9 H, INR 3.3, Sodium 137, Potassium 3.3 L, Chloride 106, Carbon Dioxide 27.0, Anion Gap 4 L, BUN 7, Creatinine 0.81, Estim Creat Clear Calc 116.25, Est GFR (MDRD) Af Amer 123, Est GFR (MDRD) Non-Af 102, BUN/Creatinine Ratio 8.7 L, Glucose 118 H, Calcium 7.8 L, Phosphorus 2.6, Magnesium 1.6, Total Bilirubin 0.50, AST 19, ALT 15 L, Alkaline Phosphatase 98, Total Protein 6.4, Albumin 2.8 L, Globulin 3.6, Albumin/Globulin Ratio 0.8 L, Folate 5.70, TSH 1.17 Cardiology Labs/Tests 11/30/23 22:17: WBC 6.8, RBC 3.85 L, Hgb 11.9 L, Hct 36.6 L, MCV 95.1 H, MCH 30.9, MCHC 32.5, Plt Count 221, MPV 9.1, Immature Gran % (Auto) 0.600, Neut % (Auto) 70.0, Lymph % (Auto) 16.0 L, [place] % (Auto) 13.3 H, Eos % (Auto) 0.0, Baso % (Auto) 0.1, Absolute Neuts (auto) 4.8, Nucleated RBC % 0, PT 34.9 H, INR 3.5, Sodium 136, Potassium 3.5, Chloride 104, Carbon Dioxide 26.0, Anion Gap 6, BUN 7, Creatinine 0.98, Est GFR (MDRD) Af Amer 99, Est GFR (MDRD) Non-Af 82, BUN/Creatinine Ratio 7.2 L, Glucose 119 H, Calcium 8.5, Magnesium 1.6 12/01/23 06:30: WBC 7.3, RBC 3.70 L, Hgb 11.2 L, Hct 34.9 L, MCV 94.3 H, MCH 30.3, MCHC 32.1, Plt Count 219, MPV 9.0, Immature Gran % (Auto) 0.400, Neut % (Auto) 71.7 H, Lymph % (Auto) 13.1 L, [place] % (Auto) 14.7 H, Eos % (Auto) 0.0, Baso % (Auto) 0.1, Absolute Neuts (auto) 5.2, Nucleated RBC % 0, PT 32.9 H, INR 3.3, Sodium 137, Potassium 3.3 L, Chloride 106, Carbon Dioxide 27.0, Anion Gap 4 L, BUN 7, Creatinine 0.81, Est GFR (MDRD) Af Amer 123, Est GFR (MDRD) Non-Af 102, BUN/Creatinine Ratio 8.7 L, Glucose 118 H, Calcium 7.8 L, Phosphorus 2.6, Magnesium 1.6, Total Bilirubin 0.50 Rhythm: EKG: ECHO: Stress Test: Cardiac Cath: PCI: CT Surgery: Holter monitor: EPS: PPM: CXR: Chest CT Scan: Radiography Diagnostic Testing: Radiology Impression Brain CT 11/30/23 22:52 IMPRESSION: No acute intracranial pathology of the brain. Electronically Signed: Rolando Lou DO at 23:51 EDT , Cervical Spine CT 11/30/23 22:52 IMPRESSION: Degenerative changes of the cervical spine. Bilateral mastoiditis. Electronically Signed: Rolando Lou DO at 23:47 EDT , Chest X-Ray 11/30/23 23:15 IMPRESSION: No acute cardiopulmonary disease. Electronically Signed: Constantino Melendez MD at 0:54 EDT , Lumbar Spine X-Ray 11/30/23 23:20 IMPRESSION: 1. Multilevel spine degenerative changes. 2. Chronic vertebral body height loss involving the L1 and L2 levels. 3. No acute osseous abnormalities. 4. No hardware complications associated with L4-5 posterior osteometallic fusion. 5. 4.3 cm infrarenal abdominal aortic aneurysm. Electronically Signed: Constantino Melendez MD at 1:01 EDT , Pelvis X-Ray 11/30/23 23:23 IMPRESSION: Mild degenerative changes of the hip joints bilaterally. No acute osseous abnormalities or malalignment. No other findings to explain pain. Electronically Signed: Constantino Melendez MD at 0:37 EDT , Thoracic Spine X-Ray 11/30/23 23:28 IMPRESSION: Mild degenerative changes. No acute or healing fracture or malalignment. Electronically Signed: Constantino Melendez MD at 0:33 EDT , Echocardiogram 12/01/23 00:41 Interpretation Summary The estimated ejection fraction is 45-50 %. Normal aortic valve mechanical prosthesis function With no significant aortic valve regurgitation Aortic valve area calculated 1.8 cm?? with a max pressure gradient of 20.8 and a mean pressure gradient of 10.8. Recommendations; Repeat study using contrast echo for better evaluation of LV systolic function Ordering Physician: Pasha Wesley Referring Physician: ABDIRASHID RAND Performed By: Johana De Souza RCS
--- NOTE | 2023-12-01 18:00 | CASEMGMT ---
Social Work - SDOH assessment Social Determinants of Health Assessment completed. Patient would benefit from resources related to food assistance including food pantries and Meals on Wheels. Patient reports to be having a procedure on Sunday and anticipate will be in hospital until Sunday or Sunday. Plan: SW to follow up with printed resources prior to discharge. -MELISSA Ward
[2023-12-01] MEDS: Montelukast 10 MG Tablet PO (20:16)
[2023-12-01] MEDS: Atorvastatin Calcium 10 MG Tablet PO (20:16)
[2023-12-01] MEDS: traZODone 50 MG Tablet PO (20:16)
[2023-12-01] MEDS: MELATONIN 3 MG TABLET PO (20:16)
[2023-12-02] VITALS (7 sets, daily range): BP systolic 109–134; BP diastolic 56–80; PULSE 50–92; RESP 18; TEMP 36.2–37.3; O2SAT 92–99; BMI 31.2; BMI 31.1; BMI 31.8
[2023-12-02] MEDS: busPIRone 15 MG TABLET PO ×3 (05:06→21:21)
[2023-12-02] MEDS: oxyCODONE 5 MG Tablet PO ×4 (05:06→23:32)
[2023-12-02] MEDS: Acetaminophen 500 MG Tablet 1000 MG PO ×3 (05:06→23:33)
[2023-12-02] MEDS: Benztropine Mesylate 0.5 MG TABLET 1 MG PO ×3 (05:33→21:21)
[2023-12-02 06:26] LABS: Absolute Lymphocyte Count 0.63 X10^3/uL (0.83-4.51); Absolute Neutrophil Count 3.5 X10^3/uL (2.0-7.7); Hematocrit 36.9 % (40-54); Hemoglobin 11.6 g/dL (13.0-16.5); Lymphocyte # 0.63 X10^3/ul (0.83-4.51); Lymphocyte % 13.2 % (19-41); Mean Corp Hgb Conc 31.4 g/dL (32-36); Mean Corpuscular Hgb 30.5 pg (27.0-32.0); Mean Corpuscular Volume 97.1 fL (80-94); Mean Platelet Vol. 8.8 fl (6.2-12.0); Monocyte# 0.68 X10^3/uL; Monocyte% 14.2 % (0-10); NRBC Flagged by Analyzer 0 % (0-5); Neutrophil # 3.46 X10^3/uL (2.7-7.7); Neutrophil % 72.2 % (47-70); Platelet Count 192 K/mm3 (150-450); RBC Distribution Width CV 14.6 % (11.6-14.6); RBC Distribution Width SD 52.2 fl (35.1-43.9); White Blood Count 4.8 K/mm3 (4.4-11.0)
[2023-12-02 06:50] LABS: Anion Gap 4 (5-15); BUN 6 mg/dL (7-18); BUN/Creat Ratio 7.7 RATIO (10-20); Calcium,Total 8.1 mg/dL (8.5-10.1); Chloride 106 mmol/L (98-107); Creatinine, Serum 0.78 mg/dL (0.70-1.30); EST Glomerular Filtration Rate 106 mL/min (>60); Est Glom Filt Rate - Afr Amer 129 mL/min (>60); Estimated Creatinine Clearance 116.73 ml/min; Glucose 111 mg/dL (74-106); Potassium 3.7 mmol/L (3.5-5.1); Sodium Level 138 mmol/L (136-145)
[2023-12-02] MEDS: Albuterol 2.5 MG/3 ML VIAL.NEB. INHALATION ×2 (07:19→13:54)
[2023-12-02] MEDS: Budesonide Respules 0.5 MG/2 ML AMPUL.NEB. INHALATION (07:19)
[2023-12-02 08:17] LABS: International Normalized Ratio 3.6; Prothrombin Time (Protime)PT. 35.8 SECONDS (11.7-14.9)
[2023-12-02] MEDS: Pantoprazole Sodium 40 MG Tablet PO ×2 (08:52→21:21)
[2023-12-02] MEDS: Potassium Chloride Oral Tablet 10 MEQ PO (08:52)
[2023-12-02] MEDS: RisperiDONE 2 MG Tablet 4 MG PO ×2 (08:52→21:21)
[2023-12-02] MEDS: Cholecalciferol (VIT D3) 25 MCG TABLET (1,000 UNITS) 50 MCG PO (08:52)
[2023-12-02] MEDS: FLUoxetine 20 MG Capsule PO (08:52)
[2023-12-02] MEDS: Phytonadione (Vit K1) 5 MG TABLET PO (10:27)
--- NOTE | 2023-12-02 12:02 | PCM.PN.HOSP ---
Reason for Visit Reason for Visit: Syncope Subjective Subjective No issues overnight. We discussed the plan for pacemaker placement hopefully tomorrow for get his INR down. He did ask if he can go home after the pacemaker was placed and I did explain he would have to stay for 24 hours following and then if it was stable he would be able to go home. He voiced understanding was appreciative. Objective Data Objective Data Vital Signs: Vital Signs Temp Pulse Resp BP Pulse Ox O2 Del Method 97.2 F L 55 L 18 119/79 95 Room Air 12/02/23 08:48 12/02/23 08:48 12/02/23 08:48 12/02/23 08:48 12/02/23 08:48 12/02/23 08:48 Oxygen Delivery Method Room Air Weight: 107.3 kg Body Mass Index (BMI) 31.1 Intake & Output: Intake and Output for Last 24 Hours 11/30/23 12/01/23 12/02/23 23:59 23:59 23:59 Intake Total 0 / 0 2552.17 / 2552.17 700 / 700 Output Total 2675 / 2675 Balance 0 / 0 -122.83 / -122.83 700 / 700 Lab / Micro Data 12/02/23 05:17 12/02/23 05:17 Labs: Laboratory Results - last 24 hr 12/02/23 05:17: WBC 4.8, RBC 3.80 L, Hgb 11.6 L, Hct 36.9 L, MCV 97.1 H, MCH 30.5, MCHC 31.4 L, RDW Std Deviation 52.2 H, RDW Coeff of Adalberto 14.6, Plt Count 192, MPV 8.8, Immature Gran % (Auto) 0.400, Neut % (Auto) 72.2 H, Lymph % (Auto) 13.2 L, Dickson % (Auto) 14.2 H, Eos % (Auto) 0.0, Baso % (Auto) 0.0, Absolute Neuts (auto) 3.5, Absolute Lymphs (auto) 0.63 L, Nucleated RBC % 0, PT 35.8 H, INR 3.6, Sodium 138, Potassium 3.7, Chloride 106, Carbon Dioxide 28.0, Anion Gap 4 L, BUN 6 L, Creatinine 0.78, Estim Creat Clear Calc 116.73, Est GFR (MDRD) Af Amer 129, Est GFR (MDRD) Non-Af 106, BUN/Creatinine Ratio 7.7 L, Glucose 111 H, Calcium 8.1 L Radiography Diagnostic Testing: Radiology Impression Echocardiogram 12/01/23 00:41 Interpretation Summary The estimated ejection fraction is 45-50 %. Normal aortic valve mechanical prosthesis function With no significant aortic valve regurgitation Aortic valve area calculated 1.8 cm?? with a max pressure gradient of 20.8 and a mean pressure gradient of 10.8. Recommendations; Repeat study using contrast echo for better evaluation of LV systolic function Ordering Physician: Fady Wesley Referring Physician: ABDIRASHID RAND Performed By: Johana De Souza RCS Physical Exam Const alert, oriented x3, no apparent distress and well nourished Constitutional Narrative: Chronically ill, obese, white male, sitting up in a chair at the bedside, appears much older than stated age, currently appears comfortable and nontoxic, watching television HEENT head/scalp atraumatic and moist oral mucous membranes HEENT Narrative: Mallampati is 3, no thrush Head and Scalp: normocephalic Resp normal respiratory effort, no retractions, no use of accessory muscles and clear to auscultation bilaterally Resp Narrative: Diminished but clear Auscultation: Negative for rales, rhonchi or wheezes Cardio S1 normal heart sound, S2 normal heart sound, no murmurs, no rub and no gallops; Negative for no clicks Cardio Narrative: Rhythm is somewhat irregular, positive click, slightly bradycardic GI normal to inspection, nondistended, normoactive bowel sounds, soft to palpation and non-tender Extremity no clubbing, cyanosis or edema Extremity Narrative: Pedal pulses are 2+ Neuro oriented x3, moves all extremities and no focal motor deficits Speech: speech normal Psych Psych Narrative: Less flat today, more interactive, eye contact is good, patient interacts appropriately Assessment & Plan Assessment/Plan (1) Syncope: (2) Mobitz type 2 second degree atrioventricular block: (3) Hypokalemia: PLAN: Plan Syncope secondary to Mobitz type II heart block -Per ER discussion with on-call coding manager pacemaker was recommended -Coumadin on hold and will give 5 mg of p.o. vitamin K today -Avoid all AV gee blocking agents and hold home Lopressor -Stop Namenda and donepezil as these can cause bradycardia as well -Echocardiogram showed an EF of 45 to 50% with normal aortic valve mechanical prosthesis and no aortic valve regurgitation -TSH is within normal limits -Cardiology is planning for pacemaker placement tomorrow -Repeat INR in the a.m. Hypokalemia -Resolved Chronic macrocytic anemia -Hemoglobin remained stable -Continue to monitor -Folic acid is normal -B12 level remains pending Supratherapeutic INR -Goal INR for mechanical aortic valve is 2-3 -3.5 on admission - up from 3.3 yesterday to 3.6 today -Initial plan was just to hold Coumadin and let him drift down naturally however since he is up today and plan is for pacemaker tomorrow will give 5 mg of vitamin K today -Once INR is 1.5 or less start heparin drip -Repeat INR in a.m. -Continue to hold Coumadin CAD/HTN/HPL/aortic valve insufficiency/history of atrial fibrillation -CABG in 2019 with MEDINA to the LAD, saphenous vein graft to the diagonal and obtuse marginal, and a saphenous vein graft to the PDA--> 2023 had atypical substernal chest pain with repeat catheterization showing some stenosis in the MEDINA to the LAD which required balloon angioplasty--> 2011 stent to first diagonal--> 2020 left heart cath with right coronary artery was 60% in-stent stenosis that was decided to be treated with medical management -Aortic valve replacement in 2004 with [facility] mechanical aortic valve (had anatomic bicuspid aortic valve)--> Dr. Philippe -Hold metoprolol due to the above -Hold aspirin -Continue home atorvastatin -Hold Coumadin -Will need heparin drip once INR is 1.5 or less -Continue home Lasix Infrarenal aortic aneurysm -Measured at 4.3 cm -Will need outpatient vascular follow-up to monitor but no acute needs at this time History of asthma/COPD stage I -Follows with pulmonary medicine -Vapes -Continue home inhalers -Continue home Singulair JAMES -Patient is noncompliant with CPAP Restless leg syndrome -Continue home treatment GERD/history of peptic ulcer disease/history of esophageal obstruction due to food impaction -Previous esophageal stenosis had been dilated -Continue Protonix 40 mg twice daily Dementia-suspect vascular with previous stroke -Hold donepezil and Namenda as they both can cause bradycardia History of stroke -Aspirin on hold due to possible need for pacemaker placement -PT/OT consultation History of OA -Will schedule Tylenol as the patient is sore after his fall -As needed oxycodone DDD of the lumbar spine -History of lumbar fusion in 2014 -Pain management as above History of bipolar disorder -Continue home risperidone -Continue home trazodone -Continue on fluoxetine -Continue home BuSpar -Continue home Cogentin Obesity -BMI 31.8 -Recommend weight loss next-complicates treatment, prognosis, outcomes Marijuana abuse -Recommend cessation DVT prophylaxis -Patient's INR is still supratherapeutic at 3.6 -Continue to monitor CODE STATUS -Full code but will need to verify with family once available Charges/Coding Visit Charges Inpatient E&M: 91572 Subs Hosp L2
--- NOTE | 2023-12-02 14:30 | PN.CARD_ITS ---
Subjective Subjective No symptoms reported today Objective Data Vital Signs: Vital Signs Temp Pulse Resp BP Pulse Ox O2 Del Method 97.2 F L 63 18 119/79 95 Room Air 12/02/23 08:48 12/02/23 13:55 12/02/23 13:55 12/02/23 08:48 12/02/23 08:48 12/02/23 08:48 Oxygen Delivery Method Room Air Weight: 236 lb 8.896 oz Body Mass Index (BMI) 31.1 Intake & Output: Intake and Output for Last 24 Hours 11/30/23 12/01/23 12/02/23 23:59 23:59 23:59 Intake Total 0 / 0 2552.17 / 2552.17 700 / 700 Output Total 2675 / 2675 Balance 0 / 0 -122.83 / -122.83 700 / 700 Lab / Micro Data 12/02/23 05:17 12/02/23 05:17 Labs: Laboratory Results - last 24 hr 12/02/23 05:17: WBC 4.8, RBC 3.80 L, Hgb 11.6 L, Hct 36.9 L, MCV 97.1 H, MCH 30.5, MCHC 31.4 L, RDW Std Deviation 52.2 H, RDW Coeff of Adalberto 14.6, Plt Count 192, MPV 8.8, Immature Gran % (Auto) 0.400, Neut % (Auto) 72.2 H, Lymph % (Auto) 13.2 L, Norton % (Auto) 14.2 H, Eos % (Auto) 0.0, Baso % (Auto) 0.0, Absolute Neuts (auto) 3.5, Absolute Lymphs (auto) 0.63 L, Nucleated RBC % 0, PT 35.8 H, INR 3.6, Sodium 138, Potassium 3.7, Chloride 106, Carbon Dioxide 28.0, Anion Gap 4 L, BUN 6 L, Creatinine 0.78, Estim Creat Clear Calc 116.73, Est GFR (MDRD) Af Amer 129, Est GFR (MDRD) Non-Af 106, BUN/Creatinine Ratio 7.7 L, Glucose 111 H, Calcium 8.1 L Cardiology Labs/Tests 12/02/23 05:17: WBC 4.8, RBC 3.80 L, Hgb 11.6 L, Hct 36.9 L, MCV 97.1 H, MCH 30.5, MCHC 31.4 L, Plt Count 192, MPV 8.8, Immature Gran % (Auto) 0.400, Neut % (Auto) 72.2 H, Lymph % (Auto) 13.2 L, Norton % (Auto) 14.2 H, Eos % (Auto) 0.0, Baso % (Auto) 0.0, Absolute Neuts (auto) 3.5, Nucleated RBC % 0, PT 35.8 H, INR 3.6, Sodium 138, Potassium 3.7, Chloride 106, Carbon Dioxide 28.0, Anion Gap 4 L , BUN 6 L, Creatinine 0.78, Est GFR (MDRD) Af Amer 129, Est GFR (MDRD) Non-Af 106, BUN/Creatinine Ratio 7.7 L, Glucose 111 H, Calcium 8.1 L Rhythm: EKG: ECHO: Stress Test: Cardiac Cath: PCI: CT Surgery: Holter monitor: EPS: PPM: CXR: Chest CT Scan: Physical Exam Cardio Cardio Narrative: Cardiac rhythm has a Mobitz type II AV block Cardiac exam normal aortic valve prosthetic sounds Chest exam clear to auscultation bilateral Assessment & Plan Assessment/Plan (1) History of coronary artery stent placement: (2) H/O coronary artery bypass surgery: (3) History of mechanical aortic valve replacement: (4) Mobitz type 2 second degree atrioventricular block: (5) Syncope and collapse: PLAN: Plan 67-year-old patient Presented with syncope and collapse As abnormal phototypesetting equipment monitor and EKG which revealed evidence of Mobitz type II AV block Bradycardia AV blocking medication discontinued Patient has extensive cardiac history With history of coronary arthrosclerosis s/p CABG With subsequent PCI and stent of mid RCA, SVG graft to diagonal and balloon angioplasty to the insertion sites of MEDINA to LAD. In this evaluation his echo showed EF in the range of 45-50% Patient has a history of a bicuspid aortic valve with the AVR which is normal function aortic valve mechanical prosthesis/[facility] Patient had a history of paroxysmal A-fib and history of stroke. History of hypertension hyperlipidemia Cardiac care plan recommendations; Today's INR is still elevated 3.6 Will continue to monitor INR daily Plan of permanent pacemaker discussed with the patient. He understands and questions answered Will plan for heparin infusion once INR is less than 1.5. I will defer to the medical team for management of other medical problems and will continue to monitor and follow-up this patient clinically. Abisai Ko MD,FACC,[facility] [place]
[2023-12-02] MEDS: Atorvastatin Calcium 10 MG Tablet PO (21:21)
[2023-12-02] MEDS: MELATONIN 3 MG TABLET PO (21:21)
[2023-12-02] MEDS: Montelukast 10 MG Tablet PO (21:21)
[2023-12-02] MEDS: traZODone 50 MG Tablet PO (21:21)
[2023-12-03] VITALS (12 sets, daily range): BP systolic 94–168; BP diastolic 60–98; PULSE 67–116; RESP 15–28; TEMP 36.1–37; O2SAT 91–95; BMI 31.4
[2023-12-03 03:40] LABS: Hematocrit 34.1 % (40-54); Hemoglobin 11.4 g/dL (13.0-16.5); Mean Corp Hgb Conc 33.4 g/dL (32-36); Mean Corpuscular Hgb 31.5 pg (27.0-32.0); Mean Corpuscular Volume 94.2 fL (80-94); Mean Platelet Vol. 8.8 fl (6.2-12.0); Platelet Count 192 K/mm3 (150-450); RBC Distribution Width CV 14.3 % (11.6-14.6); Red Blood Count 3.62 M/mm3 (4.6-6.2); White Blood Count 11.7 K/mm3 (4.4-11.0)
[2023-12-03 03:54] LABS: Anion Gap 5 (5-15); BUN 9 mg/dL (7-18); BUN/Creat Ratio 9.4 RATIO (10-20); Calcium,Total 7.9 mg/dL (8.5-10.1); Chloride 103 mmol/L (98-107); Creatinine, Serum 0.95 mg/dL (0.70-1.30); EST Glomerular Filtration Rate 84 mL/min (>60); Est Glom Filt Rate - Afr Amer 101 mL/min (>60); Estimated Creatinine Clearance 99.21 ml/min; Glucose 111 mg/dL (74-106); Potassium 3.7 mmol/L (3.5-5.1); Sodium Level 135 mmol/L (136-145)
[2023-12-03 04:57] LABS: International Normalized Ratio 1.8; Prothrombin Time (Protime)PT. 20.5 SECONDS (11.7-14.9)
[2023-12-03] MEDS: oxyCODONE 5 MG Tablet PO ×3 (05:43→17:50)
[2023-12-03] MEDS: busPIRone 15 MG TABLET PO ×3 (05:43→21:14)
[2023-12-03] MEDS: Benztropine Mesylate 0.5 MG TABLET 1 MG PO ×3 (05:43→21:15)
[2023-12-03] MEDS: Acetaminophen 500 MG Tablet 1000 MG PO ×3 (05:47→21:15)
--- NOTE | 2023-12-03 05:55 | EKG12_ITS ---
Test Reason : AM EKG Blood Pressure : / mmHG Vent. Rate : 088 BPM Atrial Rate : 088 BPM P-R Int : 224 ms QRS Dur : 172 ms QT Int : 444 ms P-R-T Axes : 038 023 121 degrees QTc Int : 537 ms Sinus rhythm with 1st degree A-V block Left bundle branch block Abnormal ECG When compared with ECG of 30-NOV-2023 22:28, MANUAL COMPARISON REQUIRED, DATA IS UNCONFIRMED Confirmed by Lucius Briceño ([id number]), television news video editor LLOYD BATISTA ([id number]) on 12/03/2023 12:59:01 PM Referred By: Confirmed By:Lucius Briceño
[2023-12-03] MEDS: Budesonide Respules 0.5 MG/2 ML AMPUL.NEB. INHALATION ×2 (07:01→19:15)
[2023-12-03] MEDS: Albuterol 2.5 MG/3 ML VIAL.NEB. INHALATION ×2 (07:01→19:15)
--- NOTE | 2023-12-03 07:56 | PCM.PN.CARD ---
Subjective Subjective The patient is resting comfortably in the bed this morning. He denies any syncope since yesterday. The nursing staff does note that he is unsteady on his feet when they try to get him up to the bedside. The patient's telemetry shows a left bundle branch block with occasional dropped P waves his heart rate is 88 bpm. His INR was 1.8 this morning. His EKG revealed normal sinus rhythm at 88 bpm left bundle branch block normal sinus rhythm with a first-degree AV block. The patient's status post AVR several years ago with mechanical prosthesis he has been on Coumadin long-term. Objective Data Vital Signs: Vital Signs Temp Pulse Resp BP Pulse Ox O2 Del Method 98.6 F 93 18 94/60 94 Room Air 12/03/23 02:58 12/03/23 02:58 12/03/23 02:58 12/03/23 02:58 12/03/23 02:58 12/03/23 02:58 Oxygen Delivery Method Room Air Weight: 238 lb 3.2 oz Body Mass Index (BMI) 31.4 Intake & Output: Intake and Output for Last 24 Hours 12/01/23 12/02/23 12/03/23 23:59 23:59 23:59 Intake Total 2552.17 / 2552.17 1900 / 2640 740 / 740 Output Total 2675 / 2675 1000 / 2450 1450 / 1450 Balance -122.83 / -122.83 900 / 190 -710 / -710 Lab / Micro Data Attestation: I reviewed the patient's lab results. 12/03/23 03:10 12/03/23 03:10 Labs: Laboratory Results - last 24 hr 12/02/23 05:17: PT 35.8 H, INR 3.6 12/03/23 03:10: WBC 11.7 H, RBC 3.62 L, Hgb 11.4 L, Hct 34.1 L, MCV 94.2 H, MCH 31.5, MCHC 33.4 D, RDW Std Deviation 49.0 H, RDW Coeff of Adalberto 14.3, Plt Count 192, MPV 8.8, PT 20.5 H, INR 1.8, Sodium 135 L, Potassium 3.7, Chloride 103, Carbon Dioxide 27.0, Anion Gap 5, BUN 9, Creatinine 0.95, Estim Creat Clear Calc 99.21, Est GFR (MDRD) Af Amer 101, Est GFR (MDRD) Non-Af 84, BUN/Creatinine Ratio 9.4 L, Glucose 111 H, Calcium 7.9 L Rhythm Strip Rhythm Strip: Sinus Rhythm Rate: 88 Ectopy: - (Noted second-degree AV block.) Cardiology Labs/Tests 12/02/23 05:17: PT 35.8 H, INR 3.6 12/03/23 03:10: WBC 11.7 H, RBC 3.62 L, Hgb 11.4 L, Hct 34.1 L, MCV 94.2 H, MCH 31.5, MCHC 33.4 D, Plt Count 192, MPV 8.8, PT 20.5 H, INR 1.8, Sodium 135 L, Potassium 3.7, Chloride 103, Carbon Dioxide 27.0, Anion Gap 5, BUN 9, Creatinine 0.95, Est GFR (MDRD) Af Amer 101, Est GFR (MDRD) Non-Af 84, BUN/Creatinine Ratio 9.4 L, Glucose 111 H, Calcium 7.9 L Rhythm: EKG: ECHO: Stress Test: Cardiac Cath: PCI: CT Surgery: Holter monitor: EPS: PPM: CXR: Chest CT Scan: Physical Exam Const oriented x3 Orientation / Consciousness: awake HEENT normocephalic Eyes EOMs intact bilaterally Neck no JVD Chest inspection of chest normal Chest: midline sternotomy incision Resp normal respiratory effort and clear to auscultation bilaterally Cardio regular rate, regular rhythm, S1 normal heart sound, no rub and no gallops Heart Sounds: murmur systolic II/ left sternal border and right sternal border and prosthetic sounds crisp prosthetic S2 GI non-tender Skin no rashes or lesions noted Skin Narrative: Tattoos noted. Neuro Neuro Narrative: Alert and oriented x 3 Psych mental status grossly normal Assessment & Plan Assessment/Plan (1) Syncope and collapse: PLAN: Patient presented with syncope and collapse with an EKG consistent with second-degree AV block Mobitz type II. The patient has an underlying left bundle branch block with first-degree AV block on his EKG. He has a normal sinus rhythm this morning occasionally has dropped P waves. The patient has not had a recurrence of the syncope since he has been in the hospital. (2) Mobitz type 2 second degree atrioventricular block: PLAN: Underlying rhythm is normal sinus with first-degree AV block and a left bundle branch block. EKG documented as well as rhythm strips second-degree AV block and 2-1 conduction. The patient was symptomatic on admission. (3) H/O mechanical aortic valve replacement: PLAN: 2004 the patient had an at [facility] aortic valve replacement for aortic insufficiency related to a bicuspid aortic valve. (4) intermediate current use of anticoagulant: PLAN: Target INR is 2?3. His INR is 1.8 this morning after the Coumadin has been held. Given the [facility] prosthesis in the aortic position we will not start heparin as a bridge. The patient will most likely undergo permanent pacemaker implantation tomorrow morning. The patient was instructed to remain n.p.o. after midnight tonight. Dr. Arvizu will be implanting the pacemaker. PLAN: Plan 1. Recheck INR in AM. 2. Tentative plan for permanent pacemaker implantation tomorrow. Charges/Coding Visit Charges Inpatient E&M: 73027 Subs Hosp L2
[2023-12-03] MEDS: Dextrose 5%-Water (1000mL Bag) 1,000 ML 75 ML IV (08:54)
[2023-12-03 09:45] LABS: Vitamin B12 433 pg/mL (211-911)
[2023-12-03 11:11] LABS: International Normalized Ratio 1.5; Prothrombin Time (Protime)PT. 18.2 SECONDS (11.7-14.9)
[2023-12-03] MEDS: 0.9% Normal Saline (1000mL) 1,000 ML 15 ML IV (11:58)
--- NOTE | 2023-12-03 12:03 | NURSING ---
Report called to Anup SANTILLAN label fuser tender
--- NOTE | 2023-12-03 14:43 | EKG12_ITS ---
Test Reason : VT Blood Pressure : / mmHG Vent. Rate : 108 BPM Atrial Rate : 075 BPM P-R Int : 000 ms QRS Dur : 172 ms QT Int : 430 ms P-R-T Axes : 000 -75 084 degrees QTc Int : 576 ms Ventricular-paced rhythm with premature ventricular or aberrantly conducted complexes Abnormal ECG When compared with ECG of 03-DEC-2023 21:57, MANUAL COMPARISON REQUIRED, DATA IS UNCONFIRMED Confirmed by Lucius Briceño ([id number]), editor at large [employer] BATISTA ([id number]) on 12/04/2023 2:10:54 PM Referred By: Confirmed By:Lucius Briceño
--- NOTE | 2023-12-03 14:44 | PN_ITS ---
Subjective Subjective Patient seen and examined. He had no complaints. He had an uneventful night and review of systems otherwise negative. He is for pacemaker insertion today. Objective Data Objective Data Vital Signs: Vital Signs Temp Pulse Resp BP Pulse Ox O2 Del Method 97 F L 75 93 H 168/98 H 20 Room Air 12/03/23 14:15 12/03/23 14:29 12/03/23 14:29 12/03/23 14:29 12/03/23 14:29 12/03/23 14:29 Oxygen Delivery Method Room Air Weight: 238 lb 3.2 oz Body Mass Index (BMI) 31.4 Intake & Output: Intake and Output for Last 24 Hours 12/01/23 12/02/23 12/03/23 23:59 23:59 23:59 Intake Total 2552.17 / 2552.17 1900 / 2640 970 / 970 Output Total 2675 / 2675 1000 / 2450 2100 / 2100 Balance -122.83 / -122.83 900 / 190 -1130 / -1130 Lab / Micro Data 12/03/23 03:10 12/03/23 03:10 Labs: Laboratory Results - last 24 hr 12/01/23 06:30: Vitamin B12 433 12/03/23 03:10: WBC 11.7 H, RBC 3.62 L, Hgb 11.4 L, Hct 34.1 L, MCV 94.2 H, MCH 31.5, MCHC 33.4 D, RDW Std Deviation 49.0 H, RDW Coeff of Adalberto 14.3, Plt Count 192, MPV 8.8, PT 20.5 H, INR 1.8, Sodium 135 L, Potassium 3.7, Chloride 103, Carbon Dioxide 27.0, Anion Gap 5, BUN 9, Creatinine 0.95, Estim Creat Clear Calc 99.21, Est GFR (MDRD) Af Amer 101, Est GFR (MDRD) Non-Af 84, BUN/Creatinine Ratio 9.4 L, Glucose 111 H, Calcium 7.9 L 12/03/23 10:49: PT 18.2 H, INR 1.5 Rhythm Strip Rhythm Strip: Sinus Rhythm Rate: 88 Ectopy: - (Noted second-degree AV block.) Physical Exam Const alert, oriented x3, no apparent distress and well nourished General Appearance: cooperative HEENT normocephalic, head/scalp atraumatic, moist oral mucous membranes and oropharynx normal Eyes PERRL and EOMs intact bilaterally Neck no lymphadenopathy and supple Lymph Lymphatic: no lymphadenopathy noted and no lymphedema noted Resp normal respiratory effort, normal air movement and clear to auscultation bilaterally Cardio regular rate, regular rhythm, S1 normal heart sound, S2 normal heart sound and no murmurs GI normal to inspection, nondistended, normoactive bowel sounds, soft to palpation, non-tender and non-distended Extremity normal capillary refill, no clubbing, cyanosis or edema and no calf tenderness General Extremity: no tenderness to palpation of joints or extremities Skin General Skin Exam: no breakdown Neuro CN's II-XII intact bilaterally, no focal motor deficits, no sensory deficits noted and deep tendon reflexes 2+ bilaterally Motor Exam: strength 5/5 throughout and general weakness Psych thought process normal, cooperative and affect normal Appearance: appropriate Assessment & Plan Assessment/Plan (1) Syncope and collapse: (2) Mobitz type 2 second degree atrioventricular block: PLAN: Plan #Syncope due to Mobitz type II heart block * INR down to 1.8 today. Namenda and donepezil discontinued as they can cause bradycardia. * 2D echo showed EF of 45 to 50% with normal aortic valve mechanical prosthesis. TSH is within normal limits. * Had pacemaker insertion today. Cardiology on board. #Chronic microcytic anemia: Hemoglobin at baseline and stable. Will monitor. #Supratherapeutic INR: Resolved. #CAD: S/p CABG in 2019. Metoprolol on hold. Aspirin also held. On atorvastatin. #Hyperlipidemia: On statin #History of A-fib: Metoprolol on hold due to bradycardia. Pacemaker insertion today. Coumadin on hold #In for renal aortic aneurysm: Is 4.3 cm in diameter. Will need to follow-up with vascular surgeon on outpatient basis. #History of asthma and COPD: Not in exacerbation. On breathing treatments bronchodilators. Patient vapes. Counseled to quit. #JAMES: On CPAP nightly but not very compliant with this. #Restless leg syndrome: On Requip #History of GERD: On PPI #History of bipolar disorder: On Risperdal, trazodone, fluoxetine and BuSpar as well as Cogentin #History of dementia: Donepezil and Namenda on hold as they can cause bradycardia DVT prophylaxis: SCDs Charges/Coding Visit Charges Inpatient E&M: 31987 Subs Hosp L2
--- NOTE | 2023-12-03 14:55 | EKG12_ITS ---
Test Reason : Blood Pressure : / mmHG Vent. Rate : 072 BPM Atrial Rate : 072 BPM P-R Int : 204 ms QRS Dur : 188 ms QT Int : 492 ms P-R-T Axes : 053 -05 105 degrees QTc Int : 538 ms Atrial-sensed ventricular-paced rhythm Abnormal ECG Confirmed by Lucius Briceño ([id number]), newspaper managing editor LLOYD BATISTA ([id number]) on 12/04/2023 2:13:10 PM Referred By: FRANCISCO Confirmed By:Lucius Briceño
[2023-12-03] MEDS: Atorvastatin Calcium 10 MG Tablet PO (21:14)
[2023-12-03] MEDS: Pantoprazole Sodium 40 MG Tablet PO (21:15)
[2023-12-03] MEDS: Senna/Docusate Sodium 1 Tablet 2 TABLET PO (21:15)
[2023-12-03] MEDS: traZODone 50 MG Tablet PO (21:15)
[2023-12-03] MEDS: RisperiDONE 2 MG Tablet 4 MG PO (21:16)
[2023-12-03] MEDS: Montelukast 10 MG Tablet PO (21:16)
--- NOTE | 2023-12-03 22:00 | EKG12_ITS ---
Test Reason : VT Blood Pressure : / mmHG Vent. Rate : 107 BPM Atrial Rate : 117 BPM P-R Int : 000 ms QRS Dur : 168 ms QT Int : 366 ms P-R-T Axes : 000 -75 088 degrees QTc Int : 488 ms Ventricular-paced rhythm Abnormal ECG When compared with ECG of 03-DEC-2023 14:55, MANUAL COMPARISON REQUIRED, DATA IS UNCONFIRMED Confirmed by Lucius Briceño ([id number]), videotape editor LLOYD BATISTA ([id number]) on 12/04/2023 2:11:07 PM Referred By: Confirmed By:Lucius Briceño
[2023-12-03] MEDS: Metoprolol Tartrate 50 MG Tablet PO (22:32)
[2023-12-04] VITALS: BP 106/61; PULSE 105; RESP 17; TEMP 36.8; O2SAT 93
[2023-12-04 02:19] VITALS: BMI 31.2
[2023-12-04] MEDS: oxyCODONE 5 MG Tablet PO ×2 (02:46→09:44)
[2023-12-04 03:30] VITALS: BP 119/73; PULSE 83; RESP 18; TEMP 36.9; O2SAT 92
[2023-12-04] MEDS: busPIRone 15 MG TABLET PO (05:29)
[2023-12-04] MEDS: Benztropine Mesylate 0.5 MG TABLET 1 MG PO (05:29)
[2023-12-04] MEDS: Acetaminophen 500 MG Tablet 1000 MG PO ×2 (05:29→14:53)
--- NOTE | 2023-12-04 05:55 | RAD_ITS ---
EXAM: XR CHEST, 3 VIEWS CLINICAL INDICATION: Post permanant ICD/Pacemaker -- inspiration/expiration. Arms Down. Wet read to MD Post permanant ICD/Pacemaker -- inspiration/expiration. Arms Down. Wet read to MD TECHNIQUE: Frontal, lateral and one additional view of the chest. COMPARISON: Chest x-ray 11/30/2023. FINDINGS: LUNGS AND PLEURAL SPACES: There atelectasis and/or small infiltrate in the left lower lobe. No pneumothorax. No effusion. HEART: Unremarkable. Cardiac silhouette not enlarged. MEDIASTINUM: Central airways and mediastinal contour are unremarkable. BONES/JOINTS: There are sternotomy wires. No acute fracture. There is a right shoulder prosthesis. SOFT TISSUES: Unremarkable. TUBES, LINES AND DEVICES: There is an atrioventricular pacemaker. RAD/Chest 3 View IMPRESSION: 1. Atelectasis and/or small infiltrate in the left lower lobe. 2. No visualized pneumothorax. 3. Status post placement of permanent AV pacemaker. Electronically Signed: Wei Nieto MD at 5:57 EDT ,
[2023-12-04 07:03] VITALS: PULSE 112; RESP 24; O2SAT 94
[2023-12-04] MEDS: Albuterol 2.5 MG/3 ML VIAL.NEB. INHALATION ×2 (07:03→13:02)
[2023-12-04] MEDS: Budesonide Respules 0.5 MG/2 ML AMPUL.NEB. INHALATION (07:03)
[2023-12-04 07:26] LABS: Basophil# 0.01 X10^3/uL; Basophil% 0.1 % (0-1); Hematocrit 35.6 % (40-54); Hemoglobin 11.5 g/dL (13.0-16.5); Lymphocyte % 14.1 % (19-41); Mean Corp Hgb Conc 32.3 g/dL (32-36); Mean Corpuscular Hgb 30.7 pg (27.0-32.0); Mean Corpuscular Volume 95.2 fL (80-94); Mean Platelet Vol. 9.1 fl (6.2-12.0); Monocyte# 1.24 X10^3/uL; Monocyte% 14.6 % (0-10); NRBC Flagged by Analyzer 0 % (0-5); Neutrophil # 5.99 X10^3/uL (2.7-7.7); Neutrophil % 70.6 % (47-70); Platelet Count 188 K/mm3 (150-450); RBC Distribution Width CV 14.6 % (11.6-14.6); RBC Distribution Width SD 50.8 fl (35.1-43.9); Red Blood Count 3.74 M/mm3 (4.6-6.2); White Blood Count 8.5 K/mm3 (4.4-11.0)
--- NOTE | 2023-12-04 07:45 | PCM.PN.CARD ---
Subjective Subjective Patient is resting comfortably in bed utilizing an aerosol treatment. Patient denies any pains around the pacer site denies any bleeding and his bandage is clean and dry. The patient had an episode of SVT that was tracked by the pacer to 160bpm last p.m. He was treated with metoprolol and this morning is in sinus rhythm with ventricular tracking alternating with AV paced rhythms. Heart rate is 60 bpm on average. Blood pressure is tolerating the metoprolol. Objective Data Vital Signs: Vital Signs Temp Pulse Resp BP Pulse Ox O2 Del Method 98.4 F 83 18 119/73 92 Room Air 12/04/23 03:30 12/04/23 03:30 12/04/23 03:30 12/04/23 03:30 12/04/23 03:30 12/04/23 03:42 Oxygen Delivery Method Room Air Weight: 236 lb 12.423 oz Body Mass Index (BMI) 31.2 Intake & Output: Intake and Output for Last 24 Hours 12/02/23 12/03/23 12/04/23 23:59 23:59 23:59 Intake Total 1900 / 2640 1584.25 / 1584.25 Output Total 1000 / 2450 2350 / 2350 300 / 300 Balance 900 / 190 -765.75 / -765.75 -300 / -300 Lab / Micro Data Attestation: I reviewed the patient's lab results. 12/04/23 06:50 12/03/23 03:10 Labs: Laboratory Results - last 24 hr 12/01/23 06:30: Vitamin B12 433 12/03/23 10:49: PT 18.2 H, INR 1.5 12/04/23 06:50: WBC 8.5, RBC 3.74 L, Hgb 11.5 L, Hct 35.6 L, MCV 95.2 H, MCH 30.7, MCHC 32.3, RDW Std Deviation 50.8 H, RDW Coeff of Adalberto 14.6, Plt Count 188, MPV 9.1, Immature Gran % (Auto) 0.600, Neut % (Auto) 70.6 H, Lymph % (Auto) 14.1 L, Titus % (Auto) 14.6 H, Eos % (Auto) 0.0, Baso % (Auto) 0.1, Absolute Neuts (auto) 6.0, Absolute Lymphs (auto) 1.20, Nucleated RBC % 0 Rhythm Strip Rhythm Strip: Sinus Rhythm Rate: 60 Ectopy: - (AV paced and atrial track V paced rhythms) Cardiology Labs/Tests 12/03/23 10:49: PT 18.2 H, INR 1.5 12/04/23 06:50: WBC 8.5, RBC 3.74 L, Hgb 11.5 L, Hct 35.6 L, MCV 95.2 H, MCH 30.7, MCHC 32.3, Plt Count 188, MPV 9.1, Immature Gran % (Auto) 0.600, Neut % (Auto) 70.6 H, Lymph % (Auto) 14.1 L, Titus % (Auto) 14.6 H, Eos % (Auto) 0.0, Baso % (Auto) 0.1, Absolute Neuts (auto) 6.0, Nucleated RBC % 0 Rhythm: EKG: ECHO: Stress Test: Cardiac Cath: PCI: CT Surgery: Holter monitor: EPS: PPM: CXR: Chest CT Scan: Radiography Diagnostic Testing: Radiology Impression Chest X-Ray 12/04/23 05:55 IMPRESSION: 1. Atelectasis and/or small infiltrate in the left lower lobe. 2. No visualized pneumothorax. 3. Status post placement of permanent AV pacemaker. Electronically Signed: Wei Nieto MD at 5:57 EDT Reading Location ID and State: [facility] / MD , Service support , Physical Exam Const oriented x3 HEENT normocephalic Eyes EOMs intact bilaterally Neck no JVD Chest Chest Narrative: Left pectoral incision bandage clean and dry. No obvious pocket hematoma by palpation. Chest: left pectoral incision Resp normal respiratory effort Auscultation: rhonchi right upper Cardio regular rate, regular rhythm, S1 normal heart sound, S2 normal heart sound, no murmurs, no rub and no gallops GI soft to palpation Extremity normal to inspection General Extremity: Negative for edema Skin no rashes or lesions noted Skin Narrative: Extensive tattoos Neuro Neuro Narrative: Alert and oriented x 3 Psych mental status grossly normal Assessment & Plan Assessment/Plan (1) Syncope and collapse: PLAN: The patient originally presented with secondary AV block and an underlying left bundle branch block. He underwent successful DDD pacer implantation on December 02 (2) Current use of mcc anticoagulation: PLAN: Coumadin has been held for his pacer implant. Will restart Coumadin today at his routine daily dose. Will reevaluate INR on December 06. (3) H/O mechanical aortic valve replacement: PLAN: Status post [facility] aortic valve prosthesis. Will reinstitute Coumadin at his daily dose with no loading dose and no bridge starting today. (4) Atherosclerosis of coronary artery of [place] heart without angina pectoris: QUALIFIERS: Coronary Disease-Associated Artery/Lesion type: [place] artery Qualified Code(s): I25.10 - Atherosclerotic heart disease of [place] coronary artery without angina pectoris PLAN: Continue secondary risk factor modifications and current medical therapy. (5) SVT (supraventricular tachycardia): PLAN: Supraventricular tachycardia occurred last evening. This may be pacemaker mediated tachycardia. The patient will be evaluated and adjustments made to the settings as indicated. He should continue on metoprolol 50 mg twice daily. (6) Presence of permanent cardiac pacemaker: PLAN: DDD pacemaker placed December 02. The patient will follow-up in the [place] device [facility] he will be evaluated today prior to discharge. Chest x-ray done this morning showed the no evidence of a pneumothorax. PLAN: Plan 1. Evaluate pacer with interrogation today. Will follow-up in the [place] [facility]. 2. Continue metoprolol 50 mg twice daily to control the SVT. 3. Reinstitute Coumadin today at the standard daily dose. 4. After up ad wood. in the hospital, ambulating without assistance, and pacer interrogation complete, the patient should be able to discharge to home later today. Charges/Coding Visit Charges Inpatient E&M: [address] [facility] L3
[2023-12-04 08:04] LABS: Anion Gap 5 (5-15); BUN 11 mg/dL (7-18); BUN/Creat Ratio 13.7 RATIO (10-20); Calcium,Total 8.2 mg/dL (8.5-10.1); Chloride 105 mmol/L (98-107); EST Glomerular Filtration Rate 102 mL/min (>60); Est Glom Filt Rate - Afr Amer 123 mL/min (>60); Estimated Creatinine Clearance 116.78 ml/min; Glucose 109 mg/dL (74-106); Potassium 3.6 mmol/L (3.5-5.1); Sodium Level 135 mmol/L (136-145)
--- NOTE | 2023-12-04 08:44 | DCINST_ITS ---
Discharge Instructions Diet Discharge Diet: No restrictions (as you feel able. No excessive stretching. No lifting your arm over your head (keep elbow below shoulder level) until seen for your pacemaker check. Do not lift your elbow away from your side until you are seen for your first visit. Keep the arm sling on if it helps remind you not to lift your arm.) Activity Discharge Activity: May Not Drive May shower in (days): 2 Additional Activity Instructions:: May shower or bathe on [day 3]. Do not scrub the incision or soak in the tub. Just wash with soap and let the water run over the incision. Gently pat dry with towel. Medications: Take your pain medication as directed. Refer to your discharge instruction sheet for a list of medications you are to take. Dressing / Incision Call your doctor if your incision/area has: Continuous Slow Oozing, Sudden Increased Bleeding, Increased Pain/ Swelling, Increased Redness, Foul Smelling Discharge and Swelling at the incision site Call your doctor if you observe: Fever of 101 or Higher, Shortness of breath, Dizziness, Fainting spells, Swelling in the ankles, Chest pain, Prolonged hiccupping and Increased palpitations (irregular heartbeat) Suture Line Care: Avoid Pulling/Pushing and Avoid Pinching/Bending Cleanse incision/area with: Keep Dressing Clean & Dry Additional Dressing/Incision Instructions:: When dressing is removed, wash and dry incision. Keep covered with a light bandage if it is rubbing against your clothing. Do not cover the incision with an airtight bandage. Change the bandage daily. Do not remove steri strips. The strips will fall off on their own. Follow Up Care Please Follow Up With: Oscar Arvizu MD When: Pacer follow-up on December 13 at 11 AM in the pacemaker clinic. Test Results: Test results from this visit will be discussed in further detail at your follow- up appointment, if applicable. Discharge Plan Admission Admit Date/Time: 12/01/23 00:29 Attending Provider: Magali Rich Primary Care Provider: Bartolo Mitchell Consulting Providers: Liliana Quiñonez; Chika Tran; Vanesa Brown; Kosta Knox; Patricia Berry; Oscar Arvizu; Dany Lamb; Lex Monique; Abisai Ko; Lucius Briceño; Perez Patrick; Prema Cooper; Marco A Cross; Stan Yousif; William Wheat; Karlo Pantoja; Conor Cagle [employer]PA[employer]; Liliana Rodriguez [employer] REPAIRER; Kayleigh Boykin; Fady Wesley; Maria Luisa Sunshine Discharge Orders/Prescriptions Prescriptions: No Action buspirone 10 mg tablet 15 mg PO TID fluoxetine 40 mg capsule 20 mg PO DAILY risperidone 4 mg tablet 4 mg PO BID Patient Comments: PT DOES NOT KNOW WHY HE TAKES IT. albuterol sulfate 2.5 mg /3 mL (0.083 %) solution for nebulization 2.5 mg INHALATION Q4H PRN (Reason: Sob &/Or Wheezing) Qty: 180 3RF Fasenra 30 mg/mL syringe 30 mg SC Q8W Qty: 1 11RF doxycycline monohydrate 100 mg capsule 100 mg PO BID Qty: 14 0RF benztropine 2 MG tablet 1 mg PO TID Patient Comments: prevent side effects of medications donepezil [Aricept] 10 MG tablet 10 mg PO QHS pantoprazole 40 MG tablet 40 mg PO BID cholecalciferol (vitamin D3) 50 MCG tablet 50 mcg PO DAILY memantine [Namenda] 5 mg tablet 10 mg PO BID trazodone 50 mg Tablet 50 mg PO QHS aspirin 81 mg Tablet 81 mg PO DAILY furosemide [Lasix] 40 mg Tablet 40 mg PO DAILY montelukast [Singulair] 10 mg tablet 10 mg PO QHS sennosides-docusate sodium [Stool Softener-Stimulant Laxat] 8.6-50 mg Tablet 2 tab PO BID Qty: 30 0RF Rx Instructions: Take until first bowel movement, then as needed metoprolol tartrate [Lopressor] 50 mg tablet 50 mg PO BID Qty: 180 3RF warfarin 5 mg tablet 5 mg PO .COMPLEX Qty: 90 3RF Protocol: Dose Management Condition: Sunday Dose/Route: 6 mg Instruction: 1 x 6 mg tablet Condition: Sunday Dose/Route: 6 mg Instruction: 1 x 6 mg tablet Condition: Sunday Dose/Route: 7.5 mg Instruction: 1.5 x 5 mg tablets Condition: Sunday Dose/Route: 6 mg Instruction: 1 x 6 mg tablet Condition: Dose/Route: 6 mg Instruction: 1 x 6 mg tablet Condition: Sunday Dose/Route: 6 mg Instruction: 1 x 6 mg tablet Condition: Sunday Dose/Route: 6 mg Instruction: 1 x 6 mg tablet Protocol Text: Adjustment Start Date: Sunday08/17/23 INR Value: 2.7 INR Date: 08/17/23 Recheck Date: 09/16/23 Rx Instructions: 5 mg PO Take 5 mg daily or as directed for dose changes. warfarin 1 mg tablet 1 mg PO .COMPLEX Qty: 45 3RF Protocol: Dose Management Condition: Sunday Dose/Route: 6 mg Instruction: 1 x 6 mg tablet Condition: Sunday Dose/Route: 6 mg Instruction: 1 x 6 mg tablet Condition: Sunday Dose/Route: 7.5 mg Instruction: 1.5 x 5 mg tablets Condition: Sunday Dose/Route: 6 mg Instruction: 1 x 6 mg tablet Condition: Dose/Route: 6 mg Instruction: 1 x 6 mg tablet Condition: Sunday Dose/Route: 6 mg Instruction: 1 x 6 mg tablet Condition: Sunday Dose/Route: 6 mg Instruction: 1 x 6 mg tablet Protocol Text: Adjustment Start Date: Sunday08/17/23 INR Value: 2.7 INR Date: 08/17/23 Recheck Date: 09/16/23 Patient Comments: PER , TAKES 6MG EVERY DAY EXCEPT SUNDAY, ON SUNDAY HE TAKES 7.5MG Rx Instructions: 1 mg PO take 1.5 tablets with a 6 mg tablet on Tuesdays, or as directed; warfarin 6 mg tablet 6 mg PO .COMPLEX Qty: 90 3RF Protocol: Dose Management Condition: Sunday Dose/Route: 6 mg Instruction: 1 x 6 mg tablet Condition: Sunday Dose/Route: 6 mg Instruction: 1 x 6 mg tablet Condition: Sunday Dose/Route: 7.5 mg Instruction: 1.5 x 5 mg tablets Condition: Sunday Dose/Route: 6 mg Instruction: 1 x 6 mg tablet Condition: Dose/Route: 6 mg Instruction: 1 x 6 mg tablet Condition: Sunday Dose/Route: 6 mg Instruction: 1 x 6 mg tablet Condition: Sunday Dose/Route: 6 mg Instruction: 1 x 6 mg tablet Protocol Text: Adjustment Start Date: Sunday08/17/23 INR Value: 2.7 INR Date: 08/17/23 Recheck Date: 09/16/23 Rx Instructions: 6 mg PO daily daily: take with 1.5 of 1 mg tablet to = 7.5 mg on Tuesdays, or as directed.; atorvastatin 40 mg tablet 40 mg PO QHS Qty: 90 3RF Referrals / Follow Up: Bartolo Mitchell DO [Primary Care Provider] -
[2023-12-04 09:30] VITALS: BP 118/62; PULSE 71; RESP 18; TEMP 36.1; O2SAT 94
[2023-12-04 09:45] VITALS: PULSE 71
[2023-12-04] MEDS: Pantoprazole Sodium 40 MG Tablet PO (09:45)
[2023-12-04] MEDS: Cholecalciferol (VIT D3) 25 MCG TABLET (1,000 UNITS) 50 MCG PO (09:45)
[2023-12-04] MEDS: Metoprolol Tartrate 50 MG Tablet PO (09:45)
[2023-12-04] MEDS: Potassium Chloride Oral Tablet 10 MEQ PO (09:45)
[2023-12-04] MEDS: RisperiDONE 2 MG Tablet 4 MG PO (09:45)
[2023-12-04] MEDS: FLUoxetine 20 MG Capsule PO (09:45)
--- NOTE | 2023-12-04 10:23 | CASEMGMT ---
Social Work SW gave pt resources for food, offered to make a referral for [employer] Whe[employer], pt declined referral, has number to call himself should he decide he would like Meals on Wheels. TAYA Modi
--- NOTE | 2023-12-04 12:10 | PCM.DC.SUM ---
Providers Date of Admission: 12/01/23 Date of Discharge: 12/04/23 Primary Care Physician: Dr. Bartolo Mitchell, DO Consultations 12/01/23 01:13 Consult: Cardiology Routine Consulting Provider: [facility] Reason for Consult: Suspected Mobitz type II second-degree block on EKG with syncope. 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 (3) H/O mechanical aortic valve replacement: Status: Acute Code(s): Z95.2 - Presence of prosthetic heart valve (4) Atherosclerosis of coronary artery of [place] heart without angina pectoris: Status: Chronic Code(s): I25.10 - Atherosclerotic heart disease of [place] coronary artery without angina pectoris Qualifiers: Coronary Disease-Associated Artery/Lesion type: [place] artery Qualified Code(s): I25.10 - Atherosclerotic heart disease of [place] coronary artery without angina pectoris (5) SVT (supraventricular tachycardia): Status: Acute Code(s): I47.10 - Supraventricular tachycardia, unspecified (6) Presence of permanent cardiac pacemaker: Status: Acute Code(s): Z95.0 - Presence of cardiac pacemaker Plan #Syncope due to Mobitz type II heart block INR down to 1.8 today. Namenda and donepezil discontinued as they can cause bradycardia. 2D echo showed EF of 45 to 50% with normal aortic valve mechanical prosthesis. TSH is within normal limits. Had pacemaker insertion today. Cardiology on board. #Chronic microcytic anemia: Hemoglobin at baseline and stable. Will monitor. #Supratherapeutic INR: Resolved. #CAD: S/p CABG in 2019. Metoprolol on hold. Aspirin also held. On atorvastatin. #Hyperlipidemia: On statin #History of A-fib: Metoprolol on hold due to bradycardia. Pacemaker insertion today. Coumadin on hold #In for renal aortic aneurysm: Is 4.3 cm in diameter. Will need to follow-up with vascular surgeon on outpatient basis. #History of asthma and COPD: Not in exacerbation. On breathing treatments bronchodilators. Patient vapes. Counseled to quit. #JAMES: On CPAP nightly but not very compliant with this. #Restless leg syndrome: On Requip #History of GERD: On PPI #History of bipolar disorder: On Risperdal, trazodone, fluoxetine and BuSpar as well as Cogentin #History of dementia: Donepezil and Namenda on hold as they can cause bradycardia DVT prophylaxis: SCDs Medications at Discharge Home Medications benztropine 2 mg tablet 1 mg PO TID shaking 10/20/15 buspirone 10 mg tablet 15 mg PO TID anxiety 09/12/18 donepezil 10 mg tablet (Aricept) 10 mg PO QHS memory 10/03/18 fluoxetine 40 mg capsule 20 mg PO DAILY mental health 04/19/20 cholecalciferol (vitamin D3) 50 mcg (2,000 unit) tablet 50 mcg PO DAILY vitamin 11/01/20 pantoprazole 40 mg tablet,delayed release 40 mg PO BID reflux 11/01/20 trazodone 50 mg tablet 50 mg PO QHS sleep 08/15/21 aspirin 81 mg tablet 81 mg PO DAILY BLOOD THINNER 09/27/21 albuterol sulfate 2.5 mg/3 mL (0.083 %) solution for nebulization 2.5 mg (3 mL) inhalation Q4H PRN Sob &/Or Wheezing #180 mL 02/02/22 risperidone 4 mg tablet 4 mg PO BID FOR BRAIN 02/02/22 furosemide 40 mg tablet (Lasix) 40 mg PO DAILY HEART 04/07/22 montelukast 10 mg tablet (Singulair) 10 mg PO QHS allergies 04/07/22 sennosides 8.6 mg-docusate sodium 50 mg tablet (Stool Softener-Stimulant Laxative) 2 tab PO BID BM #30 tabs 04/20/22 benralizumab 30 mg/mL subcutaneous syringe (Fasenra) 30 mg subcut Q8W #1 mL 09/14/22 metoprolol tartrate 50 mg tablet (Lopressor) 50 mg PO BID BP #180 tabs 12/10/22 warfarin 5 mg tablet 5 mg PO .COMPLEX BLOOD #90 tabs 04/05/23 warfarin 1 mg tablet 1 mg PO .COMPLEX BLOOD THINNER #45 tabs 07/30/23 warfarin 6 mg tablet 6 mg PO .COMPLEX BLOOD THINNER #90 tabs 07/30/23 atorvastatin 40 mg tablet 40 mg PO QHS #90 tabs 11/14/23 doxycycline monohydrate 100 mg capsule 100 mg PO BID ABX #14 CAPSULES 11/26/23 memantine 5 mg tablet (Namenda) 10 mg PO BID memory 11/26/23 Hospital Course Operations None Procedures 2-D Echocardiogram and - (Pacemaker insertion) Summary of Care Provided Minutes Spent on Discharge: 48 Hospital Course: Patient is a 67-year-old male with an extensive past medical history as outlined was admitted through the ED on 12/01/2023 with a complaint of syncope. Was walking down a flight of steps about 30 minutes prior to admission. He felt dizzy and then passed out. He subsequently fell and struck his head against the wall. Patient could not member the syncopal event though it was witnessed by his family. There was no evidence of seizure activity or bladder or bowel incontinence. He denied any other symptoms. EKG showed Mobitz type II heart block. Cardiology was consulted and recommendation was for patient to have a pacemaker inserted. He was therefore admitted and managed for second-degree heart block. He had 2D echo which showed EF of 45 to 50% with normal aortic valve mechanical prosthesis. TSH was within normal limits. His INR was supratherapeutic when he was given vitamin K and INR subsequently trended downwards. He had a pacemaker inserted on 12/03/2023. Postop course was uneventful. Patient had also been having some tachycardia so cardiology recommended the patient continues on his metoprolol home dose. Patient was discharged on 12/04/2023. He is follow-up with his primary care doctor and follow-up with cardiology within 1 to 2 weeks and was also placed back on his Coumadin. He is follow-up with his PCP for monitoring of his INR. Patient seen and examined prior to discharge. He had no active complaints and had an uneventful night. Review of systems otherwise negative. Labs and vitals reviewed. Home medication reviewed and reconciled. Physical Exam Const alert, oriented x3, no apparent distress and well nourished General Appearance: cooperative, comfortable and well kempt Orientation / Consciousness: awake HEENT normocephalic, head/scalp atraumatic, hearing grossly normal bilaterally, moist oral mucous membranes and oropharynx normal Mouth: oral and palatal mucosa normal Eyes PERRL and EOMs intact bilaterally Neck no lymphadenopathy and supple Lymph Lymphatic: no lymphadenopathy noted and no lymphedema noted Resp normal respiratory effort, normal air movement, no retractions, no use of accessory muscles and clear to auscultation bilaterally Auscultation: Negative for rales, rhonchi or wheezes Cardio regular rate, regular rhythm, S1 normal heart sound, S2 normal heart sound, no murmurs, no rub and no gallops; Negative for no clicks Cardio Narrative: pacemaker in situ; intact dressing over pacemaker site in left subclavian area. LUE in sling GI normal to inspection, nondistended, normoactive bowel sounds, soft to palpation, non-tender and non-distended Extremity normal capillary refill, no clubbing, cyanosis or edema and no calf tenderness Extremity Narrative: Pedal pulses are 2+ General Extremity: no tenderness to palpation of joints or extremities Skin Skin Narrative: Intact dressing over site of pacemaker insertion. General Skin Exam: no breakdown Neuro oriented x3, CN's II-XII intact bilaterally, moves all extremities, no focal motor deficits, no sensory deficits noted and deep tendon reflexes 2+ bilaterally Sensorium / Orientation: awake and alert Speech: speech normal Motor Exam: strength 5/5 throughout and general weakness Psych thought process normal, cooperative and affect normal Appearance: appropriate Weight / BMI Weight Weight: 236 lb 12.423 oz Body Mass Index (BMI) 31.2 ABG / Lab / Microbiology Data 12/04/23 06:50 12/04/23 06:50 Laboratory: Laboratory Results - last 24 hr 12/04/23 06:50: WBC 8.5, RBC 3.74 L, Hgb 11.5 L, Hct 35.6 L, MCV 95.2 H, MCH 30.7, MCHC 32.3, RDW Std Deviation 50.8 H, RDW Coeff of Adalberto 14.6, Plt Count 188, MPV 9.1, Immature Gran % (Auto) 0.600, Neut % (Auto) 70.6 H, Lymph % (Auto) 14.1 L, [place] % (Auto) 14.6 H, Eos % (Auto) 0.0, Baso % (Auto) 0.1, Absolute Neuts (auto) 6.0, Absolute Lymphs (auto) 1.20, Nucleated RBC % 0, Sodium 135 L, Potassium 3.6, Chloride 105, Carbon Dioxide 25.0, Anion Gap 5, BUN 11, Creatinine 0.80, Estim Creat Clear Calc 116.78, Est GFR (MDRD) Af Amer 123, Est GFR (MDRD) Non-Af 102, BUN/Creatinine Ratio 13.7, Glucose 109 H, Calcium 8.2 L Radiography Diagnostic Testing: Radiology Impression Chest X-Ray 12/04/23 05:55 IMPRESSION: 1. Atelectasis and/or small infiltrate in the left lower lobe. 2. No visualized pneumothorax. 3. Status post placement of permanent AV pacemaker. Electronically Signed: Wei Nieto MD at 5:57 EDT , D/C Instructions Discharge Diet: Low fat / Low cholesterol Discharge Activity: Return to Normal Activity May shower in (days): 2 Weight Bearing Status: Weight bearing as tolerated Additional Activity Instructions: May shower or bathe on [day 3]. Do not scrub the incision or soak in the tub. Just wash with soap and let the water run over the incision. Gently pat dry with towel. Medications: Take your pain medication as directed. Refer to your discharge instruction sheet for a list of medications you are to take. Call your doctor if your incision/area has: Continuous Slow Oozing, Sudden Increased Bleeding, Increased Pain/ Swelling, Increased Redness, Foul Smelling Discharge and Swelling at the incision site Call your doctor if you observe: Fever of 101 or Higher, Shortness of breath, Dizziness, Fainting spells, Swelling in the ankles, Chest pain, Prolonged hiccupping and Increased palpitations (irregular heartbeat) Suture Line Care: Avoid Pulling/Pushing and Avoid Pinching/Bending Cleanse incision/area with: Keep Dressing Clean & Dry Additional Dressing/Incision Instructions: When dressing is removed, wash and dry incision. Keep covered with a light bandage if it is rubbing against your clothing. Do not cover the incision with an airtight bandage. Change the bandage daily. Do not remove steri strips. The strips will fall off on their own. Please Follow Up With: Oscar Arvizu MD When: Pacer follow-up on December 13 at 11 AM in the pacemaker clinic. Meaningful Use Info Meaningful Use Diagnoses (Choose all that apply): None applicable Discharge Plan Admission Admit Date/Time: 12/01/23 00:29 Primary Reason for Your Visit: second degree heart block Attending Provider: Magali Rich Primary Care Provider: Bartolo Mitchell Consulting Providers: Liliana Quiñonez; Chika Tran; Vanesa Brown; Kosta Knox; Patricia Berry; Oscar Arvizu; Dany Lamb; Lex Monique; Abisai Ko; Lucius Briceño; Perez Patrick; Prema Cooper; Marco A Cross; Stan Yousif; William Wheat; Karlo Pantoja; Conor Cagle DIESEL DRAGLINE OPERATOR; Liliana Rodriguez DIESEL DRAGLINE OPERATOR; Kayleigh Fountain; Fady Wesley; Maria Luisa Sunshine Instructions Patient Instructions: Pacemakers, Living with a Pacemaker, Pacemaker Implant Dc Discharge Orders/Prescriptions Prescriptions: Continued buspirone 10 mg tablet 15 mg PO TID fluoxetine 40 mg capsule 20 mg PO DAILY risperidone 4 mg tablet 4 mg PO BID Patient Comments: PT DOES NOT KNOW WHY HE TAKES IT. albuterol sulfate 2.5 mg /3 mL (0.083 %) solution for nebulization 2.5 mg INHALATION Q4H PRN (Reason: Sob &/Or Wheezing) Qty: 180 3RF Fasenra 30 mg/mL syringe 30 mg SC Q8W Qty: 1 11RF doxycycline monohydrate 100 mg capsule 100 mg PO BID Qty: 14 0RF benztropine 2 MG tablet 1 mg PO TID Patient Comments: prevent side effects of medications donepezil [Aricept] 10 MG tablet 10 mg PO QHS pantoprazole 40 MG tablet 40 mg PO BID cholecalciferol (vitamin D3) 50 MCG tablet 50 mcg PO DAILY memantine [Namenda] 5 mg tablet 10 mg PO BID trazodone 50 mg Tablet 50 mg PO QHS aspirin 81 mg Tablet 81 mg PO DAILY furosemide [Lasix] 40 mg Tablet 40 mg PO DAILY montelukast [Singulair] 10 mg tablet 10 mg PO QHS sennosides-docusate sodium [Stool Softener-Stimulant Laxat] 8.6-50 mg Tablet 2 tab PO BID Qty: 30 0RF Rx Instructions: Take until first bowel movement, then as needed metoprolol tartrate [Lopressor] 50 mg tablet 50 mg PO BID Qty: 180 3RF warfarin 5 mg tablet 5 mg PO .COMPLEX Qty: 90 3RF Protocol: Dose Management Condition: Sunday Dose/Route: 6 mg Instruction: 1 x 6 mg tablet Condition: Sunday Dose/Route: 6 mg Instruction: 1 x 6 mg tablet Condition: Sunday Dose/Route: 7.5 mg Instruction: 1.5 x 5 mg tablets Condition: Sunday Dose/Route: 6 mg Instruction: 1 x 6 mg tablet Condition: Dose/Route: 6 mg Instruction: 1 x 6 mg tablet Condition: Sunday Dose/Route: 6 mg Instruction: 1 x 6 mg tablet Condition: Sunday Dose/Route: 6 mg Instruction: 1 x 6 mg tablet Protocol Text: Adjustment Start Date: Sunday08/17/23 INR Value: 2.7 INR Date: 08/17/23 Recheck Date: 09/16/23 Rx Instructions: 5 mg PO Take 5 mg daily or as directed for dose changes. warfarin 1 mg tablet 1 mg PO .COMPLEX Qty: 45 3RF Protocol: Dose Management Condition: Sunday Dose/Route: 6 mg Instruction: 1 x 6 mg tablet Condition: Sunday Dose/Route: 6 mg Instruction: 1 x 6 mg tablet Condition: Sunday Dose/Route: 7.5 mg Instruction: 1.5 x 5 mg tablets Condition: Sunday Dose/Route: 6 mg Instruction: 1 x 6 mg tablet Condition: Dose/Route: 6 mg Instruction: 1 x 6 mg tablet Condition: Sunday Dose/Route: 6 mg Instruction: 1 x 6 mg tablet Condition: Sunday Dose/Route: 6 mg Instruction: 1 x 6 mg tablet Protocol Text: Adjustment Start Date: Sunday08/17/23 INR Value: 2.7 INR Date: 08/17/23 Recheck Date: 09/16/23 Patient Comments: PER , TAKES 6MG EVERY DAY EXCEPT SUNDAY, ON SUNDAY HE TAKES 7.5MG Rx Instructions: 1 mg PO take 1.5 tablets with a 6 mg tablet on Tuesdays, or as directed; warfarin 6 mg tablet 6 mg PO .COMPLEX Qty: 90 3RF Protocol: Dose Management Condition: Sunday Dose/Route: 6 mg Instruction: 1 x 6 mg tablet Condition: Sunday Dose/Route: 6 mg Instruction: 1 x 6 mg tablet Condition: Sunday Dose/Route: 7.5 mg Instruction: 1.5 x 5 mg tablets Condition: Sunday Dose/Route: 6 mg Instruction: 1 x 6 mg tablet Condition: Dose/Route: 6 mg Instruction: 1 x 6 mg tablet Condition: Sunday Dose/Route: 6 mg Instruction: 1 x 6 mg tablet Condition: Sunday Dose/Route: 6 mg Instruction: 1 x 6 mg tablet Protocol Text: Adjustment Start Date: Sunday08/17/23 INR Value: 2.7 INR Date: 08/17/23 Recheck Date: 09/16/23 Rx Instructions: 6 mg PO daily daily: take with 1.5 of 1 mg tablet to = 7.5 mg on Tuesdays, or as directed.; atorvastatin 40 mg tablet 40 mg PO QHS Qty: 90 3RF Referrals / Follow Up: Lucius Briceño MD [Med Staff - Active Staff] - 12/20/23 3:00 pm (pacer check-aleisha stiles 12/14/2023 at 11:00.) Bartolo Mitchell DO [Primary Care Provider] - 12/12/23 4:30 pm Disposition Disposition (needs filled in before D/C Order can be placed): Home, Self Care Charges/Coding Visit Charges Inpatient E&M: 39798 Disch Hosp >30min
--- NOTE | 2023-12-04 12:56 | PHA.DC.MR.R ---
Pharmacy [place] Med Reconciliation Pharmacy Service has performed discharge medication reconciliation for this patient. The patient's discharge medication list was reviewed for discrepancies and discrepancies were resolved. Medications at Discharge Home Medications benztropine 2 mg tablet 1 mg PO TID shaking 10/20/15 buspirone 10 mg tablet 15 mg PO TID anxiety 09/12/18 donepezil 10 mg tablet (Aricept) 10 mg PO QHS memory 10/03/18 fluoxetine 40 mg capsule 20 mg PO DAILY mental health 04/19/20 cholecalciferol (vitamin D3) 50 mcg (2,000 unit) tablet 50 mcg PO DAILY vitamin 11/01/20 pantoprazole 40 mg tablet,delayed release 40 mg PO BID reflux 11/01/20 trazodone 50 mg tablet 50 mg PO QHS sleep 08/15/21 aspirin 81 mg tablet 81 mg PO DAILY BLOOD THINNER 09/27/21 albuterol sulfate 2.5 mg/3 mL (0.083 %) solution for nebulization 2.5 mg (3 mL) inhalation Q4H PRN Sob &/Or Wheezing #180 mL 02/02/22 risperidone 4 mg tablet 4 mg PO BID FOR BRAIN 02/02/22 furosemide 40 mg tablet (Lasix) 40 mg PO DAILY HEART 04/07/22 montelukast 10 mg tablet (Singulair) 10 mg PO QHS allergies 04/07/22 sennosides 8.6 mg-docusate sodium 50 mg tablet (Stool Softener-Stimulant Laxative) 2 tab PO BID BM #30 tabs 04/20/22 benralizumab 30 mg/mL subcutaneous syringe (Fasenra) 30 mg subcut Q8W #1 mL 09/14/22 metoprolol tartrate 50 mg tablet (Lopressor) 50 mg PO BID BP #180 tabs 12/10/22 warfarin 5 mg tablet 5 mg PO .COMPLEX BLOOD #90 tabs 04/05/23 warfarin 1 mg tablet 1 mg PO .COMPLEX BLOOD THINNER #45 tabs 07/30/23 warfarin 6 mg tablet 6 mg PO .COMPLEX BLOOD THINNER #90 tabs 07/30/23 atorvastatin 40 mg tablet 40 mg PO QHS #90 tabs 11/14/23 doxycycline monohydrate 100 mg capsule 100 mg PO BID ABX #14 CAPSULES 11/26/23 memantine 5 mg tablet (Namenda) 10 mg PO BID memory 11/26/23
[2023-12-04 13:02] VITALS: PULSE 63; RESP 20
--- NOTE | 2023-12-04 14:44 | CASEMGMT ---
Patient has order for discharge. Patient worked with therapy, no therapy recommended at discharge as patient is at baseline. RN CM in to discuss needs at discharge. Patient denies needs or help at discharge as patient lives with and children that can assist if needed. Patient had no further questions or concerns.
--- NOTE | 2023-12-13 10:00 | CL.IE_ITS ---
Patient: PASHA DENISE Study Date: 12/03/2023 Performing: Oscar Arvizu MD : [id number] Age: 67 Gender: male PROCEDURES PERFORMED [id number]-([id number])INITIAL PACER INSERT+DUAL LEADS [id number]-([id number])REMOVAL OF LOOP RECORDER INDICATIONS Mobitz (type II) AV block PROCEDURE DETAILS The patient was brought to the Catheterization Lab in the postabsorptive nonsedated state. Informed consent was obtained prior to the procedure. Access was achieved and a guidewire was advanced into the left subclavian vein. Incision was made to the left upper chest. A peel-away sheath was inserted into the left subclavian vein. PPM ventricular lead was inserted / positioned to right ventricular apex. PPM ventricular lead testing performed. PPM ventricular lead testing performed. PPM atrial lead was inserted / positioned to the right atrial appendage. PPM atrial lead testing performed. Device pocket was irrigated with antibiotic. PPM generator was attached to the lead(s) and inserted into the pocket. PPM generator was then interrogated by the senior statistical programmer. The Atrial lead sutured in place with 4-0 Vicryl. The Ventricular PM lead sutured in place with 4-0 Vicryl. The PPM generator was sutured in place with 4-0 Vicryl. Subcutaneous closure was completed. Skin closure was completed. Steri-strips applied to Lt chest area. The patient tolerated the procedure well. Estimated Blood Loss: < 10 mls IMPLANTED / EX-PLANTED DEVICES IMPLANTED DEVICE(S): PPM Generator - Insulation Helper: [employer], Model # [id number] , Serial # [id number] PPM Ventricular lead - Insulation Helper: [employer], Model # [id number] , Serial # [id number] Atrial lead - Insulation Helper: [employer], Model # [id number] , Serial # [id number] DEVICE PARAMETERS ATRIAL LEAD PARAMETERS: P wave- 1.1 (mV) threshold- 1.0 (V) impedence- 477 (OHMS) VENTRICULAR LEAD PARAMETERS: R wave- 14 (mV) threshold- .6 (V) impedence- 681 (OHMS) DEVICE PARAMETERS: Mode- ddd Lower rate- 60 Upper rate- 120 CONCLUSIONS / RECOMMENDATIONS Device Conclusions: Successful implantation of a dual chamber pacemaker Device Recommendations: Follow up with Primary Care Physician PROCEDURE MEDICATIONS Versed 1 mg IV Fentanyl 50 mcg IV Oxygen: 2 L/min via nasal cannula Ancef 2 Gm IV @ 12/03/2023 12:30:05 Signed By Oscar Arvizu MD On 12/13/2023 10:00:08 Oscar Arvizu MD
== END 2023-12-04 15:17 | disposition home or self-care (01) | DRG 244 ==
LOC: ED 22:54 → PCU 12-01 01:01
PROVIDERS: Internal Medicine; Internal Medicine Cardiovascular Disease; Internal Medicine Interventional Cardiology; Admitting Provider Internal Medicine; Emergency Provider Emergency Medicine; PCP Preventive Medicine Occupational Medicine; Visit Provider Student in an Organized Health Care Education/Training Program
DX: I44.1 Atrioventricular block, second degree (principal); S09.90XA Unspecified injury of head, initial encounter; F12.10 Cannabis abuse, uncomplicated; D50.9 Iron deficiency anemia, unspecified; E78.5 Hyperlipidemia, unspecified; E66.9 Obesity, unspecified; F01.50 Vascular dementia, unspecified severity, without behavioral disturbance, psychotic disturbance, mood disturbance, and anxiety; F31.9 Bipolar disorder, unspecified; J44.9 Chronic obstructive pulmonary disease, unspecified; I10 Essential (primary) hypertension; G25.81 Restless legs syndrome; I69.398 Other sequelae of cerebral infarction; M51.36 Other intervertebral disc degeneration, lumbar region; K21.9 Gastro-esophageal reflux disease without esophagitis; E87.6 Hypokalemia; G47.33 Obstructive sleep apnea (adult) (pediatric); I25.10 Atherosclerotic heart disease of native coronary artery without angina pectoris; I25.2 Old myocardial infarction; W10.9XXA Fall (on) (from) unspecified stairs and steps, initial encounter; I71.43 Infrarenal abdominal aortic aneurysm, without rupture; Z95.2 Presence of prosthetic heart valve; I47.10 Supraventricular tachycardia, unspecified; R79.1 Abnormal coagulation profile; Z91.198 Patient's noncompliance with other medical treatment and regimen for other reason; Z79.2 Long term (current) use of antibiotics; Z79.01 Long term (current) use of anticoagulants; Z79.82 Long term (current) use of aspirin; Z87.891 Personal history of nicotine dependence; Z95.0 Presence of cardiac pacemaker; Z95.5 Presence of coronary angioplasty implant and graft; Z95.1 Presence of aortocoronary bypass graft; Z68.33 Body mass index [BMI] 33.0-33.9, adult
CPT/HCPCS: 33208; 33286; 36415; 70450; 71045; 71047; 72072; 72100; 72125; 72170; 80048; 80053; 80164; 80307; 82607; 82746; 83735; 84100; 84443; 85025; 85027; 85610; 93005; 93306; 94640; 94668; 97116; 97162; 97166; 97168; 97530; 99152; 99153; 99252; 99285; J7030; A4216; C1894; G0463; J2405

== ENCOUNTER 2023-12-14 11:31 | Outpatient (RCR) | payer MEDICARE, SELFPAY ==
[2023-09-02 23:16] VITALS: BMI 34.7
[2023-12-07 14:03] LABS: International Normalized Ratio 2.1; Prothrombin Time (Protime)PT. 23.8 SECONDS (11.7-14.9)
[2023-12-14 12:13] LABS: International Normalized Ratio 2.1; Prothrombin Time (Protime)PT. 23.2 SECONDS (11.7-14.9)
== END 2024-01-01 23:47 | disposition home or self-care (01) ==
LOC: LAB 11:31
PROVIDERS: Family Provider Preventive Medicine Occupational Medicine; PCP Preventive Medicine Occupational Medicine; Referring Provider Internal Medicine Cardiovascular Disease; Visit Provider Internal Medicine Cardiovascular Disease
DX: Z95.2 Presence of prosthetic heart valve (principal); Z79.01 Long term (current) use of anticoagulants
CPT/HCPCS: 36415; 85610

== ENCOUNTER 2024-02-01 10:45 | Outpatient (RCR) | payer MEDICARE, SELFPAY ==
[2024-01-01 23:47] VITALS: BMI 34.7
[2024-01-11 10:05] LABS: International Normalized Ratio 3.4; Prothrombin Time (Protime)PT. 33.8 SECONDS (11.7-14.9)
[2024-02-01 11:32] LABS: International Normalized Ratio 2.6; Prothrombin Time (Protime)PT. 27.8 SECONDS (11.7-14.9)
== END 2024-02-01 18:00 | disposition home or self-care (01) ==
LOC: LAB 10:45
PROVIDERS: Family Provider Preventive Medicine Occupational Medicine; PCP Preventive Medicine Occupational Medicine; Referring Provider Internal Medicine Cardiovascular Disease; Visit Provider Internal Medicine Cardiovascular Disease
DX: Z95.2 Presence of prosthetic heart valve (principal); Z79.01 Long term (current) use of anticoagulants
CPT/HCPCS: 36415; 85610

== ENCOUNTER 2024-03-31 12:00 | Outpatient (RCR) | payer MEDICARE, SELFPAY ==
[2024-02-04 09:42] VITALS: BMI 34.7
[2024-03-11 14:25] LABS: International Normalized Ratio 1.8; Prothrombin Time (Protime)PT. 20.5 SECONDS (11.7-14.9)
[2024-03-14 12:38] LABS: International Normalized Ratio 2.7; Prothrombin Time (Protime)PT. 28.2 SECONDS (11.7-14.9)
[2024-03-31 12:55] LABS: Prothrombin Time (Protime)PT. 22.5 SECONDS (11.7-14.9)
== END 2024-04-02 18:00 | disposition home or self-care (01) ==
LOC: LAB 12:00
PROVIDERS: Family Provider Preventive Medicine Occupational Medicine; PCP Preventive Medicine Occupational Medicine; Referring Provider Internal Medicine Cardiovascular Disease; Visit Provider Internal Medicine Cardiovascular Disease
DX: Z95.2 Presence of prosthetic heart valve (principal); Z79.01 Long term (current) use of anticoagulants
CPT/HCPCS: 36415; 85610

== ENCOUNTER 2024-05-01 10:57 | Outpatient (RCR) | payer MEDICARE, SELFPAY ==
[2024-04-02 22:33] VITALS: BMI 34.7
[2024-04-22 11:39] LABS: International Normalized Ratio 1.4
[2024-05-01 11:50] LABS: International Normalized Ratio 1.7; Prothrombin Time (Protime)PT. 19.7 SECONDS (11.7-14.9)
== END 2024-05-01 18:00 | disposition home or self-care (01) ==
LOC: LAB 10:57
PROVIDERS: Family Provider Preventive Medicine Occupational Medicine; PCP Preventive Medicine Occupational Medicine; Referring Provider Internal Medicine Cardiovascular Disease; Visit Provider Internal Medicine Cardiovascular Disease
DX: Z95.2 Presence of prosthetic heart valve (principal); Z79.01 Long term (current) use of anticoagulants
CPT/HCPCS: 36415; 85610

== ENCOUNTER 2024-06-24 12:27 | Outpatient (RCR) | payer MEDICARE, SELFPAY ==
[2024-05-04 05:11] VITALS: BMI 34.7
[2024-06-24 13:53] LABS: Prothrombin Time (Protime)PT. 22.1 SECONDS (11.7-14.9)
== END 2024-06-24 18:00 | disposition home or self-care (01) ==
LOC: LAB 12:27
PROVIDERS: Family Provider Preventive Medicine Occupational Medicine; PCP Preventive Medicine Occupational Medicine; Referring Provider Internal Medicine Cardiovascular Disease; Visit Provider Internal Medicine Cardiovascular Disease
DX: Z95.2 Presence of prosthetic heart valve (principal); Z79.01 Long term (current) use of anticoagulants
CPT/HCPCS: 36415; 85610

== ENCOUNTER → 2025-03-11 | Outpatient (CLI) | payer MEDICARE, SELFPAY ==
[2025-03-11 10:13] LABS: Hematocrit 38.3 % (40-54); Hemoglobin 11.9 g/dL (13.0-16.5); Immature Granulocytes Count 0.020 X10^3/uL (0.0-0.0); Mean Corp Hgb Conc 31.1 g/dL (32-36); Mean Corpuscular Volume 89.5 fL (80-94); Mean Platelet Vol. 8.9 fl (6.2-12.0); NRBC Flagged by Analyzer 0 % (0-5); Platelet Count 212 K/mm3 (150-450); RBC Distribution Width CV 14.5 % (11.6-14.6); RBC Distribution Width SD 47.0 fl (35.1-43.9); Red Blood Count 4.28 M/mm3 (4.6-6.2); White Blood Count 7.5 K/mm3 (4.4-11.0)
[2025-03-11 10:20] LABS: Prothrombin Time (Protime)PT. 46.8 SECONDS (11.7-14.9)
[2025-03-11 11:12] LABS: AST(SGOT) 25 U/L (<=37); Alanine Aminotransfer ALT/SGPT 16 U/L (<=46); Albumin, Serum 3.8 g/dL (3.4-4.8); Alkaline Phosphatase 201 U/L (40-129); Anion Gap 9 (5-15); BUN 14 mg/dL (4-19); BUN/Creat Ratio 14.3 RATIO (10-20); Calcium,Total 8.9 mg/dL (7.6-11.0); Carbon Dioxide 25.6 mmol/L (21.0-32.0); Chloride 103 mmol/L (98-108); Cholesterol 106 mg/dL (<=200); Globulin 3.2 g/dL (2.2-4.2); Glucose 111 mg/dL (70-99); Low Density Lipoprotein Calc. 33 mg/dL; Potassium 4.7 mmol/L (3.3-5.1); Triglycerides 130 mg/dL; Very Low Density Lipoprotein 26 mg/dL (5-40); cholesterol:hdl ratio screen 2.23
== END | disposition home or self-care (01) ==
LOC: LAB 09:46
PROVIDERS: PCP Preventive Medicine Occupational Medicine; Referring Provider Physician Assistant Medical; Visit Provider Physician Assistant Medical
DX: I35.2 Nonrheumatic aortic (valve) stenosis with insufficiency (principal); I10 Essential (primary) hypertension; E78.5 Hyperlipidemia, unspecified; Z79.01 Long term (current) use of anticoagulants
CPT/HCPCS: 36415; 80053; 80061; 85025; 85610

== ENCOUNTER 2025-03-20 12:10 | Outpatient (RCR) | payer MEDICARE, SELFPAY ==
[2024-07-03 20:56] VITALS: BMI 34.7
[2025-03-13 13:11] LABS: Prothrombin Time (Protime)PT. 21.5 SECONDS (11.7-14.9)
[2025-03-20 13:21] LABS: Prothrombin Time (Protime)PT. 26.5 SECONDS (11.7-14.9)
== END 2025-04-02 21:30 | disposition home or self-care (01) ==
LOC: LAB 12:10
PROVIDERS: Family Provider Preventive Medicine Occupational Medicine; PCP Preventive Medicine Occupational Medicine; Referring Provider Internal Medicine Cardiovascular Disease; Visit Provider Internal Medicine Cardiovascular Disease
DX: Z79.01 Long term (current) use of anticoagulants
CPT/HCPCS: 36415; 85610

== ENCOUNTER 2025-06-30 11:39 | Outpatient (RCR) | payer MEDICARE, SELFPAY ==
[2025-06-30 12:41] LABS: Prothrombin Time (Protime)PT. 30.1 SECONDS (11.7-14.9)
== END 2025-06-30 18:00 | disposition home or self-care (01) ==
LOC: LAB 11:39
PROVIDERS: Family Provider Preventive Medicine Occupational Medicine; PCP Preventive Medicine Occupational Medicine; Referring Provider Internal Medicine Cardiovascular Disease; Visit Provider Internal Medicine Cardiovascular Disease
DX: Z79.01 Long term (current) use of anticoagulants
CPT/HCPCS: 36415; 85610